=== PATIENT | male | born 1945 | race African-American/Black ===

== ENCOUNTER 2016-09-28 11:16 | Inpatient (IN) | payer OTHER ==
[2016-09-28] MEDS ORDERED: ALBUTEROL SO4 2.5/IPRATROPIUM 0.5 INH SOL 3 ML VIAL.NEB. NEB ONE ×2 (11:45→12:39)
[2016-09-28] MEDS ORDERED: methylPREDNISolone NA SUCC 125 MG/2 ML VIAL IVPB ONE (12:05)
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
[2016-09-28] MEDS ORDERED: methylPREDNISolone NA SUCC 125 MG/2 ML VIAL ONE ×2 (12:30→21:14)
[2016-09-28 12:36] LABS: BASOPHIL 0.4 % (0-2.0); EOSINOPHIL 0.1 % (0-4.5); MCH 30.3 pg (25.7-33.7); MCHC 32.3 g/dl (32.0-35.9); MEAN CELL VOLUME 93.9 fl (80-96); MEAN PLT VOLUME 9.7 fl (7.5-11.1); NEUTROPHILS 87.7 % (42.8-82.8); PLATELET COUNT 219 K/MM3 (134-434); RDW 15.8 % (11.9-15.9); WHITE BLOOD COUNT 10.4 K/mm3 (4.0-10.0)
[2016-09-28] MEDS ORDERED: MAGNESIUM SULF 50% (8.12 MEQ/2 ML-1 GM VIAL) IVPB ONE (12:40)
[2016-09-28] MEDS ORDERED: MAGNESIUM SULF 50% (8.12 MEQ/2 ML-1 GM VIAL) ONE (12:41)
[2016-09-28 12:42] LABS: VENOUS BLOOD GAS HCO3 27.1 meq/L (22-29); VENOUS PH 7.26 (7.31-7.41)
[2016-09-28 12:54] LABS: ALBUMIN 3.8 g/dl (3.4-5.0); CREATININE 2.1 mg/dL (0.7-1.3)
[2016-09-28 12:58] LABS: BILIRUBIN,TOTAL 0.3 mg/dL (0.2-1.0); TOT PROT 7.3 g/dl (6.4-8.2); TROPONIN I 0.02 ng/ml (0.00-0.05)
[2016-09-28] MEDS ORDERED: AZITHROMYCIN IVPB 500 MG in DEXTROSE 5%-WATER - 250 ML IVPB ONE (14:05)
[2016-09-28] MEDS ORDERED: CEFTRIAXONE 1 GM in DEXTROSE 5%-WATER - 50 ML IVPB ONE (14:05)
[2016-09-28] MEDS ORDERED: guaiFENesin/CODEINE 10 ML UNIT-DOSE CUPS PO ONE (14:12)
[2016-09-28] MEDS ORDERED: morphine CARPU-JECT 2 MG/1 ML DISP.SYRIN IVPUSH ONE (14:12)
[2016-09-28] MEDS ORDERED: morphine CARPU-JECT 2 MG/1 ML DISP.SYRIN ONE (14:15)
[2016-09-28] MEDS ORDERED: guaiFENesin/CODEINE 5 ML UNIT-DOSE CUPS PO ONE ×2 (14:15→21:14)
[2016-09-28] MEDS ORDERED: CEFTRIAXONE 50 ML ONE (14:33)
[2016-09-28] MEDS ORDERED: AZITHROMYCIN IVPB 250 ML IVPB ONE (14:40)
[2016-09-28] MEDS ORDERED: morphine CARPU-JECT 4 MG/1 ML DISP.SYRIN IVPUSH ONE ×2 (15:18→18:53)
[2016-09-28] MEDS ORDERED: morphine CARPU-JECT 4 MG/1 ML DISP.SYRIN ONE ×2 (15:19→18:44)
--- NOTE | 2016-09-28 16:14 | EKG ---
Test Reason : Blood Pressure : / mmHG Vent. Rate : 089 BPM Atrial Rate : 089 BPM P-R Int : 174 ms QRS Dur : 086 ms QT Int : 350 ms P-R-T Axes : 031 -25 056 degrees QTc Int : 425 ms SINUS RHYTHM WITH FREQUENT PREMATURE VENTRICULAR COMPLEXES AND PREMATURE ATRIAL COMPLEXES POSSIBLE LEFT ATRIAL ENLARGEMENT LEFT VENTRICULAR HYPERTROPHY ABNORMAL ECG WHEN COMPARED WITH ECG OF 04-MAY-2016 16:56, PREMATURE VENTRICULAR COMPLEXES ARE NOW PRESENT SD INTERVAL HAS DECREASED Confirmed by SHASHANK GUTIERREZ MD ([id number]) on 09/28/2016 4:14:25 PM Referred By: Confirmed By:SHASHANK GUTIERREZ MD
--- NOTE | 2016-09-28 16:26 | PN ---
Progress Note (short form) - Note Progress Note: PULMONARY CONSULTATION DICTATED 09/28/16 IMP ACUTE ON CHRONIC HYPOXEMIC/HYPERCAPNEIC RESPIRATORY FAILURE ADVANCED COPD O2 DEPENDENT PNEUMONIA ARIELLE NODULE HTN DM CKD H/O PANCREATITIS PLAN IV STEROIDS INHALED BRONCHODILATORS ANTIBIOTICS SUPPLEMENTAL O2 SPUTUM C+S BIPAP IF PT DEVELOPES INCREASED RESPIRATORY DISTRESS,HYPERCAPNEA ABG CHEST CT MONITOR LYTES,RENAL FUNCTION MONITOR BLOOD SUGARS Problem List - Problems (1) CKD (chronic kidney disease) Code(s): N18.9 - CHRONIC KIDNEY DISEASE, UNSPECIFIED Qualifiers: Chronic kidney disease stage: unspecified stage Qualified Code(s): N18.9 - Chronic kidney disease, unspecified (2) COPD exacerbation Code(s): J44.1 - CHRONIC OBSTRUCTIVE PULMONARY DISEASE W (ACUTE) EXACERBATION (3) Cough Code(s): R05 - COUGH (4) Diabetes mellitus, insulin dependent (IDDM), uncontrolled Code(s): E10.65 - TYPE 1 DIABETES MELLITUS WITH HYPERGLYCEMIA Qualifiers: Diabetes mellitus complication status: without complication Qualified Code(s): E10.9 - Type 1 diabetes mellitus without complications (5) HTN (hypertension) Code(s): I10 - ESSENTIAL (PRIMARY) HYPERTENSION Qualifiers: Hypertension type: essential hypertension Qualified Code(s): I10 - Essential (primary) hypertension (6) Hyperlipidemia LDL goal < 100 Code(s): E78.5 - HYPERLIPIDEMIA, UNSPECIFIED (7) Pneumonia Code(s): J18.9 - PNEUMONIA, UNSPECIFIED ORGANISM Qualifiers: Pneumonia type: due to unspecified organism Laterality: right Lung location: lower lobe of lung Qualified Code(s): J18.9 - Pneumonia, unspecified organism (8) Shortness of breath Code(s): R06.02 - SHORTNESS OF BREATH (9) Wheeze Code(s): R06.2 - WHEEZING (10) Anemia Code(s): D64.9 - ANEMIA, UNSPECIFIED Qualifiers: Anemia type: unspecified anemia type (11) COPD (chronic obstructive pulmonary disease) Code(s): J44.9 - CHRONIC OBSTRUCTIVE PULMONARY DISEASE, UNSPECIFIED Qualifiers : COPD type: chronic bronchitis (12) Leg edema Code(s): R60.0 - LOCALIZED EDEMA Qualifiers: Laterality: bilateral Qualified Code(s): R60.0 - Localized edema (13) Pulmonary nodule Code(s): R91.1 - SOLITARY PULMONARY NODULE (14) Acute on chronic respiratory failure with hypoxia and hypercapnia Code(s): J96.21 - ACUTE AND CHRONIC RESPIRATORY FAILURE WITH HYPOXIA J96.22 - ACUTE AND CHRONIC RESPIRATORY FAILURE WITH HYPERCAPNIA
[2016-09-28 16:36] LABS: ALLENS TEST POSITIVE; ART PUNCT SITE RIGHT RADIAL; ARTERIAL BLD GAS O2 SATURATION 91.9 % (90-98.9); ARTERIAL BLOOD GAS BASE EXCESS -2.3 meq/l (-2-2); ARTERIAL BLOOD GAS PO2 76.3 mmHg (70-100); LPM/O2% 3L; PT. ON O2? YES
[2016-09-28 16:37] LABS: TYPE OF O2 NASAL O2
[2016-09-28 16:43] LABS: ARTERIAL BLOOD GAS pH 7.33 (7.35-7.45)
--- NOTE | 2016-09-28 17:52 | CONS ---
DATE OF CONSULTATION: 09/28/2016 PULMONARY CONSULTATION REFERRING PHYSICIAN: Misti Crenshaw M.D. HISTORY OF PRESENT ILLNESS: The patient is a 71-year-old black male known to me from previous hospitalization for advanced COPD, hypertension, hyperlipidemia, CHF, chronic kidney disease, diabetes, history of pancreatitis, BPH, anemia, admitted to [facility] with complaint of 4-day history of increasing shortness of breath, cough, and sputum production. Patient denies complaints of fevers or chills. He states that the cough is productive of whitish yellow sputum. He denies hemoptysis. He also complains of chest pain associated with the coughing. He denies any hemoptysis, denies any recent travel. He has a history of tobacco use and currently occasionally smokes a cigarette. In the emergency room he was found to be in moderate respiratory distress. He received steroids and inhaled bronchodilators with some clinical improvement. The VBG showed evidence of respiratory acidosis with a pCO2 in the 60s. PAST MEDICAL HISTORY: Again includes advanced COPD, diabetes, hyperlipidemia, hypertension, chronic kidney disease, CHF, chronic back pain, BPH, anemia, pancreatitis. MEDICATION: Prior to admission include amlodipine, aspirin, Lopid, Hytrin, Cozaar, vitamin B12, diltiazem, Movantik, prednisone, Januvia, Ambien, Lasix, Reglan, seen, Zyloprim, Augmentin,. REVIEW OF SYSTEMS: Positive cough. Positive shortness of breath. Positive orthopnea. Positive dyspnea. Positive chest congestion. Positive chest pain. No fever. No chills. No hemoptysis. No abdominal pain. Positive lower extremity edema. PHYSICAL EXAMINATION: General: The patient is an obese male, awake, alert, dyspneic, congested. Vital signs: He is currently afebrile. Blood pressure is 130/66, respiratory rate 18, O2 saturation initially was 87% on room air. HEENT: Head is normocephalic, atraumatic. Neck: Supple. Heart: Regular. S1, S2. Chest: Bilateral rhonchi and wheezes. Abdomen: Soft. Bowel sounds positive. Extremities: Bilateral lower extremity edema approximately 1+. LABORATORY: VBG: pH 7.26, pCO2 of 62, pO2 of 29. Previous pCO2s were 46 and 47. Chemistry: BUN 55, creatinine 2.1, WBC is 10.4, hemoglobin 9.7, hematocrit 30, platelet count of 219,000. Chest x-ray shows left upper lode nodule, increased markings right lower lobe. IMPRESSION: 1. [id number], acute hypoxemia, hypercapnic respiratory failure, decompensated chronic obstructive pulmonary disease. 2. Likely pneumonia, right lower lobe. 3. Left upper lobe nodule. 4. Hypertension. 5. Chronic kidney disease. 6. Hypertension. 7. History of pancreatitis. PLAN: IV steroids, inhaled bronchodilators, supplemental O2, antibiotic therapy , check arterial blood gases, BiPAP if patient develops progressive hypercapnia respiratory distress, monitor renal function, glycemia control while on glycemic control,sputum c+s. Also CT scan of chest to further evaluate possible left lobe nodule as well as right lower lobe infiltrate. ALEX CEVALLOS M.D. MAGNOLIA/[id number] MTDD
[2016-09-28] MEDS ORDERED: INSULIN (NOVOLOG MIX 70/30) 100 UNITS/ML MDV SQ ONE ×3 (18:45→18:58)
[2016-09-28] MEDS ORDERED: ALBUTEROL SO4 0.083% IH SOL 2.5 MG/3 ML VIAL.NEB. NEB ONE (20:35)
[2016-09-28 20:50] VITALS: BMI 37.3
[2016-09-28] MEDS: TIOTROPIUM BROMIDE 18 MCG/INH (DEVICE W/ 30 CAPSULES) IH SCH (21:12)
[2016-09-28] MEDS: BUDESONIDE/FORMETEROL FUMARATE 160/4.5 mcg INHALER IH SCH (21:13)
[2016-09-28] MEDS: ALBUTEROL SO4 0.083% IH SOL 2.5 MG/3 ML VIAL.NEB. NEB PRN (21:13)
[2016-09-28] MEDS: methylPREDNISolone NA SUCC 125 MG/2 ML VIAL IVPB SCH (21:20)
[2016-09-28] MEDS: guaiFENesin/CODEINE 10 ML UNIT-DOSE CUPS PO PRN (21:20)
[2016-09-29] MEDS: methylPREDNISolone NA SUCC 125 MG/2 ML VIAL IVPB SCH ×4 (02:04→22:29)
[2016-09-29] MEDS ORDERED: guaiFENesin/CODEINE 5 ML UNIT-DOSE CUPS PO PRN (05:17)
[2016-09-29] MEDS: guaiFENesin/CODEINE 10 ML UNIT-DOSE CUPS PO PRN (05:20)
[2016-09-29] MEDS: ALBUTEROL SO4 0.083% IH SOL 2.5 MG/3 ML VIAL.NEB. NEB PRN ×3 (06:30→21:14)
[2016-09-29] MEDS ORDERED: SENNOSIDES 8.6MG TABLET (FP) PO PRN (08:30)
[2016-09-29] MEDS ORDERED: PATIENT'S OWN MEDICATION (NON-FORMULARY) (Naloxegol Oxalate [Movantik] 25 MG) PO PRN (08:30)
[2016-09-29 08:41] LABS: MCH 29.8 pg (25.7-33.7); MCHC 32.2 g/dl (32.0-35.9); MEAN CELL VOLUME 92.7 fl (80-96); MEAN PLT VOLUME 9.8 fl (7.5-11.1); PLATELET COUNT 209 K/MM3 (134-434); WHITE BLOOD COUNT 12.4 K/mm3 (4.0-10.0)
[2016-09-29] MEDS ORDERED: ACETAMINOPHEN 325 MG TABLET (FP) PO PRN (08:57)
[2016-09-29] MEDS: HYDROmorphone HCL CARPU-JECT 2 MG/1 ML DISP.SYRIN IVPUSH PRN ×3 (09:29→21:38)
[2016-09-29] MEDS: LACTULOSE 20 GM/30 ML UDC (FOR ORAL USE ONLY) PO SCH (09:30)
[2016-09-29] MEDS: CEFTRIAXONE 50 ML IVPB SCH (09:31)
[2016-09-29] MEDS: sitaGLIPtin PHOSPHATE 25 MG TABLET (FP) PO SCH (09:32)
[2016-09-29] MEDS: TAMSULOSIN HCL 0.4 MG CAP.ER.24H (FP) PO SCH ×2 (09:32→22:29)
[2016-09-29] MEDS: POTASSIUM CHLORIDE TABS 20 MEQ TABLET.ER (FP) PO SCH (09:32)
[2016-09-29] MEDS: RANITIDINE HCL 150 MG TABLET (FP) PO SCH (09:32)
[2016-09-29] MEDS: ASPIRIN 81 MG CHEWABLE TABLETS PO SCH (09:32)
[2016-09-29] MEDS: DOCUSATE SODIUM 100 MG CAPSULE (FP) PO SCH ×2 (09:32→22:29)
[2016-09-29] MEDS: GEMFIBROZIL 600 MG TABLET (FP) PO SCH ×2 (09:32→22:30)
[2016-09-29] MEDS: LOSARTAN POTASSIUM 50 MG TABLET (FP) PO SCH (09:33)
[2016-09-29] MEDS: fentaNYL 75mcg/hr PATCH.TD72 TD SCH (09:33)
[2016-09-29] MEDS: ALLOPURINOL 100 MG TABLET (FP) PO SCH (09:36)
--- NOTE | 2016-09-29 10:41 | HP ---
Admitting History and Physical - Admission History of Present Illness: 71y M hx of CHF, CKD, HTN, HL, DM, COPD, back pain, bph, anemia, pancreatitis presents to 4 days of worsening cough/congestion. The pt denies any fevers/ chills. STates the cough is intermittently productive of whitish sputum. Pt endorses chest pain when he is coughing significantly. No known sick contacts or travel. The pt went to his PMDs office yesterday who gave him steroids and augmentin, but sypmtoms worsened so he came to the ED. Pt states that his coughing was bad last night, he also feels orthopneic and noticed mild leg swelling this morning. No leg pain, calf pain, hemopysis. - Past Medical History BLENDING KETTLE TENDER: Yes: Migraine Cardiovascular: Yes: CHF, HTN, Hyperlipdemia Pulmonary: Yes: COPD, O2 Dependent Gastrointestinal: Yes: GERD Renal/: Yes: Renal Inusuff, BPH, Cancer, Hematuria, UTI, Other (CKD) Heme/Onc: Yes: Anemia Psych: Yes: Anxiety Musculoskeletal: Yes: Chronic low back pain, Osteoarthritis Endocrine: Yes: Diabetes Mellitus - Past Surgical History Past Surgical History: Yes: Colonoscopy (Done last December (2013) negative for significant pathology) - Smoking History Smoking history: Former smoker Have you smoked in the past 12 months: No Aproximately how many cigarettes per day: 2 If you are a former smoker, when did you quit?: 2012 - Alcohol/Substance Use Hx Alcohol Use: No Home Medications - Allergies Allergies/Adverse Reactions: Allergies Allergy/AdvReac Type Severity Reaction Status Date / Time No Known Drug Allergies Allergy Verified 05/04/16 11:01 HOT PEPPER Allergy SNEEZING Uncoded 05/04/16 11:01 - Home Medications Home Medications: Ambulatory Orders Aspirin [ASA -] 81 mg PO Q2D@1000 #30 tab.chew 12/27/14 Gemfibrozil [Lopid -] 600 mg PO BID #180 tablet 12/27/14 Terazosin HCl [Hytrin -] 5 mg PO HS #30 capsule 12/27/14 Losartan Potassium [Cozaar -] 50 mg PO DAILY tablet 05/05/15 Cyanocobalamin [Vitamin B12 -] 1 g PO DAILY 12/19/15 Lactulose 10 gm PO DAILY 12/20/15 Iron 325 mg PO BID 02/22/16 Tamsulosin HCl [Flomax -] 0.4 mg PO BID 02/22/16 FENTANYL 75mcg PATCH [DURAGESIC 75mcg PATCH -] 1 patch TD Q72H 02/23/16 Albuterol Sulfate Inhaler - [Ventolin HFA Inhaler -] 1 - 2 inh PO Q4H #1 inhaler 03/11/16 Docusate Sodium [Colace -] 100 mg PO BID #60 capsule 03/11/16 Diltiazem Cd [Cardizem Cd -] 120 mg PO DAILY 05/05/16 Naloxegol Oxalate [Movantik] 25 mg PO DAILY PRN 05/05/16 Potassium Chloride [K-Dur -] 20 meq PO DAILY 05/05/16 Prednisone 10 mg PO DAILY 05/05/16 Sitagliptin Phosphate [Januvia] 25 mg PO DAILY 05/05/16 Zolpidem Tartrate [Ambien] 10 mg PO HS PRN 05/05/16 Furosemide [Lasix -] 60 mg PO DAILY tablet 05/09/16 Metoclopramide HCl [Reglan -] 5 mg PO TIDAC tablet 05/09/16 Sennosides [Senna -] 2 tab PO HS PRN #0 tablet 05/09/16 Oxycodone HCl/Acetaminophen [Percocet 10-325 mg Tablet] 1 each PO TID PRN #60 tablet MDD 3 05/10/16 Allopurinol [Zyloprim -] 100 mg PO DAILY 09/28/16 Amoxicillin/Potassium Clav [Amox-Clav 875-125 mg Tablet] 1 each PO BID 09/28/16 Cefuroxime Axetil [Cefuroxime] 500 mg PO BID 09/28/16 Lactulose [Generlac] 10 gm PO DAILY 09/28/16 Ranitidine HCl 300 mg PO DAILY 09/28/16 Sennosides [Senokot] 8.6 mg PO DAILY 09/28/16 Family Disease History - Family Disease History Family Disease History: Diabetes: Brother, Heart Disease: Brother Review of Systems - Review of Systems Cardiovascular: reports: Shortness of Breath. denies: Chest Pain Respiratory: reports: Cough, SOB Gastrointestinal: reports: Bloating, Constipation Genitourinary: denies: Burning, Discharge, Dysuria Musculoskeletal: reports: Back Pain Neurological: reports: No Symptoms Physical Examination Vital Signs: Vital Signs Temperature 98.3 F 09/29/16 06:18 Pulse Rate 82 09/29/16 06:18 Respiratory Rate 18 09/29/16 06:18 Blood Pressure 149/61 09/29/16 06:18 O2 Sat by Pulse Oximetry (%) 92 L 09/28/16 15:22 Cardiovascular: Yes: Regular Rate and Rhythm Respiratory: Yes: Rales (AT THE BASES) Edema: LLE: 1+, RLE: 1+ Neurological: Yes: Alert, Oriented Labs: CBC, BMP 09/29/16 08:10 09/29/16 08:10 Imaging - Results Cat Scan: Report Reviewed Problem List - Problems (1) COPD exacerbation Assessment/Plan: IV STEROIDS IV ABX NEBS INCENTIVE SPIROMETRY Code(s): J44.1 - CHRONIC OBSTRUCTIVE PULMONARY DISEASE W (ACUTE) EXACERBATION (2) CKD (chronic kidney disease) Assessment/Plan: MONITOR ON DIURETICS Code(s): N18.9 - CHRONIC KIDNEY DISEASE, UNSPECIFIED Qualifiers: Chronic kidney disease stage: unspecified stage Qualified Code(s): N18.9 - Chronic kidney disease, unspecified (3) Diabetes mellitus, insulin dependent (IDDM), uncontrolled Assessment/Plan: BGM ENDO Code(s): E10.65 - TYPE 1 DIABETES MELLITUS WITH HYPERGLYCEMIA Qualifiers: Diabetes mellitus complication status: without complication Qualified Code(s): E10.9 - Type 1 diabetes mellitus without complications (4) CHF (congestive heart failure) Assessment/Plan: IV LASIX MONITOR Code(s): I50.9 - HEART FAILURE, UNSPECIFIED Qualifiers: Congestive heart failure type: diastolic (5) Back pain Assessment/Plan: CHRONICALLY ON PAIN MEDS DILUADID PRN Code(s): M54.9 - DORSALGIA, UNSPECIFIED
[2016-09-29] MEDS: METOCLOPRAMIDE HCL 10 MG TABLET (FP) PO SCH ×2 (12:11→16:50)
[2016-09-29] MEDS: TIOTROPIUM BROMIDE 18 MCG/INH (DEVICE W/ 30 CAPSULES) IH SCH (12:18)
[2016-09-29] MEDS: BUDESONIDE/FORMETEROL FUMARATE 160/4.5 mcg INHALER IH SCH ×2 (12:18→22:29)
[2016-09-29] MEDS: AZITHROMYCIN IVPB 250 MG in DEXTROSE 5%-WATER - 250 ML IVPB SCH (12:18)
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
[2016-09-29] MEDS ORDERED: PT OWN MED DRAWER 7, Y5N ONE (21:14)
[2016-09-29] MEDS: TERAZOSIN HCL 5 MG CAPSULE PO SCH (22:30)
[2016-09-29] MEDS: ZOLPIDEM TARTRATE 5 MG TABLET PO PRN (22:30)
[2016-09-29] MEDS: INSULIN SLIDING SCALE (NOVOLOG) 1 VIAL SQ SCH (23:30)
[2016-09-30] MEDS: methylPREDNISolone NA SUCC 125 MG/2 ML VIAL IVPB SCH ×2 (02:00→09:16)
[2016-09-30] MEDS: HYDROmorphone HCL CARPU-JECT 2 MG/1 ML DISP.SYRIN IVPUSH PRN ×3 (02:11→20:16)
[2016-09-30] MEDS ORDERED: INSULIN (NOVOLOG) ASPART 100 UNITS/ML 10ML VIAL ONE ×3 (06:16→21:11)
[2016-09-30] MEDS: ALBUTEROL SO4 0.083% IH SOL 2.5 MG/3 ML VIAL.NEB. NEB PRN ×3 (06:29→19:43)
[2016-09-30] MEDS: sitaGLIPtin PHOSPHATE 25 MG TABLET (FP) PO SCH (06:57)
[2016-09-30] MEDS: INSULIN SLIDING SCALE (NOVOLOG) 1 VIAL SQ SCH ×5 (06:57→22:26)
[2016-09-30] MEDS: METOCLOPRAMIDE HCL 10 MG TABLET (FP) PO SCH ×3 (06:57→17:18)
--- NOTE | 2016-09-30 09:12 | PN ---
Progress Note, Physician History of Present Illness: feels better - Current Medication List Current Medications: Active Medications Acetaminophen (Tylenol -) 650 mg PO Q4H PRN PRN Reason: FEVER OR PAIN Albuterol Sulfate (Ventolin 0.083% Nebulizer Soln -) 1 amp NEB Q4H PRN PRN Reason: SHORT OF BREATH/WHEEZING Last Admin: 09/30/16 06:29 Dose: 1 amp Allopurinol (Zyloprim -) 100 mg PO DAILY [facility] Last Admin: 09/29/16 09:36 Dose: 100 mg Aspirin (Asa -) 81 mg PO Q2D@1000 [facility] Last Admin: 09/29/16 09:32 Dose: 81 mg Budesonide/Formoterol Fumarate (Symbicort 160/4.5mcg -) 2 puff IH BID [facility] Last Admin: 09/29/16 22:29 Dose: 2 puff Diltiazem HCl (Cardizem Cd -) 120 mg PO DAILY [facility] Last Admin: 09/29/16 09:32 Dose: 120 mg Docusate Sodium (Colace -) 100 mg PO BID [facility] Last Admin: 09/29/16 22:29 Dose: 100 mg Fentanyl (Duragesic 75mcg Patch -) 1 patch TD Q72H [facility] Last Admin: 09/29/16 09:33 Dose: 1 patch Gemfibrozil (Lopid -) 600 mg PO BID [facility] Last Admin: 09/29/16 22:30 Dose: 600 mg Guaifenesin/Codeine Phosphate (Robitussin Ac -) 10 ml PO Q8H PRN PRN Reason: COUGH Hydromorphone HCl (Dilaudid Injection -) 2 mg IVPUSH Q6H PRN PRN Reason: PAIN Last Admin: 09/30/16 02:11 Dose: 2 mg Ceftriaxone Sodium (Rocephin 1gm Ivpb (Pre-Docked)) 50 mls @ 100 mls/hr IVPB DAILY [facility] Last Admin: 09/29/16 09:31 Dose: 100 mls/hr Azithromycin 250 mg/ Dextrose 250 mls @ 250 mls/hr IVPB DAILY [facility] Last Admin: 09/29/16 12:18 Dose: 250 mls/hr Insulin Aspart (Novolog Vial Sliding Scale -) 1 vial SQ ACHS [facility] PRN Reason: Protocol Last Admin: 01/29/17 06:57 Dose: 4 unit Lactulose (Cephulac (Oral Use)) 10 gm PO DAILY [facility] Last Admin: 09/29/16 09:30 Dose: 10 gm Losartan Potassium (Cozaar -) 50 mg PO DAILY [facility] Last Admin: 09/29/16 09:33 Dose: 50 mg Methylprednisolone Sodium Succinate (Solu-Medrol -) 60 mg IVPB Q6H-IV [facility] Last Admin: 09/30/16 02:00 Dose: 60 mg Metoclopramide HCl (Reglan -) 5 mg PO TIDAC [facility] Last Admin: 09/30/16 06:57 Dose: 5 mg Miscellaneous (Duragesic Patch Waste) 1 each TD PRN PRN Non-Formulary Medication (Naloxegol Oxalate [Movantik]) 25 mg PO DAILY PRN PRN Reason: CONSTIPATION Potassium Chloride (K-Dur -) 20 meq PO DAILY [facility] Last Admin: 09/29/16 09:32 Dose: 20 meq Ranitidine HCl (Zantac -) 300 mg PO DAILY [facility] Last Admin: 09/29/16 09:32 Dose: 300 mg Senna (Senna -) 2 tab PO HS PRN PRN Reason: CONSTIPATION Last Admin: 09/29/16 22:32 Dose: 2 tab Sitagliptin Phosphate (Januvia -) 25 mg PO DAILY@0700 [facility] Last Admin: 09/30/16 06:57 Dose: 25 mg Tamsulosin HCl (Flomax -) 0.4 mg PO BID [facility] Last Admin: 09/29/16 22:29 Dose: 0.4 mg Terazosin HCl (Hytrin -) 5 mg PO HS [facility] Last Admin: 09/29/16 22:30 Dose: 5 mg Tiotropium [place] (Spiriva -) 1 puff IH DAILY [facility] Last Admin: 09/29/16 12:18 Dose: 1 puff Zolpidem Tartrate (Ambien -) 5 mg PO HS PRN PRN Reason: INSOMNIA Last Admin: 09/29/16 22:30 Dose: 5 mg - Objective Vital Signs: Vital Signs Temperature 97.9 F 09/30/16 06:47 Pulse Rate 82 09/30/16 06:47 Respiratory Rate 18 09/30/16 06:47 Blood Pressure 143/75 09/30/16 06:47 O2 Sat by Pulse Oximetry (%) 92 L 09/30/16 00:43 Cardiovascular: Yes: Regular Rate and Rhythm Respiratory: Yes: Rales (AT THE BASES) Gastrointestinal: Yes: Normal Bowel Sounds, Soft Edema: Yes Edema: LLE: 2+, RLE: 2+ Labs: CBC, BMP 09/29/16 08:10 09/29/16 08:10 Problem List - Problems (1) COPD exacerbation Assessment/Plan: IV STEROIDS PER PULM IV ABX NEBS INCENTIVE SPIROMETRY Code(s): J44.1 - CHRONIC OBSTRUCTIVE PULMONARY DISEASE W (ACUTE) EXACERBATION (2) CKD (chronic kidney disease) Assessment/Plan: MONITOR ON DIURETICS Code(s): N18.9 - CHRONIC KIDNEY DISEASE, UNSPECIFIED Qualifiers: Chronic kidney disease stage: unspecified stage Qualified Code(s): N18.9 - Chronic kidney disease, unspecified (3) Diabetes mellitus, insulin dependent (IDDM), uncontrolled Assessment/Plan: BGM ENDO Code(s): E10.65 - TYPE 1 DIABETES MELLITUS WITH HYPERGLYCEMIA Qualifiers: Diabetes mellitus complication status: without complication Qualified Code(s): E10.9 - Type 1 diabetes mellitus without complications (4) CHF (congestive heart failure) Assessment/Plan: IV LASIX BID MONITOR Code(s): I50.9 - HEART FAILURE, UNSPECIFIED Qualifiers: Congestive heart failure type: diastolic (5) Back pain Assessment/Plan: CHRONICALLY ON PAIN MEDS DILUADID PRN Code(s): M54.9 - DORSALGIA, UNSPECIFIED
[2016-09-30] MEDS: GEMFIBROZIL 600 MG TABLET (FP) PO SCH ×2 (09:19→21:16)
[2016-09-30] MEDS: LACTULOSE 20 GM/30 ML UDC (FOR ORAL USE ONLY) PO SCH (09:19)
[2016-09-30] MEDS: RANITIDINE HCL 150 MG TABLET (FP) PO SCH (09:19)
[2016-09-30] MEDS: CEFTRIAXONE 50 ML IVPB SCH (09:19)
[2016-09-30] MEDS: TAMSULOSIN HCL 0.4 MG CAP.ER.24H (FP) PO SCH ×2 (09:20→21:16)
[2016-09-30] MEDS: LOSARTAN POTASSIUM 50 MG TABLET (FP) PO SCH (09:20)
[2016-09-30] MEDS: POTASSIUM CHLORIDE TABS 20 MEQ TABLET.ER (FP) PO SCH (09:20)
[2016-09-30] MEDS: ALLOPURINOL 100 MG TABLET (FP) PO SCH (09:20)
[2016-09-30] MEDS: DOCUSATE SODIUM 100 MG CAPSULE (FP) PO SCH ×2 (09:20→21:16)
[2016-09-30] MEDS: BUDESONIDE/FORMETEROL FUMARATE 160/4.5 mcg INHALER IH SCH ×2 (09:22→21:21)
[2016-09-30] MEDS: TIOTROPIUM BROMIDE 18 MCG/INH (DEVICE W/ 30 CAPSULES) IH SCH (09:22)
--- NOTE | 2016-09-30 10:56 | PN ---
Progress Note (short form) - Note Progress Note: PULMONARY MILD SUBJECTIVE IMPROVEMENT OOB TO CHAIR VSS/AFEBRILE/SPO2 2L/M O2 ANICTERIC DIMINISHED B/L BS S1S2 OBESE 1+EDEMA B/L LOWER EXT LABS/MEDS/IMAGING/NOTES/MICRO REVIEWED IMP ACUTE ON CHRONIC HYPOXEMIC/HYPERCAPNEIC RESPIRATORY FAILURE ADVANCED COPD O2 DEPENDENT PNEUMONIA ARIELLE NODULE HTN DM CKD H/O PANCREATITIS PLAN IV STEROIDS DOSE ADJUSTED INHALED BRONCHODILATORS ANTIBIOTICS SUPPLEMENTAL O2 BIPAP PRN MONITOR LYTES,RENAL FUNCTION GLYCEMIC CONTROL Jered VALE MD
[2016-09-30] MEDS: AZITHROMYCIN IVPB 250 MG in DEXTROSE 5%-WATER - 250 ML IVPB SCH (11:54)
[2016-09-30] MEDS: FUROSEMIDE 40 MG/4 ML INJECTABLE VIAL IVPUSH SCH (14:36)
[2016-09-30] MEDS: methylPREDNISolone NA SUCC 40 MG/1 ML VIAL IVPB SCH (17:18)
[2016-09-30] MEDS ORDERED: PT OWN MED DRAWER 7, Y5N ONE (21:11)
[2016-09-30] MEDS: TERAZOSIN HCL 5 MG CAPSULE PO SCH (21:16)
--- NOTE | 2016-09-30 23:36 | CONSULT ---
Consult Consult Specialty:: endocrine/diabetes mellitus Referred by:: dr.iyad gilliland Reason for Consultation:: iddm uncontrolled - History of Present Illness Chief Complaint: cough wheezing difficulty breathing, high blood sugars History of Present Illness: 71y M hx of CHF, CKD, HTN, HL, DM, COPD, back pain, bph, anemia, pancreatitis presents to 4 days coughing congestion,difficulty breathing,high blood sugars while on high dose of prednisone,has felt,tightness in chest from coughing, nausea,headache,weakness,poor appetite yet high sugars,denies hypoglycemia, fever or chills - History Source History Provided By: Patient, Family Member Limitations to Obtaining History: Clinical Condition - Past Medical History 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: Yes: Migraine Cardio/Vascular: Yes: CHF, HTN, Hyperlipdemia Pulmonary: Yes: COPD, O2 Dependent Gastrointestinal: Yes: GERD Renal/: Yes: Renal Inusuff, BPH, Cancer, Hematuria, UTI, Other (CKD) Psych: Yes: Anxiety Musculoskeletal: Yes: Chronic low back pain, Osteoarthritis Endocrine: Yes: Diabetes Mellitus - Past Surgical History Past Surgical History: Yes: Colonoscopy (Done last December (2013) negative for significant pathology) - Alcohol/Substance Use Hx Alcohol Use: No - Smoking History Smoking history: Former smoker Have you smoked in the past 12 months: No Aproximately how many cigarettes per day: 2 If you are a former smoker, when did you quit?: 2013 Home Medications - Allergies Allergies/Adverse Reactions: Allergies Allergy/AdvReac Type Severity Reaction Status Date / Time No Known Drug Allergies Allergy Verified 05/04/16 11:01 HOT PEPPER Allergy SNEEZING Uncoded 05/04/16 11:01 - Home Medications Home Medications: Ambulatory Orders Aspirin [ASA -] 81 mg PO Q2D@1000 #30 tab.chew 12/27/14 Gemfibrozil [Lopid -] 600 mg PO BID #180 tablet 12/27/14 Terazosin HCl [Hytrin -] 5 mg PO HS #30 capsule 12/27/14 Losartan Potassium [Cozaar -] 50 mg PO DAILY tablet 05/05/15 Cyanocobalamin [Vitamin B12 -] 1 g PO DAILY 12/19/15 Lactulose 10 gm PO DAILY 12/20/15 Iron 325 mg PO BID 02/22/16 Tamsulosin HCl [Flomax -] 0.4 mg PO BID 02/22/16 FENTANYL 75mcg PATCH [DURAGESIC 75mcg PATCH -] 1 patch TD Q72H 02/23/16 Albuterol Sulfate Inhaler - [Ventolin HFA Inhaler -] 1 - 2 inh PO Q4H #1 inhaler 03/11/16 Docusate Sodium [Colace -] 100 mg PO BID #60 capsule 03/11/16 Diltiazem Cd [Cardizem Cd -] 120 mg PO DAILY 05/05/16 Naloxegol Oxalate [Movantik] 25 mg PO DAILY PRN 05/05/16 Potassium Chloride [K-Dur -] 20 meq PO DAILY 05/05/16 Prednisone 10 mg PO DAILY 05/05/16 Sitagliptin Phosphate [Januvia] 25 mg PO DAILY 05/05/16 Zolpidem Tartrate [Ambien] 10 mg PO HS PRN 05/05/16 Furosemide [Lasix -] 60 mg PO DAILY tablet 05/09/16 Metoclopramide HCl [Reglan -] 5 mg PO TIDAC tablet 05/09/16 Sennosides [Senna -] 2 tab PO HS PRN #0 tablet 05/09/16 Oxycodone HCl/Acetaminophen [Percocet 10-325 mg Tablet] 1 each PO TID PRN #60 tablet MDD 3 05/10/16 Allopurinol [Zyloprim -] 100 mg PO DAILY 09/28/16 Amoxicillin/Potassium Clav [Amox-Clav 875-125 mg Tablet] 1 each PO BID 09/28/16 Cefuroxime Axetil [Cefuroxime] 500 mg PO BID 09/28/16 Lactulose [Generlac] 10 gm PO DAILY 09/28/16 Ranitidine HCl 300 mg PO DAILY 09/28/16 Sennosides [Senokot] 8.6 mg PO DAILY 09/28/16 Family Disease History - Family Disease History Family Disease History: Diabetes: Brother, Heart Disease: Brother Review of Systems - Review of Systems Constitutional: reports: Loss of Appetite, Weakness Eyes: reports: Blurred Vision HENT: reports: No Symptoms Neck: reports: Decreased ROM Cardiovascular: reports: Palpitations Respiratory: reports: Exercise Intolerance, SOB on Exertion, Wheezing Gastrointestinal: reports: Bloating, Constipation, Indigestion Genitourinary: reports: No Symptoms Breasts: reports: No Symptoms Reported Musculoskeletal: reports: Muscle Weakness Integumentary: reports: No Symptoms Neurological: reports: Dizziness, Unsteady Gait, Weakness Endocrine: reports: Unexplained Weight Gain Hematology/Lymphatic: reports: No Symptoms Physical Exam Vital Signs: Vital Signs Temperature 97.7 F 09/30/16 14:00 Pulse Rate 86 09/30/16 14:00 Respiratory Rate 20 09/30/16 14:00 Blood Pressure 131/66 09/30/16 14:00 O2 Sat by Pulse Oximetry (%) 92 L 09/30/16 00:43 Constitutional: Yes: Anxious Eyes: Yes: EOM Intact HENT: Yes: Normocephalic Neck: Yes: Trachea Midline Cardiovascular: Yes: Tachycardia Respiratory: Yes: Rhonchi, SOB, Tachypnea, Wheezes Gastrointestinal: Yes: Normal Bowel Sounds ...Rectal Exam: Yes: Deferred Renal/: Yes: WNL Breast(s): Yes: WNL Edema: Yes Neurological: Yes: Alert, Oriented Labs: CBC, BMP 09/29/16 08:10 09/29/16 08:10 Problem List - Problems (1) Acute on chronic respiratory failure with hypoxia and hypercapnia Code(s): J96.21 - ACUTE AND CHRONIC RESPIRATORY FAILURE WITH HYPOXIA J96.22 - ACUTE AND CHRONIC RESPIRATORY FAILURE WITH HYPERCAPNIA (2) COPD exacerbation Code(s): J44.1 - CHRONIC OBSTRUCTIVE PULMONARY DISEASE W (ACUTE) EXACERBATION (3) Diabetes mellitus, insulin dependent (IDDM), uncontrolled Code(s): E10.65 - TYPE 1 DIABETES MELLITUS WITH HYPERGLYCEMIA Qualifiers: Diabetes mellitus complication status: without complication Qualified Code(s): E10.9 - Type 1 diabetes mellitus without complications (4) HTN (hypertension) Code(s): I10 - ESSENTIAL (PRIMARY) HYPERTENSION Qualifiers: Hypertension type: essential hypertension Qualified Code(s): I10 - Essential (primary) hypertension Assessment/Plan Current Active Problems Acute on chronic respiratory failure with hypoxia and hypercapnia (Acute) Back pain (Acute) [place] (Acute) CKD (chronic kidney disease) (Acute) COPD exacerbation (Acute) Cough (Acute) Diabetes mellitus, insulin dependent (IDDM), uncontrolled (Acute) HTN (hypertension) (Acute) Hyperlipidemia LDL goal < 100 (Acute) Hypertriglyceridemia (Acute) Pneumonia (Acute) Shortness of breath (Acute) Tachycardia (Acute) Wheeze (Acute) iddm neuropathy/insulin ressistant Laboratory Results - last 24 hr 09/30/16 09/30/16 09/30/16 06:11 11:54 17:28 POC Glucometer 207 269 202 09/30/16 20:30 POC Glucometer 229 Laboratory Tests 09/29/16 09/29/16 08:10 22:37 Sodium 140 Potassium 4.5 Chloride 101 Carbon Dioxide 25 Anion Gap 14 Creatinine 2.0 H POC Glucometer 350 Random Glucose 290 H D Current Medications Generic Name Dose Route Start Last Admin Trade Name Freq PRN Reason Stop Dose Admin Acetaminophen 650 mg 09/29/16 08:57 Tylenol - PO Q4H PRN FEVER OR PAIN Albuterol Sulfate 1 amp 09/28/16 16:35 09/30/16 19:43 Ventolin 0.083% Nebulizer Soln - NEB 1 amp Q4H PRN Administration SHORT OF BREATH/WHEEZING Allopurinol 100 mg 09/29/16 10:00 09/30/16 09:20 Zyloprim - PO 100 mg DAILY [facility] Administration Aspirin 81 mg 09/29/16 10:00 09/29/16 09:32 Asa - PO 81 mg Q2D@1000 [facility] Administration Budesonide/Formoterol Fumarate 2 puff 09/28/16 22:00 09/30/16 21:21 Symbicort 160/4.5mcg - IH 2 puff BID [facility] Administration Diltiazem HCl 120 mg 09/29/16 10:00 09/30/16 09:19 Cardizem Cd - PO 120 mg DAILY [facility] Administration Docusate Sodium 100 mg 09/29/16 10:00 09/30/16 21:16 Colace - PO 100 mg BID [facility] Administration Fentanyl 1 patch 09/29/16 08:30 09/29/16 09:33 Duragesic 75mcg Patch - TD 1 patch Q72H [facility] Administration Furosemide 40 mg 09/30/16 14:00 09/30/16 14:36 Lasix Injection - IVPUSH 40 mg BID@0600,1400 [facility] Administration Gemfibrozil 600 mg 09/29/16 10:00 09/30/16 21:16 Lopid - PO 600 mg BID [facility] Administration Guaifenesin/Codeine Phosphate 10 ml 09/29/16 05:17 Robitussin Ac - PO Q8H PRN COUGH Hydromorphone HCl 2 mg 09/29/16 08:32 09/30/16 20:16 Dilaudid Injection - IVPUSH 2 mg Q6H PRN Administration PAIN Ceftriaxone Sodium 50 mls @ 100 mls/hr 09/29/16 10:00 09/30/16 09:19 Rocephin 1gm Ivpb (Pre-Docked) IVPB 100 mls/hr DAILY [facility] Administration Azithromycin 250 mg/ Dextrose 250 mls @ 250 mls/hr 09/29/16 10:00 09/30/16 11: 54 IVPB 250 mls/hr DAILY [facility] Administration Insulin Aspart 1 vial 09/29/16 23:15 09/30/16 22:26 Novolog Vial Sliding Scale - SQ 4 unit ACHS [facility] Administration Protocol Insulin Aspart 25 units 10/01/16 07:00 Novolog Mix 70/30 Vial SQ BIDAC [facility] Lactulose 10 gm 09/29/16 10:00 09/30/16 09:19 Cephulac (Oral Use) PO 10 gm DAILY [facility] Administration Losartan Potassium 50 mg 09/29/16 10:00 09/30/16 09:20 Cozaar - PO 50 mg DAILY [facility] Administration Methylprednisolone Sodium Succinate 40 mg 09/30/16 18:00 09/30/16 17:18 Solu-Medrol - IVPB 40 mg Q8H-IV [facility] Administration Metoclopramide HCl 5 mg 09/29/16 11:00 09/30/16 17:18 Reglan - PO 5 mg TIDAC [facility] Administration Miscellaneous 1 each 09/29/16 09:01 Duragesic Patch Waste TD PRN PRN Non-Formulary Medication 25 mg 10/01/16 10:00 Naloxegol Oxalate [Movantik] PO DAILY [facility] Potassium Chloride 20 meq 09/29/16 10:00 09/30/16 09:20 K-Dur - PO 20 meq DAILY [facility] Administration Ranitidine HCl 300 mg 09/29/16 10:00 09/30/16 09:19 Zantac - PO 300 mg DAILY [facility] Administration Senna 2 tab 09/29/16 08:30 09/29/16 22:32 Senna - PO 2 tab HS PRN Administration CONSTIPATION Sitagliptin Phosphate 25 mg 09/29/16 07:00 09/30/16 06:57 Januvia - PO 25 mg DAILY@0700 [facility] Administration Tamsulosin HCl 0.4 mg 09/29/16 10:00 09/30/16 21:16 Flomax - PO 0.4 mg BID [facility] Administration Terazosin HCl 5 mg 09/29/16 22:00 09/30/16 21:16 Hytrin - PO 5 mg HS [facility] Administration Tiotropium [place] 1 puff 09/28/16 17:30 09/30/16 09:22 Spiriva - IH 1 puff DAILY [facility] Administration Zolpidem Tartrate 5 mg 09/29/16 22:00 09/29/16 22:30 Ambien - PO 5 mg HS PRN Administration INSOMNIA plan: bgm qid novolog insulin coverage novolog 70/30 25 units bid titrate dose as need based on diet and po intake renal consult ckd
[2016-10-01] MEDS: HYDROmorphone HCL CARPU-JECT 2 MG/1 ML DISP.SYRIN IVPUSH PRN ×4 (01:21→18:12)
[2016-10-01] MEDS: methylPREDNISolone NA SUCC 40 MG/1 ML VIAL IVPB SCH ×3 (01:25→17:13)
[2016-10-01] MEDS: FUROSEMIDE 40 MG/4 ML INJECTABLE VIAL IVPUSH SCH ×2 (06:20→13:35)
[2016-10-01] MEDS: sitaGLIPtin PHOSPHATE 25 MG TABLET (FP) PO SCH (06:20)
[2016-10-01] MEDS: INSULIN (NOVOLOG MIX 70/30) 100 UNITS/ML MDV SQ SCH ×2 (06:20→17:10)
[2016-10-01] MEDS: INSULIN SLIDING SCALE (NOVOLOG) 1 VIAL SQ SCH ×4 (06:21→22:28)
[2016-10-01] MEDS ORDERED: INSULIN (NOVOLOG MIX 70/30) 100 UNITS/ML MDV SQ SCH (07:00)
[2016-10-01 08:00] LABS: BASOPHIL 0.1 % (0-2.0); MCH 30.6 pg (25.7-33.7); MEAN CELL VOLUME 92.6 fl (80-96); MEAN PLT VOLUME 10.2 fl (7.5-11.1); NEUTROPHILS 94.2 % (42.8-82.8); PLATELET COUNT 212 K/MM3 (134-434); RDW 15.7 % (11.9-15.9); WHITE BLOOD COUNT 15.2 K/mm3 (4.0-10.0)
[2016-10-01] MEDS: METOCLOPRAMIDE HCL 10 MG TABLET (FP) PO SCH ×3 (08:12→17:12)
[2016-10-01 08:40] LABS: ALBUMIN 3.7 g/dl (3.4-5.0); BILIRUBIN,TOTAL 0.2 mg/dL (0.2-1.0); CALCIUM 8.9 mg/dL (8.5-10.1); CREATININE 2.8 mg/dL (0.7-1.3); TOT PROT 7.1 g/dl (6.4-8.2)
--- NOTE | 2016-10-01 09:42 | PN ---
Progress Note (short form) - Note Progress Note: Still with congested cough. No CP. Breathing feels about the same as yesterday. Intake & Output 09/28/16 09/29/16 09/30/16 10/01/16 23:59 23:59 23:59 23:59 Intake Total 200 150 800 300 Balance 200 150 800 300 Weight 224 lb 237 lb 6.4 oz 241 lb 8 oz Last Vital Signs Temp Pulse Resp BP Pulse Ox 97.8 F 75 22 144/56 92 L 10/01/16 06:00 10/01/16 06:00 10/01/16 06:00 10/01/16 06:00 09/30/16 00:43 Active Medications Acetaminophen (Tylenol -) 650 mg PO Q4H PRN PRN Reason: FEVER OR PAIN Albuterol Sulfate (Ventolin 0.083% Nebulizer Soln -) 1 amp NEB Q4H PRN PRN Reason: SHORT OF BREATH/WHEEZING Last Admin: 09/30/16 19:43 Dose: 1 amp Allopurinol (Zyloprim -) 100 mg PO DAILY [facility] Last Admin: 09/30/16 09:20 Dose: 100 mg Aspirin (Asa -) 81 mg PO Q2D@1000 [facility] Last Admin: 09/29/16 09:32 Dose: 81 mg Budesonide/Formoterol Fumarate (Symbicort 160/4.5mcg -) 2 puff IH BID [facility] Last Admin: 09/30/16 21:21 Dose: 2 puff Diltiazem HCl (Cardizem Cd -) 120 mg PO DAILY [facility] Last Admin: 09/30/16 09:19 Dose: 120 mg Docusate Sodium (Colace -) 100 mg PO BID [facility] Last Admin: 09/30/16 21:16 Dose: 100 mg Fentanyl (Duragesic 75mcg Patch -) 1 patch TD Q72H [facility] Last Admin: 09/29/16 09:33 Dose: 1 patch Furosemide (Lasix Injection -) 40 mg IVPUSH BID@0600,1400 [facility] Last Admin: 10/01/16 06:20 Dose: 40 mg Gemfibrozil (Lopid -) 600 mg PO BID [facility] Last Admin: 09/30/16 21:16 Dose: 600 mg Guaifenesin/Codeine Phosphate (Robitussin Ac -) 10 ml PO Q8H PRN PRN Reason: COUGH Hydromorphone HCl (Dilaudid Injection -) 2 mg IVPUSH Q6H PRN PRN Reason: PAIN Last Admin: 10/01/16 06:32 Dose: 2 mg Ceftriaxone Sodium (Rocephin 1gm Ivpb (Pre-Docked)) 50 mls @ 100 mls/hr IVPB DAILY [facility] Last Admin: 09/30/16 09:19 Dose: 100 mls/hr Azithromycin 250 mg/ Dextrose 250 mls @ 250 mls/hr IVPB DAILY [facility] Last Admin: 09/30/16 11:54 Dose: 250 mls/hr Insulin Aspart (Novolog Vial Sliding Scale -) 1 vial SQ ACHS [facility] PRN Reason: Protocol Last Admin: 10/01/16 06:21 Dose: 6 unit Insulin Aspart (Novolog Mix 70/30 Vial) 25 units SQ BIDAC [facility] Last Admin: 10/01/16 06:20 Dose: 25 units Lactulose (Cephulac (Oral Use)) 10 gm PO DAILY [facility] Last Admin: 09/30/16 09:19 Dose: 10 gm Losartan Potassium (Cozaar -) 50 mg PO DAILY [facility] Last Admin: 09/30/16 09:20 Dose: 50 mg Methylprednisolone Sodium Succinate (Solu-Medrol -) 40 mg IVPB Q8H-IV [facility] Last Admin: 10/01/16 01:25 Dose: 40 mg Metoclopramide HCl (Reglan -) 5 mg PO TIDAC [facility] Last Admin: 10/01/16 08:12 Dose: 5 mg Miscellaneous (Duragesic Patch Waste) 1 each TD PRN PRN Non-Formulary Medication (Naloxegol Oxalate [Movantik]) 25 mg PO DAILY [facility] Potassium Chloride (K-Dur -) 20 meq PO DAILY [facility] Last Admin: 09/30/16 09:20 Dose: 20 meq Ranitidine HCl (Zantac -) 300 mg PO DAILY [facility] Last Admin: 09/30/16 09:19 Dose: 300 mg Senna (Senna -) 2 tab PO HS PRN PRN Reason: CONSTIPATION Last Admin: 09/29/16 22:32 Dose: 2 tab Sitagliptin Phosphate (Januvia -) 25 mg PO DAILY@0700 [facility] Last Admin: 10/01/16 06:20 Dose: 25 mg Tamsulosin HCl (Flomax -) 0.4 mg PO BID [facility] Last Admin: 09/30/16 21:16 Dose: 0.4 mg Terazosin HCl (Hytrin -) 5 mg PO HS [facility] Last Admin: 09/30/16 21:16 Dose: 5 mg Tiotropium [place] (Spiriva -) 1 puff IH DAILY [facility] Last Admin: 09/30/16 09:22 Dose: 1 puff Zolpidem Tartrate (Ambien -) 5 mg PO HS PRN PRN Reason: INSOMNIA Last Admin: 09/29/16 22:30 Dose: 5 mg General: Mildly tachypneic at rest Cardiovascular: Yes: Regular Rate and Rhythm Respiratory: Yes: Scattered rhonchi, crackles at the bases Gastrointestinal: Yes: Normal Bowel Sounds, Soft Edema: Yes Edema: LLE: 2+, RLE: 2+ Labs: Laboratory Results - last 24 hr 09/30/16 09/30/16 09/30/16 11:54 17:28 20:30 WBC RBC Hgb Hct MCV MCHC RDW Plt Count MPV Neutrophils % Lymphocytes % Monocytes % Eosinophils % Basophils % Sodium Potassium Chloride Carbon Dioxide Anion Gap BUN Creatinine Creat Clearance w eGFR POC Glucometer 269 202 229 Random Glucose Calcium Total Bilirubin AST ALT Alkaline Phosphatase Total Protein Albumin 10/01/16 10/01/16 10/01/16 05:33 07:00 07:00 WBC 15.2 H RBC 3.35 L Hgb 10.2 L Hct 31.0 L MCV 92.6 MCHC 33.0 RDW 15.7 Plt Count 212 MPV 10.2 Neutrophils % 94.2 H Lymphocytes % 3.1 L D Monocytes % 2.6 L Eosinophils % 0.0 Basophils % 0.1 D Sodium 139 Potassium 4.6 Chloride 101 Carbon Dioxide 24 Anion Gap 14 BUN 93 H D Creatinine 2.8 H D Creat Clearance w eGFR 22.39 POC Glucometer 296 Random Glucose 282 H Calcium 8.9 Total Bilirubin 0.2 D AST 20 D ALT 15 Alkaline Phosphatase 49 Total Protein 7.1 Albumin 3.7 Problem List - Problems (1) COPD exacerbation Assessment/Plan: Code(s): J44.1 - CHRONIC OBSTRUCTIVE PULMONARY DISEASE W (ACUTE) EXACERBATION (2) CKD (chronic kidney disease) Assessment/Plan: Code(s): N18.9 - CHRONIC KIDNEY DISEASE, UNSPECIFIED Qualifiers: Chronic kidney disease stage: unspecified stage Qualified Code(s): N18.9 - Chronic kidney disease, unspecified (3) Diabetes mellitus, insulin dependent (IDDM), uncontrolled Assessment/Plan: Code(s): E10.65 - TYPE 1 DIABETES MELLITUS WITH HYPERGLYCEMIA Qualifiers: Diabetes mellitus complication status: without complication Qualified Code(s): E10.9 - Type 1 diabetes mellitus without complications (4) CHF (congestive heart failure) Assessment/Plan: Code(s): I50.9 - HEART FAILURE, UNSPECIFIED Qualifiers: Congestive heart failure type: diastolic (5) Back pain Assessment/Plan: Code(s): M54.9 - DORSALGIA, UNSPECIFIED PLAN: Symbicort BID Spiriva O2 as needed BD TX Medrol at current dose Lasix Short course of Zithromax No smoking Dr Amaral
[2016-10-01] MEDS ORDERED: PT OWN MED DRAWER 7, Y5N ONE (10:10)
[2016-10-01] MEDS: ASPIRIN 81 MG CHEWABLE TABLETS PO SCH (10:26)
[2016-10-01] MEDS: LACTULOSE 20 GM/30 ML UDC (FOR ORAL USE ONLY) PO SCH (10:26)
[2016-10-01] MEDS: LOSARTAN POTASSIUM 50 MG TABLET (FP) PO SCH (10:27)
[2016-10-01] MEDS: GEMFIBROZIL 600 MG TABLET (FP) PO SCH ×2 (10:27→22:28)
[2016-10-01] MEDS: DOCUSATE SODIUM 100 MG CAPSULE (FP) PO SCH ×2 (10:27→22:23)
[2016-10-01] MEDS: TAMSULOSIN HCL 0.4 MG CAP.ER.24H (FP) PO SCH ×2 (10:27→22:28)
[2016-10-01] MEDS: POTASSIUM CHLORIDE TABS 20 MEQ TABLET.ER (FP) PO SCH (10:27)
[2016-10-01] MEDS: ALLOPURINOL 100 MG TABLET (FP) PO SCH (10:28)
[2016-10-01] MEDS: TIOTROPIUM BROMIDE 18 MCG/INH (DEVICE W/ 30 CAPSULES) IH SCH (10:28)
[2016-10-01] MEDS: BUDESONIDE/FORMETEROL FUMARATE 160/4.5 mcg INHALER IH SCH ×2 (10:28→22:28)
[2016-10-01] MEDS: RANITIDINE HCL 150 MG TABLET (FP) PO SCH (10:28)
[2016-10-01] MEDS: ALBUTEROL SO4 0.083% IH SOL 2.5 MG/3 ML VIAL.NEB. NEB PRN ×2 (11:10→18:17)
[2016-10-01] MEDS ORDERED: INSULIN (NOVOLOG) ASPART 100 UNITS/ML 10ML VIAL ONE (11:31)
[2016-10-01] MEDS: AZITHROMYCIN IVPB 250 MG in DEXTROSE 5%-WATER - 250 ML IVPB SCH (11:40)
--- NOTE | 2016-10-01 12:48 | PN ---
Progress Note, Physician Chief Complaint: complaining of back and neck pain not happy with pain regimen - Current Medication List Current Medications: Active Medications Acetaminophen (Tylenol -) 650 mg PO Q4H PRN PRN Reason: FEVER OR PAIN Albuterol Sulfate (Ventolin 0.083% Nebulizer Soln -) 1 amp NEB Q4H PRN PRN Reason: SHORT OF BREATH/WHEEZING Last Admin: 10/01/16 11:10 Dose: 1 amp Albuterol Sulfate (Ventolin 0.083% Nebulizer Soln -) 1 amp NEB TIDR [facility] Allopurinol (Zyloprim -) 100 mg PO DAILY [facility] Last Admin: 10/01/16 10:28 Dose: 100 mg Aspirin (Asa -) 81 mg PO Q2D@1000 [facility] Last Admin: 10/01/16 10:26 Dose: 81 mg Budesonide/Formoterol Fumarate (Symbicort 160/4.5mcg -) 2 puff IH BID [facility] Last Admin: 10/01/16 10:28 Dose: 2 puff Diltiazem HCl (Cardizem Cd -) 120 mg PO DAILY [facility] Last Admin: 10/01/16 10:26 Dose: 120 mg Docusate Sodium (Colace -) 100 mg PO BID [facility] Last Admin: 10/01/16 10:27 Dose: 100 mg Fentanyl (Duragesic 75mcg Patch -) 1 patch TD Q72H [facility] Last Admin: 09/29/16 09:33 Dose: 1 patch Furosemide (Lasix Injection -) 40 mg IVPUSH BID@0600,1400 [facility] Last Admin: 10/01/16 06:20 Dose: 40 mg Gemfibrozil (Lopid -) 600 mg PO BID [facility] Last Admin: 10/01/16 10:27 Dose: 600 mg Guaifenesin/Codeine Phosphate (Robitussin Ac -) 10 ml PO Q8H PRN PRN Reason: COUGH Hydromorphone HCl (Dilaudid Injection -) 2 mg IVPUSH Q6H PRN PRN Reason: PAIN Last Admin: 10/01/16 12:34 Dose: 2 mg Azithromycin 250 mg/ Dextrose 250 mls @ 250 mls/hr IVPB DAILY [facility] Last Admin: 10/01/16 11:40 Dose: 250 mls/hr Insulin Aspart (Novolog Vial Sliding Scale -) 1 vial SQ ACHS [facility] PRN Reason: Protocol Last Admin: 10/01/16 11:40 Dose: Not Given Insulin Aspart (Novolog Mix 70/30 Vial) 25 units SQ BIDAC [facility] Last Admin: 10/01/16 06:20 Dose: 25 units Lactulose (Cephulac (Oral Use)) 10 gm PO DAILY [facility] Last Admin: 10/01/16 10:26 Dose: 10 gm Losartan Potassium (Cozaar -) 50 mg PO DAILY [facility] Last Admin: 10/01/16 10:27 Dose: 50 mg Methylprednisolone Sodium Succinate (Solu-Medrol -) 40 mg IVPB Q8H-IV [facility] Last Admin: 10/01/16 10:27 Dose: 40 mg Metoclopramide HCl (Reglan -) 5 mg PO TIDAC [facility] Last Admin: 10/01/16 11:41 Dose: 5 mg Miscellaneous (Duragesic Patch Waste) 1 each TD PRN PRN Non-Formulary Medication (Naloxegol Oxalate [Movantik]) 25 mg PO DAILY [facility] Potassium Chloride (K-Dur -) 20 meq PO DAILY [facility] Last Admin: 10/01/16 10:27 Dose: 20 meq Ranitidine HCl (Zantac -) 300 mg PO DAILY [facility] Last Admin: 10/01/16 10:28 Dose: 300 mg Senna (Senna -) 2 tab PO HS PRN PRN Reason: CONSTIPATION Last Admin: 09/29/16 22:32 Dose: 2 tab Sitagliptin Phosphate (Januvia -) 25 mg PO DAILY@0700 [facility] Last Admin: 10/01/16 06:20 Dose: 25 mg Tamsulosin HCl (Flomax -) 0.4 mg PO BID [facility] Last Admin: 10/01/16 10:27 Dose: 0.4 mg Terazosin HCl (Hytrin -) 5 mg PO HS [facility] Last Admin: 09/30/16 21:16 Dose: 5 mg Tiotropium [place] (Spiriva -) 1 puff IH DAILY [facility] Last Admin: 10/01/16 10:28 Dose: 1 puff Zolpidem Tartrate (Ambien -) 5 mg PO HS PRN PRN Reason: INSOMNIA Last Admin: 09/29/16 22:30 Dose: 5 mg - Objective Vital Signs: Vital Signs Temperature 98.4 F 10/01/16 10:05 Pulse Rate 86 10/01/16 11:09 Respiratory Rate 20 10/01/16 10:05 Blood Pressure 107/63 10/01/16 10:05 O2 Sat by Pulse Oximetry (%) 90 L 10/01/16 11:09 Labs: CBC, BMP 10/01/16 07:00 10/01/16 07:00
--- NOTE | 2016-10-01 12:55 | PN ---
Progress Note, Physician Chief Complaint: complaining of back and neck pain not happy with pain regimen - Current Medication List Current Medications: Active Medications Acetaminophen (Tylenol -) 650 mg PO Q4H PRN PRN Reason: FEVER OR PAIN Albuterol Sulfate (Ventolin 0.083% Nebulizer Soln -) 1 amp NEB Q4H PRN PRN Reason: SHORT OF BREATH/WHEEZING Last Admin: 10/01/16 11:10 Dose: 1 amp Albuterol Sulfate (Ventolin 0.083% Nebulizer Soln -) 1 amp NEB [facility] Allopurinol (Zyloprim -) 100 mg PO DAILY [facility] Last Admin: 10/01/16 10:28 Dose: 100 mg Aspirin (Asa -) 81 mg PO Q2D@1000 [facility] Last Admin: 10/01/16 10:26 Dose: 81 mg Budesonide/Formoterol Fumarate (Symbicort 160/4.5mcg -) 2 puff IH BID [facility] Last Admin: 10/01/16 10:28 Dose: 2 puff Diltiazem HCl (Cardizem Cd -) 120 mg PO DAILY [facility] Last Admin: 10/01/16 10:26 Dose: 120 mg Docusate Sodium (Colace -) 100 mg PO BID [facility] Last Admin: 10/01/16 10:27 Dose: 100 mg Fentanyl (Duragesic 75mcg Patch -) 1 patch TD Q72H [facility] Last Admin: 09/29/16 09:33 Dose: 1 patch Furosemide (Lasix Injection -) 40 mg IVPUSH BID@0600,1400 [facility] Last Admin: 10/01/16 06:20 Dose: 40 mg Gemfibrozil (Lopid -) 600 mg PO BID [facility] Last Admin: 10/01/16 10:27 Dose: 600 mg Guaifenesin/Codeine Phosphate (Robitussin Ac -) 10 ml PO Q8H PRN PRN Reason: COUGH Hydromorphone HCl (Dilaudid Injection -) 2 mg IVPUSH Q6H PRN PRN Reason: PAIN Last Admin: 10/01/16 12:34 Dose: 2 mg Azithromycin 250 mg/ Dextrose 250 mls @ 250 mls/hr IVPB DAILY [facility] Last Admin: 10/01/16 11:40 Dose: 250 mls/hr Insulin Aspart (Novolog Vial Sliding Scale -) 1 vial SQ ACHS [facility] PRN Reason: Protocol Last Admin: 10/01/16 11:40 Dose: Not Given Insulin Aspart (Novolog Mix 70/30 Vial) 25 units SQ BIDAC [facility] Last Admin: 10/01/16 06:20 Dose: 25 units Lactulose (Cephulac (Oral Use)) 10 gm PO DAILY [facility] Last Admin: 10/01/16 10:26 Dose: 10 gm Losartan Potassium (Cozaar -) 50 mg PO DAILY [facility] Last Admin: 10/01/16 10:27 Dose: 50 mg Methylprednisolone Sodium Succinate (Solu-Medrol -) 40 mg IVPB Q8H-IV [facility] Last Admin: 10/01/16 10:27 Dose: 40 mg Metoclopramide HCl (Reglan -) 5 mg PO TIDAC [facility] Last Admin: 10/01/16 11:41 Dose: 5 mg Miscellaneous (Duragesic Patch Waste) 1 each TD PRN PRN Non-Formulary Medication (Naloxegol Oxalate [Movantik]) 25 mg PO DAILY [facility] Potassium Chloride (K-Dur -) 20 meq PO DAILY [facility] Last Admin: 10/01/16 10:27 Dose: 20 meq Ranitidine HCl (Zantac -) 300 mg PO DAILY [facility] Last Admin: 10/01/16 10:28 Dose: 300 mg Senna (Senna -) 2 tab PO HS PRN PRN Reason: CONSTIPATION Last Admin: 09/29/16 22:32 Dose: 2 tab Sitagliptin Phosphate (Januvia -) 25 mg PO DAILY@0700 [facility] Last Admin: 10/01/16 06:20 Dose: 25 mg Tamsulosin HCl (Flomax -) 0.4 mg PO BID [facility] Last Admin: 10/01/16 10:27 Dose: 0.4 mg Terazosin HCl (Hytrin -) 5 mg PO HS [facility] Last Admin: 09/30/16 21:16 Dose: 5 mg Tiotropium [place] (Spiriva -) 1 puff IH DAILY [facility] Last Admin: 10/01/16 10:28 Dose: 1 puff Zolpidem Tartrate (Ambien -) 5 mg PO HS PRN PRN Reason: INSOMNIA Last Admin: 09/29/16 22:30 Dose: 5 mg - Objective Vital Signs: Vital Signs Temperature 98.4 F 10/01/16 10:05 Pulse Rate 86 10/01/16 11:09 Respiratory Rate 20 10/01/16 10:05 Blood Pressure 107/63 10/01/16 10:05 O2 Sat by Pulse Oximetry (%) 90 L 10/01/16 11:09 Constitutional: Yes: Anxious Neck: Yes: Trachea Midline Cardiovascular: Yes: Regular Rate and Rhythm, S1, S2 Respiratory: Yes: Diminished Gastrointestinal: Yes: Normal Bowel Sounds, Soft Edema: Yes Neurological: Yes: Alert, Oriented Labs: CBC, BMP 10/01/16 07:00 10/01/16 07:00 Problem List - Problems (1) COPD exacerbation Assessment/Plan: IV steroids pulm on board broncho dilators Code(s): J44.1 - CHRONIC OBSTRUCTIVE PULMONARY DISEASE W (ACUTE) EXACERBATION (2) Back pain Assessment/Plan: fentanyl patch pain meds Code(s): M54.9 - DORSALGIA, UNSPECIFIED (3) CKD (chronic kidney disease) Assessment/Plan: renal eval Code(s): N18.9 - CHRONIC KIDNEY DISEASE, UNSPECIFIED Qualifiers: Chronic kidney disease stage: unspecified stage Qualified Code(s): N18.9 - Chronic kidney disease, unspecified (4) CHF (congestive heart failure) Assessment/Plan: acute on chronic CHF iv lasix monitor ltytes Code(s): I50.9 - HEART FAILURE, UNSPECIFIED Qualifiers: Congestive heart failure type: diastolic (5) BPH (benign prostatic hyperplasia) Assessment/Plan: flomax and hytrin Code(s): N40.0 - BENIGN PROSTATIC HYPERPLASIA WITHOUT LOWER URINRY TRACT SYMP
[2016-10-01] MEDS: ALBUTEROL SO4 0.083% IH SOL 2.5 MG/3 ML VIAL.NEB. NEB SCH ×2 (13:25→22:51)
--- NOTE | 2016-10-01 14:31 | CONSULT ---
Consultation: REQUESTING PROVIDER: Dr Hill CONSULT REQUEST: We have been asked to medically evaluate this patient for (ckd ). HISTORY OF PRESENT ILLNESS: 71y M hx of CHF, CKD, HTN, HL, DM, COPD, back pain, bph, anemia, pancreatitis presents to 4 days of worsening cough/congestion. The pt denies any fevers/chills. STates the cough is intermittently productive of whitish sputum. Pt endorses chest pain when he is coughing significantly. No known sick contacts or travel. The pt went to his PMDs office yesterday who gave him steroids and augmentin, but sypmtoms worsened so he came to the ED. Pt states that his coughing was bad last night, he also feels orthopneic and noticed mild leg swelling this morning. Patient states that his breathing has improved and per patient his swelling in b /l lower leg has decreased since admission REVIEW OF SYSTEMS: CONSTITUTIONAL: Absent: fever, chills, diaphoresis, generalized weakness, malaise, loss of appetite, weight change HEENT: Absent: rhinorrhea, nasal congestion, throat pain, throat swelling, difficulty swallowing, mouth swelling, ear pain, eye pain, visual changes CARDIOVASCULAR: Absent: chest pain, syncope, palpitations, irregular heart rate, lightheadedness , peripheral edema RESPIRATORY: Absent: cough, shortness of breath, dyspnea with exertion, orthopnea, wheezing, stridor, hemoptysis GASTROINTESTINAL: Absent: abdominal pain, abdominal distension, nausea, vomiting, diarrhea, constipation, melena, hematochezia GENITOURINARY: Absent: dysuria, frequency, urgency, hesitancy, hematuria, flank pain, genital pain MUSCULOSKELETAL: Absent: myalgia, arthralgia, joint swelling, back pain, neck pain SKIN: Absent: rash, itching, pallor HEMATOLOGIC/IMMUNOLOGIC: Absent: easy bleeding, easy bruising, lymphadenopathy, frequent infections ENDOCRINE: Absent: unexplained weight gain, unexplained weight loss, heat intolerance, cold intolerance NEUROLOGIC: Absent: headache, focal weakness or paresthesias, dizziness, unsteady gait, seizure, mental status changes, bladder or bowel incontinence PSYCHIATRIC: Absent: anxiety, depression, suicidal or homicidal ideation, hallucinations. PHYSICAL EXAMINATION Vital Signs - 24 hr 09/30/16 10/01/16 10/01/16 22:00 02:00 06:00 Temperature 97.8 F 97.5 F L 97.8 F Pulse Rate 80 75 75 Respiratory 22 22 22 Rate Blood Pressure 156/75 143/59 144/56 O2 Sat by Pulse Oximetry (%) 10/01/16 10/01/16 10/01/16 09:00 10:05 11:09 Temperature 98.4 F Pulse Rate 86 86 Respiratory 20 Rate Blood Pressure 107/63 O2 Sat by Pulse 92 L 90 L Oximetry (%) 10/01/16 14:08 Temperature 98.4 F Pulse Rate 84 Respiratory 18 Rate Blood Pressure 116/70 O2 Sat by Pulse Oximetry (%) GENERAL: Awake, alert, and fully oriented, in no acute distress. HEAD: Normal with no signs of trauma. EYES: Pupils equal, round and reactive to light, EARS, NOSE, THROAT: Ears normal, nares patent, . NECK: Normal range of motion, supple without lymphadenopathy, LUNGS: Scattered rhonchi, crackles at the bases No accessory muscle use. HEART: Regular rate, s1s2 normal ABDOMEN: Soft, nontender, not distended, normoactive bowel sounds, no guarding, no rebound, LOWER EXTREMITIES: warm, well-perfused. peripheral edema 2+. Laboratory Results - last 24 hr 09/28/16 09/30/16 09/30/16 17:46 17:28 20:30 WBC RBC Hgb Hct MCV MCHC RDW Plt Count MPV Neutrophils % Lymphocytes % Monocytes % Eosinophils % Basophils % Sodium Potassium Chloride Carbon Dioxide Anion Gap BUN Creatinine Creat Clearance w eGFR POC Glucometer > 400 202 229 Random Glucose Calcium Total Bilirubin AST ALT Alkaline Phosphatase Total Protein Albumin 10/01/16 10/01/16 10/01/16 05:33 07:00 07:00 WBC 15.2 H RBC 3.35 L Hgb 10.2 L Hct 31.0 L MCV 92.6 MCHC 33.0 RDW 15.7 Plt Count 212 MPV 10.2 Neutrophils % 94.2 H Lymphocytes % 3.1 L D Monocytes % 2.6 L Eosinophils % 0.0 Basophils % 0.1 D Sodium 139 Potassium 4.6 Chloride 101 Carbon Dioxide 24 Anion Gap 14 BUN 93 H D Creatinine 2.8 H D Creat Clearance w eGFR 22.39 POC Glucometer 296 Random Glucose 282 H Calcium 8.9 Total Bilirubin 0.2 D AST 20 D ALT 15 Alkaline Phosphatase 49 Total Protein 7.1 Albumin 3.7 10/01/16 11:39 WBC RBC Hgb Hct MCV MCHC RDW Plt Count MPV Neutrophils % Lymphocytes % Monocytes % Eosinophils % Basophils % Sodium Potassium Chloride Carbon Dioxide Anion Gap BUN Creatinine Creat Clearance w eGFR POC Glucometer 154 Random Glucose Calcium Total Bilirubin AST ALT Alkaline Phosphatase Total Protein Albumin Active Medications Generic Name Dose Route Start Last Admin Trade Name Freq PRN Reason Stop Dose Admin Acetaminophen 650 mg 09/29/16 08:57 Tylenol - PO Q4H PRN FEVER OR PAIN Albuterol Sulfate 1 amp 09/28/16 16:35 10/01/16 11:10 Ventolin 0.083% Nebulizer Soln - NEB 1 amp Q4H PRN Administration SHORT OF BREATH/WHEEZING Albuterol Sulfate 1 amp 10/01/16 14:00 10/01/16 13:25 Ventolin 0.083% Nebulizer Soln - NEB 1 amp TIDR [facility] Administration Allopurinol 100 mg 09/29/16 10:00 10/01/16 10:28 Zyloprim - PO 100 mg DAILY [facility] Administration Aspirin 81 mg 09/29/16 10:00 10/01/16 10:26 Asa - PO 81 mg Q2D@1000 [facility] Administration Budesonide/Formoterol Fumarate 2 puff 09/28/16 22:00 10/01/16 10:28 Symbicort 160/4.5mcg - IH 2 puff BID [facility] Administration Diltiazem HCl 120 mg 09/29/16 10:00 10/01/16 10:26 Cardizem Cd - PO 120 mg DAILY [facility] Administration Docusate Sodium 100 mg 09/29/16 10:00 10/01/16 10:27 Colace - PO 100 mg BID [facility] Administration Fentanyl 1 patch 09/29/16 08:30 09/29/16 09:33 Duragesic 75mcg Patch - TD 1 patch Q72H [facility] Administration Furosemide 40 mg 09/30/16 14:00 10/01/16 13:35 Lasix Injection - IVPUSH 40 mg BID@0600,1400 [facility] Administration Gemfibrozil 600 mg 09/29/16 10:00 10/01/16 10:27 Lopid - PO 600 mg BID [facility] Administration Guaifenesin/Codeine Phosphate 10 ml 09/29/16 05:17 Robitussin Ac - PO Q8H PRN COUGH Hydromorphone HCl 2 mg 09/29/16 08:32 10/01/16 12:34 Dilaudid Injection - IVPUSH 2 mg Q6H PRN Administration PAIN Azithromycin 250 mg/ Dextrose 250 mls @ 250 mls/hr 09/29/16 10:00 10/01/16 11: 40 IVPB 250 mls/hr DAILY [facility] Administration Insulin Aspart 1 vial 09/29/16 23:15 10/01/16 11:40 Novolog Vial Sliding Scale - SQ Not Given ACHS [facility] Protocol Insulin Aspart 25 units 10/01/16 07:00 10/01/16 06:20 Novolog Mix 70/30 Vial SQ 25 units BIDAC [facility] Administration Lactulose 10 gm 09/29/16 10:00 10/01/16 10:26 Cephulac (Oral Use) PO 10 gm DAILY [facility] Administration Losartan Potassium 50 mg 09/29/16 10:00 10/01/16 10:27 Cozaar - PO 50 mg DAILY [facility] Administration Methylprednisolone Sodium Succinate 40 mg 09/30/16 18:00 10/01/16 10:27 Solu-Medrol - IVPB 40 mg Q8H-IV [facility] Administration Metoclopramide HCl 5 mg 09/29/16 11:00 10/01/16 11:41 Reglan - PO 5 mg TIDAC [facility] Administration Miscellaneous 1 each 09/29/16 09:01 Duragesic Patch Waste TD PRN PRN Non-Formulary Medication 25 mg 10/01/16 10:00 Naloxegol Oxalate [Movantik] PO DAILY [facility] Potassium Chloride 20 meq 09/29/16 10:00 10/01/16 10:27 K-Dur - PO 20 meq DAILY [facility] Administration Ranitidine HCl 300 mg 09/29/16 10:00 10/01/16 10:28 Zantac - PO 300 mg DAILY [facility] Administration Senna 2 tab 09/29/16 08:30 09/29/16 22:32 Senna - PO 2 tab HS PRN Administration CONSTIPATION Sitagliptin Phosphate 25 mg 09/29/16 07:00 10/01/16 06:20 Januvia - PO 25 mg DAILY@0700 [facility] Administration Tamsulosin HCl 0.4 mg 09/29/16 10:00 10/01/16 10:27 Flomax - PO 0.4 mg BID [facility] Administration Terazosin HCl 5 mg 09/29/16 22:00 09/30/16 21:16 Hytrin - PO 5 mg HS [facility] Administration Tiotropium [place] 1 puff 09/28/16 17:30 10/01/16 10:28 Spiriva - IH 1 puff DAILY [facility] Administration Zolpidem Tartrate 5 mg 09/29/16 22:00 09/29/16 22:30 Ambien - PO 5 mg HS PRN Administration INSOMNIA ASSESSMENT/PLAN: acute copd excerbration HTN DM CKD CHF LOW BACK PAIN H/O PANCREATITIS PLAN repeat bmp in morning follow Ua, urine electrolyte patient discharged in may 2016 with creatnine of 1.1. continue diuresis with lasix 40mg bid, weight decreased from 112 kg to 109 kg. In may 2016 weight was 100.6 monitor urine output daily weight keep legs elevated while sitting Dispo: We will continue to follow the patient. Thank you for this consultative opportunity. Visit type - Emergency Visit Emergency Visit: Yes ED Registration Date: 09/28/16 Care time: The patient presented to the Emergency Department on the above date and was hospitalized for further evaluation of their emergent condition. - New Patient This patient is new to me today: Yes Date on this admission: 10/01/16 - Critical Care Critical Care patient: No
[2016-10-01] MEDS ORDERED: INSULIN (NOVOLOG MIX 70/30) 100 UNITS/ML MDV SQ ONE ×2 (16:22→17:20)
--- NOTE | 2016-10-01 17:41 | PN ---
Teaching Attending Note Name of Resident: Walter Wang (Nephrology) ATTENDING PHYSICIAN STATEMENT I saw and evaluated the patient. I reviewed the resident's note and discussed the case with the resident. I agree with the resident's findings and plan as documented. Pt is a 71 year old male with pmhx of CKD, CHF, HTN, Chol, COPD, DM, anemia and chronic back pain who presents to the ER with increased shortness of breath and cough. I was called to evaluate him for worsening creatinine. He was put on lasix and feels that his lower extremity edema is improving. He denies dysuria or hematuria. pmhx ckd, htn, chf, chol, dm, copd back pain anemia pancreatitis bph NKDA, allergic to hot pepper social hx denies ros cough cardio s1s2 reg pulm scattered wheeze Gi soft, obese ext plus 2 edema neuro awake and alert skin neg rash Current Medications Generic Name Dose Route Start Last Admin Trade Name Freq PRN Reason Stop Dose Admin Acetaminophen 650 mg 09/29/16 08:57 Tylenol - PO Q4H PRN FEVER OR PAIN Albuterol Sulfate 1 amp 09/28/16 16:35 10/01/16 11:10 Ventolin 0.083% Nebulizer Soln - NEB 1 amp Q4H PRN Administration SHORT OF BREATH/WHEEZING Albuterol Sulfate 1 amp 10/01/16 14:00 10/01/16 13:25 Ventolin 0.083% Nebulizer Soln - NEB 1 amp TIDR [facility] Administration Allopurinol 100 mg 09/29/16 10:00 10/01/16 10:28 Zyloprim - PO 100 mg DAILY [facility] Administration Aspirin 81 mg 09/29/16 10:00 10/01/16 10:26 Asa - PO 81 mg Q2D@1000 [facility] Administration Budesonide/Formoterol Fumarate 2 puff 09/28/16 22:00 10/01/16 10:28 Symbicort 160/4.5mcg - IH 2 puff BID [facility] Administration Diltiazem HCl 120 mg 09/29/16 10:00 10/01/16 10:26 Cardizem Cd - PO 120 mg DAILY [facility] Administration Docusate Sodium 100 mg 09/29/16 10:00 10/01/16 10:27 Colace - PO 100 mg BID [facility] Administration Fentanyl 1 patch 09/29/16 08:30 09/29/16 09:33 Duragesic 75mcg Patch - TD 1 patch Q72H [facility] Administration Gemfibrozil 600 mg 09/29/16 10:00 10/01/16 10:27 Lopid - PO 600 mg BID [facility] Administration Guaifenesin/Codeine Phosphate 10 ml 09/29/16 05:17 Robitussin Ac - PO Q8H PRN COUGH Hydromorphone HCl 2 mg 09/29/16 08:32 10/01/16 12:34 Dilaudid Injection - IVPUSH 2 mg Q6H PRN Administration PAIN Azithromycin 250 mg/ Dextrose 250 mls @ 250 mls/hr 09/29/16 10:00 10/01/16 11: 40 IVPB 250 mls/hr DAILY [facility] Administration Insulin Aspart 1 vial 09/29/16 23:15 10/01/16 17:09 Novolog Vial Sliding Scale - SQ 6 unit ACHS [facility] Administration Protocol Insulin Aspart 25 units 10/01/16 07:00 10/01/16 17:10 Novolog Mix 70/30 Vial SQ 25 units BIDAC [facility] Administration Lactulose 10 gm 09/29/16 10:00 10/01/16 10:26 Cephulac (Oral Use) PO 10 gm DAILY [facility] Administration Losartan Potassium 50 mg 09/29/16 10:00 10/01/16 10:27 Cozaar - PO 50 mg DAILY [facility] Administration Methylprednisolone Sodium Succinate 40 mg 09/30/16 18:00 10/01/16 17:13 Solu-Medrol - IVPB 40 mg Q8H-IV [facility] Administration Metoclopramide HCl 5 mg 09/29/16 11:00 10/01/16 17:12 Reglan - PO 5 mg TIDAC [facility] Administration Miscellaneous 1 each 09/29/16 09:01 Duragesic Patch Waste TD PRN PRN Non-Formulary Medication 25 mg 10/01/16 10:00 Naloxegol Oxalate [Movantik] PO DAILY [facility] Potassium Chloride 20 meq 09/29/16 10:00 10/01/16 10:27 K-Dur - PO 20 meq DAILY [facility] Administration Ranitidine HCl 300 mg 09/29/16 10:00 10/01/16 10:28 Zantac - PO 300 mg DAILY [facility] Administration Senna 2 tab 09/29/16 08:30 09/29/16 22:32 Senna - PO 2 tab HS PRN Administration CONSTIPATION Sitagliptin Phosphate 25 mg 09/29/16 07:00 10/01/16 06:20 Januvia - PO 25 mg DAILY@0700 [facility] Administration Tamsulosin HCl 0.4 mg 09/29/16 10:00 10/01/16 10:27 Flomax - PO 0.4 mg BID [facility] Administration Terazosin HCl 5 mg 09/29/16 22:00 09/30/16 21:16 Hytrin - PO 5 mg HS [facility] Administration Tiotropium [place] 1 puff 09/28/16 17:30 10/01/16 10:28 Spiriva - IH 1 puff DAILY [facility] Administration Zolpidem Tartrate 5 mg 09/29/16 22:00 09/29/16 22:30 Ambien - PO 5 mg HS PRN Administration INSOMNIA Current Active Problems CKD (chronic kidney disease) (Acute) COPD exacerbation (Acute) Cough (Acute) Diabetes mellitus, insulin dependent (IDDM), uncontrolled (Acute) HTN (hypertension) (Acute) Hyperlipidemia LDL goal < 100 (Acute) Hypertriglyceridemia (Acute) Shortness of breath (Acute) Wheeze (Acute) Last Vital Signs Temp Pulse Resp BP Pulse Ox 98.4 F 84 18 116/70 90 L 10/01/16 14:08 10/01/16 14:08 10/01/16 14:08 10/01/16 14:08 10/01/16 11:09 Laboratory Tests 02/29/16 02/29/16 03/01/16 06:00 12:50 06:00 Sodium Potassium Chloride Carbon Dioxide Anion Gap BUN Creatinine 2.2 H D 2.0 H 1.9 H 03/04/16 03/08/16 03/09/16 06:30 07:00 11:00 Sodium Potassium Chloride Carbon Dioxide Anion Gap BUN Creatinine 2.0 H 1.7 H 1.5 H 03/10/16 03/11/16 09/28/16 06:30 06:30 12:20 Sodium Potassium Chloride Carbon Dioxide Anion Gap BUN Creatinine 1.6 H 1.6 H 2.1 H D 09/29/16 10/01/16 08:10 07:00 Sodium 139 Potassium 4.6 Chloride 101 Carbon Dioxide 24 Anion Gap 14 BUN 93 H D Creatinine 2.0 H 2.8 H D Impression 1. CKD 2. DM 3. HTN 4. CHF 5. COPD 6. fluid overload Plan - cont with diuretics - check labs daily - will order daily weights - last outpt creatinine was about 2.6, will confirm in am - will follow Dr Nathan
[2016-10-01 22:22] LABS: URINE APPEARANCE CLEAR; URINE BILIRUBIN NEGATIVE (NEGATIVE); URINE BLOOD NEGATIVE (NEGATIVE); URINE COLOR STRAW; URINE GLUCOSE (UA) NEGATIVE (NEGATIVE); URINE KETONE NEGATIVE (NEGATIVE); URINE LEUK ESTERASE NEGATIVE (NEGATIVE); URINE NITRITE NEGATIVE (NEGATIVE); URINE PROTEIN NEGATIVE (NEGATIVE); URINE UROBILINOGEN NEGATIVE E.U./dl (0.2-1.0)
[2016-10-01] MEDS: TERAZOSIN HCL 5 MG CAPSULE PO SCH (22:28)
[2016-10-02] MEDS: HYDROmorphone HCL CARPU-JECT 2 MG/1 ML DISP.SYRIN IVPUSH PRN ×4 (00:21→18:18)
[2016-10-02] MEDS: ZOLPIDEM TARTRATE 5 MG TABLET PO PRN (00:31)
[2016-10-02] MEDS: methylPREDNISolone NA SUCC 40 MG/1 ML VIAL IVPB SCH ×3 (01:44→17:20)
[2016-10-02] MEDS: ALBUTEROL SO4 0.083% IH SOL 2.5 MG/3 ML VIAL.NEB. NEB SCH ×3 (06:51→21:30)
[2016-10-02] MEDS: sitaGLIPtin PHOSPHATE 25 MG TABLET (FP) PO SCH (07:01)
[2016-10-02] MEDS: INSULIN (NOVOLOG MIX 70/30) 100 UNITS/ML MDV SQ SCH ×2 (07:03→17:08)
[2016-10-02] MEDS: INSULIN SLIDING SCALE (NOVOLOG) 1 VIAL SQ SCH ×4 (07:04→22:12)
[2016-10-02] MEDS: METOCLOPRAMIDE HCL 10 MG TABLET (FP) PO SCH ×3 (07:04→17:20)
[2016-10-02] MEDS ORDERED: INSULIN (NOVOLOG) ASPART 100 UNITS/ML 10ML VIAL ONE ×5 (07:11→21:31)
[2016-10-02 07:55] LABS: CALCIUM 8.8 mg/dL (8.5-10.1)
[2016-10-02] MEDS ORDERED: PT OWN MED DRAWER 7, Y5N ONE ×3 (09:26→14:34)
[2016-10-02] MEDS: fentaNYL 75mcg/hr PATCH.TD72 TD SCH (09:31)
[2016-10-02] MEDS: LACTULOSE 20 GM/30 ML UDC (FOR ORAL USE ONLY) PO SCH (09:32)
[2016-10-02] MEDS: FUROSEMIDE 40 MG/4 ML INJECTABLE VIAL IVPUSH SCH (09:33)
[2016-10-02] MEDS: LOSARTAN POTASSIUM 50 MG TABLET (FP) PO SCH (09:33)
[2016-10-02] MEDS: TAMSULOSIN HCL 0.4 MG CAP.ER.24H (FP) PO SCH ×2 (09:33→22:16)
[2016-10-02] MEDS: DOCUSATE SODIUM 100 MG CAPSULE (FP) PO SCH ×2 (09:33→22:14)
[2016-10-02] MEDS: TIOTROPIUM BROMIDE 18 MCG/INH (DEVICE W/ 30 CAPSULES) IH SCH (09:34)
[2016-10-02] MEDS: RANITIDINE HCL 150 MG TABLET (FP) PO SCH (09:34)
[2016-10-02] MEDS: GEMFIBROZIL 600 MG TABLET (FP) PO SCH ×2 (09:34→22:16)
[2016-10-02] MEDS: AZITHROMYCIN IVPB 250 MG in DEXTROSE 5%-WATER - 250 ML IVPB SCH (09:34)
[2016-10-02] MEDS: BUDESONIDE/FORMETEROL FUMARATE 160/4.5 mcg INHALER IH SCH ×2 (09:34→23:14)
[2016-10-02] MEDS: ALLOPURINOL 100 MG TABLET (FP) PO SCH (09:35)
[2016-10-02] MEDS: FENTANYL PATCH WASTE TD PRN (09:52)
--- NOTE | 2016-10-02 09:59 | PN ---
Progress Note (short form) - Note Progress Note: Drowsy but easily arousable. Still with congested cough. No CP. General: Mildly tachypneic at rest Cardiovascular: Yes: Regular Rate and Rhythm Respiratory: Yes: Scattered rhonchi, crackles at the bases, (+) Expiratory wheezing Gastrointestinal: Yes: Normal Bowel Sounds, Soft Edema: Yes Edema: LLE: 2+, RLE: 2+ Labs: Laboratory Results - last 24 hr 09/28/16 10/01/16 10/01/16 17:46 11:39 17:08 Sodium Potassium Chloride Carbon Dioxide Anion Gap BUN Creatinine POC Glucometer > 400 154 297 Random Glucose Calcium Urine Color Urine Appearance Urine pH Ur Specific [place] Urine Protein Urine Glucose (UA) Urine Ketones Urine Blood Urine Nitrite Urine Bilirubin Urine Urobilinogen Ur Leukocyte Esterase Ur Random Sodium Ur Random Potassium Ur Random Chloride 10/01/16 10/01/16 10/01/16 22:10 22:10 22:21 Sodium Potassium Chloride Carbon Dioxide Anion Gap BUN Creatinine POC Glucometer 255 Random Glucose Calcium Urine Color Straw Urine Appearance Clear Urine pH 5.0 Ur Specific [place] 1.011 Urine Protein Negative Urine Glucose (UA) Negative Urine Ketones Negative Urine Blood Negative Urine Nitrite Negative Urine Bilirubin Negative Urine Urobilinogen Negative Ur Leukocyte Esterase Negative Ur Random Sodium 51 Ur Random Potassium 27.8 Ur Random Chloride 69 10/02/16 10/02/16 06:15 06:57 Sodium 140 Potassium 5.6 H D Chloride 102 Carbon Dioxide 26 Anion Gap 12 BUN 104 H Creatinine 3.0 H POC Glucometer 268 Random Glucose 270 H Calcium 8.8 Urine Color Urine Appearance Urine pH Ur Specific [place] Urine Protein Urine Glucose (UA) Urine Ketones Urine Blood Urine Nitrite Urine Bilirubin Urine Urobilinogen Ur Leukocyte Esterase Ur Random Sodium Ur Random Potassium Ur Random Chloride Problem List - Problems (1) COPD exacerbation Assessment/Plan: Code(s): J44.1 - CHRONIC OBSTRUCTIVE PULMONARY DISEASE W (ACUTE) EXACERBATION (2) CKD (chronic kidney disease) Assessment/Plan: Code(s): N18.9 - CHRONIC KIDNEY DISEASE, UNSPECIFIED Qualifiers: Chronic kidney disease stage: unspecified stage Qualified Code(s): N18.9 - Chronic kidney disease, unspecified (3) Diabetes mellitus, insulin dependent (IDDM), uncontrolled Assessment/Plan: Code(s): E10.65 - TYPE 1 DIABETES MELLITUS WITH HYPERGLYCEMIA Qualifiers: Diabetes mellitus complication status: without complication Qualified Code(s): E10.9 - Type 1 diabetes mellitus without complications (4) CHF (congestive heart failure) Assessment/Plan: Code(s): I50.9 - HEART FAILURE, UNSPECIFIED Qualifiers: Congestive heart failure type: diastolic (5) Back pain Assessment/Plan: Code(s): M54.9 - DORSALGIA, UNSPECIFIED PLAN: Symbicort BID Spiriva O2 as needed BD TX Medrol at current dose Lasix Zithromax Add Daliresp No smoking Dr Amaral
--- NOTE | 2016-10-02 10:38 | PN ---
Progress Note, Physician Chief Complaint: patient says he is not better - Current Medication List Current Medications: Active Medications Acetaminophen (Tylenol -) 650 mg PO Q4H PRN PRN Reason: FEVER OR PAIN Albuterol Sulfate (Ventolin 0.083% Nebulizer Soln -) 1 amp NEB Q4H PRN PRN Reason: SHORT OF BREATH/WHEEZING Last Admin: 10/01/16 18:17 Dose: 1 amp Albuterol Sulfate (Ventolin 0.083% Nebulizer Soln -) 1 amp NEB [facility] Last Admin: 10/02/16 06:51 Dose: 1 amp Allopurinol (Zyloprim -) 100 mg PO DAILY [facility] Last Admin: 10/02/16 09:35 Dose: 100 mg Aspirin (Asa -) 81 mg PO Q2D@1000 [facility] Last Admin: 10/01/16 10:26 Dose: 81 mg Budesonide/Formoterol Fumarate (Symbicort 160/4.5mcg -) 2 puff IH BID [facility] Last Admin: 10/02/16 09:34 Dose: 2 puff Diltiazem HCl (Cardizem Cd -) 120 mg PO DAILY [facility] Last Admin: 10/02/16 09:32 Dose: 120 mg Docusate Sodium (Colace -) 100 mg PO BID [facility] Last Admin: 10/02/16 09:33 Dose: 100 mg Fentanyl (Duragesic 75mcg Patch -) 1 patch TD Q72H [facility] Last Admin: 10/02/16 09:31 Dose: 1 patch Furosemide (Lasix Injection -) 40 mg IVPUSH DAILY [facility] Last Admin: 10/02/16 09:33 Dose: 40 mg Gemfibrozil (Lopid -) 600 mg PO BID [facility] Last Admin: 10/02/16 09:34 Dose: 600 mg Hydromorphone HCl (Dilaudid Injection -) 2 mg IVPUSH Q6H PRN PRN Reason: PAIN Last Admin: 10/02/16 07:07 Dose: 2 mg Azithromycin 250 mg/ Dextrose 250 mls @ 250 mls/hr IVPB DAILY [facility] Last Admin: 10/02/16 09:34 Dose: 250 mls/hr Insulin Aspart (Novolog Vial Sliding Scale -) 1 vial SQ ACHS [facility] PRN Reason: Protocol Last Admin: 10/02/16 07:04 Dose: 6 unit Insulin Aspart (Novolog Mix 70/30 Vial) 25 units SQ BIDAC [facility] Last Admin: 10/02/16 07:03 Dose: 25 units Lactulose (Cephulac (Oral Use)) 10 gm PO DAILY [facility] Last Admin: 10/02/16 09:32 Dose: 10 gm Losartan Potassium (Cozaar -) 50 mg PO DAILY [facility] Last Admin: 10/02/16 09:33 Dose: 50 mg Methylprednisolone Sodium Succinate (Solu-Medrol -) 40 mg IVPB Q8H-IV [facility] Last Admin: 10/02/16 09:34 Dose: 40 mg Metoclopramide HCl (Reglan -) 5 mg PO TIDAC [facility] Last Admin: 10/02/16 07:04 Dose: 5 mg Miscellaneous (Duragesic Patch Waste) 1 each TD PRN PRN Last Admin: 10/02/16 09:52 Dose: 1 each Non-Formulary Medication (Naloxegol Oxalate [Movantik]) 25 mg PO DAILY [facility] Ranitidine HCl (Zantac -) 300 mg PO DAILY [facility] Last Admin: 10/02/16 09:34 Dose: 300 mg Roflumilast (Daliresp -) 500 mcg PO DAILY [facility] Senna (Senna -) 2 tab PO HS PRN PRN Reason: CONSTIPATION Last Admin: 09/29/16 22:32 Dose: 2 tab Sitagliptin Phosphate (Januvia -) 25 mg PO DAILY@0700 [facility] Last Admin: 10/02/16 07:01 Dose: 25 mg Tamsulosin HCl (Flomax -) 0.4 mg PO BID [facility] Last Admin: 10/02/16 09:33 Dose: 0.4 mg Terazosin HCl (Hytrin -) 5 mg PO HS [facility] Last Admin: 10/01/16 22:28 Dose: 5 mg Tiotropium [place] (Spiriva -) 1 puff IH DAILY [facility] Last Admin: 10/02/16 09:34 Dose: 1 puff Zolpidem Tartrate (Ambien -) 5 mg PO HS PRN PRN Reason: INSOMNIA Last Admin: 10/02/16 00:31 Dose: 5 mg - Objective Vital Signs: Vital Signs Temperature 97.4 F L 10/02/16 08:40 Pulse Rate 94 H 10/02/16 08:40 Respiratory Rate 20 10/02/16 08:40 Blood Pressure 134/87 10/02/16 08:40 O2 Sat by Pulse Oximetry (%) 90 L 10/01/16 21:00 Constitutional: Yes: Calm Cardiovascular: Yes: Regular Rate and Rhythm, S1, S2 Respiratory: Yes: Rhonchi Gastrointestinal: Yes: Normal Bowel Sounds, Soft Edema: Yes Neurological: Yes: Alert, Oriented Labs: CBC, BMP 10/01/16 07:00 10/02/16 06:15 Problem List - Problems (1) COPD exacerbation Assessment/Plan: IV steroids pulm on board broncho dilators darisep Code(s): J44.1 - CHRONIC OBSTRUCTIVE PULMONARY DISEASE W (ACUTE) EXACERBATION (2) Back pain Assessment/Plan: fentanyl patch pain meds Code(s): M54.9 - DORSALGIA, UNSPECIFIED (3) CKD (chronic kidney disease) Assessment/Plan: daily weight monitor lytes renal on board Code(s): N18.9 - CHRONIC KIDNEY DISEASE, UNSPECIFIED Qualifiers: Chronic kidney disease stage: unspecified stage Qualified Code(s): N18.9 - Chronic kidney disease, unspecified (4) CHF (congestive heart failure) Assessment/Plan: acute on chronic CHF iv lasix monitor ltytes Code(s): I50.9 - HEART FAILURE, UNSPECIFIED Qualifiers: Congestive heart failure type: diastolic (5) BPH (benign prostatic hyperplasia) Assessment/Plan: flomax and hytrin Code(s): N40.0 - BENIGN PROSTATIC HYPERPLASIA WITHOUT LOWER URINRY TRACT SYMP (6) Diabetes mellitus, insulin dependent (IDDM), uncontrolled Assessment/Plan: insulin Code(s): E10.65 - TYPE 1 DIABETES MELLITUS WITH HYPERGLYCEMIA Qualifiers: Diabetes mellitus complication status: without complication Qualified Code(s): E10.9 - Type 1 diabetes mellitus without complications
--- NOTE | 2016-10-02 10:42 | CONSULT ---
Consultation: REQUESTING PROVIDER: CONSULT REQUEST: We have been asked to medically evaluate this patient for (ckd) . HISTORY OF PRESENT ILLNESS: Patient states his breathing is same as yesterday. States swelling in legs has decreased since before. REVIEW OF SYSTEMS: CONSTITUTIONAL: Absent: fever, chills, diaphoresis, HEENT: Absent: rhinorrhea, nasal congestion, throat pain, throat swelling, difficulty swallowing, mouth swelling, ear pain, eye pain, visual changes CARDIOVASCULAR: Absent: palpitations, irregular heart rate, lightheadedness, RESPIRATORY: present : cough, shortness of breath, wheezing. GASTROINTESTINAL: Absent: abdominal pain, abdominal distension, nausea, vomiting, diarrhea, GENITOURINARY: Absent: dysuria, frequency, urgency, hesitancy, hematuria, flank pain, genital pain MUSCULOSKELETAL: Absent: myalgia, arthralgia, joint swelling, back pain, neck pain SKIN: Absent: rash, itching, pallor NEUROLOGIC: Absent: headache, focal weakness PSYCHIATRIC: Absent: anxiety, depression PHYSICAL EXAMINATION Vital Signs - 24 hr 10/01/16 10/01/16 10/01/16 11:09 14:08 17:25 Temperature 98.4 F 98.1 F Pulse Rate 86 84 88 Respiratory 18 20 Rate Blood Pressure 116/70 122/55 O2 Sat by Pulse 90 L Oximetry (%) 10/01/16 10/02/16 10/02/16 21:00 01:00 06:00 Temperature 98.2 F 98 F Pulse Rate 85 101 H Respiratory 20 20 20 Rate Blood Pressure 144/68 144/74 O2 Sat by Pulse 90 L Oximetry (%) 10/02/16 08:40 Temperature 97.4 F L Pulse Rate 94 H Respiratory 20 Rate Blood Pressure 134/87 O2 Sat by Pulse Oximetry (%) GENERAL: Awake, alert, and fully oriented, in no acute distress. HEAD: Normal with no signs of trauma. EYES: Pupils equal, round and reactive to light, EARS, NOSE, THROAT: Ears normal, nares patent, . NECK: Normal range of motion, supple without lymphadenopathy, LUNGS: Scattered rhonchi, crackles at the bases No accessory muscle use. wheezing on expiration HEART: Regular rate, s1s2 normal ABDOMEN: Soft, nontender, not distended, normoactive bowel sounds, no guarding, no rebound, LOWER EXTREMITIES: warm, well-perfused. peripheral edema 2+. Laboratory Results - last 24 hr 10/01/16 10/01/16 10/01/16 11:39 17:08 22:10 Sodium Potassium Chloride Carbon Dioxide Anion Gap BUN Creatinine POC Glucometer 154 297 Random Glucose Calcium Urine Color Straw Urine Appearance Clear Urine pH 5.0 Ur Specific [place] 1.011 Urine Protein Negative Urine Glucose (UA) Negative Urine Ketones Negative Urine Blood Negative Urine Nitrite Negative Urine Bilirubin Negative Urine Urobilinogen Negative Ur Leukocyte Esterase Negative Ur Random Sodium Ur Random Potassium Ur Random Chloride 10/01/16 10/01/16 10/02/16 22:10 22:21 06:15 Sodium 140 Potassium 5.6 H D Chloride 102 Carbon Dioxide 26 Anion Gap 12 BUN 104 H Creatinine 3.0 H POC Glucometer 255 Random Glucose 270 H Calcium 8.8 Urine Color Urine Appearance Urine pH Ur Specific [place] Urine Protein Urine Glucose (UA) Urine Ketones Urine Blood Urine Nitrite Urine Bilirubin Urine Urobilinogen Ur Leukocyte Esterase Ur Random Sodium 51 Ur Random Potassium 27.8 Ur Random Chloride 69 10/02/16 06:57 Sodium Potassium Chloride Carbon Dioxide Anion Gap BUN Creatinine POC Glucometer 268 Random Glucose Calcium Urine Color Urine Appearance Urine pH Ur Specific [place] Urine Protein Urine Glucose (UA) Urine Ketones Urine Blood Urine Nitrite Urine Bilirubin Urine Urobilinogen Ur Leukocyte Esterase Ur Random Sodium Ur Random Potassium Ur Random Chloride Active Medications Generic Name Dose Route Start Last Admin Trade Name Medardoq PRN Reason Stop Dose Admin Acetaminophen 650 mg 09/29/16 08:57 Tylenol - PO Q4H PRN FEVER OR PAIN Albuterol Sulfate 1 amp 09/28/16 16:35 10/01/16 18:17 Ventolin 0.083% Nebulizer Soln - NEB 1 amp Q4H PRN Administration SHORT OF BREATH/WHEEZING Albuterol Sulfate 1 amp 10/01/16 14:00 10/02/16 06:51 Ventolin 0.083% Nebulizer Soln - NEB 1 amp TIDR [facility] Administration Allopurinol 100 mg 09/29/16 10:00 10/02/16 09:35 Zyloprim - PO 100 mg DAILY [facility] Administration Aspirin 81 mg 09/29/16 10:00 10/01/16 10:26 Asa - PO 81 mg Q2D@1000 [facility] Administration Budesonide/Formoterol Fumarate 2 puff 09/28/16 22:00 10/02/16 09:34 Symbicort 160/4.5mcg - IH 2 puff BID [facility] Administration Diltiazem HCl 120 mg 09/29/16 10:00 10/02/16 09:32 Cardizem Cd - PO 120 mg DAILY [facility] Administration Docusate Sodium 100 mg 09/29/16 10:00 10/02/16 09:33 Colace - PO 100 mg BID [facility] Administration Fentanyl 1 patch 09/29/16 08:30 10/02/16 09:31 Duragesic 75mcg Patch - TD 1 patch Q72H [facility] Administration Furosemide 40 mg 10/02/16 10:00 10/02/16 09:33 Lasix Injection - IVPUSH 40 mg DAILY [facility] Administration Gemfibrozil 600 mg 09/29/16 10:00 10/02/16 09:34 Lopid - PO 600 mg BID [facility] Administration Hydromorphone HCl 2 mg 09/29/16 08:32 10/02/16 07:07 Dilaudid Injection - IVPUSH 2 mg Q6H PRN Administration PAIN Azithromycin 250 mg/ Dextrose 250 mls @ 250 mls/hr 09/29/16 10:00 10/02/16 09: 34 IVPB 250 mls/hr DAILY [facility] Administration Insulin Aspart 1 vial 09/29/16 23:15 10/02/16 07:04 Novolog Vial Sliding Scale - SQ 6 unit ACHS [facility] Administration Protocol Insulin Aspart 25 units 10/01/16 07:00 10/02/16 07:03 Novolog Mix 70/30 Vial SQ 25 units BIDAC [facility] Administration Lactulose 10 gm 09/29/16 10:00 10/02/16 09:32 Cephulac (Oral Use) PO 10 gm DAILY [facility] Administration Losartan Potassium 50 mg 09/29/16 10:00 10/02/16 09:33 Cozaar - PO 50 mg DAILY [facility] Administration Methylprednisolone Sodium Succinate 40 mg 09/30/16 18:00 10/02/16 09:34 Solu-Medrol - IVPB 40 mg Q8H-IV [facility] Administration Metoclopramide HCl 5 mg 09/29/16 11:00 10/02/16 07:04 Reglan - PO 5 mg TIDAC [facility] Administration Miscellaneous 1 each 09/29/16 09:01 10/02/16 09:52 Duragesic Patch Waste TD 1 each PRN PRN Administration Non-Formulary Medication 25 mg 10/01/16 10:00 Naloxegol Oxalate [Movantik] PO DAILY [facility] Ranitidine HCl 300 mg 09/29/16 10:00 10/02/16 09:34 Zantac - PO 300 mg DAILY [facility] Administration Roflumilast 500 mcg 10/02/16 10:50 Daliresp - PO DAILY [facility] Senna 2 tab 09/29/16 08:30 09/29/16 22:32 Senna - PO 2 tab HS PRN Administration CONSTIPATION Sitagliptin Phosphate 25 mg 09/29/16 07:00 10/02/16 07:01 Januvia - PO 25 mg DAILY@0700 [facility] Administration Tamsulosin HCl 0.4 mg 09/29/16 10:00 10/02/16 09:33 Flomax - PO 0.4 mg BID [facility] Administration Terazosin HCl 5 mg 09/29/16 22:00 10/01/16 22:28 Hytrin - PO 5 mg HS [facility] Administration Tiotropium [place] 1 puff 09/28/16 17:30 10/02/16 09:34 Spiriva - IH 1 puff DAILY [facility] Administration Zolpidem Tartrate 5 mg 09/29/16 22:00 10/02/16 00:31 Ambien - PO 5 mg HS PRN Administration INSOMNIA ASSESSMENT/PLAN: impression copd excerbration HTN DM celia on ckd CHF LOW BACK PAIN hyperkalemia H/O PANCREATITIS PLAN repeat labs in morning ua and urine electrolytes reviewed creatinine continue to increase 3.0. patient previous creatinine as outpatient was 1.7 continue diuresis with lasix 40mg bid, weight decreased from 112 kg to 108.59 kg. In may 2016 weight was 100.6 stop k dur, due to hyperkalemia follow renal ultrasound monitor urine output daily weight keep legs elevated while sitting Dispo: We will continue to follow the patient. Thank you for this consultative opportunity. Visit type - Emergency Visit Emergency Visit: Yes ED Registration Date: 09/28/16 Care time: The patient presented to the Emergency Department on the above date and was hospitalized for further evaluation of their emergent condition. - New Patient This patient is new to me today: No - Critical Care Critical Care patient: No
[2016-10-02] MEDS: ROFLUMILAST 500 MCG TABLET PO SCH (12:26)
--- NOTE | 2016-10-02 15:21 | PN ---
Teaching Attending Note Name of Resident: Walter Wang (Nephrology) Current Medications Generic Name Dose Route Start Last Admin Trade Name Freq PRN Reason Stop Dose Admin Acetaminophen 650 mg 09/29/16 08:57 Tylenol - PO Q4H PRN FEVER OR PAIN Albuterol Sulfate 1 amp 09/28/16 16:35 10/01/16 18:17 Ventolin 0.083% Nebulizer Soln - NEB 1 amp Q4H PRN Administration SHORT OF BREATH/WHEEZING Albuterol Sulfate 1 amp 10/01/16 14:00 10/02/16 14:00 Ventolin 0.083% Nebulizer Soln - NEB 1 amp TIDR [facility] Administration Allopurinol 100 mg 09/29/16 10:00 10/02/16 09:35 Zyloprim - PO 100 mg DAILY [facility] Administration Aspirin 81 mg 09/29/16 10:00 10/01/16 10:26 Asa - PO 81 mg Q2D@1000 [facility] Administration Budesonide/Formoterol Fumarate 2 puff 09/28/16 22:00 10/02/16 09:34 Symbicort 160/4.5mcg - IH 2 puff BID [facility] Administration Diltiazem HCl 120 mg 09/29/16 10:00 10/02/16 09:32 Cardizem Cd - PO 120 mg DAILY [facility] Administration Docusate Sodium 100 mg 09/29/16 10:00 10/02/16 09:33 Colace - PO 100 mg BID [facility] Administration Fentanyl 1 patch 09/29/16 08:30 10/02/16 09:31 Duragesic 75mcg Patch - TD 1 patch Q72H [facility] Administration Furosemide 40 mg 10/02/16 10:00 10/02/16 09:33 Lasix Injection - IVPUSH 40 mg DAILY [facility] Administration Gemfibrozil 600 mg 09/29/16 10:00 10/02/16 09:34 Lopid - PO 600 mg BID [facility] Administration Hydromorphone HCl 2 mg 09/29/16 08:32 10/02/16 12:34 Dilaudid Injection - IVPUSH 2 mg Q6H PRN Administration PAIN Azithromycin 250 mg/ Dextrose 250 mls @ 250 mls/hr 09/29/16 10:00 10/02/16 09: 34 IVPB 250 mls/hr DAILY [facility] Administration Insulin Aspart 1 vial 09/29/16 23:15 10/02/16 12:25 Novolog Vial Sliding Scale - SQ 4 unit ACHS [facility] Administration Protocol Insulin Aspart 25 units 10/01/16 07:00 10/02/16 07:03 Novolog Mix 70/30 Vial SQ 25 units BIDAC [facility] Administration Lactulose 10 gm 09/29/16 10:00 10/02/16 09:32 Cephulac (Oral Use) PO 10 gm DAILY [facility] Administration Losartan Potassium 50 mg 09/29/16 10:00 10/02/16 09:33 Cozaar - PO 50 mg DAILY [facility] Administration Methylprednisolone Sodium Succinate 40 mg 09/30/16 18:00 10/02/16 09:34 Solu-Medrol - IVPB 40 mg Q8H-IV [facility] Administration Metoclopramide HCl 5 mg 09/29/16 11:00 10/02/16 12:26 Reglan - PO 5 mg TIDAC [facility] Administration Miscellaneous 1 each 09/29/16 09:01 10/02/16 09:52 Duragesic Patch Waste TD 1 each PRN PRN Administration Non-Formulary Medication 25 mg 10/01/16 10:00 Naloxegol Oxalate [Movantik] PO DAILY [facility] Ranitidine HCl 300 mg 09/29/16 10:00 10/02/16 09:34 Zantac - PO 300 mg DAILY [facility] Administration Roflumilast 500 mcg 10/02/16 10:50 10/02/16 12:26 Daliresp - PO 500 mcg DAILY [facility] Administration Senna 2 tab 09/29/16 08:30 09/29/16 22:32 Senna - PO 2 tab HS PRN Administration CONSTIPATION Sitagliptin Phosphate 25 mg 09/29/16 07:00 10/02/16 07:01 Januvia - PO 25 mg DAILY@0700 [facility] Administration Tamsulosin HCl 0.4 mg 09/29/16 10:00 10/02/16 09:33 Flomax - PO 0.4 mg BID [facility] Administration Terazosin HCl 5 mg 09/29/16 22:00 10/01/16 22:28 Hytrin - PO 5 mg HS [facility] Administration Tiotropium [place] 1 puff 09/28/16 17:30 10/02/16 09:34 Spiriva - IH 1 puff DAILY [facility] Administration Zolpidem Tartrate 5 mg 09/29/16 22:00 10/02/16 00:31 Ambien - PO 5 mg HS PRN Administration INSOMNIA cardio s1s2 reg pulm clear GI soft, obse ext edema neuro awake Impression 1. CKD 2. DM 3. HTN 4. CHF 5. COPD 6. fluid overload Plan - hold potassium supplements - will decrease dose of diuretics - check renal ultrasound - repeat labs in am - will hold losartan and restart it when more stable - avoid hypotension Dr Nathan
[2016-10-02] MEDS ORDERED: INSULIN (NOVOLOG MIX 70/30) 100 UNITS/ML MDV SQ ONE ×2 (16:42→17:15)
[2016-10-02] MEDS: TERAZOSIN HCL 5 MG CAPSULE PO SCH (22:16)
[2016-10-02] MEDS: guaiFENesin/CODEINE 5 ML UNIT-DOSE CUPS PO PRN (22:17)
[2016-10-03] MEDS: HYDROmorphone HCL CARPU-JECT 2 MG/1 ML DISP.SYRIN IVPUSH PRN ×4 (00:19→22:44)
[2016-10-03] MEDS: ZOLPIDEM TARTRATE 5 MG TABLET PO PRN (00:33)
[2016-10-03] MEDS: methylPREDNISolone NA SUCC 40 MG/1 ML VIAL IVPB SCH ×3 (02:00→17:55)
[2016-10-03] MEDS: sitaGLIPtin PHOSPHATE 25 MG TABLET (FP) PO SCH (06:14)
[2016-10-03] MEDS: INSULIN (NOVOLOG MIX 70/30) 100 UNITS/ML MDV SQ SCH ×2 (06:15→17:55)
[2016-10-03] MEDS: METOCLOPRAMIDE HCL 10 MG TABLET (FP) PO SCH ×3 (06:17→17:53)
[2016-10-03] MEDS: INSULIN SLIDING SCALE (NOVOLOG) 1 VIAL SQ SCH ×4 (06:17→22:55)
[2016-10-03] MEDS: ALBUTEROL SO4 0.083% IH SOL 2.5 MG/3 ML VIAL.NEB. NEB SCH ×3 (06:47→21:50)
--- NOTE | 2016-10-03 08:59 | PN ---
Progress Note, Physician History of Present Illness: feels better - Current Medication List Current Medications: Active Medications Acetaminophen (Tylenol -) 650 mg PO Q4H PRN PRN Reason: FEVER OR PAIN Albuterol Sulfate (Ventolin 0.083% Nebulizer Soln -) 1 amp NEB Q4H PRN PRN Reason: SHORT OF BREATH/WHEEZING Last Admin: 10/01/16 18:17 Dose: 1 amp Albuterol Sulfate (Ventolin 0.083% Nebulizer Soln -) 1 amp NEB TIDR [facility] Last Admin: 10/03/16 06:47 Dose: 1 amp Allopurinol (Zyloprim -) 100 mg PO DAILY [facility] Last Admin: 10/02/16 09:35 Dose: 100 mg Aspirin (Asa -) 81 mg PO Q2D@1000 [facility] Last Admin: 10/01/16 10:26 Dose: 81 mg Budesonide/Formoterol Fumarate (Symbicort 160/4.5mcg -) 2 puff IH BID [facility] Last Admin: 10/02/16 23:14 Dose: 2 puff Diltiazem HCl (Cardizem Cd -) 120 mg PO DAILY [facility] Last Admin: 10/02/16 09:32 Dose: 120 mg Docusate Sodium (Colace -) 100 mg PO BID [facility] Last Admin: 10/02/16 22:14 Dose: 100 mg Fentanyl (Duragesic 75mcg Patch -) 1 patch TD Q72H [facility] Last Admin: 10/02/16 09:31 Dose: 1 patch Furosemide (Lasix Injection -) 40 mg IVPUSH DAILY [facility] Last Admin: 10/02/16 09:33 Dose: 40 mg Gemfibrozil (Lopid -) 600 mg PO BID [facility] Last Admin: 10/02/16 22:16 Dose: 600 mg Guaifenesin/Codeine Phosphate (Robitussin Ac -) 10 ml PO Q8H PRN PRN Reason: COUGH Last Admin: 10/02/16 22:17 Dose: 10 ml Hydromorphone HCl (Dilaudid Injection -) 2 mg IVPUSH Q6H PRN PRN Reason: PAIN Last Admin: 10/03/16 06:42 Dose: 2 mg Azithromycin 250 mg/ Dextrose 250 mls @ 250 mls/hr IVPB DAILY [facility] Last Admin: 10/02/16 09:34 Dose: 250 mls/hr Insulin Aspart (Novolog Vial Sliding Scale -) 1 vial SQ ACHS [facility] PRN Reason: Protocol Last Admin: 10/03/16 06:17 Dose: 4 unit Insulin Aspart (Novolog Mix 70/30 Vial) 25 units SQ BIDAC [facility] Last Admin: 10/03/16 06:15 Dose: 25 units Lactulose (Cephulac (Oral Use)) 10 gm PO DAILY [facility] Last Admin: 10/02/16 09:32 Dose: 10 gm Methylprednisolone Sodium Succinate (Solu-Medrol -) 40 mg IVPB Q8H-IV [facility] Last Admin: 10/03/16 02:00 Dose: 40 mg Metoclopramide HCl (Reglan -) 5 mg PO TIDAC [facility] Last Admin: 10/03/16 06:17 Dose: 5 mg Miscellaneous (Duragesic Patch Waste) 1 each TD PRN PRN Last Admin: 10/02/16 09:52 Dose: 1 each Non-Formulary Medication (Naloxegol Oxalate [Movantik]) 25 mg PO DAILY [facility] Ranitidine HCl (Zantac -) 300 mg PO DAILY [facility] Last Admin: 10/02/16 09:34 Dose: 300 mg Roflumilast (Daliresp -) 500 mcg PO DAILY [facility] Last Admin: 10/02/16 12:26 Dose: 500 mcg Senna (Senna -) 2 tab PO HS PRN PRN Reason: CONSTIPATION Last Admin: 09/29/16 22:32 Dose: 2 tab Sitagliptin Phosphate (Januvia -) 25 mg PO DAILY@0700 [facility] Last Admin: 10/03/16 06:14 Dose: 25 mg Tamsulosin HCl (Flomax -) 0.4 mg PO BID [facility] Last Admin: 10/02/16 22:16 Dose: 0.4 mg Terazosin HCl (Hytrin -) 5 mg PO HS [facility] Last Admin: 10/02/16 22:16 Dose: 5 mg Tiotropium [place] (Spiriva -) 1 puff IH DAILY [facility] Last Admin: 10/02/16 09:34 Dose: 1 puff Zolpidem Tartrate (Ambien -) 5 mg PO HS PRN PRN Reason: INSOMNIA Last Admin: 10/03/16 00:33 Dose: 5 mg - Objective Vital Signs: Vital Signs Temperature 98 F 10/03/16 06:00 Pulse Rate 100 H 10/03/16 06:00 Respiratory Rate 20 10/03/16 06:00 Blood Pressure 153/80 10/03/16 06:00 O2 Sat by Pulse Oximetry (%) 92 L 10/02/16 21:00 Cardiovascular: Yes: Murmur, S1, S2 Respiratory: Yes: Rhonchi Gastrointestinal: Yes: Normal Bowel Sounds, Soft Edema: Yes Labs: CBC, BMP 10/01/16 07:00 Problem List - Problems (1) COPD exacerbation Assessment/Plan: IV STEROIDS PER PULM IV ABX NEBS INCENTIVE SPIROMETRY Code(s): J44.1 - CHRONIC OBSTRUCTIVE PULMONARY DISEASE W (ACUTE) EXACERBATION (2) CKD (chronic kidney disease) Assessment/Plan: MONITOR ON DIURETICS Code(s): N18.9 - CHRONIC KIDNEY DISEASE, UNSPECIFIED Qualifiers: Chronic kidney disease stage: unspecified stage Qualified Code(s): N18.9 - Chronic kidney disease, unspecified (3) Diabetes mellitus, insulin dependent (IDDM), uncontrolled Assessment/Plan: BGM ENDO Code(s): E10.65 - TYPE 1 DIABETES MELLITUS WITH HYPERGLYCEMIA Qualifiers: Diabetes mellitus complication status: without complication Qualified Code(s): E10.9 - Type 1 diabetes mellitus without complications (4) CHF (congestive heart failure) Assessment/Plan: IV LASIX BID MONITOR Code(s): I50.9 - HEART FAILURE, UNSPECIFIED Qualifiers: Congestive heart failure type: diastolic (5) Back pain Assessment/Plan: CHRONICALLY ON PAIN MEDS DILUADID PRN Code(s): M54.9 - DORSALGIA, UNSPECIFIED
[2016-10-03] MEDS ORDERED: PT OWN MED DRAWER 7, Y5N ONE ×3 (09:04→22:43)
[2016-10-03 09:29] LABS: CALCIUM 8.7 mg/dL (8.5-10.1); CREATININE 2.7 mg/dL (0.7-1.3)
[2016-10-03] MEDS: TAMSULOSIN HCL 0.4 MG CAP.ER.24H (FP) PO SCH ×2 (10:44→22:40)
[2016-10-03] MEDS: GEMFIBROZIL 600 MG TABLET (FP) PO SCH ×2 (10:44→22:40)
[2016-10-03] MEDS: DOCUSATE SODIUM 100 MG CAPSULE (FP) PO SCH ×2 (10:44→22:40)
[2016-10-03] MEDS: ALLOPURINOL 100 MG TABLET (FP) PO SCH (10:44)
[2016-10-03] MEDS: RANITIDINE HCL 150 MG TABLET (FP) PO SCH (10:44)
[2016-10-03] MEDS: LACTULOSE 20 GM/30 ML UDC (FOR ORAL USE ONLY) PO SCH (10:44)
[2016-10-03] MEDS: FUROSEMIDE 40 MG/4 ML INJECTABLE VIAL IVPUSH SCH (10:45)
--- NOTE | 2016-10-03 10:45 | CONSULT ---
Consultation: REQUESTING PROVIDER: CONSULT REQUEST: We have been asked to medically evaluate this patient for (celia on ckd ). HISTORY OF PRESENT ILLNESS: states breathing is slightly better than yesterday. Also states that swelling in legs is decreasing REVIEW OF SYSTEMS: CONSTITUTIONAL: Absent: fever, chills, diaphoresis, HEENT: Absent: rhinorrhea, nasal congestion, throat pain, throat swelling, difficulty swallowing, mouth swelling, ear pain, eye pain, visual changes CARDIOVASCULAR: Absent: palpitations, irregular heart rate, lightheadedness, RESPIRATORY: present : cough, shortness of breath, wheezing. GASTROINTESTINAL: Absent: abdominal pain, abdominal distension, nausea, vomiting, diarrhea, GENITOURINARY: Absent: dysuria, frequency, urgency, hesitancy, hematuria, flank pain, genital pain MUSCULOSKELETAL: Absent: myalgia, arthralgia, joint swelling, back pain, neck pain SKIN: Absent: rash, itching, pallor NEUROLOGIC: Absent: headache, focal weakness PSYCHIATRIC: Absent: anxiety, depression PHYSICAL EXAMINATION Vital Signs - 24 hr 10/02/16 10/02/16 10/03/16 17:00 21:00 01:00 Temperature 98 F 98.4 F Pulse Rate 103 H 99 H Respiratory 24 24 20 Rate Blood Pressure 128/58 140/77 O2 Sat by Pulse 92 L Oximetry (%) 10/03/16 06:00 Temperature 98 F Pulse Rate 100 H Respiratory 20 Rate Blood Pressure 153/80 O2 Sat by Pulse Oximetry (%) GENERAL: Awake, alert, and fully oriented, in no acute distress. HEAD: Normal with no signs of trauma. EYES: Pupils equal, round and reactive to light, EARS, NOSE, THROAT: Ears normal, nares patent, . NECK: Normal range of motion, supple without lymphadenopathy, LUNGS: Scattered rhonchi, crackles at the bases No accessory muscle use. wheezing on expiration HEART: Regular rate, s1s2 normal ABDOMEN: Soft, nontender, not distended, normoactive bowel sounds, no guarding, no rebound, LOWER EXTREMITIES: warm, well-perfused. peripheral edema 2+ Laboratory Results - last 24 hr 10/02/16 10/02/16 10/02/16 12:24 16:59 22:04 Sodium Potassium Chloride Carbon Dioxide Anion Gap BUN Creatinine POC Glucometer 189 270 160 Random Glucose Calcium 10/03/16 10/03/16 05:50 06:15 Sodium 144 Potassium 4.9 Chloride 103 Carbon Dioxide 27 Anion Gap 14 BUN 101 H Creatinine 2.7 H POC Glucometer 232 Random Glucose 204 H D Calcium 8.7 Active Medications Generic Name Dose Route Start Last Admin Trade Name Freq PRN Reason Stop Dose Admin Acetaminophen 650 mg 09/29/16 08:57 Tylenol - PO Q4H PRN FEVER OR PAIN Albuterol Sulfate 1 amp 09/28/16 16:35 10/01/16 18:17 Ventolin 0.083% Nebulizer Soln - NEB 1 amp Q4H PRN Administration SHORT OF BREATH/WHEEZING Albuterol Sulfate 1 amp 10/01/16 14:00 10/03/16 06:47 Ventolin 0.083% Nebulizer Soln - NEB 1 amp TIDR JOSE LUIS Administration Allopurinol 100 mg 09/29/16 10:00 10/02/16 09:35 Zyloprim - PO 100 mg DAILY JOSE LUIS Administration Aspirin 81 mg 09/29/16 10:00 10/01/16 10:26 Asa - PO 81 mg Q2D@1000 JOSE LUIS Administration Budesonide/Formoterol Fumarate 2 puff 09/28/16 22:00 10/02/16 23:14 Symbicort 160/4.5mcg - IH 2 puff BID JOSE LUIS Administration Diltiazem HCl 120 mg 09/29/16 10:00 10/02/16 09:32 Cardizem Cd - PO 120 mg DAILY JOSE LUIS Administration Docusate Sodium 100 mg 09/29/16 10:00 10/02/16 22:14 Colace - PO 100 mg BID JOSE LUIS Administration Fentanyl 1 patch 09/29/16 08:30 10/02/16 09:31 Duragesic 75mcg Patch - TD 1 patch Q72H JOSE LUIS Administration Furosemide 40 mg 10/02/16 10:00 10/02/16 09:33 Lasix Injection - IVPUSH 40 mg DAILY JOSE LUIS Administration Gemfibrozil 600 mg 09/29/16 10:00 10/02/16 22:16 Lopid - PO 600 mg BID JOSE LUIS Administration Guaifenesin/Codeine Phosphate 10 ml 10/02/16 15:26 10/02/16 22:17 Robitussin Ac - PO 10 ml Q8H PRN Administration COUGH Hydromorphone HCl 2 mg 09/29/16 08:32 10/03/16 06:42 Dilaudid Injection - IVPUSH 2 mg Q6H PRN Administration PAIN Azithromycin 250 mg/ Dextrose 250 mls @ 250 mls/hr 09/29/16 10:00 10/02/16 09: 34 IVPB 250 mls/hr DAILY JOSE LUIS Administration Insulin Aspart 1 vial 09/29/16 23:15 10/03/16 06:17 Novolog Vial Sliding Scale - SQ 4 unit ACHS JOSE LUIS Administration Protocol Insulin Aspart 25 units 10/01/16 07:00 10/03/16 06:15 Novolog Mix 70/30 Vial SQ 25 units BIDAC JOSE LUIS Administration Lactulose 10 gm 09/29/16 10:00 10/02/16 09:32 Cephulac (Oral Use) PO 10 gm DAILY JOSE LUIS Administration Methylprednisolone Sodium Succinate 40 mg 09/30/16 18:00 10/03/16 02:00 Solu-Medrol - IVPB 40 mg Q8H-IV JOSE LUIS Administration Metoclopramide HCl 5 mg 09/29/16 11:00 10/03/16 06:17 Reglan - PO 5 mg TIDAC JOSE LUIS Administration Miscellaneous 1 each 09/29/16 09:01 10/02/16 09:52 Duragesic Patch Waste TD 1 each PRN PRN Administration Non-Formulary Medication 25 mg 10/01/16 10:00 Naloxegol Oxalate [Movantik] PO DAILY JOSE LUIS Ranitidine HCl 300 mg 09/29/16 10:00 10/02/16 09:34 Zantac - PO 300 mg DAILY JOSE LUIS Administration Roflumilast 500 mcg 10/02/16 10:50 10/02/16 12:26 Daliresp - PO 500 mcg DAILY JOSE LUIS Administration Senna 2 tab 09/29/16 08:30 09/29/16 22:32 Senna - PO 2 tab HS PRN Administration CONSTIPATION Sitagliptin Phosphate 25 mg 09/29/16 07:00 10/03/16 06:14 Januvia - PO 25 mg DAILY@0700 JOSE LUIS Administration Tamsulosin HCl 0.4 mg 09/29/16 10:00 10/02/16 22:16 Flomax - PO 0.4 mg BID JOSE LUIS Administration Terazosin HCl 5 mg 09/29/16 22:00 10/02/16 22:16 Hytrin - PO 5 mg HS JOSE LUIS Administration Tiotropium [place] 1 puff 09/28/16 17:30 10/02/16 09:34 Spiriva - IH 1 puff DAILY JOSE LUIS Administration Zolpidem Tartrate 5 mg 09/29/16 22:00 10/03/16 00:33 Ambien - PO 5 mg HS PRN Administration INSOMNIA ASSESSMENT/PLAN: impression copd excerbration HTN DM celia on ckd CHF LOW BACK PAIN hyperkalemia H/O PANCREATITIS PLAN repeat labs in morning creatinine decreased to 2.7 continue with lasix 40 mg iv daily continue to hold potassium supplement continue to hold losartan renal ultrasound pending monitor urine output daily weight keep legs elevated while sitting Dispo: We will continue to follow the patient. Thank you for this consultative opportunity. Visit type - Emergency Visit Emergency Visit: Yes ED Registration Date: 09/28/16 Care time: The patient presented to the Emergency Department on the above date and was hospitalized for further evaluation of their emergent condition. - New Patient This patient is new to me today: No - Critical Care Critical Care patient: No
[2016-10-03] MEDS: ALBUTEROL SO4 0.083% IH SOL 2.5 MG/3 ML VIAL.NEB. NEB PRN (11:00)
[2016-10-03] MEDS: AZITHROMYCIN IVPB 250 MG in DEXTROSE 5%-WATER - 250 ML IVPB SCH (11:06)
[2016-10-03] MEDS: TIOTROPIUM BROMIDE 18 MCG/INH (DEVICE W/ 30 CAPSULES) IH SCH (11:07)
[2016-10-03] MEDS: BUDESONIDE/FORMETEROL FUMARATE 160/4.5 mcg INHALER IH SCH ×2 (11:07→22:55)
[2016-10-03] MEDS: ROFLUMILAST 500 MCG TABLET PO SCH (11:07)
[2016-10-03] MEDS: ASPIRIN 81 MG CHEWABLE TABLETS PO SCH (11:07)
--- NOTE | 2016-10-03 13:12 | PN ---
Teaching Attending Note Name of Resident: Walter Wang (Nephrology) ATTENDING PHYSICIAN STATEMENT I saw and evaluated the patient. I reviewed the resident's note and discussed the case with the resident. I agree with the resident's findings and plan as documented. Current Medications Generic Name Dose Route Start Last Admin Trade Name Freq PRN Reason Stop Dose Admin Acetaminophen 650 mg 09/29/16 08:57 Tylenol - PO Q4H PRN FEVER OR PAIN Albuterol Sulfate 1 amp 09/28/16 16:35 10/03/16 11:00 Ventolin 0.083% Nebulizer Soln - NEB 1 amp Q4H PRN Administration SHORT OF BREATH/WHEEZING Albuterol Sulfate 1 amp 10/01/16 14:00 10/03/16 06:47 Ventolin 0.083% Nebulizer Soln - NEB 1 amp TIDR JOSE LUIS Administration Allopurinol 100 mg 09/29/16 10:00 10/03/16 10:44 Zyloprim - PO 100 mg DAILY JOSE LUIS Administration Aspirin 81 mg 09/29/16 10:00 10/03/16 11:07 Asa - PO 81 mg Q2D@1000 JOSE LUIS Administration Budesonide/Formoterol Fumarate 2 puff 09/28/16 22:00 10/03/16 11:07 Symbicort 160/4.5mcg - IH 2 puff BID JOSE LUIS Administration Diltiazem HCl 120 mg 09/29/16 10:00 10/03/16 10:44 Cardizem Cd - PO 120 mg DAILY JOSE LUIS Administration Docusate Sodium 100 mg 09/29/16 10:00 10/03/16 10:44 Colace - PO 100 mg BID JOSE LUIS Administration Fentanyl 1 patch 09/29/16 08:30 10/02/16 09:31 Duragesic 75mcg Patch - TD 1 patch Q72H JOSE LUIS Administration Furosemide 40 mg 10/02/16 10:00 10/03/16 10:45 Lasix Injection - IVPUSH 40 mg DAILY JOSE LUIS Administration Gemfibrozil 600 mg 09/29/16 10:00 10/03/16 10:44 Lopid - PO 600 mg BID JOSE LUIS Administration Guaifenesin/Codeine Phosphate 10 ml 10/02/16 15:26 10/02/16 22:17 Robitussin Ac - PO 10 ml Q8H PRN Administration COUGH Hydromorphone HCl 2 mg 09/29/16 08:32 10/03/16 06:42 Dilaudid Injection - IVPUSH 2 mg Q6H PRN Administration PAIN Azithromycin 250 mg/ Dextrose 250 mls @ 250 mls/hr 09/29/16 10:00 10/03/16 11: 06 IVPB 250 mls/hr DAILY JOSE LUIS Administration Insulin Aspart 1 vial 09/29/16 23:15 10/03/16 11:25 Novolog Vial Sliding Scale - SQ Not Given ACHS [facility] Protocol Insulin Aspart 25 units 10/01/16 07:00 10/03/16 06:15 Novolog Mix 70/30 Vial SQ 25 units BIDAC JOSE LUIS Administration Lactulose 10 gm 09/29/16 10:00 10/03/16 10:44 Cephulac (Oral Use) PO 10 gm DAILY JOSE LUIS Administration Methylprednisolone Sodium Succinate 40 mg 09/30/16 18:00 10/03/16 10:44 Solu-Medrol - IVPB 40 mg Q8H-IV JOSE LUIS Administration Metoclopramide HCl 5 mg 09/29/16 11:00 10/03/16 11:06 Reglan - PO 5 mg TIDAC JOSE LUIS Administration Miscellaneous 1 each 09/29/16 09:01 10/02/16 09:52 Duragesic Patch Waste TD 1 each PRN PRN Administration Non-Formulary Medication 25 mg 10/01/16 10:00 Naloxegol Oxalate [Movantik] PO DAILY JOSE LUIS Ranitidine HCl 300 mg 09/29/16 10:00 10/03/16 10:44 Zantac - PO 300 mg DAILY JOSE LUIS Administration Roflumilast 500 mcg 10/02/16 10:50 10/03/16 11:07 Daliresp - PO 500 mcg DAILY JOSE LUIS Administration Senna 2 tab 09/29/16 08:30 09/29/16 22:32 Senna - PO 2 tab HS PRN Administration CONSTIPATION Sitagliptin Phosphate 25 mg 09/29/16 07:00 10/03/16 06:14 Januvia - PO 25 mg DAILY@0700 JOSE LUIS Administration Tamsulosin HCl 0.4 mg 09/29/16 10:00 10/03/16 10:44 Flomax - PO 0.4 mg BID JOSE LUIS Administration Terazosin HCl 5 mg 09/29/16 22:00 10/02/16 22:16 Hytrin - PO 5 mg HS JOSE LUIS Administration Tiotropium [place] 1 puff 09/28/16 17:30 10/03/16 11:07 Spiriva - IH 1 puff DAILY JOSE LUIS Administration Zolpidem Tartrate 5 mg 09/29/16 22:00 10/03/16 00:33 Ambien - PO 5 mg HS PRN Administration INSOMNIA cardio s1s2 reg pulm clear GI soft, obse ext edema neuro awake Impression 1. CKD 2. DM 3. HTN 4. CHF 5. COPD 6. 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
[2016-10-03] MEDS ORDERED: SODIUM CHLORIDE NASAL SPRAY 44 ML BOTTLE NS PRN (14:40)
--- NOTE | 2016-10-03 14:40 | PN ---
Progress Note (short form) - Note Progress Note: PULMONARY Breathing slightly improved. +cough and wheezing. Leg swelling improving. Last Vital Signs Temp Pulse Resp BP Pulse Ox 98.3 F 106 H 16 160/84 92 L 10/03/16 14:09 10/03/16 14:09 10/03/16 14:09 10/03/16 14:09 10/02/16 21:00 Gen: mildly tachypneic at rest Heart: RRR Lung: scattered rhonchi Abd: soft, nontender Ext: + edema CBC, BMP 10/01/16 07:00 10/03/16 06:15 Active Medications Acetaminophen (Tylenol -) 650 mg PO Q4H PRN PRN Reason: FEVER OR PAIN Albuterol Sulfate (Ventolin 0.083% Nebulizer Soln -) 1 amp NEB Q4H PRN PRN Reason: SHORT OF BREATH/WHEEZING Last Admin: 10/03/16 11:00 Dose: 1 amp Albuterol Sulfate (Ventolin 0.083% Nebulizer Soln -) 1 amp NEB TIDR [facility] Last Admin: 10/03/16 06:47 Dose: 1 amp Allopurinol (Zyloprim -) 100 mg PO DAILY [facility] Last Admin: 10/03/16 10:44 Dose: 100 mg Aspirin (Asa -) 81 mg PO Q2D@1000 [facility] Last Admin: 10/03/16 11:07 Dose: 81 mg Budesonide/Formoterol Fumarate (Symbicort 160/4.5mcg -) 2 puff IH BID [facility] Last Admin: 10/03/16 11:07 Dose: 2 puff Diltiazem HCl (Cardizem Cd -) 120 mg PO DAILY [facility] Last Admin: 10/03/16 10:44 Dose: 120 mg Docusate Sodium (Colace -) 100 mg PO BID [facility] Last Admin: 10/03/16 10:44 Dose: 100 mg Fentanyl (Duragesic 75mcg Patch -) 1 patch TD Q72H [facility] Last Admin: 10/02/16 09:31 Dose: 1 patch Furosemide (Lasix Injection -) 40 mg IVPUSH DAILY [facility] Last Admin: 10/03/16 10:45 Dose: 40 mg Gemfibrozil (Lopid -) 600 mg PO BID [facility] Last Admin: 10/03/16 10:44 Dose: 600 mg Guaifenesin/Codeine Phosphate (Robitussin Ac -) 10 ml PO Q8H PRN PRN Reason: COUGH Last Admin: 10/02/16 22:17 Dose: 10 ml Hydromorphone HCl (Dilaudid Injection -) 2 mg IVPUSH Q6H PRN PRN Reason: PAIN Last Admin: 10/03/16 06:42 Dose: 2 mg Azithromycin 250 mg/ Dextrose 250 mls @ 250 mls/hr IVPB DAILY [facility] Last Admin: 10/03/16 11:06 Dose: 250 mls/hr Insulin Aspart (Novolog Vial Sliding Scale -) 1 vial SQ ACHS JOSE LUIS PRN Reason: Protocol Last Admin: 10/03/16 11:25 Dose: Not Given Insulin Aspart (Novolog Mix 70/30 Vial) 25 units SQ BIDAC [facility] Last Admin: 10/03/16 06:15 Dose: 25 units Lactulose (Cephulac (Oral Use)) 10 gm PO DAILY [facility] Last Admin: 10/03/16 10:44 Dose: 10 gm Methylprednisolone Sodium Succinate (Solu-Medrol -) 40 mg IVPB Q8H-IV [facility] Last Admin: 10/03/16 10:44 Dose: 40 mg Metoclopramide HCl (Reglan -) 5 mg PO TIDAC [facility] Last Admin: 10/03/16 11:06 Dose: 5 mg Miscellaneous (Duragesic Patch Waste) 1 each TD PRN PRN Last Admin: 10/02/16 09:52 Dose: 1 each Non-Formulary Medication (Naloxegol Oxalate [Movantik]) 25 mg PO DAILY [facility] Ranitidine HCl (Zantac -) 300 mg PO DAILY [facility] Last Admin: 10/03/16 10:44 Dose: 300 mg Roflumilast (Daliresp -) 500 mcg PO DAILY [facility] Last Admin: 10/03/16 11:07 Dose: 500 mcg Senna (Senna -) 2 tab PO HS PRN PRN Reason: CONSTIPATION Last Admin: 09/29/16 22:32 Dose: 2 tab Sitagliptin Phosphate (Januvia -) 25 mg PO DAILY@0700 [facility] Last Admin: 10/03/16 06:14 Dose: 25 mg Tamsulosin HCl (Flomax -) 0.4 mg PO BID [facility] Last Admin: 10/03/16 10:44 Dose: 0.4 mg Terazosin HCl (Hytrin -) 5 mg PO HS [facility] Last Admin: 10/02/16 22:16 Dose: 5 mg Tiotropium [place] (Spiriva -) 1 puff IH DAILY [facility] Last Admin: 10/03/16 11:07 Dose: 1 puff Zolpidem Tartrate (Ambien -) 5 mg PO HS PRN PRN Reason: INSOMNIA Last Admin: 10/03/16 00:33 Dose: 5 mg A/P Acute COPD Exacerbation Acute on Chronic Renal Failure Acute on Chronic LV Diastolic Heart Failure Volume Overload HTN DM - continue lasix - monitor urine output, creatinine - continue medrol at current dose - inhaled bronchodilators - O2 to keep SpO2 >90% - DVT prophylaxis - will start nasal sprays and humidify O2 as pt complaining of nasal congestion
[2016-10-03] MEDS ORDERED: INSULIN (NOVOLOG) ASPART 100 UNITS/ML 10ML VIAL ONE (19:38)
[2016-10-03] MEDS: TERAZOSIN HCL 5 MG CAPSULE PO SCH (22:43)
[2016-10-04] MEDS: ZOLPIDEM TARTRATE 5 MG TABLET PO PRN ×2 (00:09→23:51)
[2016-10-04] MEDS: guaiFENesin/CODEINE 5 ML UNIT-DOSE CUPS PO PRN ×2 (00:10→23:51)
[2016-10-04] MEDS: methylPREDNISolone NA SUCC 40 MG/1 ML VIAL IVPB SCH ×3 (02:10→21:56)
[2016-10-04] MEDS: INSULIN SLIDING SCALE (NOVOLOG) 1 VIAL SQ SCH ×4 (06:40→21:56)
[2016-10-04] MEDS: METOCLOPRAMIDE HCL 10 MG TABLET (FP) PO SCH ×3 (06:42→18:23)
[2016-10-04] MEDS: INSULIN (NOVOLOG MIX 70/30) 100 UNITS/ML MDV SQ SCH ×2 (06:42→18:24)
[2016-10-04] MEDS: sitaGLIPtin PHOSPHATE 25 MG TABLET (FP) PO SCH (06:45)
[2016-10-04] MEDS: ALBUTEROL SO4 0.083% IH SOL 2.5 MG/3 ML VIAL.NEB. NEB SCH ×3 (06:55→22:37)
[2016-10-04 07:54] LABS: MCH 30.4 pg (25.7-33.7); MCHC 32.9 g/dl (32.0-35.9); MEAN CELL VOLUME 92.4 fl (80-96); PLATELET COUNT 204 K/MM3 (134-434); WHITE BLOOD COUNT 12.7 K/mm3 (4.0-10.0)
[2016-10-04] MEDS ORDERED: PT OWN MED DRAWER 7, Y5N ONE ×3 (08:06→20:03)
[2016-10-04] MEDS: HYDROmorphone HCL CARPU-JECT 2 MG/1 ML DISP.SYRIN IVPUSH PRN (08:25)
[2016-10-04 08:34] LABS: CALCIUM 9.1 mg/dL (8.5-10.1)
[2016-10-04 08:35] LABS: CREATININE 2.3 mg/dL (0.7-1.3)
--- NOTE | 2016-10-04 08:55 | PN ---
Progress Note (short form) - Note Progress Note: Drowsy but easily arousable. Breathing feels about the same. Still with congested cough. No CP. CXR: Bibasilar plate like atelectasis Intake & Output 10/01/16 10/02/16 10/03/16 10/04/16 23:59 23:59 23:59 23:59 Intake Total 1050 1350 500 200 Balance 1050 1350 500 200 Weight 239 lb 6.4 oz 236 lb 11.2 oz 236 lb 1.6 oz Last Vital Signs Temp Pulse Resp BP Pulse Ox 98.4 F 96 H 20 189/92 92 L 10/04/16 06:00 10/04/16 06:00 10/04/16 06:00 10/04/16 06:00 10/02/16 21:00 Active Medications Acetaminophen (Tylenol -) 650 mg PO Q4H PRN PRN Reason: FEVER OR PAIN Albuterol Sulfate (Ventolin 0.083% Nebulizer Soln -) 1 amp NEB Q4H PRN PRN Reason: SHORT OF BREATH/WHEEZING Last Admin: 10/03/16 11:00 Dose: 1 amp Albuterol Sulfate (Ventolin 0.083% Nebulizer Soln -) 1 amp NEB TIDR [facility] Last Admin: 10/04/16 06:55 Dose: 1 amp Allopurinol (Zyloprim -) 100 mg PO DAILY [facility] Last Admin: 10/03/16 10:44 Dose: 100 mg Aspirin (Asa -) 81 mg PO Q2D@1000 [facility] Last Admin: 10/03/16 11:07 Dose: 81 mg Budesonide/Formoterol Fumarate (Symbicort 160/4.5mcg -) 2 puff IH BID [facility] Last Admin: 10/03/16 22:55 Dose: 2 puff Diltiazem HCl (Cardizem Cd -) 120 mg PO DAILY [facility] Last Admin: 10/03/16 10:44 Dose: 120 mg Docusate Sodium (Colace -) 100 mg PO BID [facility] Last Admin: 10/03/16 22:40 Dose: 100 mg Fentanyl (Duragesic 75mcg Patch -) 1 patch TD Q72H [facility] Last Admin: 10/02/16 09:31 Dose: 1 patch Furosemide (Lasix Injection -) 40 mg IVPUSH DAILY [facility] Last Admin: 10/03/16 10:45 Dose: 40 mg Gemfibrozil (Lopid -) 600 mg PO BID [facility] Last Admin: 10/03/16 22:40 Dose: 600 mg Guaifenesin/Codeine Phosphate (Robitussin Ac -) 10 ml PO Q8H PRN PRN Reason: COUGH Last Admin: 10/04/16 00:10 Dose: 10 ml Hydromorphone HCl (Dilaudid Injection -) 2 mg IVPUSH Q6H PRN PRN Reason: PAIN Last Admin: 10/04/16 08:25 Dose: 2 mg Azithromycin 250 mg/ Dextrose 250 mls @ 250 mls/hr IVPB DAILY [facility] Last Admin: 10/03/16 11:06 Dose: 250 mls/hr Insulin Aspart (Novolog Vial Sliding Scale -) 1 vial SQ ACHS JOSE LUIS PRN Reason: Protocol Last Admin: 10/04/16 06:40 Dose: Not Given Insulin Aspart (Novolog Mix 70/30 Vial) 25 units SQ BIDAC [facility] Last Admin: 10/04/16 06:42 Dose: 25 units Lactulose (Cephulac (Oral Use)) 10 gm PO DAILY [facility] Last Admin: 10/03/16 10:44 Dose: 10 gm Methylprednisolone Sodium Succinate (Solu-Medrol -) 40 mg IVPB Q8H-IV [facility] Last Admin: 10/04/16 02:10 Dose: 40 mg Metoclopramide HCl (Reglan -) 5 mg PO TIDAC [facility] Last Admin: 10/04/16 06:42 Dose: 5 mg Miscellaneous (Duragesic Patch Waste) 1 each TD PRN PRN Last Admin: 10/02/16 09:52 Dose: 1 each Non-Formulary Medication (Naloxegol Oxalate [Movantik]) 25 mg PO DAILY [facility] Ranitidine HCl (Zantac -) 300 mg PO DAILY [facility] Last Admin: 10/03/16 10:44 Dose: 300 mg Roflumilast (Daliresp -) 500 mcg PO DAILY [facility] Last Admin: 10/03/16 11:07 Dose: 500 mcg Senna (Senna -) 2 tab PO HS PRN PRN Reason: CONSTIPATION Last Admin: 09/29/16 22:32 Dose: 2 tab Sitagliptin Phosphate (Januvia -) 25 mg PO DAILY@0700 [facility] Last Admin: 10/04/16 06:45 Dose: 25 mg Sodium Chloride ([place]al [place] -) 2 spray NS BID PRN PRN Reason: NASAL CONGESTION Tamsulosin HCl (Flomax -) 0.4 mg PO BID [facility] Last Admin: 10/03/16 22:40 Dose: 0.4 mg Terazosin HCl (Hytrin -) 5 mg PO HS [facility] Last Admin: 10/03/16 22:43 Dose: 5 mg Tiotropium [place] (Spiriva -) 1 puff IH DAILY [facility] Last Admin: 10/03/16 11:07 Dose: 1 puff Zolpidem Tartrate (Ambien -) 5 mg PO HS PRN PRN Reason: INSOMNIA Last Admin: 10/04/16 00:09 Dose: 5 mg General: Mildly tachypneic at rest Cardiovascular: Yes: Regular Rate and Rhythm Respiratory: Yes: Scattered rhonchi, Minimal expiratory wheezing Gastrointestinal: Yes: Normal Bowel Sounds, Soft Edema: Yes Edema: LLE: 2+, RLE: 2+ Labs: Laboratory Results - last 24 hr 10/03/16 10/03/16 10/03/16 06:15 11:24 17:44 WBC RBC Hgb Hct MCV MCHC RDW Plt Count MPV Neutrophils % Lymphocytes % Sodium 144 Potassium 4.9 Chloride 103 Carbon Dioxide 27 Anion Gap 14 BUN 101 H Creatinine 2.7 H POC Glucometer 132 241 Random Glucose 204 H D Calcium 8.7 10/03/16 10/04/16 10/04/16 21:14 05:30 06:20 WBC 12.7 H RBC 3.46 L Hgb 10.5 L Hct 31.9 L MCV 92.4 MCHC 32.9 RDW 16.0 H Plt Count 204 MPV 10.0 Neutrophils % Y Lymphocytes % Y Sodium Potassium Chloride Carbon Dioxide Anion Gap BUN Creatinine POC Glucometer 155 167 Random Glucose Calcium 10/04/16 06:20 WBC RBC Hgb Hct MCV MCHC RDW Plt Count MPV Neutrophils % Lymphocytes % Sodium 143 Potassium 4.6 Chloride 103 Carbon Dioxide 27 Anion Gap 13 BUN 92 H Creatinine 2.3 H POC Glucometer Random Glucose 209 H Calcium 9.1 Problem List - Problems (1) COPD exacerbation Assessment/Plan: Code(s): J44.1 - CHRONIC OBSTRUCTIVE PULMONARY DISEASE W (ACUTE) EXACERBATION (2) CKD (chronic kidney disease) Assessment/Plan: Code(s): N18.9 - CHRONIC KIDNEY DISEASE, UNSPECIFIED Qualifiers: Chronic kidney disease stage: unspecified stage Qualified Code(s): N18.9 - Chronic kidney disease, unspecified (3) Diabetes mellitus, insulin dependent (IDDM), uncontrolled Assessment/Plan: Code(s): E10.65 - TYPE 1 DIABETES MELLITUS WITH HYPERGLYCEMIA Qualifiers: Diabetes mellitus complication status: without complication Qualified Code(s): E10.9 - Type 1 diabetes mellitus without complications (4) CHF (congestive heart failure) Assessment/Plan: Code(s): I50.9 - HEART FAILURE, UNSPECIFIED Qualifiers: Congestive heart failure type: diastolic (5) Back pain Assessment/Plan: Code(s): M54.9 - DORSALGIA, UNSPECIFIED PLAN: Symbicort BID Spiriva O2 as needed BD [place] Medrol taper to BID Lasix Zithromax Nasal spray No smoking Dr Amaral
[2016-10-04] MEDS: ALLOPURINOL 100 MG TABLET (FP) PO SCH (09:17)
[2016-10-04] MEDS: DOCUSATE SODIUM 100 MG CAPSULE (FP) PO SCH ×2 (09:17→21:57)
[2016-10-04] MEDS: AZITHROMYCIN IVPB 250 MG in DEXTROSE 5%-WATER - 250 ML IVPB SCH (09:17)
[2016-10-04] MEDS: GEMFIBROZIL 600 MG TABLET (FP) PO SCH ×2 (09:18→21:56)
[2016-10-04] MEDS: RANITIDINE HCL 150 MG TABLET (FP) PO SCH (09:18)
[2016-10-04] MEDS: TAMSULOSIN HCL 0.4 MG CAP.ER.24H (FP) PO SCH ×2 (09:18→21:57)
[2016-10-04] MEDS: LACTULOSE 20 GM/30 ML UDC (FOR ORAL USE ONLY) PO SCH (09:18)
[2016-10-04] MEDS: FUROSEMIDE 40 MG/4 ML INJECTABLE VIAL IVPUSH SCH (09:19)
[2016-10-04] MEDS: BUDESONIDE/FORMETEROL FUMARATE 160/4.5 mcg INHALER IH SCH ×2 (09:20→21:58)
[2016-10-04] MEDS: TIOTROPIUM BROMIDE 18 MCG/INH (DEVICE W/ 30 CAPSULES) IH SCH (09:20)
--- NOTE | 2016-10-04 09:24 | CONSULT ---
Consultation: REQUESTING PROVIDER: CONSULT REQUEST: We have been asked to medically evaluate this patient for ( specify). HISTORY OF PRESENT ILLNESS: patient states that his breathing is same as yesterday. REVIEW OF SYSTEMS: CONSTITUTIONAL: Absent: fever, chills, diaphoresis, HEENT: Absent: rhinorrhea, nasal congestion, throat pain, throat swelling, difficulty swallowing, mouth swelling, ear pain, eye pain, visual changes CARDIOVASCULAR: Absent: palpitations, irregular heart rate, lightheadedness, RESPIRATORY: present : cough, shortness of breath, wheezing. GASTROINTESTINAL: Absent: abdominal pain, abdominal distension, nausea, vomiting, diarrhea, GENITOURINARY: Absent: dysuria, frequency, urgency, hesitancy, hematuria, flank pain, genital pain MUSCULOSKELETAL: Absent: myalgia, arthralgia, joint swelling, back pain, neck pain SKIN: Absent: rash, itching, pallor NEUROLOGIC: Absent: headache, focal weakness PSYCHIATRIC: Absent: anxiety, depression PHYSICAL EXAMINATION Vital Signs - 24 hr 10/03/16 10/03/16 10/04/16 14:09 17:24 01:00 Temperature 98.3 F 98.6 F 98.5 F Pulse Rate 106 H 96 H 98 H Respiratory 16 20 22 Rate Blood Pressure 160/84 145/75 148/81 10/04/16 10/04/16 02:02 06:00 Temperature 98.4 F 98.4 F Pulse Rate 97 H 96 H Respiratory 22 20 Rate Blood Pressure 164/91 189/92 GENERAL: Awake, alert, and fully oriented, in no acute distress. HEAD: Normal with no signs of trauma. EYES: Pupils equal, round and reactive to light, EARS, NOSE, THROAT: Ears normal, nares patent, . NECK: Normal range of motion, supple without lymphadenopathy, LUNGS: Scattered rhonchi decreased since yesterday, No accessory muscle use. minimal expiratory wheez HEART: Regular rate, s1s2 normal ABDOMEN: Soft, nontender, not distended, normoactive bowel sounds, no guarding, no rebound, LOWER EXTREMITIES: warm, well-perfused. peripheral edema 2+ Laboratory Results - last 24 hr 10/03/16 10/03/16 10/03/16 06:15 11:24 17:44 WBC RBC Hgb Hct MCV MCHC RDW Plt Count MPV Neutrophils % Lymphocytes % Monocytes % Differential Comment Basophilic Stippling Sodium 144 Potassium 4.9 Chloride 103 Carbon Dioxide 27 Anion Gap 14 BUN 101 H Creatinine 2.7 H POC Glucometer 132 241 Random Glucose 204 H D Calcium 8.7 10/03/16 10/04/16 10/04/16 21:14 05:30 06:20 WBC 12.7 H RBC 3.46 L Hgb 10.5 L Hct 31.9 L MCV 92.4 MCHC 32.9 RDW 16.0 H Plt Count 204 MPV 10.0 Neutrophils % 93.0 H Lymphocytes % 5.0 L D Monocytes % 2.0 L Differential Comment Manual diff done Basophilic Stippling 1+ Sodium Potassium Chloride Carbon Dioxide Anion Gap BUN Creatinine POC Glucometer 155 167 Random Glucose Calcium 10/04/16 06:20 WBC RBC Hgb Hct MCV MCHC RDW Plt Count MPV Neutrophils % Lymphocytes % Monocytes % Differential Comment Basophilic Stippling Sodium 143 Potassium 4.6 Chloride 103 Carbon Dioxide 27 Anion Gap 13 BUN 92 H Creatinine 2.3 H POC Glucometer Random Glucose 209 H Calcium 9.1 Active Medications Generic Name Dose Route Start Last Admin Trade Name Freq PRN Reason Stop Dose Admin Acetaminophen 650 mg 09/29/16 08:57 Tylenol - PO Q4H PRN FEVER OR PAIN Albuterol Sulfate 1 amp 09/28/16 16:35 10/03/16 11:00 Ventolin 0.083% Nebulizer Soln - NEB 1 amp Q4H PRN Administration SHORT OF BREATH/WHEEZING Albuterol Sulfate 1 amp 10/01/16 14:00 10/04/16 06:55 Ventolin 0.083% Nebulizer Soln - NEB 1 amp TIDR JOSE LUIS Administration Allopurinol 100 mg 09/29/16 10:00 10/04/16 09:17 Zyloprim - PO 100 mg DAILY JOSE LUIS Administration Aspirin 81 mg 09/29/16 10:00 10/03/16 11:07 Asa - PO 81 mg Q2D@1000 JOSE LUIS Administration Budesonide/Formoterol Fumarate 2 puff 09/28/16 22:00 10/04/16 09:20 Symbicort 160/4.5mcg - IH 2 puff BID JOSE LUIS Administration Diltiazem HCl 120 mg 09/29/16 10:00 10/04/16 09:18 Cardizem Cd - PO 120 mg DAILY JOSE LUIS Administration Docusate Sodium 100 mg 09/29/16 10:00 10/04/16 09:17 Colace - PO 100 mg BID JOSE LUIS Administration Fentanyl 1 patch 09/29/16 08:30 10/02/16 09:31 Duragesic 75mcg Patch - TD 1 patch Q72H JOSE LUIS Administration Furosemide 40 mg 10/02/16 10:00 10/04/16 09:19 Lasix Injection - IVPUSH 40 mg DAILY JOSE LUIS Administration Gemfibrozil 600 mg 09/29/16 10:00 10/04/16 09:18 Lopid - PO 600 mg BID JOSE LUIS Administration Guaifenesin/Codeine Phosphate 10 ml 10/02/16 15:26 10/04/16 00:10 Robitussin Ac - PO 10 ml Q8H PRN Administration COUGH Hydromorphone HCl 2 mg 09/29/16 08:32 10/04/16 08:25 Dilaudid Injection - IVPUSH 2 mg Q6H PRN Administration PAIN Azithromycin 250 mg/ Dextrose 250 mls @ 250 mls/hr 09/29/16 10:00 10/04/16 09: 17 IVPB 250 mls/hr DAILY JOSE LUIS Administration Insulin Aspart 1 vial 09/29/16 23:15 10/04/16 06:40 Novolog Vial Sliding Scale - SQ Not Given ACHS [facility] [place] Protocol Insulin Aspart 25 units 10/01/16 07:00 10/04/16 06:42 Novolog Mix 70/30 Vial SQ 25 units BIDAC JOSE LUIS Administration Lactulose 10 gm 09/29/16 10:00 10/04/16 09:18 Cephulac (Oral Use) PO 10 gm DAILY JOSE LUIS Administration Methylprednisolone Sodium Succinate 40 mg 10/04/16 09:00 Solu-Medrol - IVPB Q12H JOSE LUIS Metoclopramide HCl 5 mg 09/29/16 11:00 10/04/16 06:42 Reglan - PO 5 mg TIDAC JOSE LUIS Administration Miscellaneous 1 each 09/29/16 09:01 10/02/16 09:52 Duragesic Patch Waste TD 1 each PRN PRN Administration Non-Formulary Medication 25 mg 10/01/16 10:00 Naloxegol Oxalate [Movantik] PO DAILY JOSE LUIS Ranitidine HCl 300 mg 09/29/16 10:00 10/04/16 09:18 Zantac - PO 300 mg DAILY JOSE LUIS Administration Roflumilast 500 mcg 10/02/16 10:50 10/03/16 11:07 Daliresp - PO 500 mcg DAILY JOSE LUIS Administration Senna 2 tab 09/29/16 08:30 09/29/16 22:32 Senna - PO 2 tab HS PRN Administration CONSTIPATION Sitagliptin Phosphate 25 mg 09/29/16 07:00 10/04/16 06:45 Januvia - PO 25 mg DAILY@0700 JOSE LUIS Administration Sodium Chloride 2 spray 10/03/16 14:40 [place] Nasal [place] - NS BID PRN NASAL CONGESTION Tamsulosin HCl 0.4 mg 09/29/16 10:00 10/04/16 09:18 Flomax - PO 0.4 mg BID JOSE LUIS Administration Terazosin HCl 5 mg 09/29/16 22:00 10/03/16 22:43 Hytrin - PO 5 mg HS JOSE LUIS Administration Tiotropium [place] 1 puff 09/28/16 17:30 10/04/16 09:20 Spiriva - IH 1 puff DAILY JOSE LUIS Administration Zolpidem Tartrate 5 mg 09/29/16 22:00 10/04/16 00:09 Ambien - PO 5 mg HS PRN Administration INSOMNIA ASSESSMENT/PLAN: impression copd excerbration HTN DM celia on ckd CHF LOW BACK PAIN H/O PANCREATITIS PLAN repeat labs in morning creatinine decreased to 2.3 ( base line cr 1.7) continue with lasix 40 mg iv daily continue to hold potassium supplement continue to hold losartan renal ultrasound: no hydro monitor urine output daily weight keep legs elevated while sitting Dispo: We will continue to follow the patient. Thank you for this consultative opportunity. Visit type - Emergency Visit Emergency Visit: Yes ED Registration Date: 09/28/16 Care time: The patient presented to the Emergency Department on the above date and was hospitalized for further evaluation of their emergent condition. - New Patient This patient is new to me today: No - Critical Care Critical Care patient: No
[2016-10-04] MEDS: ROFLUMILAST 500 MCG TABLET PO SCH (09:47)
[2016-10-04] MEDS: ALBUTEROL SO4 0.083% IH SOL 2.5 MG/3 ML VIAL.NEB. NEB PRN (10:35)
--- NOTE | 2016-10-04 12:01 | PN ---
Progress Note, Physician Chief Complaint: per nurse patient was hallucinating not making sense earlier in day keeps asking for dilaudid i went in room he was calm sitting on bed i was able to understand what he said he was making sense - Current Medication List Current Medications: Active Medications Acetaminophen (Tylenol -) 650 mg PO Q4H PRN PRN Reason: FEVER OR PAIN Albuterol Sulfate (Ventolin 0.083% Nebulizer Soln -) 1 amp NEB Q4H PRN PRN Reason: SHORT OF BREATH/WHEEZING Last Admin: 10/04/16 10:35 Dose: 1 amp Albuterol Sulfate (Ventolin 0.083% Nebulizer Soln -) 1 amp NEB TIDR [facility] Last Admin: 10/04/16 06:55 Dose: 1 amp Allopurinol (Zyloprim -) 100 mg PO DAILY [facility] Last Admin: 10/04/16 09:17 Dose: 100 mg Aspirin (Asa -) 81 mg PO Q2D@1000 [facility] Last Admin: 10/03/16 11:07 Dose: 81 mg Budesonide/Formoterol Fumarate (Symbicort 160/4.5mcg -) 2 puff IH BID [facility] Last Admin: 10/04/16 09:20 Dose: 2 puff Diltiazem HCl (Cardizem Cd -) 120 mg PO DAILY [facility] Last Admin: 10/04/16 09:18 Dose: 120 mg Docusate Sodium (Colace -) 100 mg PO BID [facility] Last Admin: 10/04/16 09:17 Dose: 100 mg Fentanyl (Duragesic 75mcg Patch -) 1 patch TD Q72H [facility] Last Admin: 10/02/16 09:31 Dose: 1 patch Furosemide (Lasix Injection -) 40 mg IVPUSH DAILY [facility] Last Admin: 10/04/16 09:19 Dose: 40 mg Gemfibrozil (Lopid -) 600 mg PO BID [facility] Last Admin: 10/04/16 09:18 Dose: 600 mg Guaifenesin/Codeine Phosphate (Robitussin Ac -) 10 ml PO Q8H PRN PRN Reason: COUGH Last Admin: 10/04/16 00:10 Dose: 10 ml Hydromorphone HCl (Dilaudid Injection -) 2 mg IVPUSH Q6H PRN PRN Reason: PAIN Last Admin: 10/04/16 08:25 Dose: 2 mg Azithromycin 250 mg/ Dextrose 250 mls @ 250 mls/hr IVPB DAILY [facility] Last Admin: 10/04/16 09:17 Dose: 250 mls/hr Insulin Aspart (Novolog Vial Sliding Scale -) 1 vial SQ ACHS [facility] PRN Reason: Protocol Last Admin: 10/04/16 06:40 Dose: Not Given Insulin Aspart (Novolog Mix 70/30 Vial) 25 units SQ BIDAC [facility] Last Admin: 10/04/16 06:42 Dose: 25 units Lactulose (Cephulac (Oral Use)) 10 gm PO DAILY [facility] Last Admin: 10/04/16 09:18 Dose: 10 gm Methylprednisolone Sodium Succinate (Solu-Medrol -) 40 mg IVPB BID [facility] Last Admin: 10/04/16 09:48 Dose: 40 mg Metoclopramide HCl (Reglan -) 5 mg PO TIDAC [facility] Last Admin: 10/04/16 06:42 Dose: 5 mg Miscellaneous (Duragesic Patch Waste) 1 each TD PRN PRN Last Admin: 10/02/16 09:52 Dose: 1 each Non-Formulary Medication (Naloxegol Oxalate [Movantik]) 25 mg PO DAILY [facility] Ranitidine HCl (Zantac -) 300 mg PO DAILY [facility] Last Admin: 10/04/16 09:18 Dose: 300 mg Roflumilast (Daliresp -) 500 mcg PO DAILY [facility] Last Admin: 10/04/16 09:47 Dose: 500 mcg Senna (Senna -) 2 tab PO HS PRN PRN Reason: CONSTIPATION Last Admin: 09/29/16 22:32 Dose: 2 tab Sitagliptin Phosphate (Januvia -) 25 mg PO DAILY@0700 [facility] Last Admin: 10/04/16 06:45 Dose: 25 mg Sodium Chloride ([place] Nasal [place] -) 2 spray NS BID PRN PRN Reason: NASAL CONGESTION Tamsulosin HCl (Flomax -) 0.4 mg PO BID [facility] Last Admin: 10/04/16 09:18 Dose: 0.4 mg Terazosin HCl (Hytrin -) 5 mg PO HS [facility] Last Admin: 10/03/16 22:43 Dose: 5 mg Tiotropium [place] (Spiriva -) 1 puff IH DAILY [facility] Last Admin: 10/04/16 09:20 Dose: 1 puff Zolpidem Tartrate (Ambien -) 5 mg PO HS PRN PRN Reason: INSOMNIA Last Admin: 10/04/16 00:09 Dose: 5 mg - Objective Vital Signs: Vital Signs Temperature 98.6 F 10/04/16 09:00 Pulse Rate 91 H 10/04/16 10:15 Respiratory Rate 18 10/04/16 09:00 Blood Pressure 128/71 10/04/16 09:00 O2 Sat by Pulse Oximetry (%) 90 L 10/04/16 10:15 Constitutional: Yes: Calm Cardiovascular: Yes: Regular Rate and Rhythm, S1, S2 Respiratory: Yes: Rhonchi Gastrointestinal: Yes: Normal Bowel Sounds, Soft Edema: Yes Edema: LLE: 2+, RLE: 2+ Neurological: Yes: Alert (oriented to name) Labs: CBC, BMP 10/04/16 06:20 10/04/16 06:20 Problem List - Problems (1) Hallucination Assessment/Plan: check ammonia level neuro i doubt its seconadry to dilaudid as patient has been on higher doses in prior admissions maybe sec to patient not sleeping enough Code(s): R44.3 - HALLUCINATIONS, UNSPECIFIED (2) COPD exacerbation Assessment/Plan: IV steroids taper pulm on board broncho dilators darisep tmw last day of abx Code(s): J44.1 - CHRONIC OBSTRUCTIVE PULMONARY DISEASE W (ACUTE) EXACERBATION (3) Back pain Assessment/Plan: fentanyl patch pain meds Code(s): M54.9 - DORSALGIA, UNSPECIFIED (4) CKD (chronic kidney disease) Assessment/Plan: daily weight monitor lytes, creatinine is improving renal on board Code(s): N18.9 - CHRONIC KIDNEY DISEASE, UNSPECIFIED Qualifiers: Chronic kidney disease stage: unspecified stage Qualified Code(s): N18.9 - Chronic kidney disease, unspecified (5) CHF (congestive heart failure) Assessment/Plan: acute on chronic CHF iv lasix monitor ltytes Code(s): I50.9 - HEART FAILURE, UNSPECIFIED Qualifiers: Congestive heart failure type: diastolic (6) BPH (benign prostatic hyperplasia) Assessment/Plan: flomax and hytrin Code(s): N40.0 - BENIGN PROSTATIC HYPERPLASIA WITHOUT LOWER URINRY TRACT SYMP (7) Diabetes mellitus, insulin dependent (IDDM), uncontrolled Assessment/Plan: insulin Code(s): E10.65 - TYPE 1 DIABETES MELLITUS WITH HYPERGLYCEMIA Qualifiers: Diabetes mellitus complication status: without complication Qualified Code(s): E10.9 - Type 1 diabetes mellitus without complications
[2016-10-04] MEDS: PATIENT'S OWN MEDICATION (NON-FORMULARY) (Naloxegol Oxalate [Movantik] 25 MG) PO SCH ×4 (12:13→12:16)
--- NOTE | 2016-10-04 13:56 | CON.NEURO ---
Consult Consult Specialty:: NEUROLOGY Reason for Consultation:: altered mental status, hallucinations - History of Present Illness History of Present Illness: 71y M hx of CHF, CKD, HTN, HL, DM, COPD, back pain,on chronic pain medication- opioids, BPH, anemia, pancreatitis was admitted for worsening cough, leg swelling, congestion five days ago. Last night per nurse the patient had altered mental status and hallucinations. - History Source History Provided By: Patient, Medical Record - Past Medical History FLATWORK PRESSER: Yes: Migraine Cardio/Vascular: Yes: CHF, HTN, Hyperlipdemia Pulmonary: Yes: COPD, O2 Dependent Gastrointestinal: Yes: GERD Renal/: Yes: Renal Inusuff, BPH, Cancer, Hematuria, UTI, Other (CKD) Psych: Yes: Anxiety Musculoskeletal: Yes: Chronic low back pain, Osteoarthritis Endocrine: Yes: Diabetes Mellitus - Past Surgical History Past Surgical History: Yes: Colonoscopy (Done last December (2013) negative for significant pathology) - Alcohol/Substance Use Hx Alcohol Use: No - Smoking History Smoking history: Former smoker Have you smoked in the past 12 months: No Aproximately how many cigarettes per day: 2 If you are a former smoker, when did you quit?: 2013 Home Medications - Allergies Allergies/Adverse Reactions: Allergies Allergy/AdvReac Type Severity Reaction Status Date / Time No Known Drug Allergies Allergy Verified 05/04/16 11:01 HOT PEPPER Allergy SNEEZING Uncoded 05/04/16 11:01 - Home Medications Home Medications: Ambulatory Orders Aspirin [ASA -] 81 mg PO Q2D@1000 #30 tab.chew 12/27/14 Gemfibrozil [Lopid -] 600 mg PO BID #180 tablet 12/27/14 Terazosin HCl [Hytrin -] 5 mg PO HS #30 capsule 12/27/14 Losartan Potassium [Cozaar -] 50 mg PO DAILY tablet 05/05/15 Cyanocobalamin [Vitamin B12 -] 1 g PO DAILY 12/19/15 Lactulose 10 gm PO DAILY 12/20/15 Iron 325 mg PO BID 02/22/16 Tamsulosin HCl [Flomax -] 0.4 mg PO BID 02/22/16 FENTANYL 75mcg PATCH [DURAGESIC 75mcg PATCH -] 1 patch TD Q72H 02/23/16 Albuterol Sulfate Inhaler - [Ventolin HFA Inhaler -] 1 - 2 inh PO Q4H #1 inhaler 03/11/16 Docusate Sodium [Colace -] 100 mg PO BID #60 capsule 03/11/16 Diltiazem Cd [Cardizem Cd -] 120 mg PO DAILY 05/05/16 Naloxegol Oxalate [Movantik] 25 mg PO DAILY PRN 05/05/16 Potassium Chloride [K-Dur -] 20 meq PO DAILY 05/05/16 Prednisone 10 mg PO DAILY 05/05/16 Sitagliptin Phosphate [Januvia] 25 mg PO DAILY 05/05/16 Zolpidem Tartrate [Ambien] 10 mg PO HS PRN 05/05/16 Furosemide [Lasix -] 60 mg PO DAILY tablet 05/09/16 Metoclopramide HCl [Reglan -] 5 mg PO TIDAC tablet 05/09/16 Sennosides [Senna -] 2 tab PO HS PRN #0 tablet 05/09/16 Oxycodone HCl/Acetaminophen [Percocet 10-325 mg Tablet] 1 each PO TID PRN #60 tablet MDD 3 05/10/16 Allopurinol [Zyloprim -] 100 mg PO DAILY 09/28/16 Amoxicillin/Potassium Clav [Amox-Clav 875-125 mg Tablet] 1 each PO BID 09/28/16 Cefuroxime Axetil [Cefuroxime] 500 mg PO BID 09/28/16 Lactulose [Generlac] 10 gm PO DAILY 09/28/16 Ranitidine HCl 300 mg PO DAILY 09/28/16 Sennosides [Senokot] 8.6 mg PO DAILY 09/28/16 Family Disease History - Family Disease History Family Disease History: Diabetes: Brother, Heart Disease: Brother Review of Systems - Review of Systems Constitutional: reports: Lethargy, Weakness Eyes: reports: No Symptoms HENT: reports: No Symptoms Neck: reports: No Symptoms Cardiovascular: reports: Shortness of Breath Respiratory: reports: Cough, Exercise Intolerance, Orthopnea, SOB on Exertion, Wheezing Gastrointestinal: reports: No Symptoms Genitourinary: reports: No Symptoms Breasts: reports: No Symptoms Reported Musculoskeletal: reports: Back Pain, Joint Pain, Muscle Weakness Neurological: reports: Change in LOC, Confusion Endocrine: reports: No Symptoms Psychiatric: reports: Anxiety, Hallucinations Physical Exam-Neuro Vital Signs: Vital Signs Temperature 98.6 F 10/04/16 09:00 Pulse Rate 91 H 10/04/16 10:15 Respiratory Rate 18 10/04/16 09:00 Blood Pressure 128/71 10/04/16 09:00 O2 Sat by Pulse Oximetry (%) 90 L 10/04/16 10:15 Constitutional: Yes: Moderate Distress Neck: Yes: Supple, Trachea Midline Cardiovascular: Yes: Regular Rate and Rhythm, JVD, S1, S2 Respiratory: Yes: Regular, CTA Bilaterally, Accessory Muscle Use, Cough, On Nasal O2, Orthopnea, Rales, Tachypnea Gastrointestinal: Yes: Normal Bowel Sounds, Soft, Abdomen, Obese Renal/: Yes: WNL Musculoskeletal: Yes: Back Pain Edema: Yes Edema: LUE: 2+, RUE: 2+, LLE: 2+, RLE: 3+ Psychiatric: Yes: Alert, Oriented, Agitated Labs: CBC, BMP 10/04/16 06:20 10/04/16 06:20 - Neuro Exam Level Of Consciousness: Yes: Oriented to Person, Oriented to Place Eyes: Yes: PERRLA Speech: Slurred Dominant Hand: Right Cranial Nerves II-XII Intact: Yes Gag: Present DTR's: 1+ Left Bicep, 1+ Right Bicep, 1+ Left Tricep, 1+ Right Tricep, 1+ Left Brachioradialis, 1+ Right Brachioradialis, 1+ Left Achilles, 1+ Right Achilles Babinski: Absent Response to light touch: Normal Response to pain prick: Normal Response to temperature: Normal Response to vibration: Normal Movement Disorders: Asterixis, Tremors Coordination: Normal: Finger to Nose (ataxia), Heel to Downs (ataxia) Motor Strength: 5/5: Left Arm, Right Arm, Left Leg, Right Leg Gait: Ataxia Imaging - Results X-ray: Report Reviewed, Image Reviewed Problem List - Problems (1) COPD exacerbation Code(s): J44.1 - CHRONIC OBSTRUCTIVE PULMONARY DISEASE W (ACUTE) EXACERBATION (2) Acute on chronic respiratory failure with hypoxia and hypercapnia Code(s): J96.21 - ACUTE AND CHRONIC RESPIRATORY FAILURE WITH HYPOXIA J96.22 - ACUTE AND CHRONIC RESPIRATORY FAILURE WITH HYPERCAPNIA (3) Delirium due to another medical condition Code(s): F05 - DELIRIUM DUE TO KNOWN PHYSIOLOGICAL CONDITION (4) Delirium, drug-induced Code(s): F19.921 - OTH PSYCHOACTIVE SUBSTANCE USE, UNSP W INTOX W DELIRIUM (5) Acute metabolic encephalopathy Code(s): G93.41 - METABOLIC ENCEPHALOPATHY Assessment/Plan 71y M hx of CHF, CKD, HTN, HL, DM, COPD, back pain,on chronic pain medication- opioids, BPH, anemia, pancreatitis was admitted for worsening cough, leg swelling, congestion five days ago. Last night per nurse the patient had altered mental status and hallucinations. Nonfocal neurologic exam. Impression: delirium versus metabolic encephalopathy versus opiods overuse versus steroids induced psychosis. Plan: - PT/OT/ST - correct electrolytes, fluids . - consider CT head to rule out ICP. - check B12, folate - adjust opiods, pain medication- zain down the opioids iv. dilaudid inj. frequency. Keep duragesic patch. - give valium 1-2 mg. iv. prn at night if you admininstrate steroids . - regulate sleep circadian cycle, sleep at night, stay awake during the day- sunlight exposure. Thank you for this consult.
[2016-10-04] MEDS ORDERED: diazePAM CARPU-JECT 10 MG/2 ML DISP.SYRIN IVPUSH PRN (15:23)
--- NOTE | 2016-10-04 15:36 | PN ---
Teaching Attending Note Name of Resident: Walter Wang (Nephrology) ATTENDING PHYSICIAN STATEMENT I saw and evaluated the patient. I reviewed the resident's note and discussed the case with the resident. I agree with the resident's findings and plan as documented. Current Medications Generic Name Dose Route Start Last Admin Trade Name Freq PRN Reason Stop Dose Admin Acetaminophen 650 mg 09/29/16 08:57 Tylenol - PO Q4H PRN FEVER OR PAIN Albuterol Sulfate 1 amp 09/28/16 16:35 10/04/16 10:35 Ventolin 0.083% Nebulizer Soln - NEB 1 amp Q4H PRN Administration SHORT OF BREATH/WHEEZING Albuterol Sulfate 1 amp 10/01/16 14:00 10/04/16 14:10 Ventolin 0.083% Nebulizer Soln - NEB 1 amp TIDR JOSE LUIS Administration Allopurinol 100 mg 09/29/16 10:00 10/04/16 09:17 Zyloprim - PO 100 mg DAILY JOSE LUIS Administration Aspirin 81 mg 09/29/16 10:00 10/03/16 11:07 Asa - PO 81 mg Q2D@1000 JOSE LUIS Administration Budesonide/Formoterol Fumarate 2 puff 09/28/16 22:00 10/04/16 09:20 Symbicort 160/4.5mcg - IH 2 puff BID JOSE LUIS Administration Diazepam 1 mg 10/04/16 15:23 Valium Injection - IVPUSH HS PRN AGITATION Diltiazem HCl 120 mg 09/29/16 10:00 10/04/16 09:18 Cardizem Cd - PO 120 mg DAILY JOSE LUIS Administration Docusate Sodium 100 mg 09/29/16 10:00 10/04/16 09:17 Colace - PO 100 mg BID JOSE LUIS Administration Fentanyl 1 patch 09/29/16 08:30 10/02/16 09:31 Duragesic 75mcg Patch - TD 1 patch Q72H JOSE LUIS Administration Furosemide 40 mg 10/02/16 10:00 10/04/16 09:19 Lasix Injection - IVPUSH 40 mg DAILY JOSE LUIS Administration Gemfibrozil 600 mg 09/29/16 10:00 10/04/16 09:18 Lopid - PO 600 mg BID JOSE LUIS Administration Guaifenesin/Codeine Phosphate 10 ml 10/02/16 15:26 10/04/16 00:10 Robitussin Ac - PO 10 ml Q8H PRN Administration COUGH Hydromorphone HCl 1 mg 10/04/16 15:22 Dilaudid Injection - IVPB Q6H PRN PAIN Azithromycin 250 mg/ Dextrose 250 mls @ 250 mls/hr 09/29/16 10:00 10/04/16 09: 17 IVPB 250 mls/hr DAILY JOSE LUIS Administration Insulin Aspart 1 vial 09/29/16 23:15 10/04/16 12:11 Novolog Vial Sliding Scale - SQ Not Given ACHS [facility] Protocol Insulin Aspart 25 units 10/01/16 07:00 10/04/16 06:42 Novolog Mix 70/30 Vial SQ 25 units BIDAC JOSE LUIS Administration Lactulose 10 gm 09/29/16 10:00 10/04/16 09:18 Cephulac (Oral Use) PO 10 gm DAILY JOSE LUIS Administration Methylprednisolone Sodium Succinate 40 mg 10/04/16 10:00 10/04/16 09:48 Solu-Medrol - IVPB 40 mg BID JOSE LUIS Administration Metoclopramide HCl 5 mg 09/29/16 11:00 10/04/16 12:12 Reglan - PO Not Given [facility]AC [facility] Miscellaneous 1 each 09/29/16 09:01 10/02/16 09:52 Duragesic Patch Waste TD 1 each PRN PRN Administration Ranitidine HCl 300 mg 09/29/16 10:00 10/04/16 09:18 Zantac - PO 300 mg DAILY JOSE LUIS Administration Roflumilast 500 mcg 10/02/16 10:50 10/04/16 09:47 Daliresp - PO 500 mcg DAILY JOSE LUIS Administration Senna 2 tab 09/29/16 08:30 09/29/16 22:32 Senna - PO 2 tab HS PRN Administration CONSTIPATION Sitagliptin Phosphate 25 mg 09/29/16 07:00 10/04/16 06:45 Januvia - PO 25 mg DAILY@0700 JOSE LUIS Administration Sodium Chloride 2 spray 10/03/16 14:40 [place] Nasal [place] - NS BID PRN NASAL CONGESTION Tamsulosin HCl 0.4 mg 09/29/16 10:00 10/04/16 09:18 Flomax - PO 0.4 mg BID JOSE LUIS Administration Terazosin HCl 5 mg 09/29/16 22:00 10/03/16 22:43 Hytrin - PO 5 mg HS JOSE LUIS Administration Tiotropium [place] 1 puff 09/28/16 17:30 10/04/16 09:20 Spiriva - IH 1 puff DAILY JOSE LUIS Administration cardio s1s2 reg pulm clear GI soft, obese ext edema neuro awake Impression 1. CKD 2. DM 3. HTN 4. CHF 5. COPD 6. fluid overload Plan - renal function is improving - cont with lasix - will keep losartan on hold until renal function stabilizes - taper steroids as tolerated - baseline clinical lab assistant is about 1.7 - hold potassium supplements - repeat labs in am - avoid hypotension
[2016-10-04] MEDS: HYDROmorphone HCL CARPU-JECT 1 MG/1 ML DISP.SYRIN IVPB PRN ×2 (17:04→23:10)
[2016-10-04] MEDS: TERAZOSIN HCL 5 MG CAPSULE PO SCH (21:57)
[2016-10-05] MEDS ORDERED: INSULIN (NOVOLOG) ASPART 100 UNITS/ML 10ML VIAL ONE ×3 (06:22→12:28)
[2016-10-05] MEDS: METOCLOPRAMIDE HCL 10 MG TABLET (FP) PO SCH ×3 (06:31→18:01)
[2016-10-05] MEDS: INSULIN SLIDING SCALE (NOVOLOG) 1 VIAL SQ SCH ×4 (06:32→22:07)
[2016-10-05] MEDS: sitaGLIPtin PHOSPHATE 25 MG TABLET (FP) PO SCH (06:32)
[2016-10-05] MEDS: INSULIN (NOVOLOG MIX 70/30) 100 UNITS/ML MDV SQ SCH ×2 (06:32→18:01)
[2016-10-05] MEDS: ALBUTEROL SO4 0.083% IH SOL 2.5 MG/3 ML VIAL.NEB. NEB SCH ×3 (06:45→22:00)
[2016-10-05] MEDS ORDERED: INSULIN DETEMIR 100 UNITS/ML MDV SQ ONE (06:58)
[2016-10-05] MEDS ORDERED: INSULIN (NOVOLOG MIX 70/30) 100 UNITS/ML MDV SQ ONE (06:58)
[2016-10-05 08:02] LABS: ALBUMIN 3.5 g/dl (3.4-5.0); BILIRUBIN,TOTAL 0.3 mg/dL (0.2-1.0); CALCIUM 8.7 mg/dL (8.5-10.1); CREATININE 2.1 mg/dL (0.7-1.3); TOT PROT 6.5 g/dl (6.4-8.2)
--- NOTE | 2016-10-05 08:08 | PN ---
Progress Note, Physician Chief Complaint: HAVING BREAKFAST AT BEDSIDE FOOD FLYING OUT OF MOUTH WHILE TALKING/COMPLAINING ABOUT PAIN Rx REGIMEN SEEMS CLOSE TO BASELINE - Current Medication List Current Medications: Active Medications Acetaminophen (Tylenol -) 650 mg PO Q4H PRN PRN Reason: FEVER OR PAIN Albuterol Sulfate (Ventolin 0.083% Nebulizer Soln -) 1 amp NEB Q4H PRN PRN Reason: SHORT OF BREATH/WHEEZING Last Admin: 10/04/16 10:35 Dose: 1 amp Albuterol Sulfate (Ventolin 0.083% Nebulizer Soln -) 1 amp NEB TIDR [facility] Last Admin: 10/05/16 06:45 Dose: 1 amp Allopurinol (Zyloprim -) 100 mg PO DAILY [facility] Last Admin: 10/04/16 09:17 Dose: 100 mg Aspirin (Asa -) 81 mg PO Q2D@1000 [facility] Last Admin: 10/03/16 11:07 Dose: 81 mg Budesonide/Formoterol Fumarate (Symbicort 160/4.5mcg -) 2 puff IH BID [facility] Last Admin: 10/04/16 21:58 Dose: 2 puff Diazepam (Valium Injection -) 1 mg IVPUSH HS PRN PRN Reason: AGITATION Diltiazem HCl (Cardizem Cd -) 120 mg PO DAILY [facility] Last Admin: 10/04/16 09:18 Dose: 120 mg Docusate Sodium (Colace -) 100 mg PO BID [facility] Last Admin: 10/04/16 21:57 Dose: 100 mg Fentanyl (Duragesic 75mcg Patch -) 1 patch TD Q72H [facility] Last Admin: 10/02/16 09:31 Dose: 1 patch Furosemide (Lasix Injection -) 40 mg IVPUSH DAILY [facility] Last Admin: 10/04/16 09:19 Dose: 40 mg Gemfibrozil (Lopid -) 600 mg PO BID [facility] Last Admin: 10/04/16 21:56 Dose: 600 mg Guaifenesin/Codeine Phosphate (Robitussin Ac -) 10 ml PO Q8H PRN PRN Reason: COUGH Last Admin: 10/04/16 23:51 Dose: 10 ml Hydromorphone HCl (Dilaudid Injection -) 1 mg IVPB Q6H PRN PRN Reason: PAIN Last Admin: 02/02/17 23:10 Dose: 1 mg Azithromycin 250 mg/ Dextrose 250 mls @ 250 mls/hr IVPB DAILY [facility] Last Admin: 10/04/16 09:17 Dose: 250 mls/hr Insulin Aspart (Novolog Vial Sliding Scale -) 1 vial SQ ACHS [facility] PRN Reason: Protocol Last Admin: 10/05/16 06:32 Dose: Not Given Insulin Aspart (Novolog Mix 70/30 Vial) 25 units SQ BIDAC [facility] Last Admin: 10/05/16 06:32 Dose: 25 units Lactulose (Cephulac (Oral Use)) 10 gm PO DAILY [facility] Last Admin: 10/04/16 09:18 Dose: 10 gm Methylprednisolone Sodium Succinate (Solu-Medrol -) 40 mg IVPB BID [facility] Last Admin: 10/04/16 21:56 Dose: 40 mg Metoclopramide HCl (Reglan -) 5 mg PO TIDAC [facility] Last Admin: 10/05/16 06:31 Dose: 5 mg Miscellaneous (Duragesic Patch Waste) 1 each TD PRN PRN Last Admin: 10/02/16 09:52 Dose: 1 each Ranitidine HCl (Zantac -) 300 mg PO DAILY [facility] Last Admin: 10/04/16 09:18 Dose: 300 mg Roflumilast (Daliresp -) 500 mcg PO DAILY [facility] Last Admin: 10/04/16 09:47 Dose: 500 mcg Senna (Senna -) 2 tab PO HS PRN PRN Reason: CONSTIPATION Last Admin: 09/29/16 22:32 Dose: 2 tab Sitagliptin Phosphate (Januvia -) 25 mg PO DAILY@0700 [facility] Last Admin: 10/05/16 06:32 Dose: 25 mg Sodium Chloride ([place] Nasal [place] -) 2 spray NS BID PRN PRN Reason: NASAL CONGESTION Last Admin: 10/04/16 22:21 Dose: 2 sprays Tamsulosin HCl (Flomax -) 0.4 mg PO BID [facility] Last Admin: 10/04/16 21:57 Dose: 0.4 mg Terazosin HCl (Hytrin -) 5 mg PO HS [facility] Last Admin: 10/04/16 21:57 Dose: 5 mg Tiotropium [place] (Spiriva -) 1 puff IH DAILY [facility] Last Admin: 10/04/16 09:20 Dose: 1 puff Zolpidem Tartrate (Ambien -) 5 mg PO HS PRN PRN Reason: INSOMNIA Last Admin: 10/04/16 23:51 Dose: 5 mg - Objective Vital Signs: Vital Signs Temperature 98.4 F 10/05/16 06:00 Pulse Rate 93 H 10/05/16 06:00 Respiratory Rate 22 10/05/16 06:00 Blood Pressure 144/87 10/05/16 06:00 O2 Sat by Pulse Oximetry (%) 90 L 10/04/16 21:00 Constitutional: Yes: Calm Cardiovascular: Yes: Regular Rate and Rhythm, S1, S2 Respiratory: Yes: Rhonchi Gastrointestinal: Yes: Normal Bowel Sounds, Soft Edema: LLE: Trace, RLE: 1+ Labs: CBC, BMP 10/04/16 06:20 10/05/16 06:15 Problem List - Problems (1) Delirium, drug-induced Code(s): F19.921 - OTH PSYCHOACTIVE SUBSTANCE USE, UNSP W INTOX W DELIRIUM (2) Back pain Code(s): M54.9 - DORSALGIA, UNSPECIFIED (3) BPH (benign prostatic hyperplasia) Code(s): N40.0 - BENIGN PROSTATIC HYPERPLASIA WITHOUT LOWER URINRY TRACT SYMP (4) CHF (congestive heart failure) Code(s): I50.9 - HEART FAILURE, UNSPECIFIED Qualifiers: Congestive heart failure type: diastolic (5) CKD (chronic kidney disease) Code(s): N18.9 - CHRONIC KIDNEY DISEASE, UNSPECIFIED Qualifiers: Chronic kidney disease stage: unspecified stage Qualified Code(s): N18.9 - Chronic kidney disease, unspecified (6) COPD exacerbation Code(s): J44.1 - CHRONIC OBSTRUCTIVE PULMONARY DISEASE W (ACUTE) EXACERBATION (7) Delirium due to another medical condition Code(s): F05 - DELIRIUM DUE TO KNOWN PHYSIOLOGICAL CONDITION (8) Diabetes mellitus Code(s): E11.9 - TYPE 2 DIABETES MELLITUS WITHOUT COMPLICATIONS Qualifiers: Diabetes mellitus type: type 2 Diabetes mellitus complication status: without complication (9) Hallucination Code(s): R44.3 - HALLUCINATIONS, UNSPECIFIED Assessment/Plan (1) Hallucination Assessment/Plan: check ammonia level -> ordered neuro i doubt its seconadry to dilaudid as patient has been on higher doses in prior admissions maybe sec to patient not sleeping enough Code(s): R44.3 - HALLUCINATIONS, UNSPECIFIED (2) COPD exacerbation Assessment/Plan: IV steroids taper pulm on board broncho dilators darisep tmw last day of abx Code(s): J44.1 - CHRONIC OBSTRUCTIVE PULMONARY DISEASE W (ACUTE) EXACERBATION (3) Back pain Assessment/Plan: fentanyl patch pain meds Code(s): M54.9 - DORSALGIA, UNSPECIFIED (4) CKD (chronic kidney disease) Assessment/Plan: daily weight monitor lytes, creatinine is improving renal on board Code(s): N18.9 - CHRONIC KIDNEY DISEASE, UNSPECIFIED Qualifiers: Chronic kidney disease stage: unspecified stage Qualified Code(s): N18.9 - Chronic kidney disease, unspecified (5) CHF (congestive heart failure) Assessment/Plan: acute on chronic CHF iv lasix monitor ltytes Code(s): I50.9 - HEART FAILURE, UNSPECIFIED Qualifiers: Congestive heart failure type: diastolic (6) BPH (benign prostatic hyperplasia) Assessment/Plan: flomax and hytrin Code(s): N40.0 - BENIGN PROSTATIC HYPERPLASIA WITHOUT LOWER URINRY TRACT SYMP (7) Diabetes mellitus, insulin dependent (IDDM), uncontrolled Assessment/Plan: insulin Code(s): E10.65 - TYPE 1 DIABETES MELLITUS WITH HYPERGLYCEMIA Qualifiers: Diabetes mellitus complication status: without complication Qualified Code(s): E10.9 - Type 1 diabetes mellitus without complications (8) Delirium, drug-induced Code(s): F19.921 - OTH PSYCHOACTIVE SUBSTANCE USE, UNSP W INTOX W DELIRIUM 2/2 NARCOTIC PAIN Rx? R/O DYSPHAGIA -> ST OPIOID DEPENDENCE NEURO & ADDICTION Rx CONSULTED [employer]
[2016-10-05] MEDS ORDERED: PT OWN MED DRAWER 7, Y5N ONE ×2 (09:13→21:38)
[2016-10-05] MEDS: FUROSEMIDE 40 MG/4 ML INJECTABLE VIAL IVPUSH SCH (09:29)
[2016-10-05] MEDS: methylPREDNISolone NA SUCC 40 MG/1 ML VIAL IVPB SCH ×2 (09:29→22:05)
[2016-10-05] MEDS: ALLOPURINOL 100 MG TABLET (FP) PO SCH (09:29)
[2016-10-05] MEDS: RANITIDINE HCL 150 MG TABLET (FP) PO SCH (09:29)
[2016-10-05] MEDS: LACTULOSE 20 GM/30 ML UDC (FOR ORAL USE ONLY) PO SCH (09:30)
[2016-10-05] MEDS: DOCUSATE SODIUM 100 MG CAPSULE (FP) PO SCH ×2 (09:30→22:07)
[2016-10-05] MEDS: GEMFIBROZIL 600 MG TABLET (FP) PO SCH ×2 (09:30→22:07)
[2016-10-05] MEDS: TAMSULOSIN HCL 0.4 MG CAP.ER.24H (FP) PO SCH ×2 (09:30→22:07)
[2016-10-05] MEDS: fentaNYL 75mcg/hr PATCH.TD72 TD SCH (09:31)
[2016-10-05] MEDS: ROFLUMILAST 500 MCG TABLET PO SCH (09:32)
[2016-10-05] MEDS: TIOTROPIUM BROMIDE 18 MCG/INH (DEVICE W/ 30 CAPSULES) IH SCH (09:32)
[2016-10-05] MEDS: HYDROmorphone HCL CARPU-JECT 1 MG/1 ML DISP.SYRIN IVPB PRN ×2 (09:32→18:10)
[2016-10-05] MEDS: BUDESONIDE/FORMETEROL FUMARATE 160/4.5 mcg INHALER IH SCH ×2 (09:32→22:08)
[2016-10-05] MEDS: FENTANYL PATCH WASTE TD PRN (09:42)
[2016-10-05] MEDS: ALBUTEROL SO4 0.083% IH SOL 2.5 MG/3 ML VIAL.NEB. NEB PRN ×2 (10:20→17:20)
--- NOTE | 2016-10-05 10:41 | CONSULT ---
Admitting History and Physical - Primary Care Physician PCP: Jan Ordoñez - Admission History of Present Illness: Per EMR: Neurology 10/04-"71y M hx of CHF, CKD, HTN, HL, DM, COPD, back pain,on chronic pain medication- opioids, BPH, anemia, pancreatitis was admitted for worsening cough, leg swelling, congestion five days ago. Last night per nurse the patient had altered mental status and hallucinations. Nonfocal neurologic exam. Impression: delirium versus metabolic encephalopathy versus opiods overuse versus steroids induced psychosis." CXR Atelectasis/mild infiltrates on right History Source: Patient, Medical Record Limitations to Obtaining History: No Limitations - Past Medical History PANTS PRESSER: Yes: Migraine Cardiovascular: Yes: CHF, HTN, Hyperlipdemia Pulmonary: Yes: COPD, O2 Dependent Gastrointestinal: Yes: GERD Renal/: Yes: Renal Inusuff, BPH, Cancer, Hematuria, UTI, Other (CKD) Heme/Onc: Yes: Anemia Psych: Yes: Anxiety Musculoskeletal: Yes: Chronic low back pain, Osteoarthritis Endocrine: Yes: Diabetes Mellitus - Past Surgical History Past Surgical History: Yes: Colonoscopy (Done last December (2013) negative for significant pathology) - Smoking History Smoking history: Former smoker Have you smoked in the past 12 months: No Aproximately how many cigarettes per day: 2 If you are a former smoker, when did you quit?: 2013 - Alcohol/Substance Use Hx Alcohol Use: No History - Admission Reason For Visit: COPD EXACERBATON; CKD; PNEUMONIA - Diagnostics X-ray: Report Reviewed - General Mental Status: Alert and Oriented, Awake and Alert, Able to Follow Commands Attention: Intact Ability to Follow Directions: Good Head/Neck Control: WFL - Hearing Hearing: Impaired Hearing Aide: No With Patient: No Speech Evaluation - Communication Primary Language: MONGOLIAN Communication: Yes: Within Normal Limits Oral Expression Ability: Yes: No Impairment - Speech Production Able to Make Needs Known: Yes: WNL Intelligibility: Yes: WNL - Speech Characteristics Voice Loudness: Normal Voice Pitch: Yes: Normal Voice Phonatory-based Quality: Yes: Normal Speech Pattern: Normal Speech Clarity: < 100% Nasal Resonance: Normal Articulation: Yes: Precise Rate of Speech: Intact - Language/Verbal Expression Able to Respond to Simple Queries: Yes: WNL Able to Communicate Wants and Needs: Yes: WNL Functional Communication Status: Yes: WNL Attention: Yes: Intact - Swallow Evaluation/Bedside Assessment Current Nutritional Intake: Regular, Thin Liquids Dentition: Yes: Missing Teeth (lower), Dental Appliance Upper Facial Symmetry at Rest: Facial Droop Right (slight?) Facial Symmetry on Retraction: Symmetrical Facial Movement: Controlled Against Resistance Opening: Normal Against Resistance Closing: Normal Pucker Lips: Normal Smile: Normal Lingual Movement: Normal Lingual Speed of Movement: Normal Lingual Movement Strgth Against Opposition: Normal Lingual Movement Characteristics: Normal Velopharyngeal Movement: Normal Laryngeal Elevation: WFL Laryngeal Movement: Able to Palpate Rate of Intake: WFL Bolus Size: WFL Labial Seal: WFL Chewing: WFL Oral Prep Time: WFL A-P Transit: WFL Pocketing: None Timing of Swallow: WFL Coughing/Throat Clear: No Change in Voice: No Recommendations - Speech Evaluation, Impression/Plan Impression: Speech/swallow overtly intact - Dysphagia Impressions/Plan Swallowing Skills: WF Dysphagia Impressions: Ongoing Evaluation *Silent aspiration: cannot be R/O at bedside Recommendations: Other (if signs of dysphagia reported or observed, mbs to further assess swallowing function) - Recommendations Diet Consistency: Regular Medication Administration: Whole with water Liquids: Thin Liquids
[2016-10-05] MEDS: ASPIRIN 81 MG CHEWABLE TABLETS PO SCH (10:58)
[2016-10-05] MEDS: AZITHROMYCIN IVPB 250 MG in DEXTROSE 5%-WATER - 250 ML IVPB SCH (10:58)
--- NOTE | 2016-10-05 11:47 | CONSULT ---
Consultation: REQUESTING PROVIDER: CONSULT REQUEST: We have been asked to medically evaluate this patient for (celia on ckd ). HISTORY OF PRESENT ILLNESS: patient states his breathing is same since yesterday and because breathing and pain he was unable to sleep. States swelling in legs is improving. REVIEW OF SYSTEMS: CONSTITUTIONAL: Absent: fever, chills, diaphoresis, HEENT: Absent: rhinorrhea, nasal congestion, throat pain, throat swelling, difficulty swallowing, mouth swelling, ear pain, eye pain, visual changes CARDIOVASCULAR: Absent: palpitations, irregular heart rate, lightheadedness, RESPIRATORY: present : difficulty in breathing GASTROINTESTINAL: Absent: abdominal pain, abdominal distension, nausea, vomiting, diarrhea, GENITOURINARY: Absent: dysuria, frequency, urgency, hesitancy, hematuria, flank pain, genital pain MUSCULOSKELETAL: Absent: myalgia, arthralgia, joint swelling, back pain, neck pain SKIN: Absent: rash, itching, pallor NEUROLOGIC: Absent: headache, focal weakness PSYCHIATRIC: Absent: anxiety, depression PHYSICAL EXAMINATION Vital Signs - 24 hr 10/04/16 10/04/16 10/04/16 14:41 16:57 21:00 Temperature 98.4 F 98.1 F Pulse Rate 115 H 97 H Respiratory 16 20 20 Rate Blood Pressure 112/66 138/95 O2 Sat by Pulse 90 L Oximetry (%) 10/04/16 10/05/16 22:00 06:00 Temperature 98.4 F Pulse Rate 98 H 93 H Respiratory 18 22 Rate Blood Pressure 126/88 144/87 O2 Sat by Pulse Oximetry (%) GENERAL: Awake, alert, and fully oriented, in no acute distress. HEAD: Normal with no signs of trauma. EYES: Pupils equal, round and reactive to light, EARS, NOSE, THROAT: Ears normal, nares patent, . NECK: Normal range of motion, supple without lymphadenopathy, LUNGS: Scattered rhonchi No accessory muscle use. HEART: Regular rate, s1s2 normal ABDOMEN: Soft, nontender, not distended, normoactive bowel sounds, no guarding, no rebound, LOWER EXTREMITIES: warm, well-perfused. peripheral edema 2+ Laboratory Results - last 24 hr 10/04/16 10/04/16 10/04/16 12:30 17:48 21:55 Sodium Potassium Chloride Carbon Dioxide Anion Gap BUN Creatinine Creat Clearance w eGFR POC Glucometer 305 130 Random Glucose Calcium Total Bilirubin AST ALT Alkaline Phosphatase Ammonia 29.74 Total Protein Albumin 10/05/16 10/05/16 06:15 06:31 Sodium 145 Potassium 4.4 Chloride 103 Carbon Dioxide 30 Anion Gap 12 BUN 77 H Creatinine 2.1 H Creat Clearance w eGFR 31.20 POC Glucometer 125 Random Glucose 111 H D Calcium 8.7 Total Bilirubin 0.3 D AST 23 ALT 18 Alkaline Phosphatase 41 L Ammonia Total Protein 6.5 Albumin 3.5 Active Medications Generic Name Dose Route Start Last Admin Trade Name Freq PRN Reason Stop Dose Admin Acetaminophen 650 mg 09/29/16 08:57 Tylenol - PO Q4H PRN FEVER OR PAIN Albuterol Sulfate 1 amp 09/28/16 16:35 10/04/16 10:35 Ventolin 0.083% Nebulizer Soln - NEB 1 amp Q4H PRN Administration SHORT OF BREATH/WHEEZING Albuterol Sulfate 1 amp 10/01/16 14:00 10/05/16 06:45 Ventolin 0.083% Nebulizer Soln - NEB 1 amp TIDR [facility] Administration Allopurinol 100 mg 09/29/16 10:00 10/05/16 09:29 Zyloprim - PO 100 mg DAILY [facility] Administration Aspirin 81 mg 09/29/16 10:00 10/05/16 10:58 Asa - PO 81 mg Q2D@1000 [facility] Administration Budesonide/Formoterol Fumarate 2 puff 09/28/16 22:00 10/05/16 09:32 Symbicort 160/4.5mcg - IH 2 puff BID [facility] Administration Diazepam 1 mg 10/04/16 15:23 Valium Injection - IVPUSH HS PRN AGITATION Diltiazem HCl 120 mg 09/29/16 10:00 10/05/16 09:31 Cardizem Cd - PO 120 mg DAILY [facility] Administration Docusate Sodium 100 mg 09/29/16 10:00 10/05/16 09:30 Colace - PO 100 mg BID [facility] Administration Fentanyl 1 patch 09/29/16 08:30 10/05/16 09:31 Duragesic 75mcg Patch - TD 1 patch Q72H [facility] Administration Furosemide 40 mg 10/02/16 10:00 10/05/16 09:29 Lasix Injection - IVPUSH 40 mg DAILY [facility] Administration Gemfibrozil 600 mg 09/29/16 10:00 10/05/16 09:30 Lopid - PO 600 mg BID [facility] Administration Guaifenesin/Codeine Phosphate 10 ml 10/02/16 15:26 10/04/16 23:51 Robitussin Ac - PO 10 ml Q8H PRN Administration COUGH Hydromorphone HCl 1 mg 10/04/16 15:22 10/05/16 09:32 Dilaudid Injection - IVPB 1 mg Q6H PRN Administration PAIN Azithromycin 250 mg/ Dextrose 250 mls @ 250 mls/hr 09/29/16 10:00 10/05/16 10: 58 IVPB 250 mls/hr DAILY [facility] Administration Insulin Aspart 1 vial 09/29/16 23:15 10/05/16 06:32 Novolog Vial Sliding Scale - SQ Not Given ACHS [facility] Protocol Insulin Aspart 25 units 10/01/16 07:00 10/05/16 06:32 Novolog Mix 70/30 Vial SQ 25 units BIDAC [facility] Administration Lactulose 10 gm 09/29/16 10:00 10/05/16 09:30 Cephulac (Oral Use) PO 10 gm DAILY [facility] Administration Methylprednisolone Sodium Succinate 40 mg 10/04/16 10:00 10/05/16 09:29 Solu-Medrol - IVPB 40 mg BID [facility] Administration Metoclopramide HCl 5 mg 09/29/16 11:00 10/05/16 06:31 Reglan - PO 5 mg TIDAC [facility] Administration Miscellaneous 1 each 09/29/16 09:01 10/05/16 09:42 Duragesic Patch Waste TD 1 each PRN PRN Administration Ranitidine HCl 300 mg 09/29/16 10:00 10/05/16 09:29 Zantac - PO 300 mg DAILY [facility] Administration Roflumilast 500 mcg 10/02/16 10:50 10/05/16 09:32 Daliresp - PO 500 mcg DAILY [facility] Administration Senna 2 tab 09/29/16 08:30 09/29/16 22:32 Senna - PO 2 tab HS PRN Administration CONSTIPATION Sitagliptin Phosphate 25 mg 09/29/16 07:00 10/05/16 06:32 Januvia - PO 25 mg DAILY@0700 [facility] Administration Sodium Chloride 2 spray 10/03/16 14:40 10/04/16 22:21 [place] Nasal [place] - NS 2 sprays BID PRN Administration NASAL CONGESTION Tamsulosin HCl 0.4 mg 09/29/16 10:00 10/05/16 09:30 Flomax - PO 0.4 mg BID [facility] Administration Terazosin HCl 5 mg 09/29/16 22:00 10/04/16 21:57 Hytrin - PO 5 mg HS [facility] Administration Tiotropium [place] 1 puff 09/28/16 17:30 10/05/16 09:32 Spiriva - IH 1 puff DAILY [facility] Administration Zolpidem Tartrate 5 mg 10/04/16 23:17 10/04/16 23:51 Ambien - PO 5 mg HS PRN Administration INSOMNIA ASSESSMENT/PLAN: impression copd excerbration HTN DM celia on ckd CHF LOW BACK PAIN H/O PANCREATITIS PLAN renal function improving, creatinine decreased to 2.1 ( base line cr 1.7) continue with lasix 40 mg iv daily continue to hold potassium supplement continue to hold losartan monitor urine output daily weight keep legs elevated while sitting taper steroids as tolerated repeat labs in morning Dispo: We will continue to follow the patient. Thank you for this consultative opportunity. Visit type - Emergency Visit Emergency Visit: Yes ED Registration Date: 09/28/16 Care time: The patient presented to the Emergency Department on the above date and was hospitalized for further evaluation of their emergent condition. - New Patient This patient is new to me today: No - Critical Care Critical Care patient: No
--- NOTE | 2016-10-05 15:27 | CON.PSY ---
Psychiatry Consult Chief Complaint: i feel terrible physically. Symptoms: reports: Anxiety - Previous Psychiatric Treatment Outpatient: None Inpatient: None - Previous Substance Abuse Treatment Outpatient: None Inpatient: None - Current Medications Current Medications: Active Medications Acetaminophen (Tylenol -) 650 mg PO Q4H PRN PRN Reason: FEVER OR PAIN Albuterol Sulfate (Ventolin 0.083% Nebulizer Soln -) 1 amp NEB Q4H PRN PRN Reason: SHORT OF BREATH/WHEEZING Last Admin: 10/05/16 10:20 Dose: 1 amp Albuterol Sulfate (Ventolin 0.083% Nebulizer Soln -) 1 amp NEB TIDR [facility] Last Admin: 10/05/16 14:38 Dose: 1 amp Allopurinol (Zyloprim -) 100 mg PO DAILY [facility] Last Admin: 10/05/16 09:29 Dose: 100 mg Aspirin (Asa -) 81 mg PO Q2D@1000 [facility] Last Admin: 10/05/16 10:58 Dose: 81 mg Budesonide/Formoterol Fumarate (Symbicort 160/4.5mcg -) 2 puff IH BID [facility] Last Admin: 10/05/16 09:32 Dose: 2 puff Diazepam (Valium Injection -) 1 mg IVPUSH HS PRN PRN Reason: AGITATION Diltiazem HCl (Cardizem Cd -) 120 mg PO DAILY [facility] Last Admin: 10/05/16 09:31 Dose: 120 mg Docusate Sodium (Colace -) 100 mg PO BID [facility] Last Admin: 10/05/16 09:30 Dose: 100 mg Fentanyl (Duragesic 75mcg Patch -) 1 patch TD Q72H [facility] Last Admin: 10/05/16 09:31 Dose: 1 patch Furosemide (Lasix Injection -) 40 mg IVPUSH DAILY [facility] Last Admin: 10/05/16 09:29 Dose: 40 mg Gemfibrozil (Lopid -) 600 mg PO BID [facility] Last Admin: 10/05/16 09:30 Dose: 600 mg Guaifenesin/Codeine Phosphate (Robitussin Ac -) 10 ml PO Q8H PRN PRN Reason: COUGH Last Admin: 10/04/16 23:51 Dose: 10 ml Hydromorphone HCl (Dilaudid Injection -) 1 mg IVPB Q6H PRN PRN Reason: PAIN Last Admin: 10/05/16 09:32 Dose: 1 mg Azithromycin 250 mg/ Dextrose 250 mls @ 250 mls/hr IVPB DAILY [facility] Last Admin: 10/05/16 10:58 Dose: 250 mls/hr Insulin Aspart (Novolog Vial Sliding Scale -) 1 vial SQ ACHS [facility] PRN Reason: Protocol Last Admin: 10/05/16 12:34 Dose: Not Given Insulin Aspart (Novolog Mix 70/30 Vial) 25 units SQ BIDAC [facility] Last Admin: 10/05/16 06:32 Dose: 25 units Lactulose (Cephulac (Oral Use)) 10 gm PO DAILY [facility] Last Admin: 10/05/16 09:30 Dose: 10 gm Methylprednisolone Sodium Succinate (Solu-Medrol -) 40 mg IVPB BID [facility] Last Admin: 10/05/16 09:29 Dose: 40 mg Metoclopramide HCl (Reglan -) 5 mg PO TIDAC [facility] Last Admin: 10/05/16 12:32 Dose: 5 mg Miscellaneous (Duragesic Patch Waste) 1 each TD PRN PRN Last Admin: 10/05/16 09:42 Dose: 1 each Ranitidine HCl (Zantac -) 300 mg PO DAILY [facility] Last Admin: 10/05/16 09:29 Dose: 300 mg Roflumilast (Daliresp -) 500 mcg PO DAILY [facility] Last Admin: 10/05/16 09:32 Dose: 500 mcg Senna (Senna -) 2 tab PO HS PRN PRN Reason: CONSTIPATION Last Admin: 09/29/16 22:32 Dose: 2 tab Sitagliptin Phosphate (Januvia -) 25 mg PO DAILY@0700 [facility] Last Admin: 10/05/16 06:32 Dose: 25 mg Sodium Chloride ([place] Nasal [place] -) 2 spray NS BID PRN PRN Reason: NASAL CONGESTION Last Admin: 10/04/16 22:21 Dose: 2 sprays Tamsulosin HCl (Flomax -) 0.4 mg PO BID [facility] Last Admin: 10/05/16 09:30 Dose: 0.4 mg Terazosin HCl (Hytrin -) 5 mg PO HS [facility] Last Admin: 10/04/16 21:57 Dose: 5 mg Tiotropium [place] (Spiriva -) 1 puff IH DAILY [facility] Last Admin: 10/05/16 09:32 Dose: 1 puff Zolpidem Tartrate (Ambien -) 5 mg PO HS PRN PRN Reason: INSOMNIA Last Admin: 10/04/16 23:51 Dose: 5 mg - Allergies Allergies: Allergies Allergy/AdvReac Type Severity Reaction Status Date / Time No Known Drug Allergies Allergy Verified 05/04/16 11:01 HOT PEPPER Allergy SNEEZING Uncoded 05/04/16 11:01 - Current Living Status Usual Living Arrangement: Alone - Current Mental Status Evaluation Appearance: Well Groomed Attitude: Cooperative - Affect Affect: Full Range Appropriateness: Appropriate to Content - Mood Mood: Anxious - Speech/Language Expressive: Coherent Receptive: Age Appropriate Comprehension of Spoken Words - Psychomotor Activity Psychomotor Activity: Normal - Thought Process Thought Process: Intact - Thought Content Hallucinations: Absent Delusions: Absent - Self Perception Self Perception: No Impairment - Cognition Attention: Alert Orientation: Time Memory, Immediate Recall: Intact Memory, Short Term: 2/3 Memory, Remote with Promptin/3 - Concentration Serial Sevens Intact: No Simple Calculations Intact: No - Abstraction Proverb Interpretation: Intact Judgement: Intact - Insight Insight: Intact - Impulse Control Impulse Control: Good Control - Suicidal Ideation Suicidal Ideation: No - Homicidal Ideation Homicidal Ideation: No Assessment/Plan add Buspar 10 mg po bid
--- NOTE | 2016-10-05 15:32 | PN ---
Progress Note (short form) - Note Progress Note: Drowsy but easily arousable. Breathing feels about the same. Still with some congested cough. No CP. Intake & Output 10/02/16 10/03/16 10/04/16 10/05/16 23:59 23:59 23:59 23:59 Intake Total 0364 227 7255 150 Balance 2114 200 6674 150 Weight 239 lb 6.4 oz 236 lb 11.2 oz 236 lb 1.6 oz 234 lb 9.6 oz Last Vital Signs Temp Pulse Resp BP Pulse Ox 97.7 F 89 20 146/55 95 10/05/16 09:35 10/05/16 10:45 10/05/16 09:35 10/05/16 09:35 10/05/16 10:45 Active Medications Acetaminophen (Tylenol -) 650 mg PO Q4H PRN PRN Reason: FEVER OR PAIN Albuterol Sulfate (Ventolin 0.083% Nebulizer Soln -) 1 amp NEB Q4H PRN PRN Reason: SHORT OF BREATH/WHEEZING Last Admin: 10/05/16 10:20 Dose: 1 amp Albuterol Sulfate (Ventolin 0.083% Nebulizer Soln -) 1 amp NEB TIDR [facility] Last Admin: 10/05/16 14:38 Dose: 1 amp Allopurinol (Zyloprim -) 100 mg PO DAILY [facility] Last Admin: 10/05/16 09:29 Dose: 100 mg Aspirin (Asa -) 81 mg PO Q2D@1000 [facility] Last Admin: 10/05/16 10:58 Dose: 81 mg Budesonide/Formoterol Fumarate (Symbicort 160/4.5mcg -) 2 puff IH BID [facility] Last Admin: 10/05/16 09:32 Dose: 2 puff Buspirone HCl (Buspar -) 10 mg PO BID [facility] Diazepam (Valium Injection -) 1 mg IVPUSH HS PRN PRN Reason: AGITATION Diltiazem HCl (Cardizem Cd -) 120 mg PO DAILY [facility] Last Admin: 10/05/16 09:31 Dose: 120 mg Docusate Sodium (Colace -) 100 mg PO BID [facility] Last Admin: 10/05/16 09:30 Dose: 100 mg Fentanyl (Duragesic 75mcg Patch -) 1 patch TD Q72H [facility] Last Admin: 10/05/16 09:31 Dose: 1 patch Furosemide (Lasix Injection -) 40 mg IVPUSH DAILY [facility] Last Admin: 10/05/16 09:29 Dose: 40 mg Gemfibrozil (Lopid -) 600 mg PO BID [facility] Last Admin: 10/05/16 09:30 Dose: 600 mg Guaifenesin/Codeine Phosphate (Robitussin Ac -) 10 ml PO Q8H PRN PRN Reason: COUGH Last Admin: 10/04/16 23:51 Dose: 10 ml Hydromorphone HCl (Dilaudid Injection -) 1 mg IVPB Q6H PRN PRN Reason: PAIN Last Admin: 10/05/16 09:32 Dose: 1 mg Azithromycin 250 mg/ Dextrose 250 mls @ 250 mls/hr IVPB DAILY [facility] Last Admin: 10/05/16 10:58 Dose: 250 mls/hr Insulin Aspart (Novolog Vial Sliding Scale -) 1 vial SQ ACHS JOSE LUIS PRN Reason: Protocol Last Admin: 10/05/16 12:34 Dose: Not Given Insulin Aspart (Novolog Mix 70/30 Vial) 25 units SQ BIDAC [facility] Last Admin: 10/05/16 06:32 Dose: 25 units Lactulose (Cephulac (Oral Use)) 10 gm PO DAILY [facility] Last Admin: 10/05/16 09:30 Dose: 10 gm Methylprednisolone Sodium Succinate (Solu-Medrol -) 40 mg IVPB BID [facility] Last Admin: 10/05/16 09:29 Dose: 40 mg Metoclopramide HCl (Reglan -) 5 mg PO TIDAC [facility] Last Admin: 10/05/16 12:32 Dose: 5 mg Miscellaneous (Duragesic Patch Waste) 1 each TD PRN PRN Last Admin: 10/05/16 09:42 Dose: 1 each Ranitidine HCl (Zantac -) 300 mg PO DAILY [facility] Last Admin: 10/05/16 09:29 Dose: 300 mg Roflumilast (Daliresp -) 500 mcg PO DAILY [facility] Last Admin: 10/05/16 09:32 Dose: 500 mcg Senna (Senna -) 2 tab PO HS PRN PRN Reason: CONSTIPATION Last Admin: 09/29/16 22:32 Dose: 2 tab Sitagliptin Phosphate (Januvia -) 25 mg PO DAILY@0700 [facility] Last Admin: 10/05/16 06:32 Dose: 25 mg Sodium Chloride ([place]al [place] -) 2 spray NS BID PRN PRN Reason: NASAL CONGESTION Last Admin: 10/04/16 22:21 Dose: 2 sprays Tamsulosin HCl (Flomax -) 0.4 mg PO BID [facility] Last Admin: 10/05/16 09:30 Dose: 0.4 mg Terazosin HCl (Hytrin -) 5 mg PO HS [facility] Last Admin: 10/04/16 21:57 Dose: 5 mg Tiotropium [place] (Spiriva -) 1 puff IH DAILY [facility] Last Admin: 10/05/16 09:32 Dose: 1 puff Zolpidem Tartrate (Ambien -) 5 mg PO HS PRN PRN Reason: INSOMNIA Last Admin: 10/04/16 23:51 Dose: 5 mg General: Mildly tachypneic at rest Cardiovascular: Yes: Regular Rate and Rhythm Respiratory: Yes: Scattered rhonchi, Minimal expiratory wheezing Gastrointestinal: Yes: Normal Bowel Sounds, Soft Edema: Yes Edema: LLE: 2+, RLE: 2+ Labs: Laboratory Results - last 24 hr 10/04/16 10/04/16 10/05/16 17:48 21:55 06:15 Sodium 145 Potassium 4.4 Chloride 103 Carbon Dioxide 30 Anion Gap 12 BUN 77 H Creatinine 2.1 H Creat Clearance w eGFR 31.20 POC Glucometer 305 130 Random Glucose 111 H D Calcium 8.7 Total Bilirubin 0.3 D AST 23 ALT 18 Alkaline Phosphatase 41 L Total Protein 6.5 Albumin 3.5 10/05/16 10/05/16 06:31 12:33 Sodium Potassium Chloride Carbon Dioxide Anion Gap BUN Creatinine Creat Clearance w eGFR POC Glucometer 125 137 Random Glucose Calcium Total Bilirubin AST ALT Alkaline Phosphatase Total Protein Albumin Problem List - Problems (1) COPD exacerbation Assessment/Plan: Code(s): J44.1 - CHRONIC OBSTRUCTIVE PULMONARY DISEASE W (ACUTE) EXACERBATION (2) CKD (chronic kidney disease) Assessment/Plan: Code(s): N18.9 - CHRONIC KIDNEY DISEASE, UNSPECIFIED Qualifiers: Chronic kidney disease stage: unspecified stage Qualified Code(s): N18.9 - Chronic kidney disease, unspecified (3) Diabetes mellitus, insulin dependent (IDDM), uncontrolled Assessment/Plan: Code(s): E10.65 - TYPE 1 DIABETES MELLITUS WITH HYPERGLYCEMIA Qualifiers: Diabetes mellitus complication status: without complication Qualified Code(s): E10.9 - Type 1 diabetes mellitus without complications (4) CHF (congestive heart failure) Assessment/Plan: Code(s): I50.9 - HEART FAILURE, UNSPECIFIED Qualifiers: Congestive heart failure type: diastolic (5) Back pain Assessment/Plan: Code(s): M54.9 - DORSALGIA, UNSPECIFIED PLAN: Symbicort BID Spiriva O2 as needed BD TX Trial of Prednisone in the AM Lasix Zithromax Nasal spray No smoking Dr Amaral
--- NOTE | 2016-10-05 15:50 | CONSULT ---
Consult Detox [facility] Reason for Current Admission/Consult: I was asked to see pt. for opioid dependence Referred by:: Jan Ordoñez MD - History History of Present Illness: 71 y/o man on percocet because of herniated C-spine disc.Pt. denies abusing his meds and wants to continue percocet & be referred to pain management. 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 - History Source History Provided By: Patient, Medical Record Limitations to Obtaining History: No Limitations - Alcohol/Substance Use Hx Alcohol Use: No - Current Drug/Alcohol Use Percocet Route: Oral Frequency: Daily - Past Medical History ADMISSIONS COORDINATOR: Yes: Migraine Cardio/Vascular: Yes: CHF, HTN, Hyperlipdemia Pulmonary: Yes: COPD, O2 Dependent Gastrointestinal: Yes: GERD Renal/: Yes: Renal Inusuff, BPH, Cancer, Hematuria, UTI, Other (CKD) Psych: Yes: Anxiety Musculoskeletal: Yes: Chronic low back pain, Osteoarthritis Endocrine: Yes: Diabetes Mellitus - Past Surgical History Past Surgical History: Yes: Colonoscopy (Done last December) negative for significant pathology) - Significant Medical Findings: Laboratory Last Values WBC 12.7 K/mm3 (4.0-10.0) H 10/04/16 06:20 RBC 3.46 M/mm3 (4.00-5.60) L 10/04/16 06:20 Hgb 10.5 GM/dL (11.7-16.9) L 10/04/16 06:20 Hct 31.9 % (35.4-49) L 10/04/16 06:20 MCV 92.4 fl (80-96) 10/04/16 06:20 MCHC 32.9 g/dl (32.0-35.9) 10/04/16 06:20 RDW 16.0 % (11.9-15.9) H 10/04/16 06:20 Plt Count 204 K/MM3 (134-434) 10/04/16 06:20 MPV 10.0 fl (7.5-11.1) 10/04/16 06:20 Neutrophils % 93.0 % (42.8-82.8) H 10/04/16 06:20 Lymphocytes % 5.0 % (8-40) L D 10/04/16 06:20 Monocytes % 2.0 % (3.8-10.2) L 10/04/16 06:20 Eosinophils % 0.0 % (0-4.5) 10/01/16 07:00 Basophils % 0.1 % (0-2.0) D 10/01/16 07:00 Differential Comment Manual diff done 10/04/16 06:20 Basophilic Stippling 1+ 10/04/16 06:20 Puncture Site Right radial 09/28/16 16:30 ABG pH 7.33 (7.35-7.45) L 09/28/16 16:30 ABG pCO2 at Pt Temp 44.9 mmHg (35-45) 09/28/16 16:30 ABG pO2 at Pt Temp 76.3 mmHg (70-100) 09/28/16 16:30 ABG HCO3 23.0 meq/L (22-26) 09/28/16 16:30 ABG O2 Sat (Measured) 91.9 % (90-98.9) 09/28/16 16:30 ABG O2 Content 13.1 % vol (15-22) L 09/28/16 16:30 ABG Base Excess -2.3 meq/l (-2-2) L 09/28/16 16:30 Jack Test Positive 09/28/16 16:30 VBG pH 7.26 (7.31-7.41) L 09/28/16 12:22 POC VBG pCO2 62.9 mmHg (41-51) H* D 09/28/16 12:22 POC VBG pO2 29.5 mmHg (30-40) L D 09/28/16 12:22 O2 Delivery Device Nasal o2 09/28/16 16:30 Oxygen Flow Rate 3l 09/28/16 16:30 Sodium 145 mmol/L (136-145) 10/05/16 06:15 Potassium 4.4 mmol/L (3.5-5.1) 10/05/16 06:15 Chloride 103 mmol/L (98-107) 10/05/16 06:15 Carbon Dioxide 30 mmol/L (21-32) 10/05/16 06:15 Anion Gap 12 (8-16) 10/05/16 06:15 BUN 77 mg/dL (7-18) H 10/05/16 06:15 Creatinine 2.1 mg/dL (0.7-1.3) H 10/05/16 06:15 Creat Clearance w eGFR 31.20 (>60) 10/05/16 06:15 POC Glucometer 137 UNITS (()) 10/05/16 12:33 Random Glucose 111 mg/dL (74-106) H D 10/05/16 06:15 Calcium 8.7 mg/dL (8.5-10.1) 10/05/16 06:15 Total Bilirubin 0.3 mg/dL (0.2-1.0) D 10/05/16 06:15 AST 23 U/L (15-37) 10/05/16 06:15 ALT 18 U/L (12-78) 10/05/16 06:15 Alkaline Phosphatase 41 U/L (45-117) L 10/05/16 06:15 Ammonia 29.74 umol/L (11-32) 10/04/16 12:30 Creatine Kinase 486 IU/L (39-308) H D 09/28/16 12:20 Creatine Kinase Index 0.8 % (0.0-5.0) 09/28/16 12:20 CK-MB (CK-2) 3.891 ng/ml (0.5-3.6) H 09/28/16 12:20 CK-MB (CK-2) Rel Index Cancelled 09/28/16 12:20 Troponin I 0.02 ng/ml (0.00-0.05) 09/28/16 12:20 B-Natriuretic Peptide 1286.53 pg/ml (5-125) H 09/28/16 12:12 Total Protein 6.5 g/dl (6.4-8.2) 10/05/16 06:15 Albumin 3.5 g/dl (3.4-5.0) 10/05/16 06:15 Urine Color Straw 10/01/16 22:10 Urine Appearance Clear 10/01/16 22:10 Urine pH 5.0 (5.0-8.0) 10/01/16 22:10 Ur Specific [place] 1.011 (1.001-1.035) 10/01/16 22:10 Urine Protein Negative (NEGATIVE) 10/01/16 22:10 Urine Glucose (UA) Negative (NEGATIVE) 10/01/16 22:10 Urine Ketones Negative (NEGATIVE) 10/01/16 22:10 Urine Blood Negative (NEGATIVE) 10/01/16 22:10 Urine Nitrite Negative (NEGATIVE) 10/01/16 22:10 Urine Bilirubin Negative (NEGATIVE) 10/01/16 22:10 Urine Urobilinogen Negative E.U./dl (0.2-1.0) 10/01/16 22:10 Ur Leukocyte Esterase Negative (NEGATIVE) 10/01/16 22:10 Ur Random Sodium 51 MMOL/L 10/01/16 22:10 Ur Random Potassium 27.8 MMOL/L 10/01/16 22:10 Ur Random Chloride 69 MMOL/L 10/01/16 22:10 labs noted Assessment Plan - Diagnosis (1) Opioid dependence in controlled environment Status: Chronic - Plan Plan: Pt. wants to be referred to pain management, attending will F/U.
--- NOTE | 2016-10-05 19:58 | PN ---
Teaching Attending Note Name of Resident: Walter Wang (Nephrology) ATTENDING PHYSICIAN STATEMENT I saw and evaluated the patient. I reviewed the resident's note and discussed the case with the resident. I agree with the resident's findings and plan as documented. Current Medications Generic Name Dose Route Start Last Admin Trade Name Freq PRN Reason Stop Dose Admin Acetaminophen 650 mg 09/29/16 08:57 Tylenol - PO Q4H PRN FEVER OR PAIN Albuterol Sulfate 1 amp 09/28/16 16:35 10/05/16 17:20 Ventolin 0.083% Nebulizer Soln - NEB 1 amp Q4H PRN Administration SHORT OF BREATH/WHEEZING Albuterol Sulfate 1 amp 10/01/16 14:00 10/05/16 14:38 Ventolin 0.083% Nebulizer Soln - NEB 1 amp TIDR JOSE LUIS Administration Allopurinol 100 mg 09/29/16 10:00 10/05/16 09:29 Zyloprim - PO 100 mg DAILY JOSE LUIS Administration Aspirin 81 mg 09/29/16 10:00 10/05/16 10:58 Asa - PO 81 mg Q2D@1000 JOSE LUIS Administration Budesonide/Formoterol Fumarate 2 puff 09/28/16 22:00 10/05/16 09:32 Symbicort 160/4.5mcg - IH 2 puff BID JOSE LUIS Administration Buspirone HCl 10 mg 10/05/16 22:00 Buspar - PO BID JOSE LUIS Diazepam 1 mg 10/04/16 15:23 Valium Injection - IVPUSH HS PRN AGITATION Diltiazem HCl 120 mg 09/29/16 10:00 10/05/16 09:31 Cardizem Cd - PO 120 mg DAILY JOSE LUIS Administration Docusate Sodium 100 mg 09/29/16 10:00 10/05/16 09:30 Colace - PO 100 mg BID JOSE LUIS Administration Fentanyl 1 patch 09/29/16 08:30 10/05/16 09:31 Duragesic 75mcg Patch - TD 1 patch Q72H JOSE LUIS Administration Furosemide 40 mg 10/02/16 10:00 10/05/16 09:29 Lasix Injection - IVPUSH 40 mg DAILY JOSE LUIS Administration Gemfibrozil 600 mg 09/29/16 10:00 10/05/16 09:30 Lopid - PO 600 mg BID JOSE LUIS Administration Guaifenesin/Codeine Phosphate 10 ml 10/02/16 15:26 10/04/16 23:51 Robitussin Ac - PO 10 ml Q8H PRN Administration COUGH Hydromorphone HCl 1 mg 10/04/16 15:22 10/05/16 18:10 Dilaudid Injection - IVPB 1 mg Q6H PRN Administration PAIN Azithromycin 250 mg/ Dextrose 250 mls @ 250 mls/hr 09/29/16 10:00 10/05/16 10: 58 IVPB 250 mls/hr DAILY JOSE LUIS Administration Insulin Aspart 1 vial 09/29/16 23:15 10/05/16 18:01 Novolog Vial Sliding Scale - SQ 8 unit ACHS JOSE LUIS Administration Protocol Insulin Aspart 25 units 10/01/16 07:00 10/05/16 18:01 Novolog Mix 70/30 Vial SQ 25 units BIDAC JOSE LUIS Administration Lactulose 10 gm 09/29/16 10:00 10/05/16 09:30 Cephulac (Oral Use) PO 10 gm DAILY JOSE LUIS Administration Methylprednisolone Sodium Succinate 40 mg 10/04/16 10:00 10/05/16 09:29 Solu-Medrol - IVPB 40 mg BID JOSE LUIS Administration Metoclopramide HCl 5 mg 09/29/16 11:00 10/05/16 18:01 Reglan - PO 5 mg TIDAC JOSE LUIS Administration Miscellaneous 1 each 09/29/16 09:01 10/05/16 09:42 Duragesic Patch Waste TD 1 each PRN PRN Administration Ranitidine HCl 300 mg 09/29/16 10:00 10/05/16 09:29 Zantac - PO 300 mg DAILY JOSE LUIS Administration Roflumilast 500 mcg 10/02/16 10:50 10/05/16 09:32 Daliresp - PO 500 mcg DAILY JOSE LUIS Administration Senna 2 tab 09/29/16 08:30 09/29/16 22:32 Senna - PO 2 tab HS PRN Administration CONSTIPATION Sitagliptin Phosphate 25 mg 09/29/16 07:00 10/05/16 06:32 Januvia - PO 25 mg DAILY@0700 JOSE LUIS Administration Sodium Chloride 2 spray 10/03/16 14:40 10/04/16 22:21 [place] Nasal [place] - NS 2 sprays BID PRN Administration NASAL CONGESTION Tamsulosin HCl 0.4 mg 09/29/16 10:00 10/05/16 09:30 Flomax - PO 0.4 mg BID JOSE LUIS Administration Terazosin HCl 5 mg 09/29/16 22:00 10/04/16 21:57 Hytrin - PO 5 mg HS JOSE LUIS Administration Tiotropium [place] 1 puff 09/28/16 17:30 10/05/16 09:32 Spiriva - IH 1 puff DAILY JOSE LUIS Administration Zolpidem Tartrate 5 mg 10/04/16 23:17 10/04/16 23:51 Ambien - PO 5 mg HS PRN Administration INSOMNIA Last Vital Signs Temp Pulse Resp BP Pulse Ox 98.2 F 102 H 20 164/70 95 10/05/16 17:12 10/05/16 17:12 10/05/16 17:12 10/05/16 17:12 10/05/16 10:45 cardio s1s2 reg pulm clear GI soft, obese ext edema neuro awake Impression 1. CKD 2. DM 3. HTN 4. CHF 5. COPD 6. fluid overload Plan - renal function is improving - will restart losartan at lower dose - cont with IV lasix - taper steroids as tolerated - baseline flute grinder is about 1.7 - hold potassium supplements - repeat labs in am - avoid hypotension
[2016-10-05] MEDS: busPIRone HCL 5 MG TABLET PO SCH (22:06)
[2016-10-05] MEDS: TERAZOSIN HCL 5 MG CAPSULE PO SCH (22:07)
[2016-10-06] MEDS: ZOLPIDEM TARTRATE 5 MG TABLET PO PRN (00:02)
[2016-10-06] MEDS: HYDROmorphone HCL CARPU-JECT 1 MG/1 ML DISP.SYRIN IVPB PRN ×2 (00:05→09:52)
[2016-10-06] MEDS: guaiFENesin/CODEINE 5 ML UNIT-DOSE CUPS PO PRN (00:42)
[2016-10-06] MEDS: INSULIN (NOVOLOG MIX 70/30) 100 UNITS/ML MDV SQ SCH ×2 (06:34→17:13)
[2016-10-06] MEDS: sitaGLIPtin PHOSPHATE 25 MG TABLET (FP) PO SCH (06:34)
[2016-10-06] MEDS: INSULIN SLIDING SCALE (NOVOLOG) 1 VIAL SQ SCH ×4 (06:34→22:18)
[2016-10-06] MEDS: METOCLOPRAMIDE HCL 10 MG TABLET (FP) PO SCH ×3 (06:35→17:13)
[2016-10-06] MEDS: ALBUTEROL SO4 0.083% IH SOL 2.5 MG/3 ML VIAL.NEB. NEB SCH (06:45)
[2016-10-06 08:15] LABS: BASOPHIL 0.1 % (0-2.0); EOSINOPHIL 0.1 % (0-4.5); MCH 29.8 pg (25.7-33.7); MCHC 32.2 g/dl (32.0-35.9); MEAN CELL VOLUME 92.6 fl (80-96); MEAN PLT VOLUME 10.3 fl (7.5-11.1); NEUTROPHILS 78.9 % (42.8-82.8); PLATELET COUNT 180 K/MM3 (134-434); RDW 16.2 % (11.9-15.9); WHITE BLOOD COUNT 14.2 K/mm3 (4.0-10.0)
[2016-10-06 09:19] LABS: ALBUMIN 3.2 g/dl (3.4-5.0); BILIRUBIN,TOTAL 0.4 mg/dL (0.2-1.0); CALCIUM 8.8 mg/dL (8.5-10.1); CREATININE 2.4 mg/dL (0.7-1.3); TOT PROT 6.1 g/dl (6.4-8.2)
--- NOTE | 2016-10-06 09:43 | PN ---
Progress Note (short form) - Note Progress Note: Drowsy but easily arousable. Breathing feels about the same. Some congested cough. No CP. Intake & Output 10/03/16 10/04/16 10/05/16 10/06/16 23:59 23:59 23:59 23:59 Intake Total 500 1050 650 150 Balance 500 1050 650 150 Weight 236 lb 11.2 oz 236 lb 1.6 oz 234 lb 9.6 oz 236 lb 3 oz Last Vital Signs Temp Pulse Resp BP Pulse Ox 98.4 F 100 H 20 143/70 95 10/06/16 09:30 10/06/16 09:30 10/06/16 09:30 10/06/16 09:30 10/05/16 21:00 Active Medications Acetaminophen (Tylenol -) 650 mg PO Q4H PRN PRN Reason: FEVER OR PAIN Albuterol Sulfate (Ventolin 0.083% Nebulizer Soln -) 1 amp NEB Q4H PRN PRN Reason: SHORT OF BREATH/WHEEZING Last Admin: 10/05/16 17:20 Dose: 1 amp Albuterol Sulfate (Ventolin 0.083% Nebulizer Soln -) 1 amp NEB TIDR [facility] Last Admin: 10/06/16 06:45 Dose: 1 amp Allopurinol (Zyloprim -) 100 mg PO DAILY [facility] Last Admin: 10/05/16 09:29 Dose: 100 mg Aspirin (Asa -) 81 mg PO Q2D@1000 [facility] Last Admin: 10/05/16 10:58 Dose: 81 mg Budesonide/Formoterol Fumarate (Symbicort 160/4.5mcg -) 2 puff IH BID [facility] Last Admin: 10/05/16 22:08 Dose: 2 puff Buspirone HCl (Buspar -) 10 mg PO BID [facility] Last Admin: 10/05/16 22:06 Dose: 10 mg Diazepam (Valium Injection -) 1 mg IVPUSH HS PRN PRN Reason: AGITATION Diltiazem HCl (Cardizem Cd -) 120 mg PO DAILY [facility] Last Admin: 10/05/16 09:31 Dose: 120 mg Docusate Sodium (Colace -) 100 mg PO BID [facility] Last Admin: 10/05/16 22:07 Dose: 100 mg Fentanyl (Duragesic 75mcg Patch -) 1 patch TD Q72H [facility] Last Admin: 10/05/16 09:31 Dose: 1 patch Furosemide (Lasix Injection -) 40 mg IVPUSH DAILY [facility] Last Admin: 10/05/16 09:29 Dose: 40 mg Gemfibrozil (Lopid -) 600 mg PO BID [facility] Last Admin: 10/05/16 22:07 Dose: 600 mg Guaifenesin/Codeine Phosphate (Robitussin Ac -) 10 ml PO Q8H PRN PRN Reason: COUGH Last Admin: 10/06/16 00:42 Dose: 10 ml Hydromorphone HCl (Dilaudid Injection -) 1 mg IVPB Q6H PRN PRN Reason: PAIN Last Admin: 10/06/16 00:05 Dose: 1 mg Azithromycin 250 mg/ Dextrose 250 mls @ 250 mls/hr IVPB DAILY [facility] Last Admin: 10/05/16 10:58 Dose: 250 mls/hr Insulin Aspart (Novolog Vial Sliding Scale -) 1 vial SQ ACHS [facility] PRN Reason: Protocol Last Admin: 10/06/16 06:34 Dose: Not Given Insulin Aspart (Novolog Mix 70/30 Vial) 25 units SQ BIDAC [facility] Last Admin: 10/06/16 06:34 Dose: Not Given Lactulose (Cephulac (Oral Use)) 10 gm PO DAILY [facility] Last Admin: 10/05/16 09:30 Dose: 10 gm Losartan Potassium (Cozaar -) 25 mg PO DAILY [facility] Methylprednisolone Sodium Succinate (Solu-Medrol -) 40 mg IVPB BID [facility] Last Admin: 10/05/16 22:05 Dose: 40 mg Metoclopramide HCl (Reglan -) 5 mg PO TIDAC [facility] Last Admin: 10/06/16 06:35 Dose: 5 mg Miscellaneous (Duragesic Patch Waste) 1 each TD PRN PRN Last Admin: 10/05/16 09:42 Dose: 1 each Ranitidine HCl (Zantac -) 300 mg PO DAILY [facility] Last Admin: 10/05/16 09:29 Dose: 300 mg Roflumilast (Daliresp -) 500 mcg PO DAILY [facility] Last Admin: 10/05/16 09:32 Dose: 500 mcg Senna (Senna -) 2 tab PO HS PRN PRN Reason: CONSTIPATION Last Admin: 09/29/16 22:32 Dose: 2 tab Sitagliptin Phosphate (Januvia -) 25 mg PO DAILY@0700 [facility] Last Admin: 10/06/16 06:34 Dose: Not Given Sodium Chloride ([place] Nasal [place] -) 2 spray NS BID PRN PRN Reason: NASAL CONGESTION Last Admin: 10/04/16 22:21 Dose: 2 sprays Tamsulosin HCl (Flomax -) 0.4 mg PO BID [facility] Last Admin: 10/05/16 22:07 Dose: 0.4 mg Terazosin HCl (Hytrin -) 5 mg PO HS [facility] Last Admin: 10/05/16 22:07 Dose: 5 mg Tiotropium [place] (Spiriva -) 1 puff IH DAILY [facility] Last Admin: 10/05/16 09:32 Dose: 1 puff Zolpidem Tartrate (Ambien -) 5 mg PO HS PRN PRN Reason: INSOMNIA Last Admin: 10/06/16 00:02 Dose: 5 mg General: Drowsy, NAD Cardiovascular: Yes: Regular Rate and Rhythm Respiratory: Yes: Scattered rhonchi, Minimal expiratory wheezing Gastrointestinal: Yes: Normal Bowel Sounds, Soft Edema: Yes Edema: LLE: 2+, RLE: 2+ Labs: Laboratory Results - last 24 hr 10/05/16 10/05/16 10/05/16 12:33 17:02 22:05 WBC RBC Hgb Hct MCV MCHC RDW Plt Count MPV Neutrophils % Lymphocytes % Monocytes % Eosinophils % Basophils % Sodium Potassium Chloride Carbon Dioxide Anion Gap BUN Creatinine Creat Clearance w eGFR POC Glucometer 137 344 117 Random Glucose Calcium Total Bilirubin AST ALT Alkaline Phosphatase Total Protein Albumin 10/06/16 10/06/16 10/06/16 06:15 06:15 06:33 WBC 14.2 H RBC 3.32 L Hgb 9.9 L Hct 30.8 L MCV 92.6 MCHC 32.2 RDW 16.2 H Plt Count 180 MPV 10.3 Neutrophils % 78.9 Lymphocytes % 10.1 D Monocytes % 10.8 H D Eosinophils % 0.1 D Basophils % 0.1 Sodium 147 H Potassium 3.9 Chloride 103 Carbon Dioxide 30 Anion Gap 14 BUN 79 H Creatinine 2.4 H Creat Clearance w eGFR 26.74 POC Glucometer 69 Random Glucose 59 L D Calcium 8.8 Total Bilirubin 0.4 D AST 27 ALT 20 Alkaline Phosphatase 38 L Total Protein 6.1 L Albumin 3.2 L 10/06/16 06:56 WBC RBC Hgb Hct MCV MCHC RDW Plt Count MPV Neutrophils % Lymphocytes % Monocytes % Eosinophils % Basophils % Sodium Potassium Chloride Carbon Dioxide Anion Gap BUN Creatinine Creat Clearance w eGFR POC Glucometer 78 Random Glucose Calcium Total Bilirubin AST ALT Alkaline Phosphatase Total Protein Albumin Problem List - Problems (1) COPD exacerbation Assessment/Plan: Code(s): J44.1 - CHRONIC OBSTRUCTIVE PULMONARY DISEASE W (ACUTE) EXACERBATION (2) CKD (chronic kidney disease) Assessment/Plan: Code(s): N18.9 - CHRONIC KIDNEY DISEASE, UNSPECIFIED Qualifiers: Chronic kidney disease stage: unspecified stage Qualified Code(s): N18.9 - Chronic kidney disease, unspecified (3) Diabetes mellitus, insulin dependent (IDDM), uncontrolled Assessment/Plan: Code(s): E10.65 - TYPE 1 DIABETES MELLITUS WITH HYPERGLYCEMIA Qualifiers: Diabetes mellitus complication status: without complication Qualified Code(s): E10.9 - Type 1 diabetes mellitus without complications (4) CHF (congestive heart failure) Assessment/Plan: Code(s): I50.9 - HEART FAILURE, UNSPECIFIED Qualifiers: Congestive heart failure type: diastolic (5) Back pain Assessment/Plan: Code(s): M54.9 - DORSALGIA, UNSPECIFIED PLAN: Symbicort BID Spiriva O2 as needed BD TX Change to Prednisone Lasix Zithromax Nasal spray No smoking No Pulmonary contraindication for D/C planning Dr Amaral
[2016-10-06] MEDS: busPIRone HCL 5 MG TABLET PO SCH ×2 (09:48→22:26)
[2016-10-06] MEDS: LACTULOSE 20 GM/30 ML UDC (FOR ORAL USE ONLY) PO SCH (09:49)
[2016-10-06] MEDS: FUROSEMIDE 40 MG/4 ML INJECTABLE VIAL IVPUSH SCH (09:49)
[2016-10-06] MEDS: LOSARTAN POTASSIUM 25 MG TABLET PO SCH (09:49)
[2016-10-06] MEDS: TAMSULOSIN HCL 0.4 MG CAP.ER.24H (FP) PO SCH ×2 (09:49→22:26)
[2016-10-06] MEDS: DOCUSATE SODIUM 100 MG CAPSULE (FP) PO SCH ×2 (09:49→22:26)
[2016-10-06] MEDS: GEMFIBROZIL 600 MG TABLET (FP) PO SCH ×2 (09:50→22:26)
[2016-10-06] MEDS: methylPREDNISolone NA SUCC 40 MG/1 ML VIAL IVPB SCH (09:50)
[2016-10-06] MEDS: BUDESONIDE/FORMETEROL FUMARATE 160/4.5 mcg INHALER IH SCH ×2 (09:50→22:25)
[2016-10-06] MEDS: RANITIDINE HCL 150 MG TABLET (FP) PO SCH (09:50)
[2016-10-06] MEDS: TIOTROPIUM BROMIDE 18 MCG/INH (DEVICE W/ 30 CAPSULES) IH SCH (09:50)
[2016-10-06] MEDS: ALLOPURINOL 100 MG TABLET (FP) PO SCH (09:51)
[2016-10-06] MEDS ORDERED: PT OWN MED DRAWER 7, Y5N ONE (10:04)
[2016-10-06] MEDS: ROFLUMILAST 500 MCG TABLET PO SCH (10:05)
[2016-10-06] MEDS: AZITHROMYCIN IVPB 250 MG in DEXTROSE 5%-WATER - 250 ML IVPB SCH (10:05)
[2016-10-06] MEDS: predniSONE 20 MG TABLET (UD) PO SCH ×2 (10:05→22:26)
--- NOTE | 2016-10-06 13:10 | PN ---
Progress Note, Physician Chief Complaint: HAVING BREAKFAST AT BEDSIDE SEEMS CLOSE TO BASELINE WANTS TO GO HOME - Current Medication List Current Medications: Active Medications Acetaminophen (Tylenol -) 650 mg PO Q4H PRN PRN Reason: FEVER OR PAIN Albuterol Sulfate (Ventolin 0.083% Nebulizer Soln -) 1 amp NEB Q4H PRN PRN Reason: SHORT OF BREATH/WHEEZING Last Admin: 10/05/16 17:20 Dose: 1 amp Albuterol Sulfate (Ventolin 0.083% Nebulizer Soln -) 1 amp NEB TIDR [facility] Last Admin: 10/06/16 06:45 Dose: 1 amp Allopurinol (Zyloprim -) 100 mg PO DAILY [facility] Last Admin: 10/06/16 09:51 Dose: 100 mg Aspirin (Asa -) 81 mg PO Q2D@1000 [facility] Last Admin: 10/05/16 10:58 Dose: 81 mg Budesonide/Formoterol Fumarate (Symbicort 160/4.5mcg -) 2 puff IH BID [facility] Last Admin: 10/06/16 09:50 Dose: 2 puff Buspirone HCl (Buspar -) 10 mg PO BID [facility] Last Admin: 10/06/16 09:48 Dose: 10 mg Diazepam (Valium Injection -) 1 mg IVPUSH HS PRN PRN Reason: AGITATION Diltiazem HCl (Cardizem Cd -) 120 mg PO DAILY [facility] Last Admin: 10/06/16 09:49 Dose: 120 mg Docusate Sodium (Colace -) 100 mg PO BID [facility] Last Admin: 10/06/16 09:49 Dose: 100 mg Fentanyl (Duragesic 75mcg Patch -) 1 patch TD Q72H [facility] Last Admin: 10/05/16 09:31 Dose: 1 patch Furosemide (Lasix Injection -) 40 mg IVPUSH DAILY [facility] Last Admin: 10/06/16 09:49 Dose: 40 mg Gemfibrozil (Lopid -) 600 mg PO BID [facility] Last Admin: 10/06/16 09:50 Dose: 600 mg Guaifenesin/Codeine Phosphate (Robitussin Ac -) 10 ml PO Q8H PRN PRN Reason: COUGH Last Admin: 10/06/16 00:42 Dose: 10 ml Hydromorphone HCl (Dilaudid Injection -) 1 mg IVPB Q6H PRN PRN Reason: PAIN Last Admin: 10/06/16 09:52 Dose: 1 mg Insulin Aspart (Novolog Vial Sliding Scale -) 1 vial SQ ACHS [facility] PRN Reason: Protocol Last Admin: 10/06/16 12:32 Dose: Not Given Insulin Aspart (Novolog Mix 70/30 Vial) 25 units SQ BIDAC [facility] Last Admin: 10/06/16 06:34 Dose: Not Given Lactulose (Cephulac (Oral Use)) 10 gm PO DAILY [facility] Last Admin: 10/06/16 09:49 Dose: 10 gm Losartan Potassium (Cozaar -) 25 mg PO DAILY [facility] Last Admin: 10/06/16 09:49 Dose: 25 mg Metoclopramide HCl (Reglan -) 5 mg PO TIDAC [facility] Last Admin: 10/06/16 12:35 Dose: 5 mg Miscellaneous (Duragesic Patch Waste) 1 each TD PRN PRN Last Admin: 10/05/16 09:42 Dose: 1 each Prednisone (Deltasone -) 30 mg PO BID [facility] Last Admin: 10/06/16 10:05 Dose: 30 mg Ranitidine HCl (Zantac -) 300 mg PO DAILY [facility] Last Admin: 10/06/16 09:50 Dose: 300 mg Roflumilast (Daliresp -) 500 mcg PO DAILY [facility] Last Admin: 10/06/16 10:05 Dose: 500 mcg Senna (Senna -) 2 tab PO HS PRN PRN Reason: CONSTIPATION Last Admin: 09/29/16 22:32 Dose: 2 tab Sitagliptin Phosphate (Januvia -) 25 mg PO DAILY@0700 [facility] Last Admin: 10/06/16 06:34 Dose: Not Given Sodium Chloride ([place] Nasal [place] -) 2 spray NS BID PRN PRN Reason: NASAL CONGESTION Last Admin: 10/04/16 22:21 Dose: 2 sprays Tamsulosin HCl (Flomax -) 0.4 mg PO BID [facility] Last Admin: 10/06/16 09:49 Dose: 0.4 mg Terazosin HCl (Hytrin -) 5 mg PO HS [facility] Last Admin: 10/05/16 22:07 Dose: 5 mg Tiotropium [place] (Spiriva -) 1 puff IH DAILY [facility] Last Admin: 10/06/16 09:50 Dose: 1 puff Zolpidem Tartrate (Ambien -) 5 mg PO HS PRN PRN Reason: INSOMNIA Last Admin: 10/06/16 00:02 Dose: 5 mg - Objective Vital Signs: Vital Signs Temperature 98.4 F 10/06/16 09:30 Pulse Rate 100 H 10/06/16 09:30 Respiratory Rate 20 10/06/16 09:30 Blood Pressure 143/70 10/06/16 09:30 O2 Sat by Pulse Oximetry (%) 93 L 10/06/16 09:00 Cardiovascular: Yes: Regular Rate and Rhythm, S1, S2 Respiratory: Yes: Rhonchi (CONGESTION) Gastrointestinal: Yes: Normal Bowel Sounds, Soft Edema: Yes Labs: CBC, BMP 10/06/16 06:15 10/06/16 06:15 Problem List - Problems (1) Delirium, drug-induced Code(s): F19.921 - OTH PSYCHOACTIVE SUBSTANCE USE, UNSP W INTOX W DELIRIUM (2) Back pain Code(s): M54.9 - DORSALGIA, UNSPECIFIED (3) BPH (benign prostatic hyperplasia) Code(s): N40.0 - BENIGN PROSTATIC HYPERPLASIA WITHOUT LOWER URINRY TRACT SYMP (4) CHF (congestive heart failure) Code(s): I50.9 - HEART FAILURE, UNSPECIFIED Qualifiers: Congestive heart failure type: diastolic (5) CKD (chronic kidney disease) Code(s): N18.9 - CHRONIC KIDNEY DISEASE, UNSPECIFIED Qualifiers: Chronic kidney disease stage: unspecified stage Qualified Code(s): N18.9 - Chronic kidney disease, unspecified (6) COPD exacerbation Code(s): J44.1 - CHRONIC OBSTRUCTIVE PULMONARY DISEASE W (ACUTE) EXACERBATION (7) Delirium due to another medical condition Code(s): F05 - DELIRIUM DUE TO KNOWN PHYSIOLOGICAL CONDITION (8) Diabetes mellitus Code(s): E11.9 - TYPE 2 DIABETES MELLITUS WITHOUT COMPLICATIONS Qualifiers: Diabetes mellitus type: type 2 Diabetes mellitus complication status: without complication (9) Hallucination Code(s): R44.3 - HALLUCINATIONS, UNSPECIFIED Assessment/Plan (1) Hallucination Assessment/Plan: check ammonia level -> ordered neuro on case -> delirium versus metabolic encephalopathy versus opiods overuse versus steroids induced psychosis. f/u labs ct brain to r/o icp Code(s): R44.3 - HALLUCINATIONS, UNSPECIFIED (2) COPD exacerbation Assessment/Plan: po steroids taper pulm on board broncho dilators tmw last day of abx Code(s): J44.1 - CHRONIC OBSTRUCTIVE PULMONARY DISEASE W (ACUTE) EXACERBATION (3) Back pain Assessment/Plan: fentanyl patch pain meds Code(s): M54.9 - DORSALGIA, UNSPECIFIED (4) CKD (chronic kidney disease) Assessment/Plan: daily weight monitor lytes, creatinine is improving renal on board Code(s): N18.9 - CHRONIC KIDNEY DISEASE, UNSPECIFIED Qualifiers: Chronic kidney disease stage: unspecified stage Qualified Code(s): N18.9 - Chronic kidney disease, unspecified (5) CHF (congestive heart failure) Assessment/Plan: acute on chronic CHF iv lasix monitor ltytes Code(s): I50.9 - HEART FAILURE, UNSPECIFIED Qualifiers: Congestive heart failure type: diastolic (6) BPH (benign prostatic hyperplasia) Assessment/Plan: flomax and hytrin Code(s): N40.0 - BENIGN PROSTATIC HYPERPLASIA WITHOUT LOWER URINRY TRACT SYMP (7) Diabetes mellitus, insulin dependent (IDDM), uncontrolled Assessment/Plan: insulin Code(s): E10.65 - TYPE 1 DIABETES MELLITUS WITH HYPERGLYCEMIA Qualifiers: Diabetes mellitus complication status: without complication Qualified Code(s): E10.9 - Type 1 diabetes mellitus without complications (8) Delirium, drug-induced Code(s): F19.921 - OTH PSYCHOACTIVE SUBSTANCE USE, UNSP W INTOX W DELIRIUM NO DYSPHAGIA/ST ON CASE OPIOID DEPENDENCE NEURO/ADDICTION Rx ON CASE PASTOR BERNABE
[2016-10-06] MEDS ORDERED: diazePAM 2 MG TABLET PO PRN (13:20)
[2016-10-06] MEDS: ALBUTEROL SO4 0.083% IH SOL 2.5 MG/3 ML VIAL.NEB. NEB PRN ×2 (14:11→23:46)
[2016-10-06] MEDS: HYDROmorphone HCL CARPU-JECT 1 MG/1 ML DISP.SYRIN IM PRN ×2 (15:53→22:27)
[2016-10-06] MEDS ORDERED: INSULIN (NOVOLOG MIX 70/30) 100 UNITS/ML MDV SQ ONE (18:09)
--- NOTE | 2016-10-06 18:38 | PN ---
Progress Note, Physician History of Present Illness: Pt seen and examined at bedside. He is awake and alert. He feels that his breathing is improving. - Current Medication List Current Medications: Active Medications Acetaminophen (Tylenol -) 650 mg PO Q4H PRN PRN Reason: FEVER OR PAIN Albuterol Sulfate (Ventolin 0.083% Nebulizer Soln -) 1 amp NEB Q4H PRN PRN Reason: SHORT OF BREATH/WHEEZING Last Admin: 10/06/16 14:11 Dose: 1 amp Allopurinol (Zyloprim -) 100 mg PO DAILY [facility] Last Admin: 10/06/16 09:51 Dose: 100 mg Aspirin (Asa -) 81 mg PO Q2D@1000 [facility] Last Admin: 10/05/16 10:58 Dose: 81 mg Budesonide/Formoterol Fumarate (Symbicort 160/4.5mcg -) 2 puff IH BID [facility] Last Admin: 10/06/16 09:50 Dose: 2 puff Buspirone HCl (Buspar -) 10 mg PO BID [facility] Last Admin: 10/06/16 09:48 Dose: 10 mg Diazepam (Valium -) 2 mg PO HS PRN PRN Reason: AGITATION Diltiazem HCl (Cardizem Cd -) 120 mg PO DAILY [facility] Last Admin: 10/06/16 09:49 Dose: 120 mg Docusate Sodium (Colace -) 100 mg PO BID [facility] Last Admin: 10/06/16 09:49 Dose: 100 mg Fentanyl (Duragesic 75mcg Patch -) 1 patch TD Q72H [facility] Last Admin: 10/05/16 09:31 Dose: 1 patch Furosemide (Lasix -) 60 mg PO DAILY [facility] Gemfibrozil (Lopid -) 600 mg PO BID [facility] Last Admin: 10/06/16 09:50 Dose: 600 mg Guaifenesin/Codeine Phosphate (Robitussin Ac -) 10 ml PO Q8H PRN PRN Reason: COUGH Last Admin: 10/06/16 00:42 Dose: 10 ml Hydromorphone HCl (Dilaudid Injection -) 1 mg IM Q6H PRN PRN Reason: PAIN Last Admin: 10/06/16 15:53 Dose: 1 mg Insulin Aspart (Novolog Vial Sliding Scale -) 1 vial SQ ACHS [facility] PRN Reason: Protocol Last Admin: 10/06/16 17:11 Dose: 8 unit Insulin Aspart (Novolog Mix 70/30 Vial) 25 units SQ BIDAC [facility] Last Admin: 10/06/16 17:13 Dose: 25 units Lactulose (Cephulac (Oral Use)) 10 gm PO DAILY [facility] Last Admin: 10/06/16 09:49 Dose: 10 gm Losartan Potassium (Cozaar -) 25 mg PO DAILY [facility] Last Admin: 10/06/16 09:49 Dose: 25 mg Metoclopramide HCl (Reglan -) 5 mg PO TIDAC [facility] Last Admin: 10/06/16 17:13 Dose: 5 mg Miscellaneous (Duragesic Patch Waste) 1 each TD PRN PRN Last Admin: 10/05/16 09:42 Dose: 1 each Prednisone (Deltasone -) 30 mg PO BID [facility] Last Admin: 10/06/16 10:05 Dose: 30 mg Ranitidine HCl (Zantac -) 300 mg PO DAILY [facility] Last Admin: 10/06/16 09:50 Dose: 300 mg Roflumilast (Daliresp -) 500 mcg PO DAILY [facility] Last Admin: 10/06/16 10:05 Dose: 500 mcg Senna (Senna -) 2 tab PO HS PRN PRN Reason: CONSTIPATION Last Admin: 09/29/16 22:32 Dose: 2 tab Sitagliptin Phosphate (Januvia -) 25 mg PO DAILY@0700 [facility] Last Admin: 10/06/16 06:34 Dose: Not Given Sodium Chloride ([place] Nasal [place] -) 2 spray NS BID PRN PRN Reason: NASAL CONGESTION Last Admin: 10/04/16 22:21 Dose: 2 sprays Tamsulosin HCl (Flomax -) 0.4 mg PO BID [facility] Last Admin: 10/06/16 09:49 Dose: 0.4 mg Terazosin HCl (Hytrin -) 5 mg PO HS [facility] Last Admin: 10/05/16 22:07 Dose: 5 mg Tiotropium [place] (Spiriva -) 1 puff IH DAILY [facility] Last Admin: 10/06/16 09:50 Dose: 1 puff Zolpidem Tartrate (Ambien -) 5 mg PO HS PRN PRN Reason: INSOMNIA Last Admin: 10/06/16 00:02 Dose: 5 mg - Objective Vital Signs: Vital Signs Temperature 98.2 F 10/06/16 17:54 Pulse Rate 99 H 10/06/16 17:54 Respiratory Rate 20 10/06/16 17:54 Blood Pressure 136/57 10/06/16 17:54 O2 Sat by Pulse Oximetry (%) 93 L 10/06/16 09:00 Constitutional: Yes: Calm Eyes: Yes: Conjunctiva Clear HENT: Yes: Atraumatic Neck: Yes: Supple Cardiovascular: Yes: S1, S2 Respiratory: Yes: Wheezes Gastrointestinal: Yes: Soft Musculoskeletal: Yes: WNL Edema: Yes Edema: LLE: 1+, RLE: 1+ Neurological: Yes: Oriented Psychiatric: Yes: Oriented Labs: CBC, BMP 10/06/16 06:15 10/06/16 06:15 Assessment/Plan Current Medications Generic Name Dose Route Start Last Admin Trade Name Freq PRN Reason Stop Dose Admin Acetaminophen 650 mg 09/29/16 08:57 Tylenol - PO Q4H PRN FEVER OR PAIN Albuterol Sulfate 1 amp 09/28/16 16:35 10/06/16 14:11 Ventolin 0.083% Nebulizer Soln - NEB 1 amp Q4H PRN Administration SHORT OF BREATH/WHEEZING Allopurinol 100 mg 09/29/16 10:00 10/06/16 09:51 Zyloprim - PO 100 mg DAILY [facility] Administration Aspirin 81 mg 09/29/16 10:00 10/05/16 10:58 Asa - PO 81 mg Q2D@1000 [facility] Administration Budesonide/Formoterol Fumarate 2 puff 09/28/16 22:00 10/06/16 09:50 Symbicort 160/4.5mcg - IH 2 puff BID [facility] Administration Buspirone HCl 10 mg 10/05/16 22:00 10/06/16 09:48 Buspar - PO 10 mg BID [facility] Administration Diazepam 2 mg 10/06/16 13:20 Valium - PO HS PRN AGITATION Diltiazem HCl 120 mg 09/29/16 10:00 10/06/16 09:49 Cardizem Cd - PO 120 mg DAILY [facility] Administration Docusate Sodium 100 mg 09/29/16 10:00 10/06/16 09:49 Colace - PO 100 mg BID [facility] Administration Fentanyl 1 patch 09/29/16 08:30 10/05/16 09:31 Duragesic 75mcg Patch - TD 1 patch Q72H [facility] Administration Furosemide 60 mg 10/07/16 10:00 Lasix - PO DAILY [facility] Gemfibrozil 600 mg 09/29/16 10:00 10/06/16 09:50 Lopid - PO 600 mg BID [facility] Administration Guaifenesin/Codeine Phosphate 10 ml 10/02/16 15:26 10/06/16 00:42 Robitussin Ac - PO 10 ml Q8H PRN Administration COUGH Hydromorphone HCl 1 mg 10/06/16 13:20 10/06/16 15:53 Dilaudid Injection - IM 1 mg Q6H PRN Administration PAIN Insulin Aspart 1 vial 09/29/16 23:15 10/06/16 17:11 Novolog Vial Sliding Scale - SQ 8 unit ACHS [facility] Administration Protocol Insulin Aspart 25 units 10/01/16 07:00 10/06/16 17:13 Novolog Mix 70/30 Vial SQ 25 units BIDAC [facility] Administration Lactulose 10 gm 09/29/16 10:00 10/06/16 09:49 Cephulac (Oral Use) PO 10 gm DAILY [facility] Administration Losartan Potassium 25 mg 10/06/16 10:00 10/06/16 09:49 Cozaar - PO 25 mg DAILY [facility] Administration Metoclopramide HCl 5 mg 09/29/16 11:00 10/06/16 17:13 Reglan - PO 5 mg TIDAC [facility] Administration Miscellaneous 1 each 09/29/16 09:01 10/05/16 09:42 Duragesic Patch Waste TD 1 each PRN PRN Administration Prednisone 30 mg 10/06/16 10:00 10/06/16 10:05 Deltasone - PO 30 mg BID [facility] Administration Ranitidine HCl 300 mg 09/29/16 10:00 10/06/16 09:50 Zantac - PO 300 mg DAILY [facility] Administration Roflumilast 500 mcg 10/02/16 10:50 10/06/16 10:05 Daliresp - PO 500 mcg DAILY [facility] Administration Senna 2 tab 09/29/16 08:30 09/29/16 22:32 Senna - PO 2 tab HS PRN Administration CONSTIPATION Sitagliptin Phosphate 25 mg 09/29/16 07:00 10/06/16 06:34 Januvia - PO Not Given DAILY@0700 [facility] Sodium Chloride 2 spray 10/03/16 14:40 10/04/16 22:21 [place] Nasal [place] - NS 2 sprays BID PRN Administration NASAL CONGESTION Tamsulosin HCl 0.4 mg 09/29/16 10:00 10/06/16 09:49 Flomax - PO 0.4 mg BID [facility] Administration Terazosin HCl 5 mg 09/29/16 22:00 10/05/16 22:07 Hytrin - PO 5 mg HS [facility] Administration Tiotropium [place] 1 puff 09/28/16 17:30 10/06/16 09:50 Spiriva - IH 1 puff DAILY [facility] Administration Zolpidem Tartrate 5 mg 10/04/16 23:17 10/06/16 00:02 Ambien - PO 5 mg HS PRN Administration INSOMNIA Impression 1. CKD 2. DM 3. HTN 4. CHF 5. COPD 6. 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
[2016-10-06] MEDS: TERAZOSIN HCL 5 MG CAPSULE PO SCH (22:26)
[2016-10-07] MEDS: sitaGLIPtin PHOSPHATE 25 MG TABLET (FP) PO SCH (06:23)
[2016-10-07] MEDS: ALBUTEROL SO4 0.083% IH SOL 2.5 MG/3 ML VIAL.NEB. NEB PRN ×2 (06:25→11:17)
[2016-10-07] MEDS: INSULIN SLIDING SCALE (NOVOLOG) 1 VIAL SQ SCH ×2 (06:29→12:00)
[2016-10-07] MEDS: HYDROmorphone HCL CARPU-JECT 1 MG/1 ML DISP.SYRIN IM PRN (06:29)
[2016-10-07] MEDS: INSULIN (NOVOLOG MIX 70/30) 100 UNITS/ML MDV SQ SCH (06:29)
[2016-10-07] MEDS: METOCLOPRAMIDE HCL 10 MG TABLET (FP) PO SCH ×2 (06:29→12:00)
[2016-10-07 07:59] LABS: CALCIUM 8.7 mg/dL (8.5-10.1)
[2016-10-07 08:28] LABS: CREATININE 2.2 mg/dL (0.7-1.3)
[2016-10-07 08:29] LABS: ALBUMIN 3.2 g/dl (3.4-5.0); BILIRUBIN,TOTAL 0.3 mg/dL (0.2-1.0); CALCIUM 8.5 mg/dL (8.5-10.1); CREATININE 2.2 mg/dL (0.7-1.3); TOT PROT 6.3 g/dl (6.4-8.2)
[2016-10-07 08:36] LABS: THYROID STIMULATING HORMONE 0.19 uIU/ml (0.358-3.74)
[2016-10-07 08:37] LABS: BASOPHIL 0.1 % (0-2.0); MCHC 32.3 g/dl (32.0-35.9); MEAN CELL VOLUME 93.1 fl (80-96); MEAN PLT VOLUME 10.4 fl (7.5-11.1); NEUTROPHILS 92.2 % (42.8-82.8); PLATELET COUNT 168 K/MM3 (134-434); RDW 16.1 % (11.9-15.9); WHITE BLOOD COUNT 15.2 K/mm3 (4.0-10.0)
[2016-10-07] MEDS: ASPIRIN 81 MG CHEWABLE TABLETS PO SCH (09:44)
[2016-10-07] MEDS: LACTULOSE 20 GM/30 ML UDC (FOR ORAL USE ONLY) PO SCH (09:45)
[2016-10-07] MEDS: busPIRone HCL 5 MG TABLET PO SCH (09:45)
--- NOTE | 2016-10-07 09:45 | PN ---
Progress Note (short form) - Note Progress Note: No acute change in overall condition. Breathing feels about the same. Some congested cough. No CP. Intake & Output 10/04/16 10/05/16 10/06/16 10/07/16 23:59 23:59 23:59 23:59 Intake Total 9333 391 3335 Balance 7333 204 5372 Weight 236 lb 1.6 oz 234 lb 9.6 oz 236 lb 3 oz 236 lb Last Vital Signs Temp Pulse Resp BP Pulse Ox 98.4 F 78 20 148/68 96 10/07/16 08:43 10/07/16 08:43 10/07/16 08:43 10/07/16 08:43 10/06/16 21:00 Active Medications Acetaminophen (Tylenol -) 650 mg PO Q4H PRN PRN Reason: FEVER OR PAIN Albuterol Sulfate (Ventolin 0.083% Nebulizer Soln -) 1 amp NEB Q4H PRN PRN Reason: SHORT OF BREATH/WHEEZING Last Admin: 10/07/16 06:25 Dose: 1 amp Allopurinol (Zyloprim -) 100 mg PO DAILY [facility] Last Admin: 10/06/16 09:51 Dose: 100 mg Aspirin (Asa -) 81 mg PO Q2D@1000 [facility] Last Admin: 10/05/16 10:58 Dose: 81 mg Budesonide/Formoterol Fumarate (Symbicort 160/4.5mcg -) 2 puff IH BID [facility] Last Admin: 10/06/16 22:25 Dose: 2 puff Buspirone HCl (Buspar -) 10 mg PO BID [facility] Last Admin: 10/06/16 22:26 Dose: 10 mg Diazepam (Valium -) 2 mg PO HS PRN PRN Reason: AGITATION Diltiazem HCl (Cardizem Cd -) 120 mg PO DAILY [facility] Last Admin: 10/06/16 09:49 Dose: 120 mg Docusate Sodium (Colace -) 100 mg PO BID [facility] Last Admin: 10/06/16 22:26 Dose: 100 mg Fentanyl (Duragesic 75mcg Patch -) 1 patch TD Q72H [facility] Last Admin: 10/05/16 09:31 Dose: 1 patch Furosemide (Lasix -) 60 mg PO DAILY [facility] Gemfibrozil (Lopid -) 600 mg PO BID [facility] Last Admin: 10/06/16 22:26 Dose: 600 mg Guaifenesin/Codeine Phosphate (Robitussin Ac -) 10 ml PO Q8H PRN PRN Reason: COUGH Last Admin: 10/06/16 00:42 Dose: 10 ml Hydromorphone HCl (Dilaudid Injection -) 1 mg IM Q6H PRN PRN Reason: PAIN Last Admin: 10/07/16 06:29 Dose: 1 mg Insulin Aspart (Novolog Vial Sliding Scale -) 1 vial SQ ACHS [facility] PRN Reason: Protocol Last Admin: 10/07/16 06:29 Dose: 8 unit Insulin Aspart (Novolog Mix 70/30 Vial) 25 units SQ BIDAC [facility] Last Admin: 10/07/16 06:29 Dose: 25 units Lactulose (Cephulac (Oral Use)) 10 gm PO DAILY [facility] Last Admin: 10/06/16 09:49 Dose: 10 gm Losartan Potassium (Cozaar -) 25 mg PO DAILY [facility] Last Admin: 10/06/16 09:49 Dose: 25 mg Metoclopramide HCl (Reglan -) 5 mg PO TIDAC [facility] Last Admin: 10/07/16 06:29 Dose: 5 mg Miscellaneous (Duragesic Patch Waste) 1 each TD PRN PRN Last Admin: 10/05/16 09:42 Dose: 1 each Prednisone (Deltasone -) 30 mg PO BID [facility] Last Admin: 10/06/16 22:26 Dose: 30 mg Ranitidine HCl (Zantac -) 300 mg PO DAILY [facility] Last Admin: 10/06/16 09:50 Dose: 300 mg Roflumilast (Daliresp -) 500 mcg PO DAILY [facility] Last Admin: 10/06/16 10:05 Dose: 500 mcg Senna (Senna -) 2 tab PO HS PRN PRN Reason: CONSTIPATION Last Admin: 09/29/16 22:32 Dose: 2 tab Sitagliptin Phosphate (Januvia -) 25 mg PO DAILY@0700 [facility] Last Admin: 10/07/16 06:23 Dose: 25 mg Sodium Chloride ([place] Nasal [place] -) 2 spray NS BID PRN PRN Reason: NASAL CONGESTION Last Admin: 10/04/16 22:21 Dose: 2 sprays Tamsulosin HCl (Flomax -) 0.4 mg PO BID [facility] Last Admin: 10/06/16 22:26 Dose: 0.4 mg Terazosin HCl (Hytrin -) 5 mg PO HS [facility] Last Admin: 10/06/16 22:26 Dose: 5 mg Tiotropium [place] (Spiriva -) 1 puff IH DAILY [facility] Last Admin: 10/06/16 09:50 Dose: 1 puff Zolpidem Tartrate (Ambien -) 5 mg PO HS PRN PRN Reason: INSOMNIA Last Admin: 10/06/16 00:02 Dose: 5 mg General: Drowsy, NAD Cardiovascular: Yes: Regular Rate and Rhythm Respiratory: Yes: Scattered rhonchi, No expiratory wheezing heard Gastrointestinal: Yes: Normal Bowel Sounds, Soft Edema: Yes Edema: LLE: 2+, RLE: 2+ Labs: Laboratory Results - last 24 hr 10/06/16 10/06/16 10/06/16 11:55 17:08 22:16 WBC RBC Hgb Hct MCV MCHC RDW Plt Count MPV Neutrophils % Lymphocytes % Monocytes % Eosinophils % Basophils % Sodium Potassium Chloride Carbon Dioxide Anion Gap BUN Creatinine Creat Clearance w eGFR POC Glucometer 165 305 141 Random Glucose Calcium Total Bilirubin AST ALT Alkaline Phosphatase Ammonia Total Protein Albumin Vitamin B12 TSH RPR Titer 10/07/16 10/07/16 10/07/16 06:03 06:15 06:15 WBC 15.2 H RBC 3.32 L Hgb 10.0 L Hct 30.9 L MCV 93.1 MCHC 32.3 RDW 16.1 H Plt Count 168 MPV 10.4 Neutrophils % 92.2 H Lymphocytes % 4.2 L D Monocytes % 3.5 L Eosinophils % 0.0 D Basophils % 0.1 Sodium 141 Potassium 4.1 Chloride 100 Carbon Dioxide 30 Anion Gap 11 BUN 72 H Creatinine 2.2 H Creat Clearance w eGFR 29.57 POC Glucometer 317 Random Glucose 309 H* D Calcium 8.5 Total Bilirubin 0.3 D AST 32 ALT 22 Alkaline Phosphatase 44 L Ammonia Total Protein 6.3 L Albumin 3.2 L Vitamin B12 TSH 0.19 L D RPR Titer 10/07/16 10/07/16 10/07/16 06:15 06:15 06:15 WBC RBC Hgb Hct MCV MCHC RDW Plt Count MPV Neutrophils % Lymphocytes % Monocytes % Eosinophils % Basophils % Sodium 140 Potassium 4.1 Chloride 98 Carbon Dioxide 31 Anion Gap 11 BUN 75 H Creatinine 2.2 H Creat Clearance w eGFR POC Glucometer Random Glucose 319 H* Calcium 8.7 Total Bilirubin AST ALT Alkaline Phosphatase Ammonia 16.58 Total Protein Albumin Vitamin B12 1391 H D TSH RPR Titer Nonreactive Problem List - Problems (1) COPD exacerbation Assessment/Plan: Code(s): J44.1 - CHRONIC OBSTRUCTIVE PULMONARY DISEASE W (ACUTE) EXACERBATION (2) CKD (chronic kidney disease) Assessment/Plan: Code(s): N18.9 - CHRONIC KIDNEY DISEASE, UNSPECIFIED Qualifiers: Chronic kidney disease stage: unspecified stage Qualified Code(s): N18.9 - Chronic kidney disease, unspecified (3) Diabetes mellitus, insulin dependent (IDDM), uncontrolled Assessment/Plan: Code(s): E10.65 - TYPE 1 DIABETES MELLITUS WITH HYPERGLYCEMIA Qualifiers: Diabetes mellitus complication status: without complication Qualified Code(s): E10.9 - Type 1 diabetes mellitus without complications (4) CHF (congestive heart failure) Assessment/Plan: Code(s): I50.9 - HEART FAILURE, UNSPECIFIED Qualifiers: Congestive heart failure type: diastolic (5) Back pain Assessment/Plan: Code(s): M54.9 - DORSALGIA, UNSPECIFIED PLAN: Symbicort BID Spiriva O2 as needed BD [place] Prednisone Lasix Zithromax Nasal spray No smoking No Pulmonary contraindication for D/C planning Dr Amaral
[2016-10-07] MEDS: DOCUSATE SODIUM 100 MG CAPSULE (FP) PO SCH (09:46)
[2016-10-07] MEDS: ROFLUMILAST 500 MCG TABLET PO SCH (09:46)
[2016-10-07] MEDS: LOSARTAN POTASSIUM 25 MG TABLET PO SCH (09:46)
[2016-10-07] MEDS: predniSONE 20 MG TABLET (UD) PO SCH (09:47)
[2016-10-07] MEDS: TAMSULOSIN HCL 0.4 MG CAP.ER.24H (FP) PO SCH (09:48)
[2016-10-07] MEDS: RANITIDINE HCL 150 MG TABLET (FP) PO SCH (09:49)
[2016-10-07] MEDS: BUDESONIDE/FORMETEROL FUMARATE 160/4.5 mcg INHALER IH SCH (09:49)
[2016-10-07] MEDS: TIOTROPIUM BROMIDE 18 MCG/INH (DEVICE W/ 30 CAPSULES) IH SCH (09:49)
[2016-10-07] MEDS: ALLOPURINOL 100 MG TABLET (FP) PO SCH (09:49)
[2016-10-07] MEDS: GEMFIBROZIL 600 MG TABLET (FP) PO SCH (09:49)
[2016-10-07] MEDS ORDERED: FUROSEMIDE 40 MG TABLET (FP) PO SCH (10:00)
--- NOTE | 2016-10-07 10:08 | PN ---
Progress Note, Physician - Current Medication List Current Medications: Active Medications Acetaminophen (Tylenol -) 650 mg PO Q4H PRN PRN Reason: FEVER OR PAIN Albuterol Sulfate (Ventolin 0.083% Nebulizer Soln -) 1 amp NEB Q4H PRN PRN Reason: SHORT OF BREATH/WHEEZING Last Admin: 10/07/16 06:25 Dose: 1 amp Allopurinol (Zyloprim -) 100 mg PO DAILY [facility] Last Admin: 10/07/16 09:49 Dose: 100 mg Aspirin (Asa -) 81 mg PO Q2D@1000 [facility] Last Admin: 10/07/16 09:44 Dose: 81 mg Budesonide/Formoterol Fumarate (Symbicort 160/4.5mcg -) 2 puff IH BID [facility] Last Admin: 10/07/16 09:49 Dose: 2 puff Buspirone HCl (Buspar -) 10 mg PO BID [facility] Last Admin: 10/07/16 09:45 Dose: 10 mg Diazepam (Valium -) 2 mg PO HS PRN PRN Reason: AGITATION Diltiazem HCl (Cardizem Cd -) 120 mg PO DAILY [facility] Last Admin: 10/07/16 09:45 Dose: 120 mg Docusate Sodium (Colace -) 100 mg PO BID [facility] Last Admin: 10/07/16 09:46 Dose: 100 mg Fentanyl (Duragesic 75mcg Patch -) 1 patch TD Q72H [facility] Last Admin: 10/05/16 09:31 Dose: 1 patch Furosemide (Lasix -) 60 mg PO DAILY [facility] Last Admin: 10/07/16 09:48 Dose: 60 mg Gemfibrozil (Lopid -) 600 mg PO BID [facility] Last Admin: 10/07/16 09:49 Dose: 600 mg Guaifenesin/Codeine Phosphate (Robitussin Ac -) 10 ml PO Q8H PRN PRN Reason: COUGH Last Admin: 10/06/16 00:42 Dose: 10 ml Hydromorphone HCl (Dilaudid Injection -) 1 mg IM Q6H PRN PRN Reason: PAIN Last Admin: 10/07/16 06:29 Dose: 1 mg Insulin Aspart (Novolog Vial Sliding Scale -) 1 vial SQ ACHS [facility] PRN Reason: Protocol Last Admin: 10/07/16 06:29 Dose: 8 unit Insulin Aspart (Novolog Mix 70/30 Vial) 25 units SQ BIDAC [facility] Last Admin: 10/07/16 06:29 Dose: 25 units Lactulose (Cephulac (Oral Use)) 10 gm PO DAILY [facility] Last Admin: 10/07/16 09:45 Dose: 10 gm Losartan Potassium (Cozaar -) 25 mg PO DAILY [facility] Last Admin: 10/07/16 09:46 Dose: 25 mg Metoclopramide HCl (Reglan -) 5 mg PO TIDAC [facility] Last Admin: 10/07/16 06:29 Dose: 5 mg Miscellaneous (Duragesic Patch Waste) 1 each TD PRN PRN Last Admin: 10/05/16 09:42 Dose: 1 each Prednisone (Deltasone -) 30 mg PO BID [facility] Last Admin: 10/07/16 09:47 Dose: 30 mg Ranitidine HCl (Zantac -) 300 mg PO DAILY [facility] Last Admin: 10/07/16 09:49 Dose: 300 mg Roflumilast (Daliresp -) 500 mcg PO DAILY [facility] Last Admin: 10/07/16 09:46 Dose: 500 mcg Senna (Senna -) 2 tab PO HS PRN PRN Reason: CONSTIPATION Last Admin: 09/29/16 22:32 Dose: 2 tab Sitagliptin Phosphate (Januvia -) 25 mg PO DAILY@0700 [facility] Last Admin: 10/07/16 06:23 Dose: 25 mg Sodium Chloride ([place] Nasal [place] -) 2 spray NS BID PRN PRN Reason: NASAL CONGESTION Last Admin: 10/04/16 22:21 Dose: 2 sprays Tamsulosin HCl (Flomax -) 0.4 mg PO BID [facility] Last Admin: 10/07/16 09:48 Dose: 0.4 mg Terazosin HCl (Hytrin -) 5 mg PO HS [facility] Last Admin: 10/06/16 22:26 Dose: 5 mg Tiotropium [place] (Spiriva -) 1 puff IH DAILY [facility] Last Admin: 10/07/16 09:49 Dose: 1 puff Zolpidem Tartrate (Ambien -) 5 mg PO HS PRN PRN Reason: INSOMNIA Last Admin: 10/06/16 00:02 Dose: 5 mg - Objective Vital Signs: Vital Signs Temperature 98.4 F 10/07/16 08:43 Pulse Rate 78 10/07/16 08:43 Respiratory Rate 20 10/07/16 08:43 Blood Pressure 148/68 10/07/16 08:43 O2 Sat by Pulse Oximetry (%) 96 10/06/16 21:00 Labs: CBC, BMP 10/07/16 06:15 10/07/16 06:15 Problem List - Problems (1) Delirium, drug-induced Code(s): F19.921 - OTH PSYCHOACTIVE SUBSTANCE USE, UNSP W INTOX W DELIRIUM (2) Back pain Code(s): M54.9 - DORSALGIA, UNSPECIFIED (3) BPH (benign prostatic hyperplasia) Code(s): N40.0 - BENIGN PROSTATIC HYPERPLASIA WITHOUT LOWER URINRY TRACT SYMP (4) CHF (congestive heart failure) Code(s): I50.9 - HEART FAILURE, UNSPECIFIED Qualifiers: Congestive heart failure type: diastolic (5) CKD (chronic kidney disease) Code(s): N18.9 - CHRONIC KIDNEY DISEASE, UNSPECIFIED Qualifiers: Chronic kidney disease stage: unspecified stage Qualified Code(s): N18.9 - Chronic kidney disease, unspecified (6) COPD exacerbation Code(s): J44.1 - CHRONIC OBSTRUCTIVE PULMONARY DISEASE W (ACUTE) EXACERBATION (7) Delirium due to another medical condition Code(s): F05 - DELIRIUM DUE TO KNOWN PHYSIOLOGICAL CONDITION (8) Diabetes mellitus Code(s): E11.9 - TYPE 2 DIABETES MELLITUS WITHOUT COMPLICATIONS Qualifiers: Diabetes mellitus type: type 2 Diabetes mellitus complication status: without complication (9) Hallucination Code(s): R44.3 - HALLUCINATIONS, UNSPECIFIED Assessment/Plan (1) Hallucination Assessment/Plan: check ammonia level -> ordered neuro i doubt its seconadry to dilaudid as patient has been on higher doses in prior admissions maybe sec to patient not sleeping enough Code(s): R44.3 - HALLUCINATIONS, UNSPECIFIED (2) COPD exacerbation Assessment/Plan: IV steroids taper pulm on board broncho dilators darisep tmw last day of abx Code(s): J44.1 - CHRONIC OBSTRUCTIVE PULMONARY DISEASE W (ACUTE) EXACERBATION (3) Back pain Assessment/Plan: fentanyl patch pain meds Code(s): M54.9 - DORSALGIA, UNSPECIFIED (4) CKD (chronic kidney disease) Assessment/Plan: daily weight monitor lytes, creatinine is improving renal on board Code(s): N18.9 - CHRONIC KIDNEY DISEASE, UNSPECIFIED Qualifiers: Chronic kidney disease stage: unspecified stage Qualified Code(s): N18.9 - Chronic kidney disease, unspecified (5) CHF (congestive heart failure) Assessment/Plan: acute on chronic CHF iv lasix monitor ltytes Code(s): I50.9 - HEART FAILURE, UNSPECIFIED Qualifiers: Congestive heart failure type: diastolic (6) BPH (benign prostatic hyperplasia) Assessment/Plan: flomax and hytrin Code(s): N40.0 - BENIGN PROSTATIC HYPERPLASIA WITHOUT LOWER URINRY TRACT SYMP (7) Diabetes mellitus, insulin dependent (IDDM), uncontrolled Assessment/Plan: insulin bs 300s -> increased insulin Code(s): E10.65 - TYPE 1 DIABETES MELLITUS WITH HYPERGLYCEMIA Qualifiers: Diabetes mellitus complication status: without complication Qualified Code(s): E10.9 - Type 1 diabetes mellitus without complications (8) Delirium, drug-induced Code(s): F19.921 - OTH PSYCHOACTIVE SUBSTANCE USE, UNSP W INTOX W DELIRIUM 2/2 NARCOTIC PAIN Rx? R/O DYSPHAGIA -> ST OPIOID DEPENDENCE NEURO & ADDICTION Rx CONSULTED DISCHARGE ON PO Rx IF BS <250 PASTOR BERNABE
[2016-10-07] MEDS ORDERED: PT OWN MED DRAWER 7, Y5N ONE (10:34)
[2016-10-07] MEDS ORDERED: HYDROmorphone HCL CARPU-JECT 1 MG/1 ML DISP.SYRIN IM PRN (11:15)
--- NOTE | 2016-10-07 12:04 | DS ---
Physical Examination Vital Signs: Vital Signs Temperature 98.4 F 10/07/16 08:43 Pulse Rate 89 10/07/16 10:20 Respiratory Rate 20 10/07/16 08:43 Blood Pressure 148/68 10/07/16 08:43 O2 Sat by Pulse Oximetry (%) 95 10/07/16 10:20 Findings/Remarks: WANTS TO BE DISCHARGED REPEATEDLY C/O NOT GETTING ENOUGH NARCOTIC PAIN Rx PAGED ME MULTIPLE TIMES THROUGH SERVICE TO DISCUSS "MEDICATIONS" -> DOES NOT ACCEPT *67 PHONE CALL FROM MY CELL PATIENT CLAIMS THAT HE WILL BE GOING TO PAIN [facility] 10/08 Constitutional: Yes: Calm Cardiovascular: Yes: S1, S2 Respiratory: Yes: Rhonchi Gastrointestinal: Yes: Normal Bowel Sounds, Soft Edema: Yes Labs: CBC, BMP 10/07/16 06:15 10/07/16 06:15 Discharge Summary Reason For Visit: COPD EXACERBATON; CKD; PNEUMONIA Current Active Problems Acute metabolic encephalopathy (Acute) Acute on chronic respiratory failure with hypoxia and hypercapnia (Acute) Back pain (Acute) Bigeminy (Acute) CKD (chronic kidney disease) (Acute) COPD exacerbation (Acute) Cough (Acute) Delirium due to another medical condition (Acute) Delirium, drug-induced (Acute) Diabetes mellitus, insulin dependent (IDDM), uncontrolled (Acute) HTN (hypertension) (Acute) Hallucination (Acute) Hyperlipidemia LDL goal < 100 (Acute) Hypertriglyceridemia (Acute) Pneumonia (Acute) Shortness of breath (Acute) Tachycardia (Acute) Wheeze (Acute) Opioid dependence in controlled environment (Chronic) Hospital Course: (1) Hallucination Assessment/Plan: neuro & psych [facility] case [facility] Code(s): R44.3 - HALLUCINATIONS, UNSPECIFIED (2) COPD exacerbation Assessment/Plan: IV steroids taper -> po pulm on board broncho dilators Code(s): J44.1 - CHRONIC OBSTRUCTIVE PULMONARY DISEASE W (ACUTE) EXACERBATION (3) Back pain Assessment/Plan: fentanyl patch pain meds Code(s): M54.9 - DORSALGIA, UNSPECIFIED (4) CKD (chronic kidney disease) Assessment/Plan: daily weight creatinine is improving renal on board Code(s): N18.9 - CHRONIC KIDNEY DISEASE, UNSPECIFIED Qualifiers: Chronic kidney disease stage: unspecified stage Qualified Code(s): N18.9 - Chronic kidney disease, unspecified (5) CHF (congestive heart failure) Assessment/Plan: acute on chronic CHF iv lasix monitor ltytes Code(s): I50.9 - HEART FAILURE, UNSPECIFIED Qualifiers: Congestive heart failure type: diastolic (6) BPH (benign prostatic hyperplasia) Assessment/Plan: flomax and hytrin Code(s): N40.0 - BENIGN PROSTATIC HYPERPLASIA WITHOUT LOWER URINRY TRACT SYMP (7) Diabetes mellitus, insulin dependent (IDDM), uncontrolled Assessment/Plan: insulin bs improved Code(s): E10.65 - TYPE 1 DIABETES MELLITUS WITH HYPERGLYCEMIA Qualifiers: Diabetes mellitus complication status: without complication Qualified Code(s): E10.9 - Type 1 diabetes mellitus without complications (8) Delirium, drug-induced Code(s): F19.921 - OTH PSYCHOACTIVE SUBSTANCE USE, UNSP W INTOX W DELIRIUM 2/2 NARCOTIC PAIN Rx? OPIOID DEPENDENCE NEURO & ADDICTION Rx CONSULTED DISCHARGE ON PO Rx [facility] [facility] Condition: Stable - Instructions Referrals: Misti Crenshaw MD [Primary Care Provider] - Disposition: HOME - Home Medications Comprehensive Discharge Medication List: Ambulatory Orders Aspirin [ASA -] 81 mg PO Q2D@1000 #30 tab.chew 12/27/14 Gemfibrozil [Lopid -] 600 mg PO BID #180 tablet 12/27/14 Terazosin HCl [Hytrin -] 5 mg PO HS #30 capsule 12/27/14 Losartan Potassium [Cozaar -] 50 mg PO DAILY tablet 05/05/15 Cyanocobalamin [Vitamin B12 -] 1 g PO DAILY 12/19/15 Lactulose 10 gm PO DAILY 12/20/15 Iron 325 mg PO BID 02/22/16 Tamsulosin HCl [Flomax -] 0.4 mg PO BID 02/22/16 FENTANYL 75mcg PATCH [DURAGESIC 75mcg PATCH -] 1 patch TD Q72H 02/23/16 Albuterol Sulfate Inhaler - [Ventolin HFA Inhaler -] 1 - 2 inh PO Q4H #1 inhaler 03/11/16 Docusate Sodium [Colace -] 100 mg PO BID #60 capsule 03/11/16 Diltiazem Cd [Cardizem Cd -] 120 mg PO DAILY 05/05/16 Naloxegol Oxalate [Movantik] 25 mg PO DAILY PRN 05/05/16 Potassium Chloride [K-Dur -] 20 meq PO DAILY 05/05/16 Prednisone 10 mg PO DAILY 05/05/16 Sitagliptin Phosphate [Januvia] 25 mg PO DAILY 05/05/16 Zolpidem Tartrate [Ambien] 10 mg PO HS PRN 05/05/16 Furosemide [Lasix -] 60 mg PO DAILY tablet 05/09/16 Metoclopramide HCl [Reglan -] 5 mg PO TIDAC tablet 05/09/16 Sennosides [Senna -] 2 tab PO HS PRN #0 tablet 05/09/16 Oxycodone HCl/Acetaminophen [Percocet 10-325 mg Tablet] 1 each PO TID PRN #60 tablet MDD 3 05/10/16 Allopurinol [Zyloprim -] 100 mg PO DAILY 09/28/16 Amoxicillin/Potassium Clav [Amox-Clav 875-125 mg Tablet] 1 each PO BID 09/28/16 Cefuroxime Axetil [Cefuroxime] 500 mg PO BID 09/28/16 Lactulose [Generlac] 10 gm PO DAILY 09/28/16 Ranitidine HCl 300 mg PO DAILY 09/28/16 Sennosides [Senokot] 8.6 mg PO DAILY 09/28/16
[2016-10-07 14:30] VITALS: BP 140/70; PULSE 90; TEMP 98.6
--- NOTE | 2016-10-07 15:00 | PN ---
Progress Note, Physician History of Present Illness: Pt seen and examined at bedside. He is awake and alert. He feels that his breathing is improved. - Objective Vital Signs: Vital Signs Temperature 98.6 F 10/07/16 14:28 Pulse Rate 90 10/07/16 14:28 Respiratory Rate 18 10/07/16 14:28 Blood Pressure 140/70 10/07/16 14:28 O2 Sat by Pulse Oximetry (%) 95 10/07/16 10:20 Constitutional: Yes: Anxious HENT: Yes: Atraumatic Neck: Yes: Supple Cardiovascular: Yes: S1, S2 Respiratory: Yes: CTA Bilaterally Gastrointestinal: Yes: Soft, Abdomen, Obese Genitourinary: Yes: WNL Musculoskeletal: Yes: WNL Edema: Yes Edema: LLE: 1+, RLE: 1+ Neurological: Yes: Oriented Psychiatric: Yes: Oriented Labs: CBC, BMP 10/07/16 06:15 10/07/16 06:15 Assessment/Plan Impression 1. CKD 2. DM 3. HTN 4. CHF 5. COPD 6. fluid overload Plan - renal function is slowly stabilizing - will need outpt follow up - cont lasix - cont losartan - taper steroids as tolerated - baseline staker surveying is about 1.7 - hold potassium supplements - repeat labs in am - avoid hypotension
[2016-10-07] MEDS ORDERED: INSULIN (NOVOLOG MIX 70/30) 100 UNITS/ML MDV SQ SCH (16:30)
== END 2016-10-07 14:33 | disposition home or self-care (01) | DRG 190 ==
LOC: JER 11:16 → JERBED 15:22 → J4S 22:43 → J8W 09-30 18:45
PROVIDERS: ADMIT Family Medicine; ATTEND Family Medicine
DX: J44.1 Chronic obstructive pulmonary disease with (acute) exacerbation (principal); J96.21 Acute and chronic respiratory failure with hypoxia; J96.22 Acute and chronic respiratory failure with hypercapnia; I50.33 Acute on chronic diastolic (congestive) heart failure; G92 Toxic encephalopathy; K86.1 Other chronic pancreatitis; N17.9 Acute kidney failure, unspecified; R44.3 Hallucinations, unspecified; F11.921 Opioid use, unspecified with intoxication delirium; F11.20 Opioid dependence, uncomplicated; I13.0 Hypertensive heart and chronic kidney disease with heart failure and stage 1 through stage 4 chronic kidney disease, or unspecified chronic kidney disease; E11.65 Type 2 diabetes mellitus with hyperglycemia; N40.0 Benign prostatic hyperplasia without lower urinary tract symptoms; D64.9 Anemia, unspecified; E78.5 Hyperlipidemia, unspecified; G43.809 Other migraine, not intractable, without status migrainosus; F41.8 Other specified anxiety disorders; M54.5 Low back pain; M19.90 Unspecified osteoarthritis, unspecified site; K21.9 Gastro-esophageal reflux disease without esophagitis; R91.1 Solitary pulmonary nodule; E87.5 Hyperkalemia; N18.9 Chronic kidney disease, unspecified; T40.2X5A Adverse effect of other opioids, initial encounter; Y92.230 Patient room in hospital as the place of occurrence of the external cause; Z79.4 Long term (current) use of insulin; Z87.891 Personal history of nicotine dependence; Z99.81 Dependence on supplemental oxygen
CPT/HCPCS: 36415; 36600; 71010-TC; 71020-TC; 71250-TC; 76775-TC; 80048; 80053; 81003; 82140; 82436; 82550; 82553; 82607; 82803; 83880; 84133; 84300; 84443; 84484; 85025; 86593; 87040; 87254; 87804; 93005; 93010; 94640; 99283-25

== ENCOUNTER 2016-10-14 15:22 | Inpatient (IN) | payer OTHER ==
[2016-10-14] MEDS ORDERED: ALBUTEROL SO4 2.5/IPRATROPIUM 0.5 INH SOL 3 ML VIAL.NEB. NEB ONE ×6 (16:38→21:55)
[2016-10-14] MEDS ORDERED: FUROSEMIDE 40 MG/4 ML INJECTABLE VIAL IVPUSH ONE (16:39)
[2016-10-14] MEDS ORDERED: FUROSEMIDE 40 MG/4 ML INJECTABLE VIAL ONE (17:06)
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
[2016-10-14] MEDS ORDERED: predniSONE 20 MG TABLET (UD) PO ONE (17:25)
[2016-10-14 17:31] LABS: BASOPHIL 0.3 % (0-2.0); EOSINOPHIL 0.3 % (0-4.5); MCH 30.5 pg (25.7-33.7); MEAN CELL VOLUME 92.4 fl (80-96); MEAN PLT VOLUME 10.2 fl (7.5-11.1); NEUTROPHILS 85.9 % (42.8-82.8); PLATELET COUNT 144 K/MM3 (134-434); RDW 15.8 % (11.9-15.9); WHITE BLOOD COUNT 12.1 K/mm3 (4.0-10.0)
[2016-10-14] MEDS ORDERED: LEVOFLOXACIN 500 MG IVPB 100 ML IVPB ONE ×2 (18:29→20:04)
[2016-10-14] MEDS ORDERED: predniSONE 20 MG TABLET (UD) ONE (18:31)
[2016-10-14 18:36] LABS: ANION GAP 11 (8-16); BILIRUBIN,TOTAL 0.2 mg/dL (0.2-1.0); CALCIUM 8.9 mg/dL (8.5-10.1); CO2 29 mmol/L (21-32); CREATININE 1.6 mg/dL (0.7-1.3); GLUCOSE,RANDOM 114 mg/dL (74-106); SGOT/AST 22 U/L (15-37); SGPT/ALT 30 U/L (12-78); TOT PROT 6.3 g/dl (6.4-8.2)
[2016-10-14 18:39] LABS: ALK PHOS 44 U/L (45-117); TROPONIN I < 0.02 ng/ml (0.00-0.05)
[2016-10-14] MEDS ORDERED: MAGNESIUM SULF 50% (8.12 MEQ/2 ML-1 GM VIAL) IVPB ONE (19:12)
[2016-10-14] MEDS ORDERED: OXYCODONE/APAP 5/325MG COMBO TABLET PO ONE (19:15)
[2016-10-14] MEDS ORDERED: HYDROmorphone HCL CARPU-JECT 1 MG/1 ML DISP.SYRIN ONE (20:04)
[2016-10-14] MEDS ORDERED: HYDROmorphone HCL CARPU-JECT 1 MG/1 ML DISP.SYRIN IVPUSH ONE (20:04)
[2016-10-14 20:29] LABS: URINE APPEARANCE CLEAR; URINE BILIRUBIN NEGATIVE (NEGATIVE); URINE BLOOD NEGATIVE (NEGATIVE); URINE COLOR COLORLESS; URINE GLUCOSE (UA) NEGATIVE (NEGATIVE); URINE KETONE NEGATIVE (NEGATIVE); URINE LEUK ESTERASE NEGATIVE (NEGATIVE); URINE NITRITE NEGATIVE (NEGATIVE); URINE PROTEIN NEGATIVE (NEGATIVE); URINE UROBILINOGEN NEGATIVE E.U./dl (0.2-1.0)
[2016-10-14] MEDS ORDERED: MAGNESIUM SULF 50% (8.12 MEQ/2 ML-1 GM VIAL) ONE (20:36)
[2016-10-14] MEDS ORDERED: DOCUSATE SODIUM 100 MG CAPSULE (FP) PO PRN (21:18)
[2016-10-14] MEDS ORDERED: AZITHROMYCIN 250 MG TABLET (FP) PO ONE (21:18)
[2016-10-14] MEDS ORDERED: diazePAM 2 MG TABLET PO PRN (21:18)
[2016-10-14] MEDS ORDERED: ACETAMINOPHEN 325 MG TABLET (FP) PO PRN (21:18)
[2016-10-14] MEDS ORDERED: SODIUM CHLORIDE NASAL SPRAY 44 ML BOTTLE NS PRN (21:18)
[2016-10-14] MEDS ORDERED: guaiFENesin/CODEINE 5 ML UNIT-DOSE CUPS PO PRN (21:18)
[2016-10-14] MEDS: ALBUTEROL SO4 2.5/IPRATROPIUM 0.5 INH SOL 3 ML VIAL.NEB. NEB PRN (21:49)
[2016-10-14] MEDS ORDERED: LACTULOSE 20 GM/30 ML UDC (FOR ORAL USE ONLY) ONE (21:53)
[2016-10-14] MEDS ORDERED: fentaNYL 75mcg/hr PATCH.TD72 ONE (21:54)
[2016-10-14] MEDS ORDERED: AZITHROMYCIN 250 MG TABLET (FP) ONE (21:54)
[2016-10-14] MEDS ORDERED: HEPARIN NA (PORCINE) 5,000 UNITS/ML 1ML VIAL ONE (21:54)
[2016-10-14] MEDS ORDERED: busPIRone HCL 5 MG TABLET ONE (21:55)
[2016-10-14] MEDS ORDERED: methylPREDNISolone NA SUCC 40 MG/1 ML VIAL ONE (21:55)
[2016-10-14] MEDS: FENTANYL PATCH WASTE MC PRN (22:18)
[2016-10-14] MEDS: fentaNYL 75mcg/hr PATCH.TD72 TD SCH (22:19)
[2016-10-14] MEDS: busPIRone HCL 5 MG TABLET PO SCH (22:20)
[2016-10-14] MEDS: methylPREDNISolone NA SUCC 40 MG/1 ML VIAL IVPB SCH (22:20)
[2016-10-14] MEDS: LACTULOSE 20 GM/30 ML UDC (FOR ORAL USE ONLY) PO SCH (22:20)
[2016-10-14] MEDS: HEPARIN NA (PORCINE) 5,000 UNITS/ML 1ML VIAL SQ SCH (22:20)
[2016-10-14] MEDS: BUDESONIDE/FORMETEROL FUMARATE 160/4.5 mcg INHALER IH SCH (22:21)
[2016-10-14] MEDS: TERAZOSIN HCL 5 MG CAPSULE PO SCH (22:50)
[2016-10-14] MEDS: INSULIN SLIDING SCALE (NOVOLOG) 1 VIAL SQ SCH (22:50)
[2016-10-14] MEDS ORDERED: INSULIN REGULAR HUMAN 100 UNITS/ML *VIAL ONE (23:54)
[2016-10-15] MEDS: SENNOSIDES 8.6MG TABLET (FP) PO SCH ×2 (00:01→22:15)
[2016-10-15] MEDS ORDERED: oxyCODONE HCL 5 MG TABLET ONE (02:06)
[2016-10-15] MEDS: oxyCODONE HCL 5 MG TABLET PO PRN (02:18)
[2016-10-15] MEDS ORDERED: INSULIN REGULAR HUMAN 100 UNITS/ML *VIAL ONE (02:31)
[2016-10-15] MEDS ORDERED: ALBUTEROL SO4 2.5/IPRATROPIUM 0.5 INH SOL 3 ML VIAL.NEB. NEB ONE (02:34)
[2016-10-15] MEDS ORDERED: methylPREDNISolone NA SUCC 40 MG/1 ML VIAL ONE (02:40)
[2016-10-15] MEDS: methylPREDNISolone NA SUCC 40 MG/1 ML VIAL IVPB SCH ×3 (02:53→17:54)
[2016-10-15] MEDS ORDERED: INSULIN (NOVOLOG MIX 70/30) 100 UNITS/ML MDV SQ SCH (07:00)
[2016-10-15] MEDS: INSULIN (NOVOLOG MIX 70/30) 100 UNITS/ML MDV SQ SCH ×2 (07:55→16:54)
[2016-10-15] MEDS: GEMFIBROZIL 600 MG TABLET (FP) PO SCH ×2 (07:55→16:55)
[2016-10-15] MEDS: sitaGLIPtin PHOSPHATE 25 MG TABLET (FP) PO SCH (07:55)
[2016-10-15] MEDS: INSULIN SLIDING SCALE (NOVOLOG) 1 VIAL SQ SCH ×4 (07:55→22:15)
[2016-10-15] MEDS ORDERED: TAMSULOSIN HCL 0.4 MG CAP.ER.24H (FP) ONE (08:02)
[2016-10-15] MEDS ORDERED: INSULIN (NOVOLOG MIX 70/30) 100 UNITS/ML MDV SQ ONE ×3 (08:04→17:05)
[2016-10-15] MEDS: TAMSULOSIN HCL 0.4 MG CAP.ER.24H (FP) PO SCH (08:05)
[2016-10-15] MEDS ORDERED: ACLIDINIUM BROMIDE 400 MCG/INH AERO.POWD IH SCH (10:00)
[2016-10-15] MEDS ORDERED: cefTRIAXone 2 GM/100 ML BAG (PRE-DOCKED) IVPB SCH (10:00)
[2016-10-15] MEDS ORDERED: CEFTRIAXONE 2 GM in DEXTROSE 5%-WATER - 100 ML IVPB SCH (10:00)
[2016-10-15] MEDS: ALBUTEROL SO4 2.5/IPRATROPIUM 0.5 INH SOL 3 ML VIAL.NEB. NEB PRN ×3 (10:20→19:50)
--- NOTE | 2016-10-15 10:39 | HP ---
Admitting History and Physical - Primary Care Physician PCP: Misti Crenshaw - Admission Chief Complaint: difficultly breathing and leg swelling History of Present Illness: The patient is a 71 year old male with a significant past medical history of CHF , CKD, HTN, HL, DM, COPD, back pain, bph, anemia, pancreatitis, who presents to the emergency department today for further evaluation of cough since 09/28/16. The patient was recently admitted and treated for COPD and pneumonia. The patient reported that at home he is on 2L of O2 at home. per patient he says his breathing got worse when he got home after discharge and his legs started to swell up so he came to the ER,in ER he got iv steroids anb abx and he says that today his breathing slightly better - Past Medical History DIE TRIPPER: Yes: Migraine Cardiovascular: Yes: CHF, HTN, Hyperlipdemia Pulmonary: Yes: COPD, O2 Dependent Gastrointestinal: Yes: GERD Renal/: Yes: Renal Inusuff, BPH, Cancer, Hematuria, UTI, Other (CKD) Heme/Onc: Yes: Anemia Psych: Yes: Anxiety Musculoskeletal: Yes: Chronic low back pain, Osteoarthritis Endocrine: Yes: Diabetes Mellitus - Past Surgical History Past Surgical History: Yes: Colonoscopy (Done last December (2013) negative for significant pathology) - Smoking History Smoking history: Never smoked Have you smoked in the past 12 months: Yes Aproximately how many cigarettes per day: 2 If you are a former smoker, when did you quit?: 2013 - Alcohol/Substance Use Hx Alcohol Use: No Home Medications - Allergies Allergies/Adverse Reactions: Allergies Allergy/AdvReac Type Severity Reaction Status Date / Time No Known Drug Allergies Allergy Verified 10/15/16 10:44 HOT PEPPER Allergy SNEEZING Uncoded 10/15/16 10:44 - Home Medications Home Medications: Ambulatory Orders Aspirin [ASA -] 81 mg PO Q2D@1000 #30 tab.chew 12/27/14 Gemfibrozil [Lopid -] 600 mg PO BID #180 tablet 12/27/14 Terazosin HCl [Hytrin -] 5 mg PO HS #30 capsule 12/27/14 Cyanocobalamin [Vitamin B12 -] 1 g PO DAILY 12/19/15 Lactulose 10 gm PO DAILY 12/20/15 Iron 325 mg PO BID 02/22/16 Tamsulosin HCl [Flomax -] 0.4 mg PO BID 02/22/16 FENTANYL 75mcg PATCH [DURAGESIC 75mcg PATCH -] 1 patch TD Q72H 02/23/16 Albuterol Sulfate Inhaler - [Ventolin HFA Inhaler -] 1 - 2 inh PO Q4H #1 inhaler 03/11/16 Docusate Sodium [Colace -] 100 mg PO BID #60 capsule 03/11/16 Diltiazem Cd [Cardizem Cd -] 120 mg PO DAILY 05/05/16 Naloxegol Oxalate [Movantik] 25 mg PO DAILY PRN 05/05/16 Sitagliptin Phosphate [Januvia] 25 mg PO DAILY 05/05/16 Zolpidem Tartrate [Ambien] 10 mg PO HS PRN 05/05/16 Furosemide [Lasix -] 60 mg PO DAILY tablet 05/09/16 Metoclopramide HCl [Reglan -] 5 mg PO TIDAC tablet 05/09/16 Sennosides [Senna -] 2 tab PO HS PRN #0 tablet 05/09/16 Oxycodone HCl/Acetaminophen [Percocet 10-325 mg Tablet] 1 each PO TID PRN #60 tablet MDD 3 05/10/16 Allopurinol [Zyloprim -] 100 mg PO DAILY 09/28/16 Ranitidine HCl 300 mg PO DAILY 09/28/16 Sennosides [Senokot] 8.6 mg PO DAILY 09/28/16 Acetaminophen [Tylenol .Regular Strength -] 650 mg PO Q6H PRN #0 tablet Budesonide/Formeterol Fumarate [SYMBICORT 160/4.5mcg -] 2 puff IH BID #1 inhaler 10/07/16 Buspirone HCl [Buspar -] 10 mg PO BID #60 tablet 10/07/16 Diazepam [Valium] 2 mg PO HS PRN #5 tablet MDD 1 10/07/16 Guaifenesin AC [Robitussin AC -] 10 ml PO Q8H PRN #1 bottle MDD 30ml 10/07/16 Insulin Aspart Prot/Insuln Asp [Novolog Mix 70-30 Flexpen Syrn] 32 unit SQ BID # 1 box 10/07/16 Losartan Potassium [Cozaar -] 25 mg PO DAILY #30 tablet 02/05/17 Prednisone 10 mg PO BID #38 tablet 10/07/16 Roflumilast [Daliresp -] 500 mcg PO DAILY #30 tablet 10/07/16 Sodium Chloride Nasal [place] [[place] Nasal [place] -] 2 spray NS BID PRN #1 bottle 10/07/16 Tiotropium [place] [Spiriva] 1 puff IH DAILY #1 inh 10/07/16 Amoxicillin - [Amoxicillin 875mg Tablet -] 875 mg PO BID 10/14/16 Family Disease History - Family Disease History Family Disease History: Diabetes: Brother, Heart Disease: Brother Review of Systems - Review of Systems Respiratory: reports: SOB Musculoskeletal: reports: Other (leg swelling) Physical Examination Vital Signs: Vital Signs Temperature 98.8 F 10/14/16 15:25 Pulse Rate 75 10/15/16 07:10 Respiratory Rate 19 10/15/16 07:10 Blood Pressure 123/84 10/15/16 07:10 O2 Sat by Pulse Oximetry (%) 95 10/15/16 07:40 Constitutional: Yes: Calm Cardiovascular: Yes: Regular Rate and Rhythm, S1, S2 Respiratory: Yes: On Nasal O2, Rhonchi Gastrointestinal: Yes: Normal Bowel Sounds, Soft Edema: Yes Edema: LLE: 2+, RLE: 2+ Neurological: Yes: Alert, Oriented Imaging - Results Chest X-ray: Report Reviewed (bibasilar atelectasis and possible infiltrate) Problem List - Problems (1) Leg edema Assessment/Plan: renal lasix iv monitor lytes Code(s): R60.0 - LOCALIZED EDEMA Qualifiers: Laterality: bilateral Qualified Code(s): R60.0 - Localized edema (2) COPD exacerbation Assessment/Plan: pulm steroids symbicort daliresp spiriva paitent doesnot want turdoza oxygen [place] Code(s): J44.1 - CHRONIC OBSTRUCTIVE PULMONARY DISEASE W (ACUTE) EXACERBATION (3) HTN (hypertension) Assessment/Plan: kwame cortez Code(s): I10 - ESSENTIAL (PRIMARY) HYPERTENSION Qualifiers: Hypertension type: essential hypertension Qualified Code(s): I10 - Essential (primary) hypertension (4) Hypertriglyceridemia Assessment/Plan: lpoid Code(s): E78.1 - PURE HYPERGLYCERIDEMIA (5) BPH (benign prostatic hyperplasia) Assessment/Plan: hytrin and flomax Code(s): N40.0 - BENIGN PROSTATIC HYPERPLASIA WITHOUT LOWER URINRY TRACT SYMP (6) Chronic back pain greater than 3 months duration Assessment/Plan: fentanyl and oxycodone Code(s): M54.9 - DORSALGIA, UNSPECIFIED G89.29 - OTHER CHRONIC PAIN
[2016-10-15] MEDS: ASPIRIN 81 MG CHEWABLE TABLETS PO SCH (10:45)
[2016-10-15] MEDS: ROFLUMILAST 500 MCG TABLET PO SCH (10:45)
[2016-10-15] MEDS: ALLOPURINOL 100 MG TABLET (FP) PO SCH (10:45)
[2016-10-15] MEDS: BUDESONIDE/FORMETEROL FUMARATE 160/4.5 mcg INHALER IH SCH ×2 (10:45→22:47)
[2016-10-15] MEDS: LACTULOSE 20 GM/30 ML UDC (FOR ORAL USE ONLY) PO SCH ×2 (10:45→22:13)
[2016-10-15] MEDS: HEPARIN NA (PORCINE) 5,000 UNITS/ML 1ML VIAL SQ SCH ×2 (10:45→22:14)
[2016-10-15] MEDS: FERROUS SO4 325 MG TABLET (FP) PO SCH (10:45)
[2016-10-15] MEDS: LOSARTAN POTASSIUM 25 MG TABLET PO SCH (10:45)
[2016-10-15] MEDS ORDERED: HEPARIN NA (PORCINE) 5,000 UNITS/ML 1ML VIAL ONE (10:47)
[2016-10-15] MEDS ORDERED: CEFTRIAXONE 100 ML IVPB ONE (10:47)
[2016-10-15] MEDS ORDERED: FUROSEMIDE 40 MG/4 ML INJECTABLE VIAL ONE (10:48)
[2016-10-15] MEDS: busPIRone HCL 5 MG TABLET PO SCH ×2 (11:05→22:14)
[2016-10-15 11:19] VITALS: BMI 37.3
--- NOTE | 2016-10-15 12:05 | EKG ---
Test Reason : Blood Pressure : / mmHG Vent. Rate : 086 BPM Atrial Rate : 086 BPM P-R Int : 172 ms QRS Dur : 094 ms QT Int : 346 ms P-R-T Axes : 025 -29 060 degrees QTc Int : 414 ms SINUS RHYTHM WITH OCCASIONAL PREMATURE VENTRICULAR COMPLEXES AND PREMATURE ATRIAL COMPLEXES POSSIBLE LEFT ATRIAL ENLARGEMENT LEFT VENTRICULAR HYPERTROPHY ABNORMAL ECG WHEN COMPARED WITH ECG OF 28-SEP-2016 12:02, NO SIGNIFICANT CHANGE WAS FOUND Confirmed by SCOTT ROCHE MD ([id number]) on 10/15/2016 12:05:07 PM Referred By: Confirmed By:SCOTT ROCHE MD
[2016-10-15] MEDS ORDERED: PT OWN MED DRAWER 7, Y5N ONE ×2 (12:18→16:48)
--- NOTE | 2016-10-15 14:52 | CON.PULM ---
Consult Consult Specialty:: PULMONARY Referred by:: Dr. King Reason for Consultation:: shortness of breath - History of Present Illness Chief Complaint: shortness of breath History of Present Illness: 71yo male with h/o HTN, DM, hyperlipidemia, CKD, LV diastolic dysfunction, anemia, BPH, COPD, chronic hypoxic respiratory failure on home O2, recently admitted for COPD exacerbation and pneumonia who presents with worsening shortness of breath. Denies any chest pain or discomfort. No palpitations. No fevers, chillsor sweats. Reports a nonproductive cough and occasional wheezing. He also reports increase in his leg swelling as well as orthopnea. 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 Cardio/Vascular: Yes: CHF, HTN, Hyperlipdemia Pulmonary: Yes: COPD, O2 Dependent Gastrointestinal: Yes: GERD Renal/: Yes: Renal Inusuff, BPH, Cancer, Hematuria, UTI, Other (CKD) Psych: Yes: Anxiety Musculoskeletal: Yes: Chronic low back pain, Osteoarthritis Endocrine: Yes: Diabetes Mellitus - Past Surgical History Past Surgical History: Yes: Colonoscopy (Done last December) negative for significant pathology) - Alcohol/Substance Use Hx Alcohol Use: No - Smoking History Smoking history: Never smoked Have you smoked in the past 12 months: Yes Aproximately how many cigarettes per day: 2 If you are a former smoker, when did you quit?: 2012 - Social History Usual Living Arrangement: Alone Home Medications - Allergies Allergies/Adverse Reactions: Allergies Allergy/AdvReac Type Severity Reaction Status Date / Time No Known Drug Allergies Allergy Verified 10/15/16 10:44 HOT PEPPER Allergy SNEEZING Uncoded 10/15/16 10:44 - Home Medications Home Medications: Ambulatory Orders Aspirin [ASA -] 81 mg PO Q2D@1000 #30 tab.chew 12/27/14 Gemfibrozil [Lopid -] 600 mg PO BID #180 tablet 12/27/14 Terazosin HCl [Hytrin -] 5 mg PO HS #30 capsule 12/27/14 Cyanocobalamin [Vitamin B12 -] 1 g PO DAILY 12/19/15 Lactulose 10 gm PO DAILY 12/20/15 Iron 325 mg PO BID 02/22/16 Tamsulosin HCl [Flomax -] 0.4 mg PO BID 02/22/16 FENTANYL 75mcg PATCH [DURAGESIC 75mcg PATCH -] 1 patch TD Q72H 02/23/16 Albuterol Sulfate Inhaler - [Ventolin HFA Inhaler -] 1 - 2 inh PO Q4H #1 inhaler 03/11/16 Docusate Sodium [Colace -] 100 mg PO BID #60 capsule 03/11/16 Diltiazem Cd [Cardizem Cd -] 120 mg PO DAILY 05/05/16 Naloxegol Oxalate [Movantik] 25 mg PO DAILY PRN 05/05/16 Sitagliptin Phosphate [Januvia] 25 mg PO DAILY 05/05/16 Zolpidem Tartrate [Ambien] 10 mg PO HS PRN 05/05/16 Furosemide [Lasix -] 60 mg PO DAILY tablet 05/09/16 Metoclopramide HCl [Reglan -] 5 mg PO TIDAC tablet 05/09/16 Sennosides [Senna -] 2 tab PO HS PRN #0 tablet 05/09/16 Oxycodone HCl/Acetaminophen [Percocet 10-325 mg Tablet] 1 each PO TID PRN #60 tablet MDD 3 05/10/16 Allopurinol [Zyloprim -] 100 mg PO DAILY 09/28/16 Ranitidine HCl 300 mg PO DAILY 09/28/16 Sennosides [Senokot] 8.6 mg PO DAILY 09/28/16 Acetaminophen [Tylenol .Regular Strength -] 650 mg PO Q6H PRN #0 tablet Budesonide/Formeterol Fumarate [SYMBICORT 160/4.5mcg -] 2 puff IH BID #1 inhaler 10/07/16 Buspirone HCl [Buspar -] 10 mg PO BID #60 tablet 10/07/16 Diazepam [Valium] 2 mg PO HS PRN #5 tablet MDD 1 10/07/16 Guaifenesin AC [Robitussin AC -] 10 ml PO Q8H PRN #1 bottle MDD 30ml 10/07/16 Insulin Aspart Prot/Insuln Asp [Novolog Mix 70-30 Flexpen Syrn] 32 unit SQ BID # 1 box 10/07/16 Losartan Potassium [Cozaar -] 25 mg PO DAILY #30 tablet 10/07/16 Prednisone 10 mg PO BID #38 tablet 10/07/16 Roflumilast [Daliresp -] 500 mcg PO DAILY #30 tablet 10/07/16 Sodium Chloride Nasal [place] [[place] Nasal [place] -] 2 spray NS BID PRN #1 bottle 10/07/16 Tiotropium [place] [Spiriva] 1 puff IH DAILY #1 inh 10/07/16 Amoxicillin - [Amoxicillin 875mg Tablet -] 875 mg PO BID 10/14/16 Family Disease History - Family Disease History Family Disease History: Diabetes: Brother, Heart Disease: Brother Review of Systems - Review of Systems Constitutional: reports: Weakness. denies: Chills, Fever Eyes: denies: Recent Change in Vision HENT: denies: Nasal Congestion, Throat Pain Neck: denies: Stiffness, Tenderness Cardiovascular: reports: Edema, Shortness of Breath. denies: Chest Pain, Palpitations Respiratory: reports: Cough, Exercise Intolerance, Orthopnea, SOB, SOB on Exertion, Wheezing. denies: Hemoptysis Gastrointestinal: denies: Abdominal Pain, Nausea, Vomiting Genitourinary: denies: Dysuria, Hematuria Neurological: denies: Dizziness, Headache Endocrine: denies: Unexplained Weight Gain, Unexplained Weight Loss Physical Exam Vital Sings: Vital Signs Temperature 97.6 F 10/15/16 12:47 Pulse Rate 58 L 10/15/16 12:47 Respiratory Rate 20 10/15/16 12:47 Blood Pressure 126/45 10/15/16 12:47 O2 Sat by Pulse Oximetry (%) 95 10/15/16 12:44 Constitutional: Yes: Calm Eyes: Yes: Conjunctiva Clear, EOM Intact HENT: Yes: Atraumatic, Normocephalic Neck: Yes: Supple, Trachea Midline Cardiovascular: Yes: Regular Rate and Rhythm Respiratory: Yes: Rhonchi ...Clubbing: No Gastrointestinal: Yes: Normal Bowel Sounds, Soft, Abdomen, Obese. No: Tenderness Edema: Yes Neurological: Yes: Alert, Oriented Imaging - Results Chest X-ray: Report Reviewed, Image Reviewed (bibasilar atelectasis/congestion, cardiomegaly) Problem List - Problems (1) Acute on chronic diastolic (congestive) heart failure Code(s): I50.33 - ACUTE ON CHRONIC DIASTOLIC (CONGESTIVE) HEART FAILURE (2) COPD (chronic obstructive pulmonary disease) Code(s): J44.9 - CHRONIC OBSTRUCTIVE PULMONARY DISEASE, UNSPECIFIED Qualifiers : COPD type: chronic bronchitis (3) Chronic respiratory failure with hypoxia Code(s): J96.11 - CHRONIC RESPIRATORY FAILURE WITH HYPOXIA (4) Atelectasis Code(s): J98.11 - ATELECTASIS (5) Diabetes mellitus, insulin dependent (IDDM), uncontrolled Code(s): E10.65 - TYPE 1 DIABETES MELLITUS WITH HYPERGLYCEMIA Qualifiers: Diabetes mellitus complication status: without complication Qualified Code(s): E10.9 - Type 1 diabetes mellitus without complications (6) HTN (hypertension) Code(s): I10 - ESSENTIAL (PRIMARY) HYPERTENSION Qualifiers: Hypertension type: essential hypertension Qualified Code(s): I10 - Essential (primary) hypertension Assessment/Plan Acute on Chronic LV Diastolic Heart Failure COPD Atelectasis Recent Pneumonia Chronic Hypoxic Respiratory Failure CKD HTN DM Hyperlipidemia - IV lasix - monitor urine output, creatinine - I/Os, daily weights - echocardiogram - will consult cardiology (sees Dr. Lawton) as pt need adjustment of his home cardiac meds - inhaled bronchodilators - O2 to keep SpO2 >90% - suspect acute decompensation from CHF rather than COPD, can taper steroids - on empiric antibiotics, can d/c if cultures negative - incentive spirometry - PO as tolerated - DVT prophylaxis Thank you for this consult Carlso Yanez MD
[2016-10-15] MEDS ORDERED: HYDROmorphone HCL CARPU-JECT 1 MG/1 ML DISP.SYRIN IVPB PRN (15:18)
--- NOTE | 2016-10-15 15:23 | CONSULT ---
Consult Consult Specialty:: Nephrology Reason for Consultation:: CKD - History of Present Illness Chief Complaint: shortness of breath History of Present Illness: Pt is a 71 year old male with CKD, CHF, DM, BPH, COPD and CHF who presents to the ER for worsening shortness of breath. He was discharged last week for similar symptoms. He did however have an episode of BRAYAN at the time. I was called to evaluate him for elevated creatinine. He denies dysuria or hematuria. He has chronic edema of his legs. He denies fevers or chills. 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 Cardio/Vascular: Yes: CHF, HTN, Hyperlipdemia Pulmonary: Yes: COPD, O2 Dependent Gastrointestinal: Yes: GERD Renal/: Yes: Renal Inusuff, BPH, Cancer, Hematuria, UTI, Other (CKD) Psych: Yes: Anxiety Musculoskeletal: Yes: Chronic low back pain, Osteoarthritis Endocrine: Yes: Diabetes Mellitus - Past Surgical History Past Surgical History: Yes: Colonoscopy (Done last December) negative for significant pathology) - Alcohol/Substance Use Hx Alcohol Use: No - Smoking History Smoking history: Never smoked Have you smoked in the past 12 months: Yes Aproximately how many cigarettes per day: 2 If you are a former smoker, when did you quit?: 2012 - Social History Usual Living Arrangement: Alone Home Medications - Allergies Allergies/Adverse Reactions: Allergies Allergy/AdvReac Type Severity Reaction Status Date / Time No Known Drug Allergies Allergy Verified 10/15/16 10:44 HOT PEPPER Allergy SNEEZING Uncoded 10/15/16 10:44 - Home Medications Home Medications: Ambulatory Orders Aspirin [ASA -] 81 mg PO Q2D@1000 #30 tab.chew 12/27/14 Gemfibrozil [Lopid -] 600 mg PO BID #180 tablet 12/27/14 Terazosin HCl [Hytrin -] 5 mg PO HS #30 capsule 12/27/14 Cyanocobalamin [Vitamin B12 -] 1 g PO DAILY 12/19/15 Lactulose 10 gm PO DAILY 12/20/15 Iron 325 mg PO BID 02/22/16 Tamsulosin HCl [Flomax -] 0.4 mg PO BID 02/22/16 FENTANYL 75mcg PATCH [DURAGESIC 75mcg PATCH -] 1 patch TD Q72H 02/23/16 Albuterol Sulfate Inhaler - [Ventolin HFA Inhaler -] 1 - 2 inh PO Q4H #1 inhaler 03/11/16 Docusate Sodium [Colace -] 100 mg PO BID #60 capsule 03/11/16 Diltiazem Cd [Cardizem Cd -] 120 mg PO DAILY 05/05/16 Naloxegol Oxalate [Movantik] 25 mg PO DAILY PRN 05/05/16 Sitagliptin Phosphate [Januvia] 25 mg PO DAILY 05/05/16 Zolpidem Tartrate [Ambien] 10 mg PO HS PRN 05/05/16 Furosemide [Lasix -] 60 mg PO DAILY tablet 05/09/16 Metoclopramide HCl [Reglan -] 5 mg PO TIDAC tablet 05/09/16 Sennosides [Senna -] 2 tab PO HS PRN #0 tablet 05/09/16 Oxycodone HCl/Acetaminophen [Percocet 10-325 mg Tablet] 1 each PO TID PRN #60 tablet MDD 3 05/10/16 Allopurinol [Zyloprim -] 100 mg PO DAILY 09/28/16 Ranitidine HCl 300 mg PO DAILY 09/28/16 Sennosides [Senokot] 8.6 mg PO DAILY 09/28/16 Acetaminophen [Tylenol .Regular Strength -] 650 mg PO Q6H PRN #0 tablet Budesonide/Formeterol Fumarate [SYMBICORT 160/4.5mcg -] 2 puff IH BID #1 inhaler 10/07/16 Buspirone HCl [Buspar -] 10 mg PO BID #60 tablet 10/07/16 Diazepam [Valium] 2 mg PO HS PRN #5 tablet MDD 1 10/07/16 Guaifenesin AC [Robitussin AC -] 10 ml PO Q8H PRN #1 bottle MDD 30ml 10/07/16 Insulin Aspart Prot/Insuln Asp [Novolog Mix 70-30 Flexpen Syrn] 32 unit SQ BID # 1 box 10/07/16 Losartan Potassium [Cozaar -] 25 mg PO DAILY #30 tablet 10/07/16 Prednisone 10 mg PO BID #38 tablet 10/07/16 Roflumilast [Daliresp -] 500 mcg PO DAILY #30 tablet 10/07/16 Sodium Chloride Nasal [place] [[place] Nasal [place] -] 2 spray NS BID PRN #1 bottle 10/07/16 Tiotropium [place] [Spiriva] 1 puff IH DAILY #1 inh 10/07/16 Amoxicillin - [Amoxicillin 875mg Tablet -] 875 mg PO BID 10/14/16 Family Disease History - Family Disease History Family Disease History: Diabetes: Brother, Heart Disease: Brother Review of Systems - Review of Systems Constitutional: reports: Malaise. denies: Chills, Fever Eyes: reports: No Symptoms HENT: reports: No Symptoms Neck: reports: No Symptoms Cardiovascular: reports: Edema, Shortness of Breath. denies: Chest Pain Respiratory: reports: Cough, SOB, SOB on Exertion Gastrointestinal: reports: No Symptoms Genitourinary: reports: No Symptoms Musculoskeletal: reports: No Symptoms Integumentary: reports: No Symptoms Neurological: reports: No Symptoms Endocrine: reports: No Symptoms Hematology/Lymphatic: reports: No Symptoms Psychiatric: reports: No Symptoms Physical Exam Vital Signs: Vital Signs Temperature 98.1 F 10/15/16 14:59 Pulse Rate 68 10/15/16 14:59 Respiratory Rate 16 10/15/16 14:59 Blood Pressure 130/78 10/15/16 14:59 O2 Sat by Pulse Oximetry (%) 95 10/15/16 12:44 Constitutional: Yes: Calm Eyes: Yes: Conjunctiva Clear HENT: Yes: Atraumatic Cardiovascular: Yes: S1, S2 Respiratory: Yes: On Nasal O2, Wheezes Gastrointestinal: Yes: Soft, Abdomen, Obese Renal/: Yes: WNL Musculoskeletal: Yes: WNL Edema: Yes Edema: LLE: 2+, RLE: 2+ Neurological: Yes: Oriented Psychiatric: Yes: Oriented Labs: Laboratory Tests 10/07/16 10/07/16 10/14/16 06:15 06:15 17:19 WBC 12.1 H RBC 2.95 L Hgb 10.0 L 9.0 L BUN 75 H Creatinine 2.2 H Urine Color Urine Appearance Urine pH Ur Specific [place] Urine Protein Urine Glucose (UA) Urine Ketones Urine Blood Urine Nitrite Urine Bilirubin Urine Urobilinogen 10/14/16 10/14/16 17:45 20:20 WBC RBC Hgb BUN 37 H D Creatinine 1.6 H D Urine Color Colorless Urine Appearance Clear Urine pH 7.0 D Ur Specific [place] 1.009 Urine Protein Negative Urine Glucose (UA) Negative Urine Ketones Negative Urine Blood Negative Urine Nitrite Negative Urine Bilirubin Negative Urine Urobilinogen Negative Imaging - Results Chest X-ray: Report Reviewed Problem List - Problems (1) COPD exacerbation Code(s): J44.1 - CHRONIC OBSTRUCTIVE PULMONARY DISEASE W (ACUTE) EXACERBATION (2) Chronic respiratory failure with hypoxia Code(s): J96.11 - CHRONIC RESPIRATORY FAILURE WITH HYPOXIA (3) Diabetes mellitus, insulin dependent (IDDM), uncontrolled Code(s): E10.65 - TYPE 1 DIABETES MELLITUS WITH HYPERGLYCEMIA Qualifiers: Diabetes mellitus complication status: without complication Qualified Code(s): E10.9 - Type 1 diabetes mellitus without complications (4) HTN (hypertension) Code(s): I10 - ESSENTIAL (PRIMARY) HYPERTENSION Qualifiers: Hypertension type: essential hypertension Qualified Code(s): I10 - Essential (primary) hypertension (5) Shortness of breath Code(s): R06.02 - SHORTNESS OF BREATH (6) Anemia Code(s): D64.9 - ANEMIA, UNSPECIFIED Qualifiers: Anemia type: unspecified anemia type (7) CHF (congestive heart failure) Code(s): I50.9 - HEART FAILURE, UNSPECIFIED Qualifiers: Congestive heart failure type: diastolic (8) CKD (chronic kidney disease) Code(s): N18.9 - CHRONIC KIDNEY DISEASE, UNSPECIFIED Qualifiers: Chronic kidney disease stage: unspecified stage Qualified Code(s): N18.9 - Chronic kidney disease, unspecified (9) COPD (chronic obstructive pulmonary disease) Code(s): J44.9 - CHRONIC OBSTRUCTIVE PULMONARY DISEASE, UNSPECIFIED Qualifiers : COPD type: chronic bronchitis (10) GERD (gastroesophageal reflux disease) Code(s): K21.9 - GASTRO-ESOPHAGEAL REFLUX DISEASE WITHOUT ESOPHAGITIS Assessment/Plan Current Medications Generic Name Dose Route Start Last Admin Trade Name Freq PRN Reason Stop Dose Admin Acetaminophen 650 mg 10/14/16 21:18 Tylenol - PO Q6H PRN FEVER OR PAIN Albuterol/Ipratropium 1 amp 10/14/16 21:18 10/15/16 11:53 Duoneb - NEB 1 amp Q6H PRN Administration SHORTNESS OF BREATH Allopurinol 100 mg 10/15/16 10:00 10/15/16 10:45 Zyloprim - PO 100 mg DAILY JOSE LUIS Administration Aspirin 81 mg 10/15/16 10:00 10/15/16 10:45 Asa - PO 81 mg DAILY JOSE LUIS Administration Budesonide/Formoterol Fumarate 2 puff 10/14/16 22:00 10/15/16 10:45 Symbicort 160/4.5mcg - IH 2 puff BID JOSE LUIS Administration Buspirone HCl 5 mg 10/14/16 22:00 10/15/16 11:05 Buspar - PO Not Given BID [facility] Ceftriaxone Sodium 2 gm 10/15/16 10:00 10/15/16 10:45 Rocephin 2gm Ivpb (Pre-Docked) IVPB 2 gm DAILY JOSE LUIS Administration Diltiazem HCl 120 mg 10/15/16 10:00 10/15/16 10:45 Cardizem Cd - PO 120 mg DAILY [facility] Administration Docusate Sodium 100 mg 10/14/16 21:18 Colace - PO Q8H PRN CONSTIPATION Fentanyl 1 patch 10/14/16 21:30 10/14/16 22:19 Duragesic 75mcg Patch - TD 1 patch Q72H [facility] Administration Ferrous Sulfate 325 mg 10/15/16 10:00 10/15/16 10:45 Feosol - PO 325 mg DAILY [facility] Administration Furosemide 40 mg 10/16/16 10:00 Lasix Injection - IVPUSH DAILY [facility] Gemfibrozil 600 mg 10/15/16 07:00 10/15/16 07:55 Lopid - PO 600 mg BID@0700,1630 [facility] Administration Guaifenesin/Codeine Phosphate 5 ml 10/14/16 21:18 Robitussin Ac - PO TID PRN COUGH Heparin Sodium (Porcine) 5,000 unit 10/14/16 22:00 10/15/16 10:45 Heparin - SQ 5,000 unit BID [facility] Administration Hydromorphone HCl 1 mg 10/15/16 15:18 Dilaudid Injection - IVPB HS PRN PAIN Insulin Aspart 1 vial 10/14/16 22:00 10/15/16 12:52 Novolog Vial Sliding Scale - SQ Not Given ACHS [facility] Protocol Insulin Aspart 35 units 10/15/16 07:00 10/15/16 07:55 Novolog Mix 70/30 Vial SQ 35 units BIDAC [facility] Administration Lactulose 20 gm 10/14/16 22:00 10/15/16 10:45 Cephulac (Oral Use) PO 20 gm BID JOSE LUIS Administration Losartan Potassium 25 mg 10/15/16 10:00 10/15/16 10:45 Cozaar - PO 25 mg DAILY JOSE LUIS Administration Methylprednisolone Sodium Succinate 40 mg 10/14/16 21:30 10/15/16 10:45 Solu-Medrol - IVPB 40 mg Q8H-IV JOSE LUIS Administration Miscellaneous 1 each 10/14/16 21:18 10/14/16 22:18 Duragesic Patch Waste MC 1 each PRN PRN Administration PAIN Oxycodone HCl 10 mg 10/14/16 21:18 10/15/16 02:18 Roxicodone - PO 10 mg Q6H PRN Administration PAIN Roflumilast 500 mcg 10/15/16 10:00 10/15/16 10:45 Daliresp - PO 500 mcg DAILY JOSE LUIS Administration Senna 1 tab 10/14/16 22:00 10/15/16 00:01 Senna - PO Not Given HS [facility] Sitagliptin Phosphate 25 mg 10/15/16 07:00 10/15/16 07:55 Januvia - PO 25 mg DAILY@0700 [facility] Administration Sodium Chloride 2 spray 10/14/16 21:18 [place] Nasal [place] - NS TID PRN NASAL CONGESTION Tamsulosin HCl 0.4 mg 10/15/16 08:30 10/15/16 08:05 Flomax - PO 0.4 mg DAILY@0830 [facility] Administration Terazosin HCl 5 mg 10/14/16 22:00 10/14/16 22:50 Hytrin - PO 5 mg HS [facility] Administration Tiotropium [place] 1 puff 10/16/16 10:00 Spiriva - IH DAILY [facility] Zolpidem Tartrate 5 mg 10/14/16 21:18 Ambien - PO HS PRN INSOMNIA Impression 1. CKD 2. DM 3. HTN 4. CHF 5. COPD 6. fluid overload 7. BPH 8. insomnia 9. narcotic dependence Plan - renal function is actually improved - repeat labs in am - cont with lasix - pulmonary evaluation - cont with oxygen and monitor pulse ox - elevate legs when possible - will follow Dr Nathan
[2016-10-15] MEDS ORDERED: INSULIN (NOVOLOG) ASPART 100 UNITS/ML 10ML VIAL ONE (17:05)
--- NOTE | 2016-10-15 17:14 | CON.CARD ---
Consult Consult Specialty:: Cardiology Referred by:: Carlos Yanez MD Reason for Consultation:: Dyspnea - History of Present Illness Chief Complaint: Dyspnea History of Present Illness: Patient is a 71 year old male with history of COPD with previous multiple exacerbations, chronic hypoxic respiratory failure on home O2,, HTN/HCVD, insulin-dependent Type 2 DM, anemia, LV diastolic dysfunction, and hypercholesterolemia presented with worsening shortness of breath, orthopnea, LE edema without chest pain, near or true syncope, palpitations. Reports a nonproductive cough and occasional wheezing, compliance with medication and diet. - History Source History Provided By: Patient Limitations to Obtaining History: No Limitations - Past Medical History MANAGER GENERATION: Yes: Migraine Cardio/Vascular: Yes: CHF, HTN, Hyperlipdemia Pulmonary: Yes: COPD, O2 Dependent Gastrointestinal: Yes: GERD Renal/: Yes: Renal Inusuff, BPH, Cancer, Hematuria, UTI, Other (CKD) Psych: Yes: Anxiety Musculoskeletal: Yes: Chronic low back pain, Osteoarthritis Endocrine: Yes: Diabetes Mellitus - Past Surgical History Past Surgical History: Yes: Colonoscopy (Done last December) negative for significant pathology) - Alcohol/Substance Use Hx Alcohol Use: No - Smoking History Smoking history: Never smoked Have you smoked in the past 12 months: Yes Aproximately how many cigarettes per day: 2 If you are a former smoker, when did you quit?: 2012 - Social History Usual Living Arrangement: Alone Home Medications - Allergies Allergies/Adverse Reactions: Allergies Allergy/AdvReac Type Severity Reaction Status Date / Time No Known Drug Allergies Allergy Verified 10/15/16 10:44 HOT PEPPER Allergy SNEEZING Uncoded 10/15/16 10:44 - Home Medications Home Medications: Ambulatory Orders Aspirin [ASA -] 81 mg PO Q2D@1000 #30 tab.chew 12/27/14 Gemfibrozil [Lopid -] 600 mg PO BID #180 tablet 12/27/14 Terazosin HCl [Hytrin -] 5 mg PO HS #30 capsule 12/27/14 Cyanocobalamin [Vitamin B12 -] 1 g PO DAILY 12/19/15 Lactulose 10 gm PO DAILY 12/20/15 Iron 325 mg PO BID 02/22/16 Tamsulosin HCl [Flomax -] 0.4 mg PO BID 02/22/16 FENTANYL 75mcg PATCH [DURAGESIC 75mcg PATCH -] 1 patch TD Q72H 02/23/16 Albuterol Sulfate Inhaler - [Ventolin HFA Inhaler -] 1 - 2 inh PO Q4H #1 inhaler 03/11/16 Docusate Sodium [Colace -] 100 mg PO BID #60 capsule 03/11/16 Diltiazem Cd [Cardizem Cd -] 120 mg PO DAILY 05/05/16 Naloxegol Oxalate [Movantik] 25 mg PO DAILY PRN 05/05/16 Sitagliptin Phosphate [Januvia] 25 mg PO DAILY 05/05/16 Zolpidem Tartrate [Ambien] 10 mg PO HS PRN 05/05/16 Furosemide [Lasix -] 60 mg PO DAILY tablet 05/09/16 Metoclopramide HCl [Reglan -] 5 mg PO TIDAC tablet 05/09/16 Sennosides [Senna -] 2 tab PO HS PRN #0 tablet 05/09/16 Oxycodone HCl/Acetaminophen [Percocet 10-325 mg Tablet] 1 each PO TID PRN #60 tablet MDD 3 05/10/16 Allopurinol [Zyloprim -] 100 mg PO DAILY 09/28/16 Ranitidine HCl 300 mg PO DAILY 09/28/16 Sennosides [Senokot] 8.6 mg PO DAILY 09/28/16 Acetaminophen [Tylenol .Regular Strength -] 650 mg PO Q6H PRN #0 tablet Budesonide/Formeterol Fumarate [SYMBICORT 160/4.5mcg -] 2 puff IH BID #1 inhaler 10/07/16 Buspirone HCl [Buspar -] 10 mg PO BID #60 tablet 10/07/16 Diazepam [Valium] 2 mg PO HS PRN #5 tablet MDD 1 10/07/16 Guaifenesin AC [Robitussin AC -] 10 ml PO Q8H PRN #1 bottle MDD 30ml 10/07/16 Insulin Aspart Prot/Insuln Asp [Novolog Mix 70-30 Flexpen Syrn] 32 unit SQ BID # 1 box 10/07/16 Losartan Potassium [Cozaar -] 25 mg PO DAILY #30 tablet 10/07/16 Prednisone 10 mg PO BID #38 tablet 10/07/16 Roflumilast [Daliresp -] 500 mcg PO DAILY #30 tablet 10/07/16 Sodium Chloride Nasal [place] [[place] Nasal [place] -] 2 spray NS BID PRN #1 bottle 10/07/16 Tiotropium [place] [Spiriva] 1 puff IH DAILY #1 inh 10/07/16 Amoxicillin - [Amoxicillin 875mg Tablet -] 875 mg PO BID 10/14/16 Family Disease History - Family Disease History Family Disease History: Diabetes: Brother, Heart Disease: Brother Review of Systems - Review of Systems Cardiovascular: reports: Edema, Shortness of Breath Vital Signs: Vital Signs Temperature 98.1 F 10/15/16 14:59 Pulse Rate 68 10/15/16 14:59 Respiratory Rate 16 10/15/16 14:59 Blood Pressure 130/78 10/15/16 14:59 O2 Sat by Pulse Oximetry (%) 95 10/15/16 12:44 Constitutional: Yes: No Distress, Calm Neck: Yes: Supple Respiratory: Yes: Regular Gastrointestinal: Yes: Normal Bowel Sounds, Soft, Abdomen, Obese Cardiovascular: Yes: Regular Rate and Rhythm JVD: No Carotid Bruit: No Heart Sounds: Yes: S1, S2 Murmur: Yes: Systolic Murmur, Grade 1 Edema: Yes Edema: LLE: 2+, RLE: 2+ - Other Data Labs, Other Data: INR, PTT INR 1.00 (0.82-1.09) 10/14/16 17:19 SR @ 86 PVC, PAC Ejection Fraction %: LVEF > or = 40 % Imaging - Results Chest X-ray: Report Reviewed (Bibasilar ATX) Problem List - Problems (1) Acute on chronic diastolic (congestive) heart failure Code(s): I50.33 - ACUTE ON CHRONIC DIASTOLIC (CONGESTIVE) HEART FAILURE (2) HTN (hypertension) Code(s): I10 - ESSENTIAL (PRIMARY) HYPERTENSION Qualifiers: Hypertension type: essential hypertension Qualified Code(s): I10 - Essential (primary) hypertension (3) Hypertriglyceridemia Code(s): E78.1 - PURE HYPERGLYCERIDEMIA (4) Leg edema Code(s): R60.0 - LOCALIZED EDEMA Qualifiers: Laterality: bilateral Qualified Code(s): R60.0 - Localized edema (5) Shortness of breath Code(s): R06.02 - SHORTNESS OF BREATH (6) CKD (chronic kidney disease) Code(s): N18.9 - CHRONIC KIDNEY DISEASE, UNSPECIFIED Qualifiers: Chronic kidney disease stage: unspecified stage Qualified Code(s): N18.9 - Chronic kidney disease, unspecified (7) COPD (chronic obstructive pulmonary disease) Code(s): J44.9 - CHRONIC OBSTRUCTIVE PULMONARY DISEASE, UNSPECIFIED Qualifiers : COPD type: chronic bronchitis (8) Diabetes mellitus Code(s): E11.9 - TYPE 2 DIABETES MELLITUS WITHOUT COMPLICATIONS Qualifiers: Diabetes mellitus type: type 2 Diabetes mellitus complication status: without complication Diabetes mellitus lobsterman insulin use: with lobsterman use Qualified Code(s): E11.9 - Type 2 diabetes mellitus without complications (9) Anemia Code(s): D64.9 - ANEMIA, UNSPECIFIED Qualifiers: Anemia type: unspecified anemia type Assessment/Plan 1. Acute on Chronic LV Diastolic Heart Failure 2. COPD with Chronic Hypoxic Respiratory Failure 3. DM 4. Hypercholesterolemia 5. Anemia 6. CKD 7. HTN PLAN: 1. IV diuresis with monitor diuretic response, renal fxn and electrolytes 2. F/u echocardiogram results 3. Continue ASA 81 qd, Lopid 600 bid, Cardizem CD 120 qd, Cozaar 25 qd and Hytrin 5 qhs 4. BD, O2 to keep SpO2 >90%, steroid taper, Daliresp, complete abx course 5. Thank you for consultative opportunity
[2016-10-15] MEDS: ZOLPIDEM TARTRATE 5 MG TABLET PO PRN (22:14)
[2016-10-15] MEDS: TERAZOSIN HCL 5 MG CAPSULE PO SCH (22:47)
[2016-10-16] MEDS: methylPREDNISolone NA SUCC 40 MG/1 ML VIAL IVPB SCH (01:47)
[2016-10-16] MEDS: ALBUTEROL SO4 2.5/IPRATROPIUM 0.5 INH SOL 3 ML VIAL.NEB. NEB PRN ×5 (06:29→21:53)
[2016-10-16] MEDS: sitaGLIPtin PHOSPHATE 25 MG TABLET (FP) PO SCH (06:45)
[2016-10-16] MEDS: GEMFIBROZIL 600 MG TABLET (FP) PO SCH ×2 (06:45→17:12)
[2016-10-16] MEDS: INSULIN SLIDING SCALE (NOVOLOG) 1 VIAL SQ SCH ×4 (06:45→22:23)
[2016-10-16] MEDS: INSULIN (NOVOLOG MIX 70/30) 100 UNITS/ML MDV SQ SCH ×2 (06:45→17:12)
[2016-10-16 08:03] LABS: ALBUMIN 2.9 g/dl (3.4-5.0); CALCIUM 8.8 mg/dL (8.5-10.1)
[2016-10-16 08:05] LABS: BILIRUBIN,TOTAL 0.1 mg/dL (0.2-1.0); CREATININE 1.9 mg/dL (0.7-1.3)
--- NOTE | 2016-10-16 08:14 | PN ---
Progress Note, Physician - Current Medication List Current Medications: Active Medications Acetaminophen (Tylenol -) 650 mg PO Q6H PRN PRN Reason: FEVER OR PAIN Albuterol/Ipratropium (Duoneb -) 1 amp NEB Q6H PRN PRN Reason: SHORTNESS OF BREATH Last Admin: 10/16/16 06:29 Dose: 1 amp Allopurinol (Zyloprim -) 100 mg PO DAILY [facility] Last Admin: 10/15/16 10:45 Dose: 100 mg Aspirin (Asa -) 81 mg PO DAILY [facility] Last Admin: 10/15/16 10:45 Dose: 81 mg Budesonide/Formoterol Fumarate (Symbicort 160/4.5mcg -) 2 puff IH BID [facility] Last Admin: 10/15/16 22:47 Dose: 2 puff Buspirone HCl (Buspar -) 5 mg PO BID [facility] Last Admin: 10/15/16 22:14 Dose: Not Given Ceftriaxone Sodium (Rocephin 2gm Ivpb (Pre-Docked)) 2 gm IVPB DAILY [facility] Last Admin: 10/15/16 10:45 Dose: 2 gm Diltiazem HCl (Cardizem Cd -) 120 mg PO DAILY [facility] Last Admin: 10/15/16 10:45 Dose: 120 mg Docusate Sodium (Colace -) 100 mg PO Q8H PRN PRN Reason: CONSTIPATION Fentanyl (Duragesic 75mcg Patch -) 1 patch TD Q72H [facility] Last Admin: 10/14/16 22:19 Dose: 1 patch Ferrous Sulfate (Feosol -) 325 mg PO DAILY [facility] Last Admin: 10/15/16 10:45 Dose: 325 mg Furosemide (Lasix Injection -) 60 mg IVPUSH BID [facility] Gemfibrozil (Lopid -) 600 mg PO BID@0700,1630 [facility] Last Admin: 10/16/16 06:45 Dose: 600 mg Guaifenesin/Codeine Phosphate (Robitussin Ac -) 5 ml PO TID PRN PRN Reason: COUGH Heparin Sodium (Porcine) (Heparin -) 5,000 unit SQ BID [facility] Last Admin: 10/15/16 22:14 Dose: 5,000 unit Hydromorphone HCl (Dilaudid Injection -) 2 mg IVPB HS PRN PRN Reason: PAIN Insulin Aspart (Novolog Vial Sliding Scale -) 1 vial SQ ACHS JOSE LUIS PRN Reason: Protocol Last Admin: 10/16/16 06:45 Dose: 4 units Insulin Aspart (Novolog Mix 70/30 Vial) 35 units SQ BIDAC [facility] Last Admin: 10/16/16 06:45 Dose: 35 units Lactulose (Cephulac (Oral Use)) 20 gm PO BID [facility] Last Admin: 10/15/16 22:13 Dose: 20 gm Losartan Potassium (Cozaar -) 25 mg PO DAILY [facility] Last Admin: 10/15/16 10:45 Dose: 25 mg Methylprednisolone Sodium Succinate (Solu-Medrol -) 40 mg IVPB Q8H-IV [facility] Last Admin: 10/16/16 01:47 Dose: 40 mg Miscellaneous (Duragesic Patch Waste) 1 each MC PRN PRN PRN Reason: PAIN Last Admin: 10/14/16 22:18 Dose: 1 each Oxycodone HCl (Roxicodone -) 10 mg PO Q6H PRN PRN Reason: PAIN Last Admin: 10/15/16 02:18 Dose: 10 mg Roflumilast (Daliresp -) 500 mcg PO DAILY [facility] Last Admin: 10/15/16 10:45 Dose: 500 mcg Senna (Senna -) 1 tab PO HS [facility] Last Admin: 10/15/16 22:15 Dose: 1 tab Sitagliptin Phosphate (Januvia -) 25 mg PO DAILY@0700 [facility] Last Admin: 10/16/16 06:45 Dose: 25 mg Sodium Chloride ([place] Nasal [place] -) 2 spray NS TID PRN PRN Reason: NASAL CONGESTION Tamsulosin HCl (Flomax -) 0.4 mg PO DAILY@0830 [facility] Last Admin: 10/15/16 08:05 Dose: 0.4 mg Terazosin HCl (Hytrin -) 5 mg PO HS [facility] Last Admin: 10/15/16 22:47 Dose: 5 mg Tiotropium [place] (Spiriva -) 1 puff IH DAILY [facility] Zolpidem Tartrate (Ambien -) 5 mg PO HS PRN PRN Reason: INSOMNIA Last Admin: 10/15/16 22:14 Dose: 5 mg - Objective Vital Signs: Vital Signs Temperature 98.3 F 10/16/16 07:19 Pulse Rate 83 10/16/16 07:19 Respiratory Rate 20 10/16/16 07:19 Blood Pressure 152/55 10/16/16 07:19 O2 Sat by Pulse Oximetry (%) 95 10/15/16 22:00 Labs: INR, PTT INR 1.00 (0.82-1.09) 10/14/16 17:19 Assessment/Plan Problems (1) Leg edema Assessment/Plan: renal increase iv lasix --60 bid monitor lytes Code(s): R60.0 - LOCALIZED EDEMA Qualifiers: Laterality: bilateral Qualified Code(s): R60.0 - Localized edema (2) COPD exacerbation Assessment/Plan: pulm steroids symbicort daliresp spiriva patient doesn't want turdoza oxygen [place] Code(s): J44.1 - CHRONIC OBSTRUCTIVE PULMONARY DISEASE W (ACUTE) EXACERBATION (3) HTN (hypertension) Assessment/Plan: kwame cortez Code(s): I10 - ESSENTIAL (PRIMARY) HYPERTENSION Qualifiers: Hypertension type: essential hypertension Qualified Code(s): I10 - Essential (primary) hypertension (4) Hypertriglyceridemia Assessment/Plan: lopid Code(s): E78.1 - PURE HYPERGLYCERIDEMIA (5) BPH (benign prostatic hyperplasia) Assessment/Plan: hytrin and flomax Code(s): N40.0 - BENIGN PROSTATIC HYPERPLASIA WITHOUT LOWER URINRY TRACT SYMP (6) Chronic back pain greater than 3 months duration Assessment/Plan: fentanyl and oxycodone Code(s): M54.9 - DORSALGIA, UNSPECIFIED G89.29 - OTHER CHRONIC PAIN
--- NOTE | 2016-10-16 09:23 | PN ---
Progress Note (short form) - Note Progress Note: No acute events overnight. Some congested cough (probably baseline). No CP. No fever. Intake & Output 10/13/16 10/14/16 10/15/16 10/16/16 23:59 23:59 23:59 23:59 Intake Total 650 200 Output Total 200 300 Balance 450 -100 Weight 285 lb 238 lb 240 lb 6 oz Last Vital Signs Temp Pulse Resp BP Pulse Ox 98.3 F 83 20 152/55 95 10/16/16 07:19 10/16/16 07:19 10/16/16 07:19 10/16/16 07:19 10/15/16 22:00 Active Medications Acetaminophen (Tylenol -) 650 mg PO Q6H PRN PRN Reason: FEVER OR PAIN Albuterol/Ipratropium (Duoneb -) 1 amp NEB Q6H PRN PRN Reason: SHORTNESS OF BREATH Last Admin: 10/16/16 06:29 Dose: 1 amp Allopurinol (Zyloprim -) 100 mg PO DAILY [facility] Last Admin: 10/15/16 10:45 Dose: 100 mg Aspirin (Asa -) 81 mg PO DAILY [facility] Last Admin: 10/15/16 10:45 Dose: 81 mg Budesonide/Formoterol Fumarate (Symbicort 160/4.5mcg -) 2 puff IH BID [facility] Last Admin: 10/15/16 22:47 Dose: 2 puff Buspirone HCl (Buspar -) 5 mg PO BID [facility] Last Admin: 10/15/16 22:14 Dose: Not Given Ceftriaxone Sodium (Rocephin 2gm Ivpb (Pre-Docked)) 2 gm IVPB DAILY [facility] Last Admin: 10/15/16 10:45 Dose: 2 gm Diltiazem HCl (Cardizem Cd -) 120 mg PO DAILY [facility] Last Admin: 10/15/16 10:45 Dose: 120 mg Docusate Sodium (Colace -) 100 mg PO Q8H PRN PRN Reason: CONSTIPATION Fentanyl (Duragesic 75mcg Patch -) 1 patch TD Q72H [facility] Last Admin: 10/14/16 22:19 Dose: 1 patch Ferrous Sulfate (Feosol -) 325 mg PO DAILY [facility] Last Admin: 10/15/16 10:45 Dose: 325 mg Furosemide (Lasix Injection -) 60 mg IVPUSH BID [facility] Gemfibrozil (Lopid -) 600 mg PO BID@0700,1630 [facility] Last Admin: 10/16/16 06:45 Dose: 600 mg Guaifenesin/Codeine Phosphate (Robitussin Ac -) 5 ml PO TID PRN PRN Reason: COUGH Heparin Sodium (Porcine) (Heparin -) 5,000 unit SQ BID [facility] Last Admin: 10/15/16 22:14 Dose: 5,000 unit Hydromorphone HCl (Dilaudid Injection -) 2 mg IVPB HS PRN PRN Reason: PAIN Insulin Aspart (Novolog Vial Sliding Scale -) 1 vial SQ ACHS JOSE LUIS PRN Reason: Protocol Last Admin: 10/16/16 06:45 Dose: 4 units Insulin Aspart (Novolog Mix 70/30 Vial) 35 units SQ BIDAC [facility] Last Admin: 10/16/16 06:45 Dose: 35 units Lactulose (Cephulac (Oral Use)) 20 gm PO BID [facility] Last Admin: 10/15/16 22:13 Dose: 20 gm Losartan Potassium (Cozaar -) 25 mg PO DAILY [facility] Last Admin: 10/15/16 10:45 Dose: 25 mg Methylprednisolone Sodium Succinate (Solu-Medrol -) 40 mg IVPB Q8H-IV [facility] Last Admin: 10/16/16 01:47 Dose: 40 mg Miscellaneous (Duragesic Patch Waste) 1 each MC PRN PRN PRN Reason: PAIN Last Admin: 10/14/16 22:18 Dose: 1 each Oxycodone HCl (Roxicodone -) 10 mg PO Q6H PRN PRN Reason: PAIN Last Admin: 10/15/16 02:18 Dose: 10 mg Roflumilast (Daliresp -) 500 mcg PO DAILY [facility] Last Admin: 10/15/16 10:45 Dose: 500 mcg Senna (Senna -) 1 tab PO HS [facility] Last Admin: 10/15/16 22:15 Dose: 1 tab Sitagliptin Phosphate (Januvia -) 25 mg PO DAILY@0700 [facility] Last Admin: 10/16/16 06:45 Dose: 25 mg Sodium Chloride ([place] Nasal [place] -) 2 spray NS TID PRN PRN Reason: NASAL CONGESTION Tamsulosin HCl (Flomax -) 0.4 mg PO DAILY@0830 [facility] Last Admin: 10/15/16 08:05 Dose: 0.4 mg Terazosin HCl (Hytrin -) 5 mg PO HS [facility] Last Admin: 10/15/16 22:47 Dose: 5 mg Tiotropium [place] (Spiriva -) 1 puff IH DAILY [facility] Zolpidem Tartrate (Ambien -) 5 mg PO HS PRN PRN Reason: INSOMNIA Last Admin: 10/15/16 22:14 Dose: 5 mg Constitutional: Yes: NAD Eyes: Yes: Conjunctiva Clear, EOM Intact HENT: Yes: Atraumatic, Normocephalic Neck: Yes: Supple, Trachea Midline Cardiovascular: Yes: Regular Rate and Rhythm Respiratory: Yes: Rhonchi, no wheeze ...Clubbing: No Gastrointestinal: Yes: Normal Bowel Sounds, Soft, Abdomen, Obese. No: Tenderness Edema: Yes Neurological: Yes: Alert, Oriented Laboratory Results - last 24 hr 10/15/16 10/15/16 10/15/16 02:17 07:21 12:14 Sodium Potassium Chloride Carbon Dioxide Anion Gap BUN Creatinine Creat Clearance w eGFR POC Glucometer > [phone] 111 Random Glucose Calcium Total Bilirubin AST ALT Alkaline Phosphatase Total Protein Albumin 10/15/16 10/15/16 10/16/16 16:51 22:02 05:50 Sodium Potassium Chloride Carbon Dioxide Anion Gap BUN Creatinine Creat Clearance w eGFR POC Glucometer 195 133 216 Random Glucose Calcium Total Bilirubin AST ALT Alkaline Phosphatase Total Protein Albumin 10/16/16 07:05 Sodium 138 Potassium 4.2 Chloride 100 Carbon Dioxide 28 Anion Gap 10 BUN 54 H D Creatinine 1.9 H Creat Clearance w eGFR 35.02 POC Glucometer Random Glucose 190 H D Calcium 8.8 Total Bilirubin 0.1 L D AST 13 L D ALT 24 Alkaline Phosphatase 43 L Total Protein 6.0 L Albumin 2.9 L Problem List - Problems (1) Acute on chronic diastolic (congestive) heart failure Code(s): I50.33 - ACUTE ON CHRONIC DIASTOLIC (CONGESTIVE) HEART FAILURE (2) COPD (chronic obstructive pulmonary disease) Code(s): J44.9 - CHRONIC OBSTRUCTIVE PULMONARY DISEASE, UNSPECIFIED Qualifiers : COPD type: chronic bronchitis (3) Chronic respiratory failure with hypoxia Code(s): J96.11 - CHRONIC RESPIRATORY FAILURE WITH HYPOXIA (4) Atelectasis Code(s): J98.11 - ATELECTASIS (5) Diabetes mellitus, insulin dependent (IDDM), uncontrolled Code(s): E10.65 - TYPE 1 DIABETES MELLITUS WITH HYPERGLYCEMIA Qualifiers: Diabetes mellitus complication status: without complication Qualified Code(s): E10.9 - Type 1 diabetes mellitus without complications (6) HTN (hypertension) Code(s): I10 - ESSENTIAL (PRIMARY) HYPERTENSION Qualifiers: Hypertension type: essential hypertension Qualified Code(s): I10 - Essential (primary) hypertension Assessment/Plan Acute on Chronic LV Diastolic Heart Failure COPD Atelectasis Recent Pneumonia Chronic Hypoxic Respiratory Failure CKD HTN DM Hyperlipidemia - IV lasix - monitor urine output, creatinine - I/Os, daily weights (weights appear off) - inhaled bronchodilators - O2 to keep SpO2 >90% - Prednisone - D/C ABX - DVT prophylaxis Dr Amaral
[2016-10-16] MEDS ORDERED: FUROSEMIDE 40 MG/4 ML INJECTABLE VIAL IVPUSH SCH ×2 (10:00)
[2016-10-16] MEDS ORDERED: ALBUTEROL SO4 0.083% IH SOL 2.5 MG/3 ML VIAL.NEB. NEB ONE (10:17)
[2016-10-16] MEDS ORDERED: PT OWN MED DRAWER 7, Y5N ONE ×4 (10:22→23:30)
[2016-10-16] MEDS: busPIRone HCL 5 MG TABLET PO SCH ×2 (10:24→22:23)
[2016-10-16] MEDS: LOSARTAN POTASSIUM 25 MG TABLET PO SCH (10:34)
[2016-10-16] MEDS: LACTULOSE 20 GM/30 ML UDC (FOR ORAL USE ONLY) PO SCH ×2 (10:34→22:12)
[2016-10-16] MEDS: HEPARIN NA (PORCINE) 5,000 UNITS/ML 1ML VIAL SQ SCH ×2 (10:34→22:04)
[2016-10-16] MEDS: predniSONE 20 MG TABLET (UD) PO SCH (10:34)
[2016-10-16] MEDS: TAMSULOSIN HCL 0.4 MG CAP.ER.24H (FP) PO SCH (10:34)
[2016-10-16] MEDS: ASPIRIN 81 MG CHEWABLE TABLETS PO SCH (10:34)
[2016-10-16] MEDS: FERROUS SO4 325 MG TABLET (FP) PO SCH (10:34)
[2016-10-16] MEDS: ROFLUMILAST 500 MCG TABLET PO SCH (10:34)
[2016-10-16] MEDS: TIOTROPIUM BROMIDE 18 MCG/INH (DEVICE W/ 5 CAPSULES) IH SCH (10:35)
[2016-10-16] MEDS: BUDESONIDE/FORMETEROL FUMARATE 160/4.5 mcg INHALER IH SCH ×2 (10:36→22:14)
[2016-10-16] MEDS: ALLOPURINOL 100 MG TABLET (FP) PO SCH (10:36)
--- NOTE | 2016-10-16 13:04 | PN ---
Progress Note, Physician Chief Complaint: Events noted Less shortness of breath (+) pedal edema History of Present Illness: Patient was seen and examined. Awake and alert. Chart was reviewed Denies chest pain or palpitations - Current Medication List Current Medications: Active Medications Acetaminophen (Tylenol -) 650 mg PO Q6H PRN PRN Reason: FEVER OR PAIN Albuterol/Ipratropium (Duoneb -) 1 amp NEB Q6H PRN PRN Reason: SHORTNESS OF BREATH Last Admin: 10/16/16 10:40 Dose: 1 amp Allopurinol (Zyloprim -) 100 mg PO DAILY [facility] Last Admin: 10/16/16 10:36 Dose: 100 mg Aspirin (Asa -) 81 mg PO DAILY [facility] Last Admin: 10/16/16 10:34 Dose: 81 mg Budesonide/Formoterol Fumarate (Symbicort 160/4.5mcg -) 2 puff IH BID [facility] Last Admin: 10/16/16 10:36 Dose: 2 puff Buspirone HCl (Buspar -) 5 mg PO BID [facility] Last Admin: 10/16/16 10:24 Dose: Not Given Diltiazem HCl (Cardizem Cd -) 120 mg PO DAILY [facility] Last Admin: 10/16/16 10:34 Dose: 120 mg Docusate Sodium (Colace -) 100 mg PO Q8H PRN PRN Reason: CONSTIPATION Fentanyl (Duragesic 75mcg Patch -) 1 patch TD Q72H [facility] Last Admin: 10/14/16 22:19 Dose: 1 patch Ferrous Sulfate (Feosol -) 325 mg PO DAILY [facility] Last Admin: 10/16/16 10:34 Dose: 325 mg Furosemide (Lasix Injection -) 60 mg IVPUSH BID [facility] Last Admin: 10/16/16 10:35 Dose: 60 mg Gemfibrozil (Lopid -) 600 mg PO BID@0700,1630 [facility] Last Admin: 10/16/16 06:45 Dose: 600 mg Guaifenesin/Codeine Phosphate (Robitussin Ac -) 5 ml PO TID PRN PRN Reason: COUGH Heparin Sodium (Porcine) (Heparin -) 5,000 unit SQ BID [facility] Last Admin: 10/16/16 10:34 Dose: 5,000 unit Hydromorphone HCl (Dilaudid Injection -) 2 mg IVPB HS PRN PRN Reason: PAIN Insulin Aspart (Novolog Vial Sliding Scale -) 1 vial SQ ACHS JOSE LUIS PRN Reason: Protocol Last Admin: 10/16/16 12:21 Dose: Not Given Insulin Aspart (Novolog Mix 70/30 Vial) 35 units SQ BIDAC [facility] Last Admin: 10/16/16 06:45 Dose: 35 units Lactulose (Cephulac (Oral Use)) 20 gm PO BID [facility] Last Admin: 10/16/16 10:34 Dose: 20 gm Losartan Potassium (Cozaar -) 25 mg PO DAILY [facility] Last Admin: 10/16/16 10:34 Dose: 25 mg Miscellaneous (Duragesic Patch Waste) 1 each MC PRN PRN PRN Reason: PAIN Last Admin: 10/14/16 22:18 Dose: 1 each Oxycodone HCl (Roxicodone -) 10 mg PO Q6H PRN PRN Reason: PAIN Last Admin: 10/15/16 02:18 Dose: 10 mg Prednisone (Deltasone -) 40 mg PO DAILY [facility] Last Admin: 10/16/16 10:34 Dose: 40 mg Roflumilast (Daliresp -) 500 mcg PO DAILY [facility] Last Admin: 10/16/16 10:34 Dose: 500 mcg Senna (Senna -) 1 tab PO HS [facility] Last Admin: 10/15/16 22:15 Dose: 1 tab Sitagliptin Phosphate (Januvia -) 25 mg PO DAILY@0700 [facility] Last Admin: 10/16/16 06:45 Dose: 25 mg Sodium Chloride ([place] Nasal [place] -) 2 spray NS TID PRN PRN Reason: NASAL CONGESTION Tamsulosin HCl (Flomax -) 0.4 mg PO DAILY@0830 [facility] Last Admin: 10/16/16 10:34 Dose: 0.4 mg Terazosin HCl (Hytrin -) 5 mg PO HS [facility] Last Admin: 10/15/16 22:47 Dose: 5 mg Tiotropium [place] (Spiriva -) 1 puff IH DAILY [facility] Last Admin: 10/16/16 10:35 Dose: 1 puff Zolpidem Tartrate (Ambien -) 5 mg PO HS PRN PRN Reason: INSOMNIA Last Admin: 10/15/16 22:14 Dose: 5 mg - Objective Vital Signs: Vital Signs Temperature 98.6 F 10/16/16 10:18 Pulse Rate 54 L 10/16/16 10:45 Respiratory Rate 22 10/16/16 10:18 Blood Pressure 105/44 10/16/16 10:18 O2 Sat by Pulse Oximetry (%) 96 10/16/16 10:45 Neck: Yes: Supple Cardiovascular: Yes: Regular Rate and Rhythm, S1, S2 Respiratory: Yes: Diminished Gastrointestinal: Yes: Normal Bowel Sounds, Soft, Abdomen, Obese. No: Tenderness Edema: Yes Edema: LLE: 2+, RLE: 2+ Additional Findings/Remarks: - Review of Systems Constitutional: no symptoms reported Respiratory: (+) Cough or Sputum Production Cardiovascular: as noted above (+) SOB Gastrointestinal: denies Nausea, Vomiting, Diarrhea, Constipation or Abdominal Pain Genitourinary: no symptoms reported Musculoskeletal: no symptoms reported Labs: CBC, BMP 10/16/16 07:05 INR, PTT INR 1.00 (0.82-1.09) 10/14/16 17:19 Problem List - Problems (1) Acute on chronic diastolic (congestive) heart failure Code(s): I50.33 - ACUTE ON CHRONIC DIASTOLIC (CONGESTIVE) HEART FAILURE (2) COPD exacerbation Code(s): J44.1 - CHRONIC OBSTRUCTIVE PULMONARY DISEASE W (ACUTE) EXACERBATION (3) Chronic respiratory failure with hypoxia Code(s): J96.11 - CHRONIC RESPIRATORY FAILURE WITH HYPOXIA (4) HTN (hypertension) Code(s): I10 - ESSENTIAL (PRIMARY) HYPERTENSION Qualifiers: Hypertension type: essential hypertension Qualified Code(s): I10 - Essential (primary) hypertension (5) Hyperlipidemia LDL goal < 100 Code(s): E78.5 - HYPERLIPIDEMIA, UNSPECIFIED (6) Hypertriglyceridemia Code(s): E78.1 - PURE HYPERGLYCERIDEMIA (7) Shortness of breath Code(s): R06.02 - SHORTNESS OF BREATH (8) Anemia Code(s): D64.9 - ANEMIA, UNSPECIFIED Qualifiers: Anemia type: unspecified type Qualified Code(s): D64.9 - Anemia, unspecified (9) CKD (chronic kidney disease) Code(s): N18.9 - CHRONIC KIDNEY DISEASE, UNSPECIFIED Qualifiers: Chronic kidney disease stage: unspecified stage Qualified Code(s): N18.9 - Chronic kidney disease, unspecified (10) Diabetes mellitus Code(s): E11.9 - TYPE 2 DIABETES MELLITUS WITHOUT COMPLICATIONS Qualifiers: Diabetes mellitus type: type 2 Diabetes mellitus complication status: without complication Diabetes mellitus mcc insulin use: with mcc use Qualified Code(s): E11.9 - Type 2 diabetes mellitus without complications Assessment/Plan 1. Acute on Chronic LV Diastolic Heart Failure 2. COPD with Chronic Hypoxic Respiratory Failure 3. Type 2 diabetes mellitus 4. Hypercholesterolemia 5. Anemia 6. CKD 7. HTN PLAN: 1. IV diuresis with monitoring renal function and electrolytes 2. Transthoracic echocardiography 3. Continue ASA 81 mg QD, Lopid 600 mg BID, Cardizem CD 120 mg QD, Cozaar 25 mg QD and Hytrin 5 mg QHS 4. Bronchodilator, O2 to keep SpO2 >90%, steroid taper, Daliresp and antibiotic coverage Further plans are to follow Nicholas Silver MD
[2016-10-16] MEDS: oxyCODONE HCL 5 MG TABLET PO PRN (13:29)
--- NOTE | 2016-10-16 15:27 | PN ---
Progress Note, Physician History of Present Illness: Pt seen and examined at bedside. He is awake and alert. He still complains of shortness of breath. - Current Medication List Current Medications: Active Medications Acetaminophen (Tylenol -) 650 mg PO Q6H PRN PRN Reason: FEVER OR PAIN Albuterol/Ipratropium (Duoneb -) 1 amp NEB Q6H PRN PRN Reason: SHORTNESS OF BREATH Last Admin: 10/16/16 14:45 Dose: 1 amp Allopurinol (Zyloprim -) 100 mg PO DAILY [facility] Last Admin: 10/16/16 10:36 Dose: 100 mg Aspirin (Asa -) 81 mg PO DAILY [facility] Last Admin: 10/16/16 10:34 Dose: 81 mg Budesonide/Formoterol Fumarate (Symbicort 160/4.5mcg -) 2 puff IH BID [facility] Last Admin: 10/16/16 10:36 Dose: 2 puff Buspirone HCl (Buspar -) 5 mg PO BID [facility] Last Admin: 10/16/16 10:24 Dose: Not Given Diltiazem HCl (Cardizem Cd -) 120 mg PO DAILY [facility] Last Admin: 10/16/16 10:34 Dose: 120 mg Docusate Sodium (Colace -) 100 mg PO Q8H PRN PRN Reason: CONSTIPATION Fentanyl (Duragesic 75mcg Patch -) 1 patch TD Q72H [facility] Last Admin: 10/14/16 22:19 Dose: 1 patch Ferrous Sulfate (Feosol -) 325 mg PO DAILY [facility] Last Admin: 10/16/16 10:34 Dose: 325 mg Furosemide (Lasix Injection -) 60 mg IVPUSH BIDLASIX [facility] Gemfibrozil (Lopid -) 600 mg PO BID@0700,1630 [facility] Last Admin: 10/16/16 06:45 Dose: 600 mg Guaifenesin/Codeine Phosphate (Robitussin Ac -) 5 ml PO TID PRN PRN Reason: COUGH Heparin Sodium (Porcine) (Heparin -) 5,000 unit SQ BID [facility] Last Admin: 10/16/16 10:34 Dose: 5,000 unit Hydromorphone HCl (Dilaudid Injection -) 2 mg IVPB HS PRN PRN Reason: PAIN Insulin Aspart (Novolog Vial Sliding Scale -) 1 vial SQ ACHS [facility] PRN Reason: Protocol Last Admin: 10/16/16 12:21 Dose: Not Given Insulin Aspart (Novolog Mix 70/30 Vial) 35 units SQ BIDAC [facility] Last Admin: 10/16/16 06:45 Dose: 35 units Lactulose (Cephulac (Oral Use)) 20 gm PO BID [facility] Last Admin: 10/16/16 10:34 Dose: 20 gm Losartan Potassium (Cozaar -) 25 mg PO DAILY [facility] Last Admin: 10/16/16 10:34 Dose: 25 mg Miscellaneous (Duragesic Patch Waste) 1 each MC PRN PRN PRN Reason: PAIN Last Admin: 10/14/16 22:18 Dose: 1 each Oxycodone HCl (Roxicodone -) 10 mg PO Q6H PRN PRN Reason: PAIN Last Admin: 10/16/16 13:29 Dose: 10 mg Prednisone (Deltasone -) 40 mg PO DAILY [facility] Last Admin: 10/16/16 10:34 Dose: 40 mg Roflumilast (Daliresp -) 500 mcg PO DAILY [facility] Last Admin: 10/16/16 10:34 Dose: 500 mcg Senna (Senna -) 1 tab PO HS [facility] Last Admin: 10/15/16 22:15 Dose: 1 tab Sitagliptin Phosphate (Januvia -) 25 mg PO DAILY@0700 [facility] Last Admin: 10/16/16 06:45 Dose: 25 mg Sodium Chloride ([place] Nasal [place] -) 2 spray NS TID PRN PRN Reason: NASAL CONGESTION Tamsulosin HCl (Flomax -) 0.4 mg PO DAILY@0830 [facility] Last Admin: 10/16/16 10:34 Dose: 0.4 mg Terazosin HCl (Hytrin -) 5 mg PO HS [facility] Last Admin: 10/15/16 22:47 Dose: 5 mg Tiotropium [place] (Spiriva -) 1 puff IH DAILY [facility] Last Admin: 10/16/16 10:35 Dose: 1 puff Zolpidem Tartrate (Ambien -) 5 mg PO HS PRN PRN Reason: INSOMNIA Last Admin: 10/15/16 22:14 Dose: 5 mg - Objective Vital Signs: Vital Signs Temperature 97.0 F L 10/16/16 14:45 Pulse Rate 50 L 10/16/16 14:45 Respiratory Rate 20 10/16/16 14:45 Blood Pressure 114/42 10/16/16 14:45 O2 Sat by Pulse Oximetry (%) 96 10/16/16 10:45 Constitutional: Yes: Calm HENT: Yes: Atraumatic Neck: Yes: Supple Cardiovascular: Yes: S1, S2 Respiratory: Yes: On Nasal O2, Rhonchi Gastrointestinal: Yes: Soft, Abdomen, Obese Genitourinary: Yes: WNL Musculoskeletal: Yes: WNL Edema: Yes Edema: LLE: 2+, RLE: 2+ Neurological: Yes: Oriented Psychiatric: Yes: Oriented Labs: CBC, BMP 10/16/16 07:05 INR, PTT INR 1.00 (0.82-1.09) 10/14/16 17:19 Problem List - Problems (1) COPD exacerbation Code(s): J44.1 - CHRONIC OBSTRUCTIVE PULMONARY DISEASE W (ACUTE) EXACERBATION (2) Chronic respiratory failure with hypoxia Code(s): J96.11 - CHRONIC RESPIRATORY FAILURE WITH HYPOXIA (3) Diabetes mellitus, insulin dependent (IDDM), uncontrolled Code(s): E10.65 - TYPE 1 DIABETES MELLITUS WITH HYPERGLYCEMIA Qualifiers: Diabetes mellitus complication status: without complication Qualified Code(s): E10.9 - Type 1 diabetes mellitus without complications (4) HTN (hypertension) Code(s): I10 - ESSENTIAL (PRIMARY) HYPERTENSION Qualifiers: Hypertension type: essential hypertension Qualified Code(s): I10 - Essential (primary) hypertension (5) Shortness of breath Code(s): R06.02 - SHORTNESS OF BREATH (6) Anemia Code(s): D64.9 - ANEMIA, UNSPECIFIED Qualifiers: Anemia type: unspecified type Qualified Code(s): D64.9 - Anemia, unspecified (7) CHF (congestive heart failure) Code(s): I50.9 - HEART FAILURE, UNSPECIFIED Qualifiers: Congestive heart failure type: diastolic (8) CKD (chronic kidney disease) Code(s): N18.9 - CHRONIC KIDNEY DISEASE, UNSPECIFIED Qualifiers: Chronic kidney disease stage: unspecified stage Qualified Code(s): N18.9 - Chronic kidney disease, unspecified (9) COPD (chronic obstructive pulmonary disease) Code(s): J44.9 - CHRONIC OBSTRUCTIVE PULMONARY DISEASE, UNSPECIFIED Qualifiers : COPD type: chronic bronchitis (10) GERD (gastroesophageal reflux disease) Code(s): K21.9 - GASTRO-ESOPHAGEAL REFLUX DISEASE WITHOUT ESOPHAGITIS Assessment/Plan Current Medications Generic Name Dose Route Start Last Admin Trade Name Freq PRN Reason Stop Dose Admin Acetaminophen 650 mg 10/14/16 21:18 Tylenol - PO Q6H PRN FEVER OR PAIN Albuterol/Ipratropium 1 amp 10/14/16 21:18 10/16/16 14:45 Duoneb - NEB 1 amp Q6H PRN Administration SHORTNESS OF BREATH Allopurinol 100 mg 10/15/16 10:00 10/16/16 10:36 Zyloprim - PO 100 mg DAILY [facility] Administration Aspirin 81 mg 10/15/16 10:00 10/16/16 10:34 Asa - PO 81 mg DAILY [facility] Administration Budesonide/Formoterol Fumarate 2 puff 10/14/16 22:00 10/16/16 10:36 Symbicort 160/4.5mcg - IH 2 puff BID [facility] Administration Buspirone HCl 5 mg 10/14/16 22:00 10/16/16 10:24 Buspar - PO Not Given BID [facility] Diltiazem HCl 120 mg 10/15/16 10:00 10/16/16 10:34 Cardizem Cd - PO 120 mg DAILY [facility] Administration Docusate Sodium 100 mg 10/14/16 21:18 Colace - PO Q8H PRN CONSTIPATION Fentanyl 1 patch 10/14/16 21:30 10/14/16 22:19 Duragesic 75mcg Patch - TD 1 patch Q72H [facility] Administration Ferrous Sulfate 325 mg 10/15/16 10:00 10/16/16 10:34 Feosol - PO 325 mg DAILY [facility] Administration Furosemide 60 mg 10/17/16 06:00 Lasix Injection - IVPUSH BIDLASIX [facility] Gemfibrozil 600 mg 10/15/16 07:00 10/16/16 06:45 Lopid - PO 600 mg BID@0700,1630 [facility] Administration Guaifenesin/Codeine Phosphate 5 ml 10/14/16 21:18 Robitussin Ac - PO TID PRN COUGH Heparin Sodium (Porcine) 5,000 unit 10/14/16 22:00 10/16/16 10:34 Heparin - SQ 5,000 unit BID [facility] Administration Hydromorphone HCl 2 mg 10/16/16 08:12 Dilaudid Injection - IVPB HS PRN PAIN Insulin Aspart 1 vial 10/14/16 22:00 10/16/16 12:21 Novolog Vial Sliding Scale - SQ Not Given ACHS [facility] Protocol Insulin Aspart 35 units 10/15/16 07:00 10/16/16 06:45 Novolog Mix 70/30 Vial SQ 35 units BIDAC [facility] Administration Lactulose 20 gm 10/14/16 22:00 10/16/16 10:34 Cephulac (Oral Use) PO 20 gm BID [facility] Administration Losartan Potassium 25 mg 10/15/16 10:00 10/16/16 10:34 Cozaar - PO 25 mg DAILY [facility] Administration Miscellaneous 1 each 10/14/16 21:18 10/14/16 22:18 Duragesic Patch Waste MC 1 each PRN PRN Administration PAIN Oxycodone HCl 10 mg 10/14/16 21:18 10/16/16 13:29 Roxicodone - PO 10 mg Q6H PRN Administration PAIN Prednisone 40 mg 10/16/16 10:00 10/16/16 10:34 Deltasone - PO 40 mg DAILY [facility] Administration Roflumilast 500 mcg 10/15/16 10:00 10/16/16 10:34 Daliresp - PO 500 mcg DAILY [facility] Administration Senna 1 tab 10/14/16 22:00 10/15/16 22:15 Senna - PO 1 tab HS [facility] Administration Sitagliptin Phosphate 25 mg 10/15/16 07:00 10/16/16 06:45 Januvia - PO 25 mg DAILY@0700 [facility] Administration Sodium Chloride 2 spray 10/14/16 21:18 [place] Nasal [place] - NS TID PRN NASAL CONGESTION Tamsulosin HCl 0.4 mg 10/15/16 08:30 10/16/16 10:34 Flomax - PO 0.4 mg DAILY@0830 [facility] Administration Terazosin HCl 5 mg 10/14/16 22:00 10/15/16 22:47 Hytrin - PO 5 mg HS [facility] Administration Tiotropium [place] 1 puff 10/16/16 10:00 10/16/16 10:35 Spiriva - IH 1 puff DAILY [facility] Administration Zolpidem Tartrate 5 mg 10/14/16 21:18 10/15/16 22:14 Ambien - PO 5 mg HS PRN Administration INSOMNIA Impression 1. CKD 2. DM 3. HTN 4. CHF 5. COPD 6. fluid overload 7. BPH 8. insomnia 9. narcotic dependence Plan - cont with lasix - follow up echo - cardio input appreciated - repeat labs in am - pulm input appreciated - elevate legs when possible - will follow Dr Nathan
--- NOTE | 2016-10-16 16:17 | PN ---
Progress Note (short form) - Note Progress Note: ID Consult dictated Exacerbation COPD Decompensated CHF Recent pneumonia Continue treatment for COPD/CHF Observe off antibiotics
[2016-10-16] MEDS ORDERED: ALBUTEROL SO4 2.5/IPRATROPIUM 0.5 INH SOL 3 ML VIAL.NEB. NEB ONE (16:33)
[2016-10-16] MEDS ORDERED: INSULIN (NOVOLOG) ASPART 100 UNITS/ML 10ML VIAL ONE (16:45)
--- NOTE | 2016-10-16 21:36 | CONS ---
DATE OF CONSULTATION: DATE OF DICTATION: 10/16/2016 The patient is a 71-year-old male, history of COPD and congestive heart failure, recent hospitalization for pneumonia, now evaluated for possible recurrent pneumonia. He was admitted to the hospital on October 14, 2016, with persistent cough and dyspnea. Chest x-ray showed atelectasis at the bases, possible infiltrate. The patient reports dry cough and had some pleuritic type chest pain with cough. He is short of breath on exertion. He denied any associated fever or chills. The patient was hospitalized from September 28 through October 07 with COPD exacerbation and pneumonia. He was treated with a course of IV Zithromax and ceftriaxone. Past medical history positive for COPD, congestive heart failure, chronic kidney disease, hypertension, BPH, history of recurrent otitis, and a history of epididymitis, history of bladder cancer. He has had ESBL in previous urine cultures. No known allergies. Medications include aspirin, Ambien, BuSpar, Cardizem, lactulose, Colace, Cozaar, prednisone 40 mg daily, albuterol, fentanyl, Flomax, Januvia, Lasix, Lopid, NovoLog, allopurinol. SOCIAL HISTORY: Former smoker. He has had recurrent hospitalizations for exacerbation of COPD. LABORATORY DATA: White count 12.1, hematocrit 27.3, platelet count 144. BUN 54, creatinine 1.9. Urinalysis negative. Urine culture negative. Influenza swab negative. Chest x-ray shows atelectatic changes in the right lung base. PHYSICAL EXAMINATION: General: He is dyspneic at rest. Vital Signs: Temperature 97. Blood pressure 114/64. Pulse 50, regular. Respiration 20 per minute. Eyes: Sclerae anicteric. Heart Sounds: S1, S2. Lungs: Bilateral rhonchi, mild wheeze. No rales. Abdomen: Soft. No tenderness elicited. No mass, rebound or rigidity. Extremities: Positive for edema 2+. IMPRESSION: 1. Exacerbation of chronic obstructive pulmonary disease. 2. Decompensated congestive heart failure. 3. Recent pneumonia. 4. Azotemia. Continue treatment for chronic obstructive pulmonary disease exacerbation and decompensated congestive heart failure. Observe off antibiotic therapy as patient recently has completed a course of treatment and low clinical suspicion for recurrent pneumonia. Contact precautions for a previous positive urine culture ESBL. Thank you for the kind referral. SHASHANK BUSTILLO M.D. [facility]/[id number]
[2016-10-16] MEDS: SENNOSIDES 8.6MG TABLET (FP) PO SCH (22:12)
[2016-10-16] MEDS: TERAZOSIN HCL 5 MG CAPSULE PO SCH (22:14)
[2016-10-16] MEDS: ZOLPIDEM TARTRATE 5 MG TABLET PO PRN (22:20)
[2016-10-16] MEDS: HYDROmorphone HCL CARPU-JECT 1 MG/1 ML DISP.SYRIN IVPB PRN (22:43)
[2016-10-17] MEDS ORDERED: FUROSEMIDE 40 MG/4 ML INJECTABLE VIAL IVPUSH SCH (06:00)
[2016-10-17] MEDS: sitaGLIPtin PHOSPHATE 25 MG TABLET (FP) PO SCH (06:44)
[2016-10-17] MEDS: INSULIN SLIDING SCALE (NOVOLOG) 1 VIAL SQ SCH ×4 (06:44→22:26)
[2016-10-17] MEDS: INSULIN (NOVOLOG MIX 70/30) 100 UNITS/ML MDV SQ SCH ×2 (06:45→17:41)
[2016-10-17] MEDS: GEMFIBROZIL 600 MG TABLET (FP) PO SCH ×2 (06:45→17:41)
[2016-10-17] MEDS: ALBUTEROL SO4 2.5/IPRATROPIUM 0.5 INH SOL 3 ML VIAL.NEB. NEB PRN ×2 (06:55→18:44)
[2016-10-17 08:03] LABS: BASOPHIL 0.2 % (0-2.0); MCH 30.2 pg (25.7-33.7); MEAN CELL VOLUME 91.6 fl (80-96); MEAN PLT VOLUME 9.6 fl (7.5-11.1); NEUTROPHILS 86.8 % (42.8-82.8); PLATELET COUNT 153 K/MM3 (134-434); RDW 15.6 % (11.9-15.9)
--- NOTE | 2016-10-17 08:20 | PN ---
Progress Note, Physician History of Present Illness: FEELS BETTER - Current Medication List Current Medications: Active Medications Acetaminophen (Tylenol -) 650 mg PO Q6H PRN PRN Reason: FEVER OR PAIN Albuterol/Ipratropium (Duoneb -) 1 amp NEB Q6H PRN PRN Reason: SHORTNESS OF BREATH Last Admin: 10/17/16 06:55 Dose: 1 amp Allopurinol (Zyloprim -) 100 mg PO DAILY [facility] Last Admin: 10/16/16 10:36 Dose: 100 mg Aspirin (Asa -) 81 mg PO DAILY [facility] Last Admin: 10/16/16 10:34 Dose: 81 mg Budesonide/Formoterol Fumarate (Symbicort 160/4.5mcg -) 2 puff IH BID [facility] Last Admin: 10/16/16 22:14 Dose: 2 puff Buspirone HCl (Buspar -) 5 mg PO BID [facility] Last Admin: 10/16/16 22:23 Dose: Not Given Diltiazem HCl (Cardizem Cd -) 120 mg PO DAILY [facility] Last Admin: 10/16/16 10:34 Dose: 120 mg Docusate Sodium (Colace -) 100 mg PO Q8H PRN PRN Reason: CONSTIPATION Fentanyl (Duragesic 75mcg Patch -) 1 patch TD Q72H [facility] Last Admin: 10/14/16 22:19 Dose: 1 patch Ferrous Sulfate (Feosol -) 325 mg PO DAILY [facility] Last Admin: 10/16/16 10:34 Dose: 325 mg Furosemide (Lasix Injection -) 60 mg IVPUSH BIDLASIX [facility] Last Admin: 10/17/16 06:10 Dose: 60 mg Gemfibrozil (Lopid -) 600 mg PO BID@0700,1630 [facility] Last Admin: 10/17/16 06:45 Dose: 600 mg Guaifenesin/Codeine Phosphate (Robitussin Ac -) 5 ml PO TID PRN PRN Reason: COUGH Heparin Sodium (Porcine) (Heparin -) 5,000 unit SQ BID [facility] Last Admin: 10/16/16 22:04 Dose: 5,000 unit Hydromorphone HCl (Dilaudid Injection -) 2 mg IVPB HS PRN PRN Reason: PAIN Last Admin: 10/16/16 22:43 Dose: 2 mg Insulin Aspart (Novolog Vial Sliding Scale -) 1 vial SQ ACHS [facility] PRN Reason: Protocol Last Admin: 10/17/16 06:44 Dose: Not Given Insulin Aspart (Novolog Mix 70/30 Vial) 35 units SQ BIDAC [facility] Last Admin: 10/17/16 06:45 Dose: 35 units Lactulose (Cephulac (Oral Use)) 20 gm PO BID [facility] Last Admin: 10/16/16 22:12 Dose: 20 gm Losartan Potassium (Cozaar -) 25 mg PO DAILY [facility] Last Admin: 10/16/16 10:34 Dose: 25 mg Miscellaneous (Duragesic Patch Waste) 1 each MC PRN PRN PRN Reason: PAIN Last Admin: 10/14/16 22:18 Dose: 1 each Oxycodone HCl (Roxicodone -) 10 mg PO Q6H PRN PRN Reason: PAIN Last Admin: 10/16/16 13:29 Dose: 10 mg Prednisone (Deltasone -) 40 mg PO DAILY [facility] Last Admin: 10/16/16 10:34 Dose: 40 mg Roflumilast (Daliresp -) 500 mcg PO DAILY [facility] Last Admin: 10/16/16 10:34 Dose: 500 mcg Senna (Senna -) 1 tab PO HS [facility] Last Admin: 10/16/16 22:12 Dose: 1 tab Sitagliptin Phosphate (Januvia -) 25 mg PO DAILY@0700 [facility] Last Admin: 10/17/16 06:44 Dose: 25 mg Sodium Chloride ([place] Nasal [place] -) 2 spray NS TID PRN PRN Reason: NASAL CONGESTION Tamsulosin HCl (Flomax -) 0.4 mg PO DAILY@0830 [facility] Last Admin: 10/16/16 10:34 Dose: 0.4 mg Terazosin HCl (Hytrin -) 5 mg PO HS [facility] Last Admin: 10/16/16 22:14 Dose: 5 mg Tiotropium [place] (Spiriva -) 1 puff IH DAILY [facility] Last Admin: 10/16/16 10:35 Dose: 1 puff Zolpidem Tartrate (Ambien -) 5 mg PO HS PRN PRN Reason: INSOMNIA Last Admin: 10/16/16 22:20 Dose: 5 mg - Objective Vital Signs: Vital Signs Temperature 98.2 F 10/17/16 06:49 Pulse Rate 90 10/17/16 06:49 Respiratory Rate 20 10/17/16 06:49 Blood Pressure 134/72 10/17/16 06:49 O2 Sat by Pulse Oximetry (%) 96 10/16/16 22:00 Neck: Yes: Supple Cardiovascular: Yes: Regular Rate and Rhythm Respiratory: Yes: On Nasal O2, Rales, Rhonchi Gastrointestinal: Yes: Normal Bowel Sounds, Soft Labs: CBC, BMP 10/17/16 07:45 INR, PTT INR 1.00 (0.82-1.09) 10/14/16 17:19 Assessment/Plan Problems (1) Leg edema Assessment/Plan: renal increase iv lasix --60 bid monitor lytes Code(s): R60.0 - LOCALIZED EDEMA Qualifiers: Laterality: bilateral Qualified Code(s): R60.0 - Localized edema (2) COPD exacerbation Assessment/Plan: pulm steroids symbicort daliresp spiriva patient doesn't want turdoza oxygen [place] Code(s): J44.1 - CHRONIC OBSTRUCTIVE PULMONARY DISEASE W (ACUTE) EXACERBATION (3) HTN (hypertension) Assessment/Plan: kwame cortez Code(s): I10 - ESSENTIAL (PRIMARY) HYPERTENSION Qualifiers: Hypertension type: essential hypertension Qualified Code(s): I10 - Essential (primary) hypertension (4) Hypertriglyceridemia Assessment/Plan: lopid Code(s): E78.1 - PURE HYPERGLYCERIDEMIA (5) BPH (benign prostatic hyperplasia) Assessment/Plan: hytrin and flomax Code(s): N40.0 - BENIGN PROSTATIC HYPERPLASIA WITHOUT LOWER URINRY TRACT SYMP (6) Chronic back pain greater than 3 months duration Assessment/Plan: fentanyl and oxycodone Code(s): M54.9 - DORSALGIA, UNSPECIFIED G89.29 - OTHER CHRONIC PAIN
[2016-10-17 08:35] LABS: BILIRUBIN,TOTAL 0.3 mg/dL (0.2-1.0); CALCIUM 8.7 mg/dL (8.5-10.1); CREATININE 1.9 mg/dL (0.7-1.3); TOT PROT 6.3 g/dl (6.4-8.2)
[2016-10-17] MEDS ORDERED: PT OWN MED DRAWER 7, Y5N ONE ×3 (10:37→23:56)
[2016-10-17] MEDS: HEPARIN NA (PORCINE) 5,000 UNITS/ML 1ML VIAL SQ SCH ×2 (10:58→22:08)
[2016-10-17] MEDS: ASPIRIN 81 MG CHEWABLE TABLETS PO SCH (11:02)
[2016-10-17] MEDS: LACTULOSE 20 GM/30 ML UDC (FOR ORAL USE ONLY) PO SCH ×2 (11:02→22:18)
[2016-10-17] MEDS: ROFLUMILAST 500 MCG TABLET PO SCH (11:03)
[2016-10-17] MEDS: ALLOPURINOL 100 MG TABLET (FP) PO SCH (11:03)
[2016-10-17] MEDS: FERROUS SO4 325 MG TABLET (FP) PO SCH (11:03)
[2016-10-17] MEDS: busPIRone HCL 5 MG TABLET PO SCH ×2 (11:03→22:19)
[2016-10-17] MEDS: predniSONE 20 MG TABLET (UD) PO SCH (11:03)
[2016-10-17] MEDS: LOSARTAN POTASSIUM 25 MG TABLET PO SCH (11:03)
[2016-10-17] MEDS: TAMSULOSIN HCL 0.4 MG CAP.ER.24H (FP) PO SCH (11:04)
[2016-10-17] MEDS: TIOTROPIUM BROMIDE 18 MCG/INH (DEVICE W/ 5 CAPSULES) IH SCH (11:04)
[2016-10-17] MEDS: BUDESONIDE/FORMETEROL FUMARATE 160/4.5 mcg INHALER IH SCH ×2 (11:04→22:20)
--- NOTE | 2016-10-17 11:14 | PN ---
Progress Note, Physician History of Present Illness: Dyspnea and LE edema improved. - Current Medication List Current Medications: Active Medications Acetaminophen (Tylenol -) 650 mg PO Q6H PRN PRN Reason: FEVER OR PAIN Albuterol/Ipratropium (Duoneb -) 1 amp NEB Q6H PRN PRN Reason: SHORTNESS OF BREATH Last Admin: 10/17/16 06:55 Dose: 1 amp Allopurinol (Zyloprim -) 100 mg PO DAILY [facility] Last Admin: 10/17/16 11:03 Dose: 100 mg Aspirin (Asa -) 81 mg PO DAILY [facility] Last Admin: 10/17/16 11:02 Dose: 81 mg Budesonide/Formoterol Fumarate (Symbicort 160/4.5mcg -) 2 puff IH BID [facility] Last Admin: 10/17/16 11:04 Dose: 2 puff Buspirone HCl (Buspar -) 5 mg PO BID [facility] Last Admin: 10/17/16 11:03 Dose: 5 mg Diltiazem HCl (Cardizem Cd -) 120 mg PO DAILY [facility] Last Admin: 10/17/16 11:02 Dose: 120 mg Docusate Sodium (Colace -) 100 mg PO Q8H PRN PRN Reason: CONSTIPATION Fentanyl (Duragesic 75mcg Patch -) 1 patch TD Q72H [facility] Last Admin: 10/14/16 22:19 Dose: 1 patch Ferrous Sulfate (Feosol -) 325 mg PO DAILY [facility] Last Admin: 10/17/16 11:03 Dose: 325 mg Furosemide (Lasix Injection -) 60 mg IVPUSH BIDLASIX [facility] Last Admin: 10/17/16 06:10 Dose: 60 mg Gemfibrozil (Lopid -) 600 mg PO BID@0700,1630 [facility] Last Admin: 10/17/16 06:45 Dose: 600 mg Guaifenesin/Codeine Phosphate (Robitussin Ac -) 5 ml PO TID PRN PRN Reason: COUGH Heparin Sodium (Porcine) (Heparin -) 5,000 unit SQ BID [facility] Last Admin: 10/17/16 10:58 Dose: 5,000 unit Hydromorphone HCl (Dilaudid Injection -) 2 mg IVPB HS PRN PRN Reason: PAIN Last Admin: 10/16/16 22:43 Dose: 2 mg Insulin Aspart (Novolog Vial Sliding Scale -) 1 vial SQ ACHS [facility] PRN Reason: Protocol Last Admin: 10/17/16 06:44 Dose: Not Given Insulin Aspart (Novolog Mix 70/30 Vial) 35 units SQ BIDAC [facility] Last Admin: 10/17/16 06:45 Dose: 35 units Lactulose (Cephulac (Oral Use)) 20 gm PO BID [facility] Last Admin: 10/17/16 11:02 Dose: 20 gm Losartan Potassium (Cozaar -) 25 mg PO DAILY [facility] Last Admin: 10/17/16 11:03 Dose: 25 mg Miscellaneous (Duragesic Patch Waste) 1 each [facility] PRN PRN PRN Reason: PAIN Last Admin: 10/14/16 22:18 Dose: 1 each Oxycodone HCl (Roxicodone -) 10 mg PO Q6H PRN PRN Reason: PAIN Last Admin: 10/16/16 13:29 Dose: 10 mg Prednisone (Deltasone -) 40 mg PO DAILY [facility] Last Admin: 10/17/16 11:03 Dose: 40 mg Roflumilast (Daliresp -) 500 mcg PO DAILY [facility] Last Admin: 10/17/16 11:03 Dose: 500 mcg Senna (Senna -) 1 tab PO HS [facility] Last Admin: 10/16/16 22:12 Dose: 1 tab Sitagliptin Phosphate (Januvia -) 25 mg PO DAILY@0700 [facility] Last Admin: 10/17/16 06:44 Dose: 25 mg Sodium Chloride ([place] Nasal [place] -) 2 spray NS TID PRN PRN Reason: NASAL CONGESTION Tamsulosin HCl (Flomax -) 0.4 mg PO DAILY@0830 [facility] Last Admin: 10/17/16 11:04 Dose: 0.4 mg Terazosin HCl (Hytrin -) 5 mg PO HS [facility] Last Admin: 10/16/16 22:14 Dose: 5 mg Tiotropium [place] (Spiriva -) 1 puff IH DAILY [facility] Last Admin: 10/17/16 11:04 Dose: 1 puff Zolpidem Tartrate (Ambien -) 5 mg PO HS PRN PRN Reason: INSOMNIA Last Admin: 10/16/16 22:20 Dose: 5 mg - Objective Vital Signs: Vital Signs Temperature 98.2 F 10/17/16 06:49 Pulse Rate 90 10/17/16 06:49 Respiratory Rate 20 10/17/16 06:49 Blood Pressure 134/72 10/17/16 06:49 O2 Sat by Pulse Oximetry (%) 96 10/16/16 22:00 Constitutional: Yes: No Distress, Calm Neck: Yes: Supple Cardiovascular: Yes: Regular Rate and Rhythm Respiratory: Yes: Regular, Diminished Gastrointestinal: Yes: Normal Bowel Sounds, Soft Edema: Yes Edema: LLE: 1+, RLE: 1+ Labs: CBC, BMP 10/17/16 07:45 10/17/16 07:45 INR, PTT INR 1.00 (0.82-1.09) 10/14/16 17:19 Problem List - Problems (1) Acute on chronic diastolic (congestive) heart failure Code(s): I50.33 - ACUTE ON CHRONIC DIASTOLIC (CONGESTIVE) HEART FAILURE (2) HTN (hypertension) Code(s): I10 - ESSENTIAL (PRIMARY) HYPERTENSION Qualifiers: Hypertension type: essential hypertension Qualified Code(s): I10 - Essential (primary) hypertension (3) Hypertriglyceridemia Code(s): E78.1 - PURE HYPERGLYCERIDEMIA (4) Leg edema Code(s): R60.0 - LOCALIZED EDEMA Qualifiers: Laterality: bilateral Qualified Code(s): R60.0 - Localized edema (5) Shortness of breath Code(s): R06.02 - SHORTNESS OF BREATH (6) CKD (chronic kidney disease) Code(s): N18.9 - CHRONIC KIDNEY DISEASE, UNSPECIFIED Qualifiers: Chronic kidney disease stage: unspecified stage Qualified Code(s): N18.9 - Chronic kidney disease, unspecified (7) COPD (chronic obstructive pulmonary disease) Code(s): J44.9 - CHRONIC OBSTRUCTIVE PULMONARY DISEASE, UNSPECIFIED Qualifiers : COPD type: chronic bronchitis (8) Diabetes mellitus Code(s): E11.9 - TYPE 2 DIABETES MELLITUS WITHOUT COMPLICATIONS Qualifiers: Diabetes mellitus type: type 2 Diabetes mellitus complication status: without complication Diabetes mellitus machine long goods helper insulin use: with fci use Qualified Code(s): E11.9 - Type 2 diabetes mellitus without complications (9) Anemia Code(s): D64.9 - ANEMIA, UNSPECIFIED Qualifiers: Anemia type: unspecified type Qualified Code(s): D64.9 - Anemia, unspecified Assessment/Plan 10/15/2016 Echo: Normal LV size and fxn, mild cLVH, no sig valve abnl 1. Acute on Chronic LV Diastolic Heart Failure resolving 2. COPD with Chronic Hypoxic Respiratory Failure 3. Insulin-dependent Type 2 diabetes mellitus 4. Hypercholesterolemia 5. Anemia 6. CKD 7. HTN PLAN: 1. Decrease diuresis with monitoring diuretic response, renal function and electrolytes 2. Continue ASA 81 mg QD, Lopid 600 mg BID, Cardizem CD 120 mg QD, Cozaar 25 mg QD and Hytrin 5 mg QHS 3. Bronchodilator, O2 to keep SpO2 >90%, steroid taper, Daliresp and antibiotic coverage, compression therapy 4. DVT prophylaxis, mobilize
--- NOTE | 2016-10-17 11:32 | PN ---
Progress Note, Physician History of Present Illness: PULMONARY ALERT,OOB-CHAIR,+COUGH,+CONGESTION. - Current Medication List Current Medications: Active Medications Acetaminophen (Tylenol -) 650 mg PO Q6H PRN PRN Reason: FEVER OR PAIN Albuterol/Ipratropium (Duoneb -) 1 amp NEB Q6H PRN PRN Reason: SHORTNESS OF BREATH Last Admin: 10/17/16 06:55 Dose: 1 amp Allopurinol (Zyloprim -) 100 mg PO DAILY [facility] Last Admin: 10/17/16 11:03 Dose: 100 mg Aspirin (Asa -) 81 mg PO DAILY [facility] Last Admin: 10/17/16 11:02 Dose: 81 mg Budesonide/Formoterol Fumarate (Symbicort 160/4.5mcg -) 2 puff IH BID [facility] Last Admin: 10/17/16 11:04 Dose: 2 puff Buspirone HCl (Buspar -) 5 mg PO BID [facility] Last Admin: 10/17/16 11:03 Dose: Not Given Diltiazem HCl (Cardizem Cd -) 120 mg PO DAILY [facility] Last Admin: 10/17/16 11:02 Dose: 120 mg Docusate Sodium (Colace -) 100 mg PO Q8H PRN PRN Reason: CONSTIPATION Fentanyl (Duragesic 75mcg Patch -) 1 patch TD Q72H [facility] Last Admin: 10/14/16 22:19 Dose: 1 patch Ferrous Sulfate (Feosol -) 325 mg PO DAILY [facility] Last Admin: 10/17/16 11:03 Dose: 325 mg Furosemide (Lasix Injection -) 40 mg IVPUSH BIDLASIX [facility] Gemfibrozil (Lopid -) 600 mg PO BID@0700,1630 [facility] Last Admin: 10/17/16 06:45 Dose: 600 mg Guaifenesin/Codeine Phosphate (Robitussin Ac -) 5 ml PO TID PRN PRN Reason: COUGH Heparin Sodium (Porcine) (Heparin -) 5,000 unit SQ BID [facility] Last Admin: 10/17/16 10:58 Dose: 5,000 unit Hydromorphone HCl (Dilaudid Injection -) 2 mg IVPB HS PRN PRN Reason: PAIN Last Admin: 10/16/16 22:43 Dose: 2 mg Insulin Aspart (Novolog Vial Sliding Scale -) 1 vial SQ ACHS [facility] PRN Reason: Protocol Last Admin: 10/17/16 06:44 Dose: Not Given Insulin Aspart (Novolog Mix 70/30 Vial) 35 units SQ BIDAC [facility] Last Admin: 10/17/16 06:45 Dose: 35 units Lactulose (Cephulac (Oral Use)) 20 gm PO BID [facility] Last Admin: 10/17/16 11:02 Dose: 20 gm Losartan Potassium (Cozaar -) 25 mg PO DAILY [facility] Last Admin: 10/17/16 11:03 Dose: 25 mg Miscellaneous (Duragesic Patch Waste) 1 each MC PRN PRN PRN Reason: PAIN Last Admin: 10/14/16 22:18 Dose: 1 each Oxycodone HCl (Roxicodone -) 10 mg PO Q6H PRN PRN Reason: PAIN Last Admin: 10/16/16 13:29 Dose: 10 mg Prednisone (Deltasone -) 40 mg PO DAILY [facility] Last Admin: 10/17/16 11:03 Dose: 40 mg Roflumilast (Daliresp -) 500 mcg PO DAILY [facility] Last Admin: 10/17/16 11:03 Dose: 500 mcg Senna (Senna -) 1 tab PO HS [facility] Last Admin: 10/16/16 22:12 Dose: 1 tab Sitagliptin Phosphate (Januvia -) 25 mg PO DAILY@0700 [facility] Last Admin: 10/17/16 06:44 Dose: 25 mg Sodium Chloride ([place] Nasal [place] -) 2 spray NS TID PRN PRN Reason: NASAL CONGESTION Tamsulosin HCl (Flomax -) 0.4 mg PO DAILY@0830 [facility] Last Admin: 10/17/16 11:04 Dose: 0.4 mg Terazosin HCl (Hytrin -) 5 mg PO HS [facility] Last Admin: 10/16/16 22:14 Dose: 5 mg Tiotropium [place] (Spiriva -) 1 puff IH DAILY [facility] Last Admin: 10/17/16 11:04 Dose: 1 puff Zolpidem Tartrate (Ambien -) 5 mg PO HS PRN PRN Reason: INSOMNIA Last Admin: 10/16/16 22:20 Dose: 5 mg - Objective Vital Signs: Vital Signs Temperature 98.2 F 10/17/16 06:49 Pulse Rate 90 10/17/16 06:49 Respiratory Rate 20 10/17/16 06:49 Blood Pressure 134/72 10/17/16 06:49 O2 Sat by Pulse Oximetry (%) 96 10/16/16 22:00 Constitutional: Yes: Calm, Obese Eyes: Yes: WNL HENT: Yes: WNL Neck: Yes: WNL Cardiovascular: Yes: Regular Rate and Rhythm, S1, S2 Respiratory: Yes: Rhonchi (BILATERAL RHONCHI AND WHEEZES), Wheezes Gastrointestinal: Yes: Normal Bowel Sounds, Soft Extremities: Yes: WNL Edema: Yes Labs: CBC, BMP 10/17/16 07:45 10/17/16 07:45 INR, PTT INR 1.00 (0.82-1.09) 10/14/16 17:19 Assessment/Plan Problem List - Problems (1) Acute on chronic diastolic (congestive) heart failure Code(s): I50.33 - ACUTE ON CHRONIC DIASTOLIC (CONGESTIVE) HEART FAILURE (2) COPD (chronic obstructive pulmonary disease) Code(s): J44.9 - CHRONIC OBSTRUCTIVE PULMONARY DISEASE, UNSPECIFIED Qualifiers : COPD type: chronic bronchitis (3) Chronic respiratory failure with hypoxia Code(s): J96.11 - CHRONIC RESPIRATORY FAILURE WITH HYPOXIA (4) Atelectasis Code(s): J98.11 - ATELECTASIS (5) Diabetes mellitus, insulin dependent (IDDM), uncontrolled Code(s): E10.65 - TYPE 1 DIABETES MELLITUS WITH HYPERGLYCEMIA Qualifiers: Diabetes mellitus complication status: without complication Qualified Code(s): E10.9 - Type 1 diabetes mellitus without complications (6) HTN (hypertension) Code(s): I10 - ESSENTIAL (PRIMARY) HYPERTENSION Qualifiers: Hypertension type: essential hypertension Qualified Code(s): I10 - Essential (primary) hypertension Assessment/Plan Acute on Chronic LV Diastolic Heart Failure COPD Atelectasis Recent Pneumonia Chronic Hypoxic Respiratory Failure CKD HTN DM Hyperlipidemia - continue IV lasix - monitor urine output, creatinine - I/Os, daily weights - inhaled bronchodilators - O2 to keep SpO2 >90% - steroids - incentive spirometry - PO as tolerated - DVT prophylaxis - chest pt DR CEVALLOS
--- NOTE | 2016-10-17 12:49 | PN ---
Progress Note, Physician History of Present Illness: Pt seen and examined at bedside. He is awake and alert. He feels that his breathing is starting to improve. - Current Medication List Current Medications: Active Medications Acetaminophen (Tylenol -) 650 mg PO Q6H PRN PRN Reason: FEVER OR PAIN Albuterol/Ipratropium (Duoneb -) 1 amp NEB Q6H PRN PRN Reason: SHORTNESS OF BREATH Last Admin: 10/17/16 06:55 Dose: 1 amp Allopurinol (Zyloprim -) 100 mg PO DAILY [facility] Last Admin: 10/17/16 11:03 Dose: 100 mg Aspirin (Asa -) 81 mg PO DAILY [facility] Last Admin: 10/17/16 11:02 Dose: 81 mg Budesonide/Formoterol Fumarate (Symbicort 160/4.5mcg -) 2 puff IH BID [facility] Last Admin: 10/17/16 11:04 Dose: 2 puff Buspirone HCl (Buspar -) 5 mg PO BID [facility] Last Admin: 10/17/16 11:03 Dose: Not Given Diltiazem HCl (Cardizem Cd -) 120 mg PO DAILY [facility] Last Admin: 10/17/16 11:02 Dose: 120 mg Docusate Sodium (Colace -) 100 mg PO Q8H PRN PRN Reason: CONSTIPATION Fentanyl (Duragesic 75mcg Patch -) 1 patch TD Q72H [facility] Last Admin: 10/14/16 22:19 Dose: 1 patch Ferrous Sulfate (Feosol -) 325 mg PO DAILY [facility] Last Admin: 10/17/16 11:03 Dose: 325 mg Furosemide (Lasix Injection -) 40 mg IVPUSH BIDLASIX [facility] Gemfibrozil (Lopid -) 600 mg PO BID@0700,1630 [facility] Last Admin: 10/17/16 06:45 Dose: 600 mg Guaifenesin/Codeine Phosphate (Robitussin Ac -) 5 ml PO TID PRN PRN Reason: COUGH Heparin Sodium (Porcine) (Heparin -) 5,000 unit SQ BID [facility] Last Admin: 10/17/16 10:58 Dose: 5,000 unit Hydromorphone HCl (Dilaudid Injection -) 2 mg IVPB HS PRN PRN Reason: PAIN Last Admin: 10/16/16 22:43 Dose: 2 mg Insulin Aspart (Novolog Vial Sliding Scale -) 1 vial SQ ACHS [facility] PRN Reason: Protocol Last Admin: 10/17/16 06:44 Dose: Not Given Insulin Aspart (Novolog Mix 70/30 Vial) 35 units SQ BIDAC [facility] Last Admin: 10/17/16 06:45 Dose: 35 units Lactulose (Cephulac (Oral Use)) 20 gm PO BID [facility] Last Admin: 10/17/16 11:02 Dose: 20 gm Losartan Potassium (Cozaar -) 25 mg PO DAILY [facility] Last Admin: 10/17/16 11:03 Dose: 25 mg Miscellaneous (Duragesic Patch Waste) 1 each MC PRN PRN PRN Reason: PAIN Last Admin: 10/14/16 22:18 Dose: 1 each Oxycodone HCl (Roxicodone -) 10 mg PO Q6H PRN PRN Reason: PAIN Last Admin: 10/16/16 13:29 Dose: 10 mg Prednisone (Deltasone -) 40 mg PO DAILY [facility] Last Admin: 10/17/16 11:03 Dose: 40 mg Roflumilast (Daliresp -) 500 mcg PO DAILY [facility] Last Admin: 10/17/16 11:03 Dose: 500 mcg Senna (Senna -) 1 tab PO HS [facility] Last Admin: 10/16/16 22:12 Dose: 1 tab Sitagliptin Phosphate (Januvia -) 25 mg PO DAILY@0700 [facility] Last Admin: 10/17/16 06:44 Dose: 25 mg Sodium Chloride ([place] Nasal [place] -) 2 spray NS TID PRN PRN Reason: NASAL CONGESTION Tamsulosin HCl (Flomax -) 0.4 mg PO DAILY@0830 [facility] Last Admin: 10/17/16 11:04 Dose: 0.4 mg Terazosin HCl (Hytrin -) 5 mg PO HS [facility] Last Admin: 10/16/16 22:14 Dose: 5 mg Tiotropium [place] (Spiriva -) 1 puff IH DAILY [facility] Last Admin: 10/17/16 11:04 Dose: 1 puff Zolpidem Tartrate (Ambien -) 5 mg PO HS PRN PRN Reason: INSOMNIA Last Admin: 10/16/16 22:20 Dose: 5 mg - Objective Vital Signs: Vital Signs Temperature 98.2 F 10/17/16 12:11 Pulse Rate 85 10/17/16 12:11 Respiratory Rate 20 10/17/16 12:11 Blood Pressure 125/60 10/17/16 12:11 O2 Sat by Pulse Oximetry (%) 96 10/16/16 22:00 Constitutional: Yes: Calm HENT: Yes: Atraumatic Cardiovascular: Yes: S1, S2 Respiratory: Yes: On Nasal O2, Wheezes Gastrointestinal: Yes: Soft, Abdomen, Obese Genitourinary: Yes: WNL Musculoskeletal: Yes: WNL Edema: Yes Edema: LLE: 1+, RLE: 1+ Neurological: Yes: Oriented Psychiatric: Yes: Oriented Labs: CBC, BMP 10/17/16 07:45 10/17/16 07:45 INR, PTT INR 1.00 (0.82-1.09) 10/14/16 17:19 Problem List - Problems (1) COPD exacerbation Code(s): J44.1 - CHRONIC OBSTRUCTIVE PULMONARY DISEASE W (ACUTE) EXACERBATION (2) Chronic respiratory failure with hypoxia Code(s): J96.11 - CHRONIC RESPIRATORY FAILURE WITH HYPOXIA (3) Diabetes mellitus, insulin dependent (IDDM), uncontrolled Code(s): E10.65 - TYPE 1 DIABETES MELLITUS WITH HYPERGLYCEMIA Qualifiers: Diabetes mellitus complication status: without complication Qualified Code(s): E10.9 - Type 1 diabetes mellitus without complications (4) HTN (hypertension) Code(s): I10 - ESSENTIAL (PRIMARY) HYPERTENSION Qualifiers: Hypertension type: essential hypertension Qualified Code(s): I10 - Essential (primary) hypertension (5) Shortness of breath Code(s): R06.02 - SHORTNESS OF BREATH (6) Anemia Code(s): D64.9 - ANEMIA, UNSPECIFIED Qualifiers: Anemia type: unspecified type Qualified Code(s): D64.9 - Anemia, unspecified (7) CHF (congestive heart failure) Code(s): I50.9 - HEART FAILURE, UNSPECIFIED Qualifiers: Congestive heart failure type: diastolic (8) CKD (chronic kidney disease) Code(s): N18.9 - CHRONIC KIDNEY DISEASE, UNSPECIFIED Qualifiers: Chronic kidney disease stage: unspecified stage Qualified Code(s): N18.9 - Chronic kidney disease, unspecified (9) COPD (chronic obstructive pulmonary disease) Code(s): J44.9 - CHRONIC OBSTRUCTIVE PULMONARY DISEASE, UNSPECIFIED Qualifiers : COPD type: chronic bronchitis (10) GERD (gastroesophageal reflux disease) Code(s): K21.9 - GASTRO-ESOPHAGEAL REFLUX DISEASE WITHOUT ESOPHAGITIS Assessment/Plan Current Medications Generic Name Dose Route Start Last Admin Trade Name Freq PRN Reason Stop Dose Admin Acetaminophen 650 mg 10/14/16 21:18 Tylenol - PO Q6H PRN FEVER OR PAIN Albuterol/Ipratropium 1 amp 10/14/16 21:18 10/17/16 06:55 Duoneb - NEB 1 amp Q6H PRN Administration SHORTNESS OF BREATH Allopurinol 100 mg 10/15/16 10:00 10/17/16 11:03 Zyloprim - PO 100 mg DAILY [facility] Administration Aspirin 81 mg 10/15/16 10:00 10/17/16 11:02 Asa - PO 81 mg DAILY [facility] Administration Budesonide/Formoterol Fumarate 2 puff 10/14/16 22:00 10/17/16 11:04 Symbicort 160/4.5mcg - IH 2 puff BID [facility] Administration Buspirone HCl 5 mg 10/14/16 22:00 10/17/16 11:03 Buspar - PO Not Given BID [facility] Diltiazem HCl 120 mg 10/15/16 10:00 10/17/16 11:02 Cardizem Cd - PO 120 mg DAILY [facility] Administration Docusate Sodium 100 mg 10/14/16 21:18 Colace - PO Q8H PRN CONSTIPATION Fentanyl 1 patch 10/14/16 21:30 10/14/16 22:19 Duragesic 75mcg Patch - TD 1 patch Q72H [facility] Administration Ferrous Sulfate 325 mg 10/15/16 10:00 10/17/16 11:03 Feosol - PO 325 mg DAILY [facility] Administration Furosemide 40 mg 10/17/16 11:19 Lasix Injection - IVPUSH BIDLASIX [facility] Gemfibrozil 600 mg 10/15/16 07:00 10/17/16 06:45 Lopid - PO 600 mg BID@0700,1630 [facility] Administration Guaifenesin/Codeine Phosphate 5 ml 10/14/16 21:18 Robitussin Ac - PO TID PRN COUGH Heparin Sodium (Porcine) 5,000 unit 10/14/16 22:00 10/17/16 10:58 Heparin - SQ 5,000 unit BID [facility] Administration Hydromorphone HCl 2 mg 10/16/16 08:12 10/16/16 22:43 Dilaudid Injection - IVPB 2 mg HS PRN Administration PAIN Insulin Aspart 1 vial 10/14/16 22:00 10/17/16 06:44 Novolog Vial Sliding Scale - SQ Not Given ACHS [facility] Protocol Insulin Aspart 35 units 10/15/16 07:00 10/17/16 06:45 Novolog Mix 70/30 Vial SQ 35 units BIDAC [facility] Administration Lactulose 20 gm 10/14/16 22:00 10/17/16 11:02 Cephulac (Oral Use) PO 20 gm BID [facility] Administration Losartan Potassium 25 mg 10/15/16 10:00 10/17/16 11:03 Cozaar - PO 25 mg DAILY [facility] Administration Miscellaneous 1 each 10/14/16 21:18 10/14/16 22:18 Duragesic Patch Waste MC 1 each PRN PRN Administration PAIN Oxycodone HCl 10 mg 10/14/16 21:18 10/16/16 13:29 Roxicodone - PO 10 mg Q6H PRN Administration PAIN Prednisone 40 mg 10/16/16 10:00 10/17/16 11:03 Deltasone - PO 40 mg DAILY [facility] Administration Roflumilast 500 mcg 10/15/16 10:00 10/17/16 11:03 Daliresp - PO 500 mcg DAILY [facility] Administration Senna 1 tab 10/14/16 22:00 10/16/16 22:12 Senna - PO 1 tab HS [facility] Administration Sitagliptin Phosphate 25 mg 10/15/16 07:00 10/17/16 06:44 Januvia - PO 25 mg DAILY@0700 [facility] Administration Sodium Chloride 2 spray 10/14/16 21:18 [place] Nasal [place] - NS TID PRN NASAL CONGESTION Tamsulosin HCl 0.4 mg 10/15/16 08:30 10/17/16 11:04 Flomax - PO 0.4 mg DAILY@0830 [facility] Administration Terazosin HCl 5 mg 10/14/16 22:00 10/16/16 22:14 Hytrin - PO 5 mg HS [facility] Administration Tiotropium [place] 1 puff 10/16/16 10:00 10/17/16 11:04 Spiriva - IH 1 puff DAILY [facility] Administration Zolpidem Tartrate 5 mg 10/14/16 21:18 10/16/16 22:20 Ambien - PO 5 mg HS PRN Administration INSOMNIA Impression 1. CKD 2. DM 3. HTN 4. CHF 5. COPD 6. fluid overload 7. BPH 8. insomnia 9. narcotic dependence Plan - cont current meds - will monitor renal function - his baseline creatinine is about 1.7 from last outpt visit - he follows with Dr Nelson - repeat labs in am - pulm input appreciated - elevate legs when possible - will follow Dr Nathan
[2016-10-17] MEDS: oxyCODONE HCL 5 MG TABLET PO PRN (13:21)
[2016-10-17] MEDS: FUROSEMIDE 40 MG/4 ML INJECTABLE VIAL IVPUSH SCH (13:21)
[2016-10-17] MEDS ORDERED: INSULIN (NOVOLOG) ASPART 100 UNITS/ML 10ML VIAL ONE (17:46)
[2016-10-17] MEDS: SENNOSIDES 8.6MG TABLET (FP) PO SCH (22:18)
[2016-10-17] MEDS: fentaNYL 75mcg/hr PATCH.TD72 TD SCH (22:20)
[2016-10-17] MEDS: TERAZOSIN HCL 5 MG CAPSULE PO SCH (22:20)
[2016-10-17] MEDS: HYDROmorphone HCL CARPU-JECT 1 MG/1 ML DISP.SYRIN IVPB PRN (22:30)
[2016-10-18] MEDS: ALBUTEROL SO4 2.5/IPRATROPIUM 0.5 INH SOL 3 ML VIAL.NEB. NEB PRN ×3 (00:47→19:07)
[2016-10-18] MEDS ORDERED: PT OWN MED DRAWER 7, Y5N ONE ×4 (03:09→20:22)
[2016-10-18] MEDS: FUROSEMIDE 40 MG/4 ML INJECTABLE VIAL IVPUSH SCH (05:22)
[2016-10-18] MEDS: GEMFIBROZIL 600 MG TABLET (FP) PO SCH ×2 (06:42→17:40)
[2016-10-18] MEDS: sitaGLIPtin PHOSPHATE 25 MG TABLET (FP) PO SCH (06:42)
[2016-10-18] MEDS: INSULIN SLIDING SCALE (NOVOLOG) 1 VIAL SQ SCH ×4 (06:44→21:23)
[2016-10-18] MEDS: INSULIN (NOVOLOG MIX 70/30) 100 UNITS/ML MDV SQ SCH ×2 (07:07→17:39)
[2016-10-18] MEDS ORDERED: INSULIN DETEMIR 100 UNITS/ML MDV SQ ONE (07:17)
[2016-10-18] MEDS ORDERED: INSULIN (NOVOLOG) ASPART 100 UNITS/ML 10ML VIAL ONE (07:19)
[2016-10-18] MEDS ORDERED: INSULIN (NOVOLOG MIX 70/30) 100 UNITS/ML MDV SQ ONE (07:19)
[2016-10-18 07:51] LABS: BASOPHIL 0.2 % (0-2.0); EOSINOPHIL 0.1 % (0-4.5); MCH 30.2 pg (25.7-33.7); MCHC 32.6 g/dl (32.0-35.9); MEAN CELL VOLUME 92.5 fl (80-96); MEAN PLT VOLUME 9.7 fl (7.5-11.1); NEUTROPHILS 84.2 % (42.8-82.8); PLATELET COUNT 156 K/MM3 (134-434); RDW 15.8 % (11.9-15.9); WHITE BLOOD COUNT 8.8 K/mm3 (4.0-10.0)
[2016-10-18 08:09] LABS: ALBUMIN 3.1 g/dl (3.4-5.0); BILIRUBIN,TOTAL 0.4 mg/dL (0.2-1.0); CALCIUM 8.9 mg/dL (8.5-10.1); CREATININE 1.7 mg/dL (0.7-1.3); TOT PROT 6.4 g/dl (6.4-8.2)
--- NOTE | 2016-10-18 09:25 | PN ---
Progress Note, Physician History of Present Illness: FEELS BETTER - Current Medication List Current Medications: Active Medications Acetaminophen (Tylenol -) 650 mg PO Q6H PRN PRN Reason: FEVER OR PAIN Albuterol/Ipratropium (Duoneb -) 1 amp NEB Q6H PRN PRN Reason: SHORTNESS OF BREATH Last Admin: 10/18/16 00:47 Dose: 1 amp Allopurinol (Zyloprim -) 100 mg PO DAILY [facility] Last Admin: 10/17/16 11:03 Dose: 100 mg Aspirin (Asa -) 81 mg PO DAILY [facility] Last Admin: 10/17/16 11:02 Dose: 81 mg Budesonide/Formoterol Fumarate (Symbicort 160/4.5mcg -) 2 puff IH BID [facility] Last Admin: 10/17/16 22:20 Dose: 2 puff Buspirone HCl (Buspar -) 5 mg PO BID [facility] Last Admin: 10/17/16 22:19 Dose: Not Given Diltiazem HCl (Cardizem Cd -) 120 mg PO DAILY [facility] Last Admin: 10/17/16 11:02 Dose: 120 mg Docusate Sodium (Colace -) 100 mg PO Q8H PRN PRN Reason: CONSTIPATION Fentanyl (Duragesic 75mcg Patch -) 1 patch TD Q72H [facility] Last Admin: 10/17/16 22:20 Dose: 1 patch Ferrous Sulfate (Feosol -) 325 mg PO DAILY [facility] Last Admin: 10/17/16 11:03 Dose: 325 mg Furosemide (Lasix Injection -) 40 mg IVPUSH BIDLASIX [facility] Last Admin: 10/18/16 05:22 Dose: 40 mg Gemfibrozil (Lopid -) 600 mg PO BID@0700,1630 [facility] Last Admin: 10/18/16 06:42 Dose: 600 mg Heparin Sodium (Porcine) (Heparin -) 5,000 unit SQ BID [facility] Last Admin: 10/17/16 22:08 Dose: 5,000 unit Hydromorphone HCl (Dilaudid Injection -) 2 mg IVPB HS PRN PRN Reason: PAIN Last Admin: 10/17/16 22:30 Dose: 2 mg Insulin Aspart (Novolog Vial Sliding Scale -) 1 vial SQ ACHS [facility] PRN Reason: Protocol Last Admin: 10/18/16 06:44 Dose: Not Given Insulin Aspart (Novolog Mix 70/30 Vial) 35 units SQ BIDAC [facility] Last Admin: 10/18/16 07:07 Dose: 35 units Lactulose (Cephulac (Oral Use)) 20 gm PO BID [facility] Last Admin: 10/17/16 22:18 Dose: 20 gm Losartan Potassium (Cozaar -) 25 mg PO DAILY [facility] Last Admin: 10/17/16 11:03 Dose: 25 mg Miscellaneous (Duragesic Patch Waste) 1 each MC PRN PRN PRN Reason: PAIN Last Admin: 10/14/16 22:18 Dose: 1 each Prednisone (Deltasone -) 40 mg PO DAILY [facility] Last Admin: 10/17/16 11:03 Dose: 40 mg Roflumilast (Daliresp -) 500 mcg PO DAILY [facility] Last Admin: 10/17/16 11:03 Dose: 500 mcg Senna (Senna -) 1 tab PO HS [facility] Last Admin: 10/17/16 22:18 Dose: 1 tab Sitagliptin Phosphate (Januvia -) 25 mg PO DAILY@0700 [facility] Last Admin: 10/18/16 06:42 Dose: 25 mg Sodium Chloride ([place] Nasal [place] -) 2 spray NS TID PRN PRN Reason: NASAL CONGESTION Tamsulosin HCl (Flomax -) 0.4 mg PO DAILY@0830 [facility] Last Admin: 10/17/16 11:04 Dose: 0.4 mg Terazosin HCl (Hytrin -) 5 mg PO HS [facility] Last Admin: 10/17/16 22:20 Dose: 5 mg Tiotropium [place] (Spiriva -) 1 puff IH DAILY [facility] Last Admin: 10/17/16 11:04 Dose: 1 puff - Objective Vital Signs: Vital Signs Temperature 98.1 F 10/18/16 06:00 Pulse Rate 90 10/18/16 06:00 Respiratory Rate 18 10/18/16 06:00 Blood Pressure 150/80 10/18/16 06:00 O2 Sat by Pulse Oximetry (%) 96 10/17/16 22:00 Cardiovascular: Yes: S1, S2 Respiratory: Yes: Rhonchi Gastrointestinal: Yes: Normal Bowel Sounds, Soft Labs: CBC, BMP 10/18/16 06:30 10/18/16 06:30 INR, PTT INR 1.00 (0.82-1.09) 10/14/16 17:19 Assessment/Plan Problems (1) Leg edema Assessment/Plan: renal increase iv lasix --TO PO 80 QD monitor lytes Code(s): R60.0 - LOCALIZED EDEMA Qualifiers: Laterality: bilateral Qualified Code(s): R60.0 - Localized edema (2) COPD exacerbation Assessment/Plan: pulm steroids symbicort daliresp spiriva patient doesn't want turdoza oxygen [place] Code(s): J44.1 - CHRONIC OBSTRUCTIVE PULMONARY DISEASE W (ACUTE) EXACERBATION (3) HTN (hypertension) Assessment/Plan: cozaar cardizem Code(s): I10 - ESSENTIAL (PRIMARY) HYPERTENSION Qualifiers: Hypertension type: essential hypertension Qualified Code(s): I10 - Essential (primary) hypertension (4) Hypertriglyceridemia Assessment/Plan: lopid Code(s): E78.1 - PURE HYPERGLYCERIDEMIA (5) BPH (benign prostatic hyperplasia) Assessment/Plan: hytrin and flomax Code(s): N40.0 - BENIGN PROSTATIC HYPERPLASIA WITHOUT LOWER URINRY TRACT SYMP (6) Chronic back pain greater than 3 months duration Assessment/Plan: fentanyl and oxycodone Code(s): M54.9 - DORSALGIA, UNSPECIFIED G89.29 - OTHER CHRONIC PAIN
--- NOTE | 2016-10-18 09:58 | PN ---
Progress Note (short form) - Note Progress Note: No acute events overnight. Some congested cough (likely baseline). No CP. No fever. Intake & Output 10/15/16 10/16/16 10/17/16 10/18/16 23:59 23:59 23:59 23:59 Intake Total 650 1450 1000 Output Total 200 600 700 400 Balance 450 850 300 -400 Weight 238 lb 240 lb 6 oz 237 lb 7 oz 232 lb 14.4 oz Last Vital Signs Temp Pulse Resp BP Pulse Ox 98.1 F 90 18 150/80 96 10/18/16 06:00 10/18/16 06:00 10/18/16 06:00 10/18/16 06:00 10/17/16 22:00 Active Medications Acetaminophen (Tylenol -) 650 mg PO Q6H PRN PRN Reason: FEVER OR PAIN Albuterol/Ipratropium (Duoneb -) 1 amp NEB Q6H PRN PRN Reason: SHORTNESS OF BREATH Last Admin: 10/18/16 00:47 Dose: 1 amp Allopurinol (Zyloprim -) 100 mg PO DAILY [facility] Last Admin: 10/17/16 11:03 Dose: 100 mg Aspirin (Asa -) 81 mg PO DAILY [facility] Last Admin: 10/17/16 11:02 Dose: 81 mg Budesonide/Formoterol Fumarate (Symbicort 160/4.5mcg -) 2 puff IH BID [facility] Last Admin: 10/17/16 22:20 Dose: 2 puff Buspirone HCl (Buspar -) 5 mg PO BID [facility] Last Admin: 10/17/16 22:19 Dose: Not Given Diltiazem HCl (Cardizem Cd -) 120 mg PO DAILY [facility] Last Admin: 10/17/16 11:02 Dose: 120 mg Docusate Sodium (Colace -) 100 mg PO Q8H PRN PRN Reason: CONSTIPATION Fentanyl (Duragesic 75mcg Patch -) 1 patch TD Q72H [facility] Last Admin: 10/17/16 22:20 Dose: 1 patch Ferrous Sulfate (Feosol -) 325 mg PO DAILY [facility] Last Admin: 10/17/16 11:03 Dose: 325 mg Furosemide (Lasix Injection -) 40 mg IVPUSH BIDLASIX [facility] Last Admin: 10/18/16 05:22 Dose: 40 mg Gemfibrozil (Lopid -) 600 mg PO BID@0700,1630 [facility] Last Admin: 10/18/16 06:42 Dose: 600 mg Heparin Sodium (Porcine) (Heparin -) 5,000 unit SQ BID [facility] Last Admin: 10/17/16 22:08 Dose: 5,000 unit Hydromorphone HCl (Dilaudid Injection -) 2 mg IVPB HS PRN PRN Reason: PAIN Last Admin: 10/17/16 22:30 Dose: 2 mg Insulin Aspart (Novolog Vial Sliding Scale -) 1 vial SQ ACHS [facility] PRN Reason: Protocol Last Admin: 10/18/16 06:44 Dose: Not Given Insulin Aspart (Novolog Mix 70/30 Vial) 35 units SQ BIDAC [facility] Last Admin: 10/18/16 07:07 Dose: 35 units Lactulose (Cephulac (Oral Use)) 20 gm PO BID [facility] Last Admin: 10/17/16 22:18 Dose: 20 gm Losartan Potassium (Cozaar -) 25 mg PO DAILY [facility] Last Admin: 10/17/16 11:03 Dose: 25 mg Miscellaneous (Duragesic Patch Waste) 1 each MC PRN PRN PRN Reason: PAIN Last Admin: 10/14/16 22:18 Dose: 1 each Prednisone (Deltasone -) 40 mg PO DAILY [facility] Last Admin: 10/17/16 11:03 Dose: 40 mg Roflumilast (Daliresp -) 500 mcg PO DAILY [facility] Last Admin: 10/17/16 11:03 Dose: 500 mcg Senna (Senna -) 1 tab PO HS [facility] Last Admin: 10/17/16 22:18 Dose: 1 tab Sitagliptin Phosphate (Januvia -) 25 mg PO DAILY@0700 [facility] Last Admin: 10/18/16 06:42 Dose: 25 mg Sodium Chloride ([place]al [place] -) 2 spray NS TID PRN PRN Reason: NASAL CONGESTION Tamsulosin HCl (Flomax -) 0.4 mg PO DAILY@0830 [facility] Last Admin: 10/17/16 11:04 Dose: 0.4 mg Terazosin HCl (Hytrin -) 5 mg PO HS [facility] Last Admin: 10/17/16 22:20 Dose: 5 mg Tiotropium [place] (Spiriva -) 1 puff IH DAILY [facility] Last Admin: 10/17/16 11:04 Dose: 1 puff Constitutional: Yes: NAD Eyes: Yes: Conjunctiva Clear, EOM Intact HENT: Yes: Atraumatic, Normocephalic Neck: Yes: Supple, Trachea Midline Cardiovascular: Yes: Regular Rate and Rhythm Respiratory: Yes: Rhonchi, no wheeze ...Clubbing: No Gastrointestinal: Yes: Normal Bowel Sounds, Soft, Abdomen, Obese. No: Tenderness Edema: Yes Neurological: Yes: Alert, Oriented Laboratory Results - last 24 hr 10/16/16 10/16/16 10/17/16 11:56 12:00 11:35 WBC RBC Hgb Hct MCV MCHC RDW Plt Count MPV Neutrophils % Lymphocytes % Monocytes % Eosinophils % Basophils % Sodium Potassium Chloride Carbon Dioxide Anion Gap BUN Creatinine Creat Clearance w eGFR POC Glucometer 116 267 128 Random Glucose Calcium Total Bilirubin AST ALT Alkaline Phosphatase Total Protein Albumin 10/17/16 10/17/16 10/18/16 17:40 21:42 06:05 WBC RBC Hgb Hct MCV MCHC RDW Plt Count MPV Neutrophils % Lymphocytes % Monocytes % Eosinophils % Basophils % Sodium Potassium Chloride Carbon Dioxide Anion Gap BUN Creatinine Creat Clearance w eGFR POC Glucometer 208 80 92 Random Glucose Calcium Total Bilirubin AST ALT Alkaline Phosphatase Total Protein Albumin 10/18/16 10/18/16 06:30 06:30 WBC 8.8 RBC 3.01 L Hgb 9.1 L Hct 27.9 L MCV 92.5 MCHC 32.6 RDW 15.8 Plt Count 156 MPV 9.7 Neutrophils % 84.2 H Lymphocytes % 9.3 Monocytes % 6.2 Eosinophils % 0.1 D Basophils % 0.2 Sodium 144 Potassium 3.4 L Chloride 102 Carbon Dioxide 30 Anion Gap 12 BUN 51 H Creatinine 1.7 H Creat Clearance w eGFR 39.82 POC Glucometer Random Glucose 82 D Calcium 8.9 Total Bilirubin 0.4 D AST 16 D ALT 24 Alkaline Phosphatase 42 L Total Protein 6.4 Albumin 3.1 L Problem List - Problems (1) Acute on chronic diastolic (congestive) heart failure Code(s): I50.33 - ACUTE ON CHRONIC DIASTOLIC (CONGESTIVE) HEART FAILURE (2) COPD (chronic obstructive pulmonary disease) Code(s): J44.9 - CHRONIC OBSTRUCTIVE PULMONARY DISEASE, UNSPECIFIED Qualifiers : COPD type: chronic bronchitis (3) Chronic respiratory failure with hypoxia Code(s): J96.11 - CHRONIC RESPIRATORY FAILURE WITH HYPOXIA (4) Atelectasis Code(s): J98.11 - ATELECTASIS (5) Diabetes mellitus, insulin dependent (IDDM), uncontrolled Code(s): E10.65 - TYPE 1 DIABETES MELLITUS WITH HYPERGLYCEMIA Qualifiers: Diabetes mellitus complication status: without complication Qualified Code(s): E10.9 - Type 1 diabetes mellitus without complications (6) HTN (hypertension) Code(s): I10 - ESSENTIAL (PRIMARY) HYPERTENSION Qualifiers: Hypertension type: essential hypertension Qualified Code(s): I10 - Essential (primary) hypertension Assessment/Plan Acute on Chronic LV Diastolic Heart Failure COPD Atelectasis Recent Pneumonia Chronic Hypoxic Respiratory Failure CKD HTN DM Hyperlipidemia - Lasix - monitor urine output, creatinine - I/Os, daily weights (weights appear off) - inhaled bronchodilators - O2 to keep SpO2 >90% - Prednisone - Monitor off ABX - DVT prophylaxis - D/C planning Dr Amaral
[2016-10-18] MEDS: busPIRone HCL 5 MG TABLET PO SCH ×2 (09:59→21:23)
[2016-10-18] MEDS: ASPIRIN 81 MG CHEWABLE TABLETS PO SCH (09:59)
[2016-10-18] MEDS: TAMSULOSIN HCL 0.4 MG CAP.ER.24H (FP) PO SCH (09:59)
[2016-10-18] MEDS: LOSARTAN POTASSIUM 25 MG TABLET PO SCH (10:00)
[2016-10-18] MEDS: predniSONE 20 MG TABLET (UD) PO SCH (10:00)
[2016-10-18] MEDS: ROFLUMILAST 500 MCG TABLET PO SCH (10:00)
[2016-10-18] MEDS: LACTULOSE 20 GM/30 ML UDC (FOR ORAL USE ONLY) PO SCH ×2 (10:00→21:23)
[2016-10-18] MEDS: ALLOPURINOL 100 MG TABLET (FP) PO SCH (10:01)
[2016-10-18] MEDS: HEPARIN NA (PORCINE) 5,000 UNITS/ML 1ML VIAL SQ SCH ×2 (10:01→21:23)
[2016-10-18] MEDS: FERROUS SO4 325 MG TABLET (FP) PO SCH (10:01)
[2016-10-18] MEDS: BUDESONIDE/FORMETEROL FUMARATE 160/4.5 mcg INHALER IH SCH ×2 (10:05→21:29)
[2016-10-18] MEDS ORDERED: HYDROmorphone HCL CARPU-JECT 2 MG/1 ML DISP.SYRIN IVPB ONE (11:15)
[2016-10-18] MEDS: TIOTROPIUM BROMIDE 18 MCG/INH (DEVICE W/ 5 CAPSULES) IH SCH (11:22)
--- NOTE | 2016-10-18 13:40 | PN ---
Progress Note, Physician History of Present Illness: Pt seen and examined at bedside. He still complains of wheezing. He denies dysuria. - Current Medication List Current Medications: Active Medications Acetaminophen (Tylenol -) 650 mg PO Q6H PRN PRN Reason: FEVER OR PAIN Albuterol/Ipratropium (Duoneb -) 1 amp NEB Q6H PRN PRN Reason: SHORTNESS OF BREATH Last Admin: 10/18/16 10:30 Dose: 1 amp Allopurinol (Zyloprim -) 100 mg PO DAILY [facility] Last Admin: 10/18/16 10:01 Dose: 100 mg Aspirin (Asa -) 81 mg PO DAILY [facility] Last Admin: 10/18/16 09:59 Dose: 81 mg Budesonide/Formoterol Fumarate (Symbicort 160/4.5mcg -) 2 puff IH BID [facility] Last Admin: 10/18/16 10:05 Dose: 2 puff Buspirone HCl (Buspar -) 5 mg PO BID [facility] Last Admin: 10/18/16 09:59 Dose: Not Given Diltiazem HCl (Cardizem Cd -) 120 mg PO DAILY [facility] Last Admin: 10/18/16 10:00 Dose: 120 mg Docusate Sodium (Colace -) 100 mg PO Q8H PRN PRN Reason: CONSTIPATION Fentanyl (Duragesic 75mcg Patch -) 1 patch TD Q72H [facility] Last Admin: 10/17/16 22:20 Dose: 1 patch Ferrous Sulfate (Feosol -) 325 mg PO DAILY [facility] Last Admin: 10/18/16 10:01 Dose: 325 mg Furosemide (Lasix -) 60 mg PO ONCE ONE Stop: 10/18/16 18:01 Furosemide (Lasix -) 80 mg PO DAILY [facility] Gemfibrozil (Lopid -) 600 mg PO BID@0700,1630 [facility] Last Admin: 10/18/16 06:42 Dose: 600 mg Heparin Sodium (Porcine) (Heparin -) 5,000 unit SQ BID [facility] Last Admin: 10/18/16 10:01 Dose: 5,000 unit Hydromorphone HCl (Dilaudid Injection -) 2 mg IVPB HS PRN PRN Reason: PAIN Last Admin: 10/17/16 22:30 Dose: 2 mg Insulin Aspart (Novolog Vial Sliding Scale -) 1 vial SQ ACHS [facility] PRN Reason: Protocol Last Admin: 10/18/16 11:22 Dose: Not Given Insulin Aspart (Novolog Mix 70/30 Vial) 35 units SQ BIDAC [facility] Last Admin: 10/18/16 07:07 Dose: 35 units Lactulose (Cephulac (Oral Use)) 20 gm PO BID [facility] Last Admin: 10/18/16 10:00 Dose: 20 gm Losartan Potassium (Cozaar -) 25 mg PO DAILY [facility] Last Admin: 10/18/16 10:00 Dose: 25 mg Miscellaneous (Duragesic Patch Waste) 1 each MC PRN PRN PRN Reason: PAIN Last Admin: 10/14/16 22:18 Dose: 1 each Prednisone (Deltasone -) 40 mg PO DAILY [facility] Last Admin: 10/18/16 10:00 Dose: 40 mg Roflumilast (Daliresp -) 500 mcg PO DAILY [facility] Last Admin: 10/18/16 10:00 Dose: 500 mcg Senna (Senna -) 1 tab PO [facility] Last Admin: 10/17/16 22:18 Dose: 1 tab Sitagliptin Phosphate (Januvia -) 25 mg PO DAILY@0700 [facility] Last Admin: 10/18/16 06:42 Dose: 25 mg Sodium Chloride ([place] Nas[place] -) 2 spray NS TID PRN PRN Reason: NASAL CONGESTION Tamsulosin HCl (Flomax -) 0.4 mg PO DAILY@0830 [facility] Last Admin: 10/18/16 09:59 Dose: 0.4 mg Terazosin HCl (Hytrin -) 5 mg PO HS [facility] Last Admin: 10/17/16 22:20 Dose: 5 mg Tiotropium [place] (Spiriva -) 1 puff IH DAILY [facility] Last Admin: 10/18/16 11:22 Dose: 1 puff - Objective Vital Signs: Vital Signs Temperature 98.1 F 10/18/16 06:00 Pulse Rate 90 10/18/16 12:24 Respiratory Rate 18 10/18/16 06:00 Blood Pressure 150/80 10/18/16 06:00 O2 Sat by Pulse Oximetry (%) 96 10/18/16 12:24 Constitutional: Yes: Calm Eyes: Yes: Conjunctiva Clear HENT: Yes: Atraumatic Cardiovascular: Yes: S1, S2 Respiratory: Yes: On Nasal O2, Wheezes Gastrointestinal: Yes: Soft Genitourinary: Yes: WNL Musculoskeletal: Yes: WNL Edema: Yes Edema: LLE: 1+, RLE: 1+ Neurological: Yes: Oriented Psychiatric: Yes: Oriented Labs: CBC, BMP 10/18/16 06:30 10/18/16 06:30 INR, PTT INR 1.00 (0.82-1.09) 10/14/16 17:19 Problem List - Problems (1) COPD exacerbation Code(s): J44.1 - CHRONIC OBSTRUCTIVE PULMONARY DISEASE W (ACUTE) EXACERBATION (2) Chronic respiratory failure with hypoxia Code(s): J96.11 - CHRONIC RESPIRATORY FAILURE WITH HYPOXIA (3) Diabetes mellitus, insulin dependent (IDDM), uncontrolled Code(s): E10.65 - TYPE 1 DIABETES MELLITUS WITH HYPERGLYCEMIA Qualifiers: Diabetes mellitus complication status: without complication Qualified Code(s): E10.9 - Type 1 diabetes mellitus without complications (4) HTN (hypertension) Code(s): I10 - ESSENTIAL (PRIMARY) HYPERTENSION Qualifiers: Hypertension type: essential hypertension Qualified Code(s): I10 - Essential (primary) hypertension (5) Shortness of breath Code(s): R06.02 - SHORTNESS OF BREATH (6) Anemia Code(s): D64.9 - ANEMIA, UNSPECIFIED Qualifiers: Anemia type: unspecified type Qualified Code(s): D64.9 - Anemia, unspecified (7) CHF (congestive heart failure) Code(s): I50.9 - HEART FAILURE, UNSPECIFIED Qualifiers: Congestive heart failure type: diastolic (8) CKD (chronic kidney disease) Code(s): N18.9 - CHRONIC KIDNEY DISEASE, UNSPECIFIED Qualifiers: Chronic kidney disease stage: unspecified stage Qualified Code(s): N18.9 - Chronic kidney disease, unspecified (9) COPD (chronic obstructive pulmonary disease) Code(s): J44.9 - CHRONIC OBSTRUCTIVE PULMONARY DISEASE, UNSPECIFIED Qualifiers : COPD type: chronic bronchitis (10) GERD (gastroesophageal reflux disease) Code(s): K21.9 - GASTRO-ESOPHAGEAL REFLUX DISEASE WITHOUT ESOPHAGITIS Assessment/Plan Current Medications Generic Name Dose Route Start Last Admin Trade Name Freq PRN Reason Stop Dose Admin Acetaminophen 650 mg 10/14/16 21:18 Tylenol - PO Q6H PRN FEVER OR PAIN Albuterol/Ipratropium 1 amp 10/14/16 21:18 10/18/16 10:30 Duoneb - NEB 1 amp Q6H PRN Administration SHORTNESS OF BREATH Allopurinol 100 mg 10/15/16 10:00 10/18/16 10:01 Zyloprim - PO 100 mg DAILY [facility] Administration Aspirin 81 mg 10/15/16 10:00 10/18/16 09:59 Asa - PO 81 mg DAILY [facility] Administration Budesonide/Formoterol Fumarate 2 puff 10/14/16 22:00 10/18/16 10:05 Symbicort 160/4.5mcg - IH 2 puff BID [facility] Administration Buspirone HCl 5 mg 10/14/16 22:00 10/18/16 09:59 Buspar - PO Not Given BID [facility] Diltiazem HCl 120 mg 10/15/16 10:00 10/18/16 10:00 Cardizem Cd - PO 120 mg DAILY [facility] Administration Docusate Sodium 100 mg 10/14/16 21:18 Colace - PO Q8H PRN CONSTIPATION Fentanyl 1 patch 10/14/16 21:30 10/17/16 22:20 Duragesic 75mcg Patch - TD 1 patch Q72H [facility] Administration Ferrous Sulfate 325 mg 10/15/16 10:00 10/18/16 10:01 Feosol - PO 325 mg DAILY [facility] Administration Furosemide 60 mg 10/18/16 18:00 Lasix - PO 10/18/16 18:01 ONCE ONE Furosemide 80 mg 10/19/16 10:00 Lasix - PO DAILY [facility] Gemfibrozil 600 mg 10/15/16 07:00 10/18/16 06:42 Lopid - PO 600 mg BID@0700,1630 [facility] Administration Heparin Sodium (Porcine) 5,000 unit 10/14/16 22:00 10/18/16 10:01 Heparin - SQ 5,000 unit BID [facility] Administration Hydromorphone HCl 2 mg 10/16/16 08:12 10/17/16 22:30 Dilaudid Injection - IVPB 2 mg HS PRN Administration PAIN Insulin Aspart 1 vial 10/14/16 22:00 10/18/16 11:22 Novolog Vial Sliding Scale - SQ Not Given ACHS [facility] Protocol Insulin Aspart 35 units 10/15/16 07:00 10/18/16 07:07 Novolog Mix 70/30 Vial SQ 35 units BIDAC [facility] Administration Lactulose 20 gm 10/14/16 22:00 10/18/16 10:00 Cephulac (Oral Use) PO 20 gm BID [facility] Administration Losartan Potassium 25 mg 10/15/16 10:00 10/18/16 10:00 Cozaar - PO 25 mg DAILY [facility] Administration Miscellaneous 1 each 10/14/16 21:18 10/14/16 22:18 Duragesic Patch Waste MC 1 each PRN PRN Administration PAIN Prednisone 40 mg 10/16/16 10:00 10/18/16 10:00 Deltasone - PO 40 mg DAILY [facility] Administration Roflumilast 500 mcg 10/15/16 10:00 10/18/16 10:00 Daliresp - PO 500 mcg DAILY [facility] Administration Senna 1 tab 10/14/16 22:00 10/17/16 22:18 Senna - PO 1 tab HS [facility] Administration Sitagliptin Phosphate 25 mg 10/15/16 07:00 10/18/16 06:42 Januvia - PO 25 mg DAILY@0700 [facility] Administration Sodium Chloride 2 spray 10/14/16 21:18 [place] Nasal [place] - NS TID PRN NASAL CONGESTION Tamsulosin HCl 0.4 mg 10/15/16 08:30 10/18/16 09:59 Flomax - PO 0.4 mg DAILY@0830 [facility] Administration Terazosin HCl 5 mg 10/14/16 22:00 10/17/16 22:20 Hytrin - PO 5 mg HS [facility] Administration Tiotropium [place] 1 puff 10/16/16 10:00 10/18/16 11:22 Spiriva - IH 1 puff DAILY [facility] Administration Impression 1. CKD 2. DM 3. HTN 4. CHF 5. COPD 6. fluid overload 7. BPH 8. insomnia 9. narcotic dependence Plan - cont with lasix - will give small dose of potassium - repeat labs in am - pt has chronic lower extremity edema, his legs do improve when he elevates them - cont current meds - will monitor renal function - his baseline creatinine is about 1.7 from last outpt visit - will follow Dr Nathan
--- NOTE | 2016-10-18 15:02 | PN ---
Progress Note, Physician History of Present Illness: Dyspnea and LE edema improved. - Current Medication List Current Medications: Active Medications Acetaminophen (Tylenol -) 650 mg PO Q6H PRN PRN Reason: FEVER OR PAIN Albuterol/Ipratropium (Duoneb -) 1 amp NEB Q6H PRN PRN Reason: SHORTNESS OF BREATH Last Admin: 10/18/16 10:30 Dose: 1 amp Allopurinol (Zyloprim -) 100 mg PO DAILY [facility] Last Admin: 10/18/16 10:01 Dose: 100 mg Aspirin (Asa -) 81 mg PO DAILY [facility] Last Admin: 10/18/16 09:59 Dose: 81 mg Budesonide/Formoterol Fumarate (Symbicort 160/4.5mcg -) 2 puff IH BID [facility] Last Admin: 10/18/16 10:05 Dose: 2 puff Buspirone HCl (Buspar -) 5 mg PO BID [facility] Last Admin: 10/18/16 09:59 Dose: Not Given Diltiazem HCl (Cardizem Cd -) 120 mg PO DAILY [facility] Last Admin: 10/18/16 10:00 Dose: 120 mg Docusate Sodium (Colace -) 100 mg PO Q8H PRN PRN Reason: CONSTIPATION Fentanyl (Duragesic 75mcg Patch -) 1 patch TD Q72H [facility] Last Admin: 10/17/16 22:20 Dose: 1 patch Ferrous Sulfate (Feosol -) 325 mg PO DAILY [facility] Last Admin: 10/18/16 10:01 Dose: 325 mg Furosemide (Lasix -) 60 mg PO ONCE ONE Stop: 10/18/16 18:01 Furosemide (Lasix -) 80 mg PO DAILY [facility] Gemfibrozil (Lopid -) 600 mg PO BID@0700,1630 [facility] Last Admin: 10/18/16 06:42 Dose: 600 mg Heparin Sodium (Porcine) (Heparin -) 5,000 unit SQ BID [facility] Last Admin: 10/18/16 10:01 Dose: 5,000 unit Hydromorphone HCl (Dilaudid Injection -) 2 mg IVPB HS PRN PRN Reason: PAIN Last Admin: 10/17/16 22:30 Dose: 2 mg Insulin Aspart (Novolog Vial Sliding Scale -) 1 vial SQ ACHS [facility] PRN Reason: Protocol Last Admin: 10/18/16 11:22 Dose: Not Given Insulin Aspart (Novolog Mix 70/30 Vial) 35 units SQ BIDAC [facility] Last Admin: 10/18/16 07:07 Dose: 35 units Lactulose (Cephulac (Oral Use)) 20 gm PO BID [facility] Last Admin: 10/18/16 10:00 Dose: 20 gm Losartan Potassium (Cozaar -) 25 mg PO DAILY [facility] Last Admin: 10/18/16 10:00 Dose: 25 mg Miscellaneous (Duragesic Patch Waste) 1 each MC PRN PRN PRN Reason: PAIN Last Admin: 10/14/16 22:18 Dose: 1 each Prednisone (Deltasone -) 40 mg PO DAILY [facility] Last Admin: 10/18/16 10:00 Dose: 40 mg Roflumilast (Daliresp -) 500 mcg PO DAILY [facility] Last Admin: 10/18/16 10:00 Dose: 500 mcg Senna (Senna -) [address] [facility] Last Admin: 10/17/16 22:18 Dose: 1 tab Sitagliptin Phosphate (Januvia -) 25 mg PO DAILY@0700 [facility] Last Admin: 10/18/16 06:42 Dose: 25 mg Sodium Chloride ([place] Nasal [place] -) 2 spray NS TID PRN PRN Reason: NASAL CONGESTION Tamsulosin HCl (Flomax -) 0.4 mg PO DAILY@0830 [facility] Last Admin: 10/18/16 09:59 Dose: 0.4 mg Terazosin HCl (Hytrin -) 5 mg PO HS [facility] Last Admin: 10/17/16 22:20 Dose: 5 mg Tiotropium [place] (Spiriva -) 1 puff IH DAILY [facility] Last Admin: 10/18/16 11:22 Dose: 1 puff - Objective Vital Signs: Vital Signs Temperature 98.4 F 10/18/16 10:00 Pulse Rate 90 10/18/16 12:24 Respiratory Rate 18 10/18/16 10:00 Blood Pressure 136/82 10/18/16 10:00 O2 Sat by Pulse Oximetry (%) 96 10/18/16 12:24 Constitutional: Yes: No Distress, Calm Neck: Yes: Supple Cardiovascular: Yes: Regular Rate and Rhythm Respiratory: Yes: Regular, Cough, Diminished, On Nasal O2 Gastrointestinal: Yes: Normal Bowel Sounds, Soft, Abdomen, Obese Edema: Yes Edema: LLE: 1+, RLE: 1+ Labs: CBC, BMP 10/18/16 06:30 10/18/16 06:30 INR, PTT INR 1.00 (0.82-1.09) 10/14/16 17:19 Problem List - Problems (1) Acute on chronic diastolic (congestive) heart failure Code(s): I50.33 - ACUTE ON CHRONIC DIASTOLIC (CONGESTIVE) HEART FAILURE (2) HTN (hypertension) Code(s): I10 - ESSENTIAL (PRIMARY) HYPERTENSION Qualifiers: Hypertension type: essential hypertension Qualified Code(s): I10 - Essential (primary) hypertension (3) Hypertriglyceridemia Code(s): E78.1 - PURE HYPERGLYCERIDEMIA (4) Leg edema Code(s): R60.0 - LOCALIZED EDEMA Qualifiers: Laterality: bilateral Qualified Code(s): R60.0 - Localized edema (5) Shortness of breath Code(s): R06.02 - SHORTNESS OF BREATH (6) CKD (chronic kidney disease) Code(s): N18.9 - CHRONIC KIDNEY DISEASE, UNSPECIFIED Qualifiers: Chronic kidney disease stage: unspecified stage Qualified Code(s): N18.9 - Chronic kidney disease, unspecified (7) COPD (chronic obstructive pulmonary disease) Code(s): J44.9 - CHRONIC OBSTRUCTIVE PULMONARY DISEASE, UNSPECIFIED Qualifiers : COPD type: chronic bronchitis (8) Diabetes mellitus Code(s): E11.9 - TYPE 2 DIABETES MELLITUS WITHOUT COMPLICATIONS Qualifiers: Diabetes mellitus type: type 2 Diabetes mellitus complication status: without complication Diabetes 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 Acute on Chronic LV Diastolic Heart Failure resolving 2. COPD with Chronic Hypoxic Respiratory Failure 3. Insulin-dependent Type 2 diabetes mellitus 4. Hypercholesterolemia 5. Anemia 6. CKD 7. HTN PLAN: 1. Lasix 80 qd with monitoring diuretic response, renal function and electrolytes 2. Continue ASA 81 mg QD, Lopid 600 mg BID, Cardizem CD 120 mg QD, Cozaar 25 mg QD and Hytrin 5 mg QHS 3. Bronchodilator, O2 to keep SpO2 >90%, oral steroid taper, Daliresp and completed antibiotic coverage, compression therapy 4. DVT prophylaxis, mobilize, d/c planning
[2016-10-18] MEDS ORDERED: FUROSEMIDE 20 MG TABLET (FP) PO ONE (18:00)
[2016-10-18] MEDS: TERAZOSIN HCL 5 MG CAPSULE PO SCH (21:22)
[2016-10-18] MEDS: SENNOSIDES 8.6MG TABLET (FP) PO SCH (21:22)
[2016-10-18] MEDS: HYDROmorphone HCL CARPU-JECT 1 MG/1 ML DISP.SYRIN IVPB PRN (21:41)
[2016-10-19] MEDS ORDERED: oxyCODONE HCL 5 MG TABLET ONE (03:53)
[2016-10-19] MEDS: oxyCODONE HCL 5 MG TABLET PO PRN (04:00)
[2016-10-19] MEDS: ALBUTEROL SO4 2.5/IPRATROPIUM 0.5 INH SOL 3 ML VIAL.NEB. NEB PRN (05:25)
[2016-10-19] MEDS: sitaGLIPtin PHOSPHATE 25 MG TABLET (FP) PO SCH (06:11)
[2016-10-19] MEDS: GEMFIBROZIL 600 MG TABLET (FP) PO SCH ×2 (06:11→17:12)
[2016-10-19] MEDS: INSULIN (NOVOLOG MIX 70/30) 100 UNITS/ML MDV SQ SCH ×2 (06:12→17:12)
[2016-10-19] MEDS: INSULIN SLIDING SCALE (NOVOLOG) 1 VIAL SQ SCH ×4 (06:13→21:13)
[2016-10-19] MEDS ORDERED: DEXTROSE 50%-WATER 50 ML DISP.SYRIN ONE (09:26)
[2016-10-19] MEDS ORDERED: DEXTROSE 50%-WATER 50 ML DISP.SYRIN IVPUSH ONE (09:30)
[2016-10-19] MEDS ORDERED: PT OWN MED DRAWER 7, Y5N ONE ×2 (10:14→21:04)
--- NOTE | 2016-10-19 10:26 | DS ---
Physical Examination Vital Signs: Vital Signs Temperature 98.4 F 10/19/16 06:28 Pulse Rate 90 10/19/16 06:28 Respiratory Rate 18 10/19/16 06:28 Blood Pressure 117/76 10/19/16 06:28 O2 Sat by Pulse Oximetry (%) 96 10/18/16 22:00 Cardiovascular: Yes: Regular Rate and Rhythm Respiratory: Yes: Regular, Rhonchi Gastrointestinal: Yes: Normal Bowel Sounds, Soft Labs: CBC, BMP 10/18/16 06:30 10/18/16 06:30 Discharge Summary Reason For Visit: COPD/PNEUMONIA Current Active Problems Acute on chronic diastolic (congestive) heart failure (Acute) Atelectasis (Acute) Bigeminy (Acute) COPD exacerbation (Acute) Chronic back pain greater than 3 months duration (Acute) Chronic respiratory failure with hypoxia (Acute) Cough (Acute) Diabetes mellitus, insulin dependent (IDDM), uncontrolled (Acute) HTN (hypertension) (Acute) Hyperlipidemia LDL goal < 100 (Acute) Hypertriglyceridemia (Acute) Leg edema (Acute) Shortness of breath (Acute) Tachycardia (Acute) Wheeze (Acute) Hospital Course: The patient is a 71 year old male with a significant past medical history of CHF , CKD, HTN, HL, DM, COPD, back pain, bph, anemia, pancreatitis, who presents to the emergency department today for further evaluation of cough since 09/28/16. The patient was recently admitted and treated for COPD and pneumonia. The patient reported that at home he is on 2L of O2 at home. 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: Yes: Migraine Cardiovascular: Yes: CHF, HTN, Hyperlipdemia Pulmonary: Yes: COPD, O2 Dependent Gastrointestinal: Yes: GERD Renal/: Yes: Renal Inusuff, BPH, Cancer, Hematuria, UTI, Other (CKD) Heme/Onc: Yes: Anemia Psych: Yes: Anxiety Musculoskeletal: Yes: Chronic low back pain, Osteoarthritis Endocrine: Yes: Diabetes Mellitus - Past Surgical History Past Surgical History: Yes: Colonoscopy (Done last December (2013) negative for significant pathology) Problems (1) Leg edema Assessment/Plan: renal increase iv lasix --TO PO 80 QD monitor lytes Code(s): R60.0 - LOCALIZED EDEMA Qualifiers: Laterality: bilateral Qualified Code(s): R60.0 - Localized edema (2) COPD exacerbation Assessment/Plan: pulm steroids symbicort daliresp spiriva patient doesn't want turdoza oxygen [place] Code(s): J44.1 - CHRONIC OBSTRUCTIVE PULMONARY DISEASE W (ACUTE) EXACERBATION (3) HTN (hypertension) Assessment/Plan: cozaar cardizem Code(s): I10 - ESSENTIAL (PRIMARY) HYPERTENSION Qualifiers: Hypertension type: essential hypertension Qualified Code(s): I10 - Essential (primary) hypertension (4) Hypertriglyceridemia Assessment/Plan: lopid Code(s): E78.1 - PURE HYPERGLYCERIDEMIA (5) BPH (benign prostatic hyperplasia) Assessment/Plan: hytrin and flomax Code(s): N40.0 - BENIGN PROSTATIC HYPERPLASIA WITHOUT LOWER URINRY TRACT SYMP (6) Chronic back pain greater than 3 months duration Assessment/Plan: fentanyl and oxycodone Code(s): M54.9 - DORSALGIA, UNSPECIFIED G89.29 - OTHER CHRONIC PAIN (7) DM Assessment/Plan: LOW BS THIS AM --MONITOR IF STABLE THEN DC HOME Condition: Improved - Instructions Referrals: Misti Crenshaw MD [Primary Care Provider] - Disposition: HOME - Home Medications Comprehensive Discharge Medication List: Ambulatory Orders Aspirin [ASA -] 81 mg PO Q2D@1000 #30 tab.chew 12/27/14 Gemfibrozil [Lopid -] 600 mg PO BID #180 tablet 12/27/14 Terazosin HCl [Hytrin -] 5 mg PO HS #30 capsule 12/27/14 Cyanocobalamin [Vitamin B12 -] 1 g PO DAILY 12/19/15 Lactulose 10 gm PO DAILY 12/20/15 Iron 325 mg PO BID 02/22/16 Tamsulosin HCl [Flomax -] 0.4 mg PO BID 02/22/16 FENTANYL 75mcg PATCH [DURAGESIC 75mcg PATCH -] 1 patch TD Q72H 02/23/16 Albuterol Sulfate Inhaler - [Ventolin HFA Inhaler -] 1 - 2 inh PO Q4H #1 inhaler 03/11/16 Docusate Sodium [Colace -] 100 mg PO BID #60 capsule 03/11/16 Diltiazem Cd [Cardizem Cd -] 120 mg PO DAILY 05/05/16 Naloxegol Oxalate [Movantik] 25 mg PO DAILY PRN 05/05/16 Sitagliptin Phosphate [Januvia] 25 mg PO DAILY 05/05/16 Zolpidem Tartrate [Ambien] 10 mg PO HS PRN 05/05/16 Metoclopramide HCl [Reglan -] 5 mg PO TIDAC tablet 05/09/16 Sennosides [Senna -] 2 tab PO HS PRN #0 tablet 05/09/16 Oxycodone HCl/Acetaminophen [Percocet 10-325 mg Tablet] 1 each PO TID PRN #60 tablet MDD 3 05/10/16 Allopurinol [Zyloprim -] 100 mg PO DAILY 09/28/16 Ranitidine HCl 300 mg PO DAILY 09/28/16 Sennosides [Senokot] 8.6 mg PO DAILY 09/28/16 Acetaminophen [Tylenol .Regular Strength -] 650 mg PO Q6H PRN #0 tablet Budesonide/Formeterol Fumarate [SYMBICORT 160/4.5mcg -] 2 puff IH BID #1 inhaler 10/07/16 Buspirone HCl [Buspar -] 10 mg PO BID #60 tablet 10/07/16 Diazepam [Valium] 2 mg PO HS PRN #5 tablet MDD 1 10/07/16 Guaifenesin AC [Robitussin AC -] 10 ml PO Q8H PRN #1 bottle MDD 30ml 10/07/16 Insulin Aspart Prot/Insuln Asp [Novolog Mix 70-30 Flexpen Syrn] 32 unit SQ BID # 1 box 10/07/16 Losartan Potassium [Cozaar -] 25 mg PO DAILY #30 tablet 10/07/16 Roflumilast [Daliresp -] 500 mcg PO DAILY #30 tablet 10/07/16 Sodium Chloride Nasal [place] [[place] Nasal [place] -] 2 spray NS BID PRN #1 bottle 10/07/16 Tiotropium [place] [Spiriva] 1 puff IH DAILY #1 inh 10/07/16 Furosemide [Lasix -] 80 mg PO DAILY #60 tablet 10/19/16 Prednisone 20 mg PO BID #100 tablet 10/19/16
[2016-10-19] MEDS: LACTULOSE 20 GM/30 ML UDC (FOR ORAL USE ONLY) PO SCH ×2 (10:28→21:14)
[2016-10-19] MEDS: FERROUS SO4 325 MG TABLET (FP) PO SCH (10:29)
[2016-10-19] MEDS: ASPIRIN 81 MG CHEWABLE TABLETS PO SCH (10:29)
[2016-10-19] MEDS: TAMSULOSIN HCL 0.4 MG CAP.ER.24H (FP) PO SCH (10:29)
[2016-10-19] MEDS: FUROSEMIDE 40 MG TABLET (FP) PO SCH (10:29)
[2016-10-19] MEDS: predniSONE 20 MG TABLET (UD) PO SCH (10:29)
[2016-10-19] MEDS: ALLOPURINOL 100 MG TABLET (FP) PO SCH (10:29)
[2016-10-19] MEDS: LOSARTAN POTASSIUM 25 MG TABLET PO SCH (10:29)
[2016-10-19] MEDS: HEPARIN NA (PORCINE) 5,000 UNITS/ML 1ML VIAL SQ SCH ×2 (10:30→21:14)
[2016-10-19] MEDS: ROFLUMILAST 500 MCG TABLET PO SCH (10:30)
[2016-10-19] MEDS: TIOTROPIUM BROMIDE 18 MCG/INH (DEVICE W/ 5 CAPSULES) IH SCH (10:30)
[2016-10-19] MEDS: BUDESONIDE/FORMETEROL FUMARATE 160/4.5 mcg INHALER IH SCH ×2 (10:30→21:15)
[2016-10-19] MEDS: busPIRone HCL 5 MG TABLET PO SCH ×2 (10:31→21:19)
--- NOTE | 2016-10-19 11:29 | PN ---
Progress Note, Physician History of Present Illness: Pt seen and examined at bedside. He is awake and alert. He denies shortness of breath. - Current Medication List Current Medications: Active Medications Acetaminophen (Tylenol -) 650 mg PO Q6H PRN PRN Reason: FEVER OR PAIN Albuterol/Ipratropium (Duoneb -) 1 amp NEB Q6H PRN PRN Reason: SHORTNESS OF BREATH Last Admin: 10/19/16 05:25 Dose: 1 amp Allopurinol (Zyloprim -) 100 mg PO DAILY [facility] Last Admin: 10/19/16 10:29 Dose: 100 mg Aspirin (Asa -) 81 mg PO DAILY [facility] Last Admin: 10/19/16 10:29 Dose: 81 mg Budesonide/Formoterol Fumarate (Symbicort 160/4.5mcg -) 2 puff IH BID [facility] Last Admin: 10/19/16 10:30 Dose: 2 puff Buspirone HCl (Buspar -) 5 mg PO BID [facility] Last Admin: 10/19/16 10:31 Dose: Not Given Diltiazem HCl (Cardizem Cd -) 120 mg PO DAILY [facility] Last Admin: 10/19/16 10:33 Dose: 120 mg Docusate Sodium (Colace -) 100 mg PO Q8H PRN PRN Reason: CONSTIPATION Fentanyl (Duragesic 75mcg Patch -) 1 patch TD Q72H [facility] Last Admin: 10/17/16 22:20 Dose: 1 patch Ferrous Sulfate (Feosol -) 325 mg PO DAILY [facility] Last Admin: 10/19/16 10:29 Dose: 325 mg Furosemide (Lasix -) 80 mg PO DAILY [facility] Last Admin: 10/19/16 10:29 Dose: 80 mg Gemfibrozil (Lopid -) 600 mg PO BID@0700,1630 [facility] Last Admin: 10/19/16 06:11 Dose: 600 mg Heparin Sodium (Porcine) (Heparin -) 5,000 unit SQ BID [facility] Last Admin: 10/19/16 10:30 Dose: 5,000 unit Insulin Aspart (Novolog Vial Sliding Scale -) 1 vial SQ ACHS [facility] PRN Reason: Protocol Last Admin: 10/19/16 10:52 Dose: Not Given Insulin Aspart (Novolog Mix 70/30 Vial) 35 units SQ BIDAC [facility] Last Admin: 10/19/16 06:12 Dose: 35 units Lactulose (Cephulac (Oral Use)) 20 gm PO BID [facility] Last Admin: 10/19/16 10:28 Dose: 20 gm Losartan Potassium (Cozaar -) 25 mg PO DAILY [facility] Last Admin: 10/19/16 10:29 Dose: 25 mg Miscellaneous (Duragesic Patch Waste) 1 each MC PRN PRN PRN Reason: PAIN Last Admin: 10/14/16 22:18 Dose: 1 each Oxycodone HCl (Roxicodone -) 10 mg PO Q6H PRN Last Admin: 10/19/16 04:00 Dose: 10 mg Prednisone (Deltasone -) 40 mg PO DAILY [facility] Last Admin: 10/19/16 10:29 Dose: 40 mg Roflumilast (Daliresp -) 500 mcg PO DAILY [facility] Last Admin: 10/19/16 10:30 Dose: 500 mcg Senna (Senna -) 1 tab PO [facility] Last Admin: 10/18/16 21:22 Dose: 1 tab Sitagliptin Phosphate (Januvia -) 25 mg PO DAILY@0700 [facility] Last Admin: 10/19/16 06:11 Dose: 25 mg Sodium Chloride ([place] Nasal [place] -) 2 spray NS TID PRN PRN Reason: NASAL CONGESTION Tamsulosin HCl (Flomax -) 0.4 mg PO DAILY@0830 [facility] Last Admin: 10/19/16 10:29 Dose: 0.4 mg Terazosin HCl (Hytrin -) 5 mg PO HS [facility] Last Admin: 10/18/16 21:22 Dose: 5 mg Tiotropium [place] (Spiriva -) 1 puff IH DAILY [facility] Last Admin: 10/19/16 10:30 Dose: 1 puff - Objective Vital Signs: Vital Signs Temperature 98.4 F 10/19/16 06:28 Pulse Rate 90 10/19/16 06:28 Respiratory Rate 18 10/19/16 06:28 Blood Pressure 117/76 10/19/16 06:28 O2 Sat by Pulse Oximetry (%) 96 10/18/16 22:00 Constitutional: Yes: Calm HENT: Yes: Atraumatic Neck: Yes: Supple Cardiovascular: Yes: S1, S2 Respiratory: Yes: Wheezes Gastrointestinal: Yes: Soft, Abdomen, Obese Genitourinary: Yes: WNL Musculoskeletal: Yes: WNL Edema: Yes Edema: LLE: 1+, RLE: 1+ Neurological: Yes: Oriented Psychiatric: Yes: Oriented Labs: CBC, BMP 10/18/16 06:30 10/18/16 06:30 INR, PTT INR 1.00 (0.82-1.09) 10/14/16 17:19 Problem List - Problems (1) COPD exacerbation Code(s): J44.1 - CHRONIC OBSTRUCTIVE PULMONARY DISEASE W (ACUTE) EXACERBATION (2) Chronic respiratory failure with hypoxia Code(s): J96.11 - CHRONIC RESPIRATORY FAILURE WITH HYPOXIA (3) Diabetes mellitus, insulin dependent (IDDM), uncontrolled Code(s): E10.65 - TYPE 1 DIABETES MELLITUS WITH HYPERGLYCEMIA Qualifiers: Diabetes mellitus complication status: without complication Qualified Code(s): E10.9 - Type 1 diabetes mellitus without complications (4) HTN (hypertension) Code(s): I10 - ESSENTIAL (PRIMARY) HYPERTENSION Qualifiers: Hypertension type: essential hypertension Qualified Code(s): I10 - Essential (primary) hypertension (5) Shortness of breath Code(s): R06.02 - SHORTNESS OF BREATH (6) Anemia Code(s): D64.9 - ANEMIA, UNSPECIFIED Qualifiers: Anemia type: unspecified type Qualified Code(s): D64.9 - Anemia, unspecified (7) CHF (congestive heart failure) Code(s): I50.9 - HEART FAILURE, UNSPECIFIED Qualifiers: Congestive heart failure type: diastolic (8) CKD (chronic kidney disease) Code(s): N18.9 - CHRONIC KIDNEY DISEASE, UNSPECIFIED Qualifiers: Chronic kidney disease stage: unspecified stage Qualified Code(s): N18.9 - Chronic kidney disease, unspecified (9) COPD (chronic obstructive pulmonary disease) Code(s): J44.9 - CHRONIC OBSTRUCTIVE PULMONARY DISEASE, UNSPECIFIED Qualifiers : COPD type: chronic bronchitis (10) GERD (gastroesophageal reflux disease) Code(s): K21.9 - GASTRO-ESOPHAGEAL REFLUX DISEASE WITHOUT ESOPHAGITIS Assessment/Plan Current Medications Generic Name Dose Route Start Last Admin Trade Name Freq PRN Reason Stop Dose Admin Acetaminophen 650 mg 10/14/16 21:18 Tylenol - PO Q6H PRN FEVER OR PAIN Albuterol/Ipratropium 1 amp 10/14/16 21:18 10/19/16 05:25 Duoneb - NEB 1 amp Q6H PRN Administration SHORTNESS OF BREATH Allopurinol 100 mg 10/15/16 10:00 10/19/16 10:29 Zyloprim - PO 100 mg DAILY JOSE LUIS Administration Aspirin 81 mg 10/15/16 10:00 10/19/16 10:29 Asa - PO 81 mg DAILY JOSE LUIS Administration Budesonide/Formoterol Fumarate 2 puff 10/14/16 22:00 10/19/16 10:30 Symbicort 160/4.5mcg - IH 2 puff BID JOSE LUIS Administration Buspirone HCl 5 mg 10/14/16 22:00 10/19/16 10:31 Buspar - PO Not Given BID JOSE LUIS Diltiazem HCl 120 mg 10/15/16 10:00 10/19/16 10:33 Cardizem Cd - PO 120 mg DAILY JOSE LUIS Administration Docusate Sodium 100 mg 10/14/16 21:18 Colace - PO Q8H PRN CONSTIPATION Fentanyl 1 patch 10/14/16 21:30 10/17/16 22:20 Duragesic 75mcg Patch - TD 1 patch Q72H JOSE LUIS Administration Ferrous Sulfate 325 mg 10/15/16 10:00 10/19/16 10:29 Feosol - PO 325 mg DAILY JOSE LUIS Administration Furosemide 80 mg 10/19/16 10:00 10/19/16 10:29 Lasix - PO 80 mg DAILY JOSE LUIS Administration Gemfibrozil 600 mg 10/15/16 07:00 10/19/16 06:11 Lopid - PO 600 mg BID@0700,1630 JOSE LUIS Administration Heparin Sodium (Porcine) 5,000 unit 10/14/16 22:00 10/19/16 10:30 Heparin - SQ 5,000 unit BID JOSE LUIS Administration Insulin Aspart 1 vial 10/14/16 22:00 10/19/16 10:52 Novolog Vial Sliding Scale - SQ Not Given ACHS [facility] Protocol Insulin Aspart 35 units 10/15/16 07:00 10/19/16 06:12 Novolog Mix 70/30 Vial SQ 35 units BIDAC JOSE LUIS Administration Lactulose 20 gm 10/14/16 22:00 10/19/16 10:28 Cephulac (Oral Use) PO 20 gm BID JOSE LUIS Administration Losartan Potassium 25 mg 10/15/16 10:00 10/19/16 10:29 Cozaar - PO 25 mg DAILY JOSE LUIS Administration Miscellaneous 1 each 10/14/16 21:18 10/14/16 22:18 Duragesic Patch Waste MC 1 each PRN PRN Administration PAIN Oxycodone HCl 10 mg 10/19/16 03:55 10/19/16 04:00 Roxicodone - PO 10 mg Q6H PRN Administration Prednisone 40 mg 10/16/16 10:00 10/19/16 10:29 Deltasone - PO 40 mg DAILY JOSE LUIS Administration Roflumilast 500 mcg 10/15/16 10:00 10/19/16 10:30 Daliresp - PO 500 mcg DAILY JOSE LUIS Administration Senna 1 tab 10/14/16 22:00 10/18/16 21:22 Senna - PO 1 tab HS JOSE LUIS Administration Sitagliptin Phosphate 25 mg 10/15/16 07:00 10/19/16 06:11 Januvia - PO 25 mg DAILY@0700 JOSE LUIS Administration Sodium Chloride 2 spray 10/14/16 21:18 [place] Nasal [place] - NS TID PRN NASAL CONGESTION Tamsulosin HCl 0.4 mg 10/15/16 08:30 10/19/16 10:29 Flomax - PO 0.4 mg DAILY@0830 JOSE LUIS Administration Terazosin HCl 5 mg 10/14/16 22:00 10/18/16 21:22 Hytrin - PO 5 mg HS JOSE LUIS Administration Tiotropium [place] 1 puff 10/16/16 10:00 10/19/16 10:30 Spiriva - IH 1 puff DAILY JOSE LUIS Administration Impression 1. CKD 2. DM 3. HTN 4. CHF 5. COPD 6. fluid overload 7. BPH 8. insomnia 9. narcotic dependence Plan - renal function stable - outp follow up, pt will see Dr Nelson - cont with lasix - monitor blood sugar - pt has chronic lower extremity edema, his legs do improve when he elevates them - cont current meds - his baseline creatinine is about 1.7 from last outpt visit - will follow Dr Nathan
--- NOTE | 2016-10-19 12:21 | PN ---
Progress Note, Physician History of Present Illness: pulmonary alert,less congested,+episode of hypogycemia earlier. - Current Medication List Current Medications: Active Medications Acetaminophen (Tylenol -) 650 mg PO Q6H PRN PRN Reason: FEVER OR PAIN Albuterol/Ipratropium (Duoneb -) 1 amp NEB Q6H PRN PRN Reason: SHORTNESS OF BREATH Last Admin: 10/19/16 05:25 Dose: 1 amp Allopurinol (Zyloprim -) 100 mg PO DAILY [facility] Last Admin: 10/19/16 10:29 Dose: 100 mg Aspirin (Asa -) 81 mg PO DAILY [facility] Last Admin: 10/19/16 10:29 Dose: 81 mg Budesonide/Formoterol Fumarate (Symbicort 160/4.5mcg -) 2 puff IH BID [facility] Last Admin: 10/19/16 10:30 Dose: 2 puff Buspirone HCl (Buspar -) 5 mg PO BID [facility] Last Admin: 10/19/16 10:31 Dose: Not Given Diltiazem HCl (Cardizem Cd -) 120 mg PO DAILY [facility] Last Admin: 10/19/16 10:33 Dose: 120 mg Docusate Sodium (Colace -) 100 mg PO Q8H PRN PRN Reason: CONSTIPATION Fentanyl (Duragesic 75mcg Patch -) 1 patch TD Q72H [facility] Last Admin: 10/17/16 22:20 Dose: 1 patch Ferrous Sulfate (Feosol -) 325 mg PO DAILY [facility] Last Admin: 10/19/16 10:29 Dose: 325 mg Furosemide (Lasix -) 80 mg PO DAILY [facility] Last Admin: 10/19/16 10:29 Dose: 80 mg Gemfibrozil (Lopid -) 600 mg PO BID@0700,1630 [facility] Last Admin: 10/19/16 06:11 Dose: 600 mg Heparin Sodium (Porcine) (Heparin -) 5,000 unit SQ BID [facility] Last Admin: 10/19/16 10:30 Dose: 5,000 unit Insulin Aspart (Novolog Vial Sliding Scale -) 1 vial SQ ACHS [facility] PRN Reason: Protocol Last Admin: 10/19/16 10:52 Dose: Not Given Insulin Aspart (Novolog Mix 70/30 Vial) 35 units SQ BIDAC [facility] Last Admin: 10/19/16 06:12 Dose: 35 units Lactulose (Cephulac (Oral Use)) 20 gm PO BID [facility] Last Admin: 10/19/16 10:28 Dose: 20 gm Losartan Potassium (Cozaar -) 25 mg PO DAILY [facility] Last Admin: 10/19/16 10:29 Dose: 25 mg Miscellaneous (Duragesic Patch Waste) 1 each MC PRN PRN PRN Reason: PAIN Last Admin: 10/14/16 22:18 Dose: 1 each Oxycodone HCl (Roxicodone -) 10 mg PO Q6H PRN Last Admin: 10/19/16 04:00 Dose: 10 mg Prednisone (Deltasone -) 40 mg PO DAILY [facility] Last Admin: 10/19/16 10:29 Dose: 40 mg Roflumilast (Daliresp -) 500 mcg PO DAILY [facility] Last Admin: 10/19/16 10:30 Dose: 500 mcg Senna (Senna -) 1 tab PO [facility] Last Admin: 10/18/16 21:22 Dose: 1 tab Sitagliptin Phosphate (Januvia -) 25 mg PO DAILY@0700 [facility] Last Admin: 10/19/16 06:11 Dose: 25 mg Sodium Chloride ([place] Nasal [place] -) 2 spray NS TID PRN PRN Reason: NASAL CONGESTION Tamsulosin HCl (Flomax -) 0.4 mg PO DAILY@0830 [facility] Last Admin: 10/19/16 10:29 Dose: 0.4 mg Terazosin HCl (Hytrin -) 5 mg PO [facility] Last Admin: 10/18/16 21:22 Dose: 5 mg Tiotropium [place] (Spiriva -) 1 puff IH DAILY [facility] Last Admin: 10/19/16 10:30 Dose: 1 puff - Objective Vital Signs: Vital Signs Temperature 98.4 F 10/19/16 06:28 Pulse Rate 90 10/19/16 06:28 Respiratory Rate 18 10/19/16 06:28 Blood Pressure 117/76 10/19/16 06:28 O2 Sat by Pulse Oximetry (%) 96 10/18/16 22:00 Constitutional: Yes: Well Nourished, Calm Eyes: Yes: WNL HENT: Yes: WNL Neck: Yes: WNL Cardiovascular: Yes: Regular Rate and Rhythm, S1, S2 Respiratory: Yes: Rhonchi (bilateral rhonchi) Gastrointestinal: Yes: Normal Bowel Sounds, Soft Extremities: Yes: WNL Edema: Yes Assessment/Plan Problem List - Problems (1) Acute on chronic diastolic (congestive) heart failure Code(s): I50.33 - ACUTE ON CHRONIC DIASTOLIC (CONGESTIVE) HEART FAILURE (2) COPD (chronic obstructive pulmonary disease) Code(s): J44.9 - CHRONIC OBSTRUCTIVE PULMONARY DISEASE, UNSPECIFIED Qualifiers : COPD type: chronic bronchitis (3) Chronic respiratory failure with hypoxia Code(s): J96.11 - CHRONIC RESPIRATORY FAILURE WITH HYPOXIA (4) Atelectasis Code(s): J98.11 - ATELECTASIS (5) Diabetes mellitus, insulin dependent (IDDM), uncontrolled Code(s): E10.65 - TYPE 1 DIABETES MELLITUS WITH HYPERGLYCEMIA Qualifiers: Diabetes mellitus complication status: without complication Qualified Code(s): E10.9 - Type 1 diabetes mellitus without complications (6) HTN (hypertension) Code(s): I10 - ESSENTIAL (PRIMARY) HYPERTENSION Qualifiers: Hypertension type: essential hypertension Qualified Code(s): I10 - Essential (primary) hypertension Assessment/Plan Acute on Chronic LV Diastolic Heart Failure COPD Atelectasis Recent Pneumonia Chronic Hypoxic Respiratory Failure CKD HTN DM Hyperlipidemia - lasix - monitor urine output, creatinine - I/Os, daily weights - inhaled bronchodilators - O2 to keep SpO2 >90% - prednisone - incentive spirometry - PO as tolerated - DVT prophylaxis - chest pt - monitor blood sugars DR CEVALLOS
[2016-10-19] MEDS: ALBUTEROL SO4 0.083% IH SOL 2.5 MG/3 ML VIAL.NEB. NEB PRN ×2 (14:10→19:10)
--- NOTE | 2016-10-19 17:01 | PN ---
Progress Note, Physician History of Present Illness: Dyspnea and LE edema improved. - Current Medication List Current Medications: Active Medications Acetaminophen (Tylenol -) 650 mg PO Q6H PRN PRN Reason: FEVER OR PAIN Albuterol Sulfate (Ventolin 0.083% Nebulizer Soln -) 1 amp NEB Q4H PRN PRN Reason: SHORT OF BREATH/WHEEZING Last Admin: 10/19/16 14:10 Dose: 1 amp Allopurinol (Zyloprim -) 100 mg PO DAILY [facility] Last Admin: 10/19/16 10:29 Dose: 100 mg Aspirin (Asa -) 81 mg PO DAILY [facility] Last Admin: 10/19/16 10:29 Dose: 81 mg Budesonide/Formoterol Fumarate (Symbicort 160/4.5mcg -) 2 puff IH BID [facility] Last Admin: 10/19/16 10:30 Dose: 2 puff Buspirone HCl (Buspar -) 5 mg PO BID [facility] Last Admin: 10/19/16 10:31 Dose: Not Given Diltiazem HCl (Cardizem Cd -) 120 mg PO DAILY [facility] Last Admin: 10/19/16 10:33 Dose: 120 mg Docusate Sodium (Colace -) 100 mg PO Q8H PRN PRN Reason: CONSTIPATION Fentanyl (Duragesic 75mcg Patch -) 1 patch TD Q72H [facility] Last Admin: 10/17/16 22:20 Dose: 1 patch Ferrous Sulfate (Feosol -) 325 mg PO DAILY [facility] Last Admin: 10/19/16 10:29 Dose: 325 mg Furosemide (Lasix -) 80 mg PO DAILY [facility] Last Admin: 10/19/16 10:29 Dose: 80 mg Gemfibrozil (Lopid -) 600 mg PO BID@0700,1630 [facility] Last Admin: 10/19/16 06:11 Dose: 600 mg Heparin Sodium (Porcine) (Heparin -) 5,000 unit SQ BID [facility] Last Admin: 10/19/16 10:30 Dose: 5,000 unit Insulin Aspart (Novolog Vial Sliding Scale -) 1 vial SQ ACHS [facility] PRN Reason: Protocol Last Admin: 10/19/16 10:52 Dose: Not Given Insulin Aspart (Novolog Mix 70/30 Vial) 35 units SQ BIDAC [facility] Last Admin: 10/19/16 06:12 Dose: 35 units Lactulose (Cephulac (Oral Use)) 20 gm PO BID [facility] Last Admin: 10/19/16 10:28 Dose: 20 gm Losartan Potassium (Cozaar -) 25 mg PO DAILY [facility] Last Admin: 10/19/16 10:29 Dose: 25 mg Miscellaneous (Duragesic Patch Waste) 1 each [facility] PRN PRN PRN Reason: PAIN Last Admin: 10/14/16 22:18 Dose: 1 each Oxycodone HCl (Roxicodone -) 10 mg PO Q6H PRN Last Admin: 10/19/16 04:00 Dose: 10 mg Prednisone (Deltasone -) 40 mg PO DAILY [facility] Last Admin: 10/19/16 10:29 Dose: 40 mg Roflumilast (Daliresp -) 500 mcg PO DAILY [facility] Last Admin: 10/19/16 10:30 Dose: 500 mcg Senna (Senna -) 1 tab PO [facility] Last Admin: 10/18/16 21:22 Dose: 1 tab Sitagliptin Phosphate (Januvia -) 25 mg PO DAILY@0700 [facility] Last Admin: 10/19/16 06:11 Dose: 25 mg Sodium Chloride ([place] Nasal [place] -) 2 spray NS TID PRN PRN Reason: NASAL CONGESTION Tamsulosin HCl (Flomax -) 0.4 mg PO DAILY@0830 [facility] Last Admin: 10/19/16 10:29 Dose: 0.4 mg Terazosin HCl (Hytrin -) 5 mg PO HS [facility] Last Admin: 10/18/16 21:22 Dose: 5 mg Tiotropium [place] (Spiriva -) 1 puff IH DAILY [facility] Last Admin: 10/19/16 10:30 Dose: 1 puff - Objective Vital Signs: Vital Signs Temperature 98.4 F 10/19/16 09:00 Pulse Rate 89 10/19/16 11:30 Respiratory Rate 20 10/19/16 09:00 Blood Pressure 149/57 10/19/16 09:00 O2 Sat by Pulse Oximetry (%) 95 10/19/16 11:30 Constitutional: Yes: No Distress, Calm Neck: Yes: Supple Cardiovascular: Yes: Regular Rate and Rhythm Respiratory: Yes: Regular, Diminished, On Nasal O2, Wheezes Gastrointestinal: Yes: Normal Bowel Sounds, Soft, Abdomen, Obese Edema: Yes Edema: LLE: 1+, RLE: 1+ Labs: CBC, BMP 10/18/16 06:30 10/18/16 06:30 INR, PTT INR 1.00 (0.82-1.09) 10/14/16 17:19 Problem List - Problems (1) Acute on chronic diastolic (congestive) heart failure Code(s): I50.33 - ACUTE ON CHRONIC DIASTOLIC (CONGESTIVE) HEART FAILURE (2) HTN (hypertension) Code(s): I10 - ESSENTIAL (PRIMARY) HYPERTENSION Qualifiers: Hypertension type: essential hypertension Qualified Code(s): I10 - Essential (primary) hypertension (3) Hypertriglyceridemia Code(s): E78.1 - PURE HYPERGLYCERIDEMIA (4) Leg edema Code(s): R60.0 - LOCALIZED EDEMA Qualifiers: Laterality: bilateral Qualified Code(s): R60.0 - Localized edema (5) Shortness of breath Code(s): R06.02 - SHORTNESS OF BREATH (6) CKD (chronic kidney disease) Code(s): N18.9 - CHRONIC KIDNEY DISEASE, UNSPECIFIED Qualifiers: Chronic kidney disease stage: unspecified stage Qualified Code(s): N18.9 - Chronic kidney disease, unspecified (7) COPD (chronic obstructive pulmonary disease) Code(s): J44.9 - CHRONIC OBSTRUCTIVE PULMONARY DISEASE, UNSPECIFIED Qualifiers : COPD type: chronic bronchitis (8) Diabetes mellitus Code(s): E11.9 - TYPE 2 DIABETES MELLITUS WITHOUT COMPLICATIONS Qualifiers: Diabetes mellitus type: type 2 Diabetes mellitus complication status: without complication Diabetes mellitus terminal 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 Acute on Chronic LV Diastolic Heart Failure resolving 2. COPD with Chronic Hypoxic Respiratory Failure 3. Insulin-dependent Type 2 diabetes mellitus 4. Hypercholesterolemia 5. Anemia 6. CKD 7. HTN PLAN: 1. Lasix 80 qd with monitoring diuretic response, renal function and electrolytes, replete K 2. Continue ASA 81 mg QD, Lopid 600 mg BID, Cardizem CD 120 mg QD, Cozaar 25 mg QD and Hytrin 5 mg QHS 3. Bronchodilator, O2 to keep SpO2 >90%, oral steroid taper, Daliresp and completed antibiotic coverage, compression therapy 4. DVT prophylaxis, mobilize, d/c planning
[2016-10-19] MEDS ORDERED: POTASSIUM CHLORIDE TABS 20 MEQ TABLET.ER (FP) PO ONE (17:04)
[2016-10-19] MEDS ORDERED: INSULIN (NOVOLOG) ASPART 100 UNITS/ML 10ML VIAL ONE (21:06)
[2016-10-19] MEDS: SENNOSIDES 8.6MG TABLET (FP) PO SCH (21:14)
[2016-10-19] MEDS: TERAZOSIN HCL 5 MG CAPSULE PO SCH (21:14)
[2016-10-19] MEDS ORDERED: HYDROmorphone HCL CARPU-JECT 2 MG/1 ML DISP.SYRIN ONE (22:44)
[2016-10-19] MEDS ORDERED: HYDROmorphone HCL CARPU-JECT 2 MG/1 ML DISP.SYRIN IVPB ONE (23:00)
[2016-10-20] MEDS: ALBUTEROL SO4 0.083% IH SOL 2.5 MG/3 ML VIAL.NEB. NEB PRN ×6 (04:47→22:45)
[2016-10-20] MEDS: oxyCODONE HCL 5 MG TABLET PO PRN ×4 (05:36→23:08)
[2016-10-20] MEDS: sitaGLIPtin PHOSPHATE 25 MG TABLET (FP) PO SCH (06:46)
[2016-10-20] MEDS: GEMFIBROZIL 600 MG TABLET (FP) PO SCH ×2 (06:47→16:48)
[2016-10-20] MEDS: INSULIN SLIDING SCALE (NOVOLOG) 1 VIAL SQ SCH ×4 (07:37→21:51)
[2016-10-20] MEDS: TAMSULOSIN HCL 0.4 MG CAP.ER.24H (FP) PO SCH (08:46)
[2016-10-20] MEDS: INSULIN (NOVOLOG MIX 70/30) 100 UNITS/ML MDV SQ SCH ×2 (08:49→18:19)
[2016-10-20] MEDS ORDERED: PT OWN MED DRAWER 7, Y5N ONE ×2 (09:20→20:56)
[2016-10-20] MEDS: ASPIRIN 81 MG CHEWABLE TABLETS PO SCH (09:23)
[2016-10-20] MEDS: LOSARTAN POTASSIUM 25 MG TABLET PO SCH (09:23)
[2016-10-20] MEDS: LACTULOSE 20 GM/30 ML UDC (FOR ORAL USE ONLY) PO SCH ×2 (09:23→21:49)
[2016-10-20] MEDS: busPIRone HCL 5 MG TABLET PO SCH ×2 (09:23→21:49)
[2016-10-20] MEDS: predniSONE 20 MG TABLET (UD) PO SCH (09:24)
[2016-10-20] MEDS: ROFLUMILAST 500 MCG TABLET PO SCH (09:24)
[2016-10-20] MEDS: FERROUS SO4 325 MG TABLET (FP) PO SCH (09:24)
[2016-10-20] MEDS: FUROSEMIDE 40 MG TABLET (FP) PO SCH (09:24)
[2016-10-20] MEDS: TIOTROPIUM BROMIDE 18 MCG/INH (DEVICE W/ 5 CAPSULES) IH SCH (09:25)
[2016-10-20] MEDS: BUDESONIDE/FORMETEROL FUMARATE 160/4.5 mcg INHALER IH SCH ×2 (09:25→21:50)
[2016-10-20] MEDS: ALLOPURINOL 100 MG TABLET (FP) PO SCH (09:25)
[2016-10-20] MEDS: HEPARIN NA (PORCINE) 5,000 UNITS/ML 1ML VIAL SQ SCH ×2 (09:26→21:51)
--- NOTE | 2016-10-20 11:27 | PN ---
Progress Note, Physician Chief Complaint: C/O INSOMNIA FEELS BETTER - Current Medication List Current Medications: Active Medications Acetaminophen (Tylenol -) 650 mg PO Q6H PRN PRN Reason: FEVER OR PAIN Albuterol Sulfate (Ventolin 0.083% Nebulizer Soln -) 1 amp NEB Q4H PRN PRN Reason: SHORT OF BREATH/WHEEZING Last Admin: 10/20/16 07:32 Dose: 1 amp Allopurinol (Zyloprim -) 100 mg PO DAILY [facility] Last Admin: 10/20/16 09:25 Dose: 100 mg Aspirin (Asa -) 81 mg PO DAILY [facility] Last Admin: 10/20/16 09:23 Dose: 81 mg Budesonide/Formoterol Fumarate (Symbicort 160/4.5mcg -) 2 puff IH BID [facility] Last Admin: 10/20/16 09:25 Dose: 2 puff Buspirone HCl (Buspar -) 5 mg PO BID [facility] Last Admin: 10/20/16 09:23 Dose: 5 mg Diltiazem HCl (Cardizem Cd -) 120 mg PO DAILY [facility] Last Admin: 10/20/16 09:23 Dose: 120 mg Docusate Sodium (Colace -) 100 mg PO Q8H PRN PRN Reason: CONSTIPATION Fentanyl (Duragesic 75mcg Patch -) 1 patch TD Q72H [facility] Last Admin: 10/17/16 22:20 Dose: 1 patch Ferrous Sulfate (Feosol -) 325 mg PO DAILY [facility] Last Admin: 10/20/16 09:24 Dose: 325 mg Furosemide (Lasix -) 80 mg PO DAILY [facility] Last Admin: 10/20/16 09:24 Dose: 80 mg Gemfibrozil (Lopid -) 600 mg PO BID@0700,1630 [facility] Last Admin: 10/20/16 06:47 Dose: 600 mg Heparin Sodium (Porcine) (Heparin -) 5,000 unit SQ BID [facility] Last Admin: 10/20/16 09:26 Dose: 5,000 unit Insulin Aspart (Novolog Vial Sliding Scale -) 1 vial SQ ACHS [facility] PRN Reason: Protocol Last Admin: 10/20/16 07:37 Dose: Not Given Insulin Aspart (Novolog Mix 70/30 Vial) 35 units SQ BIDAC [facility] Last Admin: 10/20/16 08:49 Dose: 35 units Lactulose (Cephulac (Oral Use)) 20 gm PO BID [facility] Last Admin: 10/20/16 09:23 Dose: 20 gm Losartan Potassium (Cozaar -) 25 mg PO DAILY [facility] Last Admin: 10/20/16 09:23 Dose: 25 mg Miscellaneous (Duragesic Patch Waste) 1 each [facility] PRN PRN PRN Reason: PAIN Last Admin: 10/14/16 22:18 Dose: 1 each Oxycodone HCl (Roxicodone -) 10 mg PO Q6H PRN Last Admin: 10/20/16 05:36 Dose: 10 mg Prednisone (Deltasone -) 40 mg PO DAILY [facility] Last Admin: 10/20/16 09:24 Dose: 40 mg Roflumilast (Daliresp -) 500 mcg PO DAILY [facility] Last Admin: 10/20/16 09:24 Dose: 500 mcg Senna (Senna -) 1 tab PO [facility] Last Admin: 10/19/16 21:14 Dose: 1 tab Sitagliptin Phosphate (Januvia -) 25 mg PO DAILY@0700 [facility] Last Admin: 10/20/16 06:46 Dose: 25 mg Sodium Chloride ([place] Nasal [place] -) 2 spray NS TID PRN PRN Reason: NASAL CONGESTION Tamsulosin HCl (Flomax -) 0.4 mg PO DAILY@0830 [facility] Last Admin: 10/20/16 08:46 Dose: 0.4 mg Terazosin HCl (Hytrin -) 5 mg PO HS [facility] Last Admin: 10/19/16 21:14 Dose: 5 mg Tiotropium [place] (Spiriva -) 1 puff IH DAILY [facility] Last Admin: 10/19/16 10:30 Dose: 1 puff - Objective Vital Signs: Vital Signs Temperature 97.7 F 10/20/16 08:30 Pulse Rate 88 10/20/16 08:30 Respiratory Rate 18 10/20/16 08:30 Blood Pressure 130/75 10/20/16 08:30 O2 Sat by Pulse Oximetry (%) 96 10/20/16 10:00 Constitutional: Yes: Calm Cardiovascular: Yes: WNL Respiratory: Yes: Rhonchi Gastrointestinal: Yes: WNL Edema: Yes Labs: CBC, BMP 10/18/16 06:30 10/18/16 06:30 INR, PTT INR 1.00 (0.82-1.09) 10/14/16 17:19 Problem List - Problems (1) Chronic respiratory failure with hypoxia Code(s): J96.11 - CHRONIC RESPIRATORY FAILURE WITH HYPOXIA (2) Diabetes mellitus, insulin dependent (IDDM), uncontrolled Code(s): E10.65 - TYPE 1 DIABETES MELLITUS WITH HYPERGLYCEMIA Qualifiers: Diabetes mellitus complication status: without complication Qualified Code(s): E10.9 - Type 1 diabetes mellitus without complications (3) HTN (hypertension) Code(s): I10 - ESSENTIAL (PRIMARY) HYPERTENSION Qualifiers: Hypertension type: essential hypertension Qualified Code(s): I10 - Essential (primary) hypertension (4) Leg edema Code(s): R60.0 - LOCALIZED EDEMA Qualifiers: Laterality: bilateral Qualified Code(s): R60.0 - Localized edema (5) Wheeze Code(s): R06.2 - WHEEZING Assessment/Plan (1) Leg edema Assessment/Plan: renal increase iv lasix --TO PO 80 QD Code(s): R60.0 - LOCALIZED EDEMA Qualifiers: Laterality: bilateral Qualified Code(s): R60.0 - Localized edema (2) COPD exacerbation Assessment/Plan: pulm steroids symbicort daliresp spiriva patient doesn't want turdoza oxygen NC Code(s): J44.1 - CHRONIC OBSTRUCTIVE PULMONARY DISEASE W (ACUTE) EXACERBATION (3) HTN (hypertension) Assessment/Plan: cozaar cardimatthew Code(s): I10 - ESSENTIAL (PRIMARY) HYPERTENSION Qualifiers: Hypertension type: essential hypertension Qualified Code(s): I10 - Essential (primary) hypertension (4) Hypertriglyceridemia Assessment/Plan: lopid Code(s): E78.1 - PURE HYPERGLYCERIDEMIA (5) BPH (benign prostatic hyperplasia) Assessment/Plan: hytrin and flomax Code(s): N40.0 - BENIGN PROSTATIC HYPERPLASIA WITHOUT LOWER URINRY TRACT SYMP (6) Chronic back pain greater than 3 months duration Assessment/Plan: fentanyl and oxycodone Code(s): M54.9 - DORSALGIA, UNSPECIFIED G89.29 - OTHER CHRONIC PAIN (7) DM Assessment/Plan: LOW BS THIS AM --MONITOR IF STABLE THEN DC HOME -> NOW OK Condition: Improved 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
--- NOTE | 2016-10-20 13:11 | PN ---
Progress Note (short form) - Note Progress Note: PULMONARY SITTING IN CHAIR EATING LUNCH VSS ANICTERIC SCATTERED CRACKLES S1S2 OBESE 2-3+ EDEMA LOWER EXT LABS/MEDS/IMAGIMG/NOTES REVIEWED Acute on Chronic LV Diastolic Heart Failure COPD Atelectasis Recent Pneumonia Chronic Hypoxic Respiratory Failure CKD HTN DM Hyperlipidemia - lasix changed back to IVP - monitor urine output, creatinine - I/Os, daily weights - inhaled bronchodilators - O2 to keep SpO2 >90% - prednisone - incentive spirometry - PO as tolerated - DVT prophylaxis - chest pt - monitor blood sugars Jered VALE MD
--- NOTE | 2016-10-20 14:19 | PN ---
Progress Note, Physician Chief Complaint: Events noted Persistent shortness of breath (+) pedal edema History of Present Illness: Patient was seen and examined. Awake and alert. Chart was reviewed. He is ambulating, but still complains of persistent shortness of breath with exertion Denies chest pain or palpitations - Current Medication List Current Medications: Active Medications Acetaminophen (Tylenol -) 650 mg PO Q6H PRN PRN Reason: FEVER OR PAIN Albuterol Sulfate (Ventolin 0.083% Nebulizer Soln -) 1 amp NEB Q4H PRN PRN Reason: SHORT OF BREATH/WHEEZING Last Admin: 10/20/16 12:09 Dose: 1 amp Allopurinol (Zyloprim -) 100 mg PO DAILY [facility] Last Admin: 10/20/16 09:25 Dose: 100 mg Aspirin (Asa -) 81 mg PO DAILY [facility] Last Admin: 10/20/16 09:23 Dose: 81 mg Budesonide/Formoterol Fumarate (Symbicort 160/4.5mcg -) 2 puff IH BID [facility] Last Admin: 10/20/16 09:25 Dose: 2 puff Buspirone HCl (Buspar -) 5 mg PO BID [facility] Last Admin: 10/20/16 09:23 Dose: 5 mg Diltiazem HCl (Cardizem Cd -) 120 mg PO DAILY [facility] Last Admin: 10/20/16 09:23 Dose: 120 mg Docusate Sodium (Colace -) 100 mg PO Q8H PRN PRN Reason: CONSTIPATION Fentanyl (Duragesic 75mcg Patch -) 1 patch TD Q72H [facility] Last Admin: 10/17/16 22:20 Dose: 1 patch Ferrous Sulfate (Feosol -) 325 mg PO DAILY [facility] Last Admin: 10/20/16 09:24 Dose: 325 mg Furosemide (Lasix Injection -) 80 mg IVPUSH DAILY [facility] Gemfibrozil (Lopid -) 600 mg PO BID@0700,1630 [facility] Last Admin: 10/20/16 06:47 Dose: 600 mg Heparin Sodium (Porcine) (Heparin -) 5,000 unit SQ BID [facility] Last Admin: 10/20/16 09:26 Dose: 5,000 unit Insulin Aspart (Novolog Vial Sliding Scale -) 1 vial SQ ACHS [facility] PRN Reason: Protocol Last Admin: 10/20/16 11:49 Dose: Not Given Insulin Aspart (Novolog Mix 70/30 Vial) 35 units SQ BIDAC [facility] Last Admin: 10/20/16 08:49 Dose: 35 units Lactulose (Cephulac (Oral Use)) 20 gm PO BID [facility] Last Admin: 10/20/16 09:23 Dose: 20 gm Losartan Potassium (Cozaar -) 25 mg PO DAILY [facility] Last Admin: 10/20/16 09:23 Dose: 25 mg Miscellaneous (Duragesic Patch Waste) 1 each [facility] PRN PRN PRN Reason: PAIN Last Admin: 10/14/16 22:18 Dose: 1 each Oxycodone HCl (Roxicodone -) 10 mg PO Q6H PRN Last Admin: 10/20/16 14:01 Dose: 10 mg Prednisone (Deltasone -) 40 mg PO DAILY [facility] Last Admin: 10/20/16 09:24 Dose: 40 mg Roflumilast (Daliresp -) 500 mcg PO DAILY [facility] Last Admin: 10/20/16 09:24 Dose: 500 mcg Senna (Senna -) 1 tab PO [facility] Last Admin: 10/19/16 21:14 Dose: 1 tab Sitagliptin Phosphate (Januvia -) 25 mg PO DAILY@0700 [facility] Last Admin: 10/20/16 06:46 Dose: 25 mg Sodium Chloride ([place] Nasal [place] -) 2 spray NS TID PRN PRN Reason: NASAL CONGESTION Tamsulosin HCl (Flomax -) 0.4 mg PO DAILY@0830 [facility] Last Admin: 10/20/16 08:46 Dose: 0.4 mg Terazosin HCl (Hytrin -) 5 mg PO [facility] Last Admin: 10/19/16 21:14 Dose: 5 mg Tiotropium [place] (Spiriva -) 1 puff IH DAILY [facility] Last Admin: 10/20/16 09:25 Dose: 1 puff - Objective Vital Signs: Vital Signs Temperature 97.7 F 10/20/16 08:30 Pulse Rate 88 10/20/16 08:30 Respiratory Rate 18 10/20/16 08:30 Blood Pressure 130/75 10/20/16 08:30 O2 Sat by Pulse Oximetry (%) 96 10/20/16 10:00 Neck: Yes: Supple Cardiovascular: Yes: Regular Rate and Rhythm, S1, S2 Respiratory: Yes: Cough, Diminished, On Nasal O2 Gastrointestinal: Yes: Normal Bowel Sounds, Soft, Abdomen, Obese. No: Tenderness Edema: Yes Edema: LLE: 1+, RLE: 1+ Labs: CBC, BMP 10/18/16 06:30 10/18/16 06:30 Problem List - Problems (1) Acute on chronic diastolic (congestive) heart failure Code(s): I50.33 - ACUTE ON CHRONIC DIASTOLIC (CONGESTIVE) HEART FAILURE (2) COPD exacerbation Code(s): J44.1 - CHRONIC OBSTRUCTIVE PULMONARY DISEASE W (ACUTE) EXACERBATION (3) Chronic respiratory failure with hypoxia Code(s): J96.11 - CHRONIC RESPIRATORY FAILURE WITH HYPOXIA (4) HTN (hypertension) Code(s): I10 - ESSENTIAL (PRIMARY) HYPERTENSION Qualifiers: Hypertension type: essential hypertension Qualified Code(s): I10 - Essential (primary) hypertension (5) Hyperlipidemia LDL goal < 100 Code(s): E78.5 - HYPERLIPIDEMIA, UNSPECIFIED (6) Hypertriglyceridemia Code(s): E78.1 - PURE HYPERGLYCERIDEMIA (7) Shortness of breath Code(s): R06.02 - SHORTNESS OF BREATH (8) Anemia Code(s): D64.9 - ANEMIA, UNSPECIFIED Qualifiers: Anemia type: unspecified type Qualified Code(s): D64.9 - Anemia, unspecified (9) CKD (chronic kidney disease) Code(s): N18.9 - CHRONIC KIDNEY DISEASE, UNSPECIFIED Qualifiers: Chronic kidney disease stage: unspecified stage Qualified Code(s): N18.9 - Chronic kidney disease, unspecified (10) Diabetes mellitus Code(s): E11.9 - TYPE 2 DIABETES MELLITUS WITHOUT COMPLICATIONS Qualifiers: Diabetes mellitus type: type 2 Diabetes mellitus complication status: without complication Diabetes mellitus pot builder insulin use: with usp use Qualified Code(s): E11.9 - Type 2 diabetes mellitus without complications Assessment/Plan 1. Acute on chronic LV diastolic heart failure 2. COPD with chronic hypoxic respiratory failure 3. Type 2 diabetes mellitus 4. Hypercholesterolemia 5. Anemia 6. CKD 7. HTN PLAN: 1. IV diuresis with monitoring renal function and electrolytes - restarted IV Lasix 2. Transthoracic echocardiography noted (done 10/16/16) 3. Continue ASA 81 mg QD, Lopid 600 mg BID, Cardizem CD 120 mg QD, Cozaar 25 mg QD and Hytrin 5 mg QHS 4. Bronchodilator, O2 to keep SpO2 >90%, steroid taper, Daliresp and antibiotic coverage Further plans are to follow Nicholas Silver MD
--- NOTE | 2016-10-20 15:07 | PN ---
Progress Note, Physician History of Present Illness: Renal F/U Pt reports decreasing peripheral edema Still has some dyspnea Some decreased UO on the PO lasix Last labs 10/18 - Current Medication List Current Medications: Active Medications Acetaminophen (Tylenol -) 650 mg PO Q6H PRN PRN Reason: FEVER OR PAIN Albuterol Sulfate (Ventolin 0.083% Nebulizer Soln -) 1 amp NEB Q4H PRN PRN Reason: SHORT OF BREATH/WHEEZING Last Admin: 10/20/16 12:09 Dose: 1 amp Allopurinol (Zyloprim -) 100 mg PO DAILY [facility] Last Admin: 10/20/16 09:25 Dose: 100 mg Aspirin (Asa -) 81 mg PO DAILY [facility] Last Admin: 10/20/16 09:23 Dose: 81 mg Budesonide/Formoterol Fumarate (Symbicort 160/4.5mcg -) 2 puff IH BID [facility] Last Admin: 10/20/16 09:25 Dose: 2 puff Buspirone HCl (Buspar -) 5 mg PO BID [facility] Last Admin: 10/20/16 09:23 Dose: 5 mg Diltiazem HCl (Cardizem Cd -) 120 mg PO DAILY [facility] Last Admin: 10/20/16 09:23 Dose: 120 mg Docusate Sodium (Colace -) 100 mg PO Q8H PRN PRN Reason: CONSTIPATION Fentanyl (Duragesic 75mcg Patch -) 1 patch TD Q72H [facility] Last Admin: 10/17/16 22:20 Dose: 1 patch Ferrous Sulfate (Feosol -) 325 mg PO DAILY [facility] Last Admin: 10/20/16 09:24 Dose: 325 mg Furosemide (Lasix Injection -) 80 mg IVPUSH DAILY [facility] Gemfibrozil (Lopid -) 600 mg PO BID@0700,1630 [facility] Last Admin: 10/20/16 06:47 Dose: 600 mg Heparin Sodium (Porcine) (Heparin -) 5,000 unit SQ BID [facility] Last Admin: 10/20/16 09:26 Dose: 5,000 unit Insulin Aspart (Novolog Vial Sliding Scale -) 1 vial SQ ACHS [facility] PRN Reason: Protocol Last Admin: 10/20/16 11:49 Dose: Not Given Insulin Aspart (Novolog Mix 70/30 Vial) 35 units SQ BIDAC [facility] Last Admin: 10/20/16 08:49 Dose: 35 units Lactulose (Cephulac (Oral Use)) 20 gm PO BID [facility] Last Admin: 10/20/16 09:23 Dose: 20 gm Losartan Potassium (Cozaar -) 25 mg PO DAILY [facility] Last Admin: 10/20/16 09:23 Dose: 25 mg Miscellaneous (Duragesic Patch Waste) 1 each [facility] PRN PRN PRN Reason: PAIN Last Admin: 10/14/16 22:18 Dose: 1 each Oxycodone HCl (Roxicodone -) 10 mg PO Q6H PRN Last Admin: 10/20/16 14:01 Dose: 10 mg Prednisone (Deltasone -) 40 mg PO DAILY [facility] Last Admin: 10/20/16 09:24 Dose: 40 mg Roflumilast (Daliresp -) 500 mcg PO DAILY [facility] Last Admin: 10/20/16 09:24 Dose: 500 mcg Senna (Senna -) 1 tab PO [facility] Last Admin: 10/19/16 21:14 Dose: 1 tab Sitagliptin Phosphate (Januvia -) 25 mg PO DAILY@0700 [facility] Last Admin: 10/20/16 06:46 Dose: 25 mg Sodium Chloride ([place] Nasal [place] -) 2 spray NS TID PRN PRN Reason: NASAL CONGESTION Tamsulosin HCl (Flomax -) 0.4 mg PO DAILY@0830 [facility] Last Admin: 10/20/16 08:46 Dose: 0.4 mg Terazosin HCl (Hytrin -) 5 mg PO HS [facility] Last Admin: 10/19/16 21:14 Dose: 5 mg Tiotropium [place] (Spiriva -) 1 puff IH DAILY [facility] Last Admin: 10/20/16 09:25 Dose: 1 puff - Objective Vital Signs: Vital Signs Temperature 97.7 F 10/20/16 08:30 Pulse Rate 88 10/20/16 08:30 Respiratory Rate 18 10/20/16 08:30 Blood Pressure 130/75 10/20/16 08:30 O2 Sat by Pulse Oximetry (%) 96 10/20/16 10:00 Constitutional: Yes: No Distress Cardiovascular: Yes: S1, S2 Respiratory: Yes: Rhonchi Gastrointestinal: Yes: Soft, Abdomen, Obese. No: Tenderness, Rebound Edema: LLE: 2+, RLE: 2+ Labs: CBC, BMP 10/18/16 06:30 10/18/16 06:30 INR, PTT INR 1.00 (0.82-1.09) 10/14/16 17:19 Assessment/Plan Impression 1. CKD with last Cr close to baseline 2. DM 3. HTN 4. CHF with fluid overload 5. COPD 6. Narcotic dependence 7. BPH 8. Hypokalemia on labs from 2 days ago and given KCL yesterday Plan Rpt labs in am Lasix being switched back to IV Steroids as per pulmonary Dr Williamson
[2016-10-20] MEDS: SENNOSIDES 8.6MG TABLET (FP) PO SCH (21:50)
[2016-10-20] MEDS: TERAZOSIN HCL 5 MG CAPSULE PO SCH (21:50)
[2016-10-20] MEDS: fentaNYL 75mcg/hr PATCH.TD72 TD SCH (21:52)
[2016-10-20] MEDS: FENTANYL PATCH WASTE MC PRN (22:33)
[2016-10-21] MEDS: ALBUTEROL SO4 0.083% IH SOL 2.5 MG/3 ML VIAL.NEB. NEB PRN ×4 (02:27→18:20)
[2016-10-21] MEDS: sitaGLIPtin PHOSPHATE 25 MG TABLET (FP) PO SCH (06:24)
[2016-10-21] MEDS: GEMFIBROZIL 600 MG TABLET (FP) PO SCH ×2 (06:25→16:38)
[2016-10-21] MEDS: INSULIN (NOVOLOG MIX 70/30) 100 UNITS/ML MDV SQ SCH ×2 (06:26→16:46)
[2016-10-21] MEDS: INSULIN SLIDING SCALE (NOVOLOG) 1 VIAL SQ SCH ×4 (06:26→23:59)
[2016-10-21] MEDS: TAMSULOSIN HCL 0.4 MG CAP.ER.24H (FP) PO SCH (08:18)
[2016-10-21 08:40] LABS: BASOPHIL 0.2 % (0-2.0); EOSINOPHIL 0.4 % (0-4.5); MCH 30.1 pg (25.7-33.7); MCHC 32.6 g/dl (32.0-35.9); MEAN CELL VOLUME 92.5 fl (80-96); MEAN PLT VOLUME 9.5 fl (7.5-11.1); NEUTROPHILS 75.3 % (42.8-82.8); PLATELET COUNT 191 K/MM3 (134-434); RDW 15.6 % (11.9-15.9); WHITE BLOOD COUNT 7.3 K/mm3 (4.0-10.0)
[2016-10-21 08:53] LABS: ALBUMIN 3.1 g/dl (3.4-5.0); CALCIUM 9.1 mg/dL (8.5-10.1); MAGNESIUM 2.4 mg/dL (1.8-2.4)
[2016-10-21 08:57] LABS: BILIRUBIN,TOTAL 0.3 mg/dL (0.2-1.0); CREATININE 1.5 mg/dL (0.7-1.3); TOT PROT 6.2 g/dl (6.4-8.2)
[2016-10-21] MEDS ORDERED: PT OWN MED DRAWER 7, Y5N ONE ×4 (09:37→22:45)
[2016-10-21] MEDS: ASPIRIN 81 MG CHEWABLE TABLETS PO SCH (09:42)
[2016-10-21] MEDS: LOSARTAN POTASSIUM 25 MG TABLET PO SCH (09:42)
[2016-10-21] MEDS: LACTULOSE 20 GM/30 ML UDC (FOR ORAL USE ONLY) PO SCH ×2 (09:42→23:53)
[2016-10-21] MEDS: busPIRone HCL 5 MG TABLET PO SCH ×3 (09:42→22:38)
[2016-10-21] MEDS: predniSONE 20 MG TABLET (UD) PO SCH (09:43)
[2016-10-21] MEDS: ROFLUMILAST 500 MCG TABLET PO SCH (09:43)
[2016-10-21] MEDS: ALLOPURINOL 100 MG TABLET (FP) PO SCH (09:43)
[2016-10-21] MEDS: FERROUS SO4 325 MG TABLET (FP) PO SCH (09:43)
[2016-10-21] MEDS: BUDESONIDE/FORMETEROL FUMARATE 160/4.5 mcg INHALER IH SCH ×2 (09:44→23:54)
[2016-10-21] MEDS: FUROSEMIDE 40 MG/4 ML INJECTABLE VIAL IVPUSH SCH (09:44)
[2016-10-21] MEDS: TIOTROPIUM BROMIDE 18 MCG/INH (DEVICE W/ 5 CAPSULES) IH SCH (09:44)
[2016-10-21] MEDS: HEPARIN NA (PORCINE) 5,000 UNITS/ML 1ML VIAL SQ SCH ×2 (09:46→23:53)
--- NOTE | 2016-10-21 10:31 | PN ---
Progress Note, Physician Chief Complaint: Events noted Persistent shortness of breath - a little better than yesterday (+) pedal edema History of Present Illness: Patient was seen and examined. Awake and alert. Chart was reviewed. Denies chest pain or palpitations. Slightly improved shortness of breath and better with IV diuretics - Current Medication List Current Medications: Active Medications Acetaminophen (Tylenol -) 650 mg PO Q6H PRN PRN Reason: FEVER OR PAIN Albuterol Sulfate (Ventolin 0.083% Nebulizer Soln -) 1 amp NEB Q4H PRN PRN Reason: SHORT OF BREATH/WHEEZING Last Admin: 10/21/16 06:24 Dose: 1 amp Allopurinol (Zyloprim -) 100 mg PO DAILY [facility] Last Admin: 10/21/16 09:43 Dose: 100 mg Aspirin (Asa -) 81 mg PO DAILY [facility] Last Admin: 10/21/16 09:42 Dose: 81 mg Budesonide/Formoterol Fumarate (Symbicort 160/4.5mcg -) 2 puff IH BID [facility] Last Admin: 10/21/16 09:44 Dose: 2 puff Buspirone HCl (Buspar -) 5 mg PO BID [facility] Last Admin: 10/21/16 09:42 Dose: 5 mg Diltiazem HCl (Cardizem Cd -) 120 mg PO DAILY [facility] Last Admin: 10/21/16 09:42 Dose: 120 mg Docusate Sodium (Colace -) 100 mg PO Q8H PRN PRN Reason: CONSTIPATION Last Admin: 10/20/16 21:49 Dose: 100 mg Fentanyl (Duragesic 75mcg Patch -) 1 patch TD Q72H [facility] Last Admin: 10/20/16 21:52 Dose: 1 patch Ferrous Sulfate (Feosol -) 325 mg PO DAILY [facility] Last Admin: 10/21/16 09:43 Dose: 325 mg Furosemide (Lasix Injection -) 80 mg IVPUSH DAILY [facility] Last Admin: 10/21/16 09:44 Dose: 80 mg Gemfibrozil (Lopid -) 600 mg PO BID@0700,1630 [facility] Last Admin: 10/21/16 06:25 Dose: 600 mg Heparin Sodium (Porcine) (Heparin -) 5,000 unit SQ BID [facility] Last Admin: 10/21/16 09:46 Dose: 5,000 unit Insulin Aspart (Novolog Vial Sliding Scale -) 1 vial SQ ACHS [facility] PRN Reason: Protocol Last Admin: 10/21/16 06:26 Dose: Not Given Insulin Aspart (Novolog Mix 70/30 Vial) 35 units SQ BIDAC [facility] Last Admin: 10/21/16 06:26 Dose: 35 units Lactulose (Cephulac (Oral Use)) 20 gm PO BID [facility] Last Admin: 10/21/16 09:42 Dose: 20 gm Losartan Potassium (Cozaar -) 25 mg PO DAILY [facility] Last Admin: 10/21/16 09:42 Dose: 25 mg Miscellaneous (Duragesic Patch Waste) 1 each MC PRN PRN PRN Reason: PAIN Last Admin: 10/20/16 22:33 Dose: 1 each Oxycodone HCl (Roxicodone -) 10 mg PO Q6H PRN Last Admin: 10/20/16 23:08 Dose: 10 mg Prednisone (Deltasone -) 40 mg PO DAILY [facility] Last Admin: 10/21/16 09:43 Dose: 40 mg Roflumilast (Daliresp -) 500 mcg PO DAILY [facility] Last Admin: 10/21/16 09:43 Dose: 500 mcg Senna (Senna -) 1 tab PO HS [facility] Last Admin: 10/20/16 21:50 Dose: 1 tab Sitagliptin Phosphate (Januvia -) 25 mg PO DAILY@0700 [facility] Last Admin: 10/21/16 06:24 Dose: 25 mg Sodium Chloride ([place] Nasal [place] -) 2 spray NS TID PRN PRN Reason: NASAL CONGESTION Tamsulosin HCl (Flomax -) 0.4 mg PO DAILY@0830 [facility] Last Admin: 10/21/16 08:18 Dose: 0.4 mg Terazosin HCl (Hytrin -) 5 mg PO HS [facility] Last Admin: 10/20/16 21:50 Dose: 5 mg Tiotropium [place] (Spiriva -) 1 puff IH DAILY [facility] Last Admin: 10/21/16 09:44 Dose: 1 puff - Objective Vital Signs: Vital Signs Temperature 97.9 F 10/21/16 08:55 Pulse Rate 90 10/21/16 08:55 Respiratory Rate 18 10/21/16 08:55 Blood Pressure 127/61 10/21/16 08:55 O2 Sat by Pulse Oximetry (%) 93 L 10/21/16 10:00 Neck: Yes: Supple Cardiovascular: Yes: Regular Rate and Rhythm, S1, S2 Respiratory: Yes: Diminished Gastrointestinal: Yes: Normal Bowel Sounds, Soft. No: Tenderness Edema: Yes Edema: LLE: 1+, RLE: 1+ Labs: CBC, BMP 10/21/16 07:20 10/21/16 07:20 Problem List - Problems (1) Acute on chronic diastolic (congestive) heart failure Code(s): I50.33 - ACUTE ON CHRONIC DIASTOLIC (CONGESTIVE) HEART FAILURE (2) COPD exacerbation Code(s): J44.1 - CHRONIC OBSTRUCTIVE PULMONARY DISEASE W (ACUTE) EXACERBATION (3) Chronic respiratory failure with hypoxia Code(s): J96.11 - CHRONIC RESPIRATORY FAILURE WITH HYPOXIA (4) HTN (hypertension) Code(s): I10 - ESSENTIAL (PRIMARY) HYPERTENSION Qualifiers: Hypertension type: essential hypertension Qualified Code(s): I10 - Essential (primary) hypertension (5) Hyperlipidemia LDL goal < 100 Code(s): E78.5 - HYPERLIPIDEMIA, UNSPECIFIED (6) Hypertriglyceridemia Code(s): E78.1 - PURE HYPERGLYCERIDEMIA (7) Shortness of breath Code(s): R06.02 - SHORTNESS OF BREATH (8) Anemia Code(s): D64.9 - ANEMIA, UNSPECIFIED Qualifiers: Anemia type: unspecified type Qualified Code(s): D64.9 - Anemia, unspecified (9) CKD (chronic kidney disease) Code(s): N18.9 - CHRONIC KIDNEY DISEASE, UNSPECIFIED Qualifiers: Chronic kidney disease stage: unspecified stage Qualified Code(s): N18.9 - Chronic kidney disease, unspecified (10) Diabetes mellitus Code(s): E11.9 - TYPE 2 DIABETES MELLITUS WITHOUT COMPLICATIONS Qualifiers: Diabetes mellitus type: type 2 Diabetes mellitus complication status: without complication Diabetes mellitus assisted insulin use: with assisted use Qualified Code(s): E11.9 - Type 2 diabetes mellitus without complications Assessment/Plan 1. Acute on chronic LV diastolic heart failure 2. COPD with chronic hypoxic respiratory failure 3. Type 2 diabetes mellitus 4. Hypercholesterolemia 5. Anemia 6. CKD 7. HTN PLAN: 1. IV diuresis with monitoring renal function and electrolytes 2. Continue ASA 81 mg QD, Lopid 600 mg BID, Cardizem CD 120 mg QD, Cozaar 25 mg QD and Hytrin 5 mg QHS 3. Bronchodilator, O2 to keep SpO2 >90%, steroid taper, Daliresp and antibiotic coverage Further plans are to follow Nicholas Silver MD
--- NOTE | 2016-10-21 10:33 | PN ---
Progress Note, Physician Chief Complaint: C/O INSOMNIA VERY UPSET BC DID NOT GET AMBIEN WANTS PAIN Rx INCed FEELS IV LASIX IS NOT GOOD FOR HIM - Current Medication List Current Medications: Active Medications Acetaminophen (Tylenol -) 650 mg PO Q6H PRN PRN Reason: FEVER OR PAIN Albuterol Sulfate (Ventolin 0.083% Nebulizer Soln -) 1 amp NEB Q4H PRN PRN Reason: SHORT OF BREATH/WHEEZING Last Admin: 10/21/16 06:24 Dose: 1 amp Allopurinol (Zyloprim -) 100 mg PO DAILY [facility] Last Admin: 10/21/16 09:43 Dose: 100 mg Aspirin (Asa -) 81 mg PO DAILY [facility] Last Admin: 10/21/16 09:42 Dose: 81 mg Budesonide/Formoterol Fumarate (Symbicort 160/4.5mcg -) 2 puff IH BID [facility] Last Admin: 10/21/16 09:44 Dose: 2 puff Buspirone HCl (Buspar -) 5 mg PO BID [facility] Last Admin: 10/21/16 09:42 Dose: 5 mg Diltiazem HCl (Cardizem Cd -) 120 mg PO DAILY [facility] Last Admin: 10/21/16 09:42 Dose: 120 mg Docusate Sodium (Colace -) 100 mg PO Q8H PRN PRN Reason: CONSTIPATION Last Admin: 10/20/16 21:49 Dose: 100 mg Fentanyl (Duragesic 75mcg Patch -) 1 patch TD Q72H [facility] Last Admin: 10/20/16 21:52 Dose: 1 patch Ferrous Sulfate (Feosol -) 325 mg PO DAILY [facility] Last Admin: 10/21/16 09:43 Dose: 325 mg Furosemide (Lasix Injection -) 80 mg IVPUSH DAILY [facility] Last Admin: 10/21/16 09:44 Dose: 80 mg Gemfibrozil (Lopid -) 600 mg PO BID@0700,1630 [facility] Last Admin: 10/21/16 06:25 Dose: 600 mg Heparin Sodium (Porcine) (Heparin -) 5,000 unit SQ BID [facility] Last Admin: 10/21/16 09:46 Dose: 5,000 unit Insulin Aspart (Novolog Vial Sliding Scale -) 1 vial SQ ACHS [facility] PRN Reason: Protocol Last Admin: 02/19/17 06:26 Dose: Not Given Insulin Aspart (Novolog Mix 70/30 Vial) 35 units SQ BIDAC [facility] Last Admin: 10/21/16 06:26 Dose: 35 units Lactulose (Cephulac (Oral Use)) 20 gm PO BID [facility] Last Admin: 10/21/16 09:42 Dose: 20 gm Losartan Potassium (Cozaar -) 25 mg PO DAILY [facility] Last Admin: 10/21/16 09:42 Dose: 25 mg Miscellaneous (Duragesic Patch Waste) 1 each MC PRN PRN PRN Reason: PAIN Last Admin: 10/20/16 22:33 Dose: 1 each Oxycodone HCl (Roxicodone -) 10 mg PO Q6H PRN Last Admin: 10/20/16 23:08 Dose: 10 mg Prednisone (Deltasone -) 40 mg PO DAILY [facility] Last Admin: 10/21/16 09:43 Dose: 40 mg Roflumilast (Daliresp -) 500 mcg PO DAILY [facility] Last Admin: 10/21/16 09:43 Dose: 500 mcg Senna (Senna -) 1 tab PO HS [facility] Last Admin: 10/20/16 21:50 Dose: 1 tab Sitagliptin Phosphate (Januvia -) 25 mg PO DAILY@0700 [facility] Last Admin: 10/21/16 06:24 Dose: 25 mg Sodium Chloride ([place] Nasal [place] -) 2 spray NS TID PRN PRN Reason: NASAL CONGESTION Tamsulosin HCl (Flomax -) 0.4 mg PO DAILY@0830 [facility] Last Admin: 10/21/16 08:18 Dose: 0.4 mg Terazosin HCl (Hytrin -) 5 mg PO HS [facility] Last Admin: 10/20/16 21:50 Dose: 5 mg Tiotropium [place] (Spiriva -) 1 puff IH DAILY [facility] Last Admin: 10/21/16 09:44 Dose: 1 puff - Objective Vital Signs: Vital Signs Temperature 97.9 F 10/21/16 08:55 Pulse Rate 90 10/21/16 08:55 Respiratory Rate 18 10/21/16 08:55 Blood Pressure 127/61 10/21/16 08:55 O2 Sat by Pulse Oximetry (%) 93 L 10/21/16 10:00 Cardiovascular: Yes: WNL Respiratory: Yes: Rhonchi Gastrointestinal: Yes: WNL Edema: Yes Labs: CBC, BMP 10/21/16 07:20 10/21/16 07:20 INR, PTT INR 1.00 (0.82-1.09) 10/14/16 17:19 Problem List - Problems (1) Chronic respiratory failure with hypoxia Code(s): J96.11 - CHRONIC RESPIRATORY FAILURE WITH HYPOXIA (2) Diabetes mellitus, insulin dependent (IDDM), uncontrolled Code(s): E10.65 - TYPE 1 DIABETES MELLITUS WITH HYPERGLYCEMIA Qualifiers: Diabetes mellitus complication status: without complication Qualified Code(s): E10.9 - Type 1 diabetes mellitus without complications (3) HTN (hypertension) Code(s): I10 - ESSENTIAL (PRIMARY) HYPERTENSION Qualifiers: Hypertension type: essential hypertension Qualified Code(s): I10 - Essential (primary) hypertension (4) Leg edema Code(s): R60.0 - LOCALIZED EDEMA Qualifiers: Laterality: bilateral Qualified Code(s): R60.0 - Localized edema (5) Wheeze Code(s): R06.2 - WHEEZING Assessment/Plan (1) Leg edema Assessment/Plan: renal increase iv lasix Code(s): R60.0 - LOCALIZED EDEMA Qualifiers: Laterality: bilateral Qualified Code(s): R60.0 - Localized edema (2) COPD exacerbation Assessment/Plan: pulm steroids symbicort daliresp spiriva patient doesn't want turdoza oxygen [place] Code(s): J44.1 - CHRONIC OBSTRUCTIVE PULMONARY DISEASE W (ACUTE) EXACERBATION (3) HTN (hypertension) Assessment/Plan: cozaar cardizem Code(s): I10 - ESSENTIAL (PRIMARY) HYPERTENSION Qualifiers: Hypertension type: essential hypertension Qualified Code(s): I10 - Essential (primary) hypertension (4) Hypertriglyceridemia Assessment/Plan: lopid Code(s): E78.1 - PURE HYPERGLYCERIDEMIA (5) BPH (benign prostatic hyperplasia) Assessment/Plan: hytrin and flomax Code(s): N40.0 - BENIGN PROSTATIC HYPERPLASIA WITHOUT LOWER URINRY TRACT SYMP (6) Chronic back pain greater than 3 months duration Assessment/Plan: fentanyl and oxycodone Code(s): M54.9 - DORSALGIA, UNSPECIFIED G89.29 - OTHER CHRONIC PAIN (7) DM Assessment/Plan: Condition: Improved DISCHARGE PLANNING ON HOLD PASTOR BERNABE
[2016-10-21] MEDS ORDERED: ZOLPIDEM TARTRATE 5 MG TABLET PO PRN (10:34)
--- NOTE | 2016-10-21 11:32 | PN ---
Progress Note, Physician History of Present Illness: Renal F/U Pt walking [facility] without distress or [place] oxygen Pt was given IV lasix this am and he states he urinated more since then The peripheral edema is less - Current Medication List Current Medications: Active Medications Acetaminophen (Tylenol -) 650 mg PO Q6H PRN PRN Reason: FEVER OR PAIN Albuterol Sulfate (Ventolin 0.083% Nebulizer Soln -) 1 amp NEB Q4H PRN PRN Reason: SHORT OF BREATH/WHEEZING Last Admin: 10/21/16 06:24 Dose: 1 amp Allopurinol (Zyloprim -) 100 mg PO DAILY [facility] Last Admin: 10/21/16 09:43 Dose: 100 mg Aspirin (Asa -) 81 mg PO DAILY [facility] Last Admin: 10/21/16 09:42 Dose: 81 mg Budesonide/Formoterol Fumarate (Symbicort 160/4.5mcg -) 2 puff IH BID [facility] Last Admin: 10/21/16 09:44 Dose: 2 puff Buspirone HCl (Buspar -) 5 mg PO BID [facility] Last Admin: 10/21/16 09:42 Dose: 5 mg Diltiazem HCl (Cardizem Cd -) 120 mg PO DAILY [facility] Last Admin: 10/21/16 09:42 Dose: 120 mg Docusate Sodium (Colace -) 100 mg PO Q8H PRN PRN Reason: CONSTIPATION Last Admin: 10/20/16 21:49 Dose: 100 mg Fentanyl (Duragesic 75mcg Patch -) 1 patch TD Q72H [facility] Last Admin: 10/20/16 21:52 Dose: 1 patch Ferrous Sulfate (Feosol -) 325 mg PO DAILY [facility] Last Admin: 10/21/16 09:43 Dose: 325 mg Furosemide (Lasix Injection -) 80 mg IVPUSH DAILY [facility] Last Admin: 10/21/16 09:44 Dose: 80 mg Gemfibrozil (Lopid -) 600 mg PO BID@0700,1630 [facility] Last Admin: 10/21/16 06:25 Dose: 600 mg Heparin Sodium (Porcine) (Heparin -) 5,000 unit SQ BID [facility] Last Admin: 10/21/16 09:46 Dose: 5,000 unit Insulin Aspart (Novolog Vial Sliding Scale -) 1 vial SQ ACHS [facility] PRN Reason: Protocol Last Admin: 10/21/16 06:26 Dose: Not Given Insulin Aspart (Novolog Mix 70/30 Vial) 35 units SQ BIDAC [facility] Last Admin: 10/21/16 06:26 Dose: 35 units Lactulose (Cephulac (Oral Use)) 20 gm PO BID [facility] Last Admin: 10/21/16 09:42 Dose: 20 gm Losartan Potassium (Cozaar -) 25 mg PO DAILY [facility] Last Admin: 10/21/16 09:42 Dose: 25 mg Miscellaneous (Duragesic Patch Waste) 1 each MC PRN PRN PRN Reason: PAIN Last Admin: 10/20/16 22:33 Dose: 1 each Oxycodone HCl (Roxicodone -) 10 mg PO Q6H PRN Last Admin: 10/20/16 23:08 Dose: 10 mg Prednisone (Deltasone -) 40 mg PO DAILY [facility] Last Admin: 10/21/16 09:43 Dose: 40 mg Roflumilast (Daliresp -) 500 mcg PO DAILY [facility] Last Admin: 10/21/16 09:43 Dose: 500 mcg Senna (Senna -) 1 tab PO HS [facility] Last Admin: 10/20/16 21:50 Dose: 1 tab Sitagliptin Phosphate (Januvia -) 25 mg PO DAILY@0700 [facility] Last Admin: 10/21/16 06:24 Dose: 25 mg Sodium Chloride ([place] Nasal [place] -) 2 spray NS TID PRN PRN Reason: NASAL CONGESTION Tamsulosin HCl (Flomax -) 0.4 mg PO DAILY@0830 [facility] Last Admin: 10/21/16 08:18 Dose: 0.4 mg Terazosin HCl (Hytrin -) 5 mg PO HS [facility] Last Admin: 10/20/16 21:50 Dose: 5 mg Tiotropium [place] (Spiriva -) 1 puff IH DAILY [facility] Last Admin: 10/21/16 09:44 Dose: 1 puff Zolpidem Tartrate (Ambien -) 5 mg PO HS PRN PRN Reason: INSOMNIA - Objective Vital Signs: Vital Signs Temperature 97.9 F 10/21/16 08:55 Pulse Rate 90 10/21/16 08:55 Respiratory Rate 18 10/21/16 08:55 Blood Pressure 127/61 10/21/16 08:55 O2 Sat by Pulse Oximetry (%) 93 L 10/21/16 10:00 Constitutional: Yes: No Distress Cardiovascular: Yes: S1, S2 Respiratory: Yes: Rhonchi Gastrointestinal: Yes: Soft, Abdomen, Obese. No: Tenderness, Rebound Edema: Yes (Decreased ) Labs: CBC, BMP 10/21/16 07:20 10/21/16 07:20 INR, PTT INR 1.00 (0.82-1.09) 10/14/16 17:19 Assessment/Plan Impression 1. Acute on CKD 2. DM 3. HTN 4. CHF with fluid overload 5. COPD 6. Narcotic dependence 7. BPH 8. S/P Hypokalemia Plan Consider IV Lasix Daily Wt Rpt labs in am Steroids as per pulmonary Dr Williamson
[2016-10-21] MEDS ORDERED: HYDROmorphone HCL CARPU-JECT 1 MG/1 ML DISP.SYRIN IM PRN (11:48)
--- NOTE | 2016-10-21 14:27 | PN ---
Progress Note (short form) - Note Progress Note: PULMONARY AMBULATING IN [place] APPEARS STABLE VSS ANICTERIC SCATTERED CRACKLES S1S2 OBESE 2-3+ EDEMA LOWER EXT LABS/MEDS/IMAGIMG/NOTES REVIEWED Acute on Chronic LV Diastolic Heart Failure COPD Atelectasis Recent Pneumonia Chronic Hypoxic Respiratory Failure CKD HTN DM Hyperlipidemia - lasix changed back to IVP - monitor urine output, creatinine - I/Os, daily weights - inhaled bronchodilators - O2 to keep SpO2 >90% - prednisone - incentive spirometry - PO as tolerated - DVT prophylaxis - chest pt - monitor blood sugars - discharge planning Jered VALE MD
[2016-10-21] MEDS: HYDROmorphone HCL CARPU-JECT 2 MG/1 ML DISP.SYRIN IM PRN ×2 (15:41→22:35)
[2016-10-21] MEDS ORDERED: INSULIN (NOVOLOG) ASPART 100 UNITS/ML 10ML VIAL ONE (16:43)
[2016-10-21] MEDS: SENNOSIDES 8.6MG TABLET (FP) PO SCH (22:34)
[2016-10-21] MEDS: TERAZOSIN HCL 5 MG CAPSULE PO SCH (22:35)
[2016-10-21] MEDS ORDERED: HEPARIN NA (PORCINE) 5,000 UNITS/ML 1ML VIAL ONE (22:45)
[2016-10-22] MEDS: HYDROmorphone HCL CARPU-JECT 2 MG/1 ML DISP.SYRIN IM PRN ×3 (03:54→21:23)
[2016-10-22] MEDS: ALBUTEROL SO4 0.083% IH SOL 2.5 MG/3 ML VIAL.NEB. NEB PRN ×5 (04:45→21:52)
[2016-10-22] MEDS: sitaGLIPtin PHOSPHATE 25 MG TABLET (FP) PO SCH (06:27)
[2016-10-22] MEDS: INSULIN (NOVOLOG MIX 70/30) 100 UNITS/ML MDV SQ SCH ×2 (06:27→18:03)
[2016-10-22] MEDS: GEMFIBROZIL 600 MG TABLET (FP) PO SCH ×2 (06:27→18:02)
[2016-10-22] MEDS: INSULIN SLIDING SCALE (NOVOLOG) 1 VIAL SQ SCH ×4 (06:28→21:22)
[2016-10-22 09:56] LABS: ALBUMIN 3.1 g/dl (3.4-5.0); BILIRUBIN,TOTAL 0.3 mg/dL (0.2-1.0); CALCIUM 8.9 mg/dL (8.5-10.1); CREATININE 1.4 mg/dL (0.7-1.3); TOT PROT 6.2 g/dl (6.4-8.2)
[2016-10-22 10:12] LABS: EOSINOPHIL 0.4 % (0-4.5); MCH 30.3 pg (25.7-33.7); MCHC 32.8 g/dl (32.0-35.9); MEAN CELL VOLUME 92.3 fl (80-96); MEAN PLT VOLUME 9.4 fl (7.5-11.1); NEUTROPHILS 75.8 % (42.8-82.8); PLATELET COUNT 207 K/MM3 (134-434); RDW 15.8 % (11.9-15.9); WHITE BLOOD COUNT 7.8 K/mm3 (4.0-10.0)
[2016-10-22] MEDS: ASPIRIN 81 MG CHEWABLE TABLETS PO SCH (10:29)
[2016-10-22] MEDS: LOSARTAN POTASSIUM 25 MG TABLET PO SCH (10:30)
[2016-10-22] MEDS: ROFLUMILAST 500 MCG TABLET PO SCH (10:30)
[2016-10-22] MEDS: FERROUS SO4 325 MG TABLET (FP) PO SCH (10:30)
[2016-10-22] MEDS: predniSONE 20 MG TABLET (UD) PO SCH (10:30)
[2016-10-22] MEDS: LACTULOSE 20 GM/30 ML UDC (FOR ORAL USE ONLY) PO SCH ×2 (10:30→21:22)
[2016-10-22] MEDS: busPIRone HCL 5 MG TABLET PO SCH ×2 (10:30→21:23)
[2016-10-22] MEDS: ALLOPURINOL 100 MG TABLET (FP) PO SCH (10:31)
[2016-10-22] MEDS: TIOTROPIUM BROMIDE 18 MCG/INH (DEVICE W/ 5 CAPSULES) IH SCH (10:31)
[2016-10-22] MEDS: FUROSEMIDE 40 MG/4 ML INJECTABLE VIAL IVPUSH SCH (10:31)
[2016-10-22] MEDS: BUDESONIDE/FORMETEROL FUMARATE 160/4.5 mcg INHALER IH SCH ×2 (10:34→21:23)
[2016-10-22] MEDS ORDERED: PT OWN MED DRAWER 7, Y5N ONE ×2 (10:42→21:18)
--- NOTE | 2016-10-22 11:16 | PN ---
Progress Note, Physician Chief Complaint: Events noted Persistent shortness of breath - improving (+) pedal edema persists Overall clinically improving History of Present Illness: Patient was seen and examined. Awake and alert. Chart was reviewed. Denies chest pain or palpitations. Clinically better with less congestion - Current Medication List Current Medications: Active Medications Acetaminophen (Tylenol -) 650 mg PO Q6H PRN PRN Reason: FEVER OR PAIN Albuterol Sulfate (Ventolin 0.083% Nebulizer Soln -) 1 amp NEB Q4H PRN PRN Reason: SHORT OF BREATH/WHEEZING Last Admin: 10/22/16 10:44 Dose: 1 amp Allopurinol (Zyloprim -) 100 mg PO DAILY [facility] Last Admin: 10/22/16 10:31 Dose: 100 mg Aspirin (Asa -) 81 mg PO DAILY [facility] Last Admin: 10/22/16 10:29 Dose: 81 mg Budesonide/Formoterol Fumarate (Symbicort 160/4.5mcg -) 2 puff IH BID [facility] Last Admin: 10/22/16 10:34 Dose: 2 puff Buspirone HCl (Buspar -) 5 mg PO BID [facility] Last Admin: 10/22/16 10:30 Dose: Not Given Diltiazem HCl (Cardizem Cd -) 120 mg PO DAILY [facility] Last Admin: 10/22/16 10:30 Dose: 120 mg Docusate Sodium (Colace -) 100 mg PO Q8H PRN PRN Reason: CONSTIPATION Last Admin: 10/20/16 21:49 Dose: 100 mg Ferrous Sulfate (Feosol -) 325 mg PO DAILY [facility] Last Admin: 10/22/16 10:30 Dose: 325 mg Furosemide (Lasix Injection -) 80 mg IVPUSH DAILY [facility] Last Admin: 10/22/16 10:31 Dose: 80 mg Gemfibrozil (Lopid -) 600 mg PO BID@0700,1630 [facility] Last Admin: 10/22/16 06:27 Dose: 600 mg Hydromorphone HCl (Dilaudid Injection -) 2 mg IM Q4H PRN PRN Reason: PAIN Last Admin: 10/22/16 03:54 Dose: 2 mg Insulin Aspart (Novolog Vial Sliding Scale -) 1 vial SQ ACHS [facility] PRN Reason: Protocol Last Admin: 10/22/16 06:28 Dose: Not Given Insulin Aspart (Novolog Mix 70/30 Vial) 35 units SQ BIDAC [facility] Last Admin: 10/22/16 06:27 Dose: 35 units Lactulose (Cephulac (Oral Use)) 20 gm PO BID [facility] Last Admin: 10/22/16 10:30 Dose: 20 gm Losartan Potassium (Cozaar -) 25 mg PO DAILY [facility] Last Admin: 10/22/16 10:30 Dose: 25 mg Miscellaneous (Duragesic Patch Waste) 1 each PRN PRN PRN Reason: PAIN Last Admin: 10/20/16 22:33 Dose: 1 each Prednisone (Deltasone -) 40 mg PO DAILY [facility] Last Admin: 10/22/16 10:30 Dose: 40 mg Roflumilast (Daliresp -) 500 mcg PO DAILY [facility] Last Admin: 10/22/16 10:30 Dose: 500 mcg Senna (Senna -) 1 tab PO HS [facility] Last Admin: 10/21/16 22:34 Dose: 1 tab Sitagliptin Phosphate (Januvia -) 25 mg PO DAILY@0700 [facility] Last Admin: 10/22/16 06:27 Dose: 25 mg Sodium Chloride ([place] Nasal [place] -) 2 spray NS TID PRN PRN Reason: NASAL CONGESTION Tamsulosin HCl (Flomax -) 0.4 mg PO DAILY@0830 [facility] Last Admin: 10/21/16 08:18 Dose: 0.4 mg Terazosin HCl (Hytrin -) 5 mg PO HS [facility] Last Admin: 10/21/16 22:35 Dose: 5 mg Tiotropium [place] (Spiriva -) 1 puff IH DAILY [facility] Last Admin: 10/22/16 10:31 Dose: 1 puff Zolpidem Tartrate (Ambien -) 5 mg PO HS PRN PRN Reason: INSOMNIA - Objective Vital Signs: Vital Signs Temperature 98.2 F 10/21/16 22:00 Pulse Rate 85 10/22/16 10:45 Respiratory Rate 18 10/21/16 22:00 Blood Pressure 142/80 10/21/16 22:00 O2 Sat by Pulse Oximetry (%) 95 10/22/16 10:45 Neck: Yes: Supple Cardiovascular: Yes: Regular Rate and Rhythm, S1, S2 Respiratory: Yes: Diminished, Rhonchi Gastrointestinal: Yes: Normal Bowel Sounds, Soft, Abdomen, Obese. No: Tenderness Edema: Yes Edema: LLE: 1+, RLE: 1+ Labs: CBC, BMP 10/22/16 09:00 10/22/16 09:00 Problem List - Problems (1) Acute on chronic diastolic (congestive) heart failure Code(s): I50.33 - ACUTE ON CHRONIC DIASTOLIC (CONGESTIVE) HEART FAILURE (2) COPD exacerbation Code(s): J44.1 - CHRONIC OBSTRUCTIVE PULMONARY DISEASE W (ACUTE) EXACERBATION (3) Chronic respiratory failure with hypoxia Code(s): J96.11 - CHRONIC RESPIRATORY FAILURE WITH HYPOXIA (4) HTN (hypertension) Code(s): I10 - ESSENTIAL (PRIMARY) HYPERTENSION Qualifiers: Hypertension type: essential hypertension Qualified Code(s): I10 - Essential (primary) hypertension (5) Hyperlipidemia LDL goal < 100 Code(s): E78.5 - HYPERLIPIDEMIA, UNSPECIFIED (6) Hypertriglyceridemia Code(s): E78.1 - PURE HYPERGLYCERIDEMIA (7) Shortness of breath Code(s): R06.02 - SHORTNESS OF BREATH (8) Anemia Code(s): D64.9 - ANEMIA, UNSPECIFIED Qualifiers: Anemia type: unspecified type Qualified Code(s): D64.9 - Anemia, unspecified (9) CKD (chronic kidney disease) Code(s): N18.9 - CHRONIC KIDNEY DISEASE, UNSPECIFIED Qualifiers: Chronic kidney disease stage: unspecified stage Qualified Code(s): N18.9 - Chronic kidney disease, unspecified (10) Diabetes mellitus Code(s): E11.9 - TYPE 2 DIABETES MELLITUS WITHOUT COMPLICATIONS Qualifiers: Diabetes mellitus type: type 2 Diabetes mellitus complication status: without complication Diabetes mellitus long term care social worker insulin use: with long term care social worker use Qualified Code(s): E11.9 - Type 2 diabetes mellitus without complications Assessment/Plan 1. Acute on chronic LV diastolic heart failure 2. COPD with chronic hypoxic respiratory failure 3. Type 2 diabetes mellitus 4. Hypercholesterolemia 5. Anemia 6. CKD 7. HTN PLAN: 1. IV diuresis with monitoring renal function and electrolytes 2. Continue ASA 81 mg QD, Lopid 600 mg BID, Cardizem CD 120 mg QD, Cozaar 25 mg QD and Hytrin 5 mg QHS 3. Bronchodilator, O2 to keep SpO2 >90%, steroid taper, Daliresp and antibiotic coverage Further plans are to follow Nicholas Silver MD
--- NOTE | 2016-10-22 11:38 | PN ---
Progress Note, Physician Chief Complaint: ambulating in hallways iv lasix - Current Medication List Current Medications: Active Medications Acetaminophen (Tylenol -) 650 mg PO Q6H PRN PRN Reason: FEVER OR PAIN Albuterol Sulfate (Ventolin 0.083% Nebulizer Soln -) 1 amp NEB Q4H PRN PRN Reason: SHORT OF BREATH/WHEEZING Last Admin: 10/22/16 10:44 Dose: 1 amp Allopurinol (Zyloprim -) 100 mg PO DAILY [facility] [place] Last Admin: 10/22/16 10:31 Dose: 100 mg Aspirin (Asa -) 81 mg PO DAILY [facility] [place] Last Admin: 10/22/16 10:29 Dose: 81 mg Budesonide/Formoterol Fumarate (Symbicort 160/4.5mcg -) 2 puff IH BID [facility] [place] Last Admin: 10/22/16 10:34 Dose: 2 puff Buspirone HCl (Buspar -) 5 mg PO BID [facility] [place] Last Admin: 10/22/16 10:30 Dose: Not Given Diltiazem HCl (Cardizem Cd -) 120 mg PO DAILY [facility] [place] Last Admin: 10/22/16 10:30 Dose: 120 mg Docusate Sodium (Colace -) 100 mg PO Q8H PRN PRN Reason: CONSTIPATION Last Admin: 10/20/16 21:49 Dose: 100 mg Ferrous Sulfate (Feosol -) 325 mg PO DAILY [facility] [place] Last Admin: 10/22/16 10:30 Dose: 325 mg Furosemide (Lasix Injection -) 80 mg IVPUSH DAILY [facility] [place] Last Admin: 10/22/16 10:31 Dose: 80 mg Gemfibrozil (Lopid -) 600 mg PO BID@0700,1630 [facility] [place] Last Admin: 10/22/16 06:27 Dose: 600 mg Hydromorphone HCl (Dilaudid Injection -) 2 mg IM Q4H PRN PRN Reason: PAIN Last Admin: 10/22/16 03:54 Dose: 2 mg Insulin Aspart (Novolog Vial Sliding Scale -) 1 vial SQ ACHS [facility] [place] PRN Reason: Protocol Last Admin: 10/22/16 06:28 Dose: Not Given Insulin Aspart (Novolog Mix 70/30 Vial) 35 units SQ BIDAC [facility] [place] Last Admin: 10/22/16 06:27 Dose: 35 units Lactulose (Cephulac (Oral Use)) 20 gm PO BID [facility] [place] Last Admin: 10/22/16 10:30 Dose: 20 gm Losartan Potassium (Cozaar -) 25 mg PO DAILY [facility] [place] Last Admin: 10/22/16 10:30 Dose: 25 mg Miscellaneous (Duragesic Patch Waste) 1 each MC PRN PRN PRN Reason: PAIN Last Admin: 10/20/16 22:33 Dose: 1 each Prednisone (Deltasone -) 40 mg PO DAILY [facility] [place] Last Admin: 10/22/16 10:30 Dose: 40 mg Roflumilast (Daliresp -) 500 mcg PO DAILY [facility] [place] Last Admin: 10/22/16 10:30 Dose: 500 mcg Senna (Senna -) 1 tab PO HS [facility] [place] Last Admin: 10/21/16 22:34 Dose: 1 tab Sitagliptin Phosphate (Januvia -) 25 mg PO DAILY@0700 [facility] [place] Last Admin: 10/22/16 06:27 Dose: 25 mg Sodium Chloride ([place] Nasal [place] -) 2 spray NS TID PRN PRN Reason: NASAL CONGESTION Tamsulosin HCl (Flomax -) 0.4 mg PO DAILY@0830 [facility] [place] Last Admin: 10/21/16 08:18 Dose: 0.4 mg Terazosin HCl (Hytrin -) 5 mg PO HS [facility] [place] Last Admin: 10/21/16 22:35 Dose: 5 mg Tiotropium [place] (Spiriva -) 1 puff IH DAILY [facility] [place] Last Admin: 10/22/16 10:31 Dose: 1 puff Zolpidem Tartrate (Ambien -) 5 mg PO HS PRN PRN Reason: INSOMNIA - Objective Vital Signs: Vital Signs Temperature 98.2 F 10/21/16 22:00 Pulse Rate 85 10/22/16 10:45 Respiratory Rate 18 10/21/16 22:00 Blood Pressure 142/80 10/21/16 22:00 O2 Sat by Pulse Oximetry (%) 95 10/22/16 10:45 Constitutional: Yes: Anxious Cardiovascular: Yes: Regular Rate and Rhythm, S1, S2 Respiratory: Yes: Rhonchi Gastrointestinal: Yes: Normal Bowel Sounds, Soft Edema: Yes Neurological: Yes: Alert, Oriented Labs: CBC, BMP 10/22/16 09:00 10/22/16 09:00 INR, PTT INR 1.00 (0.82-1.09) 10/14/16 17:19 Problem List - Problems (1) Leg edema Assessment/Plan: renal lasix iv today monitor lytes Code(s): R60.0 - LOCALIZED EDEMA Qualifiers: Laterality: bilateral Qualified Code(s): R60.0 - Localized edema (2) COPD exacerbation Assessment/Plan: pulm steroids po prednsione 30mg symbicort daliresp spiriva paitent doesnot want turdoza oxygen [place] Code(s): J44.1 - CHRONIC OBSTRUCTIVE PULMONARY DISEASE W (ACUTE) EXACERBATION (3) HTN (hypertension) Assessment/Plan: cozaar cardizem Code(s): I10 - ESSENTIAL (PRIMARY) HYPERTENSION Qualifiers: Hypertension type: essential hypertension Qualified Code(s): I10 - Essential (primary) hypertension (4) Hypertriglyceridemia Assessment/Plan: lpoid Code(s): E78.1 - PURE HYPERGLYCERIDEMIA (5) BPH (benign prostatic hyperplasia) Assessment/Plan: hytrin and flomax Code(s): N40.0 - BENIGN PROSTATIC HYPERPLASIA WITHOUT LOWER URINRY TRACT SYMP (6) Chronic back pain greater than 3 months duration Assessment/Plan: fentanyl and oxycodone Code(s): M54.9 - DORSALGIA, UNSPECIFIED G89.29 - OTHER CHRONIC PAIN (7) Diabetes mellitus Assessment/Plan: insulin nad januva Code(s): E11.9 - TYPE 2 DIABETES MELLITUS WITHOUT COMPLICATIONS Qualifiers: Diabetes mellitus type: type 2 Diabetes mellitus complication status: without complication Diabetes mellitus care home insulin use: with care home use Qualified Code(s): E11.9 - Type 2 diabetes mellitus without complications
--- NOTE | 2016-10-22 14:43 | PN ---
Progress Note, Physician History of Present Illness: Pt seen and examined at bedside. He is awake and alert. He complains of shortness of breath. - Current Medication List Current Medications: Active Medications Acetaminophen (Tylenol -) 650 mg PO Q6H PRN PRN Reason: FEVER OR PAIN Albuterol Sulfate (Ventolin 0.083% Nebulizer Soln -) 1 amp NEB Q4H PRN PRN Reason: SHORT OF BREATH/WHEEZING Last Admin: 10/22/16 13:42 Dose: 1 amp Allopurinol (Zyloprim -) 100 mg PO DAILY [facility] Last Admin: 10/22/16 10:31 Dose: 100 mg Aspirin (Asa -) 81 mg PO DAILY [facility] Last Admin: 10/22/16 10:29 Dose: 81 mg Budesonide/Formoterol Fumarate (Symbicort 160/4.5mcg -) 2 puff IH BID [facility] Last Admin: 10/22/16 10:34 Dose: 2 puff Buspirone HCl (Buspar -) 5 mg PO BID [facility] Last Admin: 10/22/16 10:30 Dose: Not Given Diltiazem HCl (Cardizem Cd -) 120 mg PO DAILY [facility] Last Admin: 10/22/16 10:30 Dose: 120 mg Docusate Sodium (Colace -) 100 mg PO Q8H PRN PRN Reason: CONSTIPATION Last Admin: 10/20/16 21:49 Dose: 100 mg Ferrous Sulfate (Feosol -) 325 mg PO DAILY [facility] Last Admin: 10/22/16 10:30 Dose: 325 mg Furosemide (Lasix Injection -) 80 mg IVPUSH DAILY [facility] Last Admin: 10/22/16 10:31 Dose: 80 mg Gemfibrozil (Lopid -) 600 mg PO BID@0700,1630 [facility] Last Admin: 10/22/16 06:27 Dose: 600 mg Hydromorphone HCl (Dilaudid Injection -) 2 mg IM Q4H PRN PRN Reason: PAIN Last Admin: 10/22/16 13:58 Dose: 2 mg Insulin Aspart (Novolog Vial Sliding Scale -) 1 vial SQ ACHS [facility] PRN Reason: Protocol Last Admin: 10/22/16 11:59 Dose: Not Given Insulin Aspart (Novolog Mix 70/30 Vial) 25 units SQ BIDAC [facility] Lactulose (Cephulac (Oral Use)) 20 gm PO BID [facility] Last Admin: 10/22/16 10:30 Dose: 20 gm Losartan Potassium (Cozaar -) 25 mg PO DAILY [facility] Last Admin: 10/22/16 10:30 Dose: 25 mg Miscellaneous (Duragesic Patch Waste) 1 each MC PRN PRN PRN Reason: PAIN Last Admin: 10/20/16 22:33 Dose: 1 each Prednisone (Deltasone -) 40 mg PO DAILY [facility] Last Admin: 10/22/16 10:30 Dose: 40 mg Roflumilast (Daliresp -) 500 mcg PO DAILY [facility] Last Admin: 10/22/16 10:30 Dose: 500 mcg Senna (Senna -) 1 tab PO HS [facility] Last Admin: 10/21/16 22:34 Dose: 1 tab Sitagliptin Phosphate (Januvia -) 25 mg PO DAILY@0700 [facility] Last Admin: 10/22/16 06:27 Dose: 25 mg Sodium Chloride ([place] Nasal [place] -) 2 spray NS TID PRN PRN Reason: NASAL CONGESTION Tamsulosin HCl (Flomax -) 0.4 mg PO DAILY@0830 [facility] Last Admin: 10/21/16 08:18 Dose: 0.4 mg Terazosin HCl (Hytrin -) 5 mg PO HS [facility] Last Admin: 10/21/16 22:35 Dose: 5 mg Tiotropium [place] (Spiriva -) 1 puff IH DAILY [facility] Last Admin: 10/22/16 10:31 Dose: 1 puff Zolpidem Tartrate (Ambien -) 5 mg PO HS PRN PRN Reason: INSOMNIA - Objective Vital Signs: Vital Signs Temperature 98.2 F 10/21/16 22:00 Pulse Rate 85 10/22/16 10:45 Respiratory Rate 18 10/21/16 22:00 Blood Pressure 142/80 10/21/16 22:00 O2 Sat by Pulse Oximetry (%) 95 10/22/16 10:45 Constitutional: Yes: Calm HENT: Yes: Atraumatic Neck: Yes: Supple Cardiovascular: Yes: S1, S2 Respiratory: Yes: Wheezes Gastrointestinal: Yes: Soft Genitourinary: Yes: WNL Musculoskeletal: Yes: WNL Edema: Yes Edema: LLE: 2+, RLE: 2+ Integumentary: Yes: Venous Stasis Changes Neurological: Yes: Oriented Psychiatric: Yes: Oriented Labs: CBC, BMP 10/22/16 09:00 10/22/16 09:00 INR, PTT INR 1.00 (0.82-1.09) 10/14/16 17:19 Problem List - Problems (1) COPD exacerbation Code(s): J44.1 - CHRONIC OBSTRUCTIVE PULMONARY DISEASE W (ACUTE) EXACERBATION (2) Chronic respiratory failure with hypoxia Code(s): J96.11 - CHRONIC RESPIRATORY FAILURE WITH HYPOXIA (3) Diabetes mellitus, insulin dependent (IDDM), uncontrolled Code(s): E10.65 - TYPE 1 DIABETES MELLITUS WITH HYPERGLYCEMIA Qualifiers: Diabetes mellitus complication status: without complication Qualified Code(s): E10.9 - Type 1 diabetes mellitus without complications (4) HTN (hypertension) Code(s): I10 - ESSENTIAL (PRIMARY) HYPERTENSION Qualifiers: Hypertension type: essential hypertension Qualified Code(s): I10 - Essential (primary) hypertension (5) Shortness of breath Code(s): R06.02 - SHORTNESS OF BREATH (6) Anemia Code(s): D64.9 - ANEMIA, UNSPECIFIED Qualifiers: Anemia type: unspecified type Qualified Code(s): D64.9 - Anemia, unspecified (7) CHF (congestive heart failure) Code(s): I50.9 - HEART FAILURE, UNSPECIFIED Qualifiers: Congestive heart failure type: diastolic (8) CKD (chronic kidney disease) Code(s): N18.9 - CHRONIC KIDNEY DISEASE, UNSPECIFIED Qualifiers: Chronic kidney disease stage: unspecified stage Qualified Code(s): N18.9 - Chronic kidney disease, unspecified (9) COPD (chronic obstructive pulmonary disease) Code(s): J44.9 - CHRONIC OBSTRUCTIVE PULMONARY DISEASE, UNSPECIFIED Qualifiers : COPD type: chronic bronchitis (10) GERD (gastroesophageal reflux disease) Code(s): K21.9 - GASTRO-ESOPHAGEAL REFLUX DISEASE WITHOUT ESOPHAGITIS Assessment/Plan Current Medications Generic Name Dose Route Start Last Admin Trade Name Freq PRN Reason Stop Dose Admin Acetaminophen 650 mg 10/14/16 21:18 Tylenol - PO Q6H PRN FEVER OR PAIN Albuterol Sulfate 1 amp 10/19/16 12:22 10/22/16 13:42 Ventolin 0.083% Nebulizer Soln - NEB 1 amp Q4H PRN Administration SHORT OF BREATH/WHEEZING Allopurinol 100 mg 10/15/16 10:00 10/22/16 10:31 Zyloprim - PO 100 mg DAILY [facility] Administration Aspirin 81 mg 10/15/16 10:00 10/22/16 10:29 Asa - PO 81 mg DAILY [facility] Administration Budesonide/Formoterol Fumarate 2 puff 10/14/16 22:00 10/22/16 10:34 Symbicort 160/4.5mcg - IH 2 puff BID [facility] Administration Buspirone HCl 5 mg 10/14/16 22:00 10/22/16 10:30 Buspar - PO Not Given BID [facility] Diltiazem HCl 120 mg 10/15/16 10:00 10/22/16 10:30 Cardizem Cd - PO 120 mg DAILY [facility] Administration Docusate Sodium 100 mg 10/14/16 21:18 10/20/16 21:49 Colace - PO 100 mg Q8H PRN Administration CONSTIPATION Ferrous Sulfate 325 mg 10/15/16 10:00 10/22/16 10:30 Feosol - PO 325 mg DAILY [facility] Administration Furosemide 80 mg 10/21/16 10:00 10/22/16 10:31 Lasix Injection - IVPUSH 80 mg DAILY [facility] Administration Gemfibrozil 600 mg 10/15/16 07:00 10/22/16 06:27 Lopid - PO 600 mg BID@0700,1630 [facility] Administration Hydromorphone HCl 2 mg 10/21/16 13:08 10/22/16 13:58 Dilaudid Injection - IM 2 mg Q4H PRN Administration PAIN Insulin Aspart 1 vial 10/14/16 22:00 10/22/16 11:59 Novolog Vial Sliding Scale - SQ Not Given ACHS [facility] Protocol Insulin Aspart 25 units 10/22/16 11:55 Novolog Mix 70/30 Vial SQ BIDAC [facility] Lactulose 20 gm 10/14/16 22:00 10/22/16 10:30 Cephulac (Oral Use) PO 20 gm BID [facility] Administration Losartan Potassium 25 mg 10/15/16 10:00 10/22/16 10:30 Cozaar - PO 25 mg DAILY [facility] Administration Miscellaneous 1 each 10/14/16 21:18 10/20/16 22:33 Duragesic Patch Waste MC 1 each PRN PRN Administration PAIN Prednisone 40 mg 10/16/16 10:00 10/22/16 10:30 Deltasone - PO 40 mg DAILY [facility] Administration Roflumilast 500 mcg 10/15/16 10:00 10/22/16 10:30 Daliresp - PO 500 mcg DAILY [facility] Administration Senna 1 tab 10/14/16 22:00 10/21/16 22:34 Senna - PO 1 tab HS [facility] Administration Sitagliptin Phosphate 25 mg 10/15/16 07:00 10/22/16 06:27 Januvia - PO 25 mg DAILY@0700 [facility] Administration Sodium Chloride 2 spray 10/14/16 21:18 [place] Nasal [place] - NS TID PRN NASAL CONGESTION Tamsulosin HCl 0.4 mg 10/15/16 08:30 10/21/16 08:18 Flomax - PO 0.4 mg DAILY@0830 [facility] Administration Terazosin HCl 5 mg 10/14/16 22:00 10/21/16 22:35 Hytrin - PO 5 mg HS [facility] Administration Tiotropium [place] 1 puff 10/16/16 10:00 10/22/16 10:31 Spiriva - IH 1 puff DAILY [facility] Administration Zolpidem Tartrate 5 mg 10/21/16 10:34 Ambien - PO HS PRN INSOMNIA Impression 1. CKD 2. DM 3. HTN 4. CHF 5. COPD 6. fluid overload 7. BPH 8. insomnia 9. narcotic dependence Plan - cont with lasix - monitor renal function daily while on IV lasix - cont with cozaar for now - outp follow up, pt will see Dr Nelson - pt has chronic lower extremity edema - his baseline creatinine is about 1.7 from last outpt visit - will follow Dr Nathan
[2016-10-22] MEDS: TAMSULOSIN HCL 0.4 MG CAP.ER.24H (FP) PO SCH (15:01)
--- NOTE | 2016-10-22 15:17 | PN ---
Progress Note (short form) - Note Progress Note: No acute events overnight. Appears clinically better. Less SOB. No CP. No fever. Intake & Output 10/19/16 10/20/16 10/21/16 10/22/16 23:59 23:59 23:59 23:59 Intake Total 100 880 400 0 Output Total 525 Balance 100 880 400 -525 Weight 232 lb 14.4 oz 229 lb 9.6 oz Last Vital Signs Temp Pulse Resp BP Pulse Ox 98.2 F 85 18 142/80 95 10/21/16 22:00 10/22/16 10:45 10/21/16 22:00 10/21/16 22:00 10/22/16 10:45 Active Medications Acetaminophen (Tylenol -) 650 mg PO Q6H PRN PRN Reason: FEVER OR PAIN Albuterol Sulfate (Ventolin 0.083% Nebulizer Soln -) 1 amp NEB Q4H PRN PRN Reason: SHORT OF BREATH/WHEEZING Last Admin: 10/22/16 13:42 Dose: 1 amp Allopurinol (Zyloprim -) 100 mg PO DAILY [facility] Last Admin: 10/22/16 10:31 Dose: 100 mg Aspirin (Asa -) 81 mg PO DAILY [facility] Last Admin: 10/22/16 10:29 Dose: 81 mg Budesonide/Formoterol Fumarate (Symbicort 160/4.5mcg -) 2 puff IH BID [facility] Last Admin: 10/22/16 10:34 Dose: 2 puff Buspirone HCl (Buspar -) 5 mg PO BID [facility] Last Admin: 10/22/16 10:30 Dose: Not Given Diltiazem HCl (Cardizem Cd -) 120 mg PO DAILY [facility] Last Admin: 10/22/16 10:30 Dose: 120 mg Docusate Sodium (Colace -) 100 mg PO Q8H PRN PRN Reason: CONSTIPATION Last Admin: 10/20/16 21:49 Dose: 100 mg Ferrous Sulfate (Feosol -) 325 mg PO DAILY [facility] Last Admin: 10/22/16 10:30 Dose: 325 mg Furosemide (Lasix Injection -) 80 mg IVPUSH DAILY [facility] Last Admin: 10/22/16 10:31 Dose: 80 mg Gemfibrozil (Lopid -) 600 mg PO BID@0700,1630 [facility] Last Admin: 10/22/16 06:27 Dose: 600 mg Hydromorphone HCl (Dilaudid Injection -) 2 mg IM Q4H PRN PRN Reason: PAIN Last Admin: 10/22/16 13:58 Dose: 2 mg Insulin Aspart (Novolog Vial Sliding Scale -) 1 vial SQ ACHS [facility] PRN Reason: Protocol Last Admin: 10/22/16 11:59 Dose: Not Given Insulin Aspart (Novolog Mix 70/30 Vial) 25 units SQ BIDAC [facility] Lactulose (Cephulac (Oral Use)) 20 gm PO BID [facility] Last Admin: 10/22/16 10:30 Dose: 20 gm Losartan Potassium (Cozaar -) 25 mg PO DAILY [facility] Last Admin: 10/22/16 10:30 Dose: 25 mg Miscellaneous (Duragesic Patch Waste) 1 each MC PRN PRN PRN Reason: PAIN Last Admin: 10/20/16 22:33 Dose: 1 each Prednisone (Deltasone -) 40 mg PO DAILY [facility] Last Admin: 10/22/16 10:30 Dose: 40 mg Roflumilast (Daliresp -) 500 mcg PO DAILY [facility] Last Admin: 10/22/16 10:30 Dose: 500 mcg Senna (Senna -) 1 tab PO HS [facility] Last Admin: 10/21/16 22:34 Dose: 1 tab Sitagliptin Phosphate (Januvia -) 25 mg PO DAILY@0700 [facility] Last Admin: 10/22/16 06:27 Dose: 25 mg Sodium Chloride ([place] Nasal [place] -) 2 spray NS TID PRN PRN Reason: NASAL CONGESTION Tamsulosin HCl (Flomax -) 0.4 mg PO DAILY@0830 [facility] Last Admin: 10/22/16 15:01 Dose: 0.4 mg Terazosin HCl (Hytrin -) 5 mg PO HS [facility] Last Admin: 10/21/16 22:35 Dose: 5 mg Tiotropium [place] (Spiriva -) 1 puff IH DAILY [facility] Last Admin: 10/22/16 10:31 Dose: 1 puff Zolpidem Tartrate (Ambien -) 5 mg PO HS PRN PRN Reason: INSOMNIA Constitutional: Yes: NAD Eyes: Yes: Conjunctiva Clear, EOM Intact HENT: Yes: Atraumatic, Normocephalic Neck: Yes: Supple, Trachea Midline Cardiovascular: Yes: Regular Rate and Rhythm Respiratory: Yes: Rhonchi, no wheeze ...Clubbing: No Gastrointestinal: Yes: Normal Bowel Sounds, Soft, Abdomen, Obese. No: Tenderness Edema: Yes Neurological: Yes: Alert, Oriented Laboratory Results - last 24 hr 10/21/16 10/21/16 10/22/16 16:39 23:58 06:26 WBC RBC Hgb Hct MCV MCHC RDW Plt Count MPV Neutrophils % Lymphocytes % Monocytes % Eosinophils % Basophils % Sodium Potassium Chloride Carbon Dioxide Anion Gap BUN Creatinine Creat Clearance w eGFR POC Glucometer 247 175 112 Random Glucose Calcium Total Bilirubin AST ALT Alkaline Phosphatase Total Protein Albumin 10/22/16 10/22/16 10/22/16 09:00 09:00 11:51 WBC 7.8 RBC 3.03 L Hgb 9.2 L Hct 28.0 L MCV 92.3 MCHC 32.8 RDW 15.8 Plt Count 207 MPV 9.4 Neutrophils % 75.8 Lymphocytes % 15.0 Monocytes % 8.8 Eosinophils % 0.4 Basophils % 0.0 Sodium 145 Potassium 3.6 Chloride 105 Carbon Dioxide 31 Anion Gap 9 BUN 43 H Creatinine 1.4 H Creat Clearance w eGFR 49.82 POC Glucometer 68 Random Glucose 60 L D Calcium 8.9 Total Bilirubin 0.3 AST 16 ALT 27 Alkaline Phosphatase 43 L Total Protein 6.2 L Albumin 3.1 L Problem List - Problems (1) Acute on chronic diastolic (congestive) heart failure Code(s): I50.33 - ACUTE ON CHRONIC DIASTOLIC (CONGESTIVE) HEART FAILURE (2) COPD (chronic obstructive pulmonary disease) Code(s): J44.9 - CHRONIC OBSTRUCTIVE PULMONARY DISEASE, UNSPECIFIED Qualifiers : COPD type: chronic bronchitis (3) Chronic respiratory failure with hypoxia Code(s): J96.11 - CHRONIC RESPIRATORY FAILURE WITH HYPOXIA (4) Atelectasis Code(s): J98.11 - ATELECTASIS (5) Diabetes mellitus, insulin dependent (IDDM), uncontrolled Code(s): E10.65 - TYPE 1 DIABETES MELLITUS WITH HYPERGLYCEMIA Qualifiers: Diabetes mellitus complication status: without complication Qualified Code(s): E10.9 - Type 1 diabetes mellitus without complications (6) HTN (hypertension) Code(s): I10 - ESSENTIAL (PRIMARY) HYPERTENSION Qualifiers: Hypertension type: essential hypertension Qualified Code(s): I10 - Essential (primary) hypertension Assessment/Plan Acute on Chronic LV Diastolic Heart Failure COPD Atelectasis Recent Pneumonia Chronic Hypoxic Respiratory Failure CKD HTN DM Hyperlipidemia - Lasix - monitor urine output, creatinine - I/Os, daily weights (weights appear off) - inhaled bronchodilators - O2 to keep SpO2 >90% - Prednisone - Monitor off ABX - DVT prophylaxis - D/C planning Dr Amaral
[2016-10-22] MEDS ORDERED: INSULIN (NOVOLOG) ASPART 100 UNITS/ML 10ML VIAL ONE ×2 (17:59→21:17)
[2016-10-22] MEDS: SENNOSIDES 8.6MG TABLET (FP) PO SCH (21:22)
[2016-10-22] MEDS: TERAZOSIN HCL 5 MG CAPSULE PO SCH (21:22)
[2016-10-23] MEDS: HYDROmorphone HCL CARPU-JECT 2 MG/1 ML DISP.SYRIN IM PRN (05:11)
[2016-10-23] MEDS: INSULIN SLIDING SCALE (NOVOLOG) 1 VIAL SQ SCH ×4 (06:29→21:38)
[2016-10-23] MEDS: GEMFIBROZIL 600 MG TABLET (FP) PO SCH ×2 (06:29→16:42)
[2016-10-23] MEDS: sitaGLIPtin PHOSPHATE 25 MG TABLET (FP) PO SCH (06:29)
[2016-10-23] MEDS: TAMSULOSIN HCL 0.4 MG CAP.ER.24H (FP) PO SCH (08:21)
[2016-10-23] MEDS: INSULIN (NOVOLOG MIX 70/30) 100 UNITS/ML MDV SQ SCH ×2 (08:46→18:08)
--- NOTE | 2016-10-23 09:18 | PN ---
Progress Note, Physician Chief Complaint: Events noted Persistent shortness of breath - improving (+) pedal edema persists Overall clinically improving and less congested History of Present Illness: Patient was seen and examined. Awake and alert. Chart was reviewed. Denies chest pain or palpitations. Still getting IV Lasix - Current Medication List Current Medications: Active Medications Acetaminophen (Tylenol -) 650 mg PO Q6H PRN PRN Reason: FEVER OR PAIN Albuterol Sulfate (Ventolin 0.083% Nebulizer Soln -) 1 amp NEB Q4H PRN PRN Reason: SHORT OF BREATH/WHEEZING Last Admin: 10/22/16 21:52 Dose: 1 amp Allopurinol (Zyloprim -) 100 mg PO DAILY [facility] Last Admin: 10/22/16 10:31 Dose: 100 mg Aspirin (Asa -) 81 mg PO DAILY [facility] Last Admin: 10/22/16 10:29 Dose: 81 mg Budesonide/Formoterol Fumarate (Symbicort 160/4.5mcg -) 2 puff IH BID [facility] Last Admin: 10/22/16 21:23 Dose: 2 puff Buspirone HCl (Buspar -) 5 mg PO BID [facility] Last Admin: 10/22/16 21:23 Dose: Not Given Diltiazem HCl (Cardizem Cd -) 120 mg PO DAILY [facility] Last Admin: 10/22/16 10:30 Dose: 120 mg Docusate Sodium (Colace -) 100 mg PO Q8H PRN PRN Reason: CONSTIPATION Last Admin: 10/20/16 21:49 Dose: 100 mg Ferrous Sulfate (Feosol -) 325 mg PO DAILY [facility] Last Admin: 10/22/16 10:30 Dose: 325 mg Furosemide (Lasix Injection -) 80 mg IVPUSH DAILY [facility] Last Admin: 10/22/16 10:31 Dose: 80 mg Gemfibrozil (Lopid -) 600 mg PO BID@0700,1630 [facility] Last Admin: 10/23/16 06:29 Dose: 600 mg Hydromorphone HCl (Dilaudid Injection -) 2 mg IM Q4H PRN PRN Reason: PAIN Last Admin: 10/23/16 05:11 Dose: 2 mg Insulin Aspart (Novolog Vial Sliding Scale -) 1 vial SQ ACHS [facility] PRN Reason: Protocol Last Admin: 10/23/16 06:29 Dose: Not Given Insulin Aspart (Novolog Mix 70/30 Vial) 25 units SQ BIDAC [facility] Last Admin: 10/23/16 08:46 Dose: 25 units Lactulose (Cephulac (Oral Use)) 20 gm PO BID [facility] Last Admin: 10/22/16 21:22 Dose: 20 gm Losartan Potassium (Cozaar -) 25 mg PO DAILY [facility] Last Admin: 10/22/16 10:30 Dose: 25 mg Miscellaneous (Duragesic Patch Waste) 1 each MC PRN PRN PRN Reason: PAIN Last Admin: 10/20/16 22:33 Dose: 1 each Prednisone (Deltasone -) 40 mg PO DAILY [facility] Last Admin: 10/22/16 10:30 Dose: 40 mg Roflumilast (Daliresp -) 500 mcg PO DAILY [facility] Last Admin: 10/22/16 10:30 Dose: 500 mcg Senna (Senna -) 1 tab PO HS [facility] Last Admin: 10/22/16 21:22 Dose: 1 tab Sitagliptin Phosphate (Januvia -) 25 mg PO DAILY@0700 [facility] Last Admin: 10/23/16 06:29 Dose: 25 mg Sodium Chloride ([place] Nasal [place] -) 2 spray NS TID PRN PRN Reason: NASAL CONGESTION Tamsulosin HCl (Flomax -) 0.4 mg PO DAILY@0830 [facility] Last Admin: 10/23/16 08:21 Dose: 0.4 mg Terazosin HCl (Hytrin -) 5 mg PO HS [facility] Last Admin: 10/22/16 21:22 Dose: 5 mg Tiotropium [place] (Spiriva -) 1 puff IH DAILY [facility] Last Admin: 10/22/16 10:31 Dose: 1 puff Zolpidem Tartrate (Ambien -) 5 mg PO HS PRN PRN Reason: INSOMNIA - Objective Vital Signs: Vital Signs Temperature 98.5 F 10/23/16 06:37 Pulse Rate 84 10/23/16 06:37 Respiratory Rate 20 10/23/16 06:37 Blood Pressure 108/64 10/23/16 06:37 O2 Sat by Pulse Oximetry (%) 95 10/22/16 21:00 Neck: Yes: Supple Cardiovascular: Yes: Regular Rate and Rhythm, S1, S2 Respiratory: Yes: Diminished, Rhonchi Gastrointestinal: Yes: Normal Bowel Sounds, Soft, Abdomen, Obese. No: Tenderness Edema: Yes Edema: LLE: 1+, RLE: 1+ Additional Findings/Remarks: - Review of Systems Constitutional: denies: Chills, Fever Cardiovascular: reports: Shortness of Breath. denies: Chest Pain, Palpitations Respiratory: reports: Cough. denies: Hemoptysis, Orthopnea, PND Gastrointestinal: denies: Abdominal Pain, Constipation, Diarrhea, Melena, Nausea , Rectal Bleeding, Vomiting Musculoskeletal: reports: Joint Pain Neurological: denies: Dizziness, denies: Headache, Seizure, Syncope Labs: CBC, BMP 10/22/16 09:00 10/22/16 09:00 Problem List - Problems (1) Acute on chronic diastolic (congestive) heart failure Code(s): I50.33 - ACUTE ON CHRONIC DIASTOLIC (CONGESTIVE) HEART FAILURE (2) COPD exacerbation Code(s): J44.1 - CHRONIC OBSTRUCTIVE PULMONARY DISEASE W (ACUTE) EXACERBATION (3) Chronic respiratory failure with hypoxia Code(s): J96.11 - CHRONIC RESPIRATORY FAILURE WITH HYPOXIA (4) HTN (hypertension) Code(s): I10 - ESSENTIAL (PRIMARY) HYPERTENSION Qualifiers: Hypertension type: essential hypertension Qualified Code(s): I10 - Essential (primary) hypertension (5) Hyperlipidemia LDL goal < 100 Code(s): E78.5 - HYPERLIPIDEMIA, UNSPECIFIED (6) Hypertriglyceridemia Code(s): E78.1 - PURE HYPERGLYCERIDEMIA (7) Shortness of breath Code(s): R06.02 - SHORTNESS OF BREATH (8) Anemia Code(s): D64.9 - ANEMIA, UNSPECIFIED Qualifiers: Anemia type: unspecified type Qualified Code(s): D64.9 - Anemia, unspecified (9) CKD (chronic kidney disease) Code(s): N18.9 - CHRONIC KIDNEY DISEASE, UNSPECIFIED Qualifiers: Chronic kidney disease stage: unspecified stage Qualified Code(s): N18.9 - Chronic kidney disease, unspecified (10) Diabetes mellitus Code(s): E11.9 - TYPE 2 DIABETES MELLITUS WITHOUT COMPLICATIONS Qualifiers: Diabetes mellitus type: type 2 Diabetes mellitus complication status: without complication 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 Acute on chronic LV diastolic heart failure 2. COPD with chronic hypoxic respiratory failure - improving 3. Type 2 diabetes mellitus 4. Hypercholesterolemia 5. Anemia 6. CKD 7. HTN PLAN: 1. IV diuresis with monitoring renal function and electrolytes - consider switching to PO tomorrow 2. Continue ASA 81 mg QD, Lopid 600 mg BID, Cardizem CD 120 mg QD, Cozaar 25 mg QD and Hytrin 5 mg QHS 3. Bronchodilator, O2 to keep SpO2 >90%, steroid taper, Daliresp and antibiotic coverage Further plans are to follow Nicholas Silver MD
[2016-10-23] MEDS: ALBUTEROL SO4 0.083% IH SOL 2.5 MG/3 ML VIAL.NEB. NEB PRN (09:45)
[2016-10-23] MEDS ORDERED: PT OWN MED DRAWER 7, Y5N ONE ×2 (09:50→21:10)
[2016-10-23] MEDS: ASPIRIN 81 MG CHEWABLE TABLETS PO SCH (10:05)
[2016-10-23] MEDS: busPIRone HCL 5 MG TABLET PO SCH ×2 (10:05→21:31)
[2016-10-23] MEDS: LACTULOSE 20 GM/30 ML UDC (FOR ORAL USE ONLY) PO SCH ×2 (10:06→21:38)
[2016-10-23] MEDS: ROFLUMILAST 500 MCG TABLET PO SCH (10:06)
[2016-10-23] MEDS: LOSARTAN POTASSIUM 25 MG TABLET PO SCH (10:06)
--- NOTE | 2016-10-23 10:06 | PN ---
Progress Note (short form) - Note Progress Note: PULMONARY Breathing continues to improve. Able to sleep in bed last night rather than in a recliner. complaining that nebulizer treatments not frequent enough. Last Vital Signs Temp Pulse Resp BP Pulse Ox 98.5 F 84 20 108/64 95 10/23/16 06:37 10/23/16 06:37 10/23/16 06:37 10/23/16 06:37 10/22/16 21:00 Gen: NAD at rest, ambulating in hallways Heart: RRR Lung: decreased breath sounds at the bases, no wheezes appreciated Abd: soft, nontender Ext: + edema CBC, BMP 10/22/16 09:00 10/22/16 09:00 Active Medications Acetaminophen (Tylenol -) 650 mg PO Q6H PRN PRN Reason: FEVER OR PAIN Albuterol Sulfate (Ventolin 0.083% Nebulizer Soln -) 1 amp NEB Q4H PRN PRN Reason: SHORT OF BREATH/WHEEZING Last Admin: 10/23/16 09:45 Dose: 1 amp Allopurinol (Zyloprim -) 100 mg PO DAILY [facility] Last Admin: 10/22/16 10:31 Dose: 100 mg Aspirin (Asa -) 81 mg PO DAILY [facility] Last Admin: 10/22/16 10:29 Dose: 81 mg Budesonide/Formoterol Fumarate (Symbicort 160/4.5mcg -) 2 puff IH BID [facility] Last Admin: 10/22/16 21:23 Dose: 2 puff Buspirone HCl (Buspar -) 5 mg PO BID [facility] Last Admin: 10/22/16 21:23 Dose: Not Given Diltiazem HCl (Cardizem Cd -) 120 mg PO DAILY [facility] Last Admin: 10/22/16 10:30 Dose: 120 mg Docusate Sodium (Colace -) 100 mg PO Q8H PRN PRN Reason: CONSTIPATION Last Admin: 10/20/16 21:49 Dose: 100 mg Ferrous Sulfate (Feosol -) 325 mg PO DAILY [facility] Last Admin: 10/22/16 10:30 Dose: 325 mg Furosemide (Lasix Injection -) 80 mg IVPUSH DAILY [facility] Last Admin: 10/22/16 10:31 Dose: 80 mg Gemfibrozil (Lopid -) 600 mg PO BID@0700,1630 [facility] Last Admin: 10/23/16 06:29 Dose: 600 mg Hydromorphone HCl (Dilaudid Injection -) 2 mg IM Q4H PRN PRN Reason: PAIN Last Admin: 10/23/16 05:11 Dose: 2 mg Insulin Aspart (Novolog Vial Sliding Scale -) 1 vial SQ ACHS [facility] PRN Reason: Protocol Last Admin: 10/23/16 06:29 Dose: Not Given Insulin Aspart (Novolog Mix 70/30 Vial) 25 units SQ BIDAC [facility] Last Admin: 10/23/16 08:46 Dose: 25 units Lactulose (Cephulac (Oral Use)) 20 gm PO BID [facility] Last Admin: 10/22/16 21:22 Dose: 20 gm Losartan Potassium (Cozaar -) 25 mg PO DAILY [facility] Last Admin: 10/22/16 10:30 Dose: 25 mg Miscellaneous (Duragesic Patch Waste) 1 each MC PRN PRN PRN Reason: PAIN Last Admin: 10/20/16 22:33 Dose: 1 each Prednisone (Deltasone -) 40 mg PO DAILY [facility] Last Admin: 10/22/16 10:30 Dose: 40 mg Roflumilast (Daliresp -) 500 mcg PO DAILY [facility] Last Admin: 10/22/16 10:30 Dose: 500 mcg Senna (Senna -) 1 tab PO HS [facility] Last Admin: 10/22/16 21:22 Dose: 1 tab Sitagliptin Phosphate (Januvia -) 25 mg PO DAILY@0700 [facility] Last Admin: 10/23/16 06:29 Dose: 25 mg Sodium Chloride ([place] Nasal [place] -) 2 spray NS TID PRN PRN Reason: NASAL CONGESTION Tamsulosin HCl (Flomax -) 0.4 mg PO DAILY@0830 [facility] Last Admin: 10/23/16 08:21 Dose: 0.4 mg Terazosin HCl (Hytrin -) 5 mg PO HS [facility] Last Admin: 10/22/16 21:22 Dose: 5 mg Tiotropium [place] (Spiriva -) 1 puff IH DAILY [facility] Last Admin: 10/22/16 10:31 Dose: 1 puff Zolpidem Tartrate (Ambien -) 5 mg PO HS PRN PRN Reason: INSOMNIA A/P Acute COPD Exacerbation Acute on Chronic LV Diastolic Heart Failure Chronic Hypoxic Respiratory Failure HTN DM Hypercholesterolemia CKD - prednisone taper - inhaled bronchodilators - O2 to keep SpO2 >90% - lasix - monitor urine output, creatinine - DVT prophylaxis - can d/c from pulmonary standpoint Problem List - Problems (1) Acute on chronic diastolic (congestive) heart failure Code(s): I50.33 - ACUTE ON CHRONIC DIASTOLIC (CONGESTIVE) HEART FAILURE (2) COPD (chronic obstructive pulmonary disease) Code(s): J44.9 - CHRONIC OBSTRUCTIVE PULMONARY DISEASE, UNSPECIFIED Qualifiers : COPD type: chronic bronchitis (3) Chronic respiratory failure with hypoxia Code(s): J96.11 - CHRONIC RESPIRATORY FAILURE WITH HYPOXIA (4) Atelectasis Code(s): J98.11 - ATELECTASIS (5) Diabetes mellitus, insulin dependent (IDDM), uncontrolled Code(s): E10.65 - TYPE 1 DIABETES MELLITUS WITH HYPERGLYCEMIA Qualifiers: Diabetes mellitus complication status: without complication Qualified Code(s): E10.9 - Type 1 diabetes mellitus without complications (6) HTN (hypertension) Code(s): I10 - ESSENTIAL (PRIMARY) HYPERTENSION Qualifiers: Hypertension type: essential hypertension Qualified Code(s): I10 - Essential (primary) hypertension
[2016-10-23] MEDS: predniSONE 20 MG TABLET (UD) PO SCH (10:07)
[2016-10-23] MEDS: TIOTROPIUM BROMIDE 18 MCG/INH (DEVICE W/ 5 CAPSULES) IH SCH (10:07)
[2016-10-23] MEDS: FERROUS SO4 325 MG TABLET (FP) PO SCH (10:07)
[2016-10-23] MEDS: ALLOPURINOL 100 MG TABLET (FP) PO SCH (10:07)
[2016-10-23] MEDS: FUROSEMIDE 40 MG/4 ML INJECTABLE VIAL IVPUSH SCH (10:08)
[2016-10-23] MEDS: BUDESONIDE/FORMETEROL FUMARATE 160/4.5 mcg INHALER IH SCH ×2 (10:08→21:38)
[2016-10-23] MEDS ORDERED: INSULIN (NOVOLOG MIX 70/30) 100 UNITS/ML MDV SQ ONE (10:21)
[2016-10-23] MEDS ORDERED: HYDROmorphone HCL 2 MG TABLET PO PRN (11:18)
[2016-10-23] MEDS: ALBUTEROL SO4 0.083% IH SOL 2.5 MG/3 ML VIAL.NEB. NEB SCH ×2 (12:08→18:22)
--- NOTE | 2016-10-23 13:34 | PN ---
Progress Note, Physician Chief Complaint: bgm in 40's got orange juice now bgm 89 iv lasix for leg edema last nite he finally slept in [place] [employer] bed was sleeping previously on reclinier chair - Current Medication List Current Medications: Active Medications Acetaminophen (Tylenol -) 650 mg PO Q6H PRN PRN Reason: FEVER OR PAIN Albuterol Sulfate (Ventolin 0.083% Nebulizer Soln -) 1 amp NEB QIDR [facility] Allopurinol (Zyloprim -) 100 mg PO DAILY [facility] Last Admin: 10/23/16 10:07 Dose: 100 mg Aspirin (Asa -) 81 mg PO DAILY [facility] Last Admin: 10/23/16 10:05 Dose: 81 mg Budesonide/Formoterol Fumarate (Symbicort 160/4.5mcg -) 2 puff IH BID [facility] Last Admin: 10/23/16 10:08 Dose: 2 puff Buspirone HCl (Buspar -) 5 mg PO BID [facility] Last Admin: 10/23/16 10:05 Dose: 5 mg Diltiazem HCl (Cardizem Cd -) 120 mg PO DAILY [facility] Last Admin: 10/23/16 10:06 Dose: 120 mg Docusate Sodium (Colace -) 100 mg PO Q8H PRN PRN Reason: CONSTIPATION Last Admin: 10/20/16 21:49 Dose: 100 mg Ferrous Sulfate (Feosol -) 325 mg PO DAILY [facility] Last Admin: 10/23/16 10:07 Dose: 325 mg Furosemide (Lasix Injection -) 80 mg IVPUSH DAILY [facility] Last Admin: 10/23/16 10:08 Dose: 80 mg Gemfibrozil (Lopid -) 600 mg PO BID@0700,1630 [facility] Last Admin: 10/23/16 06:29 Dose: 600 mg Hydromorphone HCl (Dilaudid -) 2 mg PO HS PRN PRN Reason: PAIN Insulin Aspart (Novolog Vial Sliding Scale -) 1 vial SQ ACHS [facility] PRN Reason: Protocol Last Admin: 10/23/16 11:29 Dose: Not Given Lactulose (Cephulac (Oral Use)) 20 gm PO BID [facility] Last Admin: 10/23/16 10:06 Dose: 20 gm Losartan Potassium (Cozaar -) 25 mg PO DAILY [facility] Last Admin: 10/23/16 10:06 Dose: 25 mg Miscellaneous (Duragesic Patch Waste) 1 each MC PRN PRN PRN Reason: PAIN Last Admin: 10/20/16 22:33 Dose: 1 each Prednisone (Deltasone -) 40 mg PO DAILY [facility] Last Admin: 10/23/16 10:07 Dose: 40 mg Roflumilast (Daliresp -) 500 mcg PO DAILY [facility] Last Admin: 10/23/16 10:06 Dose: 500 mcg Senna (Senna -) 1 tab PO HS [facility] Last Admin: 10/22/16 21:22 Dose: 1 tab Sodium Chloride ([place] Nasal [place] -) 2 spray NS TID PRN PRN Reason: NASAL CONGESTION Tamsulosin HCl (Flomax -) 0.4 mg PO DAILY@0830 [facility] Last Admin: 10/23/16 08:21 Dose: 0.4 mg Terazosin HCl (Hytrin -) 5 mg PO [facility] Last Admin: 10/22/16 21:22 Dose: 5 mg Tiotropium [place] (Spiriva -) 1 puff IH DAILY [facility] Last Admin: 10/23/16 10:07 Dose: 1 puff Zolpidem Tartrate (Ambien -) 5 mg PO HS PRN PRN Reason: INSOMNIA - Objective Vital Signs: Vital Signs Temperature 97.1 F L 10/23/16 09:00 Pulse Rate 92 H 10/23/16 09:00 Respiratory Rate 20 10/23/16 09:00 Blood Pressure 124/74 10/23/16 09:00 O2 Sat by Pulse Oximetry (%) 97 10/23/16 09:00 Constitutional: Yes: Calm Cardiovascular: Yes: Regular Rate and Rhythm, S1, S2 Respiratory: Yes: Rhonchi (scattered) Gastrointestinal: Yes: Normal Bowel Sounds, Soft Edema: Yes (improving) Neurological: Yes: Alert, Oriented Labs: CBC, BMP 10/22/16 09:00 10/22/16 09:00 INR, PTT INR 1.00 (0.82-1.09) 10/14/16 17:19 Problem List - Problems (1) Leg edema Assessment/Plan: improving with iv lasix renal on board lasix iv today and tommorow per cardiology monitor lytes Code(s): R60.0 - LOCALIZED EDEMA Qualifiers: Laterality: bilateral Qualified Code(s): R60.0 - Localized edema (2) COPD exacerbation Assessment/Plan: pulm steroids po prednsione 30mg symbicort daliresp spiriva paitent doesnot want turdoza oxygen [place] Code(s): J44.1 - CHRONIC OBSTRUCTIVE PULMONARY DISEASE W (ACUTE) EXACERBATION (3) HTN (hypertension) Assessment/Plan: kwame cortez Code(s): I10 - ESSENTIAL (PRIMARY) HYPERTENSION Qualifiers: Hypertension type: essential hypertension Qualified Code(s): I10 - Essential (primary) hypertension (4) Hypertriglyceridemia Assessment/Plan: lopoid Code(s): E78.1 - PURE HYPERGLYCERIDEMIA (5) BPH (benign prostatic hyperplasia) Assessment/Plan: hytrin and flomax Code(s): N40.0 - BENIGN PROSTATIC HYPERPLASIA WITHOUT LOWER URINRY TRACT SYMP (6) Chronic back pain greater than 3 months duration Assessment/Plan: fentanyl and oxycodone Code(s): M54.9 - DORSALGIA, UNSPECIFIED G89.29 - OTHER CHRONIC PAIN (7) Diabetes mellitus Assessment/Plan: patient not eating as well at home so bgm dropping wants chase sausage yogurt banana insulin 15 units stop januvia Code(s): E11.9 - TYPE 2 DIABETES MELLITUS WITHOUT COMPLICATIONS Qualifiers: Diabetes mellitus type: type 2 Diabetes mellitus complication status: without complication Diabetes mellitus mcc insulin use: with medical terminologist use Qualified Code(s): E11.9 - Type 2 diabetes mellitus without complications Assessment/Plan d.w current medical condition
[2016-10-23] MEDS ORDERED: HYDROmorphone HCL CARPU-JECT 2 MG/1 ML DISP.SYRIN IVPB PRN (14:49)
[2016-10-23] MEDS: HYDROmorphone HCL CARPU-JECT 2 MG/1 ML DISP.SYRIN IVPB PRN ×2 (14:58→22:45)
--- NOTE | 2016-10-23 15:41 | PN ---
Progress Note, Physician History of Present Illness: Pt seen and examined at bedside. He is awake and alert. He feels that the wheezing is improved. - Current Medication List Current Medications: Active Medications Acetaminophen (Tylenol -) 650 mg PO Q6H PRN PRN Reason: FEVER OR PAIN Albuterol Sulfate (Ventolin 0.083% Nebulizer Soln -) 1 amp NEB QIDR [facility] Last Admin: 10/23/16 12:08 Dose: 1 amp Allopurinol (Zyloprim -) 100 mg PO DAILY [facility] Last Admin: 10/23/16 10:07 Dose: 100 mg Aspirin (Asa -) 81 mg PO DAILY [facility] Last Admin: 10/23/16 10:05 Dose: 81 mg Budesonide/Formoterol Fumarate (Symbicort 160/4.5mcg -) 2 puff IH BID [facility] Last Admin: 10/23/16 10:08 Dose: 2 puff Buspirone HCl (Buspar -) 5 mg PO BID [facility] Last Admin: 10/23/16 10:05 Dose: 5 mg Diltiazem HCl (Cardizem Cd -) 120 mg PO DAILY [facility] Last Admin: 10/23/16 10:06 Dose: 120 mg Docusate Sodium (Colace -) 100 mg PO Q8H PRN PRN Reason: CONSTIPATION Last Admin: 10/20/16 21:49 Dose: 100 mg Ferrous Sulfate (Feosol -) 325 mg PO DAILY [facility] Last Admin: 10/23/16 10:07 Dose: 325 mg Furosemide (Lasix Injection -) 80 mg IVPUSH DAILY [facility] Last Admin: 10/23/16 10:08 Dose: 80 mg Gemfibrozil (Lopid -) 600 mg PO BID@0700,1630 [facility] Last Admin: 10/23/16 06:29 Dose: 600 mg Hydromorphone HCl (Dilaudid -) 2 mg PO HS PRN PRN Reason: PAIN Hydromorphone HCl (Dilaudid Injection -) 2 mg IVPB Q4H PRN Last Admin: 10/23/16 14:58 Dose: 2 mg Insulin Aspart (Novolog Mix 70/30 Vial) 15 units SQ BIDAC [facility] Insulin Aspart (Novolog Vial Sliding Scale -) 1 vial SQ ACHS [facility] PRN Reason: Protocol Lactulose (Cephulac (Oral Use)) 20 gm PO BID [facility] Last Admin: 10/23/16 10:06 Dose: 20 gm Losartan Potassium (Cozaar -) 25 mg PO DAILY [facility] Last Admin: 10/23/16 10:06 Dose: 25 mg Miscellaneous (Duragesic Patch Waste) 1 each MC PRN PRN PRN Reason: PAIN Last Admin: 10/20/16 22:33 Dose: 1 each Prednisone (Deltasone -) 30 mg PO DAILY [facility] Roflumilast (Daliresp -) 500 mcg PO DAILY [facility] Last Admin: 10/23/16 10:06 Dose: 500 mcg Senna (Senna -) 1 tab PO HS [facility] Last Admin: 10/22/16 21:22 Dose: 1 tab Sodium Chloride ([place]al [place] -) 2 spray NS TID PRN PRN Reason: NASAL CONGESTION Tamsulosin HCl (Flomax -) 0.4 mg PO DAILY@0830 [facility] Last Admin: 10/23/16 08:21 Dose: 0.4 mg Terazosin HCl (Hytrin -) 5 mg PO HS [facility] Last Admin: 10/22/16 21:22 Dose: 5 mg Tiotropium [place] (Spiriva -) 1 puff IH DAILY [facility] Last Admin: 10/23/16 10:07 Dose: 1 puff Zolpidem Tartrate (Ambien -) 5 mg PO HS PRN PRN Reason: INSOMNIA - Objective Vital Signs: Vital Signs Temperature 97.1 F L 10/23/16 09:00 Pulse Rate 92 H 10/23/16 09:00 Respiratory Rate 20 10/23/16 09:00 Blood Pressure 124/74 10/23/16 09:00 O2 Sat by Pulse Oximetry (%) 97 10/23/16 09:00 Constitutional: Yes: Calm Eyes: Yes: Conjunctiva Clear HENT: Yes: Atraumatic Neck: Yes: Supple Cardiovascular: Yes: S1, S2 Respiratory: Yes: On Nasal O2 Gastrointestinal: Yes: Soft Genitourinary: Yes: WNL Edema: Yes Edema: LLE: 1+, RLE: 1+ Neurological: Yes: Oriented Psychiatric: Yes: Oriented Labs: CBC, BMP 10/22/16 09:00 10/22/16 09:00 INR, PTT INR 1.00 (0.82-1.09) 10/14/16 17:19 Problem List - Problems (1) COPD exacerbation Code(s): Lucho44.1 - CHRONIC OBSTRUCTIVE PULMONARY DISEASE W (ACUTE) EXACERBATION (2) Chronic respiratory failure with hypoxia Code(s): J96.11 - CHRONIC RESPIRATORY FAILURE WITH HYPOXIA (3) Diabetes mellitus, insulin dependent (IDDM), uncontrolled Code(s): E10.65 - TYPE 1 DIABETES MELLITUS WITH HYPERGLYCEMIA Qualifiers: Diabetes mellitus complication status: without complication Qualified Code(s): E10.9 - Type 1 diabetes mellitus without complications (4) HTN (hypertension) Code(s): I10 - ESSENTIAL (PRIMARY) HYPERTENSION Qualifiers: Hypertension type: essential hypertension Qualified Code(s): I10 - Essential (primary) hypertension (5) Shortness of breath Code(s): R06.02 - SHORTNESS OF BREATH (6) Anemia Code(s): D64.9 - ANEMIA, UNSPECIFIED Qualifiers: Anemia type: unspecified type Qualified Code(s): D64.9 - Anemia, unspecified (7) CHF (congestive heart failure) Code(s): I50.9 - HEART FAILURE, UNSPECIFIED Qualifiers: Congestive heart failure type: diastolic (8) CKD (chronic kidney disease) Code(s): N18.9 - CHRONIC KIDNEY DISEASE, UNSPECIFIED Qualifiers: Chronic kidney disease stage: unspecified stage Qualified Code(s): N18.9 - Chronic kidney disease, unspecified (9) COPD (chronic obstructive pulmonary disease) Code(s): J44.9 - CHRONIC OBSTRUCTIVE PULMONARY DISEASE, UNSPECIFIED Qualifiers : COPD type: chronic bronchitis (10) GERD (gastroesophageal reflux disease) Code(s): K21.9 - GASTRO-ESOPHAGEAL REFLUX DISEASE WITHOUT ESOPHAGITIS Assessment/Plan Current Medications Generic Name Dose Route Start Last Admin Trade Name Freq PRN Reason Stop Dose Admin Acetaminophen 650 mg 10/14/16 21:18 Tylenol - PO Q6H PRN FEVER OR PAIN Albuterol Sulfate 1 amp 10/23/16 12:00 10/23/16 12:08 Ventolin 0.083% Nebulizer Soln - NEB 1 amp QIDR [facility] Administration Allopurinol 100 mg 10/15/16 10:00 10/23/16 10:07 Zyloprim - PO 100 mg DAILY [facility] Administration Aspirin 81 mg 10/15/16 10:00 10/23/16 10:05 Asa - PO 81 mg DAILY [facility] Administration Budesonide/Formoterol Fumarate 2 puff 02/12/17 22:00 10/23/16 10:08 Symbicort 160/4.5mcg - IH 2 puff BID [facility] Administration Buspirone HCl 5 mg 10/14/16 22:00 10/23/16 10:05 Buspar - PO 5 mg BID [facility] Administration Diltiazem HCl 120 mg 10/15/16 10:00 10/23/16 10:06 Cardizem Cd - PO 120 mg DAILY [facility] Administration Docusate Sodium 100 mg 10/14/16 21:18 10/20/16 21:49 Colace - PO 100 mg Q8H PRN Administration CONSTIPATION Ferrous Sulfate 325 mg 10/15/16 10:00 10/23/16 10:07 Feosol - PO 325 mg DAILY [facility] Administration Furosemide 80 mg 10/21/16 10:00 10/23/16 10:08 Lasix Injection - IVPUSH 80 mg DAILY [facility] Administration Gemfibrozil 600 mg 10/15/16 07:00 10/23/16 06:29 Lopid - PO 600 mg BID@0700,1630 [facility] Administration Hydromorphone HCl 2 mg 10/23/16 11:18 Dilaudid - PO HS PRN PAIN Hydromorphone HCl 2 mg 10/23/16 14:48 10/23/16 14:58 Dilaudid Injection - IVPB 2 mg Q4H PRN Administration Insulin Aspart 15 units 10/23/16 13:32 Novolog Mix 70/30 Vial SQ BIDAC [facility] Insulin Aspart 1 vial 10/23/16 14:04 Novolog Vial Sliding Scale - SQ ACHS [facility] Protocol Lactulose 20 gm 10/14/16 22:00 10/23/16 10:06 Cephulac (Oral Use) PO 20 gm BID [facility] Administration Losartan Potassium 25 mg 10/15/16 10:00 10/23/16 10:06 Cozaar - PO 25 mg DAILY [facility] Administration Miscellaneous 1 each 10/14/16 21:18 10/20/16 22:33 Duragesic Patch Waste MC 1 each PRN PRN Administration PAIN Prednisone 30 mg 10/23/16 14:04 Deltasone - PO DAILY [facility] Roflumilast 500 mcg 10/15/16 10:00 10/23/16 10:06 Daliresp - PO 500 mcg DAILY [facility] Administration Senna 1 tab 10/14/16 22:00 10/22/16 21:22 Senna - PO 1 tab HS [facility] Administration Sodium Chloride 2 spray 10/14/16 21:18 [place] Nasal [place] - NS TID PRN NASAL CONGESTION Tamsulosin HCl 0.4 mg 10/15/16 08:30 10/23/16 08:21 Flomax - PO 0.4 mg DAILY@0830 [facility] Administration Terazosin HCl 5 mg 10/14/16 22:00 10/22/16 21:22 Hytrin - PO 5 mg HS [facility] Administration Tiotropium [place] 1 puff 10/16/16 10:00 10/23/16 10:07 Spiriva - IH 1 puff DAILY [facility] Administration Zolpidem Tartrate 5 mg 10/21/16 10:34 Ambien - PO HS PRN INSOMNIA Impression 1. CKD 2. DM 3. HTN 4. CHF 5. COPD 6. fluid overload 7. BPH 8. insomnia 9. narcotic dependence Plan - check bmp in am - cont with jamil, cardio input appreciated - cont with kwame for now - outp follow up, pt will see Dr Nelson - pt has chronic lower extremity edema, appears mildly improved today - his baseline creatinine is about 1.7 - will follow Dr Nathan
[2016-10-23] MEDS: SENNOSIDES 8.6MG TABLET (FP) PO SCH (21:37)
[2016-10-23] MEDS: TERAZOSIN HCL 5 MG CAPSULE PO SCH (21:38)
[2016-10-23] MEDS ORDERED: ALBUTEROL SO4 0.083% IH SOL 2.5 MG/3 ML VIAL.NEB. NEB ONE (22:15)
[2016-10-24] MEDS: ALBUTEROL SO4 0.083% IH SOL 2.5 MG/3 ML VIAL.NEB. NEB SCH ×5 (01:07→23:00)
[2016-10-24] MEDS: GEMFIBROZIL 600 MG TABLET (FP) PO SCH ×2 (06:41→16:32)
[2016-10-24] MEDS: INSULIN SLIDING SCALE (NOVOLOG) 1 VIAL SQ SCH ×4 (07:00→22:32)
--- NOTE | 2016-10-24 07:17 | PN ---
Progress Note, Physician History of Present Illness: FEELS BETTER - Current Medication List Current Medications: Active Medications Acetaminophen (Tylenol -) 650 mg PO Q6H PRN PRN Reason: FEVER OR PAIN Albuterol Sulfate (Ventolin 0.083% Nebulizer Soln -) 1 amp NEB QIDR [facility] Last Admin: 10/24/16 05:00 Dose: 1 amp Allopurinol (Zyloprim -) 100 mg PO DAILY [facility] Last Admin: 10/23/16 10:07 Dose: 100 mg Aspirin (Asa -) 81 mg PO DAILY [facility] Last Admin: 10/23/16 10:05 Dose: 81 mg Budesonide/Formoterol Fumarate (Symbicort 160/4.5mcg -) 2 puff IH BID [facility] Last Admin: 10/23/16 21:38 Dose: 2 puff Buspirone HCl (Buspar -) 5 mg PO BID [facility] Last Admin: 10/23/16 21:31 Dose: Not Given Diltiazem HCl (Cardizem Cd -) 120 mg PO DAILY [facility] Last Admin: 10/23/16 10:06 Dose: 120 mg Docusate Sodium (Colace -) 100 mg PO Q8H PRN PRN Reason: CONSTIPATION Last Admin: 10/20/16 21:49 Dose: 100 mg Ferrous Sulfate (Feosol -) 325 mg PO DAILY [facility] Last Admin: 10/23/16 10:07 Dose: 325 mg Furosemide (Lasix Injection -) 80 mg IVPUSH DAILY [facility] Last Admin: 10/23/16 10:08 Dose: 80 mg Gemfibrozil (Lopid -) 600 mg PO BID@0700,1630 [facility] Last Admin: 10/24/16 06:41 Dose: 600 mg Hydromorphone HCl (Dilaudid -) 2 mg PO HS PRN PRN Reason: PAIN Insulin Aspart (Novolog Mix 70/30 Vial) 15 units SQ BIDAC [facility] Last Admin: 10/23/16 18:08 Dose: 15 units Insulin Aspart (Novolog Vial Sliding Scale -) 1 vial SQ ACHS [facility] PRN Reason: Protocol Last Admin: 10/24/16 07:00 Dose: 4 units Lactulose (Cephulac (Oral Use)) 20 gm PO BID [facility] Last Admin: 10/23/16 21:38 Dose: 20 gm Losartan Potassium (Cozaar -) 25 mg PO DAILY [facility] Last Admin: 10/23/16 10:06 Dose: 25 mg Miscellaneous (Duragesic Patch Waste) 1 each MC PRN PRN PRN Reason: PAIN Last Admin: 10/20/16 22:33 Dose: 1 each Prednisone (Deltasone -) 30 mg PO DAILY [facility] Roflumilast (Daliresp -) 500 mcg PO DAILY [facility] Last Admin: 10/23/16 10:06 Dose: 500 mcg Senna (Senna -) 1 tab PO HS [facility] Last Admin: 10/23/16 21:37 Dose: 1 tab Sodium Chloride ([place] -) 2 spray NS TID PRN PRN Reason: NASAL CONGESTION Tamsulosin HCl (Flomax -) 0.4 mg PO DAILY@0830 [facility] Last Admin: 10/23/16 08:21 Dose: 0.4 mg Terazosin HCl (Hytrin -) 5 mg PO [facility] Last Admin: 10/23/16 21:38 Dose: 5 mg Tiotropium [place] (Spiriva -) 1 puff IH DAILY [facility] Last Admin: 10/23/16 10:07 Dose: 1 puff Zolpidem Tartrate (Ambien -) 5 mg PO HS PRN PRN Reason: INSOMNIA - Objective Vital Signs: Vital Signs Temperature 97.8 F 10/23/16 16:30 Pulse Rate 94 H 10/23/16 22:00 Respiratory Rate 22 10/23/16 22:00 Blood Pressure 156/75 10/23/16 22:00 O2 Sat by Pulse Oximetry (%) 97 10/23/16 21:00 Cardiovascular: Yes: S1, S2 Respiratory: Yes: Diminished, Rhonchi Gastrointestinal: Yes: Normal Bowel Sounds, Soft Edema: Yes Labs: CBC, BMP 10/22/16 09:00 10/22/16 09:00 INR, PTT INR 1.00 (0.82-1.09) 10/14/16 17:19 Assessment/Plan - Problems (1) Leg edema Assessment/Plan: improving with iv lasix renal on board lasix iv today per cardiology monitor lytes Code(s): R60.0 - LOCALIZED EDEMA Qualifiers: Laterality: bilateral Qualified Code(s): R60.0 - Localized edema (2) COPD exacerbation Assessment/Plan: pulm steroids po prednsione 30mg symbicort daliresp spiriva paitent does not want turdoza oxygen [place] Code(s): J44.1 - CHRONIC OBSTRUCTIVE PULMONARY DISEASE W (ACUTE) EXACERBATION (3) HTN (hypertension) Assessment/Plan: kwame cortez Code(s): I10 - ESSENTIAL (PRIMARY) HYPERTENSION Qualifiers: Hypertension type: essential hypertension Qualified Code(s): I10 - Essential (primary) hypertension (4) Hypertriglyceridemia Assessment/Plan: lopoid Code(s): E78.1 - PURE HYPERGLYCERIDEMIA (5) BPH (benign prostatic hyperplasia) Assessment/Plan: hytrin and flomax Code(s): N40.0 - BENIGN PROSTATIC HYPERPLASIA WITHOUT LOWER URINRY TRACT SYMP (6) Chronic back pain greater than 3 months duration Assessment/Plan: fentanyl and oxycodone Code(s): M54.9 - DORSALGIA, UNSPECIFIED G89.29 - OTHER CHRONIC PAIN (7) Diabetes mellitus Assessment/Plan: patient not eating as well at home so bgm dropping wants chase sausage yogurt banana insulin 15 units stop januvia Code(s): E11.9 - TYPE 2 DIABETES MELLITUS WITHOUT COMPLICATIONS Qualifiers: Diabetes mellitus type: type 2 Diabetes mellitus complication status: without complication Diabetes mellitus intermodal dispatcher insulin use: with intermodal dispatcher use Qualified Code(s): E11.9 - Type 2 diabetes mellitus without complications
[2016-10-24] MEDS ORDERED: HYDROmorphone HCL CARPU-JECT 2 MG/1 ML DISP.SYRIN ONE (07:38)
[2016-10-24] MEDS: HYDROmorphone HCL CARPU-JECT 2 MG/1 ML DISP.SYRIN IVPB PRN ×2 (07:48→16:04)
[2016-10-24] MEDS ORDERED: PT OWN MED DRAWER 7, Y5N ONE ×3 (08:35→22:14)
[2016-10-24] MEDS: TAMSULOSIN HCL 0.4 MG CAP.ER.24H (FP) PO SCH (08:36)
[2016-10-24 08:37] LABS: CALCIUM 8.7 mg/dL (8.5-10.1); CREATININE 1.6 mg/dL (0.7-1.3)
[2016-10-24] MEDS: INSULIN (NOVOLOG MIX 70/30) 100 UNITS/ML MDV SQ SCH ×2 (08:52→18:05)
[2016-10-24] MEDS ORDERED: INSULIN (NOVOLOG MIX 70/30) 100 UNITS/ML MDV SQ ONE ×2 (08:54→18:10)
[2016-10-24] MEDS: busPIRone HCL 5 MG TABLET PO SCH ×2 (10:29→22:30)
[2016-10-24] MEDS: ASPIRIN 81 MG CHEWABLE TABLETS PO SCH (10:29)
[2016-10-24] MEDS: ROFLUMILAST 500 MCG TABLET PO SCH (10:30)
[2016-10-24] MEDS: LOSARTAN POTASSIUM 25 MG TABLET PO SCH (10:30)
[2016-10-24] MEDS: LACTULOSE 20 GM/30 ML UDC (FOR ORAL USE ONLY) PO SCH ×2 (10:30→22:27)
[2016-10-24] MEDS: predniSONE 20 MG TABLET (UD) PO SCH (10:31)
[2016-10-24] MEDS: ALLOPURINOL 100 MG TABLET (FP) PO SCH (10:33)
[2016-10-24] MEDS: TIOTROPIUM BROMIDE 18 MCG/INH (DEVICE W/ 5 CAPSULES) IH SCH (10:33)
[2016-10-24] MEDS: FERROUS SO4 325 MG TABLET (FP) PO SCH (10:33)
[2016-10-24] MEDS: BUDESONIDE/FORMETEROL FUMARATE 160/4.5 mcg INHALER IH SCH ×2 (10:33→22:31)
[2016-10-24] MEDS: FUROSEMIDE 40 MG/4 ML INJECTABLE VIAL IVPUSH SCH (10:34)
--- NOTE | 2016-10-24 11:45 | PN ---
Progress Note (short form) - Note Progress Note: PULMONARY AMBULATING IN [place] APPEARS STABLE VSS ANICTERIC SCATTERED CRACKLES/RHONCHI S1S2 OBESE 2+ EDEMA LOWER EXT LABS/MEDS/IMAGING/NOTES REVIEWED Acute on Chronic LV Diastolic Heart Failure COPD Atelectasis Recent Pneumonia Chronic Hypoxic Respiratory Failure CKD HTN DM Hyperlipidemia - lasix changed back to IVP - monitor urine output, creatinine - I/Os, daily weights - inhaled bronchodilators - O2 to keep SpO2 >90% - prednisone - incentive spirometry - PO as tolerated - DVT prophylaxis - chest pt - monitor blood sugars - discharge planning Jered VALE MD
--- NOTE | 2016-10-24 13:00 | PN ---
Progress Note, Physician History of Present Illness: Pt seen and examined at bedside. He complains of wheezing. - Current Medication List Current Medications: Active Medications Acetaminophen (Tylenol -) 650 mg PO Q6H PRN PRN Reason: FEVER OR PAIN Albuterol Sulfate (Ventolin 0.083% Nebulizer Soln -) 1 amp NEB QIDR [facility] Last Admin: 10/24/16 12:02 Dose: 1 amp Allopurinol (Zyloprim -) 100 mg PO DAILY [facility] Last Admin: 10/24/16 10:33 Dose: 100 mg Aspirin (Asa -) 81 mg PO DAILY [facility] Last Admin: 10/24/16 10:29 Dose: 81 mg Budesonide/Formoterol Fumarate (Symbicort 160/4.5mcg -) 2 puff IH BID [facility] Last Admin: 10/24/16 10:33 Dose: 2 puff Buspirone HCl (Buspar -) 5 mg PO BID [facility] Last Admin: 10/24/16 10:29 Dose: 5 mg Diltiazem HCl (Cardizem Cd -) 120 mg PO DAILY [facility] Last Admin: 10/24/16 10:30 Dose: 120 mg Docusate Sodium (Colace -) 100 mg PO Q8H PRN PRN Reason: CONSTIPATION Last Admin: 10/20/16 21:49 Dose: 100 mg Ferrous Sulfate (Feosol -) 325 mg PO DAILY [facility] Last Admin: 10/24/16 10:33 Dose: 325 mg Furosemide (Lasix Injection -) 80 mg IVPUSH DAILY [facility] Last Admin: 10/24/16 10:34 Dose: 80 mg Gemfibrozil (Lopid -) 600 mg PO BID@0700,1630 [facility] Last Admin: 10/24/16 06:41 Dose: 600 mg Hydromorphone HCl (Dilaudid -) 2 mg PO HS PRN PRN Reason: PAIN Hydromorphone HCl (Dilaudid Injection -) 2 mg IVPB BID PRN Last Admin: 10/24/16 07:48 Dose: 2 mg Insulin Aspart (Novolog Mix 70/30 Vial) 15 units SQ BIDAC [facility] Last Admin: 10/24/16 08:52 Dose: 15 units Insulin Aspart (Novolog Vial Sliding Scale -) 1 vial SQ ACHS [facility] PRN Reason: Protocol Last Admin: 10/24/16 11:42 Dose: Not Given Lactulose (Cephulac (Oral Use)) 20 gm PO BID [facility] Last Admin: 10/24/16 10:30 Dose: 20 gm Losartan Potassium (Cozaar -) 25 mg PO DAILY [facility] Last Admin: 10/24/16 10:30 Dose: 25 mg Miscellaneous (Duragesic Patch Waste) 1 each MC PRN PRN PRN Reason: PAIN Last Admin: 10/20/16 22:33 Dose: 1 each Prednisone (Deltasone -) 30 mg PO DAILY [facility] Last Admin: 10/24/16 10:31 Dose: 30 mg Roflumilast (Daliresp -) 500 mcg PO DAILY [facility] Last Admin: 10/24/16 10:30 Dose: 500 mcg Senna (Senna -) 1 tab PO HS [facility] Last Admin: 10/23/16 21:37 Dose: 1 tab Sodium Chloride ([place] Nasal [place] -) 2 spray NS TID PRN PRN Reason: NASAL CONGESTION Tamsulosin HCl (Flomax -) 0.4 mg PO DAILY@0830 [facility] Last Admin: 10/24/16 08:36 Dose: 0.4 mg Terazosin HCl (Hytrin -) 5 mg PO HS [facility] Last Admin: 10/23/16 21:38 Dose: 5 mg Tiotropium [place] (Spiriva -) 1 puff IH DAILY [facility] Last Admin: 10/24/16 10:33 Dose: 1 puff Zolpidem Tartrate (Ambien -) 5 mg PO HS PRN PRN Reason: INSOMNIA - Objective Vital Signs: Vital Signs Temperature 98.1 F 10/24/16 10:46 Pulse Rate 82 10/24/16 10:46 Respiratory Rate 16 10/24/16 10:46 Blood Pressure 123/71 10/24/16 10:46 O2 Sat by Pulse Oximetry (%) 95 10/24/16 09:00 Constitutional: Yes: Calm Eyes: Yes: Conjunctiva Clear HENT: Yes: Atraumatic Neck: Yes: Supple Cardiovascular: Yes: S1, S2 Respiratory: Yes: On Nasal O2, Wheezes Gastrointestinal: Yes: Soft, Abdomen, Obese Genitourinary: Yes: WNL Musculoskeletal: Yes: WNL Edema: Yes Edema: LLE: 1+, RLE: 1+ Neurological: Yes: Oriented Psychiatric: Yes: Oriented Labs: CBC, BMP 10/22/16 09:00 10/24/16 06:20 INR, PTT INR 1.00 (0.82-1.09) 10/14/16 17:19 - ....Imaging Chest X-ray: Report Reviewed Problem List - Problems (1) COPD exacerbation Code(s): J44.1 - CHRONIC OBSTRUCTIVE PULMONARY DISEASE W (ACUTE) EXACERBATION (2) Chronic respiratory failure with hypoxia Code(s): J96.11 - CHRONIC RESPIRATORY FAILURE WITH HYPOXIA (3) Diabetes mellitus, insulin dependent (IDDM), uncontrolled Code(s): E10.65 - TYPE 1 DIABETES MELLITUS WITH HYPERGLYCEMIA Qualifiers: Diabetes mellitus complication status: without complication Qualified Code(s): E10.9 - Type 1 diabetes mellitus without complications (4) HTN (hypertension) Code(s): I10 - ESSENTIAL (PRIMARY) HYPERTENSION Qualifiers: Hypertension type: essential hypertension Qualified Code(s): I10 - Essential (primary) hypertension (5) Shortness of breath Code(s): R06.02 - SHORTNESS OF BREATH (6) Anemia Code(s): D64.9 - ANEMIA, UNSPECIFIED Qualifiers: Anemia type: unspecified type Qualified Code(s): D64.9 - Anemia, unspecified (7) CHF (congestive heart failure) Code(s): I50.9 - HEART FAILURE, UNSPECIFIED Qualifiers: Congestive heart failure type: diastolic (8) CKD (chronic kidney disease) Code(s): N18.9 - CHRONIC KIDNEY DISEASE, UNSPECIFIED Qualifiers: Chronic kidney disease stage: unspecified stage Qualified Code(s): N18.9 - Chronic kidney disease, unspecified (9) COPD (chronic obstructive pulmonary disease) Code(s): J44.9 - CHRONIC OBSTRUCTIVE PULMONARY DISEASE, UNSPECIFIED Qualifiers : COPD type: chronic bronchitis (10) GERD (gastroesophageal reflux disease) Code(s): K21.9 - GASTRO-ESOPHAGEAL REFLUX DISEASE WITHOUT ESOPHAGITIS Assessment/Plan Current Medications Generic Name Dose Route Start Last Admin Trade Name Freq PRN Reason Stop Dose Admin Acetaminophen 650 mg 10/14/16 21:18 Tylenol - PO Q6H PRN FEVER OR PAIN Albuterol Sulfate 1 amp 10/23/16 12:00 10/24/16 12:02 Ventolin 0.083% Nebulizer Soln - NEB 1 amp QIDR [facility] Administration Allopurinol 100 mg 10/15/16 10:00 10/24/16 10:33 Zyloprim - PO 100 mg DAILY [facility] Administration Aspirin 81 mg 10/15/16 10:00 10/24/16 10:29 Asa - PO 81 mg DAILY [facility] Administration Budesonide/Formoterol Fumarate 2 puff 10/14/16 22:00 10/24/16 10:33 Symbicort 160/4.5mcg - IH 2 puff BID [facility] Administration Buspirone HCl 5 mg 10/14/16 22:00 10/24/16 10:29 Buspar - PO 5 mg BID [facility] Administration Diltiazem HCl 120 mg 10/15/16 10:00 10/24/16 10:30 Cardizem Cd - PO 120 mg DAILY [facility] Administration Docusate Sodium 100 mg 10/14/16 21:18 10/20/16 21:49 Colace - PO 100 mg Q8H PRN Administration CONSTIPATION Ferrous Sulfate 325 mg 10/15/16 10:00 10/24/16 10:33 Feosol - PO 325 mg DAILY [facility] Administration Furosemide 80 mg 10/21/16 10:00 10/24/16 10:34 Lasix Injection - IVPUSH 80 mg DAILY [facility] Administration Gemfibrozil 600 mg 10/15/16 07:00 10/24/16 06:41 Lopid - PO 600 mg BID@0700,1630 [facility] Administration Hydromorphone HCl 2 mg 10/23/16 11:18 Dilaudid - PO HS PRN PAIN Hydromorphone HCl 2 mg 10/24/16 10:00 10/24/16 07:48 Dilaudid Injection - IVPB 2 mg BID PRN Administration Insulin Aspart 15 units 10/23/16 13:32 10/24/16 08:52 Novolog Mix 70/30 Vial SQ 15 units BIDAC [facility] Administration Insulin Aspart 1 vial 10/23/16 14:04 10/24/16 11:42 Novolog Vial Sliding Scale - SQ Not Given ACHS [facility] Protocol Lactulose 20 gm 10/14/16 22:00 10/24/16 10:30 Cephulac (Oral Use) PO 20 gm BID [facility] Administration Losartan Potassium 25 mg 10/15/16 10:00 10/24/16 10:30 Cozaar - PO 25 mg DAILY [facility] Administration Miscellaneous 1 each 10/14/16 21:18 10/20/16 22:33 Duragesic Patch Waste MC 1 each PRN PRN Administration PAIN Prednisone 30 mg 10/23/16 14:04 10/24/16 10:31 Deltasone - PO 30 mg DAILY [facility] Administration Roflumilast 500 mcg 10/15/16 10:00 10/24/16 10:30 Daliresp - PO 500 mcg DAILY [facility] Administration Senna 1 tab 10/14/16 22:00 10/23/16 21:37 Senna - PO 1 tab HS [facility] Administration Sodium Chloride 2 spray 10/14/16 21:18 [place] Nasal [place] - NS TID PRN NASAL CONGESTION Tamsulosin HCl 0.4 mg 10/15/16 08:30 10/24/16 08:36 Flomax - PO 0.4 mg DAILY@0830 [facility] Administration Terazosin HCl 5 mg 10/14/16 22:00 10/23/16 21:38 Hytrin - PO 5 mg HS [facility] Administration Tiotropium [place] 1 puff 10/16/16 10:00 10/24/16 10:33 Spiriva - IH 1 puff DAILY [facility] Administration Zolpidem Tartrate 5 mg 10/21/16 10:34 Ambien - PO HS PRN INSOMNIA Impression 1. CKD 2. DM 3. HTN 4. CHF 5. COPD 6. fluid overload 7. BPH 8. insomnia 9. narcotic dependence Plan - renal function is stable - cont with lasix - pt not compliant with salt and fluid intake - keep on losartan - check bmp in am - outp follow up, pt will see Dr Nelson - will follow Dr Nathan
[2016-10-24] MEDS: TERAZOSIN HCL 5 MG CAPSULE PO SCH (22:27)
[2016-10-24] MEDS: SENNOSIDES 8.6MG TABLET (FP) PO SCH (22:27)
--- NOTE | 2016-10-25 00:24 | PN ---
Progress Note, Physician Chief Complaint: blood sugars still fluctuate despite diet restriction,has episodes of low sugars History of Present Illness: iddm copd,htn,chf ckd,frequent labile bs - Current Medication List Current Medications: Active Medications Acetaminophen (Tylenol -) 650 mg PO Q6H PRN PRN Reason: FEVER OR PAIN Albuterol Sulfate (Ventolin 0.083% Nebulizer Soln -) 1 amp NEB QIDR [facility] Last Admin: 10/24/16 17:45 Dose: 1 amp Allopurinol (Zyloprim -) 100 mg PO DAILY [facility] Last Admin: 10/24/16 10:33 Dose: 100 mg Aspirin (Asa -) 81 mg PO DAILY [facility] Last Admin: 10/24/16 10:29 Dose: 81 mg Budesonide/Formoterol Fumarate (Symbicort 160/4.5mcg -) 2 puff IH BID [facility] Last Admin: 10/24/16 22:31 Dose: 2 puff Buspirone HCl (Buspar -) 5 mg PO BID [facility] Last Admin: 10/24/16 22:30 Dose: Not Given Diltiazem HCl (Cardizem Cd -) 120 mg PO DAILY [facility] Last Admin: 10/24/16 10:30 Dose: 120 mg Docusate Sodium (Colace -) 100 mg PO Q8H PRN PRN Reason: CONSTIPATION Last Admin: 10/20/16 21:49 Dose: 100 mg Ferrous Sulfate (Feosol -) 325 mg PO DAILY [facility] Last Admin: 10/24/16 10:33 Dose: 325 mg Furosemide (Lasix Injection -) 80 mg IVPUSH DAILY [facility] Last Admin: 10/24/16 10:34 Dose: 80 mg Gemfibrozil (Lopid -) 600 mg PO BID@0700,1630 [facility] Last Admin: 10/24/16 16:32 Dose: 600 mg Hydromorphone HCl (Dilaudid -) 2 mg PO HS PRN PRN Reason: PAIN Hydromorphone HCl (Dilaudid Injection -) 2 mg IVPB BID PRN Last Admin: 10/24/16 16:04 Dose: 2 mg Insulin Aspart (Novolog Mix 70/30 Vial) 15 units SQ BIDAC [facility] Last Admin: 10/24/16 18:05 Dose: 15 units Insulin Aspart (Novolog Vial Sliding Scale -) 1 vial SQ ACHS [facility] PRN Reason: Protocol Last Admin: 10/24/16 22:32 Dose: 2 units Lactulose (Cephulac (Oral Use)) 20 gm PO BID [facility] Last Admin: 10/24/16 22:27 Dose: Not Given Losartan Potassium (Cozaar -) 25 mg PO DAILY [facility] Last Admin: 10/24/16 10:30 Dose: 25 mg Miscellaneous (Duragesic Patch Waste) 1 each MC PRN PRN PRN Reason: PAIN Last Admin: 10/20/16 22:33 Dose: 1 each Prednisone (Deltasone -) 30 mg PO DAILY [facility] Last Admin: 10/24/16 10:31 Dose: 30 mg Roflumilast (Daliresp -) 500 mcg PO DAILY [facility] Last Admin: 10/24/16 10:30 Dose: 500 mcg Senna (Senna -) 1 tab PO HS [facility] Last Admin: 10/24/16 22:27 Dose: 1 tab Sodium Chloride ([place] Nasal [place] -) 2 spray NS TID PRN PRN Reason: NASAL CONGESTION Tamsulosin HCl (Flomax -) 0.4 mg PO DAILY@0830 [facility] Last Admin: 10/24/16 08:36 Dose: 0.4 mg Terazosin HCl (Hytrin -) 5 mg PO HS [facility] Last Admin: 10/24/16 22:27 Dose: 5 mg Tiotropium [place] (Spiriva -) 1 puff IH DAILY [facility] Last Admin: 10/24/16 10:33 Dose: 1 puff Zolpidem Tartrate (Ambien -) 5 mg PO HS PRN PRN Reason: INSOMNIA Last Admin: 10/24/16 22:27 Dose: 5 mg - Objective Vital Signs: Vital Signs Temperature 98.4 F 10/24/16 17:31 Pulse Rate 92 H 10/24/16 17:31 Respiratory Rate 20 10/24/16 17:31 Blood Pressure 126/71 10/24/16 17:31 O2 Sat by Pulse Oximetry (%) 95 10/24/16 09:00 Constitutional: Yes: Well Nourished Eyes: Yes: EOM Intact HENT: Yes: Normocephalic Neck: Yes: Trachea Midline Cardiovascular: Yes: Regular Rate and Rhythm Respiratory: Yes: Cough, SOB on Exertion, Tachypnea Gastrointestinal: Yes: WNL ...Rectal Exam: Yes: Deferred Genitourinary: Yes: WNL Musculoskeletal: Yes: Back Pain, Muscle Pain, Muscle Weakness Edema: Yes Edema: LLE: 2+, RLE: 2+ Labs: CBC, BMP 10/22/16 09:00 10/24/16 06:20 INR, PTT INR 1.00 (0.82-1.09) 10/14/16 17:19 Problem List - Problems (1) COPD exacerbation Code(s): J44.1 - CHRONIC OBSTRUCTIVE PULMONARY DISEASE W (ACUTE) EXACERBATION (2) Cough Code(s): R05 - COUGH (3) Diabetes mellitus, insulin dependent (IDDM), uncontrolled Code(s): E10.65 - TYPE 1 DIABETES MELLITUS WITH HYPERGLYCEMIA Qualifiers: Diabetes mellitus complication status: without complication Qualified Code(s): E10.9 - Type 1 diabetes mellitus without complications Assessment/Plan Current Active Problems Acute on chronic diastolic (congestive) heart failure (Acute) Atelectasis (Acute) Bigeminy (Acute) COPD exacerbation (Acute) Chronic back pain greater than 3 months duration (Acute) Chronic respiratory failure with hypoxia (Acute) Cough (Acute) Diabetes mellitus, insulin dependent (IDDM), uncontrolled (Acute) HTN (hypertension) (Acute) Hyperlipidemia LDL goal < 100 (Acute) Hypertriglyceridemia (Acute) Leg edema (Acute) Shortness of breath (Acute) Tachycardia (Acute) Wheeze (Acute) Abnormal Lab Results 10/24/16 06:20 BUN 48 H Creatinine 1.6 H Random Glucose 192 H D Current Medications Generic Name Dose Route Start Last Admin Trade Name Freq PRN Reason Stop Dose Admin Acetaminophen 650 mg 10/14/16 21:18 Tylenol - PO Q6H PRN FEVER OR PAIN Albuterol Sulfate 1 amp 10/23/16 12:00 10/24/16 17:45 Ventolin 0.083% Nebulizer Soln - NEB 1 amp QIDR [facility] Administration Allopurinol 100 mg 10/15/16 10:00 10/24/16 10:33 Zyloprim - PO 100 mg DAILY [facility] Administration Aspirin 81 mg 10/15/16 10:00 10/24/16 10:29 Asa - PO 81 mg DAILY [facility] Administration Budesonide/Formoterol Fumarate 2 puff 10/14/16 22:00 10/24/16 22:31 Symbicort 160/4.5mcg - IH 2 puff BID [facility] Administration Buspirone HCl 5 mg 10/14/16 22:00 10/24/16 22:30 Buspar - PO Not Given BID [facility] Diltiazem HCl 120 mg 10/15/16 10:00 10/24/16 10:30 Cardizem Cd - PO 120 mg DAILY [facility] Administration Docusate Sodium 100 mg 10/14/16 21:18 10/20/16 21:49 Colace - PO 100 mg Q8H PRN Administration CONSTIPATION Ferrous Sulfate 325 mg 10/15/16 10:00 10/24/16 10:33 Feosol - PO 325 mg DAILY [facility] Administration Furosemide 80 mg 10/21/16 10:00 10/24/16 10:34 Lasix Injection - IVPUSH 80 mg DAILY [facility] Administration Gemfibrozil 600 mg 10/15/16 07:00 10/24/16 16:32 Lopid - PO 600 mg BID@0700,1630 [facility] Administration Hydromorphone HCl 2 mg 10/23/16 11:18 Dilaudid - PO HS PRN PAIN Hydromorphone HCl 2 mg 10/24/16 10:00 10/24/16 16:04 Dilaudid Injection - IVPB 2 mg BID PRN Administration Insulin Aspart 15 units 10/23/16 13:32 10/24/16 18:05 Novolog Mix 70/30 Vial SQ 15 units BIDAC [facility] Administration Insulin Aspart 1 vial 10/23/16 14:04 10/24/16 22:32 Novolog Vial Sliding Scale - SQ 2 units ACHS [facility] Administration Protocol Lactulose 20 gm 10/14/16 22:00 10/24/16 22:27 Cephulac (Oral Use) PO Not Given BID [facility] Losartan Potassium 25 mg 10/15/16 10:00 10/24/16 10:30 Cozaar - PO 25 mg DAILY [facility] Administration Miscellaneous 1 each 10/14/16 21:18 10/20/16 22:33 Duragesic Patch Waste MC 1 each PRN PRN Administration PAIN Prednisone 30 mg 10/23/16 14:04 10/24/16 10:31 Deltasone - PO 30 mg DAILY [facility] Administration Roflumilast 500 mcg 10/15/16 10:00 10/24/16 10:30 Daliresp - PO 500 mcg DAILY [facility] Administration Senna 1 tab 10/14/16 22:00 02/22/17 22:27 Senna - PO 1 tab HS [facility] Administration Sodium Chloride 2 spray 10/14/16 21:18 [place] Nasal [place] - NS TID PRN NASAL CONGESTION Tamsulosin HCl 0.4 mg 10/15/16 08:30 10/24/16 08:36 Flomax - PO 0.4 mg DAILY@0830 [facility] Administration Terazosin HCl 5 mg 10/14/16 22:00 10/24/16 22:27 Hytrin - PO 5 mg HS [facility] Administration Tiotropium [place] 1 puff 10/16/16 10:00 10/24/16 10:33 Spiriva - IH 1 puff DAILY [facility] Administration Zolpidem Tartrate 5 mg 10/21/16 10:34 10/24/16 22:27 Ambien - PO 5 mg HS PRN Administration INSOMNIA dc novolog 70/30 am dos use levemir 15 units am novolog 70/30 15 units ac supper
[2016-10-25] MEDS: ALBUTEROL SO4 0.083% IH SOL 2.5 MG/3 ML VIAL.NEB. NEB SCH ×4 (05:22→23:27)
[2016-10-25] MEDS: GEMFIBROZIL 600 MG TABLET (FP) PO SCH ×2 (06:20→17:23)
[2016-10-25] MEDS ORDERED: INSULIN (NOVOLOG) ASPART 100 UNITS/ML 10ML VIAL ONE (06:44)
[2016-10-25] MEDS ORDERED: INSULIN DETEMIR 100 UNITS/ML MDV SQ ONE (06:45)
[2016-10-25] MEDS: INSULIN DETEMIR 100 UNITS/ML MDV SQ SCH (06:47)
[2016-10-25] MEDS: INSULIN SLIDING SCALE (NOVOLOG) 1 VIAL SQ SCH ×4 (06:47→22:34)
--- NOTE | 2016-10-25 07:14 | PN ---
Progress Note, Physician History of Present Illness: C/O BACK PAIN - Current Medication List Current Medications: Active Medications Acetaminophen (Tylenol -) 650 mg PO Q6H PRN PRN Reason: FEVER OR PAIN Albuterol Sulfate (Ventolin 0.083% Nebulizer Soln -) 1 amp NEB QIDR [facility] Last Admin: 10/25/16 05:22 Dose: 1 amp Allopurinol (Zyloprim -) 100 mg PO DAILY [facility] Last Admin: 10/24/16 10:33 Dose: 100 mg Aspirin (Asa -) 81 mg PO DAILY [facility] Last Admin: 10/24/16 10:29 Dose: 81 mg Budesonide/Formoterol Fumarate (Symbicort 160/4.5mcg -) 2 puff IH BID [facility] Last Admin: 10/24/16 22:31 Dose: 2 puff Buspirone HCl (Buspar -) 5 mg PO BID [facility] Last Admin: 10/24/16 22:30 Dose: Not Given Diltiazem HCl (Cardizem Cd -) 120 mg PO DAILY [facility] Last Admin: 10/24/16 10:30 Dose: 120 mg Docusate Sodium (Colace -) 100 mg PO Q8H PRN PRN Reason: CONSTIPATION Last Admin: 10/20/16 21:49 Dose: 100 mg Ferrous Sulfate (Feosol -) 325 mg PO DAILY [facility] Last Admin: 10/24/16 10:33 Dose: 325 mg Furosemide (Lasix -) 80 mg PO DAILY [facility] Gemfibrozil (Lopid -) 600 mg PO BID@0700,1630 [facility] Last Admin: 10/25/16 06:20 Dose: 600 mg Hydromorphone HCl (Dilaudid Injection -) 2 mg IVPB Q8H PRN PRN Reason: PAIN Insulin Aspart (Novolog Vial Sliding Scale -) 1 vial SQ ACHS [facility] PRN Reason: Protocol Last Admin: 10/25/16 06:47 Dose: 2 units Insulin Aspart (Novolog Mix 70/30 Vial) 15 units SQ DAILY [facility] Insulin Detemir (Levemir Vial) 15 units SQ AM [facility] Last Admin: 10/25/16 06:47 Dose: 15 units Lactulose (Cephulac (Oral Use)) 20 gm PO BID [facility] Last Admin: 10/24/16 22:27 Dose: Not Given Losartan Potassium (Cozaar -) 25 mg PO DAILY [facility] Last Admin: 10/24/16 10:30 Dose: 25 mg Metolazone (Zaroxolyn -) 2.5 mg PO DAILY [facility] Miscellaneous (Duragesic Patch Waste) 1 each MC PRN PRN PRN Reason: PAIN Last Admin: 10/20/16 22:33 Dose: 1 each Prednisone (Deltasone -) 30 mg PO DAILY [facility] Last Admin: 10/24/16 10:31 Dose: 30 mg Roflumilast (Daliresp -) 500 mcg PO DAILY [facility] Last Admin: 10/24/16 10:30 Dose: 500 mcg Senna (Senna -) 1 tab PO HS [facility] Last Admin: 10/24/16 22:27 Dose: 1 tab Sodium Chloride ([place] Nasal [place] -) 2 spray NS TID PRN PRN Reason: NASAL CONGESTION Tamsulosin HCl (Flomax -) 0.4 mg PO DAILY@0830 [facility] Last Admin: 10/24/16 08:36 Dose: 0.4 mg Terazosin HCl (Hytrin -) 5 mg PO HS [facility] Last Admin: 10/24/16 22:27 Dose: 5 mg Tiotropium [place] (Spiriva -) 1 puff IH DAILY [facility] Last Admin: 10/24/16 10:33 Dose: 1 puff Zolpidem Tartrate (Ambien -) 5 mg PO HS PRN PRN Reason: INSOMNIA Last Admin: 10/24/16 22:27 Dose: 5 mg - Objective Vital Signs: Vital Signs Temperature 98.2 F 10/25/16 06:31 Pulse Rate 88 10/25/16 06:31 Respiratory Rate 20 10/25/16 06:31 Blood Pressure 146/72 10/25/16 06:31 O2 Sat by Pulse Oximetry (%) 95 10/24/16 21:00 Cardiovascular: Yes: S1, S2 Respiratory: Yes: Rhonchi. No: Wheezes Gastrointestinal: Yes: Normal Bowel Sounds, Soft Labs: CBC, BMP 10/22/16 09:00 10/24/16 06:20 INR, PTT INR 1.00 (0.82-1.09) 10/14/16 17:19 Assessment/Plan - Problems (1) Leg edema Assessment/Plan: improving with iv lasix renal on board lasix TO PO ADD ZAROXYLN monitor lytes Code(s): R60.0 - LOCALIZED EDEMA Qualifiers: Laterality: bilateral Qualified Code(s): R60.0 - Localized edema (2) COPD exacerbation Assessment/Plan: pulm steroids po prednsione 30mg symbicort daliresp spiriva paitent does not want turdoza oxygen [place] Code(s): J44.1 - CHRONIC OBSTRUCTIVE PULMONARY DISEASE W (ACUTE) EXACERBATION (3) HTN (hypertension) Assessment/Plan: kwame cortez Code(s): I10 - ESSENTIAL (PRIMARY) HYPERTENSION Qualifiers: Hypertension type: essential hypertension Qualified Code(s): I10 - Essential (primary) hypertension (4) Hypertriglyceridemia Assessment/Plan: lopoid Code(s): E78.1 - PURE HYPERGLYCERIDEMIA (5) BPH (benign prostatic hyperplasia) Assessment/Plan: hytrin and flomax Code(s): N40.0 - BENIGN PROSTATIC HYPERPLASIA WITHOUT LOWER URINRY TRACT SYMP (6) Chronic back pain greater than 3 months duration Assessment/Plan: fentanyl and oxycodone Code(s): M54.9 - DORSALGIA, UNSPECIFIED G89.29 - OTHER CHRONIC PAIN (7) Diabetes mellitus Assessment/Plan: patient not eating as well at home so bgm dropping wants chase sausage yogurt banana insulin 15 units stop januvia Code(s): E11.9 - TYPE 2 DIABETES MELLITUS WITHOUT COMPLICATIONS Qualifiers: Diabetes mellitus type: type 2 Diabetes mellitus complication status: without complication 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
[2016-10-25] MEDS ORDERED: PT OWN MED DRAWER 7, Y5N ONE ×4 (09:27→20:13)
[2016-10-25] MEDS: predniSONE 20 MG TABLET (UD) PO SCH (09:38)
[2016-10-25] MEDS: ASPIRIN 81 MG CHEWABLE TABLETS PO SCH (09:39)
[2016-10-25] MEDS: LOSARTAN POTASSIUM 25 MG TABLET PO SCH (09:39)
[2016-10-25] MEDS: FERROUS SO4 325 MG TABLET (FP) PO SCH (09:39)
[2016-10-25] MEDS: ALLOPURINOL 100 MG TABLET (FP) PO SCH (09:40)
[2016-10-25] MEDS: LACTULOSE 20 GM/30 ML UDC (FOR ORAL USE ONLY) PO SCH ×2 (09:40→22:33)
[2016-10-25] MEDS: ROFLUMILAST 500 MCG TABLET PO SCH (09:41)
[2016-10-25] MEDS: TAMSULOSIN HCL 0.4 MG CAP.ER.24H (FP) PO SCH (09:41)
[2016-10-25] MEDS: HYDROmorphone HCL CARPU-JECT 2 MG/1 ML DISP.SYRIN IVPB PRN ×2 (09:41→17:21)
[2016-10-25] MEDS: BUDESONIDE/FORMETEROL FUMARATE 160/4.5 mcg INHALER IH SCH ×2 (09:43→22:34)
[2016-10-25] MEDS: TIOTROPIUM BROMIDE 18 MCG/INH (DEVICE W/ 5 CAPSULES) IH SCH (09:43)
[2016-10-25] MEDS: busPIRone HCL 5 MG TABLET PO SCH (09:43)
[2016-10-25] MEDS: INSULIN (NOVOLOG MIX 70/30) 100 UNITS/ML MDV SQ SCH (09:45)
[2016-10-25] MEDS ORDERED: FUROSEMIDE 40 MG TABLET (FP) PO SCH ×2 (10:00→16:28)
--- NOTE | 2016-10-25 10:17 | PN ---
Progress Note (short form) - Note Progress Note: PULMONARY Breathing continues to improve. +nonproductive cough. No fevers or chills. CXR showing bibasilar atelectasis unchanged from prior. Last Vital Signs Temp Pulse Resp BP Pulse Ox 98.2 F 88 20 146/72 95 10/25/16 06:31 10/25/16 06:31 10/25/16 06:31 10/25/16 06:31 10/24/16 21:00 Gen: NAD at rest, ambulating in hallways Heart: RRR Lung: decreased breath sounds at the bases, no wheezes appreciated Abd: soft, nontender Ext: + edema CBC, BMP 10/22/16 09:00 10/24/16 06:20 Active Medications Acetaminophen (Tylenol -) 650 mg PO Q6H PRN PRN Reason: FEVER OR PAIN Albuterol Sulfate (Ventolin 0.083% Nebulizer Soln -) 1 amp NEB QIDR [facility] Last Admin: 10/25/16 05:22 Dose: 1 amp Albuterol Sulfate (Ventolin 0.083% Nebulizer Soln -) 1 amp NEB Q4H PRN PRN Reason: SHORT OF BREATH/WHEEZING Allopurinol (Zyloprim -) 100 mg PO DAILY [facility] Last Admin: 10/25/16 09:40 Dose: 100 mg Aspirin (Asa -) 81 mg PO DAILY [facility] Last Admin: 10/25/16 09:39 Dose: 81 mg Budesonide/Formoterol Fumarate (Symbicort 160/4.5mcg -) 2 puff IH BID [facility] Last Admin: 10/25/16 09:43 Dose: 2 puff Buspirone HCl (Buspar -) 5 mg PO BID [facility] Last Admin: 10/25/16 09:43 Dose: Not Given Diltiazem HCl (Cardizem Cd -) 120 mg PO DAILY [facility] Last Admin: 10/25/16 09:40 Dose: 120 mg Docusate Sodium (Colace -) 100 mg PO Q8H PRN PRN Reason: CONSTIPATION Last Admin: 10/20/16 21:49 Dose: 100 mg Ferrous Sulfate (Feosol -) 325 mg PO DAILY [facility] Last Admin: 10/25/16 09:39 Dose: 325 mg Furosemide (Lasix -) 80 mg PO DAILY [facility] Gemfibrozil (Lopid -) 600 mg PO BID@0700,1630 [facility] Last Admin: 10/25/16 06:20 Dose: 600 mg Hydromorphone HCl (Dilaudid Injection -) 2 mg IVPB Q8H PRN PRN Reason: PAIN Last Admin: 10/25/16 09:41 Dose: 2 mg Insulin Aspart (Novolog Vial Sliding Scale -) 1 vial SQ ACHS [facility] PRN Reason: Protocol Last Admin: 10/25/16 06:47 Dose: 2 units Insulin Aspart (Novolog Mix 70/30 Vial) 15 units SQ DAILY [facility] Last Admin: 10/25/16 09:45 Dose: 15 units Insulin Detemir (Levemir Vial) 15 units SQ AM [facility] Last Admin: 10/25/16 06:47 Dose: 15 units Lactulose (Cephulac (Oral Use)) 20 gm PO BID [facility] Last Admin: 10/25/16 09:40 Dose: 20 gm Losartan Potassium (Cozaar -) 25 mg PO DAILY [facility] Last Admin: 10/25/16 09:39 Dose: 25 mg Metolazone (Zaroxolyn -) 2.5 mg PO DAILY@0930 [facility] Miscellaneous (Duragesic Patch Waste) 1 each MC PRN PRN PRN Reason: PAIN Last Admin: 10/20/16 22:33 Dose: 1 each Prednisone (Deltasone -) 30 mg PO DAILY [facility] Last Admin: 10/25/16 09:38 Dose: 30 mg Roflumilast (Daliresp -) 500 mcg PO DAILY [facility] Last Admin: 10/25/16 09:41 Dose: 500 mcg Senna (Senna -) 1 tab PO [facility] Last Admin: 10/24/16 22:27 Dose: 1 tab Sodium Chloride ([place] Nasal [place] -) 2 spray NS TID PRN PRN Reason: NASAL CONGESTION Tamsulosin HCl (Flomax -) 0.4 mg PO DAILY@0830 [facility] Last Admin: 10/25/16 09:41 Dose: 0.4 mg Terazosin HCl (Hytrin -) 5 mg PO [facility] Last Admin: 10/24/16 22:27 Dose: 5 mg Tiotropium [place] (Spiriva -) 1 puff IH DAILY [facility] Last Admin: 10/25/16 09:43 Dose: 1 puff Zolpidem Tartrate (Ambien -) 5 mg PO PRN PRN Reason: INSOMNIA Last Admin: 10/24/16 22:27 Dose: 5 mg A/P Acute COPD Exacerbation Acute on Chronic LV Diastolic Heart Failure Chronic Hypoxic Respiratory Failure HTN DM Hypercholesterolemia CKD Atelectasis - prednisone taper - inhaled bronchodilators - O2 to keep SpO2 >90% - lasix - monitor urine output, creatinine - DVT prophylaxis - can d/c home from pulmonary standpoint Problem List - Problems (1) Acute on chronic diastolic (congestive) heart failure Code(s): I50.33 - ACUTE ON CHRONIC DIASTOLIC (CONGESTIVE) HEART FAILURE (2) COPD (chronic obstructive pulmonary disease) Code(s): J44.9 - CHRONIC OBSTRUCTIVE PULMONARY DISEASE, UNSPECIFIED (3) Chronic respiratory failure with hypoxia Code(s): J96.11 - CHRONIC RESPIRATORY FAILURE WITH HYPOXIA (4) Atelectasis Code(s): J98.11 - ATELECTASIS (5) Diabetes mellitus, insulin dependent (IDDM), uncontrolled Code(s): E10.65 - TYPE 1 DIABETES MELLITUS WITH HYPERGLYCEMIA Qualifiers: Qualified Code(s): E10.9 - Type 1 diabetes mellitus without complications (6) HTN (hypertension) Code(s): I10 - ESSENTIAL (PRIMARY) HYPERTENSION Qualifiers: Qualified Code(s): I10 - Essential (primary) hypertension
[2016-10-25] MEDS: METOLAZONE 2.5 MG TABLET (FP) PO SCH (10:57)
--- NOTE | 2016-10-25 14:55 | PN ---
Progress Note, Physician History of Present Illness: Pt still complains of shortness of breath and generalized pain. He is not using oxygen. - Current Medication List Current Medications: Active Medications Acetaminophen (Tylenol -) 650 mg PO Q6H PRN PRN Reason: FEVER OR PAIN Albuterol Sulfate (Ventolin 0.083% Nebulizer Soln -) 1 amp NEB QIDR ON LICENSE OF [facility] Last Admin: 10/25/16 11:11 Dose: 1 amp Albuterol Sulfate (Ventolin 0.083% Nebulizer Soln -) 1 amp NEB Q4H PRN PRN Reason: SHORT OF BREATH/WHEEZING Allopurinol (Zyloprim -) 100 mg PO DAILY ON LICENSE OF [facility] Last Admin: 10/25/16 09:40 Dose: 100 mg Aspirin (Asa -) 81 mg PO DAILY ON [facility] Last Admin: 10/25/16 09:39 Dose: 81 mg Budesonide/Formoterol Fumarate (Symbicort 160/4.5mcg -) 2 puff IH BID ON LICENSE OF [facility] Last Admin: 10/25/16 09:43 Dose: 2 puff Diltiazem HCl (Cardizem Cd -) 120 mg PO DAILY ON [facility] Last Admin: 10/25/16 09:40 Dose: 120 mg Docusate Sodium (Colace -) 100 mg PO Q8H PRN PRN Reason: CONSTIPATION Last Admin: 10/20/16 21:49 Dose: 100 mg Ferrous Sulfate (Feosol -) 325 mg PO DAILY ON [facility] Last Admin: 10/25/16 09:39 Dose: 325 mg Furosemide (Lasix -) 80 mg PO DAILY ON [facility] Last Admin: 10/25/16 11:50 Dose: 80 mg Gemfibrozil (Lopid -) 600 mg PO BID@0700,1630 ON LICENSE OF [facility] Last Admin: 10/25/16 06:20 Dose: 600 mg Hydromorphone HCl (Dilaudid Injection -) 2 mg IVPB Q8H PRN PRN Reason: PAIN Last Admin: 10/25/16 09:41 Dose: 2 mg Insulin Aspart (Novolog Vial Sliding Scale -) 1 vial SQ ACHS ON LICENSE OF [facility] PRN Reason: Protocol Last Admin: 10/25/16 11:50 Dose: Not Given Insulin Aspart (Novolog Mix 70/30 Vial) 15 units SQ DAILY ON [facility] Last Admin: 10/25/16 09:45 Dose: 15 units Insulin Detemir (Levemir Vial) 15 units SQ AM ON LICENSE OF [facility] Last Admin: 10/25/16 06:47 Dose: 15 units Lactulose (Cephulac (Oral Use)) 20 gm PO BID ON LICENSE OF [facility] Last Admin: 10/25/16 09:40 Dose: 20 gm Losartan Potassium (Cozaar -) 25 mg PO DAILY ON [facility] Last Admin: 10/25/16 09:39 Dose: 25 mg Metolazone (Zaroxolyn -) 2.5 mg PO DAILY@0930 ON [facility] Last Admin: 10/25/16 10:57 Dose: 2.5 mg Miscellaneous (Duragesic Patch Waste) 1 each MC PRN PRN PRN Reason: PAIN Last Admin: 10/20/16 22:33 Dose: 1 each Prednisone (Deltasone -) 30 mg PO DAILY ON [facility] Last Admin: 10/25/16 09:38 Dose: 30 mg Roflumilast (Daliresp -) 500 mcg PO DAILY ON [facility] Last Admin: 10/25/16 09:41 Dose: 500 mcg Senna (Senna -) 1 tab PO [facility] Last Admin: 10/24/16 22:27 Dose: 1 tab Sodium Chloride ([place] Nasal [place] -) 2 spray NS TID PRN PRN Reason: NASAL CONGESTION Tamsulosin HCl (Flomax -) 0.4 mg PO DAILY@0830 ON LICENSE OF [facility] Last Admin: 10/25/16 09:41 Dose: 0.4 mg Terazosin HCl (Hytrin -) 5 mg PO [facility] Last Admin: 10/24/16 22:27 Dose: 5 mg Tiotropium [place] (Spiriva -) 1 puff IH DAILY ON LICENSE OF [facility] Last Admin: 10/25/16 09:43 Dose: 1 puff Zolpidem Tartrate (Ambien -) 5 mg PO HS PRN PRN Reason: INSOMNIA Last Admin: 10/24/16 22:27 Dose: 5 mg - Objective Vital Signs: Vital Signs Temperature 98.3 F 10/25/16 11:00 Pulse Rate 106 H 10/25/16 11:00 Respiratory Rate 18 10/25/16 11:00 Blood Pressure 149/79 10/25/16 11:00 O2 Sat by Pulse Oximetry (%) 95 10/24/16 21:00 Constitutional: Yes: Calm Cardiovascular: Yes: S1, S2 Respiratory: Yes: CTA Bilaterally Gastrointestinal: Yes: Soft Genitourinary: Yes: WNL Musculoskeletal: Yes: WNL Edema: Yes Neurological: Yes: Oriented Psychiatric: Yes: Oriented Labs: CBC, BMP 10/22/16 09:00 10/24/16 06:20 INR, PTT INR 1.00 (0.82-1.09) 10/14/16 17:19 Problem List - Problems (1) COPD exacerbation Code(s): J44.1 - CHRONIC OBSTRUCTIVE PULMONARY DISEASE W (ACUTE) EXACERBATION (2) Chronic respiratory failure with hypoxia Code(s): J96.11 - CHRONIC RESPIRATORY FAILURE WITH HYPOXIA (3) Diabetes mellitus, insulin dependent (IDDM), uncontrolled Code(s): E10.65 - TYPE 1 DIABETES MELLITUS WITH HYPERGLYCEMIA Qualifiers: Diabetes mellitus complication status: without complication Qualified Code(s): E10.9 - Type 1 diabetes mellitus without complications (4) HTN (hypertension) Code(s): I10 - ESSENTIAL (PRIMARY) HYPERTENSION Qualifiers: Hypertension type: essential hypertension Qualified Code(s): I10 - Essential (primary) hypertension (5) Shortness of breath Code(s): R06.02 - SHORTNESS OF BREATH (6) Anemia Code(s): D64.9 - ANEMIA, UNSPECIFIED Qualifiers: Anemia type: unspecified type Qualified Code(s): D64.9 - Anemia, unspecified (7) CHF (congestive heart failure) Code(s): I50.9 - HEART FAILURE, UNSPECIFIED Qualifiers: Congestive heart failure type: diastolic (8) CKD (chronic kidney disease) Code(s): N18.9 - CHRONIC KIDNEY DISEASE, UNSPECIFIED Qualifiers: Chronic kidney disease stage: unspecified stage Qualified Code(s): N18.9 - Chronic kidney disease, unspecified (9) COPD (chronic obstructive pulmonary disease) Code(s): J44.9 - CHRONIC OBSTRUCTIVE PULMONARY DISEASE, UNSPECIFIED Qualifiers : COPD type: chronic bronchitis (10) GERD (gastroesophageal reflux disease) Code(s): K21.9 - GASTRO-ESOPHAGEAL REFLUX DISEASE WITHOUT ESOPHAGITIS Assessment/Plan Current Medications Generic Name Dose Route Start Last Admin Trade Name Freq PRN Reason Stop Dose Admin Acetaminophen 650 mg 10/14/16 21:18 Tylenol - PO Q6H PRN FEVER OR PAIN Albuterol Sulfate 1 amp 10/23/16 12:00 10/25/16 11:11 Ventolin 0.083% Nebulizer Soln - NEB 1 amp QIDR JOSE LUIS Administration Albuterol Sulfate 1 amp 10/25/16 09:55 Ventolin 0.083% Nebulizer Soln - NEB Q4H PRN SHORT OF BREATH/WHEEZING Allopurinol 100 mg 10/15/16 10:00 10/25/16 09:40 Zyloprim - PO 100 mg DAILY JOSE LUIS Administration Aspirin 81 mg 10/15/16 10:00 10/25/16 09:39 Asa - PO 81 mg DAILY JOSE LUIS Administration Budesonide/Formoterol Fumarate 2 puff 10/14/16 22:00 10/25/16 09:43 Symbicort 160/4.5mcg - IH 2 puff BID JOSE LUIS Administration Diltiazem HCl 120 mg 10/15/16 10:00 10/25/16 09:40 Cardizem Cd - PO 120 mg DAILY JOSE LUIS Administration Docusate Sodium 100 mg 10/14/16 21:18 10/20/16 21:49 Colace - PO 100 mg Q8H PRN Administration CONSTIPATION Ferrous Sulfate 325 mg 10/15/16 10:00 10/25/16 09:39 Feosol - PO 325 mg DAILY JOSE LUIS Administration Furosemide 80 mg 10/25/16 10:00 10/25/16 11:50 Lasix - PO 80 mg DAILY JOSE LUIS Administration Gemfibrozil 600 mg 10/15/16 07:00 10/25/16 06:20 Lopid - PO 600 mg BID@0700,1630 JOSE LUIS Administration Hydromorphone HCl 2 mg 10/25/16 07:11 10/25/16 09:41 Dilaudid Injection - IVPB 2 mg Q8H PRN Administration PAIN Insulin Aspart 1 vial 10/23/16 14:04 10/25/16 11:50 Novolog Vial Sliding Scale - SQ Not Given ACHS ON LICENSE OF [facility] Protocol Insulin Aspart 15 units 10/25/16 10:00 10/25/16 09:45 Novolog Mix 70/30 Vial SQ 15 units DAILY JOSE LUIS Administration Insulin Detemir 15 units 10/25/16 07:00 10/25/16 06:47 Levemir Vial SQ 15 units AM JOSE LUIS Administration Lactulose 20 gm 10/14/16 22:00 10/25/16 09:40 Cephulac (Oral Use) PO 20 gm BID JOSE LUIS Administration Losartan Potassium 25 mg 10/15/16 10:00 10/25/16 09:39 Cozaar - PO 25 mg DAILY JOSE LUIS Administration Metolazone 2.5 mg 10/25/16 09:30 10/25/16 10:57 Zaroxolyn - PO 2.5 mg DAILY@0930 JOSE LUIS Administration Miscellaneous 1 each 10/14/16 21:18 10/20/16 22:33 Duragesic Patch Waste MC 1 each PRN PRN Administration PAIN Prednisone 30 mg 10/23/16 14:04 10/25/16 09:38 Deltasone - PO 30 mg DAILY JOSE LUIS Administration Roflumilast 500 mcg 10/15/16 10:00 10/25/16 09:41 Daliresp - PO 500 mcg DAILY JOSE LUIS Administration Senna 1 tab 10/14/16 22:00 10/24/16 22:27 Senna - PO 1 tab HS JOSE LUIS Administration Sodium Chloride 2 spray 10/14/16 21:18 [place] Nasal [place] - NS TID PRN NASAL CONGESTION Tamsulosin HCl 0.4 mg 10/15/16 08:30 10/25/16 09:41 Flomax - PO 0.4 mg DAILY@0830 JOSE LUIS Administration Terazosin HCl 5 mg 10/14/16 22:00 10/24/16 22:27 Hytrin - PO 5 mg HS JOSE LUIS Administration Tiotropium [place] 1 puff 10/16/16 10:00 10/25/16 09:43 Spiriva - IH 1 puff DAILY JOSE LUIS Administration Zolpidem Tartrate 5 mg 10/21/16 10:34 10/24/16 22:27 Ambien - PO 5 mg HS PRN Administration INSOMNIA Impression 1. CKD 2. DM 3. HTN 4. CHF 5. COPD 6. fluid overload 7. BPH 8. insomnia 9. narcotic dependence Plan - cont PO lasix - outpt follow up with Dr Nelson - no acute change in management - pt not compliant with salt and fluid intake - keep on losartan - will follow PRN Dr Nathan
[2016-10-25] MEDS: ALBUTEROL SO4 0.083% IH SOL 2.5 MG/3 ML VIAL.NEB. NEB PRN (15:24)
--- NOTE | 2016-10-25 16:25 | PN ---
Progress Note, Physician History of Present Illness: Dyspnea and LE edema improved. - Current Medication List Current Medications: Active Medications Acetaminophen (Tylenol -) 650 mg PO Q6H PRN PRN Reason: FEVER OR PAIN Albuterol Sulfate (Ventolin 0.083% Nebulizer Soln -) 1 amp NEB QIDR [facility] Last Admin: 10/25/16 11:11 Dose: 1 amp Albuterol Sulfate (Ventolin 0.083% Nebulizer Soln -) 1 amp NEB Q4H PRN PRN Reason: SHORT OF BREATH/WHEEZING Last Admin: 10/25/16 15:24 Dose: 1 amp Allopurinol (Zyloprim -) 100 mg PO DAILY [facility] Last Admin: 10/25/16 09:40 Dose: 100 mg Aspirin (Asa -) 81 mg PO DAILY [facility] Last Admin: 10/25/16 09:39 Dose: 81 mg Budesonide/Formoterol Fumarate (Symbicort 160/4.5mcg -) 2 puff IH BID [facility] Last Admin: 10/25/16 09:43 Dose: 2 puff Diltiazem HCl (Cardizem Cd -) 120 mg PO DAILY [facility] Last Admin: 10/25/16 09:40 Dose: 120 mg Docusate Sodium (Colace -) 100 mg PO Q8H PRN PRN Reason: CONSTIPATION Last Admin: 10/20/16 21:49 Dose: 100 mg Ferrous Sulfate (Feosol -) 325 mg PO DAILY [facility] Last Admin: 10/25/16 09:39 Dose: 325 mg Furosemide (Lasix -) 80 mg PO DAILY [facility] Last Admin: 10/25/16 11:50 Dose: 80 mg Gemfibrozil (Lopid -) 600 mg PO BID@0700,1630 [facility] Last Admin: 10/25/16 06:20 Dose: 600 mg Hydromorphone HCl (Dilaudid Injection -) 2 mg IVPB Q8H PRN PRN Reason: PAIN Last Admin: 10/25/16 09:41 Dose: 2 mg Insulin Aspart (Novolog Vial Sliding Scale -) 1 vial SQ ACHS [facility] PRN Reason: Protocol Last Admin: 10/25/16 11:50 Dose: Not Given Insulin Aspart (Novolog Mix 70/30 Vial) 15 units SQ DAILY [facility] Last Admin: 10/25/16 09:45 Dose: 15 units Insulin Detemir (Levemir Vial) 15 units SQ AM [facility] Last Admin: 10/25/16 06:47 Dose: 15 units Lactulose (Cephulac (Oral Use)) 20 gm PO BID [facility] Last Admin: 10/25/16 09:40 Dose: 20 gm Losartan Potassium (Cozaar -) 25 mg PO DAILY [facility] Last Admin: 10/25/16 09:39 Dose: 25 mg Metolazone (Zaroxolyn -) 2.5 mg PO DAILY@0930 [facility] Last Admin: 10/25/16 10:57 Dose: 2.5 mg Miscellaneous (Duragesic Patch Waste) 1 each MC PRN PRN PRN Reason: PAIN Last Admin: 10/20/16 22:33 Dose: 1 each Prednisone (Deltasone -) 30 mg PO DAILY [facility] Last Admin: 10/25/16 09:38 Dose: 30 mg Roflumilast (Daliresp -) 500 mcg PO DAILY [facility] Last Admin: 10/25/16 09:41 Dose: 500 mcg Senna (Senna -) 1 tab PO [facility] Last Admin: 10/24/16 22:27 Dose: 1 tab Sodium Chloride ([place] Nasal [place] -) 2 spray NS TID PRN PRN Reason: NASAL CONGESTION Tamsulosin HCl (Flomax -) 0.4 mg PO DAILY@0830 [facility] Last Admin: 10/25/16 09:41 Dose: 0.4 mg Terazosin HCl (Hytrin -) 5 mg PO HS [facility] Last Admin: 10/24/16 22:27 Dose: 5 mg Tiotropium [place] (Spiriva -) 1 puff IH DAILY [facility] Last Admin: 10/25/16 09:43 Dose: 1 puff Zolpidem Tartrate (Ambien -) 5 mg PO HS PRN PRN Reason: INSOMNIA Last Admin: 10/24/16 22:27 Dose: 5 mg - Objective Vital Signs: Vital Signs Temperature 98.3 F 10/25/16 15:45 Pulse Rate 103 H 10/25/16 15:45 Respiratory Rate 20 10/25/16 15:45 Blood Pressure 149/79 10/25/16 11:00 O2 Sat by Pulse Oximetry (%) 95 10/24/16 21:00 Constitutional: Yes: No Distress, Calm Neck: Yes: Supple Cardiovascular: Yes: Regular Rate and Rhythm Respiratory: Yes: Regular, Diminished Gastrointestinal: Yes: Normal Bowel Sounds, Soft, Abdomen, Obese Edema: Yes Labs: CBC, BMP 10/22/16 09:00 10/24/16 06:20 INR, PTT INR 1.00 (0.82-1.09) 10/14/16 17:19 - ....Imaging Chest X-ray: Report Reviewed (Bibasilar ATX resolved) Problem List - Problems (1) Acute on chronic diastolic (congestive) heart failure Code(s): I50.33 - ACUTE ON CHRONIC DIASTOLIC (CONGESTIVE) HEART FAILURE (2) HTN (hypertension) Code(s): I10 - ESSENTIAL (PRIMARY) HYPERTENSION Qualifiers: Hypertension type: essential hypertension Qualified Code(s): I10 - Essential (primary) hypertension (3) Hypertriglyceridemia Code(s): E78.1 - PURE HYPERGLYCERIDEMIA (4) Leg edema Code(s): R60.0 - LOCALIZED EDEMA Qualifiers: Laterality: bilateral Qualified Code(s): R60.0 - Localized edema (5) Shortness of breath Code(s): R06.02 - SHORTNESS OF BREATH (6) CKD (chronic kidney disease) Code(s): N18.9 - CHRONIC KIDNEY DISEASE, UNSPECIFIED Qualifiers: Chronic kidney disease stage: unspecified stage Qualified Code(s): N18.9 - Chronic kidney disease, unspecified (7) COPD (chronic obstructive pulmonary disease) Code(s): J44.9 - CHRONIC OBSTRUCTIVE PULMONARY DISEASE, UNSPECIFIED Qualifiers : COPD type: chronic bronchitis (8) Diabetes mellitus Code(s): E11.9 - TYPE 2 DIABETES MELLITUS WITHOUT COMPLICATIONS Qualifiers: Diabetes mellitus type: type 2 Diabetes mellitus complication status: without complication Diabetes mellitus ocean transportation intermediary insulin use: with ocean transportation intermediary use Qualified Code(s): E11.9 - Type 2 diabetes mellitus without complications (9) Anemia Code(s): D64.9 - ANEMIA, UNSPECIFIED Qualifiers: Anemia type: unspecified type Qualified Code(s): D64.9 - Anemia, unspecified Assessment/Plan 10/15/2016 Echo: Normal LV size and fxn, mild cLVH, no sig valve abnl 1. Acute on Chronic LV Diastolic Heart Failure resolved 2. COPD with Chronic Hypoxic Respiratory Failure 3. Insulin-dependent Type 2 diabetes mellitus 4. Hypercholesterolemia 5. Anemia 6. CKD 7. HTN PLAN: 1. Decrease Lasix 40 qd with monitoring diuretic response, renal function and electrolytes 2. Continue ASA 81 mg QD, Lopid 600 mg BID, Cardizem CD 120 mg QD, Cozaar 25 mg QD and Hytrin 5 mg QHS 3. Bronchodilator, O2 to keep SpO2 >90%, oral steroid taper, Daliresp and completed antibiotic coverage, compression therapy 4. DVT prophylaxis, mobilize, d/c planning
[2016-10-25] MEDS ORDERED: INSULIN (NOVOLOG MIX 70/30) 100 UNITS/ML MDV SQ ONE (16:30)
[2016-10-25] MEDS ORDERED: fentaNYL 75mcg/hr PATCH.TD72 TD SCH (18:00)
[2016-10-25] MEDS: FENTANYL PATCH WASTE MC PRN (19:09)
[2016-10-25] MEDS: TERAZOSIN HCL 5 MG CAPSULE PO SCH (22:33)
[2016-10-25] MEDS: SENNOSIDES 8.6MG TABLET (FP) PO SCH (22:34)
[2016-10-26] MEDS: HYDROmorphone HCL CARPU-JECT 2 MG/1 ML DISP.SYRIN IVPB PRN ×2 (02:17→10:01)
[2016-10-26] MEDS: ALBUTEROL SO4 0.083% IH SOL 2.5 MG/3 ML VIAL.NEB. NEB PRN (02:25)
[2016-10-26] MEDS: GEMFIBROZIL 600 MG TABLET (FP) PO SCH (06:15)
[2016-10-26] MEDS: INSULIN SLIDING SCALE (NOVOLOG) 1 VIAL SQ SCH (06:16)
[2016-10-26] MEDS: INSULIN DETEMIR 100 UNITS/ML MDV SQ SCH (06:16)
[2016-10-26] MEDS: ALBUTEROL SO4 0.083% IH SOL 2.5 MG/3 ML VIAL.NEB. NEB SCH ×2 (07:31→11:30)
[2016-10-26] MEDS ORDERED: PT OWN MED DRAWER 7, Y5N ONE (08:58)
[2016-10-26] MEDS: ASPIRIN 81 MG CHEWABLE TABLETS PO SCH (10:02)
[2016-10-26] MEDS: METOLAZONE 2.5 MG TABLET (FP) PO SCH (10:02)
[2016-10-26] MEDS: TAMSULOSIN HCL 0.4 MG CAP.ER.24H (FP) PO SCH (10:02)
[2016-10-26] MEDS: predniSONE 20 MG TABLET (UD) PO SCH (10:03)
[2016-10-26] MEDS: LACTULOSE 20 GM/30 ML UDC (FOR ORAL USE ONLY) PO SCH (10:03)
[2016-10-26] MEDS: LOSARTAN POTASSIUM 25 MG TABLET PO SCH (10:03)
[2016-10-26] MEDS: ROFLUMILAST 500 MCG TABLET PO SCH (10:03)
[2016-10-26] MEDS: INSULIN (NOVOLOG MIX 70/30) 100 UNITS/ML MDV SQ SCH (10:04)
[2016-10-26] MEDS: FERROUS SO4 325 MG TABLET (FP) PO SCH (10:04)
[2016-10-26] MEDS: BUDESONIDE/FORMETEROL FUMARATE 160/4.5 mcg INHALER IH SCH (10:04)
[2016-10-26] MEDS: TIOTROPIUM BROMIDE 18 MCG/INH (DEVICE W/ 5 CAPSULES) IH SCH (10:04)
[2016-10-26] MEDS: ALLOPURINOL 100 MG TABLET (FP) PO SCH (10:05)
[2016-10-26 11:19] VITALS: BP 132/68; PULSE 88; TEMP 97.8
--- NOTE | 2016-10-26 11:36 | DS ---
Physical Examination Vital Signs: Vital Signs Temperature 97.8 F 10/26/16 10:00 Pulse Rate 88 10/26/16 10:00 Respiratory Rate 20 10/26/16 10:00 Blood Pressure 132/68 10/26/16 10:00 O2 Sat by Pulse Oximetry (%) 97 10/26/16 09:00 Labs: CBC, BMP 10/22/16 09:00 10/24/16 06:20 Discharge Summary Reason For Visit: COPD/PNEUMONIA Current Active Problems Acute on chronic diastolic (congestive) heart failure (Acute) Atelectasis (Acute) Bigeminy (Acute) COPD exacerbation (Acute) Chronic back pain greater than 3 months duration (Acute) Chronic respiratory failure with hypoxia (Acute) Cough (Acute) Diabetes mellitus, insulin dependent (IDDM), uncontrolled (Acute) HTN (hypertension) (Acute) Hyperlipidemia LDL goal < 100 (Acute) Hypertriglyceridemia (Acute) Leg edema (Acute) Shortness of breath (Acute) Tachycardia (Acute) Wheeze (Acute) Hospital Course: 71 year old male with a significant past medical history of CHF, CKD, HTN, HL, DM, COPD, back pain, bph, anemia, pancreatitis, who presents to the emergency department today for further evaluation of cough since 09/28/16. The patient was recently admitted and treated for COPD and pneumonia. The patient reported that at home he is on 2L of O2 at home. per patient he says his breathing got worse when he got home after discharge and his legs started to swell up so he came to the ER,in ER he got iv steroids anb abx and he says that today his breathing slightly better - Past Medical History WATER QUALITY MANAGER: Yes: Migraine Cardiovascular: Yes: CHF, HTN, Hyperlipdemia Pulmonary: Yes: COPD, O2 Dependent Gastrointestinal: Yes: GERD Renal/: Yes: Renal Inusuff, BPH, Cancer, Hematuria, UTI, Other (CKD) Heme/Onc: Yes: Anemia Psych: Yes: Anxiety Musculoskeletal: Yes: Chronic low back pain, Osteoarthritis Endocrine: Yes: Diabetes Mellitus - Past Surgical History Past Surgical History: Yes: Colonoscopy (Done last December (2013) negative for significant pathology) - Problems (1) Leg edema Assessment/Plan: improving with iv lasix renal on board lasix TO PO ADD ZAROXYLN monitor lytes Code(s): R60.0 - LOCALIZED EDEMA Qualifiers: Laterality: bilateral Qualified Code(s): R60.0 - Localized edema (2) COPD exacerbation Assessment/Plan: pulm steroids po prednsione 30mg symbicort daliresp spiriva patient does not want turdoza oxygen [place] Code(s): J44.1 - CHRONIC OBSTRUCTIVE PULMONARY DISEASE W (ACUTE) EXACERBATION (3) HTN (hypertension) Assessment/Plan: cozaar cardizem Code(s): I10 - ESSENTIAL (PRIMARY) HYPERTENSION Qualifiers: Hypertension type: essential hypertension Qualified Code(s): I10 - Essential (primary) hypertension (4) Hypertriglyceridemia Assessment/Plan: lopoid Code(s): E78.1 - PURE HYPERGLYCERIDEMIA (5) BPH (benign prostatic hyperplasia) Assessment/Plan: hytrin and flomax Code(s): N40.0 - BENIGN PROSTATIC HYPERPLASIA WITHOUT LOWER URINRY TRACT SYMP (6) Chronic back pain greater than 3 months duration Assessment/Plan: fentanyl and oxycodone Code(s): M54.9 - DORSALGIA, UNSPECIFIED G89.29 - OTHER CHRONIC PAIN (7) Diabetes mellitus Assessment/Plan: patient not eating as well at home so bgm dropping wants chase sausage yogurt banana insulin 15 units stop januvia Code(s): E11.9 - TYPE 2 DIABETES MELLITUS WITHOUT COMPLICATIONS Qualifiers: Diabetes mellitus type: type 2 Diabetes mellitus complication status: without complication Diabetes mellitus bed bug exterminator insulin use: with half-way use Qualified Code(s): E11.9 - Type 2 diabetes mellitus without complications Condition: Improved - Instructions Referrals: Misti Crenshaw MD [Primary Care Provider] - Disposition: HOME - Home Medications Comprehensive Discharge Medication List: Ambulatory Orders Aspirin [ASA -] 81 mg PO Q2D@1000 #30 tab.chew 12/27/14 Gemfibrozil [Lopid -] 600 mg PO BID #180 tablet 12/27/14 Terazosin HCl [Hytrin -] 5 mg PO HS #30 capsule 12/27/14 Cyanocobalamin [Vitamin B12 -] 1 g PO DAILY 12/19/15 Lactulose 10 gm PO DAILY 12/20/15 Iron 325 mg PO BID 02/22/16 Tamsulosin HCl [Flomax -] 0.4 mg PO BID 02/22/16 FENTANYL 75mcg PATCH [DURAGESIC 75mcg PATCH -] 1 patch TD Q72H 02/23/16 Albuterol Sulfate Inhaler - [Ventolin HFA Inhaler -] 1 - 2 inh PO Q4H #1 inhaler 03/11/16 Docusate Sodium [Colace -] 100 mg PO BID #60 capsule 03/11/16 Diltiazem Cd [Cardizem Cd -] 120 mg PO DAILY 05/05/16 Naloxegol Oxalate [Movantik] 25 mg PO DAILY PRN 05/05/16 Sitagliptin Phosphate [Januvia] 25 mg PO DAILY 05/05/16 Metoclopramide HCl [Reglan -] 5 mg PO TIDAC tablet 05/09/16 Sennosides [Senna -] 2 tab PO HS PRN #0 tablet 05/09/16 Oxycodone HCl/Acetaminophen [Percocet 10-325 mg Tablet] 1 each PO TID PRN #60 tablet MDD 3 05/10/16 Allopurinol [Zyloprim -] 100 mg PO DAILY 09/28/16 Ranitidine HCl 300 mg PO DAILY 09/28/16 Sennosides [Senokot] 8.6 mg PO DAILY 09/28/16 Acetaminophen [Tylenol .Regular Strength -] 650 mg PO Q6H PRN #0 tablet Budesonide/Formeterol Fumarate [SYMBICORT 160/4.5mcg -] 2 puff IH BID #1 inhaler 10/07/16 Buspirone HCl [Buspar -] 10 mg PO BID #60 tablet 10/07/16 Insulin Aspart Prot/Insuln Asp [Novolog Mix 70-30 Flexpen Syrn] 32 unit SQ BID # 1 box 10/07/16 Losartan Potassium [Cozaar -] 25 mg PO DAILY #30 tablet 10/07/16 Roflumilast [Daliresp -] 500 mcg PO DAILY #30 tablet 10/07/16 Sodium Chloride Nasal [place] [[place] Nasal [place] -] 2 spray NS BID PRN #1 bottle 10/07/16 Tiotropium [place] [Spiriva] 1 puff IH DAILY #1 inh 10/07/16 Furosemide [Lasix -] 80 mg PO DAILY #60 tablet 10/19/16 Prednisone 20 mg PO BID #100 tablet 10/19/16 Metolazone [Zaroxolyn -] 2.5 mg PO DAILY #14 tablet 10/26/16
--- NOTE | 2016-10-26 11:46 | PN ---
Progress Note (short form) - Note Progress Note: PULMONARY AMBULATING IN HALLWAY APPEARS STABLE VSS ANICTERIC SCATTERED RHONCHI IMPROVED S1S2 OBESE 1+ EDEMA LOWER EXT LABS/MEDS/IMAGING/NOTES REVIEWED Acute on Chronic LV Diastolic Heart Failure COPD Atelectasis Recent Pneumonia Chronic Hypoxic Respiratory Failure CKD HTN DM Hyperlipidemia - stable from pulmonary to continue treatment as an outpatient - discharge planning Jered VALE MD
== END 2016-10-26 12:00 | disposition home or self-care (01) | DRG 291 ==
LOC: JER 15:22 → JERBED 19:25 → J8W 10-15 11:22
PROVIDERS: ADMIT Family Medicine; ATTEND Family Medicine
DX: I13.0 Hypertensive heart and chronic kidney disease with heart failure and stage 1 through stage 4 chronic kidney disease, or unspecified chronic kidney disease (principal); I50.33 Acute on chronic diastolic (congestive) heart failure; J44.1 Chronic obstructive pulmonary disease with (acute) exacerbation; J96.11 Chronic respiratory failure with hypoxia; J98.11 Atelectasis; R60.0 Localized edema; M47.9 Spondylosis, unspecified; G89.29 Other chronic pain; N18.9 Chronic kidney disease, unspecified; D64.9 Anemia, unspecified; E78.00 Pure hypercholesterolemia, unspecified; N40.0 Benign prostatic hyperplasia without lower urinary tract symptoms; Z99.81 Dependence on supplemental oxygen; K21.9 Gastro-esophageal reflux disease without esophagitis; F41.9 Anxiety disorder, unspecified; Z87.891 Personal history of nicotine dependence; Z87.01 Personal history of pneumonia (recurrent); E10.65 Type 1 diabetes mellitus with hyperglycemia; Z79.4 Long term (current) use of insulin; E66.9 Obesity, unspecified; Z68.36 Body mass index [BMI] 36.0-36.9, adult
CPT/HCPCS: 36415; 71010-TC; 71020-TC; 80048; 80053; 81003; 82550; 82553; 83036; 83735; 83880; 84484; 85025; 85610; 87070; 87086; 87205; 87254; 87804; 87899; 93005; 93010; 93306-TC; 94640; 99283-25; 99285-25; J1644

== ENCOUNTER 2016-11-22 15:36 | Inpatient (IN) | payer OTHER ==
--- NOTE | 2016-11-22 15:39 | PDOC ---
Rapid Medical Evaluation Time Seen by Provider: 11/22/16 15:38 Medical Evaluation: Allergies Allergy/AdvReac Type Severity Reaction Status Date / Time No Known Drug Allergies Allergy Verified 10/15/16 10:44 HOT PEPPER Allergy SNEEZING Uncoded 10/15/16 10:44 11/22/16 15:39 71 year old male with a history of COPD, IDDM, CHF, HLD who presents with shortness of breath unrelieved by nebulizers. Cough productive of scant sputum. He had some chest pain this morning but has none currently. Was seen by Dr. Lawton this morning and referred here. V/s within normal limits +Expiratory wheezing with scattered ronchi -EKG -Cardiac labs -DuoNeb
[2016-11-22] MEDS ORDERED: ALBUTEROL SO4 2.5/IPRATROPIUM 0.5 INH SOL 3 ML VIAL.NEB. NEB ONE ×2 (15:44→16:15)
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
[2016-11-22] MEDS ORDERED: ACETYLCYSTEINE 20% 200MG/ML 30 ML VIAL *FOR ORAL / INH USE ONLY NEB ONE (16:51)
--- NOTE | 2016-11-22 16:54 | PDOC ---
Attending Attestation - Resident Resident Name: SmithpatrenettaMarcy - ED Attending Attestation I have performed the following: I have examined & evaluated the patient, The case was reviewed & discussed with the resident, I agree w/resident's findings & plan, Exceptions are as noted - HPI HPI: 11/22/16 16:52 71 year old male with a significant PMH of COPD, on home Oxygen , DM, CHF, HLD referred to ED from Dr. Lawton office for persistent SOB, wheezing, and coughing. The patient reports that for the last several months, he has been having worsening breathing difficulties, wheezing and coughing, despite several hospitalizations. Pt was sent to the ED by Dr. Lawton for admission for workup for COPD vs. and/or CHF. - Physicial Exam PE: 11/22/16 16:52 GENERAL: Awake, alert, and fully oriented, in no acute distress. HEAD: No signs of trauma EYES: PERRLA, EOMI, sclera anicteric, conjunctiva clear ENT: Auricles normal inspection, hearing grossly normal, nares patent, oropharynx clear without exudates. NECK: Normal ROM, supple, no lymphadenopathy, JVD, or masses LUNGS: Diffuse ronchi and wheezing throughout. HEART: Regular rate and rhythm, normal S1 and S2, no murmurs, rubs or gallops ABDOMEN: Soft, nontender, normoactive bowel sounds. No guarding, no rebound. No masses EXTREMITIES: Normal range of motion, no edema. No clubbing or cyanosis. No cords, erythema, or tenderness NEUROLOGICAL: Cranial nerves II through XII grossly intact. Normal speech, normal gait SKIN: Warm, Dry, normal turgor, no rashes or lesions noted. - Medical Decision Making 11/22/16 16:53 ECG: NSR 81, left axis deviation, nostd/robby, QTC 413 msec A&P: Will need treatments/nebulizers. Differential includes COPD, CHF. I agree with plan to admit for further workup. Consult Dr. Baca and Dr. Lawton for further management.
[2016-11-22] MEDS ORDERED: ACETYLCYSTEINE 20% 200MG/ML 4 ML VIAL *FOR ORAL / INH USE ONLY ONE (17:16)
[2016-11-22 17:31] LABS: BASOPHIL 0.2 % (0-2.0); EOSINOPHIL 0.2 % (0-4.5); MCH 30.8 pg (25.7-33.7); MCHC 33.6 g/dl (32.0-35.9); MEAN CELL VOLUME 91.5 fl (80-96); MEAN PLT VOLUME 8.8 fl (7.5-11.1); NEUTROPHILS 82.8 % (42.8-82.8); PLATELET COUNT 231 K/MM3 (134-434); RDW 16.8 % (11.9-15.9); WHITE BLOOD COUNT 10.8 K/mm3 (4.0-10.0)
--- NOTE | 2016-11-22 17:32 | CON.CARD ---
Consult Consult Specialty:: Cardiology Referred by:: Raza Mendes MD Reason for Consultation:: Dyspnea - History of Present Illness Chief Complaint: Dyspnea History of Present Illness: Patient is a 71 year old male with history of COPD with previous multiple exacerbations, chronic hypoxic respiratory failure on home O2,, HTN/HCVD, insulin-dependent Type 2 DM, anemia, LV diastolic dysfunction, and hypercholesterolemia presented with worsening shortness of breath, orthopnea, LE edema without chest pain, near or true syncope, palpitations. Reports a nonproductive cough and occasional wheezing, compliance with medication and diet , similar presentation to last October. 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 Cardio/Vascular: Yes: CHF, HTN, Hyperlipdemia Pulmonary: Yes: COPD, O2 Dependent Gastrointestinal: Yes: GERD Renal/: Yes: Renal Inusuff, BPH, Cancer, Hematuria, UTI, Other (CKD) Psych: Yes: Anxiety Musculoskeletal: Yes: Chronic low back pain, Osteoarthritis Endocrine: Yes: Diabetes Mellitus - Past Surgical History Past Surgical History: Yes: Colonoscopy (Done last December (2013) negative for significant pathology) - Alcohol/Substance Use Hx Alcohol Use: No - Smoking History Smoking history: Former smoker Have you smoked in the past 12 months: Yes Aproximately how many cigarettes per day: 2 If you are a former smoker, when did you quit?: 2012 - Social History Usual Living Arrangement: Alone Home Medications - Allergies Allergies/Adverse Reactions: Allergies Allergy/AdvReac Type Severity Reaction Status Date / Time No Known Drug Allergies Allergy Verified 11/22/16 15:42 HOT PEPPER Allergy SNEEZING Uncoded 11/22/16 15:42 - Home Medications Home Medications: Ambulatory Orders Aspirin [ASA -] 81 mg PO Q2D@1000 #30 tab.chew 12/27/14 Gemfibrozil [Lopid -] 600 mg PO BID #180 tablet 12/27/14 Terazosin HCl [Hytrin -] 5 mg PO HS #30 capsule 12/27/14 Cyanocobalamin [Vitamin B12 -] 1 g PO DAILY 12/19/15 Lactulose 10 gm PO DAILY 12/20/15 Iron 325 mg PO BID 02/22/16 Tamsulosin HCl [Flomax -] 0.4 mg PO BID 02/22/16 FENTANYL 75mcg PATCH [DURAGESIC 75mcg PATCH -] 1 patch TD Q72H 02/23/16 Albuterol Sulfate Inhaler - [Ventolin HFA Inhaler -] 1 - 2 inh PO Q4H #1 inhaler 03/11/16 Docusate Sodium [Colace -] 100 mg PO BID #60 capsule 03/11/16 Diltiazem Cd [Cardizem Cd -] 120 mg PO DAILY 05/05/16 Naloxegol Oxalate [Movantik] 25 mg PO DAILY PRN 05/05/16 Sitagliptin Phosphate [Januvia] 25 mg PO DAILY 05/05/16 Metoclopramide HCl [Reglan -] 5 mg PO TIDAC tablet 05/09/16 Sennosides [Senna -] 2 tab PO HS PRN #0 tablet 05/09/16 Allopurinol [Zyloprim -] 100 mg PO DAILY 09/28/16 Ranitidine HCl 300 mg PO DAILY 09/28/16 Sennosides [Senokot] 8.6 mg PO DAILY 09/28/16 Acetaminophen [Tylenol .Regular Strength -] 650 mg PO Q6H PRN #0 tablet Budesonide/Formeterol Fumarate [SYMBICORT 160/4.5mcg -] 2 puff IH BID #1 inhaler 10/07/16 Buspirone HCl [Buspar -] 10 mg PO BID #60 tablet 10/07/16 Insulin Aspart Prot/Insuln Asp [Novolog Mix 70-30 Flexpen Syrn] 32 unit SQ BID # 1 box 10/07/16 Losartan Potassium [Cozaar -] 25 mg PO DAILY #30 tablet 10/07/16 Roflumilast [Daliresp -] 500 mcg PO DAILY #30 tablet 10/07/16 Sodium Chloride Nasal [place] [[place] Nasal [place] -] 2 spray NS BID PRN #1 bottle 10/07/16 Furosemide [Lasix -] 80 mg PO DAILY #60 tablet 10/19/16 Ipratropium 0.02% Nebulizer [Atrovent 0.02% Nebulizer -] 1 amp NEB QID #120 amp 10/26/16 Metolazone [Zaroxolyn -] 2.5 mg PO DAILY #14 tablet 10/26/16 Oxycodone HCl [Roxicodone] 15 mg PO Q4HWA PRN 11/22/16 Family Disease History - Family Disease History Family Disease History: Diabetes: Brother, Heart Disease: Brother Review of Systems - Review of Systems Cardiovascular: reports: Shortness of Breath Respiratory: reports: Cough, Wheezing Vital Signs: Vital Signs Temperature 97.8 F 11/22/16 15:37 Pulse Rate 85 11/22/16 15:37 Respiratory Rate 20 11/22/16 15:37 Blood Pressure 133/68 11/22/16 15:37 O2 Sat by Pulse Oximetry (%) 97 11/22/16 15:37 Constitutional: Yes: No Distress, Calm Neck: Yes: Supple Respiratory: Yes: Regular, Diminished, On Nasal O2 Gastrointestinal: Yes: Normal Bowel Sounds, Soft Cardiovascular: Yes: Regular Rate and Rhythm JVD: No Carotid Bruit: No Heart Sounds: Yes: S1, S2 Murmur: Yes: Systolic Murmur, Grade 1 Edema: Yes Edema: LLE: 1+, RLE: 1+ - Other Data Ejection Fraction %: LVEF > or = 40 % Problem List - Problems (1) HTN (hypertension) Code(s): I10 - ESSENTIAL (PRIMARY) HYPERTENSION Qualifiers: Hypertension type: essential hypertension Qualified Code(s): I10 - Essential (primary) hypertension (2) Hyperlipidemia LDL goal < 100 Code(s): E78.5 - HYPERLIPIDEMIA, UNSPECIFIED (3) Hypertriglyceridemia Code(s): E78.1 - PURE HYPERGLYCERIDEMIA (4) Shortness of breath Code(s): R06.02 - SHORTNESS OF BREATH (5) Acute on chronic diastolic (congestive) heart failure Code(s): I50.33 - ACUTE ON CHRONIC DIASTOLIC (CONGESTIVE) HEART FAILURE (6) Acute on chronic respiratory failure with hypoxia and hypercapnia Code(s): J96.21 - ACUTE AND CHRONIC RESPIRATORY FAILURE WITH HYPOXIA J96.22 - ACUTE AND CHRONIC RESPIRATORY FAILURE WITH HYPERCAPNIA (7) COPD (chronic obstructive pulmonary disease) Code(s): J44.9 - CHRONIC OBSTRUCTIVE PULMONARY DISEASE, UNSPECIFIED Qualifiers : COPD type: chronic bronchitis (8) Diabetes mellitus Code(s): E11.9 - TYPE 2 DIABETES MELLITUS WITHOUT COMPLICATIONS Qualifiers: Diabetes mellitus type: type 2 Diabetes mellitus complication status: without complication Diabetes mellitus half-way insulin use: with long term care phlebotomist use Qualified Code(s): E11.9 - Type 2 diabetes mellitus without complications (9) Leg edema Code(s): R60.0 - LOCALIZED EDEMA Qualifiers: Laterality: bilateral Qualified Code(s): R60.0 - Localized edema Assessment/Plan 10/15/2016 Echo: Normal LV size and fxn, mild cLVH, no sig valve abnl 1. Acute on Chronic LV Diastolic Heart Failure 2. COPD with Chronic Hypoxic Respiratory Failure 3. Insulin-dependent Type 2 diabetes mellitus 4. Hypercholesterolemia 5. Anemia 6. CKD 7. HTN PLAN: 1. IV diuresis with monitoring diuretic response, renal function and electrolytes 2. Continue ASA 81 mg QD, Lopid 600 mg BID, Cardizem CD 120 mg QD, Cozaar 25 mg QD and Hytrin 5 mg QHS 3. Bronchodilator, O2 to keep SpO2 >90%, oral steroid, Daliresp and compression therapy 4. DVT prophylaxis, mobilize 5. Thank you for consultative opportunity
[2016-11-22 17:59] LABS: INR 0.96 (0.82-1.09); PROTHROMBIN TIME (PATIENT) 10.5 SEC (9.98-11.88)
[2016-11-22 18:10] LABS: ALBUMIN 3.9 g/dl (3.4-5.0); BILIRUBIN,TOTAL 0.3 mg/dL (0.2-1.0); CALCIUM 9.3 mg/dL (8.5-10.1); CREATININE 1.9 mg/dL (0.7-1.3)
[2016-11-22 18:11] LABS: TOT PROT 6.8 g/dl (6.4-8.2)
--- NOTE | 2016-11-22 18:16 | HP ---
Admitting History and Physical - Admission History of Present Illness: 71 year old male with a significant PMH of COPD, on home Oxygen , DM, CHF, HLD referred to ED from Dr. Lawton office. He is been complaining of SOB and cough since the last admission month ago. The pt is also complaining of chest pain associated with coughing. He states that he doesn't produces any sputum. He recently visited his PCP and is still taking Azithromycin. He denies fever chills, abdominal pain, N/V, diarrhea, constipation. He denies headache, dizziness, dysuria, increased frequency, urgency. 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 Cardiovascular: Yes: CHF, HTN, Hyperlipdemia Pulmonary: Yes: COPD, O2 Dependent Gastrointestinal: Yes: GERD Renal/: Yes: Renal Inusuff, BPH, Cancer, Hematuria, UTI, Other (CKD) Heme/Onc: Yes: Anemia Psych: Yes: Anxiety Musculoskeletal: Yes: Chronic low back pain, Osteoarthritis Endocrine: Yes: Diabetes Mellitus - Past Surgical History Past Surgical History: Yes: Colonoscopy (Done last December) negative for significant pathology) - Smoking History Smoking history: Former smoker Have you smoked in the past 12 months: Yes Aproximately how many cigarettes per day: 2 If you are a former smoker, when did you quit?: 2013 - Alcohol/Substance Use Hx Alcohol Use: No Home Medications - Allergies Allergies/Adverse Reactions: Allergies Allergy/AdvReac Type Severity Reaction Status Date / Time No Known Drug Allergies Allergy Verified 11/22/16 15:42 HOT PEPPER Allergy SNEEZING Uncoded 11/22/16 15:42 - Home Medications Home Medications: Ambulatory Orders Aspirin [ASA -] 81 mg PO Q2D@1000 #30 tab.chew 12/27/14 Gemfibrozil [Lopid -] 600 mg PO BID #180 tablet 12/27/14 Terazosin HCl [Hytrin -] 5 mg PO HS #30 capsule 12/27/14 Cyanocobalamin [Vitamin B12 -] 1 g PO DAILY 12/19/15 Lactulose 10 gm PO DAILY 12/20/15 Iron 325 mg PO BID 02/22/16 Tamsulosin HCl [Flomax -] 0.4 mg PO BID 02/22/16 FENTANYL 75mcg PATCH [DURAGESIC 75mcg PATCH -] 1 patch TD Q72H 02/23/16 Albuterol Sulfate Inhaler - [Ventolin HFA Inhaler -] 1 - 2 inh PO Q4H #1 inhaler 03/11/16 Docusate Sodium [Colace -] 100 mg PO BID #60 capsule 03/11/16 Diltiazem Cd [Cardizem Cd -] 120 mg PO DAILY 05/05/16 Naloxegol Oxalate [Movantik] 25 mg PO DAILY PRN 05/05/16 Sitagliptin Phosphate [Januvia] 25 mg PO DAILY 05/05/16 Metoclopramide HCl [Reglan -] 5 mg PO TIDAC tablet 05/09/16 Sennosides [Senna -] 2 tab PO HS PRN #0 tablet 05/09/16 Allopurinol [Zyloprim -] 100 mg PO DAILY 09/28/16 Ranitidine HCl 300 mg PO DAILY 09/28/16 Sennosides [Senokot] 8.6 mg PO DAILY 09/28/16 Acetaminophen [Tylenol .Regular Strength -] 650 mg PO Q6H PRN #0 tablet Budesonide/Formeterol Fumarate [SYMBICORT 160/4.5mcg -] 2 puff IH BID #1 inhaler 10/07/16 Buspirone HCl [Buspar -] 10 mg PO BID #60 tablet 10/07/16 Insulin Aspart Prot/Insuln Asp [Novolog Mix 70-30 Flexpen Syrn] 32 unit SQ BID # 1 box 10/07/16 Losartan Potassium [Cozaar -] 25 mg PO DAILY #30 tablet 10/07/16 Roflumilast [Daliresp -] 500 mcg PO DAILY #30 tablet 10/07/16 Sodium Chloride Nasal [place] [[place] Nasal [place] -] 2 spray NS BID PRN #1 bottle 10/07/16 Furosemide [Lasix -] 80 mg PO DAILY #60 tablet 10/19/16 Ipratropium 0.02% Nebulizer [Atrovent 0.02% Nebulizer -] 1 amp NEB QID #120 amp 10/26/16 Metolazone [Zaroxolyn -] 2.5 mg PO DAILY #14 tablet 10/26/16 Oxycodone HCl [Roxicodone] 15 mg PO Q4HWA PRN 11/22/16 Family Disease History - Family Disease History Family Disease History: Diabetes: Brother, Heart Disease: Brother Physical Examination Vital Signs: Vital Signs Temperature 97.8 F 11/22/16 15:37 Pulse Rate 85 11/22/16 15:37 Respiratory Rate 20 11/22/16 15:37 Blood Pressure 133/68 11/22/16 15:37 O2 Sat by Pulse Oximetry (%) 97 11/22/16 15:37 Cardiovascular: Yes: Murmur, S1, S2 Respiratory: Yes: Diminished, Rales, Rhonchi Gastrointestinal: Yes: Normal Bowel Sounds, Soft Edema: Yes Edema: LLE: 1+, RLE: 1+ Labs: CBC, BMP 11/22/16 17:00 Problem List - Problems (1) COPD (chronic obstructive pulmonary disease) Assessment/Plan: IV STEROIDS PULM CONSULT NEBS Code(s): J44.9 - CHRONIC OBSTRUCTIVE PULMONARY DISEASE, UNSPECIFIED Qualifiers : COPD type: chronic bronchitis (2) Acute on chronic diastolic (congestive) heart failure Assessment/Plan: IV LASIX CARDIO Code(s): I50.33 - ACUTE ON CHRONIC DIASTOLIC (CONGESTIVE) HEART FAILURE (3) Diabetes mellitus, insulin dependent (IDDM), uncontrolled Assessment/Plan: BGM ENDO Code(s): E10.65 - TYPE 1 DIABETES MELLITUS WITH HYPERGLYCEMIA Qualifiers: Diabetes mellitus complication status: without complication Qualified Code(s): E10.9 - Type 1 diabetes mellitus without complications (4) HTN (hypertension) Assessment/Plan: SAME MEDS Code(s): I10 - ESSENTIAL (PRIMARY) HYPERTENSION Qualifiers: Hypertension type: essential hypertension Qualified Code(s): I10 - Essential (primary) hypertension
[2016-11-22 18:18] LABS: TROPONIN I < 0.02 ng/ml (0.00-0.05)
[2016-11-22] MEDS ORDERED: ACETAMINOPHEN 325 MG TABLET (FP) PO PRN (18:22)
[2016-11-22] MEDS ORDERED: SENNOSIDES 8.6MG TABLET (FP) PO PRN (18:22)
[2016-11-22] MEDS ORDERED: SODIUM CHLORIDE NASAL SPRAY 44 ML BOTTLE NS PRN (18:22)
[2016-11-22] MEDS ORDERED: PATIENT'S OWN MEDICATION (NON-FORMULARY) (Naloxegol Oxalate [Movantik] 25 MG) PO PRN (18:22)
[2016-11-22] MEDS ORDERED: FENTANYL PATCH WASTE TD PRN (18:58)
[2016-11-22] MEDS: methylPREDNISolone NA SUCC 40 MG/1 ML VIAL IVPB SCH (20:32)
[2016-11-22] MEDS: FERROUS SO4 325 MG TABLET (FP) PO SCH (21:59)
[2016-11-22] MEDS: DOCUSATE SODIUM 100 MG CAPSULE (FP) PO SCH (21:59)
[2016-11-22] MEDS ORDERED: HYDROmorphone HCL CARPU-JECT 1 MG/1 ML DISP.SYRIN IVPB SCH (22:00)
[2016-11-22] MEDS: TAMSULOSIN HCL 0.4 MG CAP.ER.24H (FP) PO SCH (22:00)
[2016-11-22] MEDS: HEPARIN NA (PORCINE) 5,000 UNITS/ML 1ML VIAL SQ SCH (22:00)
[2016-11-22] MEDS: TERAZOSIN HCL 5 MG CAPSULE PO SCH (22:01)
[2016-11-22] MEDS: fentaNYL 75mcg/hr PATCH.TD72 TD SCH (22:05)
[2016-11-22] MEDS: busPIRone HCL 5 MG TABLET PO SCH (22:07)
[2016-11-22] MEDS: INSULIN SLIDING SCALE (NOVOLOG) 1 VIAL SQ SCH (22:40)
[2016-11-22] MEDS: BUDESONIDE/FORMETEROL FUMARATE 160/4.5 mcg INHALER IH SCH (22:40)
[2016-11-22] MEDS: ALBUTEROL SO4 2.5/IPRATROPIUM 0.5 INH SOL 3 ML VIAL.NEB. NEB PRN (22:45)
[2016-11-22] MEDS ORDERED: HYDROmorphone HCL CARPU-JECT 1 MG/1 ML DISP.SYRIN IVPB ONE (23:45)
[2016-11-23 02:02] VITALS: BMI 39.2
[2016-11-23] MEDS: methylPREDNISolone NA SUCC 40 MG/1 ML VIAL IVPB SCH ×4 (02:50→21:15)
[2016-11-23] MEDS: FUROSEMIDE 40 MG/4 ML INJECTABLE VIAL IVPUSH SCH ×2 (06:11→14:50)
[2016-11-23] MEDS: sitaGLIPtin PHOSPHATE 25 MG TABLET (FP) PO SCH (06:56)
[2016-11-23] MEDS: METOCLOPRAMIDE HCL 10 MG TABLET (FP) PO SCH ×3 (06:56→18:01)
[2016-11-23] MEDS: GEMFIBROZIL 600 MG TABLET (FP) PO SCH ×2 (06:57→18:01)
[2016-11-23] MEDS ORDERED: INSULIN (NOVOLOG MIX 70/30) 100 UNITS/ML MDV SQ SCH (07:00)
[2016-11-23] MEDS: INSULIN SLIDING SCALE (NOVOLOG) 1 VIAL SQ SCH ×4 (07:03→21:28)
[2016-11-23 08:52] LABS: BASOPHIL 0.1 % (0-2.0); MCH 29.9 pg (25.7-33.7); MCHC 32.5 g/dl (32.0-35.9); MEAN PLT VOLUME 9.4 fl (7.5-11.1); NEUTROPHILS 93.5 % (42.8-82.8); PLATELET COUNT 198 K/MM3 (134-434); RDW 16.7 % (11.9-15.9); WHITE BLOOD COUNT 11.5 K/mm3 (4.0-10.0)
[2016-11-23] MEDS: busPIRone HCL 5 MG TABLET PO SCH ×2 (09:13→10:39)
[2016-11-23 09:19] LABS: ALBUMIN 3.4 g/dl (3.4-5.0)
[2016-11-23 09:32] LABS: ALK PHOS 40 U/L (45-117); ANION GAP 15 (8-16); BILIRUBIN,TOTAL 0.3 mg/dL (0.2-1.0); CALCIUM 8.6 mg/dL (8.5-10.1); CO2 27 mmol/L (21-32); SGOT/AST 10 U/L (15-37); SGPT/ALT 18 U/L (12-78); TOT PROT 6.4 g/dl (6.4-8.2); TROPONIN I < 0.02 ng/ml (0.00-0.05)
[2016-11-23 09:38] LABS: GLUCOSE,RANDOM 408 mg/dL (74-106)
[2016-11-23] MEDS ORDERED: FUROSEMIDE 40 MG TABLET (FP) PO SCH (10:00)
[2016-11-23] MEDS: ALBUTEROL SO4 2.5/IPRATROPIUM 0.5 INH SOL 3 ML VIAL.NEB. NEB PRN (10:07)
--- NOTE | 2016-11-23 10:07 | EKG ---
Test Reason : Blood Pressure : / mmHG Vent. Rate : 081 BPM Atrial Rate : 081 BPM P-R Int : 166 ms QRS Dur : 084 ms QT Int : 356 ms P-R-T Axes : 032 -31 067 degrees QTc Int : 413 ms NORMAL SINUS RHYTHM POSSIBLE LEFT ATRIAL ENLARGEMENT LEFT AXIS DEVIATION ABNORMAL ECG Confirmed by SHASHANK GUTIERREZ MD ([id number]) on 11/23/2016 10:07:45 AM Referred By: Confirmed By:SHASHANK GUTIERREZ MD
[2016-11-23] MEDS: FERROUS SO4 325 MG TABLET (FP) PO SCH ×2 (10:39→21:19)
[2016-11-23] MEDS: DOCUSATE SODIUM 100 MG CAPSULE (FP) PO SCH ×2 (10:39→21:19)
[2016-11-23] MEDS: RANITIDINE HCL 150 MG TABLET (FP) PO SCH (10:39)
[2016-11-23] MEDS: TAMSULOSIN HCL 0.4 MG CAP.ER.24H (FP) PO SCH ×2 (10:39→21:19)
[2016-11-23] MEDS: LOSARTAN POTASSIUM 25 MG TABLET PO SCH (10:40)
[2016-11-23] MEDS: ALLOPURINOL 100 MG TABLET (FP) PO SCH (10:40)
[2016-11-23] MEDS: HYDROmorphone HCL CARPU-JECT 2 MG/1 ML DISP.SYRIN IVPB SCH ×2 (10:40→21:17)
[2016-11-23] MEDS: ROFLUMILAST 500 MCG TABLET PO SCH (10:41)
[2016-11-23] MEDS: LACTULOSE 20 GM/30 ML UDC (FOR ORAL USE ONLY) PO SCH (10:41)
[2016-11-23] MEDS: HEPARIN NA (PORCINE) 5,000 UNITS/ML 1ML VIAL SQ SCH ×2 (10:42→21:20)
[2016-11-23] MEDS: BUDESONIDE/FORMETEROL FUMARATE 160/4.5 mcg INHALER IH SCH ×3 (10:42→21:24)
--- NOTE | 2016-11-23 11:13 | PN ---
Progress Note, Physician History of Present Illness: Shortness of breath, orthopnea, LE edema improved with diuresis. Still reports a nonproductive cough and occasional wheezing. - Current Medication List Current Medications: Active Medications Acetaminophen (Tylenol -) 650 mg PO Q6H PRN PRN Reason: FEVER OR PAIN Albuterol/Ipratropium (Duoneb -) 1 amp NEB Q6H PRN PRN Reason: SHORTNESS OF BREATH Last Admin: 11/23/16 10:07 Dose: 1 amp Allopurinol (Zyloprim -) 100 mg PO DAILY COUNT [facility]CLUDES [facility] Last Admin: 11/23/16 10:40 Dose: 100 mg Aspirin (Asa -) 81 mg PO Q2D@1000 [facility] Budesonide/Formoterol Fumarate (Symbicort 160/4.5mcg -) 2 puff IH BID COUNT INCLUDES [facility] Last Admin: 11/23/16 10:55 Dose: 2 puff Buspirone HCl (Buspar -) 10 mg PO BID COUNT [facility]CLUDES [facility] Last Admin: 11/23/16 10:39 Dose: 10 mg Diltiazem HCl (Cardizem Cd -) 120 mg PO DAILY COUNT [facility]CLUDES [facility] Last Admin: 11/23/16 10:39 Dose: 120 mg Docusate Sodium (Colace -) 100 mg PO BID COUNT [facility]CLUD[facility] Last Admin: 11/23/16 10:39 Dose: 100 mg Fentanyl (Duragesic 75mcg Patch -) 1 patch TD Q72H COUNT [facility]CLUDES [facility] Last Admin: 11/22/16 22:05 Dose: 1 patch Ferrous Sulfate (Feosol -) 325 mg PO BID COUNT [facility]CLUDES [facility] Last Admin: 11/23/16 10:39 Dose: 325 mg Furosemide (Lasix Injection -) 40 mg IVPUSH BID@0600,1400 [facility] Last Admin: 11/23/16 06:11 Dose: 40 mg Gemfibrozil (Lopid -) 600 mg PO BIDAC COUNT INCLUDES [facility] Last Admin: 11/23/16 06:57 Dose: 600 mg Heparin Sodium (Porcine) (Heparin -) 5,000 unit SQ BID COUNT [facility]CLUDES [facility] Last Admin: 11/23/16 10:42 Dose: 5,000 unit Hydromorphone HCl (Dilaudid Injection -) 2 mg IVPB BID COUNT [facility]CLUDES [facility] Last Admin: 11/23/16 10:40 Dose: 2 mg Insulin Aspart (Novolog Mix 70/30 Vial) 32 units SQ BIDAC COUNT [facility]CLUDES [facility] Last Admin: 11/23/16 07:02 Dose: 32 units Insulin Aspart (Novolog Vial Sliding Scale -) 1 vial SQ ACHS COUNT INCLUDES [facility] PRN Reason: Protocol Last Admin: 11/23/16 10:55 Dose: 7 units Lactulose (Cephulac (Oral Use)) 10 gm PO DAILY COUNT [facility]CLUDES [facility] Last Admin: 11/23/16 10:41 Dose: 10 gm Losartan Potassium (Cozaar -) 25 mg PO DAILY COUNT [facility]CLUD[facility] Last Admin: 11/23/16 10:40 Dose: 25 mg Methylprednisolone Sodium Succinate (Solu-Medrol -) 40 mg IVPB Q6H-IV COUNT [facility]CLUDES [facility] Last Admin: 11/23/16 08:39 Dose: 40 mg Metoclopramide HCl (Reglan -) 5 mg PO TIDAC COUNT [facility]CLUDES [facility] Last Admin: 11/23/16 10:39 Dose: 5 mg Miscellaneous (Duragesic Patch Waste) 1 each TD PRN PRN Non-Formulary Medication (Naloxegol Oxalate [Movantik]) 25 mg PO DAILY PRN PRN Reason: CONSTIPATION Ranitidine HCl (Zantac -) 300 mg PO DAILY COUNT [facility]CLUD[facility] Last Admin: 11/23/16 10:39 Dose: 300 mg Roflumilast (Daliresp -) 500 mcg PO DAILY COUNT [facility]CLUD[facility] Last Admin: 11/23/16 10:41 Dose: Not Given Senna (Senna -) 2 tab PO HS PRN PRN Reason: CONSTIPATION Last Admin: 11/22/16 22:03 Dose: 2 tab Sitagliptin Phosphate (Januvia -) 25 mg PO DAILY@0700 [facility] Last Admin: 11/23/16 06:56 Dose: 25 mg Sodium Chloride ([place] Nasal [place] -) 2 spray NS BID PRN PRN Reason: NASAL CONGESTION Last Admin: 11/23/16 10:40 Dose: 2 spray Tamsulosin HCl (Flomax -) 0.4 mg PO BID COUNT [facility]CLUDES [facility] Last Admin: 11/23/16 10:39 Dose: 0.4 mg Terazosin HCl (Hytrin -) 5 mg PO HS COUNT [facility]CLUDES [facility] Last Admin: 11/22/16 22:01 Dose: 5 mg - Objective Vital Signs: Vital Signs Temperature 97.8 F 11/23/16 06:00 Pulse Rate 88 11/23/16 06:00 Respiratory Rate 20 11/23/16 06:00 Blood Pressure 142/71 11/23/16 06:00 O2 Sat by Pulse Oximetry (%) 96 11/23/16 03:25 Constitutional: Yes: No Distress, Calm Neck: Yes: Supple Cardiovascular: Yes: Regular Rate and Rhythm Respiratory: Yes: Regular, Cough, Diminished, On Nasal O2, Wheezes Gastrointestinal: Yes: Normal Bowel Sounds, Soft, Abdomen, Obese Edema: Yes Edema: LLE: Trace, RLE: Trace Labs: CBC, BMP 11/23/16 06:30 11/23/16 06:30 INR, PTT INR 0.96 (0.82-1.09) 11/22/16 17:00 - ....Imaging Chest X-ray: Report Reviewed (NAD) Problem List - Problems (1) HTN (hypertension) Code(s): I10 - ESSENTIAL (PRIMARY) HYPERTENSION Qualifiers: Hypertension type: essential hypertension Qualified Code(s): I10 - Essential (primary) hypertension (2) Hyperlipidemia LDL goal < 100 Code(s): E78.5 - HYPERLIPIDEMIA, UNSPECIFIED (3) Hypertriglyceridemia Code(s): E78.1 - PURE HYPERGLYCERIDEMIA (4) Shortness of breath Code(s): R06.02 - SHORTNESS OF BREATH (5) Acute on chronic diastolic (congestive) heart failure Code(s): I50.33 - ACUTE ON CHRONIC DIASTOLIC (CONGESTIVE) HEART FAILURE (6) Acute on chronic respiratory failure with hypoxia and hypercapnia Code(s): J96.21 - ACUTE AND CHRONIC RESPIRATORY FAILURE WITH HYPOXIA J96.22 - ACUTE AND CHRONIC RESPIRATORY FAILURE WITH HYPERCAPNIA (7) COPD (chronic obstructive pulmonary disease) Code(s): J44.9 - CHRONIC OBSTRUCTIVE PULMONARY DISEASE, UNSPECIFIED Qualifiers : COPD type: chronic bronchitis (8) Diabetes mellitus Code(s): E11.9 - TYPE 2 DIABETES MELLITUS WITHOUT COMPLICATIONS Qualifiers: Diabetes mellitus type: type 2 Diabetes mellitus complication status: without complication Diabetes mellitus prison insulin use: with intermediate project manager use Qualified Code(s): E11.9 - Type 2 diabetes mellitus without complications (9) Leg edema Code(s): R60.0 - LOCALIZED EDEMA Qualifiers: Laterality: bilateral Qualified Code(s): R60.0 - Localized edema Assessment/Plan 10/15/2016 Echo: Normal LV size and fxn, mild cLVH, no sig valve abnl 1. Acute on Chronic LV Diastolic Heart Failure 2. COPD with Chronic Hypoxic Respiratory Failure 3. Insulin-dependent Type 2 diabetes mellitus not at optimal goal control Ha1c 8.4% 4. Hypercholesterolemia 5. Anemia 6. CKD 7. HTN PLAN: 1. Lasix 40 IV bid with monitoring diuretic response, renal function and electrolytes, tighten glycemic control 2. Continue ASA 81 mg QD, Lopid 600 mg BID, Cardizem CD 120 mg QD, Cozaar 25 mg QD and Hytrin 5 mg QHS 3. Bronchodilator, O2 to keep SpO2 >90%, IV steroid, Daliresp and compression therapy 4. DVT and GI prophylaxis, mobilize
--- NOTE | 2016-11-23 12:45 | PN ---
Progress Note, Physician Chief Complaint: patient slept last night with the bipap - Current Medication List Current Medications: Active Medications Acetaminophen (Tylenol -) 650 mg PO Q6H PRN PRN Reason: FEVER OR PAIN Albuterol/Ipratropium (Duoneb -) 1 amp NEB Q6H PRN PRN Reason: SHORTNESS OF BREATH Last Admin: 11/23/16 10:07 Dose: 1 amp Allopurinol (Zyloprim -) 100 mg PO DAILY [facility] Last Admin: 11/23/16 10:40 Dose: 100 mg Aspirin (Asa -) 81 mg PO Q2D@1000 [facility] Budesonide/Formoterol Fumarate (Symbicort 160/4.5mcg -) 2 puff IH BID [facility] Last Admin: 11/23/16 10:55 Dose: 2 puff Buspirone HCl (Buspar -) 10 mg PO BID [facility] Last Admin: 11/23/16 09:13 Dose: Not Given Diltiazem HCl (Cardizem Cd -) 120 mg PO DAILY [facility] Last Admin: 11/23/16 10:39 Dose: 120 mg Docusate Sodium (Colace -) 100 mg PO BID [facility] Last Admin: 11/23/16 10:39 Dose: 100 mg Fentanyl (Duragesic 75mcg Patch -) 1 patch TD Q72H [facility] Last Admin: 11/22/16 22:05 Dose: 1 patch Ferrous Sulfate (Feosol -) 325 mg PO BID [facility] Last Admin: 11/23/16 10:39 Dose: 325 mg Furosemide (Lasix Injection -) 40 mg IVPUSH BID@0600,1400 [facility] Last Admin: 11/23/16 06:11 Dose: 40 mg Gemfibrozil (Lopid -) 600 mg PO BIDAC [facility] Last Admin: 11/23/16 06:57 Dose: 600 mg Heparin Sodium (Porcine) (Heparin -) 5,000 unit SQ BID [facility] Last Admin: 11/23/16 10:42 Dose: 5,000 unit Hydromorphone HCl (Dilaudid Injection -) 2 mg IVPB BID [facility] Last Admin: 11/23/16 10:40 Dose: 2 mg Insulin Aspart (Novolog Mix 70/30 Vial) 32 units SQ BIDAC [facility] Last Admin: 11/23/16 07:02 Dose: 32 units Insulin Aspart (Novolog Vial Sliding Scale -) 1 vial SQ ACHS [facility] PRN Reason: Protocol Last Admin: 11/23/16 10:55 Dose: 7 units Lactulose (Cephulac (Oral Use)) 10 gm PO DAILY [facility] Last Admin: 11/23/16 10:41 Dose: 10 gm Losartan Potassium (Cozaar -) 25 mg PO DAILY [facility] Last Admin: 11/23/16 10:40 Dose: 25 mg Methylprednisolone Sodium Succinate (Solu-Medrol -) 40 mg IVPB Q6H-IV [facility] Last Admin: 11/23/16 08:39 Dose: 40 mg Metoclopramide HCl (Reglan -) 5 mg PO TIDAC [facility] Last Admin: 11/23/16 10:39 Dose: 5 mg Miscellaneous (Duragesic Patch Waste) 1 each TD PRN PRN Non-Formulary Medication (Naloxegol Oxalate [Movantik]) 25 mg PO DAILY PRN PRN Reason: CONSTIPATION Ranitidine HCl (Zantac -) 300 mg PO DAILY [facility] Last Admin: 11/23/16 10:39 Dose: 300 mg Roflumilast (Daliresp -) 500 mcg PO DAILY [facility] Last Admin: 11/23/16 10:41 Dose: Not Given Senna (Senna -) 2 tab PO HS PRN PRN Reason: CONSTIPATION Last Admin: 11/22/16 22:03 Dose: 2 tab Sitagliptin Phosphate (Januvia -) 25 mg PO DAILY@0700 [facility] Last Admin: 11/23/16 06:56 Dose: 25 mg Sodium Chloride ([place] Nasal [place] -) 2 spray NS BID PRN PRN Reason: NASAL CONGESTION Last Admin: 11/23/16 10:40 Dose: 2 spray Tamsulosin HCl (Flomax -) 0.4 mg PO BID [facility] Last Admin: 11/23/16 10:39 Dose: 0.4 mg Terazosin HCl (Hytrin -) 5 mg PO HS [facility] Last Admin: 11/22/16 22:01 Dose: 5 mg Tiotropium [place] (Spiriva -) 1 puff IH DAILY [facility] - Objective Vital Signs: Vital Signs Temperature 97.8 F 11/23/16 06:00 Pulse Rate 88 11/23/16 06:00 Respiratory Rate 20 11/23/16 06:00 Blood Pressure 142/71 11/23/16 06:00 O2 Sat by Pulse Oximetry (%) 96 11/23/16 03:25 Constitutional: Yes: Calm Neck: Yes: Trachea Midline Cardiovascular: Yes: Regular Rate and Rhythm, S1, S2 Respiratory: Yes: Wheezes (scattered) Gastrointestinal: Yes: Normal Bowel Sounds, Soft Edema: Yes (amparo stocking) Neurological: Yes: Alert, Oriented Labs: CBC, BMP 11/23/16 06:30 11/23/16 06:30 INR, PTT INR 0.96 (0.82-1.09) 11/22/16 17:00 Problem List - Problems (1) Acute on chronic diastolic (congestive) heart failure Assessment/Plan: iv lasix continue other cardiac meds will monitor renal fucntion Code(s): I50.33 - ACUTE ON CHRONIC DIASTOLIC (CONGESTIVE) HEART FAILURE (2) BPH (benign prostatic hyperplasia) Assessment/Plan: flomax Code(s): N40.0 - BENIGN PROSTATIC HYPERPLASIA WITHOUT LOWER URINRY TRACT SYMP (3) COPD (chronic obstructive pulmonary disease) Assessment/Plan: i vsteroids daliresp symbicrot and spririva Code(s): J44.9 - CHRONIC OBSTRUCTIVE PULMONARY DISEASE, UNSPECIFIED Qualifiers : COPD type: chronic bronchitis (4) Constipation due to opioid therapy Assessment/Plan: movantik Code(s): K59.09 - OTHER CONSTIPATION T40.2X5A - ADVERSE EFFECT OF OTHER OPIOIDS, INITIAL ENCOUNTER (5) Diabetes mellitus Assessment/Plan: check hga1c has been on steroids on last admission and this admission tighter glyemic control while inpatient will increase insulin dose bc of steroiods Code(s): E11.9 - TYPE 2 DIABETES MELLITUS WITHOUT COMPLICATIONS Qualifiers: Diabetes mellitus type: type 2 Diabetes mellitus complication status: without complication Diabetes mellitus jail insulin use: with terminal operations supervisor use Qualified Code(s): E11.9 - Type 2 diabetes mellitus without complications (6) Hyperlipidemia LDL goal < 100 Assessment/Plan: lopid Code(s): E78.5 - HYPERLIPIDEMIA, UNSPECIFIED (7) Chronic back pain greater than 3 months duration Assessment/Plan: fentanyl patch Code(s): M54.9 - DORSALGIA, UNSPECIFIED G89.29 - OTHER CHRONIC PAIN
--- NOTE | 2016-11-23 13:34 | PN ---
Progress Note (short form) - Note Progress Note: PULMONARY CONSULTATION DICTATED 11/23/16 IMP DECOMPENSATED COPD CHRONIC HYPOXEMIC RESPIRATORY FAILURE CHF HTN CKD ANEMIA DM PLAN IV STEROIDS INHALED BRONCHODILATORS BIPAP AT NIGHT AND PRN O2 ANTIBIOTICS LASIX GLYCEMIC CONTROL MONITOR ZEINA ABG ON RA DR CEVALLOS Problem List - Problems (1) Cough Code(s): R05 - COUGH (2) Diabetes mellitus, insulin dependent (IDDM), uncontrolled Code(s): E10.65 - TYPE 1 DIABETES MELLITUS WITH HYPERGLYCEMIA Qualifiers: Diabetes mellitus complication status: without complication Qualified Code(s): E10.9 - Type 1 diabetes mellitus without complications (3) HTN (hypertension) Code(s): I10 - ESSENTIAL (PRIMARY) HYPERTENSION Qualifiers: Hypertension type: essential hypertension Qualified Code(s): I10 - Essential (primary) hypertension (4) Hyperlipidemia LDL goal < 100 Code(s): E78.5 - HYPERLIPIDEMIA, UNSPECIFIED (5) Shortness of breath Code(s): R06.02 - SHORTNESS OF BREATH (6) Wheeze Code(s): R06.2 - WHEEZING (7) Anemia Code(s): D64.9 - ANEMIA, UNSPECIFIED Qualifiers: Anemia type: unspecified type Qualified Code(s): D64.9 - Anemia, unspecified (8) Anemia in chronic kidney disease Code(s): N18.9 - CHRONIC KIDNEY DISEASE, UNSPECIFIED D63.1 - ANEMIA IN CHRONIC KIDNEY DISEASE (9) CHF (congestive heart failure) Code(s): I50.9 - HEART FAILURE, UNSPECIFIED Qualifiers: Congestive heart failure type: diastolic (10) COPD (chronic obstructive pulmonary disease) Code(s): J44.9 - CHRONIC OBSTRUCTIVE PULMONARY DISEASE, UNSPECIFIED Qualifiers : COPD type: chronic bronchitis (11) Chronic respiratory failure with hypoxia Code(s): J96.11 - CHRONIC RESPIRATORY FAILURE WITH HYPOXIA
[2016-11-23 14:23] LABS: ALLENS TEST POSITIVE; ART PUNCT SITE LEFT RADIAL; ARTERIAL BLD GAS O2 SATURATION 93.7 % (90-98.9); ARTERIAL BLOOD GAS BASE EXCESS 1.5 meq/l (-2-2); ARTERIAL BLOOD GAS HCO3 26.4 meq/L (22-26); ARTERIAL BLOOD GAS PO2 70.5 mmHg (70-100); LPM/O2% 21; PT. ON O2? NO
[2016-11-23 14:24] LABS: TYPE OF O2 RA
[2016-11-23 14:25] LABS: ARTERIAL BLOOD GAS pH 7.38 (7.35-7.45)
--- NOTE | 2016-11-23 16:19 | CONS ---
DATE OF CONSULTATION: 11/23/2016 PULMONARY CONSULTATION REFERRING PHYSICIAN: Misti Crenshaw M.D. HISTORY OF PRESENT ILLNESS: The patient is a 71-year-old black male known to me from previous hospitalizations and office followup with past history of advanced COPD, diabetes mellitus, congestive heart failure, hyperlipidemia, history of tobacco use, recently quit, admitted to [facility] with chest congestion and shortness of breath. Patient was seen in my office yesterday, at the time he was evaluated and had increasing shortness of breath, cough, and chest congestion. On physical examination yesterday, he was noted to have marked shortness of breath, congestion, and cough productive of yellowish sputum. Denied any fever, chills, nausea, vomiting, diaphoresis. Denies any chest pain, or palpitations. He states he has had these symptoms in the past 3-4 weeks in spite the use of medications, inhalers, bronchodilators, steroids, his symptoms persisted, at which time he was advised to go to the emergency room. In the emergency room, he still had acute exacerbation of COPD, he was started on inhaled bronchodilators, as well as Lasix, and steroids with improvement. He denies any fevers, chills, stated before no hemoptysis. He also has a history of tobacco use, quit not too long ago. There was no history of occupational exposure to chemicals or fumes. There is no history of recent travel. PAST MEDICAL HISTORY: Again, includes advanced COPD, hypertensive cardiovascular disease, hypertension, hypoxemia, respiratory failure on home O2, hypercholesterolemia, diastolic dysfunction. REVIEW OF SYSTEMS: Positive orthopnea. Positive dyspnea. Positive cough. Positive chest congestion. No fever. No chills. No hemoptysis. No chest pain. No palpitations. No abdominal pain. No lower extremity edema. CURRENT MEDICATIONS: Include Duragesic patch, Symbicort, Solu-Medrol, Flonase, Hytrin, lactulose, Cozaar, heparin, Zyloprim, Spiriva, DuoNeb, Cardizem, Colace, senna, Lopid, ballista, Lasix, Duragesic, metoclopramide, Daliresp. PHYSICAL EXAMINATION: General: The patient is a well-developed, well-nourished male, awake, alert, in no acute distress. Vital signs: He is currently afebrile. Blood pressure is 122/63, respiratory rate 18, heart rate is 96. HEENT: Head is normocephalic, atraumatic. Neck: Supple. Heart: Regular. Normal S1, S2. Chest: Bilateral rhonchi throughout. Abdomen: Soft. Bowel sounds positive. Extremities: No cyanosis, edema. LABORATORY: WBC is 11.5, hemoglobin 9.1, hematocrit 28, platelet count of 198,000 and 93 polycytes, 5 lymphocytes, 1 monocytes. INR is 0.96. BUN is 56, creatinine 2.0. Chest x-ray, no acute infiltrates and/or effusion. IMPRESSION: 1. Advanced chronic obstructive pulmonary disease with [id number] hypoxemia, respiratory failure. 2. Hypertensive cardiovascular disease. 3. History of smoking. 4. Hypertension. 5. Anemia. 6. Hypercholesterolemia. 7. Chronic kidney disease. PLAN: IV steroids. Inhaled bronchodilators. Supplemental O2. Lasix. Daily weights. BiPAP. Nancy [id number]
--- NOTE | 2016-11-23 16:35 | CONSULT ---
Consult Consult Specialty:: Nephrology Reason for Consultation:: CKD - History of Present Illness Chief Complaint: shortness of breath History of Present Illness: Pt is a 71 year old male with pmhx of CKD, HTN, COPD, DM, CHF and hyperlipidemia who was sent to the hospital for shortness of breath. He denies chest pain or palpitations. He was found to have elevated creatinine and I was called to evaluate him. He denies dysuria or hematuria. He feels that his shortness of breath is improved with bipap. He has CKD and follows with Dr Nelson. 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 Cardio/Vascular: Yes: CHF, HTN, Hyperlipdemia Pulmonary: Yes: COPD, O2 Dependent Gastrointestinal: Yes: GERD Renal/: Yes: Renal Inusuff, BPH, Cancer, Hematuria, UTI, Other (CKD) Psych: Yes: Anxiety Musculoskeletal: Yes: Chronic low back pain, Osteoarthritis Endocrine: Yes: Diabetes Mellitus - Past Surgical History Past Surgical History: Yes: Colonoscopy (Done last December) negative for significant pathology) - Alcohol/Substance Use Hx Alcohol Use: No - Smoking History Smoking history: Former smoker Have you smoked in the past 12 months: Yes Aproximately how many cigarettes per day: 2 If you are a former smoker, when did you quit?: 2012 - Social History Usual Living Arrangement: Alone Home Medications - Allergies Allergies/Adverse Reactions: Allergies Allergy/AdvReac Type Severity Reaction Status Date / Time No Known Drug Allergies Allergy Verified 11/22/16 15:42 HOT PEPPER Allergy SNEEZING Uncoded 11/22/16 15:42 - Home Medications Home Medications: Ambulatory Orders Aspirin [ASA -] 81 mg PO Q2D@1000 #30 tab.chew 12/27/14 Gemfibrozil [Lopid -] 600 mg PO BID #180 tablet 12/27/14 Terazosin HCl [Hytrin -] 5 mg PO HS #30 capsule 12/27/14 Cyanocobalamin [Vitamin B12 -] 1 g PO DAILY 12/19/15 Lactulose 10 gm PO DAILY 12/20/15 Iron 325 mg PO BID 02/22/16 Tamsulosin HCl [Flomax -] 0.4 mg PO BID 02/22/16 FENTANYL 75mcg PATCH [DURAGESIC 75mcg PATCH -] 1 patch TD Q72H 02/23/16 Albuterol Sulfate Inhaler - [Ventolin HFA Inhaler -] 1 - 2 inh PO Q4H #1 inhaler 03/11/16 Docusate Sodium [Colace -] 100 mg PO BID #60 capsule 03/11/16 Diltiazem Cd [Cardizem Cd -] 120 mg PO DAILY 05/05/16 Naloxegol Oxalate [Movantik] 25 mg PO DAILY PRN 05/05/16 Sitagliptin Phosphate [Januvia] 25 mg PO DAILY 05/05/16 Metoclopramide HCl [Reglan -] 5 mg PO TIDAC tablet 05/09/16 Sennosides [Senna -] 2 tab PO HS PRN #0 tablet 05/09/16 Allopurinol [Zyloprim -] 100 mg PO DAILY 09/28/16 Ranitidine HCl 300 mg PO DAILY 09/28/16 Sennosides [Senokot] 8.6 mg PO DAILY 09/28/16 Acetaminophen [Tylenol .Regular Strength -] 650 mg PO Q6H PRN #0 tablet Budesonide/Formeterol Fumarate [SYMBICORT 160/4.5mcg -] 2 puff IH BID #1 inhaler 10/07/16 Buspirone HCl [Buspar -] 10 mg PO BID #60 tablet 10/07/16 Insulin Aspart Prot/Insuln Asp [Novolog Mix 70-30 Flexpen Syrn] 32 unit SQ BID # 1 box 10/07/16 Losartan Potassium [Cozaar -] 25 mg PO DAILY #30 tablet 10/07/16 Roflumilast [Daliresp -] 500 mcg PO DAILY #30 tablet 10/07/16 Sodium Chloride Nasal [place] [[place] Nasal [place] -] 2 spray NS BID PRN #1 bottle 10/07/16 Furosemide [Lasix -] 80 mg PO DAILY #60 tablet 10/19/16 Ipratropium 0.02% Nebulizer [Atrovent 0.02% Nebulizer -] 1 amp NEB QID #120 amp 10/26/16 Metolazone [Zaroxolyn -] 2.5 mg PO DAILY #14 tablet 10/26/16 Oxycodone HCl [Roxicodone] 15 mg PO Q4HWA PRN 11/22/16 Family Disease History - Family Disease History Family Disease History: Diabetes: Brother, Heart Disease: Brother Review of Systems - Review of Systems Constitutional: reports: Malaise Eyes: reports: No Symptoms HENT: reports: No Symptoms Cardiovascular: reports: Edema, Shortness of Breath Respiratory: reports: Cough, SOB, SOB on Exertion, Wheezing Gastrointestinal: reports: No Symptoms Genitourinary: reports: No Symptoms Musculoskeletal: reports: No Symptoms Integumentary: reports: No Symptoms Neurological: reports: No Symptoms Endocrine: reports: No Symptoms Hematology/Lymphatic: reports: No Symptoms Physical Exam Vital Signs: Vital Signs Temperature 98.2 F 11/23/16 14:29 Pulse Rate 82 11/23/16 14:29 Respiratory Rate 16 11/23/16 14:29 Blood Pressure 120/70 11/23/16 14:29 O2 Sat by Pulse Oximetry (%) 91 L 11/23/16 09:00 Constitutional: Yes: Calm HENT: Yes: Atraumatic Cardiovascular: Yes: S1, S2 Respiratory: Yes: On BiPap, Wheezes Gastrointestinal: Yes: Soft, Abdomen, Obese Renal/: Yes: WNL Musculoskeletal: Yes: WNL Edema: Yes Edema: LLE: 1+, RLE: 1+ Neurological: Yes: Oriented Psychiatric: Yes: Oriented Labs: CBC, BMP 11/23/16 06:30 11/23/16 06:30 Laboratory Tests 10/16/16 10/17/16 10/18/16 07:05 07:45 06:30 Creatinine 1.9 H 1.9 H 1.7 H 10/21/16 10/22/16 10/24/16 07:20 09:00 06:20 Creatinine 1.5 H 1.4 H 1.6 H 11/22/16 11/23/16 17:00 06:30 Creatinine 1.9 H 2.0 H Imaging - Results Chest X-ray: Report Reviewed Problem List - Problems (1) Cough Code(s): R05 - COUGH (2) Diabetes mellitus, insulin dependent (IDDM), uncontrolled Code(s): E10.65 - TYPE 1 DIABETES MELLITUS WITH HYPERGLYCEMIA Qualifiers: Diabetes mellitus complication status: without complication Qualified Code(s): E10.9 - Type 1 diabetes mellitus without complications (3) HTN (hypertension) Code(s): I10 - ESSENTIAL (PRIMARY) HYPERTENSION Qualifiers: Hypertension type: essential hypertension Qualified Code(s): I10 - Essential (primary) hypertension (4) Shortness of breath Code(s): R06.02 - SHORTNESS OF BREATH (5) CHF (congestive heart failure) Code(s): I50.9 - HEART FAILURE, UNSPECIFIED Qualifiers: Congestive heart failure type: diastolic (6) CKD (chronic kidney disease) Code(s): N18.9 - CHRONIC KIDNEY DISEASE, UNSPECIFIED Qualifiers: Chronic kidney disease stage: unspecified stage Qualified Code(s): N18.9 - Chronic kidney disease, unspecified Assessment/Plan Current Medications Generic Name Dose Route Start Last Admin Trade Name Freq PRN Reason Stop Dose Admin Acetaminophen 650 mg 11/22/16 18:22 Tylenol - PO Q6H PRN FEVER OR PAIN Aclidinium [place] 1 puff 11/23/16 22:00 Tudorza - IH BID JOSE LUIS Albuterol Sulfate 1 amp 11/23/16 13:35 Ventolin 0.083% Nebulizer Soln - NEB Q4H PRN SHORT OF BREATH/WHEEZING Allopurinol 100 mg 11/23/16 10:00 11/23/16 10:40 Zyloprim - PO 100 mg DAILY JOSE LUIS Administration Aspirin 81 mg 11/24/16 10:00 Asa - PO Q2D@1000 JOSE LUIS Budesonide/Formoterol Fumarate 2 puff 11/22/16 22:00 11/23/16 10:55 Symbicort 160/4.5mcg - IH 2 puff BID JOSE LUIS Administration Diltiazem HCl 120 mg 11/23/16 10:00 11/23/16 10:39 Cardizem Cd - PO 120 mg DAILY JOSE LUIS Administration Docusate Sodium 100 mg 11/22/16 22:00 11/23/16 10:39 Colace - PO 100 mg BID JOSE LUIS Administration Fentanyl 1 patch 11/22/16 18:30 11/22/16 22:05 Duragesic 75mcg Patch - TD 1 patch Q72H JOSE LUIS Administration Ferrous Sulfate 325 mg 11/22/16 22:00 11/23/16 10:39 Feosol - PO 325 mg BID JOSE LUIS Administration Furosemide 40 mg 11/23/16 06:00 11/23/16 14:50 Lasix Injection - IVPUSH 40 mg BID@0600,1400 JOSE LUIS Administration Gemfibrozil 600 mg 11/23/16 07:00 11/23/16 06:57 Lopid - PO 600 mg BIDAC JOSE LUIS Administration Heparin Sodium (Porcine) 5,000 unit 11/22/16 22:00 11/23/16 10:42 Heparin - SQ 5,000 unit BID JOSE LUIS Administration Hydromorphone HCl 2 mg 11/23/16 10:00 11/23/16 10:40 Dilaudid Injection - IVPB 2 mg BID JOSE LUIS Administration Insulin Aspart 1 vial 11/22/16 22:00 11/23/16 10:55 Novolog Vial Sliding Scale - SQ 7 units ACHS JOSE LUIS Administration Protocol Insulin Aspart 38 units 11/23/16 16:30 Novolog Mix 70/30 Vial SQ BIDAC JOSE LUIS Lactulose 10 gm 11/23/16 10:00 11/23/16 10:41 Cephulac (Oral Use) PO 10 gm DAILY JOSE LUIS Administration Losartan Potassium 25 mg 11/23/16 10:00 11/23/16 10:40 Cozaar - PO 25 mg DAILY JOSE LUIS Administration Methylnaltrexone [place] 12 mg 11/24/16 10:00 Relistor - SQ DAILY JOSE LUIS Methylprednisolone Sodium Succinate 40 mg 11/22/16 21:00 11/23/16 14:50 Solu-Medrol - IVPB 40 mg Q6H-IV JOSE LUIS Administration Metoclopramide HCl 5 mg 11/23/16 07:00 11/23/16 10:39 Reglan - PO 5 mg TIDAC JOSE LUIS Administration Miscellaneous 1 each 11/22/16 18:58 Duragesic Patch Waste TD PRN PRN Ranitidine HCl 300 mg 11/23/16 10:00 11/23/16 10:39 Zantac - PO 300 mg DAILY JOSE LUIS Administration Roflumilast 500 mcg 11/23/16 10:00 11/23/16 10:41 Daliresp - PO Not Given DAILY JOSE LUIS Senna 2 tab 11/22/16 18:22 11/22/16 22:03 Senna - PO 2 tab HS PRN Administration CONSTIPATION Sitagliptin Phosphate 25 mg 11/23/16 07:00 11/23/16 06:56 Januvia - PO 25 mg DAILY@0700 JOSE LUIS Administration Sodium Chloride 2 spray 11/22/16 18:22 11/23/16 10:40 [place] Nasal [place] - NS 2 spray BID PRN Administration NASAL CONGESTION Tamsulosin HCl 0.4 mg 11/22/16 22:00 11/23/16 10:39 Flomax - PO 0.4 mg BID JOSE LUIS Administration Terazosin HCl 5 mg 11/22/16 22:00 11/22/16 22:01 Hytrin - PO 5 mg HS JOSE LUIS Administration Impression 1. CKD 2. DM 3. HTN 4. CHF 5. COPD 6. fluid overload 7. BPH 8. insomnia 9. narcotic dependence Plan - cont with lasix, will possibly switch to PO tomorrow - creatinine is above baseline - cont steroids with taper - cont bipap as needed - can keep on cozaar for now - will follow Dr Nathan
[2016-11-23] MEDS: ALBUTEROL SO4 0.083% IH SOL 2.5 MG/3 ML VIAL.NEB. NEB PRN (17:28)
[2016-11-23] MEDS: INSULIN (NOVOLOG MIX 70/30) 100 UNITS/ML MDV SQ SCH (18:01)
[2016-11-23] MEDS ORDERED: INSULIN (NOVOLOG MIX 70/30) 100 UNITS/ML MDV SQ ONE (19:17)
[2016-11-23] MEDS ORDERED: INSULIN DETEMIR 100 UNITS/ML MDV SQ ONE (19:17)
[2016-11-23] MEDS ORDERED: INSULIN (NOVOLOG) ASPART 100 UNITS/ML 10ML VIAL ONE (19:17)
--- NOTE | 2016-11-23 20:49 | CONSULT ---
Consult Consult Specialty:: endocrine Referred by:: dr.[email or web address] rios Reason for Consultation:: iddm uncontrolled - History of Present Illness Chief Complaint: diabetic pain History of Present Illness: 71 year old male with a significant PMH of COPD, on home Oxygen , DM, CHF, HLD referred to ED from Dr. Lawton office. He is been complaining of SOB and cough since the last admission month ago. The pt is also complaining of chest pain associated with coughing. He states that he doesn't produces any sputum. 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 Cardio/Vascular: Yes: CHF, HTN, Hyperlipdemia Pulmonary: Yes: COPD, O2 Dependent Gastrointestinal: Yes: GERD Renal/: Yes: Renal Inusuff, BPH, Cancer, Hematuria, UTI, Other (CKD) Psych: Yes: Anxiety Musculoskeletal: Yes: Chronic low back pain, Osteoarthritis Endocrine: Yes: Diabetes Mellitus - Past Surgical History Past Surgical History: Yes: Colonoscopy (Done last December) negative for significant pathology) - Alcohol/Substance Use Hx Alcohol Use: No - Smoking History Smoking history: Former smoker Have you smoked in the past 12 months: Yes Aproximately how many cigarettes per day: 2 If you are a former smoker, when did you quit?: 2012 - Social History Usual Living Arrangement: Alone Home Medications - Allergies Allergies/Adverse Reactions: Allergies Allergy/AdvReac Type Severity Reaction Status Date / Time No Known Drug Allergies Allergy Verified 11/22/16 15:42 HOT PEPPER Allergy SNEEZING Uncoded 11/22/16 15:42 - Home Medications Home Medications: Ambulatory Orders Aspirin [ASA -] 81 mg PO Q2D@1000 #30 tab.chew 12/27/14 Gemfibrozil [Lopid -] 600 mg PO BID #180 tablet 12/27/14 Terazosin HCl [Hytrin -] 5 mg PO HS #30 capsule 12/27/14 Cyanocobalamin [Vitamin B12 -] 1 g PO DAILY 12/19/15 Lactulose 10 gm PO DAILY 12/20/15 Iron 325 mg PO BID 02/22/16 Tamsulosin HCl [Flomax -] 0.4 mg PO BID 02/22/16 FENTANYL 75mcg PATCH [DURAGESIC 75mcg PATCH -] 1 patch TD Q72H 02/23/16 Albuterol Sulfate Inhaler - [Ventolin HFA Inhaler -] 1 - 2 inh PO Q4H #1 inhaler 03/11/16 Docusate Sodium [Colace -] 100 mg PO BID #60 capsule 03/11/16 Diltiazem Cd [Cardizem Cd -] 120 mg PO DAILY 05/05/16 Naloxegol Oxalate [Movantik] 25 mg PO DAILY PRN 05/05/16 Sitagliptin Phosphate [Januvia] 25 mg PO DAILY 05/05/16 Metoclopramide HCl [Reglan -] 5 mg PO TIDAC tablet 05/09/16 Sennosides [Senna -] 2 tab PO HS PRN #0 tablet 05/09/16 Allopurinol [Zyloprim -] 100 mg PO DAILY 09/28/16 Ranitidine HCl 300 mg PO DAILY 09/28/16 Sennosides [Senokot] 8.6 mg PO DAILY 09/28/16 Acetaminophen [Tylenol .Regular Strength -] 650 mg PO Q6H PRN #0 tablet Budesonide/Formeterol Fumarate [SYMBICORT 160/4.5mcg -] 2 puff IH BID #1 inhaler 10/07/16 Buspirone HCl [Buspar -] 10 mg PO BID #60 tablet 10/07/16 Insulin Aspart Prot/Insuln Asp [Novolog Mix 70-30 Flexpen Syrn] 32 unit SQ BID # 1 box 10/07/16 Losartan Potassium [Cozaar -] 25 mg PO DAILY #30 tablet 10/07/16 Roflumilast [Daliresp -] 500 mcg PO DAILY #30 tablet 10/07/16 Sodium Chloride Nasal [place] [[place] Nasal [place] -] 2 spray NS BID PRN #1 bottle 10/07/16 Furosemide [Lasix -] 80 mg PO DAILY #60 tablet 10/19/16 Ipratropium 0.02% Nebulizer [Atrovent 0.02% Nebulizer -] 1 amp NEB QID #120 amp 10/26/16 Metolazone [Zaroxolyn -] 2.5 mg PO DAILY #14 tablet 10/26/16 Oxycodone HCl [Roxicodone] 15 mg PO Q4HWA PRN 11/22/16 Family Disease History - Family Disease History Family Disease History: Diabetes: Brother, Heart Disease: Brother Review of Systems - Review of Systems Constitutional: reports: Weakness Eyes: reports: Blurred Vision HENT: reports: No Symptoms Neck: reports: Decreased ROM Cardiovascular: reports: Shortness of Breath Respiratory: reports: Exercise Intolerance, Orthopnea, SOB, SOB on Exertion Gastrointestinal: reports: Constipation Genitourinary: reports: No Symptoms Breasts: reports: No Symptoms Reported Musculoskeletal: reports: Extremity Pain, Joint Swelling, Muscle Pain, Muscle Cramps, Muscle Weakness Integumentary: reports: No Symptoms Neurological: reports: Dizziness, Unsteady Gait, Weakness Endocrine: reports: Unexplained Weight Gain Psychiatric: reports: Anxiety Physical Exam Vital Signs: Vital Signs Temperature 96.7 F L 11/23/16 16:35 Pulse Rate 86 11/23/16 16:35 Respiratory Rate 20 11/23/16 16:35 Blood Pressure 155/88 11/23/16 16:35 O2 Sat by Pulse Oximetry (%) 91 L 11/23/16 09:00 Constitutional: Yes: Anxious Eyes: Yes: EOM Intact HENT: Yes: Normocephalic Neck: Yes: Trachea Midline Cardiovascular: Yes: Tachycardia Respiratory: Yes: On BiPap, SOB, SOB on Exertion Gastrointestinal: Yes: Soft, Abdomen, Obese ...Rectal Exam: Yes: Deferred Renal/: Yes: WNL Breast(s): Yes: WNL Musculoskeletal: Yes: Joint Swelling, Muscle Pain, Muscle Weakness Edema: Yes Neurological: Yes: Alert, Numbness Labs: CBC, BMP 11/23/16 06:30 11/23/16 06:30 Problem List - Problems (1) Diabetes mellitus, insulin dependent (IDDM), uncontrolled Code(s): E10.65 - TYPE 1 DIABETES MELLITUS WITH HYPERGLYCEMIA Qualifiers: Diabetes mellitus complication status: without complication Qualified Code(s): E10.9 - Type 1 diabetes mellitus without complications (2) HTN (hypertension) Code(s): I10 - ESSENTIAL (PRIMARY) HYPERTENSION Qualifiers: Hypertension type: essential hypertension Qualified Code(s): I10 - Essential (primary) hypertension (3) Hyperlipidemia LDL goal < 100 Code(s): E78.5 - HYPERLIPIDEMIA, UNSPECIFIED Assessment/Plan Current Active Problems [place] (Acute) Cough (Acute) Diabetes mellitus, insulin dependent (IDDM), uncontrolled (Acute) HTN (hypertension) (Acute) Hyperlipidemia LDL goal < 100 (Acute) Hypertriglyceridemia (Acute) Shortness of breath (Acute) Tachycardia (Acute) Wheeze (Acute) iddm ckd/chf morbid obesity Abnormal Lab Results 11/23/16 11/23/16 11/23/16 06:30 06:30 14:05 WBC 11.5 H RBC 3.05 L Hgb 9.1 L Hct 28.0 L RDW 16.7 H Neutrophils % 93.5 H Lymphocytes % 5.3 L D Monocytes % 1.1 L ABG pCO2 at Pt Temp 46.0 H ABG HCO3 26.4 H ABG O2 Content 11.8 L Chloride 96 L BUN 56 H Creatinine 2.0 H Random Glucose 408 H* D AST 10 L D Alkaline Phosphatase 40 L Current Medications Generic Name Dose Route Start Last Admin Trade Name Freq PRN Reason Stop Dose Admin Acetaminophen 650 mg 11/22/16 18:22 Tylenol - PO Q6H PRN FEVER OR PAIN Aclidinium [place] 1 puff 11/23/16 22:00 Tudorza - IH BID JOSE LUIS Albuterol Sulfate 1 amp 11/23/16 13:35 11/23/16 17:28 Ventolin 0.083% Nebulizer Soln - NEB 1 amp Q4H PRN Administration SHORT OF BREATH/WHEEZING Allopurinol 100 mg 11/23/16 10:00 11/23/16 10:40 Zyloprim - PO 100 mg DAILY JOSE LUIS Administration Aspirin 81 mg 11/24/16 10:00 Asa - PO Q2D@1000 JOSE LUIS Budesonide/Formoterol Fumarate 2 puff 11/22/16 22:00 11/23/16 10:55 Symbicort 160/4.5mcg - IH 2 puff BID JOSE LUIS Administration Diltiazem HCl 120 mg 11/23/16 10:00 11/23/16 10:39 Cardizem Cd - PO 120 mg DAILY JOSE LUIS Administration Docusate Sodium 100 mg 11/22/16 22:00 11/23/16 10:39 Colace - PO 100 mg BID JOSE LUIS Administration Fentanyl 1 patch 11/22/16 18:30 11/22/16 22:05 Durages[place] 75mcg Patch - TD 1 patch Q72H JOSE LUIS Administration Ferrous Sulfate 325 mg 11/22/16 22:00 11/23/16 10:39 Feosol - PO 325 mg BID JOSE LUIS Administration Furosemide 40 mg 11/23/16 06:00 11/23/16 14:50 Lasix Injection - IVPUSH 40 mg BID@0600,1400 JOSE LUIS Administration Gemfibrozil 600 mg 11/23/16 07:00 11/23/16 18:01 Lopid - PO 600 mg BIDAC JOSE LUIS Administration Heparin Sodium (Porcine) 5,000 unit 11/22/16 22:00 11/23/16 10:42 Heparin - SQ 5,000 unit BID JOSE LUIS Administration Hydromorphone HCl 2 mg 11/23/16 10:00 11/23/16 10:40 Dilaudid Injection - IVPB 2 mg BID JOSE LUIS Administration Insulin Aspart 1 vial 11/22/16 22:00 11/23/16 18:02 Novolog Vial Sliding Scale - SQ 5 units ACHS JOSE LUIS Administration Protocol Insulin Aspart 38 units 11/23/16 16:30 11/23/16 18:01 Novolog Mix 70/30 Vial SQ 38 units BIDAC JOSE LUIS Administration Lactulose 10 gm 11/23/16 10:00 11/23/16 10:41 Cephulac (Oral Use) PO 10 gm DAILY JOSE LUIS Administration Losartan Potassium 25 mg 11/23/16 10:00 11/23/16 10:40 Cozaar - PO 25 mg DAILY JOSE LUIS Administration Methylnaltrexone [place] 12 mg 11/24/16 10:00 Relistor - SQ DAILY JOSE LUIS Methylprednisolone Sodium Succinate 40 mg 11/22/16 21:00 11/23/16 14:50 Solu-Medrol - IVPB 40 mg Q6H-IV JOSE LUIS Administration Metoclopramide HCl 5 mg 11/23/16 07:00 11/23/16 18:01 Reglan - PO 5 mg TIDAC JOSE LUIS Administration Miscellaneous 1 each 11/22/16 18:58 Duragesic Patch Waste TD PRN PRN Ranitidine HCl 300 mg 11/23/16 10:00 11/23/16 10:39 Zantac - PO 300 mg DAILY JOSE LUIS Administration Roflumilast 500 mcg 11/23/16 10:00 11/23/16 10:41 Daliresp - PO Not Given DAILY JOSE LUIS Senna 2 tab 11/22/16 18:22 11/22/16 22:03 Senna - PO 2 tab HS PRN Administration CONSTIPATION Sitagliptin Phosphate 25 mg 11/23/16 07:00 11/23/16 06:56 Januvia - PO 25 mg DAILY@0700 JOSE LUIS Administration Sodium Chloride 2 spray 11/22/16 18:22 11/23/16 10:40 [place] Nasal [place] - NS 2 spray BID PRN Administration NASAL CONGESTION Tamsulosin HCl 0.4 mg 11/22/16 22:00 11/23/16 10:39 Flomax - PO 0.4 mg -p BID JOSE LUIS Administration Terazosin HCl 5 mg 11/22/16 22:00 11/22/16 22:01 Hytrin - PO 5 mg HS JOSE LUIS Administration plan bgm qid novolg coverage continue novolog 70/30 38 units bid ck hb a1c
[2016-11-23] MEDS: TERAZOSIN HCL 5 MG CAPSULE PO SCH (21:21)
[2016-11-23] MEDS: ACLIDINIUM BROMIDE 400 MCG/INH AERO.POWD IH SCH ×2 (21:23→21:27)
[2016-11-24] MEDS: methylPREDNISolone NA SUCC 40 MG/1 ML VIAL IVPB SCH ×4 (02:26→21:35)
[2016-11-24] MEDS: INSULIN SLIDING SCALE (NOVOLOG) 1 VIAL SQ SCH ×4 (06:06→21:49)
[2016-11-24] MEDS: INSULIN (NOVOLOG MIX 70/30) 100 UNITS/ML MDV SQ SCH ×2 (06:10→18:21)
[2016-11-24] MEDS: GEMFIBROZIL 600 MG TABLET (FP) PO SCH ×2 (06:15→18:21)
[2016-11-24] MEDS: FUROSEMIDE 40 MG/4 ML INJECTABLE VIAL IVPUSH SCH ×2 (06:15→14:46)
[2016-11-24] MEDS: sitaGLIPtin PHOSPHATE 25 MG TABLET (FP) PO SCH (06:15)
[2016-11-24] MEDS: METOCLOPRAMIDE HCL 10 MG TABLET (FP) PO SCH ×3 (06:16→18:20)
[2016-11-24] MEDS: ALBUTEROL SO4 0.083% IH SOL 2.5 MG/3 ML VIAL.NEB. NEB PRN ×3 (06:27→17:19)
[2016-11-24 08:19] LABS: BASOPHIL 0.1 % (0-2.0); MCH 29.6 pg (25.7-33.7); MCHC 32.1 g/dl (32.0-35.9); MEAN CELL VOLUME 92.3 fl (80-96); NEUTROPHILS 90.4 % (42.8-82.8); PLATELET COUNT 199 K/MM3 (134-434); RDW 17.2 % (11.9-15.9); WHITE BLOOD COUNT 15.3 K/mm3 (4.0-10.0)
[2016-11-24 08:48] LABS: ALBUMIN 3.7 g/dl (3.4-5.0); BILIRUBIN,TOTAL 0.3 mg/dL (0.2-1.0); CALCIUM 8.7 mg/dL (8.5-10.1); CREATININE 2.3 mg/dL (0.7-1.3); TOT PROT 6.7 g/dl (6.4-8.2)
[2016-11-24 08:55] LABS: CHOLESTEROL 221 mg/dL (50-200); LDL CHOLESTEROL (ONLY SJRH) 94 mg/dL (5-100)
[2016-11-24] MEDS: LOSARTAN POTASSIUM 25 MG TABLET PO SCH (09:59)
[2016-11-24] MEDS: RANITIDINE HCL 150 MG TABLET (FP) PO SCH (09:59)
[2016-11-24] MEDS: DOCUSATE SODIUM 100 MG CAPSULE (FP) PO SCH ×2 (10:00→21:42)
[2016-11-24] MEDS: ALLOPURINOL 100 MG TABLET (FP) PO SCH (10:00)
[2016-11-24] MEDS: HEPARIN NA (PORCINE) 5,000 UNITS/ML 1ML VIAL SQ SCH ×3 (10:00→23:05)
[2016-11-24] MEDS: FERROUS SO4 325 MG TABLET (FP) PO SCH ×2 (10:00→21:42)
[2016-11-24] MEDS: TAMSULOSIN HCL 0.4 MG CAP.ER.24H (FP) PO SCH ×2 (10:00→21:42)
[2016-11-24] MEDS: HYDROmorphone HCL CARPU-JECT 2 MG/1 ML DISP.SYRIN IVPB SCH ×3 (10:01→22:22)
[2016-11-24] MEDS: LACTULOSE 20 GM/30 ML UDC (FOR ORAL USE ONLY) PO SCH (10:02)
[2016-11-24] MEDS: ROFLUMILAST 500 MCG TABLET PO SCH (10:03)
--- NOTE | 2016-11-24 10:10 | PN ---
Progress Note (short form) - Note Progress Note: RENAL Pt seen and examined feels well Last Vital Signs Temp Pulse Resp BP Pulse Ox 97.8 F 73 22 152/79 96 11/24/16 06:00 11/24/16 06:00 11/24/16 06:00 11/24/16 06:00 11/23/16 21:00 obese lungs rhonchi bilat cvs s1s2 rr abd soft, obese ext +edema, wears stocking neuro a+ox3 Current Medications Generic Name Dose Route Start Last Admin Trade Name Freq PRN Reason Stop Dose Admin Acetaminophen 650 mg 11/22/16 18:22 Tylenol - PO Q6H PRN FEVER OR PAIN Aclidinium [place] 1 puff 11/23/16 22:00 11/23/16 21:27 Tudorza - IH Not Given BID JOSE LUIS Albuterol Sulfate 1 amp 11/23/16 13:35 11/24/16 06:27 Ventolin 0.083% Nebulizer Soln - NEB 1 amp Q4H PRN Administration SHORT OF BREATH/WHEEZING Allopurinol 100 mg 11/23/16 10:00 11/24/16 10:00 Zyloprim - PO 100 mg DAILY JOSE LUIS Administration Aspirin 81 mg 11/24/16 10:00 Asa - PO Q2D@1000 JOSE LUIS Budesonide/Formoterol Fumarate 2 puff 11/22/16 22:00 11/23/16 21:24 Symbicort 160/4.5mcg - IH 2 puff BID JOSE LUIS Administration Diltiazem HCl 120 mg 11/23/16 10:00 11/24/16 10:01 Cardizem Cd - PO 120 mg DAILY JOSE LUIS Administration Docusate Sodium 100 mg 11/22/16 22:00 11/24/16 10:00 Colace - PO 100 mg BID JOSE LUIS Administration Fentanyl 1 patch 11/22/16 18:30 11/22/16 22:05 Dur[place] 75mcg Patch - TD 1 patch Q72H JOSE LUIS Administration Ferrous Sulfate 325 mg 11/22/16 22:00 11/24/16 10:00 Feosol - PO 325 mg BID JOSE LUIS Administration Furosemide 40 mg 11/23/16 06:00 11/24/16 06:15 Lasix Injection - IVPUSH 40 mg BID@0600,1400 JOSE LUIS Administration Gemfibrozil 600 mg 11/23/16 07:00 11/24/16 06:15 Lopid - PO 600 mg BIDAC JOSE LUIS Administration Heparin Sodium (Porcine) 5,000 unit 11/22/16 22:00 11/24/16 10:00 Heparin - SQ 5,000 unit BID JOSE LUIS Administration Hydromorphone HCl 2 mg 11/23/16 10:00 11/24/16 10:01 Dilaudid Injection - IVPB 2 mg BID JOSE LUIS Administration Insulin Aspart 38 units 11/23/16 16:30 11/24/16 06:10 Novolog Mix 70/30 Vial SQ 38 units BIDAC JOSE LUIS Administration Insulin Aspart 1 vial 11/23/16 20:53 11/24/16 06:06 Novolog Vial Sliding Scale - SQ Not Given ACHS [facility] Protocol Lactulose 10 gm 11/23/16 10:00 11/24/16 10:02 Cephulac (Oral Use) PO 10 gm DAILY JOSE LUIS Administration Losartan Potassium 25 mg 11/23/16 10:00 11/24/16 09:59 Cozaar - PO 25 mg DAILY JOSE LUIS Administration Methylnaltrexone [place] 12 mg 11/24/16 10:00 Relistor - SQ DAILY JOSE LUIS Methylprednisolone Sodium Succinate 40 mg 11/22/16 21:00 11/24/16 09:59 Solu-Medrol - IVPB 40 mg Q6H-IV JOSE LUIS Administration Metoclopramide HCl 5 mg 11/23/16 07:00 11/24/16 06:16 Reglan - PO 5 mg TIDAC JOSE LUIS Administration Miscellaneous 1 each 11/22/16 18:58 Duragesic Patch Waste TD PRN PRN Ranitidine HCl 300 mg 11/23/16 10:00 11/24/16 09:59 Zantac - PO 300 mg DAILY JOSE LUIS Administration Roflumilast 500 mcg 11/23/16 10:00 11/24/16 10:03 Daliresp - PO 500 mcg DAILY JOSE LUIS Administration Senna 2 tab 11/22/16 18:22 11/22/16 22:03 Senna - PO 2 tab HS PRN Administration CONSTIPATION Sitagliptin Phosphate 25 mg 11/23/16 07:00 11/24/16 06:15 Januvia - PO 25 mg DAILY@0700 JOSE LUIS Administration Sodium Chloride 2 spray 11/22/16 18:22 11/23/16 10:40 [place] Nasal [place] - NS 2 spray BID PRN Administration NASAL CONGESTION Tamsulosin HCl 0.4 mg 11/22/16 22:00 11/24/16 10:00 Flomax - PO 0.4 mg BID JOSE LUIS Administration Terazosin HCl 5 mg 11/22/16 22:00 11/23/16 21:21 Hytrin - PO 5 mg HS JOSE LUIS Administration CBC, BMP 11/24/16 06:00 11/24/16 06:00 Impression 1. CKD 2. DM 3. HTN 4. CHF 5. COPD 6. fluid overload 7. BPH 8. insomnia 9. 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
[2016-11-24] MEDS: ASPIRIN 81 MG CHEWABLE TABLETS PO SCH (10:56)
[2016-11-24] MEDS: Methylnaltrexone Bromide 12 MG/0.6 ML KIT SQ SCH (10:57)
[2016-11-24] MEDS: BUDESONIDE/FORMETEROL FUMARATE 160/4.5 mcg INHALER IH SCH ×2 (10:57→21:43)
[2016-11-24] MEDS: ACLIDINIUM BROMIDE 400 MCG/INH AERO.POWD IH SCH ×2 (10:58→21:43)
--- NOTE | 2016-11-24 12:08 | PN ---
Progress Note, Physician Chief Complaint: not requesting higher narcotic pain rx - Current Medication List Current Medications: Active Medications Acetaminophen (Tylenol -) 650 mg PO Q6H PRN PRN Reason: FEVER OR PAIN Aclidinium [place] (Tudorza -) 1 puff IH BID [facility] Last Admin: 11/24/16 10:58 Dose: Not Given Albuterol Sulfate (Ventolin 0.083% Nebulizer Soln -) 1 amp NEB Q4H PRN PRN Reason: SHORT OF BREATH/WHEEZING Last Admin: 11/24/16 10:50 Dose: 1 amp Allopurinol (Zyloprim -) 100 mg PO DAILY [facility] Last Admin: 11/24/16 10:00 Dose: 100 mg Aspirin (Asa -) 81 mg PO Q2D@1000 [facility] Last Admin: 11/24/16 10:56 Dose: 81 mg Budesonide/Formoterol Fumarate (Symbicort 160/4.5mcg -) 2 puff IH BID [facility] Last Admin: 11/24/16 10:57 Dose: 2 puff Diltiazem HCl (Cardizem Cd -) 120 mg PO DAILY [facility] Last Admin: 11/24/16 10:01 Dose: 120 mg Docusate Sodium (Colace -) 100 mg PO BID [facility] Last Admin: 11/24/16 10:00 Dose: 100 mg Fentanyl (Duragesic 75mcg Patch -) 1 patch TD Q72H [facility] Last Admin: 11/22/16 22:05 Dose: 1 patch Ferrous Sulfate (Feosol -) 325 mg PO BID [facility] Last Admin: 11/24/16 10:00 Dose: 325 mg Furosemide (Lasix Injection -) 40 mg IVPUSH BID@0600,1400 [facility] Last Admin: 11/24/16 06:15 Dose: 40 mg Gemfibrozil (Lopid -) 600 mg PO BIDAC [facility] Last Admin: 11/24/16 06:15 Dose: 600 mg Heparin Sodium (Porcine) (Heparin -) 5,000 unit SQ BID [facility] Last Admin: 11/24/16 10:00 Dose: 5,000 unit Hydromorphone HCl (Dilaudid Injection -) 2 mg IVPB BID [facility] Last Admin: 11/24/16 10:01 Dose: 2 mg Insulin Aspart (Novolog Mix 70/30 Vial) 38 units SQ BIDAC [facility] Last Admin: 11/24/16 06:10 Dose: 38 units Insulin Aspart (Novolog Vial Sliding Scale -) 1 vial SQ ACHS JOSE LUIS PRN Reason: Protocol Last Admin: 11/24/16 06:06 Dose: Not Given Lactulose (Cephulac (Oral Use)) 10 gm PO DAILY [facility] Last Admin: 11/24/16 10:02 Dose: 10 gm Losartan Potassium (Cozaar -) 25 mg PO DAILY [facility] Last Admin: 11/24/16 09:59 Dose: 25 mg Methylnaltrexone Violet (Relistor -) 12 mg SQ DAILY [facility] Last Admin: 11/24/16 10:57 Dose: 12 mg Methylprednisolone Sodium Succinate (Solu-Medrol -) 40 mg IVPB Q6H-IV [facility] Last Admin: 11/24/16 09:59 Dose: 40 mg Metoclopramide HCl (Reglan -) 5 mg PO TIDAC [facility] Last Admin: 11/24/16 11:04 Dose: 5 mg Miscellaneous (Duragesic Patch Waste) 1 each TD PRN PRN Ranitidine HCl (Zantac -) 300 mg PO DAILY [facility] Last Admin: 11/24/16 09:59 Dose: 300 mg Roflumilast (Daliresp -) 500 mcg PO DAILY [facility] Last Admin: 11/24/16 10:03 Dose: 500 mcg Senna (Senna -) 2 tab PO HS PRN PRN Reason: CONSTIPATION Last Admin: 11/22/16 22:03 Dose: 2 tab Sitagliptin Phosphate (Januvia -) 25 mg PO DAILY@0700 [facility] Last Admin: 11/24/16 06:15 Dose: 25 mg Sodium Chloride ([place] Nasal [place] -) 2 spray NS BID PRN PRN Reason: NASAL CONGESTION Last Admin: 11/23/16 10:40 Dose: 2 spray Tamsulosin HCl (Flomax -) 0.4 mg PO BID [facility] Last Admin: 11/24/16 10:00 Dose: 0.4 mg Terazosin HCl (Hytrin -) 5 mg PO HS [facility] Last Admin: 11/23/16 21:21 Dose: 5 mg - Objective Vital Signs: Vital Signs Temperature 97.8 F 11/24/16 06:00 Pulse Rate 81 11/24/16 10:25 Respiratory Rate 22 11/24/16 06:00 Blood Pressure 152/79 11/24/16 06:00 O2 Sat by Pulse Oximetry (%) 97 11/24/16 11:10 Constitutional: Yes: Calm Cardiovascular: Yes: WNL Respiratory: Yes: Rhonchi Gastrointestinal: Yes: Distention Edema: Yes Labs: CBC, BMP 11/24/16 06:00 11/24/16 06:00 INR, PTT INR 0.96 (0.82-1.09) 11/22/16 17:00 Problem List - Problems (1) Diabetes mellitus, insulin dependent (IDDM), uncontrolled Code(s): E10.65 - TYPE 1 DIABETES MELLITUS WITH HYPERGLYCEMIA Qualifiers: Diabetes mellitus complication status: without complication Qualified Code(s): E10.9 - Type 1 diabetes mellitus without complications (2) HTN (hypertension) Code(s): I10 - ESSENTIAL (PRIMARY) HYPERTENSION Qualifiers: Hypertension type: essential hypertension Qualified Code(s): I10 - Essential (primary) hypertension (3) Shortness of breath Code(s): R06.02 - SHORTNESS OF BREATH (4) CHF (congestive heart failure) Code(s): I50.9 - HEART FAILURE, UNSPECIFIED Qualifiers: Congestive heart failure type: diastolic (5) COPD (chronic obstructive pulmonary disease) Code(s): J44.9 - CHRONIC OBSTRUCTIVE PULMONARY DISEASE, UNSPECIFIED Qualifiers : COPD type: chronic bronchitis Assessment/Plan (1) Acute on chronic diastolic (congestive) heart failure Assessment/Plan: iv lasix continue other cardiac meds will monitor renal fucntion Code(s): I50.33 - ACUTE ON CHRONIC DIASTOLIC (CONGESTIVE) HEART FAILURE (2) BPH (benign prostatic hyperplasia) Assessment/Plan: flomax Code(s): N40.0 - BENIGN PROSTATIC HYPERPLASIA WITHOUT LOWER URINRY TRACT SYMP (3) COPD (chronic obstructive pulmonary disease) Assessment/Plan: ivsteroids daliresp symbicrot and spririva Code(s): J44.9 - CHRONIC OBSTRUCTIVE PULMONARY DISEASE, UNSPECIFIED Qualifiers : COPD type: chronic bronchitis (4) Constipation due to opioid therapy Assessment/Plan: movantik Code(s): K59.09 - OTHER CONSTIPATION T40.2X5A - ADVERSE EFFECT OF OTHER OPIOIDS, INITIAL ENCOUNTER (5) Diabetes mellitus Assessment/Plan: check hga1c -> f/u has been on steroids on last admission and this admission tighter glyemic control while inpatient will increase insulin dose bc of steroiods Code(s): E11.9 - TYPE 2 DIABETES MELLITUS WITHOUT COMPLICATIONS Qualifiers: Diabetes mellitus type: type 2 Diabetes mellitus complication status: without complication 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
--- NOTE | 2016-11-24 14:43 | PN ---
Progress Note, Physician Chief Complaint: Events noted Less SOB and wheezing History of Present Illness: Patient was seen and examined. Awake and alert. Chart was reviewed Denies chest pain or palpitations Less SOB and wheezing and cough - feels better - Current Medication List Current Medications: Active Medications Acetaminophen (Tylenol -) 650 mg PO Q6H PRN PRN Reason: FEVER OR PAIN Aclidinium [place] (Tudorza -) 1 puff IH BID [facility] Last Admin: 11/24/16 10:58 Dose: Not Given Albuterol Sulfate (Ventolin 0.083% Nebulizer Soln -) 1 amp NEB Q4H PRN PRN Reason: SHORT OF BREATH/WHEEZING Last Admin: 11/24/16 10:50 Dose: 1 amp Allopurinol (Zyloprim -) 100 mg PO DAILY [facility] Last Admin: 11/24/16 10:00 Dose: 100 mg Aspirin (Asa -) 81 mg PO Q2D@1000 [facility] Last Admin: 11/24/16 10:56 Dose: 81 mg Budesonide/Formoterol Fumarate (Symbicort 160/4.5mcg -) 2 puff IH BID [facility] Last Admin: 11/24/16 10:57 Dose: 2 puff Diltiazem HCl (Cardizem Cd -) 120 mg PO DAILY [facility] Last Admin: 11/24/16 10:01 Dose: 120 mg Docusate Sodium (Colace -) 100 mg PO BID [facility] Last Admin: 11/24/16 10:00 Dose: 100 mg Fentanyl (Duragesic 75mcg Patch -) 1 patch TD Q72H [facility] Last Admin: 11/22/16 22:05 Dose: 1 patch Ferrous Sulfate (Feosol -) 325 mg PO BID [facility] Last Admin: 11/24/16 10:00 Dose: 325 mg Furosemide (Lasix Injection -) 40 mg IVPUSH BID@0600,1400 [facility] Last Admin: 11/24/16 06:15 Dose: 40 mg Gemfibrozil (Lopid -) 600 mg PO BIDAC [facility] Last Admin: 11/24/16 06:15 Dose: 600 mg Heparin Sodium (Porcine) (Heparin -) 5,000 unit SQ BID [facility] Last Admin: 11/24/16 10:00 Dose: 5,000 unit Hydromorphone HCl (Dilaudid Injection -) 2 mg IVPB BID [facility] Last Admin: 11/24/16 10:01 Dose: 2 mg Insulin Aspart (Novolog Mix 70/30 Vial) 38 units SQ BIDAC [facility] Last Admin: 11/24/16 06:10 Dose: 38 units Insulin Aspart (Novolog Vial Sliding Scale -) 1 vial SQ ACHS JOSE LUIS PRN Reason: Protocol Last Admin: 11/24/16 12:13 Dose: 8 units Lactulose (Cephulac (Oral Use)) 10 gm PO DAILY [facility] Last Admin: 11/24/16 10:02 Dose: 10 gm Losartan Potassium (Cozaar -) 25 mg PO DAILY [facility] Last Admin: 11/24/16 09:59 Dose: 25 mg Methylnaltrexone [place] (Relistor -) 12 mg SQ DAILY [facility] Last Admin: 11/24/16 10:57 Dose: 12 mg Methylprednisolone Sodium Succinate (Solu-Medrol -) 40 mg IVPB Q6H-IV [facility] Last Admin: 11/24/16 09:59 Dose: 40 mg Metoclopramide HCl (Reglan -) 5 mg PO TIDAC [facility] Last Admin: 11/24/16 11:04 Dose: 5 mg Miscellaneous (Duragesic Patch Waste) 1 each TD PRN PRN Ranitidine HCl (Zantac -) 300 mg PO DAILY [facility] Last Admin: 11/24/16 09:59 Dose: 300 mg Roflumilast (Daliresp -) 500 mcg PO DAILY [facility] Last Admin: 11/24/16 10:03 Dose: 500 mcg Senna (Senna -) 2 tab PO HS PRN PRN Reason: CONSTIPATION Last Admin: 11/22/16 22:03 Dose: 2 tab Sitagliptin Phosphate (Januvia -) 25 mg PO DAILY@0700 [facility] Last Admin: 11/24/16 06:15 Dose: 25 mg Sodium Chloride ([employer] [place] Nasal [place] -) 2 spray NS BID PRN PRN Reason: NASAL CONGESTION Last Admin: 11/23/16 10:40 Dose: 2 spray Tamsulosin HCl (Flomax -) 0.4 mg PO BID [facility] Last Admin: 11/24/16 10:00 Dose: 0.4 mg Terazosin HCl (Hytrin -) 5 mg PO HS [facility] Last Admin: 11/23/16 21:21 Dose: 5 mg - Objective Vital Signs: Vital Signs Temperature 98.2 F 11/24/16 10:00 Pulse Rate 81 11/24/16 10:25 Respiratory Rate 18 11/24/16 13:57 Blood Pressure 132/82 11/24/16 10:00 O2 Sat by Pulse Oximetry (%) 97 11/24/16 13:57 Neck: Yes: Supple Cardiovascular: Yes: Regular Rate and Rhythm, S1, S2 Respiratory: Yes: Cough, Diminished Gastrointestinal: Yes: Normal Bowel Sounds, Soft, Abdomen, Obese. No: Tenderness Extremities: Yes: Other (Compression stocking in place) Edema: No Labs: CBC, BMP 11/24/16 06:00 11/24/16 06:00 INR, PTT INR 0.96 (0.82-1.09) 11/22/16 17:00 Problem List - Problems (1) Cough Code(s): R05 - COUGH (2) Diabetes mellitus, insulin dependent (IDDM), uncontrolled Code(s): E10.65 - TYPE 1 DIABETES MELLITUS WITH HYPERGLYCEMIA Qualifiers: Diabetes mellitus complication status: without complication Qualified Code(s): E10.9 - Type 1 diabetes mellitus without complications (3) HTN (hypertension) Code(s): I10 - ESSENTIAL (PRIMARY) HYPERTENSION Qualifiers: Hypertension type: essential hypertension Qualified Code(s): I10 - Essential (primary) hypertension (4) Hyperlipidemia LDL goal < 100 Code(s): E78.5 - HYPERLIPIDEMIA, UNSPECIFIED (5) Shortness of breath Code(s): R06.02 - SHORTNESS OF BREATH (6) Acute on chronic diastolic (congestive) heart failure Code(s): I50.33 - ACUTE ON CHRONIC DIASTOLIC (CONGESTIVE) HEART FAILURE (7) Acute on chronic respiratory failure with hypoxia and hypercapnia Code(s): J96.21 - ACUTE AND CHRONIC RESPIRATORY FAILURE WITH HYPOXIA J96.22 - ACUTE AND CHRONIC RESPIRATORY FAILURE WITH HYPERCAPNIA (8) [id number] kidney injury Code(s): N17.9 - ACUTE KIDNEY FAILURE, UNSPECIFIED N18.9 - CHRONIC KIDNEY DISEASE, UNSPECIFIED (9) Anemia Code(s): D64.9 - ANEMIA, UNSPECIFIED Qualifiers: Anemia type: unspecified type Qualified Code(s): D64.9 - Anemia, unspecified (10) COPD (chronic obstructive pulmonary disease) Code(s): J44.9 - CHRONIC OBSTRUCTIVE PULMONARY DISEASE, UNSPECIFIED Qualifiers : COPD type: chronic bronchitis (11) Pneumonia Code(s): J18.9 - PNEUMONIA, UNSPECIFIED ORGANISM Qualifiers: Pneumonia type: due to unspecified organism Laterality: right Lung location: lower lobe of lung Qualified Code(s): J18.9 - Pneumonia, unspecified organism Assessment/Plan 1. Acute on chronic LV diastolic heart failure 2. COPD with chronic hypoxic respiratory failure 3. Insulin-dependent type 2 diabetes mellitus not at optimal goal control Hgba1c 8.4% 4. Hypercholesterolemia 5. Anemia 6. CKD 7. HTN PLAN: 1. Lasix IV with monitoring diuretic response, renal function and electrolytes 2. Continue ASA 81 mg QD, Lopid 600 mg BID, Cardizem CD 120 mg QD, Cozaar 25 mg QD and Hytrin 5 mg QHS 3. Bronchodilator, O2 to keep SpO2 >90%, IV steroid, Daliresp and compression therapy 4. DVT and GI prophylaxix 5. Eventually pulmonary rehab Further plans are to follow Nicholas Silver MD
--- NOTE | 2016-11-24 15:42 | PN ---
Progress Note, Physician History of Present Illness: pulmonary feeling better less congested,+cough - Current Medication List Current Medications: Active Medications Acetaminophen (Tylenol -) 650 mg PO Q6H PRN PRN Reason: FEVER OR PAIN Aclidinium [place] (Tudorza -) 1 puff IH BID [facility] Last Admin: 11/24/16 10:58 Dose: Not Given Albuterol Sulfate (Ventolin 0.083% Nebulizer Soln -) 1 amp NEB Q4H PRN PRN Reason: SHORT OF BREATH/WHEEZING Last Admin: 11/24/16 10:50 Dose: 1 amp Allopurinol (Zyloprim -) 100 mg PO DAILY [facility] Last Admin: 11/24/16 10:00 Dose: 100 mg Aspirin (Asa -) 81 mg PO Q2D@1000 [facility] Last Admin: 11/24/16 10:56 Dose: 81 mg Budesonide/Formoterol Fumarate (Symbicort 160/4.5mcg -) 2 puff IH BID [facility] Last Admin: 11/24/16 10:57 Dose: 2 puff Diltiazem HCl (Cardizem Cd -) 120 mg PO DAILY [facility] Last Admin: 11/24/16 10:01 Dose: 120 mg Docusate Sodium (Colace -) 100 mg PO BID [facility] Last Admin: 11/24/16 10:00 Dose: 100 mg Fentanyl (Duragesic 75mcg Patch -) 1 patch TD Q72H [facility] Last Admin: 11/22/16 22:05 Dose: 1 patch Ferrous Sulfate (Feosol -) 325 mg PO BID [facility] Last Admin: 11/24/16 10:00 Dose: 325 mg Furosemide (Lasix Injection -) 40 mg IVPUSH BID@0600,1400 [facility] Last Admin: 11/24/16 14:46 Dose: 40 mg Gemfibrozil (Lopid -) 600 mg PO BIDAC [facility] Last Admin: 11/24/16 06:15 Dose: 600 mg Heparin Sodium (Porcine) (Heparin -) 5,000 unit SQ BID [facility] Last Admin: 11/24/16 10:00 Dose: 5,000 unit Hydromorphone HCl (Dilaudid Injection -) 2 mg IVPB BID [facility] Last Admin: 11/24/16 10:01 Dose: 2 mg Insulin Aspart (Novolog Mix 70/30 Vial) 38 units SQ BIDAC [facility] Last Admin: 11/24/16 06:10 Dose: 38 units Insulin Aspart (Novolog Vial Sliding Scale -) 1 vial SQ ACHS JOSE LUIS PRN Reason: Protocol Last Admin: 11/24/16 12:13 Dose: 8 units Lactulose (Cephulac (Oral Use)) 10 gm PO DAILY [facility] Last Admin: 11/24/16 10:02 Dose: 10 gm Losartan Potassium (Cozaar -) 25 mg PO DAILY [facility] Last Admin: 11/24/16 09:59 Dose: 25 mg Methylnaltrexone [place] (Relistor -) 12 mg SQ DAILY [facility] Last Admin: 11/24/16 10:57 Dose: 12 mg Methylprednisolone Sodium Succinate (Solu-Medrol -) 40 mg IVPB Q6H-IV [facility] Last Admin: 11/24/16 14:46 Dose: 40 mg Metoclopramide HCl (Reglan -) 5 mg PO TIDAC [facility] Last Admin: 11/24/16 11:04 Dose: 5 mg Miscellaneous (Duragesic Patch Waste) 1 each TD PRN PRN Ranitidine HCl (Zantac -) 300 mg PO DAILY [facility] Last Admin: 11/24/16 09:59 Dose: 300 mg Roflumilast (Daliresp -) 500 mcg PO DAILY [facility] Last Admin: 11/24/16 10:03 Dose: 500 mcg Senna (Senna -) 2 tab PO HS PRN PRN Reason: CONSTIPATION Last Admin: 11/22/16 22:03 Dose: 2 tab Sitagliptin Phosphate (Januvia -) 25 mg PO DAILY@0700 [facility] Last Admin: 11/24/16 06:15 Dose: 25 mg Sodium Chloride ([place] Nasal [place] -) 2 spray NS BID PRN PRN Reason: NASAL CONGESTION Last Admin: 11/23/16 10:40 Dose: 2 spray Tamsulosin HCl (Flomax -) 0.4 mg PO BID [facility] Last Admin: 11/24/16 10:00 Dose: 0.4 mg Terazosin HCl (Hytrin -) 5 mg PO HS [facility] Last Admin: 11/23/16 21:21 Dose: 5 mg - Objective Vital Signs: Vital Signs Temperature 97.9 F 11/24/16 14:54 Pulse Rate 105 H 11/24/16 14:54 Respiratory Rate 20 11/24/16 14:54 Blood Pressure 139/64 11/24/16 14:54 O2 Sat by Pulse Oximetry (%) 97 11/24/16 13:57 Constitutional: Yes: Well Nourished, Calm, Obese Eyes: Yes: WNL HENT: Yes: WNL Neck: Yes: WNL Cardiovascular: Yes: Regular Rate and Rhythm, S1, S2 Respiratory: Yes: Rhonchi (ann rhonchi) Gastrointestinal: Yes: Normal Bowel Sounds, Soft Extremities: Yes: WNL Edema: Yes Labs: CBC, BMP 11/24/16 06:00 11/24/16 06:00 INR, PTT INR 0.96 (0.82-1.09) 11/22/16 17:00 Problem List - Problems (1) Cough Code(s): R05 - COUGH (2) Diabetes mellitus, insulin dependent (IDDM), uncontrolled Code(s): E10.65 - TYPE 1 DIABETES MELLITUS WITH HYPERGLYCEMIA Qualifiers: Diabetes mellitus complication status: without complication Qualified Code(s): E10.9 - Type 1 diabetes mellitus without complications (3) HTN (hypertension) Code(s): I10 - ESSENTIAL (PRIMARY) HYPERTENSION Qualifiers: Hypertension type: essential hypertension Qualified Code(s): I10 - Essential (primary) hypertension (4) Hyperlipidemia LDL goal < 100 Code(s): E78.5 - HYPERLIPIDEMIA, UNSPECIFIED (5) Shortness of breath Code(s): R06.02 - SHORTNESS OF BREATH (6) Wheeze Code(s): R06.2 - WHEEZING (7) Anemia Code(s): D64.9 - ANEMIA, UNSPECIFIED Qualifiers: Anemia type: unspecified type Qualified Code(s): D64.9 - Anemia, unspecified (8) Anemia in chronic kidney disease Code(s): N18.9 - CHRONIC KIDNEY DISEASE, UNSPECIFIED D63.1 - ANEMIA IN CHRONIC KIDNEY DISEASE (9) CHF (congestive heart failure) Code(s): I50.9 - HEART FAILURE, UNSPECIFIED Qualifiers: Congestive heart failure type: diastolic (10) COPD (chronic obstructive pulmonary disease) Code(s): J44.9 - CHRONIC OBSTRUCTIVE PULMONARY DISEASE, UNSPECIFIED Qualifiers : COPD type: chronic bronchitis (11) Chronic respiratory failure with hypoxia Code(s): J96.11 - CHRONIC RESPIRATORY FAILURE WITH HYPOXIA Assessment/Plan IMP DECOMPENSATED COPD CHRONIC HYPOXEMIC RESPIRATORY FAILURE CHF HTN CKD ANEMIA DM PLAN IV STEROIDS SAME DOSE INHALED BRONCHODILATORS BIPAP AT NIGHT AND PRN O2 ANTIBIOTICS LASIX MONITOR ZEINA CEVALLOS Problem List - Problems (1) Cough Code(s): R05 - COUGH (2) Diabetes mellitus, insulin dependent (IDDM), uncontrolled Code(s): E10.65 - TYPE 1 DIABETES MELLITUS WITH HYPERGLYCEMIA Qualifiers: Diabetes mellitus complication status: without complication Qualified Code(s): E10.9 - Type 1 diabetes mellitus without complications (3) HTN (hypertension) Code(s): I10 - ESSENTIAL (PRIMARY) HYPERTENSION Qualifiers: Hypertension type: essential hypertension Qualified Code(s): I10 - Essential (primary) hypertension (4) Hyperlipidemia LDL goal < 100 Code(s): E78.5 - HYPERLIPIDEMIA, UNSPECIFIED (5) Shortness of breath Code(s): R06.02 - SHORTNESS OF BREATH (6) Wheeze Code(s): R06.2 - WHEEZING (7) Anemia Code(s): D64.9 - ANEMIA, UNSPECIFIED Qualifiers: Anemia type: unspecified type Qualified Code(s): D64.9 - Anemia, unspecified (8) Anemia in chronic kidney disease Code(s): N18.9 - CHRONIC KIDNEY DISEASE, UNSPECIFIED D63.1 - ANEMIA IN CHRONIC KIDNEY DISEASE (9) CHF (congestive heart failure) Code(s): I50.9 - HEART FAILURE, UNSPECIFIED Qualifiers: Congestive heart failure type: diastolic (10) COPD (chronic obstructive pulmonary disease) Code(s): J44.9 - CHRONIC OBSTRUCTIVE PULMONARY DISEASE, UNSPECIFIED Qualifiers : COPD type: chronic bronchitis (11) Chronic respiratory failure with hypoxia Code(s): J96.11 - CHRONIC RESPIRATORY FAILURE WITH HYPOXIA
[2016-11-24] MEDS: TERAZOSIN HCL 5 MG CAPSULE PO SCH (21:43)
[2016-11-24] MEDS ORDERED: HYDROmorphone HCL CARPU-JECT 2 MG/1 ML DISP.SYRIN IVPB SCH (22:00)
[2016-11-25] MEDS: ALBUTEROL SO4 0.083% IH SOL 2.5 MG/3 ML VIAL.NEB. NEB PRN ×3 (00:05→22:09)
[2016-11-25] MEDS: methylPREDNISolone NA SUCC 40 MG/1 ML VIAL IVPB SCH ×4 (02:30→21:00)
[2016-11-25] MEDS: sitaGLIPtin PHOSPHATE 25 MG TABLET (FP) PO SCH (06:27)
[2016-11-25] MEDS: METOCLOPRAMIDE HCL 10 MG TABLET (FP) PO SCH ×3 (06:28→17:39)
[2016-11-25] MEDS: GEMFIBROZIL 600 MG TABLET (FP) PO SCH ×2 (06:28→17:39)
[2016-11-25] MEDS: FUROSEMIDE 40 MG/4 ML INJECTABLE VIAL IVPUSH SCH (06:29)
[2016-11-25] MEDS: HYDROmorphone HCL CARPU-JECT 2 MG/1 ML DISP.SYRIN IVPB SCH ×3 (06:29→22:04)
[2016-11-25] MEDS: INSULIN (NOVOLOG MIX 70/30) 100 UNITS/ML MDV SQ SCH ×2 (06:30→17:41)
[2016-11-25] MEDS: INSULIN SLIDING SCALE (NOVOLOG) 1 VIAL SQ SCH ×4 (06:30→22:06)
[2016-11-25 08:21] LABS: MCH 30.1 pg (25.7-33.7); MCHC 32.9 g/dl (32.0-35.9); MEAN CELL VOLUME 91.7 fl (80-96); MEAN PLT VOLUME 9.2 fl (7.5-11.1); PLATELET COUNT 190 K/MM3 (134-434); RDW 16.7 % (11.9-15.9); WHITE BLOOD COUNT 15.5 K/mm3 (4.0-10.0)
[2016-11-25 09:01] LABS: ALBUMIN 3.6 g/dl (3.4-5.0); CALCIUM 8.8 mg/dL (8.5-10.1)
[2016-11-25 09:05] LABS: BILIRUBIN,TOTAL 0.3 mg/dL (0.2-1.0); CREATININE 2.3 mg/dL (0.7-1.3); TOT PROT 6.8 g/dl (6.4-8.2)
[2016-11-25] MEDS: HEPARIN NA (PORCINE) 5,000 UNITS/ML 1ML VIAL SQ SCH ×2 (09:46→22:00)
[2016-11-25] MEDS: FERROUS SO4 325 MG TABLET (FP) PO SCH ×2 (09:47→22:03)
[2016-11-25] MEDS: ALLOPURINOL 100 MG TABLET (FP) PO SCH (09:47)
[2016-11-25] MEDS: DOCUSATE SODIUM 100 MG CAPSULE (FP) PO SCH ×2 (09:47→22:03)
[2016-11-25] MEDS: TAMSULOSIN HCL 0.4 MG CAP.ER.24H (FP) PO SCH ×2 (09:47→22:03)
[2016-11-25] MEDS: RANITIDINE HCL 150 MG TABLET (FP) PO SCH (09:47)
[2016-11-25] MEDS: LOSARTAN POTASSIUM 25 MG TABLET PO SCH (09:48)
[2016-11-25] MEDS: Methylnaltrexone Bromide 12 MG/0.6 ML KIT SQ SCH (09:49)
[2016-11-25] MEDS: LACTULOSE 20 GM/30 ML UDC (FOR ORAL USE ONLY) PO SCH (09:50)
[2016-11-25] MEDS: ROFLUMILAST 500 MCG TABLET PO SCH (09:50)
[2016-11-25] MEDS: ACLIDINIUM BROMIDE 400 MCG/INH AERO.POWD IH SCH (09:51)
[2016-11-25] MEDS: BUDESONIDE/FORMETEROL FUMARATE 160/4.5 mcg INHALER IH SCH ×2 (09:51→22:05)
--- NOTE | 2016-11-25 10:12 | PN ---
Progress Note, Physician Chief Complaint: Events noted Less SOB and wheezing Not in distress History of Present Illness: Patient was seen and examined. Awake and alert. Chart was reviewed Denies chest pain or palpitations Less SOB and wheezing and cough - feels better - Current Medication List Current Medications: Active Medications Acetaminophen (Tylenol -) 650 mg PO Q6H PRN PRN Reason: FEVER OR PAIN Aclidinium [place] (Tudorza -) 1 puff IH BID [facility] Last Admin: 11/25/16 09:51 Dose: Not Given Albuterol Sulfate (Ventolin 0.083% Nebulizer Soln -) 1 amp NEB Q4H PRN PRN Reason: SHORT OF BREATH/WHEEZING Last Admin: 11/25/16 00:05 Dose: 1 amp Allopurinol (Zyloprim -) 100 mg PO DAILY [facility] Last Admin: 11/25/16 09:47 Dose: 100 mg Aspirin (Asa -) 81 mg PO Q2D@1000 [facility] Last Admin: 11/24/16 10:56 Dose: 81 mg Budesonide/Formoterol Fumarate (Symbicort 160/4.5mcg -) 2 puff IH BID [facility] Last Admin: 11/25/16 09:51 Dose: 2 puff Diltiazem HCl (Cardizem Cd -) 120 mg PO DAILY [facility] Last Admin: 11/25/16 09:49 Dose: 120 mg Docusate Sodium (Colace -) 100 mg PO BID [facility] Last Admin: 11/25/16 09:47 Dose: 100 mg Fentanyl (Duragesic 75mcg Patch -) 1 patch TD Q72H [facility] Last Admin: 11/22/16 22:05 Dose: 1 patch Ferrous Sulfate (Feosol -) 325 mg PO BID [facility] Last Admin: 11/25/16 09:47 Dose: 325 mg Furosemide (Lasix Injection -) 40 mg IVPUSH BID@0600,1400 [facility] Last Admin: 11/25/16 06:29 Dose: 40 mg Gemfibrozil (Lopid -) 600 mg PO BIDAC [facility] Last Admin: 11/25/16 06:28 Dose: 600 mg Heparin Sodium (Porcine) (Heparin -) 5,000 unit SQ BID [facility] Last Admin: 11/25/16 09:46 Dose: 5,000 unit Hydromorphone HCl (Dilaudid Injection -) 2 mg IVPB TID [facility] Last Admin: 11/25/16 06:29 Dose: 2 mg Insulin Aspart (Novolog Mix 70/30 Vial) 38 units SQ BIDAC [facility] Last Admin: 11/25/16 06:30 Dose: 38 units Insulin Aspart (Novolog Vial Sliding Scale -) 1 vial SQ ACHS JOSE LUIS PRN Reason: Protocol Last Admin: 11/25/16 06:30 Dose: 9 units Lactulose (Cephulac (Oral Use)) 10 gm PO DAILY [facility] Last Admin: 11/25/16 09:50 Dose: 10 gm Losartan Potassium (Cozaar -) 25 mg PO DAILY [facility] Last Admin: 11/25/16 09:48 Dose: 25 mg Methylnaltrexone [place] (Relistor -) 12 mg SQ DAILY [facility] Last Admin: 11/25/16 09:49 Dose: 12 mg Methylprednisolone Sodium Succinate (Solu-Medrol -) 40 mg IVPB Q6H-IV [facility] Last Admin: 11/25/16 09:46 Dose: 40 mg Metoclopramide HCl (Reglan -) 5 mg PO TIDAC [facility] Last Admin: 11/25/16 06:28 Dose: 5 mg Miscellaneous (Duragesic Patch Waste) 1 each TD PRN PRN Ranitidine HCl (Zantac -) 300 mg PO DAILY [facility] Last Admin: 11/25/16 09:47 Dose: 300 mg Roflumilast (Daliresp -) 500 mcg PO DAILY [facility] Last Admin: 11/25/16 09:50 Dose: 500 mcg Senna (Senna -) 2 tab PO HS PRN PRN Reason: CONSTIPATION Last Admin: 11/22/16 22:03 Dose: 2 tab Sitagliptin Phosphate (Januvia -) 25 mg PO DAILY@0700 [facility] Last Admin: 11/25/16 06:27 Dose: 25 mg Sodium Chloride ([place] Nasal [place] -) 2 spray NS BID PRN PRN Reason: NASAL CONGESTION Last Admin: 11/23/16 10:40 Dose: 2 spray Tamsulosin HCl (Flomax -) 0.4 mg PO BID [facility] Last Admin: 11/25/16 09:47 Dose: 0.4 mg Terazosin HCl (Hytrin -) 5 mg PO HS [facility] Last Admin: 11/24/16 21:43 Dose: 5 mg - Objective Vital Signs: Vital Signs Temperature 98.1 F 11/25/16 06:17 Pulse Rate 86 03/26/17 06:17 Respiratory Rate 18 11/25/16 06:17 Blood Pressure 148/67 11/25/16 06:17 O2 Sat by Pulse Oximetry (%) 89 L 11/24/16 21:00 Neck: Yes: Supple Cardiovascular: Yes: Regular Rate and Rhythm, S1, S2 Respiratory: Yes: Diminished Gastrointestinal: Yes: Normal Bowel Sounds, Soft. No: Tenderness Edema: No Labs: CBC, BMP 11/25/16 06:30 11/25/16 06:30 Problem List - Problems (1) Cough Code(s): R05 - COUGH (2) Diabetes mellitus, insulin dependent (IDDM), uncontrolled Code(s): E10.65 - TYPE 1 DIABETES MELLITUS WITH HYPERGLYCEMIA Qualifiers: Diabetes mellitus complication status: without complication Qualified Code(s): E10.9 - Type 1 diabetes mellitus without complications (3) HTN (hypertension) Code(s): I10 - ESSENTIAL (PRIMARY) HYPERTENSION Qualifiers: Hypertension type: essential hypertension Qualified Code(s): I10 - Essential (primary) hypertension (4) Hyperlipidemia LDL goal < 100 Code(s): E78.5 - HYPERLIPIDEMIA, UNSPECIFIED (5) Shortness of breath Code(s): R06.02 - SHORTNESS OF BREATH (6) Acute on chronic diastolic (congestive) heart failure Code(s): I50.33 - ACUTE ON CHRONIC DIASTOLIC (CONGESTIVE) HEART FAILURE (7) Acute on chronic respiratory failure with hypoxia and hypercapnia Code(s): J96.21 - ACUTE AND CHRONIC RESPIRATORY FAILURE WITH HYPOXIA J96.22 - ACUTE AND CHRONIC RESPIRATORY FAILURE WITH HYPERCAPNIA (8) [id number] kidney injury Code(s): N17.9 - ACUTE KIDNEY FAILURE, UNSPECIFIED N18.9 - CHRONIC KIDNEY DISEASE, UNSPECIFIED (9) Anemia Code(s): D64.9 - ANEMIA, UNSPECIFIED Qualifiers: Anemia type: unspecified type Qualified Code(s): D64.9 - Anemia, unspecified (10) COPD (chronic obstructive pulmonary disease) Code(s): J44.9 - CHRONIC OBSTRUCTIVE PULMONARY DISEASE, UNSPECIFIED Qualifiers : COPD type: chronic bronchitis (11) Pneumonia Code(s): J18.9 - PNEUMONIA, UNSPECIFIED ORGANISM Qualifiers: Pneumonia type: due to unspecified organism Laterality: right Lung location: lower lobe of lung Qualified Code(s): J18.1 - Lobar pneumonia, unspecified organism Assessment/Plan 1. Acute on chronic LV diastolic heart failure 2. COPD with chronic hypoxic respiratory failure - improving 3. Insulin-dependent type 2 diabetes mellitus 4. Hypercholesterolemia 5. Anemia 6. CKD 7. HTN PLAN: 1. Lasix IV with monitoring renal function and electrolytes 2. Continue ASA 81 mg QD, Lopid 600 mg BID, Cardizem CD 120 mg QD, Cozaar 25 mg QD and Hytrin 5 mg QHS 3. Bronchodilator, O2 to keep SpO2 >90%, IV steroid, Daliresp and compression therapy 4. DVT and GI prophylaxix 5. Eventually pulmonary rehab Further plans are to follow Nicholas Silver MD
[2016-11-25] MEDS ORDERED: PT OWN MED DRAWER 7, Y5N ONE ×2 (10:19→11:17)
--- NOTE | 2016-11-25 10:31 | PN ---
Progress Note, Physician Chief Complaint: IN [employer] WITH PAIN CONTROL PLEASED WITH MEDICAL TREATMENT - Current Medication List Current Medications: Active Medications Acetaminophen (Tylenol -) 650 mg PO Q6H PRN PRN Reason: FEVER OR PAIN Aclidinium [place] (Tudorza -) 1 puff IH BID [facility] Last Admin: 11/25/16 09:51 Dose: Not Given Albuterol Sulfate (Ventolin 0.083% Nebulizer Soln -) 1 amp NEB Q4H PRN PRN Reason: SHORT OF BREATH/WHEEZING Last Admin: 11/25/16 00:05 Dose: 1 amp Allopurinol (Zyloprim -) 100 mg PO DAILY [facility] Last Admin: 11/25/16 09:47 Dose: 100 mg Aspirin (Asa -) 81 mg PO Q2D@1000 [facility] Last Admin: 11/24/16 10:56 Dose: 81 mg Budesonide/Formoterol Fumarate (Symbicort 160/4.5mcg -) 2 puff IH BID [facility] Last Admin: 11/25/16 09:51 Dose: 2 puff Diltiazem HCl (Cardizem Cd -) 120 mg PO DAILY [facility] Last Admin: 11/25/16 09:49 Dose: 120 mg Docusate Sodium (Colace -) 100 mg PO BID [facility] Last Admin: 11/25/16 09:47 Dose: 100 mg Fentanyl (Duragesic 75mcg Patch -) 1 patch TD Q72H [facility] Last Admin: 11/22/16 22:05 Dose: 1 patch Ferrous Sulfate (Feosol -) 325 mg PO BID [facility] Last Admin: 11/25/16 09:47 Dose: 325 mg Furosemide (Lasix Injection -) 40 mg IVPUSH BID@0600,1400 [facility] Last Admin: 11/25/16 06:29 Dose: 40 mg Gemfibrozil (Lopid -) 600 mg PO BIDAC [facility] Last Admin: 11/25/16 06:28 Dose: 600 mg Heparin Sodium (Porcine) (Heparin -) 5,000 unit SQ BID [facility] Last Admin: 11/25/16 09:46 Dose: 5,000 unit Hydromorphone HCl (Dilaudid Injection -) 2 mg IVPB TID [facility] Last Admin: 11/25/16 06:29 Dose: 2 mg Insulin Aspart (Novolog Mix 70/30 Vial) 38 units SQ BIDAC [facility] Last Admin: 11/25/16 06:30 Dose: 38 units Insulin Aspart (Novolog Vial Sliding Scale -) 1 vial SQ ACHS JOSE LUIS PRN Reason: Protocol Last Admin: 11/25/16 06:30 Dose: 9 units Lactulose (Cephulac (Oral Use)) 10 gm PO DAILY [facility] Last Admin: 11/25/16 09:50 Dose: 10 gm Losartan Potassium (Cozaar -) 25 mg PO DAILY [facility] Last Admin: 11/25/16 09:48 Dose: 25 mg Methylnaltrexone [place] (Relistor -) 12 mg SQ DAILY [facility] Last Admin: 11/25/16 09:49 Dose: 12 mg Methylprednisolone Sodium Succinate (Solu-Medrol -) 40 mg IVPB Q6H-IV [facility] Last Admin: 11/25/16 09:46 Dose: 40 mg Metoclopramide HCl (Reglan -) 5 mg PO TIDAC [facility] Last Admin: 11/25/16 06:28 Dose: 5 mg Miscellaneous (Duragesic Patch Waste) 1 each TD PRN PRN Ranitidine HCl (Zantac -) 300 mg PO DAILY [facility] Last Admin: 11/25/16 09:47 Dose: 300 mg Roflumilast (Daliresp -) 500 mcg PO DAILY [facility] Last Admin: 11/25/16 09:50 Dose: 500 mcg Senna (Senna -) 2 tab PO HS PRN PRN Reason: CONSTIPATION Last Admin: 11/22/16 22:03 Dose: 2 tab Sitagliptin Phosphate (Januvia -) 25 mg PO DAILY@0700 [facility] Last Admin: 11/25/16 06:27 Dose: 25 mg Sodium Chloride ([place] Nasal [place] -) 2 spray NS BID PRN PRN Reason: NASAL CONGESTION Last Admin: 11/23/16 10:40 Dose: 2 spray Tamsulosin HCl (Flomax -) 0.4 mg PO BID [facility] Last Admin: 11/25/16 09:47 Dose: 0.4 mg Terazosin HCl (Hytrin -) 5 mg PO HS [facility] Last Admin: 11/24/16 21:43 Dose: 5 mg - Objective Vital Signs: Vital Signs Temperature 98.1 F 11/25/16 06:17 Pulse Rate 86 11/25/16 06:17 Respiratory Rate 18 11/25/16 06:17 Blood Pressure 148/67 11/25/16 06:17 O2 Sat by Pulse Oximetry (%) 89 L 11/24/16 21:00 Cardiovascular: Yes: WNL Respiratory: Yes: Rhonchi Gastrointestinal: Yes: WNL Edema: No (USUALLY HAS EDEMA) Labs: CBC, BMP 11/25/16 06:30 11/25/16 06:30 INR, PTT INR 0.96 (0.82-1.09) 11/22/16 17:00 Problem List - Problems (1) Diabetes mellitus, insulin dependent (IDDM), uncontrolled Code(s): E10.65 - TYPE 1 DIABETES MELLITUS WITH HYPERGLYCEMIA Qualifiers: Diabetes mellitus complication status: without complication Qualified Code(s): E10.9 - Type 1 diabetes mellitus without complications (2) HTN (hypertension) Code(s): I10 - ESSENTIAL (PRIMARY) HYPERTENSION Qualifiers: Hypertension type: essential hypertension Qualified Code(s): I10 - Essential (primary) hypertension (3) Shortness of breath Code(s): R06.02 - SHORTNESS OF BREATH (4) CHF (congestive heart failure) Code(s): I50.9 - HEART FAILURE, UNSPECIFIED Qualifiers: Congestive heart failure type: diastolic (5) COPD (chronic obstructive pulmonary disease) Code(s): J44.9 - CHRONIC OBSTRUCTIVE PULMONARY DISEASE, UNSPECIFIED Qualifiers : COPD type: chronic bronchitis Assessment/Plan (1) Acute on chronic diastolic (congestive) heart failure Assessment/Plan: iv lasix continue other cardiac meds will monitor renal fucntion Code(s): I50.33 - ACUTE ON CHRONIC DIASTOLIC (CONGESTIVE) HEART FAILURE (2) BPH (benign prostatic hyperplasia) Assessment/Plan: flomax Code(s): N40.0 - BENIGN PROSTATIC HYPERPLASIA WITHOUT LOWER URINRY TRACT SYMP (3) COPD (chronic obstructive pulmonary disease) Assessment/Plan: ivsteroids daliresp symbicrot and spririva Code(s): J44.9 - CHRONIC OBSTRUCTIVE PULMONARY DISEASE, UNSPECIFIED Qualifiers : COPD type: chronic bronchitis (4) Constipation due to opioid therapy Assessment/Plan: movantik Code(s): K59.09 - OTHER CONSTIPATION T40.2X5A - ADVERSE EFFECT OF OTHER OPIOIDS, INITIAL ENCOUNTER (5) Diabetes mellitus Assessment/Plan: check hga1c -> f/u has been on steroids on last admission and this admission tighter glyemic control endo on case 70/30 increased Code(s): E11.9 - TYPE 2 DIABETES MELLITUS WITHOUT COMPLICATIONS Qualifiers: Diabetes mellitus type: type 2 Diabetes mellitus complication status: without complication 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
[2016-11-25 10:37] LABS: METAMYELOCYTE 1 % (0-2)
--- NOTE | 2016-11-25 11:13 | PN ---
Progress Note (short form) - Note Progress Note: RENAL Pt seen and examined feels well Last Vital Signs Temp Pulse Resp BP Pulse Ox 98.9 F 101 H 20 141/53 89 L 11/25/16 10:00 11/25/16 10:00 11/25/16 10:00 11/25/16 10:00 11/24/16 21:00 obese lungs rhonchi bilat, some wheezing cvs s1s2 rr abd soft, obese ext +edema, wears stocking neuro a+ox3 Current Medications Generic Name Dose Route Start Last Admin Trade Name Freq PRN Reason Stop Dose Admin Acetaminophen 650 mg 11/22/16 18:22 Tylenol - PO Q6H PRN FEVER OR PAIN Aclidinium [place] 1 puff 11/23/16 22:00 11/25/16 09:51 Tudorza - IH Not Given BID JOSE LUIS Albuterol Sulfate 1 amp 11/23/16 13:35 11/25/16 00:05 Ventolin 0.083% Nebulizer Soln - NEB 1 amp Q4H PRN Administration SHORT OF BREATH/WHEEZING Allopurinol 100 mg 11/23/16 10:00 11/25/16 09:47 Zyloprim - PO 100 mg DAILY JOSE LUIS Administration Aspirin 81 mg 11/24/16 10:00 11/24/16 10:56 Asa - PO 81 mg Q2D@1000 JOSE LUIS Administration Budesonide/Formoterol Fumarate 2 puff 11/22/16 22:00 11/25/16 09:51 Symbicort 160/4.5mcg - IH 2 puff BID JOSE LUIS Administration Diltiazem HCl 120 mg 11/23/16 10:00 11/25/16 09:49 Cardizem Cd - PO 120 mg DAILY JOSE LUIS Administration Docusate Sodium 100 mg 11/22/16 22:00 11/25/16 09:47 Colace - PO 100 mg BID JOSE LUIS Administration Fentanyl 1 patch 11/22/16 18:30 11/22/16 22:05 Duragesic 75mcg Patch - TD 1 patch Q72H JOSE LUIS Administration Ferrous Sulfate 325 mg 11/22/16 22:00 11/25/16 09:47 Feosol - PO 325 mg BID JOSE LUIS Administration Furosemide 40 mg 11/23/16 06:00 11/25/16 06:29 Lasix Injection - IVPUSH 40 mg BID@0600,1400 JOSE LUIS Administration Gemfibrozil 600 mg 11/23/16 07:00 11/25/16 06:28 Lopid - PO 600 mg BIDAC JOSE LUIS Administration Heparin Sodium (Porcine) 5,000 unit 11/22/16 22:00 11/25/16 09:46 Heparin - SQ 5,000 unit BID JOSE LUIS Administration Hydromorphone HCl 2 mg 11/24/16 18:30 11/25/16 06:29 Dilaudid Injection - IVPB 2 mg TID JOSE LUIS Administration Insulin Aspart 1 vial 11/23/16 20:53 11/25/16 06:30 Novolog Vial Sliding Scale - SQ 9 units ACHS JOSE LUIS Administration Protocol Insulin Aspart 45 units 11/25/16 10:30 Novolog Mix 70/30 Vial SQ BIDAC JOSE LUIS Lactulose 10 gm 11/23/16 10:00 11/25/16 09:50 Cephulac (Oral Use) PO 10 gm DAILY JOSE LUIS Administration Losartan Potassium 25 mg 11/23/16 10:00 11/25/16 09:48 Cozaar - PO 25 mg DAILY JOSE LUIS Administration Methylnaltrexone [place] 12 mg 11/24/16 10:00 11/25/16 09:49 Relistor - SQ 12 mg DAILY JOSE LUIS Administration Methylprednisolone Sodium Succinate 40 mg 11/22/16 21:00 11/25/16 09:46 Solu-Medrol - IVPB 40 mg Q6H-IV JOSE LUIS Administration Metoclopramide HCl 5 mg 11/23/16 07:00 11/25/16 06:28 Reglan - PO 5 mg TIDAC JOSE LUIS Administration Miscellaneous 1 each 11/22/16 18:58 Duragesic Patch Waste TD PRN PRN Ranitidine HCl 300 mg 11/23/16 10:00 11/25/16 09:47 Zantac - PO 300 mg DAILY JOSE LUIS Administration Roflumilast 500 mcg 11/23/16 10:00 11/25/16 09:50 Daliresp - PO 500 mcg DAILY JOSE LUIS Administration Senna 2 tab 11/22/16 18:22 11/22/16 22:03 Senna - PO 2 tab HS PRN Administration CONSTIPATION Sitagliptin Phosphate 25 mg 11/23/16 07:00 11/25/16 06:27 Januvia - PO 25 mg DAILY@0700 JOSE LUIS Administration Sodium Chloride 2 spray 11/22/16 18:22 11/23/16 10:40 [place] Nasal [place] - NS 2 spray BID PRN Administration NASAL CONGESTION Tamsulosin HCl 0.4 mg 11/22/16 22:00 11/25/16 09:47 Flomax - PO 0.4 mg BID JOSE LUIS Administration Terazosin HCl 5 mg 11/22/16 22:00 11/24/16 21:43 Hytrin - PO 5 mg HS JOSE LUIS Administration CBC, BMP 11/25/16 06:30 11/25/16 06:30 Impression 1. CKD 2. DM 3. HTN 4. CHF 5. COPD 6. fluid overload 7. BPH 8. insomnia 9. 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 He has been hyperglycemic. High bun in part from steroids MV
[2016-11-25] MEDS ORDERED: INSULIN (NOVOLOG) ASPART 100 UNITS/ML 10ML VIAL ONE ×2 (11:50→17:53)
[2016-11-25] MEDS: FUROSEMIDE 40 MG TABLET (FP) PO SCH (14:13)
--- NOTE | 2016-11-25 14:39 | PN ---
Progress Note, Physician History of Present Illness: pulmonary feeling better,less cough,less congestion - Current Medication List Current Medications: Active Medications Acetaminophen (Tylenol -) 650 mg PO Q6H PRN PRN Reason: FEVER OR PAIN Aclidinium [place] (Tudorza -) 1 puff IH BID [facility] Last Admin: 11/25/16 09:51 Dose: Not Given Albuterol Sulfate (Ventolin 0.083% Nebulizer Soln -) 1 amp NEB Q4H PRN PRN Reason: SHORT OF BREATH/WHEEZING Last Admin: 11/25/16 12:11 Dose: 1 amp Allopurinol (Zyloprim -) 100 mg PO DAILY [facility] Last Admin: 11/25/16 09:47 Dose: 100 mg Aspirin (Asa -) 81 mg PO Q2D@1000 [facility] Last Admin: 11/24/16 10:56 Dose: 81 mg Budesonide/Formoterol Fumarate (Symbicort 160/4.5mcg -) 2 puff IH BID [facility] Last Admin: 11/25/16 09:51 Dose: 2 puff Diltiazem HCl (Cardizem Cd -) 120 mg PO DAILY [facility] Last Admin: 11/25/16 09:49 Dose: 120 mg Docusate Sodium (Colace -) 100 mg PO BID [facility] Last Admin: 11/25/16 09:47 Dose: 100 mg Fentanyl (Duragesic 75mcg Patch -) 1 patch TD Q72H [facility] Last Admin: 11/22/16 22:05 Dose: 1 patch Ferrous Sulfate (Feosol -) 325 mg PO BID [facility] Last Admin: 11/25/16 09:47 Dose: 325 mg Furosemide (Lasix -) 40 mg PO BID@0600,1400 [facility] Last Admin: 11/25/16 14:13 Dose: 40 mg Gemfibrozil (Lopid -) 600 mg PO BIDAC [facility] Last Admin: 11/25/16 06:28 Dose: 600 mg Heparin Sodium (Porcine) (Heparin -) 5,000 unit SQ BID [facility] Last Admin: 11/25/16 09:46 Dose: 5,000 unit Hydromorphone HCl (Dilaudid Injection -) 2 mg IVPB TID [facility] Last Admin: 11/25/16 14:13 Dose: 2 mg Insulin Aspart (Novolog Vial Sliding Scale -) 1 vial SQ ACHS [facility] PRN Reason: Protocol Last Admin: 11/25/16 12:10 Dose: 8 units Insulin Aspart (Novolog Mix 70/30 Vial) 45 units SQ BIDAC [facility] Lactulose (Cephulac (Oral Use)) 10 gm PO DAILY [facility] Last Admin: 11/25/16 09:50 Dose: 10 gm Losartan Potassium (Cozaar -) 25 mg PO DAILY [facility] Last Admin: 11/25/16 09:48 Dose: 25 mg Methylnaltrexone [place] (Relistor -) 12 mg SQ DAILY [facility] Last Admin: 11/25/16 09:49 Dose: 12 mg Methylprednisolone Sodium Succinate (Solu-Medrol -) 40 mg IVPB Q6H-IV [facility] Last Admin: 11/25/16 09:46 Dose: 40 mg Metoclopramide HCl (Reglan -) 5 mg PO TIDAC [facility] Last Admin: 11/25/16 12:11 Dose: 5 mg Miscellaneous (Duragesic Patch Waste) 1 each TD PRN PRN Ranitidine HCl (Zantac -) 300 mg PO DAILY [facility] Last Admin: 11/25/16 09:47 Dose: 300 mg Roflumilast (Daliresp -) 500 mcg PO DAILY [facility] Last Admin: 11/25/16 09:50 Dose: 500 mcg Senna (Senna -) 2 tab PO HS PRN PRN Reason: CONSTIPATION Last Admin: 11/22/16 22:03 Dose: 2 tab Sitagliptin Phosphate (Januvia -) 25 mg PO DAILY@0700 [facility] Last Admin: 11/25/16 06:27 Dose: 25 mg Sodium Chloride ([place] Nasal [place] -) 2 spray NS BID PRN PRN Reason: NASAL CONGESTION Last Admin: 11/23/16 10:40 Dose: 2 spray Tamsulosin HCl (Flomax -) 0.4 mg PO BID [facility] Last Admin: 11/25/16 09:47 Dose: 0.4 mg Terazosin HCl (Hytrin -) 5 mg PO HS [facility] Last Admin: 11/24/16 21:43 Dose: 5 mg - Objective Vital Signs: Vital Signs Temperature 98.9 F 11/25/16 10:00 Pulse Rate 101 H 11/25/16 10:00 Respiratory Rate 20 11/25/16 10:00 Blood Pressure 141/53 11/25/16 10:00 O2 Sat by Pulse Oximetry (%) 89 L 11/24/16 21:00 Constitutional: Yes: Well Nourished, Calm, Obese Eyes: Yes: WNL HENT: Yes: WNL Neck: Yes: WNL Cardiovascular: Yes: Regular Rate and Rhythm, S1, S2 Respiratory: Yes: Rhonchi (less rhonchi bilaterally) Gastrointestinal: Yes: Normal Bowel Sounds, Soft Extremities: Yes: WNL Edema: Yes (less edema) Labs: CBC, BMP 11/25/16 06:30 11/25/16 06:30 INR, PTT INR 0.96 (0.82-1.09) 11/22/16 17:00 Problem List - Problems (1) Cough Code(s): R05 - COUGH (2) Diabetes mellitus, insulin dependent (IDDM), uncontrolled Code(s): E10.65 - TYPE 1 DIABETES MELLITUS WITH HYPERGLYCEMIA Qualifiers: Diabetes mellitus complication status: without complication Qualified Code(s): E10.9 - Type 1 diabetes mellitus without complications (3) HTN (hypertension) Code(s): I10 - ESSENTIAL (PRIMARY) HYPERTENSION Qualifiers: Hypertension type: essential hypertension Qualified Code(s): I10 - Essential (primary) hypertension (4) Hyperlipidemia LDL goal < 100 Code(s): E78.5 - HYPERLIPIDEMIA, UNSPECIFIED (5) Shortness of breath Code(s): R06.02 - SHORTNESS OF BREATH (6) Wheeze Code(s): R06.2 - WHEEZING (7) Anemia Code(s): D64.9 - ANEMIA, UNSPECIFIED Qualifiers: Anemia type: unspecified type Qualified Code(s): D64.9 - Anemia, unspecified (8) Anemia in chronic kidney disease Code(s): N18.9 - CHRONIC KIDNEY DISEASE, UNSPECIFIED D63.1 - ANEMIA IN CHRONIC KIDNEY DISEASE (9) CHF (congestive heart failure) Code(s): I50.9 - HEART FAILURE, UNSPECIFIED Qualifiers: Congestive heart failure type: diastolic (10) COPD (chronic obstructive pulmonary disease) Code(s): J44.9 - CHRONIC OBSTRUCTIVE PULMONARY DISEASE, UNSPECIFIED Qualifiers : COPD type: chronic bronchitis (11) Chronic respiratory failure with hypoxia Code(s): J96.11 - CHRONIC RESPIRATORY FAILURE WITH HYPOXIA Assessment/Plan IMP DECOMPENSATED COPD CHRONIC HYPOXEMIC RESPIRATORY FAILURE CHF HTN CKD ANEMIA DM PLAN TAPER STEROIDS INHALED BRONCHODILATORS BIPAP AT NIGHT AND PRN O2 ANTIBIOTICS LASIX MONITOR ZEIAN CEVALLOS Problem List - Problems (1) Cough Code(s): R05 - COUGH (2) Diabetes mellitus, insulin dependent (IDDM), uncontrolled Code(s): E10.65 - TYPE 1 DIABETES MELLITUS WITH HYPERGLYCEMIA Qualifiers: Diabetes mellitus complication status: without complication Qualified Code(s): E10.9 - Type 1 diabetes mellitus without complications (3) HTN (hypertension) Code(s): I10 - ESSENTIAL (PRIMARY) HYPERTENSION Qualifiers: Hypertension type: essential hypertension Qualified Code(s): I10 - Essential (primary) hypertension (4) Hyperlipidemia LDL goal < 100 Code(s): E78.5 - HYPERLIPIDEMIA, UNSPECIFIED (5) Shortness of breath Code(s): R06.02 - SHORTNESS OF BREATH (6) Wheeze Code(s): R06.2 - WHEEZING (7) Anemia Code(s): D64.9 - ANEMIA, UNSPECIFIED Qualifiers: Anemia type: unspecified type Qualified Code(s): D64.9 - Anemia, unspecified (8) Anemia in chronic kidney disease Code(s): N18.9 - CHRONIC KIDNEY DISEASE, UNSPECIFIED D63.1 - ANEMIA IN CHRONIC KIDNEY DISEASE (9) CHF (congestive heart failure) Code(s): I50.9 - HEART FAILURE, UNSPECIFIED Qualifiers: Congestive heart failure type: diastolic (10) COPD (chronic obstructive pulmonary disease) Code(s): J44.9 - CHRONIC OBSTRUCTIVE PULMONARY DISEASE, UNSPECIFIED Qualifiers : COPD type: chronic bronchitis (11) Chronic respiratory failure with hypoxia Code(s): J96.11 - CHRONIC RESPIRATORY FAILURE WITH HYPOXIA
[2016-11-25] MEDS: fentaNYL 75mcg/hr PATCH.TD72 TD SCH (17:39)
[2016-11-25] MEDS: TERAZOSIN HCL 5 MG CAPSULE PO SCH (22:03)
[2016-11-26] MEDS: methylPREDNISolone NA SUCC 40 MG/1 ML VIAL IVPB SCH ×2 (02:16→09:56)
[2016-11-26] MEDS: FUROSEMIDE 40 MG TABLET (FP) PO SCH ×2 (06:01→13:42)
[2016-11-26] MEDS: HYDROmorphone HCL CARPU-JECT 2 MG/1 ML DISP.SYRIN IVPB SCH ×4 (06:02→22:14)
[2016-11-26] MEDS: GEMFIBROZIL 600 MG TABLET (FP) PO SCH ×2 (06:02→17:37)
[2016-11-26] MEDS: METOCLOPRAMIDE HCL 10 MG TABLET (FP) PO SCH ×3 (06:02→17:37)
[2016-11-26] MEDS: INSULIN SLIDING SCALE (NOVOLOG) 1 VIAL SQ SCH ×4 (06:07→21:30)
[2016-11-26] MEDS: INSULIN (NOVOLOG MIX 70/30) 100 UNITS/ML MDV SQ SCH ×2 (06:07→17:44)
[2016-11-26 08:18] LABS: BASOPHIL 0.1 % (0-2.0); MCH 29.6 pg (25.7-33.7); MCHC 32.3 g/dl (32.0-35.9); MEAN CELL VOLUME 91.6 fl (80-96); MEAN PLT VOLUME 9.1 fl (7.5-11.1); NEUTROPHILS 94.9 % (42.8-82.8); PLATELET COUNT 181 K/MM3 (134-434); RDW 17.2 % (11.9-15.9); WHITE BLOOD COUNT 13.3 K/mm3 (4.0-10.0)
[2016-11-26 08:43] LABS: ALBUMIN 3.5 g/dl (3.4-5.0); BILIRUBIN,TOTAL 0.3 mg/dL (0.2-1.0); CALCIUM 8.8 mg/dL (8.5-10.1); CREATININE 2.3 mg/dL (0.7-1.3); TOT PROT 6.7 g/dl (6.4-8.2)
[2016-11-26] MEDS ORDERED: PT OWN MED DRAWER 7, Y5N ONE ×5 (08:54→18:02)
[2016-11-26] MEDS: RANITIDINE HCL 150 MG TABLET (FP) PO SCH (09:56)
[2016-11-26] MEDS: ASPIRIN 81 MG CHEWABLE TABLETS PO SCH (09:56)
[2016-11-26] MEDS: LOSARTAN POTASSIUM 25 MG TABLET PO SCH (09:56)
[2016-11-26] MEDS: TAMSULOSIN HCL 0.4 MG CAP.ER.24H (FP) PO SCH ×2 (09:56→21:31)
[2016-11-26] MEDS: DOCUSATE SODIUM 100 MG CAPSULE (FP) PO SCH ×2 (09:56→21:31)
[2016-11-26] MEDS: ALLOPURINOL 100 MG TABLET (FP) PO SCH (09:57)
[2016-11-26] MEDS: HEPARIN NA (PORCINE) 5,000 UNITS/ML 1ML VIAL SQ SCH ×2 (09:57→21:31)
[2016-11-26] MEDS: FERROUS SO4 325 MG TABLET (FP) PO SCH ×2 (09:57→21:31)
[2016-11-26] MEDS: ROFLUMILAST 500 MCG TABLET PO SCH (09:57)
[2016-11-26] MEDS: Methylnaltrexone Bromide 12 MG/0.6 ML KIT SQ SCH (09:58)
[2016-11-26] MEDS: LACTULOSE 20 GM/30 ML UDC (FOR ORAL USE ONLY) PO SCH (09:59)
[2016-11-26] MEDS ORDERED: TIOTROPIUM BROMIDE 18 MCG/INH (DEVICE W/ 5 CAPSULES) IH SCH (10:00)
[2016-11-26] MEDS: BUDESONIDE/FORMETEROL FUMARATE 160/4.5 mcg INHALER IH SCH ×2 (10:05→21:58)
[2016-11-26] MEDS: sitaGLIPtin PHOSPHATE 25 MG TABLET (FP) PO SCH (10:08)
--- NOTE | 2016-11-26 10:35 | PN ---
Progress Note (short form) - Note Progress Note: PULMONARY States breathing better today. +cough with white sputum and wheezing. No fevers or chills. Last Vital Signs Temp Pulse Resp BP Pulse Ox 98.1 F 91 H 22 151/80 97 11/26/16 06:00 11/26/16 06:00 11/26/16 06:00 11/26/16 06:00 11/26/16 01:41 Gen: NAD in chair Heart: RRR Lung: scattered bilateral wheezes, rhonchi Abd: soft, nontender Ext: + edema CBC, BMP 11/26/16 06:30 11/26/16 06:30 Active Medications Acetaminophen (Tylenol -) 650 mg PO Q6H PRN PRN Reason: FEVER OR PAIN Albuterol Sulfate (Ventolin 0.083% Nebulizer Soln -) 1 amp NEB Q4H PRN PRN Reason: SHORT OF BREATH/WHEEZING Last Admin: 11/25/16 22:09 Dose: 1 amp Allopurinol (Zyloprim -) [address] [facility] Last Admin: 11/26/16 09:57 Dose: 100 mg Aspirin (Asa -) 81 mg PO Q2D@1000 [facility] Last Admin: 11/26/16 09:56 Dose: 81 mg Budesonide/Formoterol Fumarate (Symbicort 160/4.5mcg -) [address] [facility] Last Admin: 11/26/16 10:05 Dose: 2 puff Diltiazem HCl (Cardizem Cd -) [address] [facility] Last Admin: 11/26/16 09:57 Dose: 120 mg Docusate Sodium (Colace -) [address] [facility] Last Admin: 11/26/16 09:56 Dose: 100 mg Fentanyl (Duragesic 75mcg Patch -) [address] [facility] Last Admin: 11/25/16 17:39 Dose: 1 patch Ferrous Sulfate (Feosol -) [address] [facility] Last Admin: 11/26/16 09:57 Dose: 325 mg Furosemide (Lasix -) 40 mg PO BID@0600,1400 [facility] Last Admin: 11/26/16 06:01 Dose: 40 mg Gemfibrozil (Lopid -) [address] [facility] Last Admin: 11/26/16 06:02 Dose: 600 mg Heparin Sodium (Porcine) (Heparin -) 5,000 unit SQ BID [facility] Last Admin: 11/26/16 09:57 Dose: 5,000 unit Hydromorphone HCl (Dilaudid Injection -) [address] [facility] Last Admin: 11/26/16 06:02 Dose: 2 mg Insulin Aspart (Novolog Vial Sliding Scale -) 1 vial SQ ACHS [facility] PRN Reason: Protocol Last Admin: 11/26/16 06:07 Dose: 9 units Insulin Aspart (Novolog Mix 70/30 Vial) [address] [facility] Last Admin: 11/26/16 06:07 Dose: 45 units Lactulose (Cephulac (Oral Use)) [address] [facility] Last Admin: 11/26/16 09:59 Dose: 10 gm Losartan Potassium (Cozaar -) [address] [facility] Last Admin: 11/26/16 09:56 Dose: 25 mg Methylnaltrexone [place] (Relistor -) [address] [facility] Last Admin: 11/26/16 09:58 Dose: 12 mg Methylprednisolone Sodium Succinate (Solu-Medrol -) 40 mg IVPB Q8H-IV [facility] Metoclopramide HCl (Reglan -) [address] [facility] Last Admin: 11/26/16 06:02 Dose: 5 mg Miscellaneous (Duragesic Patch Waste) 1 each TD PRN PRN Ranitidine HCl (Zantac -) [address] [facility] Last Admin: 11/26/16 09:56 Dose: 300 mg Roflumilast (Daliresp -) [address] [facility] Last Admin: 11/26/16 09:57 Dose: 500 mcg Senna (Senna -) 2 tab PO HS PRN PRN Reason: CONSTIPATION Last Admin: 11/22/16 22:03 Dose: 2 tab Sitagliptin Phosphate (Januvia -) 25 mg PO DAILY@0700 [facility] Last Admin: 11/26/16 10:08 Dose: Not Given Sodium Chloride ([place] Nasal [place] -) 2 spray NS BID PRN PRN Reason: NASAL CONGESTION Last Admin: 11/23/16 10:40 Dose: 2 spray Tamsulosin HCl (Flomax -) 0.[address] [facility] Last Admin: 11/26/16 09:56 Dose: 0.4 mg Terazosin HCl (Hytrin -) [address] [facility] Last Admin: 11/25/16 22:03 Dose: 5 mg Tiotropium [place] (Spiriva -) 1 puff IH DAILY [facility] A/P Acute COPD Exacerbation Chronic Hypoxic Respiratory Failure CHF HTN DM CKD - agree with medrol taper - inhaled bronchodilators - O2 to keep SpO2 >90% - glucose control while on systemic steroids - BiPAP at night and PRN during day - lasix - monitor urine output, creatinine - DVT prophylaxis
[2016-11-26] MEDS ORDERED: INSULIN (NOVOLOG) ASPART 100 UNITS/ML 10ML VIAL ONE (11:58)
--- NOTE | 2016-11-26 13:31 | PN ---
Progress Note, Physician Chief Complaint: patient slept last night with the bipap patient is awake ambulating hallways breathing better - Current Medication List Current Medications: Active Medications Acetaminophen (Tylenol -) 650 mg PO Q6H PRN PRN Reason: FEVER OR PAIN Albuterol Sulfate (Ventolin 0.083% Nebulizer Soln -) 1 amp NEB Q4H PRN PRN Reason: SHORT OF BREATH/WHEEZING Last Admin: 11/25/16 22:09 Dose: 1 amp Allopurinol (Zyloprim -) 100 mg PO DAILY [facility] Last Admin: 11/26/16 09:57 Dose: 100 mg Aspirin (Asa -) 81 mg PO Q2D@1000 [facility] Last Admin: 11/26/16 09:56 Dose: 81 mg Budesonide/Formoterol Fumarate (Symbicort 160/4.5mcg -) 2 puff IH BID [facility] Last Admin: 11/26/16 10:05 Dose: 2 puff Diltiazem HCl (Cardizem Cd -) 120 mg PO DAILY [facility] Last Admin: 11/26/16 09:57 Dose: 120 mg Docusate Sodium (Colace -) 100 mg PO BID [facility] Last Admin: 11/26/16 09:56 Dose: 100 mg Fentanyl (Duragesic 75mcg Patch -) 1 patch TD Q72H [facility] Last Admin: 11/25/16 17:39 Dose: 1 patch Ferrous Sulfate (Feosol -) 325 mg PO BID [facility] Last Admin: 11/26/16 09:57 Dose: 325 mg Furosemide (Lasix -) 40 mg PO BID@0600,1400 [facility] Last Admin: 11/26/16 06:01 Dose: 40 mg Gemfibrozil (Lopid -) 600 mg PO BIDAC [facility] Last Admin: 11/26/16 06:02 Dose: 600 mg Heparin Sodium (Porcine) (Heparin -) 5,000 unit SQ BID [facility] Last Admin: 11/26/16 09:57 Dose: 5,000 unit Hydromorphone HCl (Dilaudid Injection -) 2 mg IVPB TID [facility] Last Admin: 11/26/16 06:02 Dose: 2 mg Insulin Aspart (Novolog Vial Sliding Scale -) 1 vial SQ ACHS [facility] PRN Reason: Protocol Last Admin: 11/26/16 12:07 Dose: Not Given Insulin Aspart (Novolog Mix 70/30 Vial) 45 units SQ BIDAC [facility] Last Admin: 11/26/16 06:07 Dose: 45 units Lactulose (Cephulac (Oral Use)) 10 gm PO DAILY [facility] Last Admin: 11/26/16 09:59 Dose: 10 gm Losartan Potassium (Cozaar -) 25 mg PO DAILY [facility] Last Admin: 11/26/16 09:56 Dose: 25 mg Methylnaltrexone [place] (Relistor -) 12 mg SQ DAILY [facility] Last Admin: 11/26/16 09:58 Dose: 12 mg Methylprednisolone Sodium Succinate (Solu-Medrol -) 40 mg IVPB Q8H-IV [facility] Metoclopramide HCl (Reglan -) 5 mg PO TIDAC [facility] Last Admin: 11/26/16 12:08 Dose: 5 mg Miscellaneous (Duragesic Patch Waste) 1 each TD PRN PRN Ranitidine HCl (Zantac -) 300 mg PO DAILY [facility] Last Admin: 11/26/16 09:56 Dose: 300 mg Roflumilast (Daliresp -) 500 mcg PO DAILY [facility] Last Admin: 11/26/16 09:57 Dose: 500 mcg Senna (Senna -) 2 tab PO HS PRN PRN Reason: CONSTIPATION Last Admin: 11/22/16 22:03 Dose: 2 tab Sitagliptin Phosphate (Januvia -) 25 mg PO DAILY@0700 [facility] Last Admin: 11/26/16 10:08 Dose: Not Given Sodium Chloride ([place] Nasal [place] -) 2 spray NS BID PRN PRN Reason: NASAL CONGESTION Last Admin: 11/23/16 10:40 Dose: 2 spray Tamsulosin HCl (Flomax -) 0.4 mg PO BID [facility] Last Admin: 11/26/16 09:56 Dose: 0.4 mg Terazosin HCl (Hytrin -) 5 mg PO HS [facility] Last Admin: 11/25/16 22:03 Dose: 5 mg Tiotropium [place] (Spiriva -) 1 puff IH DAILY [facility] - Objective Vital Signs: Vital Signs Temperature 98.1 F 11/26/16 06:00 Pulse Rate 87 11/26/16 11:40 Respiratory Rate 22 11/26/16 06:00 Blood Pressure 151/80 11/26/16 06:00 O2 Sat by Pulse Oximetry (%) 94 L 11/26/16 11:40 Constitutional: Yes: Calm Neck: Yes: Trachea Midline Cardiovascular: Yes: Regular Rate and Rhythm, S1, S2 Respiratory: Yes: Other (crackles) Gastrointestinal: Yes: Normal Bowel Sounds, Soft Extremities: Yes: Other (amparo stockings) Edema: Yes Neurological: Yes: Alert, Oriented Labs: CBC, BMP 11/26/16 06:30 11/26/16 06:30 INR, PTT INR 0.96 (0.82-1.09) 11/22/16 17:00 Problem List - Problems (1) COPD (chronic obstructive pulmonary disease) Assessment/Plan: iv steroids taper daliresp symbicrot and spririva Code(s): J44.9 - CHRONIC OBSTRUCTIVE PULMONARY DISEASE, UNSPECIFIED Qualifiers : COPD type: chronic bronchitis (2) Acute on chronic diastolic (congestive) heart failure Assessment/Plan: po lasix continue other cardiac meds will monitor renal fucntion Code(s): I50.33 - ACUTE ON CHRONIC DIASTOLIC (CONGESTIVE) HEART FAILURE (3) BPH (benign prostatic hyperplasia) Assessment/Plan: flomax Code(s): N40.0 - BENIGN PROSTATIC HYPERPLASIA WITHOUT LOWER URINRY TRACT SYMP (4) Constipation due to opioid therapy Assessment/Plan: change to relistor Code(s): K59.09 - OTHER CONSTIPATION T40.2X5A - ADVERSE EFFECT OF OTHER OPIOIDS, INITIAL ENCOUNTER (5) Diabetes mellitus Assessment/Plan: hga1c 7.8 has been on steroids on last admission and this admission tighter glyemic control while inpatient will increase insulin dose bc of steroiods Code(s): E11.9 - TYPE 2 DIABETES MELLITUS WITHOUT COMPLICATIONS Qualifiers: Diabetes mellitus type: type 2 Diabetes mellitus complication status: without complication 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
--- NOTE | 2016-11-26 15:03 | PN ---
Progress Note, Physician Chief Complaint: Events noted Feels better History of Present Illness: Patient was seen and examined. Awake and alert. Chart was reviewed Denies chest pain or palpitations. Respiratory status improved - Current Medication List Current Medications: Active Medications Acetaminophen (Tylenol -) 650 mg PO Q6H PRN PRN Reason: FEVER OR PAIN Albuterol Sulfate (Ventolin 0.083% Nebulizer Soln -) 1 amp NEB Q4H PRN PRN Reason: SHORT OF BREATH/WHEEZING Last Admin: 11/25/16 22:09 Dose: 1 amp Allopurinol (Zyloprim -) 100 mg PO DAILY [facility] Last Admin: 11/26/16 09:57 Dose: 100 mg Aspirin (Asa -) 81 mg PO Q2D@1000 [facility] Last Admin: 11/26/16 09:56 Dose: 81 mg Budesonide/Formoterol Fumarate (Symbicort 160/4.5mcg -) 2 puff IH BID [facility] Last Admin: 11/26/16 10:05 Dose: 2 puff Diltiazem HCl (Cardizem Cd -) 120 mg PO DAILY [facility] Last Admin: 11/26/16 09:57 Dose: 120 mg Docusate Sodium (Colace -) 100 mg PO BID [facility] Last Admin: 11/26/16 09:56 Dose: 100 mg Fentanyl (Duragesic 75mcg Patch -) 1 patch TD Q72H [facility] Last Admin: 11/25/16 17:39 Dose: 1 patch Ferrous Sulfate (Feosol -) 325 mg PO BID [facility] Last Admin: 11/26/16 09:57 Dose: 325 mg Furosemide (Lasix -) 40 mg PO BID@0600,1400 [facility] Last Admin: 11/26/16 13:42 Dose: 40 mg Gemfibrozil (Lopid -) 600 mg PO BIDAC [facility] Last Admin: 11/26/16 06:02 Dose: 600 mg Heparin Sodium (Porcine) (Heparin -) 5,000 unit SQ BID [facility] Last Admin: 11/26/16 09:57 Dose: 5,000 unit Hydromorphone HCl (Dilaudid Injection -) 2 mg IVPB TID [facility] Last Admin: 11/26/16 13:42 Dose: 2 mg Insulin Aspart (Novolog Vial Sliding Scale -) 1 vial SQ ACHS [facility] PRN Reason: Protocol Last Admin: 11/26/16 12:07 Dose: Not Given Insulin Aspart (Novolog Mix 70/30 Vial) 45 units SQ BIDAC [facility] Last Admin: 11/26/16 06:07 Dose: 45 units Lactulose (Cephulac (Oral Use)) 10 gm PO DAILY [facility] Last Admin: 11/26/16 09:59 Dose: 10 gm Losartan Potassium (Cozaar -) 25 mg PO DAILY [facility] Last Admin: 11/26/16 09:56 Dose: 25 mg Methylnaltrexone [place] (Relistor -) 12 mg SQ DAILY [facility] Last Admin: 11/26/16 09:58 Dose: 12 mg Methylprednisolone Sodium Succinate (Solu-Medrol -) 40 mg IVPB Q8H-IV [facility] Metoclopramide HCl (Reglan -) 5 mg PO TIDAC [facility] Last Admin: 11/26/16 12:08 Dose: 5 mg Miscellaneous (Duragesic Patch Waste) 1 each TD PRN PRN Ranitidine HCl (Zantac -) 300 mg PO DAILY [facility] Last Admin: 11/26/16 09:56 Dose: 300 mg Roflumilast (Daliresp -) 500 mcg PO DAILY [facility] Last Admin: 11/26/16 09:57 Dose: 500 mcg Senna (Senna -) 2 tab PO HS PRN PRN Reason: CONSTIPATION Last Admin: 11/22/16 22:03 Dose: 2 tab Sitagliptin Phosphate (Januvia -) 25 mg PO DAILY@0700 [facility] Last Admin: 11/26/16 10:08 Dose: Not Given Sodium Chloride ([place] Nasal [place] -) 2 spray NS BID PRN PRN Reason: NASAL CONGESTION Last Admin: 11/23/16 10:40 Dose: 2 spray Tamsulosin HCl (Flomax -) 0.4 mg PO BID [facility] Last Admin: 11/26/16 09:56 Dose: 0.4 mg Terazosin HCl (Hytrin -) 5 mg PO HS [facility] Last Admin: 11/25/16 22:03 Dose: 5 mg Tiotropium [place] (Spiriva -) 1 puff IH DAILY [facility] - Objective Vital Signs: Vital Signs Temperature 98 F 11/26/16 10:00 Pulse Rate 87 11/26/16 11:40 Respiratory Rate 18 11/26/16 10:00 Blood Pressure 133/80 11/26/16 10:00 O2 Sat by Pulse Oximetry (%) 94 L 11/26/16 11:40 Neck: Yes: Supple Cardiovascular: Yes: Regular Rate and Rhythm, S1, S2 Respiratory: Yes: Diminished Gastrointestinal: Yes: Normal Bowel Sounds, Soft. No: Tenderness Edema: Yes Edema: LLE: Trace, RLE: 1+ Labs: CBC, BMP 11/26/16 06:30 11/26/16 06:30 Problem List - Problems (1) Cough Code(s): R05 - COUGH (2) Diabetes mellitus, insulin dependent (IDDM), uncontrolled Code(s): E10.65 - TYPE 1 DIABETES MELLITUS WITH HYPERGLYCEMIA Qualifiers: Diabetes mellitus complication status: without complication Qualified Code(s): E10.9 - Type 1 diabetes mellitus without complications (3) HTN (hypertension) Code(s): I10 - ESSENTIAL (PRIMARY) HYPERTENSION Qualifiers: Hypertension type: essential hypertension Qualified Code(s): I10 - Essential (primary) hypertension (4) Hyperlipidemia LDL goal < 100 Code(s): E78.5 - HYPERLIPIDEMIA, UNSPECIFIED (5) Shortness of breath Code(s): R06.02 - SHORTNESS OF BREATH (6) Acute on chronic diastolic (congestive) heart failure Code(s): I50.33 - ACUTE ON CHRONIC DIASTOLIC (CONGESTIVE) HEART FAILURE (7) Acute on chronic respiratory failure with hypoxia and hypercapnia Code(s): J96.21 - ACUTE AND CHRONIC RESPIRATORY FAILURE WITH HYPOXIA J96.22 - ACUTE AND CHRONIC RESPIRATORY FAILURE WITH HYPERCAPNIA (8) [id number] kidney injury Code(s): N17.9 - ACUTE KIDNEY FAILURE, UNSPECIFIED N18.9 - CHRONIC KIDNEY DISEASE, UNSPECIFIED (9) Anemia Code(s): D64.9 - ANEMIA, UNSPECIFIED Qualifiers: Anemia type: unspecified type Qualified Code(s): D64.9 - Anemia, unspecified (10) COPD (chronic obstructive pulmonary disease) Code(s): J44.9 - CHRONIC OBSTRUCTIVE PULMONARY DISEASE, UNSPECIFIED Qualifiers : COPD type: chronic bronchitis (11) Pneumonia Code(s): J18.9 - PNEUMONIA, UNSPECIFIED ORGANISM Qualifiers: Pneumonia type: due to unspecified organism Laterality: right Lung location: lower lobe of lung Qualified Code(s): J18.1 - Lobar pneumonia, unspecified organism Assessment/Plan 1. Acute on chronic LV diastolic heart failure 2. COPD with chronic hypoxic respiratory failure - improving 3. Insulin-dependent type 2 diabetes mellitus 4. Hypercholesterolemia 5. Anemia 6. CKD 7. HTN PLAN: 1. Lasix PO with monitoring renal function and electrolytes 2. Continue ASA 81 mg QD, Lopid 600 mg BID, Cardizem CD 120 mg QD, Cozaar 25 mg QD and Hytrin 5 mg QHS 3. Bronchodilator, O2 to keep SpO2 >90%, IV steroid, Daliresp and compression therapy 4. DVT and GI prophylaxix 5. Eventually pulmonary rehab at the discretion of Pulmonary service Further plans are to follow Nicholas Silver MD
--- NOTE | 2016-11-26 15:33 | PN ---
Progress Note, Physician History of Present Illness: Pt seen and examined at bedside. He is awake and alert. He feels that his breathing is improving. - Current Medication List Current Medications: Active Medications Acetaminophen (Tylenol -) 650 mg PO Q6H PRN PRN Reason: FEVER OR PAIN Albuterol Sulfate (Ventolin 0.083% Nebulizer Soln -) 1 amp NEB Q4H PRN PRN Reason: SHORT OF BREATH/WHEEZING Last Admin: 11/25/16 22:09 Dose: 1 amp Allopurinol (Zyloprim -) 100 mg PO DAILY [facility] Last Admin: 11/26/16 09:57 Dose: 100 mg Aspirin (Asa -) 81 mg PO Q2D@1000 [facility] Last Admin: 11/26/16 09:56 Dose: 81 mg Budesonide/Formoterol Fumarate (Symbicort 160/4.5mcg -) 2 puff IH BID [facility] Last Admin: 11/26/16 10:05 Dose: 2 puff Diltiazem HCl (Cardizem Cd -) 120 mg PO DAILY [facility] Last Admin: 11/26/16 09:57 Dose: 120 mg Docusate Sodium (Colace -) 100 mg PO BID [facility] Last Admin: 11/26/16 09:56 Dose: 100 mg Fentanyl (Duragesic 75mcg Patch -) 1 patch TD Q72H [facility] Last Admin: 11/25/16 17:39 Dose: 1 patch Ferrous Sulfate (Feosol -) 325 mg PO BID [facility] Last Admin: 11/26/16 09:57 Dose: 325 mg Furosemide (Lasix -) 40 mg PO BID@0600,1400 [facility] Last Admin: 11/26/16 13:42 Dose: 40 mg Gemfibrozil (Lopid -) 600 mg PO BIDAC [facility] Last Admin: 11/26/16 06:02 Dose: 600 mg Heparin Sodium (Porcine) (Heparin -) 5,000 unit SQ BID [facility] Last Admin: 11/26/16 09:57 Dose: 5,000 unit Hydromorphone HCl (Dilaudid Injection -) 2 mg IVPB TID [facility] Last Admin: 11/26/16 13:42 Dose: 2 mg Insulin Aspart (Novolog Vial Sliding Scale -) 1 vial SQ ACHS [facility] PRN Reason: Protocol Last Admin: 11/26/16 12:07 Dose: Not Given Insulin Aspart (Novolog Mix 70/30 Vial) 45 units SQ BIDAC [facility] Last Admin: 11/26/16 06:07 Dose: 45 units Lactulose (Cephulac (Oral Use)) 10 gm PO DAILY [facility] Last Admin: 11/26/16 09:59 Dose: 10 gm Losartan Potassium (Cozaar -) 25 mg PO DAILY [facility] Last Admin: 11/26/16 09:56 Dose: 25 mg Methylnaltrexone Neptune (Relistor -) 12 mg SQ DAILY [facility] Last Admin: 11/26/16 09:58 Dose: 12 mg Methylprednisolone Sodium Succinate (Solu-Medrol -) 40 mg IVPB Q8H-IV [facility] Metoclopramide HCl (Reglan -) 5 mg PO TIDAC [facility] Last Admin: 11/26/16 12:08 Dose: 5 mg Miscellaneous (Duragesic Patch Waste) 1 each TD PRN PRN Ranitidine HCl (Zantac -) 300 mg PO DAILY [facility] Last Admin: 11/26/16 09:56 Dose: 300 mg Roflumilast (Daliresp -) 500 mcg PO DAILY [facility] Last Admin: 11/26/16 09:57 Dose: 500 mcg Senna (Senna -) 2 tab PO HS PRN PRN Reason: CONSTIPATION Last Admin: 11/22/16 22:03 Dose: 2 tab Sitagliptin Phosphate (Januvia -) 25 mg PO DAILY@0700 [facility] Last Admin: 11/26/16 10:08 Dose: Not Given Sodium Chloride ([place] Nasal [place] -) 2 spray NS BID PRN PRN Reason: NASAL CONGESTION Last Admin: 11/23/16 10:40 Dose: 2 spray Tamsulosin HCl (Flomax -) 0.4 mg PO BID [facility] Last Admin: 11/26/16 09:56 Dose: 0.4 mg Terazosin HCl (Hytrin -) 5 mg PO HS [facility] Last Admin: 11/25/16 22:03 Dose: 5 mg Tiotropium [place] (Spiriva -) 1 puff IH DAILY [facility] - Objective Vital Signs: Vital Signs Temperature 98.2 F 11/26/16 15:02 Pulse Rate 90 11/26/16 15:02 Respiratory Rate 20 11/26/16 15:02 Blood Pressure 132/79 11/26/16 15:02 O2 Sat by Pulse Oximetry (%) 94 L 11/26/16 11:40 Constitutional: Yes: Calm HENT: Yes: Atraumatic Neck: Yes: Supple Cardiovascular: Yes: S1, S2 Respiratory: Yes: On BiPap Gastrointestinal: Yes: Soft, Abdomen, Obese Genitourinary: Yes: WNL Musculoskeletal: Yes: WNL Edema: Yes Edema: LLE: 1+, RLE: 1+ Neurological: Yes: Oriented Psychiatric: Yes: Oriented Labs: CBC, BMP 11/26/16 06:30 11/26/16 06:30 INR, PTT INR 0.96 (0.82-1.09) 11/22/16 17:00 Problem List - Problems (1) Cough Code(s): R05 - COUGH (2) Diabetes mellitus, insulin dependent (IDDM), uncontrolled Code(s): E10.65 - TYPE 1 DIABETES MELLITUS WITH HYPERGLYCEMIA Qualifiers: Diabetes mellitus complication status: without complication Qualified Code(s): E10.9 - Type 1 diabetes mellitus without complications (3) HTN (hypertension) Code(s): I10 - ESSENTIAL (PRIMARY) HYPERTENSION Qualifiers: Hypertension type: essential hypertension Qualified Code(s): I10 - Essential (primary) hypertension (4) Shortness of breath Code(s): R06.02 - SHORTNESS OF BREATH (5) CHF (congestive heart failure) Code(s): I50.9 - HEART FAILURE, UNSPECIFIED Qualifiers: Congestive heart failure type: diastolic (6) CKD (chronic kidney disease) Code(s): N18.9 - CHRONIC KIDNEY DISEASE, UNSPECIFIED Qualifiers: Chronic kidney disease stage: unspecified stage Qualified Code(s): N18.9 - Chronic kidney disease, unspecified Assessment/Plan Current Medications Generic Name Dose Route Start Last Admin Trade Name Freq PRN Reason Stop Dose Admin Acetaminophen 650 mg 11/22/16 18:22 Tylenol - PO Q6H PRN FEVER OR PAIN Albuterol Sulfate 1 amp 11/23/16 13:35 11/25/16 22:09 Ventolin 0.083% Nebulizer Soln - NEB 1 amp Q4H PRN Administration SHORT OF BREATH/WHEEZING Allopurinol 100 mg 11/23/16 10:00 11/26/16 09:57 Zyloprim - PO 100 mg DAILY [facility] Administration Aspirin 81 mg 11/24/16 10:00 11/26/16 09:56 Asa - PO 81 mg Q2D@1000 [facility] Administration Budesonide/Formoterol Fumarate 2 puff 11/22/16 22:00 11/26/16 10:05 Symbicort 160/4.5mcg - IH 2 puff BID [facility] Administration Diltiazem HCl 120 mg 11/23/16 10:00 11/26/16 09:57 Cardizem Cd - PO 120 mg DAILY [facility] Administration Docusate Sodium 100 mg 11/22/16 22:00 11/26/16 09:56 Colace - PO 100 mg BID [facility] Administration Fentanyl 1 patch 11/22/16 18:30 11/25/16 17:39 Duragesic 75mcg Patch - TD 1 patch Q72H [facility] Administration Ferrous Sulfate 325 mg 11/22/16 22:00 11/26/16 09:57 Feosol - PO 325 mg BID [facility] Administration Furosemide 40 mg 11/25/16 14:00 11/26/16 13:42 Lasix - PO 40 mg BID@0600,1400 [facility] Administration Gemfibrozil 600 mg 11/23/16 07:00 11/26/16 06:02 Lopid - PO 600 mg BIDAC [facility] Administration Heparin Sodium (Porcine) 5,000 unit 11/22/16 22:00 11/26/16 09:57 Heparin - SQ 5,000 unit BID [facility] Administration Hydromorphone HCl 2 mg 11/24/16 18:30 11/26/16 13:42 Dilaudid Injection - IVPB 2 mg TID [facility] Administration Insulin Aspart 1 vial 11/23/16 20:53 11/26/16 12:07 Novolog Vial Sliding Scale - SQ Not Given [facility] Protocol Insulin Aspart 45 units 11/25/16 10:30 11/26/16 06:07 Novolog Mix 70/30 Vial SQ 45 units BIDAC [facility] Administration Lactulose 10 gm 11/23/16 10:00 11/26/16 09:59 Cephulac (Oral Use) PO 10 gm DAILY [facility] Administration Losartan Potassium 25 mg 11/23/16 10:00 11/26/16 09:56 Cozaar - PO 25 mg DAILY [facility] Administration Methylnaltrexone Neptune 12 mg 11/24/16 10:00 11/26/16 09:58 Relistor - SQ 12 mg DAILY [facility] Administration Methylprednisolone Sodium Succinate 40 mg 11/26/16 18:00 Solu-Medrol - IVPB Q8H-IV [facility] Metoclopramide HCl 5 mg 11/23/16 07:00 11/26/16 12:08 Reglan - PO 5 mg TIDAC [facility] Administration Miscellaneous 1 each 11/22/16 18:58 Duragesic Patch Waste TD PRN PRN Ranitidine HCl 300 mg 11/23/16 10:00 11/26/16 09:56 Zantac - PO 300 mg DAILY [facility] Administration Roflumilast 500 mcg 11/23/16 10:00 11/26/16 09:57 Daliresp - PO 500 mcg DAILY [facility] Administration Senna 2 tab 11/22/16 18:22 11/22/16 22:03 Senna - PO 2 tab HS PRN Administration CONSTIPATION Sitagliptin Phosphate 25 mg 11/23/16 07:00 11/26/16 10:08 Januvia - PO Not Given DAILY@0700 [facility] Sodium Chloride 2 spray 11/22/16 18:22 11/23/16 10:40 [place] Nasal [place] - NS 2 spray BID PRN Administration NASAL CONGESTION Tamsulosin HCl 0.4 mg 11/22/16 22:00 11/26/16 09:56 Flomax - PO 0.4 mg BID [facility] Administration Terazosin HCl 5 mg 11/22/16 22:00 11/25/16 22:03 Hytrin - PO 5 mg HS [facility] Administration Tiotropium Neptune 1 puff 11/26/16 10:00 Spiriva - IH DAILY [facility] Impression 1. CKD 2. DM 3. HTN 4. CHF 5. COPD 6. fluid overload 7. BPH 8. insomnia 9. narcotic dependence Plan - cont furosemide - cont arb - steroids with taper - steroids can contribute to elevated BUN - cont bipap as needed - will follow Dr Nathan
[2016-11-26] MEDS ORDERED: methylPREDNISolone NA SUCC 40 MG/1 ML VIAL IVPB SCH (18:00)
[2016-11-26] MEDS ORDERED: ACETAMINOPHEN 325 MG TABLET (FP) PO PRN (21:11)
[2016-11-26] MEDS ORDERED: ALBUTEROL SO4 2.5/IPRATROPIUM 0.5 INH SOL 3 ML VIAL.NEB. NEB ONE (21:15)
[2016-11-26] MEDS ORDERED: ACETYLCYSTEINE 20% 200MG/ML 30 ML VIAL *FOR ORAL / INH USE ONLY NEB ONE (21:15)
[2016-11-26] MEDS ORDERED: SENNOSIDES 8.6MG TABLET (FP) PO PRN (21:16)
[2016-11-26] MEDS ORDERED: SODIUM CHLORIDE NASAL SPRAY 44 ML BOTTLE NS PRN (21:17)
[2016-11-26] MEDS: TERAZOSIN HCL 5 MG CAPSULE PO SCH (21:31)
[2016-11-26] MEDS ORDERED: busPIRone HCL 5 MG TABLET PO SCH (22:00)
[2016-11-26] MEDS ORDERED: ACETYLCYSTEINE 20% 200MG/ML 4 ML VIAL *FOR ORAL / INH USE ONLY ONE (22:20)
[2016-11-26] MEDS: fentaNYL 75mcg/hr PATCH.TD72 TD SCH (23:16)
[2016-11-26] MEDS ORDERED: diphenhydrAMINE HCL 25 MG CAPSULE (FP) PO PRN (23:24)
[2016-11-27] MEDS: methylPREDNISolone NA SUCC 40 MG/1 ML VIAL IVPB SCH ×4 (01:09→21:22)
[2016-11-27] MEDS ORDERED: INSULIN (NOVOLOG MIX 70/30) 100 UNITS/ML MDV SQ ONE ×4 (06:00→17:57)
[2016-11-27] MEDS ORDERED: FUROSEMIDE 40 MG/4 ML INJECTABLE VIAL ONE (06:01)
[2016-11-27] MEDS: FUROSEMIDE 40 MG TABLET (FP) PO SCH ×3 (06:02→15:44)
[2016-11-27] MEDS: HYDROmorphone HCL CARPU-JECT 2 MG/1 ML DISP.SYRIN IVPB SCH ×3 (06:03→22:06)
[2016-11-27] MEDS: sitaGLIPtin PHOSPHATE 25 MG TABLET (FP) PO SCH (06:09)
[2016-11-27] MEDS: METOCLOPRAMIDE HCL 10 MG TABLET (FP) PO SCH ×5 (06:09→15:36)
[2016-11-27] MEDS: GEMFIBROZIL 600 MG TABLET (FP) PO SCH ×2 (06:10→15:38)
[2016-11-27] MEDS: INSULIN (NOVOLOG MIX 70/30) 100 UNITS/ML MDV SQ SCH ×3 (06:11→17:38)
[2016-11-27] MEDS: INSULIN SLIDING SCALE (NOVOLOG) 1 VIAL SQ SCH ×4 (06:12→21:35)
[2016-11-27] MEDS ORDERED: INSULIN (NOVOLOG MIX 70/30) 100 UNITS/ML MDV SQ SCH (07:00)
[2016-11-27] MEDS: ALBUTEROL SO4 0.083% IH SOL 2.5 MG/3 ML VIAL.NEB. NEB PRN ×4 (07:01→21:24)
[2016-11-27] MEDS ORDERED: TIOTROPIUM BROMIDE 18 MCG/INH (DEVICE W/ 5 CAPSULES) IH SCH (10:00)
[2016-11-27] MEDS ORDERED: FUROSEMIDE 40 MG TABLET (FP) PO SCH (10:00)
--- NOTE | 2016-11-27 10:15 | PN ---
Progress Note (short form) - Note Progress Note: PULMONARY States breathing continues to improve. +cough and wheezing. No fevers or chills. Last Vital Signs Temp Pulse Resp BP Pulse Ox 98.4 F 89 18 159/80 95 11/27/16 09:00 11/27/16 09:00 11/27/16 09:00 11/27/16 09:00 11/26/16 21:00 Gen: NAD, ambulating Heart: RRR Lung: scattered bilateral wheezes, rhonchi Abd: soft, nontender Ext: + edema CBC, BMP 11/26/16 06:30 11/26/16 06:30 Active Medications Acetaminophen (Tylenol -) 650 mg PO Q6H PRN PRN Reason: FEVER OR PAIN Albuterol Sulfate (Ventolin 0.083% Nebulizer Soln -) 1 amp NEB Q4H PRN PRN Reason: SHORT OF BREATH/WHEEZING Last Admin: 11/27/16 07:01 Dose: 1 amp Allopurinol (Zyloprim -) 100 mg PO DAILY [facility] Aspirin (Asa -) 81 mg PO Q2D@1000 [facility] Budesonide/Formoterol Fumarate (Symbicort 160/4.5mcg -) 2 puff IH BID [facility] Last Admin: 11/26/16 21:58 Dose: Not Given Diltiazem HCl (Cardizem Cd -) 120 mg PO DAILY [facility] Diphenhydramine HCl (Benadryl -) 25 mg PO Q4H PRN PRN Reason: ITCHING Last Admin: 11/26/16 23:37 Dose: 25 mg Docusate Sodium (Colace -) 100 mg PO BID [facility] Last Admin: 11/26/16 21:31 Dose: 100 mg Fentanyl (Duragesic 75mcg Patch -) 1 patch TD Q72H [facility] Last Admin: 11/26/16 23:16 Dose: Not Given Ferrous Sulfate (Feosol -) 325 mg PO BID [facility] Last Admin: 11/26/16 21:31 Dose: 325 mg Furosemide (Lasix -) 40 mg PO BID@0600,1400 [facility] Last Admin: 11/27/16 06:02 Dose: 40 mg Gemfibrozil (Lopid -) 600 mg PO BIDAC [facility] Last Admin: 11/27/16 06:10 Dose: 600 mg Heparin Sodium (Porcine) (Heparin -) 5,000 unit SQ BID [facility] Last Admin: 11/26/16 21:31 Dose: Not Given Hydromorphone HCl (Dilaudid Injection -) 2 mg IVPB TID [facility] Last Admin: 11/27/16 06:03 Dose: 2 mg Insulin Aspart (Novolog Vial Sliding Scale -) 1 vial SQ ACHS [facility] PRN Reason: Protocol Last Admin: 11/27/16 06:12 Dose: 14 units Insulin Aspart (Novolog Mix 70/30 Vial) 45 units SQ BIDAC [facility] Last Admin: 11/27/16 06:11 Dose: 45 units Lactulose (Cephulac (Oral Use)) 10 gm PO DAILY [facility] Losartan Potassium (Cozaar -) 25 mg PO DAILY [facility] Methylnaltrexone [place] (Relistor -) 12 mg SQ DAILY [facility] Methylprednisolone Sodium Succinate (Solu-Medrol -) 40 mg IVPB Q8H-IV [facility] Last Admin: 11/27/16 01:09 Dose: 40 mg Metoclopramide HCl (Reglan -) 5 mg PO TIDAC [facility] Last Admin: 11/27/16 06:09 Dose: 5 mg Miscellaneous (Duragesic Patch Waste) 1 each TD PRN PRN Ranitidine HCl (Zantac -) 300 mg PO DAILY [facility] Roflumilast (Daliresp -) 500 mcg PO DAILY [facility] Senna (Senna -) 2 tab PO HS PRN PRN Reason: CONSTIPATION Sitagliptin Phosphate (Januvia -) 25 mg PO DAILY@0700 [facility] Last Admin: 11/27/16 06:09 Dose: 25 mg Sodium Chloride ([place] Nasal [place] -) 2 spray NS BID PRN PRN Reason: NASAL CONGESTION Tamsulosin HCl (Flomax -) 0.4 mg PO BID [facility] Last Admin: 11/26/16 21:31 Dose: 0.4 mg Terazosin HCl (Hytrin -) 5 mg PO HS [facility] Last Admin: 11/26/16 21:31 Dose: 5 mg Tiotropium [place] (Spiriva -) 1 puff IH DAILY [facility] A/P Acute COPD Exacerbation Chronic Hypoxic Respiratory Failure CHF HTN DM CKD - continue medrol taper, can change to q12h dosing - inhaled bronchodilators - O2 to keep SpO2 >90% - glucose control while on systemic steroids - BiPAP at night and PRN during day - lasix - monitor urine output, creatinine - DVT prophylaxis
[2016-11-27] MEDS: RANITIDINE HCL 150 MG TABLET (FP) PO SCH (10:16)
[2016-11-27] MEDS: ALLOPURINOL 100 MG TABLET (FP) PO SCH (10:16)
[2016-11-27] MEDS: TAMSULOSIN HCL 0.4 MG CAP.ER.24H (FP) PO SCH ×2 (10:17→21:22)
[2016-11-27] MEDS: LACTULOSE 20 GM/30 ML UDC (FOR ORAL USE ONLY) PO SCH (10:17)
[2016-11-27] MEDS: LOSARTAN POTASSIUM 25 MG TABLET PO SCH (10:29)
[2016-11-27] MEDS: BUDESONIDE/FORMETEROL FUMARATE 160/4.5 mcg INHALER IH SCH ×3 (10:33→22:31)
[2016-11-27] MEDS ORDERED: PT OWN MED DRAWER 7, Y5N ONE ×2 (10:38→21:17)
[2016-11-27] MEDS ORDERED: HEPARIN NA (PORCINE) 5,000 UNITS/ML 1ML VIAL ONE (10:39)
--- NOTE | 2016-11-27 10:40 | PN ---
Progress Note, Physician Chief Complaint: patient slept last night with the bipap patient is awake ambulating hallways breathing better wants to go home still has cough but getting better - Current Medication List Current Medications: Active Medications Acetaminophen (Tylenol -) 650 mg PO Q6H PRN PRN Reason: FEVER OR PAIN Albuterol Sulfate (Ventolin 0.083% Nebulizer Soln -) 1 amp NEB Q4H PRN PRN Reason: SHORT OF BREATH/WHEEZING Last Admin: 11/27/16 07:01 Dose: 1 amp Allopurinol (Zyloprim -) 100 mg PO DAILY [facility] Last Admin: 11/27/16 10:16 Dose: 100 mg Aspirin (Asa -) 81 mg PO Q2D@1000 [facility] Budesonide/Formoterol Fumarate (Symbicort 160/4.5mcg -) 2 puff IH BID [facility] Last Admin: 11/27/16 10:33 Dose: 2 puff Diltiazem HCl (Cardizem Cd -) 120 mg PO DAILY [facility] Last Admin: 11/27/16 10:30 Dose: 120 mg Diphenhydramine HCl (Benadryl -) 25 mg PO Q4H PRN PRN Reason: ITCHING Last Admin: 11/26/16 23:37 Dose: 25 mg Docusate Sodium (Colace -) 100 mg PO BID [facility] Last Admin: 11/26/16 21:31 Dose: 100 mg Fentanyl (Duragesic 75mcg Patch -) 1 patch TD Q72H [facility] Last Admin: 11/26/16 23:16 Dose: Not Given Ferrous Sulfate (Feosol -) 325 mg PO BID [facility] Last Admin: 11/26/16 21:31 Dose: 325 mg Furosemide (Lasix -) 40 mg PO BID@0600,1400 [facility] Last Admin: 11/27/16 06:02 Dose: 40 mg Gemfibrozil (Lopid -) 600 mg PO BIDAC [facility] Last Admin: 11/27/16 06:10 Dose: 600 mg Heparin Sodium (Porcine) (Heparin -) 5,000 unit SQ BID [facility] Last Admin: 11/26/16 21:31 Dose: Not Given Hydromorphone HCl (Dilaudid Injection -) 2 mg IVPB TID [facility] Last Admin: 11/27/16 06:03 Dose: 2 mg Insulin Aspart (Novolog Vial Sliding Scale -) 1 vial SQ ACHS [facility] PRN Reason: Protocol Last Admin: 11/27/16 06:12 Dose: 14 units Insulin Aspart (Novolog Mix 70/30 Vial) 45 units SQ BIDAC [facility] Last Admin: 11/27/16 06:11 Dose: 45 units Lactulose (Cephulac (Oral Use)) 10 gm PO DAILY [facility] Last Admin: 11/27/16 10:17 Dose: 10 gm Losartan Potassium (Cozaar -) 25 mg PO DAILY [facility] Last Admin: 11/27/16 10:29 Dose: 25 mg Methylnaltrexone [place] (Relistor -) 12 mg SQ DAILY [facility] Methylprednisolone Sodium Succinate (Solu-Medrol -) 40 mg IVPB BID [facility] Metoclopramide HCl (Reglan -) 5 mg PO TIDAC [facility] Last Admin: 11/27/16 10:17 Dose: Not Given Miscellaneous (Duragesic Patch Waste) 1 each TD PRN PRN Ranitidine HCl (Zantac -) 300 mg PO DAILY [facility] Last Admin: 11/27/16 10:16 Dose: 300 mg Roflumilast (Daliresp -) 500 mcg PO DAILY [facility] Senna (Senna -) 2 tab PO HS PRN PRN Reason: CONSTIPATION Sitagliptin Phosphate (Januvia -) 25 mg PO DAILY@0700 [facility] Last Admin: 11/27/16 06:09 Dose: 25 mg Sodium Chloride ([place] Nasal [place] -) 2 spray NS BID PRN PRN Reason: NASAL CONGESTION Tamsulosin HCl (Flomax -) 0.4 mg PO BID [facility] Last Admin: 11/27/16 10:17 Dose: 0.4 mg Terazosin HCl (Hytrin -) 5 mg PO HS [facility] Last Admin: 11/26/16 21:31 Dose: 5 mg Tiotropium [place] (Spiriva -) 1 puff IH DAILY [facility] Last Admin: 11/27/16 10:32 Dose: 1 puff - Objective Vital Signs: Vital Signs Temperature 98.4 F 11/27/16 09:00 Pulse Rate 89 11/27/16 09:00 Respiratory Rate 18 11/27/16 09:00 Blood Pressure 159/80 11/27/16 09:00 O2 Sat by Pulse Oximetry (%) 95 11/26/16 21:00 Constitutional: Yes: Calm Neck: Yes: Trachea Midline Cardiovascular: Yes: Regular Rate and Rhythm, S1, S2 Respiratory: Yes: Rhonchi Gastrointestinal: Yes: Normal Bowel Sounds, Soft Edema: Yes Neurological: Yes: Alert, Oriented Labs: CBC, BMP 11/26/16 06:30 11/26/16 06:30 INR, PTT INR 0.96 (0.82-1.09) 11/22/16 17:00 Problem List - Problems (1) COPD (chronic obstructive pulmonary disease) Assessment/Plan: iv steroids taper to bid bipapa at night daliresp symbicrot and spririva Code(s): J44.9 - CHRONIC OBSTRUCTIVE PULMONARY DISEASE, UNSPECIFIED Qualifiers : COPD type: chronic bronchitis (2) Acute on chronic diastolic (congestive) heart failure Assessment/Plan: po lasix continue other cardiac meds will monitor renal fucntion Code(s): I50.33 - ACUTE ON CHRONIC DIASTOLIC (CONGESTIVE) HEART FAILURE (3) BPH (benign prostatic hyperplasia) Assessment/Plan: flomax Code(s): N40.0 - BENIGN PROSTATIC HYPERPLASIA WITHOUT LOWER URINRY TRACT SYMP (4) Constipation due to opioid therapy Assessment/Plan: change to relistor Code(s): K59.09 - OTHER CONSTIPATION T40.2X5A - ADVERSE EFFECT OF OTHER OPIOIDS, INITIAL ENCOUNTER (5) Diabetes mellitus Assessment/Plan: bgm noted will improve as steroids are tapered Code(s): E11.9 - TYPE 2 DIABETES MELLITUS WITHOUT COMPLICATIONS Qualifiers: Diabetes mellitus type: type 2 Diabetes mellitus complication status: without complication Diabetes mellitus mcfp insulin use: with beet flumer use Qualified Code(s): E11.9 - Type 2 diabetes mellitus without complications (6) Hyperlipidemia LDL goal < 100 Assessment/Plan: lopid Code(s): E78.5 - HYPERLIPIDEMIA, UNSPECIFIED (7) Chronic back pain greater than 3 months duration Assessment/Plan: fentanyl patch Code(s): M54.9 - DORSALGIA, UNSPECIFIED G89.29 - OTHER CHRONIC PAIN
[2016-11-27] MEDS: FERROUS SO4 325 MG TABLET (FP) PO SCH ×2 (10:41→21:22)
[2016-11-27] MEDS: HEPARIN NA (PORCINE) 5,000 UNITS/ML 1ML VIAL SQ SCH ×2 (10:41→21:21)
[2016-11-27] MEDS: ROFLUMILAST 500 MCG TABLET PO SCH (10:42)
[2016-11-27] MEDS: DOCUSATE SODIUM 100 MG CAPSULE (FP) PO SCH ×2 (10:42→21:22)
[2016-11-27] MEDS: Methylnaltrexone Bromide 12 MG/0.6 ML KIT SQ SCH (10:43)
--- NOTE | 2016-11-27 11:38 | PN ---
Progress Note, Physician Chief Complaint: Events noted Feels better overall, but still with intermittent shortness of breath History of Present Illness: Patient was seen and examined. Awake and alert. Chart was reviewed Denies chest pain or palpitations. Respiratory status improving Medications are being titrated - Current Medication List Current Medications: Active Medications Acetaminophen (Tylenol -) 650 mg PO Q6H PRN PRN Reason: FEVER OR PAIN Albuterol Sulfate (Ventolin 0.083% Nebulizer Soln -) 1 amp NEB Q4H PRN PRN Reason: SHORT OF BREATH/WHEEZING Last Admin: 11/27/16 07:01 Dose: 1 amp Allopurinol (Zyloprim -) 100 mg PO DAILY [facility] Last Admin: 11/27/16 10:16 Dose: 100 mg Aspirin (Asa -) 81 mg PO Q2D@1000 [facility] Budesonide/Formoterol Fumarate (Symbicort 160/4.5mcg -) 2 puff IH BID [facility] Last Admin: 11/27/16 10:33 Dose: 2 puff Diltiazem HCl (Cardizem Cd -) 120 mg PO DAILY [facility] Last Admin: 11/27/16 10:30 Dose: 120 mg Diphenhydramine HCl (Benadryl -) 25 mg PO Q4H PRN PRN Reason: ITCHING Last Admin: 11/26/16 23:37 Dose: 25 mg Docusate Sodium (Colace -) 100 mg PO BID [facility] Last Admin: 11/27/16 10:42 Dose: 100 mg Fentanyl (Duragesic 75mcg Patch -) 1 patch TD Q72H [facility] Last Admin: 11/26/16 23:16 Dose: Not Given Ferrous Sulfate (Feosol -) 325 mg PO BID [facility] Last Admin: 11/27/16 10:41 Dose: 325 mg Furosemide (Lasix -) 40 mg PO BID@0600,1400 [facility] Last Admin: 11/27/16 06:02 Dose: 40 mg Gemfibrozil (Lopid -) 600 mg PO BIDAC [facility] Last Admin: 11/27/16 06:10 Dose: 600 mg Heparin Sodium (Porcine) (Heparin -) 5,000 unit SQ BID [facility] Last Admin: 11/27/16 10:41 Dose: 5,000 unit Hydromorphone HCl (Dilaudid Injection -) 2 mg IVPB TID [facility] Last Admin: 11/27/16 06:03 Dose: 2 mg Insulin Aspart (Novolog Vial Sliding Scale -) 1 vial SQ ACHS [facility] PRN Reason: Protocol Last Admin: 11/27/16 06:12 Dose: 14 units Insulin Aspart (Novolog Mix 70/30 Vial) 45 units SQ BIDAC [facility] Last Admin: 11/27/16 06:11 Dose: 45 units Lactulose (Cephulac (Oral Use)) 10 gm PO DAILY [facility] Last Admin: 11/27/16 10:17 Dose: 10 gm Losartan Potassium (Cozaar -) 25 mg PO DAILY [facility] Last Admin: 11/27/16 10:29 Dose: 25 mg Methylnaltrexone [place] (Relistor -) 12 mg SQ DAILY [facility] Last Admin: 11/27/16 10:43 Dose: 12 mg Methylprednisolone Sodium Succinate (Solu-Medrol -) 40 mg IVPB BID [facility] Last Admin: 11/27/16 10:44 Dose: 40 mg Metoclopramide HCl (Reglan -) 5 mg PO TIDAC [facility] Last Admin: 11/27/16 10:17 Dose: Not Given Miscellaneous (Duragesic Patch Waste) 1 each TD PRN PRN Ranitidine HCl (Zantac -) 300 mg PO DAILY [facility] Last Admin: 11/27/16 10:16 Dose: 300 mg Roflumilast (Daliresp -) 500 mcg PO DAILY [facility] Last Admin: 11/27/16 10:42 Dose: 500 mcg Senna (Senna -) 2 tab PO HS PRN PRN Reason: CONSTIPATION Sitagliptin Phosphate (Januvia -) 25 mg PO DAILY@0700 [facility] Last Admin: 11/27/16 06:09 Dose: 25 mg Sodium Chloride ([place] Nasal [place] -) 2 spray NS BID PRN PRN Reason: NASAL CONGESTION Tamsulosin HCl (Flomax -) 0.4 mg PO BID [facility] Last Admin: 11/27/16 10:17 Dose: 0.4 mg Terazosin HCl (Hytrin -) 5 mg PO HS [facility] Last Admin: 11/26/16 21:31 Dose: 5 mg Tiotropium [place] (Spiriva -) 1 puff IH DAILY [facility] Last Admin: 11/27/16 10:32 Dose: 1 puff - Objective Vital Signs: Vital Signs Temperature 98.4 F 11/27/16 09:00 Pulse Rate 89 11/27/16 09:00 Respiratory Rate 18 11/27/16 09:00 Blood Pressure 159/80 11/27/16 09:00 O2 Sat by Pulse Oximetry (%) 95 11/26/16 21:00 Neck: Yes: Supple Cardiovascular: Yes: Regular Rate and Rhythm, S1, S2 Respiratory: Yes: Diminished, Wheezes Gastrointestinal: Yes: Normal Bowel Sounds, Soft, Abdomen, Obese. No: Tenderness Edema: Yes Edema: LLE: 1+, RLE: 1+ Labs: CBC, BMP 11/26/16 06:30 11/26/16 06:30 Problem List - Problems (1) Cough Code(s): R05 - COUGH (2) Diabetes mellitus, insulin dependent (IDDM), uncontrolled Code(s): E10.65 - TYPE 1 DIABETES MELLITUS WITH HYPERGLYCEMIA Qualifiers: Diabetes mellitus complication status: without complication Qualified Code(s): E10.9 - Type 1 diabetes mellitus without complications (3) HTN (hypertension) Code(s): I10 - ESSENTIAL (PRIMARY) HYPERTENSION Qualifiers: Hypertension type: essential hypertension Qualified Code(s): I10 - Essential (primary) hypertension (4) Hyperlipidemia LDL goal < 100 Code(s): E78.5 - HYPERLIPIDEMIA, UNSPECIFIED (5) Shortness of breath Code(s): R06.02 - SHORTNESS OF BREATH (6) Acute on chronic diastolic (congestive) heart failure Code(s): I50.33 - ACUTE ON CHRONIC DIASTOLIC (CONGESTIVE) HEART FAILURE (7) Acute on chronic respiratory failure with hypoxia and hypercapnia Code(s): J96.21 - ACUTE AND CHRONIC RESPIRATORY FAILURE WITH HYPOXIA J96.22 - ACUTE AND CHRONIC RESPIRATORY FAILURE WITH HYPERCAPNIA (8) Wrved-ya-fxyocra kidney injury Code(s): N17.9 - ACUTE KIDNEY FAILURE, UNSPECIFIED N18.9 - CHRONIC KIDNEY DISEASE, UNSPECIFIED (9) Anemia Code(s): D64.9 - ANEMIA, UNSPECIFIED Qualifiers: Anemia type: unspecified type Qualified Code(s): D64.9 - Anemia, unspecified (10) COPD (chronic obstructive pulmonary disease) Code(s): J44.9 - CHRONIC OBSTRUCTIVE PULMONARY DISEASE, UNSPECIFIED Qualifiers : COPD type: chronic bronchitis (11) Pneumonia Code(s): J18.9 - PNEUMONIA, UNSPECIFIED ORGANISM Qualifiers: Pneumonia type: due to unspecified organism Laterality: right Lung location: lower lobe of lung Qualified Code(s): J18.1 - Lobar pneumonia, unspecified organism Assessment/Plan 1. Acute on chronic LV diastolic heart failure 2. COPD with chronic hypoxic respiratory failure - improving 3. Insulin-dependent type 2 diabetes mellitus 4. Hypercholesterolemia 5. Anemia 6. CKD 7. HTN PLAN: 1. Lasix PO with monitoring renal function and electrolytes - may use IV as needed 2. Continue ASA 81 mg QD, Lopid 600 mg BID, Cardizem CD 120 mg QD, Cozaar 25 mg QD and Hytrin 5 mg QHS 3. Bronchodilator, O2 to keep SpO2 >90%, IV steroid, Daliresp and compression therapy at the discretion of pulmonary service 4. DVT and GI prophylaxix 5. Eventually pulmonary rehab at the discretion of Pulmonary service Further plans are to follow Nicholas Silver MD
[2016-11-27] MEDS ORDERED: ALBUTEROL SO4 0.083% IH SOL 2.5 MG/3 ML VIAL.NEB. NEB ONE ×2 (13:44→21:23)
--- NOTE | 2016-11-27 15:09 | PN ---
Progress Note, Physician History of Present Illness: Pt seen and examined at bedside. He is awake and alert. He feels that his breathing is improved today. - Current Medication List Current Medications: Active Medications Acetaminophen (Tylenol -) 650 mg PO Q6H PRN PRN Reason: FEVER OR PAIN Albuterol Sulfate (Ventolin 0.083% Nebulizer Soln -) 1 amp NEB Q4H PRN PRN Reason: SHORT OF BREATH/WHEEZING Last Admin: 11/27/16 13:48 Dose: 1 amp Allopurinol (Zyloprim -) 100 mg PO DAILY [facility]S [facility] Last Admin: 11/27/16 10:16 Dose: 100 mg Aspirin (Asa -) 81 mg PO Q2D@1000 [facility] Budesonide/Formoterol Fumarate (Symbicort 160/4.5mcg -) 2 puff IH BID [facility] Last Admin: 11/27/16 10:33 Dose: 2 puff Diltiazem HCl (Cardizem Cd -) 120 mg PO DAILY [facility]S [facility] Last Admin: 11/27/16 10:30 Dose: 120 mg Diphenhydramine HCl (Benadryl -) 25 mg PO Q4H PRN PRN Reason: ITCHING Last Admin: 11/26/16 23:37 Dose: 25 mg Docusate Sodium (Colace -) 100 mg PO BID [facility]S [facility] Last Admin: 11/27/16 10:42 Dose: 100 mg Fentanyl (Duragesic 75mcg Patch -) 1 patch TD Q72H [facility] 234 [facility]S [facility] Last Admin: 11/26/16 23:16 Dose: Not Given Ferrous Sulfate (Feosol -) 325 mg PO BID [facility]S [facility] Last Admin: 11/27/16 10:41 Dose: 325 mg Furosemide (Lasix -) 40 mg PO BID@0600,1400 [facility]S [facility] Last Admin: 11/27/16 06:02 Dose: 40 mg Gemfibrozil (Lopid -) 600 mg PO BIDAC [facility] 234 B[facility]S [facility] Last Admin: 11/27/16 06:10 Dose: 600 mg Heparin Sodium (Porcine) (Heparin -) 5,000 unit SQ BID [facility] 234 [facility]S [facility] Last Admin: 11/27/16 10:41 Dose: 5,000 unit Hydromorphone HCl (Dilaudid Injection -) 2 mg IVPB TID [facility] 234 [facility] Last Admin: 11/27/16 14:09 Dose: 2 mg Insulin Aspart (Novolog Vial Sliding Scale -) 1 vial SQ ACHS [facility]S [facility] PRN Reason: Protocol Last Admin: 11/27/16 11:43 Dose: Not Given Insulin Aspart (Novolog Mix 70/30 Vial) 45 units SQ BIDAC [facility] 234 B[facility]S [facility] Last Admin: 11/27/16 06:11 Dose: 45 units Lactulose (Cephulac (Oral Use)) 10 gm PO DAILY [facility] 234 [facility]S [facility] Last Admin: 11/27/16 10:17 Dose: 10 gm Losartan Potassium (Cozaar -) 25 mg PO DAILY [facility] 234 [facility] Last Admin: 11/27/16 10:29 Dose: 25 mg Methylnaltrexone [place] (Relistor -) 12 mg SQ DAILY [facility] 234 B[facility]S [facility] Last Admin: 11/27/16 10:43 Dose: 12 mg Methylprednisolone Sodium Succinate (Solu-Medrol -) 40 mg IVPB BID [facility] 234 B[facility]S [facility] Last Admin: 11/27/16 10:44 Dose: 40 mg Metoclopramide HCl (Reglan -) 5 mg PO TIDAC [facility] 234 [facility]S [facility] Last Admin: 11/27/16 14:15 Dose: 5 mg Miscellaneous (Duragesic Patch Waste) 1 each TD PRN PRN Ranitidine HCl (Zantac -) 300 mg PO DAILY [facility]S [facility] Last Admin: 11/27/16 10:16 Dose: 300 mg Roflumilast (Daliresp -) 500 mcg PO DAILY [facility] 234 [facility]S [facility] Last Admin: 11/27/16 10:42 Dose: 500 mcg Senna (Senna -) 2 tab PO HS PRN PRN Reason: CONSTIPATION Sitagliptin Phosphate (Januvia -) 25 mg PO DAILY@0700 [facility] 234 B[facility]S [facility] Last Admin: 11/27/16 06:09 Dose: 25 mg Sodium Chloride ([place] Nasal [place] -) 2 spray NS BID PRN PRN Reason: NASAL CONGESTION Tamsulosin HCl (Flomax -) 0.4 mg PO BID [facility] 234 B[facility]S AT [facility] Last Admin: 11/27/16 10:17 Dose: 0.4 mg Terazosin HCl (Hytrin -) 5 mg PO HS [facility] 234 B[facility]S AT [facility] Last Admin: 11/26/16 21:31 Dose: 5 mg Tiotropium [place] (Spiriva -) 1 puff IH DAILY [facility] 234 B[facility]S AT [facility] Last Admin: 11/27/16 10:32 Dose: 1 puff - Objective Vital Signs: Vital Signs Temperature 98.3 F 11/27/16 14:35 Pulse Rate 107 H 11/27/16 14:35 Respiratory Rate 20 11/27/16 14:35 Blood Pressure 152/75 11/27/16 14:35 O2 Sat by Pulse Oximetry (%) 92 L 11/27/16 13:49 Constitutional: Yes: Calm Eyes: Yes: Conjunctiva Clear HENT: Yes: Atraumatic Cardiovascular: Yes: S1, S2 Respiratory: Yes: Wheezes Gastrointestinal: Yes: Soft, Abdomen, Obese Genitourinary: Yes: WNL Musculoskeletal: Yes: WNL Edema: Yes Edema: LLE: 1+, RLE: 1+ Neurological: Yes: Oriented Psychiatric: Yes: Oriented Labs: CBC, BMP 11/26/16 06:30 11/26/16 06:30 INR, PTT INR 0.96 (0.82-1.09) 11/22/16 17:00 Problem List - Problems (1) Cough Code(s): R05 - COUGH (2) Diabetes mellitus, insulin dependent (IDDM), uncontrolled Code(s): E10.65 - TYPE 1 DIABETES MELLITUS WITH HYPERGLYCEMIA Qualifiers: Diabetes mellitus complication status: without complication Qualified Code(s): E10.9 - Type 1 diabetes mellitus without complications (3) HTN (hypertension) Code(s): I10 - ESSENTIAL (PRIMARY) HYPERTENSION Qualifiers: Hypertension type: essential hypertension Qualified Code(s): I10 - Essential (primary) hypertension (4) Shortness of breath Code(s): R06.02 - SHORTNESS OF BREATH (5) CHF (congestive heart failure) Code(s): I50.9 - HEART FAILURE, UNSPECIFIED Qualifiers: Congestive heart failure type: diastolic (6) CKD (chronic kidney disease) Code(s): N18.9 - CHRONIC KIDNEY DISEASE, UNSPECIFIED Qualifiers: Chronic kidney disease stage: unspecified stage Qualified Code(s): N18.9 - Chronic kidney disease, unspecified Assessment/Plan Current Medications Generic Name Dose Route Start Last Admin Trade Name Freq PRN Reason Stop Dose Admin Acetaminophen 650 mg 11/26/16 21:11 Tylenol - PO Q6H PRN FEVER OR PAIN Albuterol Sulfate 1 amp 11/23/16 13:35 11/27/16 13:48 Ventolin 0.083% Nebulizer Soln - NEB 1 amp Q4H PRN Administration SHORT OF BREATH/WHEEZING Allopurinol 100 mg 11/27/16 10:00 11/27/16 10:16 Zyloprim - PO 100 mg DAILY JO[facility]IS Administration Aspirin 81 mg 11/28/16 10:00 Asa - PO Q2D@1000 [facility] Budesonide/Formoterol Fumarate 2 puff 11/26/16 22:00 11/27/16 10:33 Symbicort 160/4.5mcg - IH 2 puff BID JOSE LUIS Administration Diltiazem HCl 120 mg 11/27/16 10:00 11/27/16 10:30 Cardizem Cd - PO 120 mg DAILY [facility] Administration Diphenhydramine HCl 25 mg 11/26/16 23:24 11/26/16 23:37 Benadryl - PO 25 mg Q4H PRN Administration ITCHING Docusate Sodium 100 mg 11/26/16 22:00 11/27/16 10:42 Colace - PO 100 mg BID [facility]SE [facility] Administration Fentanyl 1 patch 11/26/16 21:15 11/26/16 23:16 Duragesic 75mcg Patch - TD Not Given Q72H JOSE LUIS Ferrous Sulfate 325 mg 11/26/16 22:00 11/27/16 10:41 Feosol - PO 325 mg BID [facility] Administration Furosemide 40 mg 11/25/16 14:00 11/27/16 06:02 Lasix - PO 40 mg BID@0600,1400 [facility] Administration Gemfibrozil 600 mg 11/27/16 07:00 11/27/16 06:10 Lopid - PO 600 mg BIDAC [facility] Administration Heparin Sodium (Porcine) 5,000 unit 11/22/16 22:00 11/27/16 10:41 Heparin - SQ 5,000 unit BID [facility] Administration Hydromorphone HCl 2 mg 11/26/16 22:00 11/27/16 14:09 Dilaudid Injection - IVPB 2 mg TID [facility]SE [facility] Administration Insulin Aspart 1 vial 11/23/16 20:53 11/27/16 11:43 Novolog Vial Sliding Scale - SQ Not Given ACHS COUNTS INCLUDE 234 BEDS AT [facility] Protocol Insulin Aspart 45 units 11/25/16 10:30 11/27/16 06:11 Novolog Mix 70/30 Vial SQ 45 units BIDAC [facility] Administration Lactulose 10 gm 11/27/16 10:00 11/27/16 10:17 Cephulac (Oral Use) PO 10 gm DAILY [facility] Administration Losartan Potassium 25 mg 11/27/16 10:00 11/27/16 10:29 Cozaar - PO 25 mg DAILY [facility] Administration Methylnaltrexone [place] 12 mg 11/27/16 10:00 11/27/16 10:43 Relistor - SQ 12 mg DAILY [facility] Administration Methylprednisolone Sodium Succinate 40 mg 11/27/16 10:16 11/27/16 10:44 Solu-Medrol - IVPB 40 mg BID [facility] Administration Metoclopramide HCl 5 mg 11/27/16 07:00 11/27/16 14:15 Reglan - PO 5 mg TIDAC JOSE LUIS Administration Miscellaneous 1 each 11/22/16 18:58 Duragesic Patch Waste TD PRN PRN Ranitidine HCl 300 mg 11/27/16 10:00 11/27/16 10:16 Zantac - PO 300 mg DAILY [facility] Administration Roflumilast 500 mcg 11/27/16 10:00 11/27/16 10:42 Daliresp - PO 500 mcg DAILY [facility] Administration Senna 2 tab 11/26/16 21:16 Senna - PO HS PRN CONSTIPATION Sitagliptin Phosphate 25 mg 11/27/16 07:00 11/27/16 06:09 Januvia - PO 25 mg DAILY@0700 [facility] Administration Sodium Chloride 2 spray 11/26/16 21:17 [place] Nasal [place] - NS BID PRN NASAL CONGESTION Tamsulosin HCl 0.4 mg 11/26/16 22:00 11/27/16 10:17 Flomax - PO 0.4 mg BID JO[facility] Administration Terazosin HCl 5 mg 11/26/16 22:00 11/26/16 21:31 Hytrin - PO 5 mg HS JOSE LUIS Administration Tiotropium [place] 1 puff 11/27/16 10:00 11/27/16 10:32 Spiriva - IH 1 puff DAILY JOSE LU[facility] Administration Impression 1. CKD 2. DM 3. HTN 4. CHF 5. COPD 6. fluid overload 7. BPH 8. insomnia 9. narcotic dependence Plan - check bmp, will order labs - cont current meds - steroid taper - cont bipap as needed - monitor blood sugar - cardiology input appreciated - cont with [facility] - will follow Dr Nathan
[2016-11-27] MEDS ORDERED: INSULIN DETEMIR 100 UNITS/ML MDV SQ ONE (17:56)
[2016-11-27] MEDS ORDERED: INSULIN (NOVOLOG) ASPART 100 UNITS/ML 10ML VIAL ONE ×2 (17:57→21:31)
[2016-11-27] MEDS: TERAZOSIN HCL 5 MG CAPSULE PO SCH (21:21)
--- NOTE | 2016-11-27 23:39 | PN ---
Progress Note (short form) - Note Progress Note: has tolerated cpap well breathing improved while using cpap with respiratory adjustment,blood sugars have improved required lowering of insulin dose Laboratory Results - last 24 hr 11/27/16 11/27/16 11/27/16 06:04 11:32 12:16 POC Glucometer 496 54 105 11/27/16 11/27/16 16:35 21:24 POC Glucometer 256 214 Current Active Problems Bigeminy (Acute) Cough (Acute) Diabetes mellitus, insulin dependent (IDDM), uncontrolled (Acute) HTN (hypertension) (Acute) Hyperlipidemia LDL goal < 100 (Acute) Hypertriglyceridemia (Acute) Shortness of breath (Acute) Tachycardia (Acute) Wheeze (Acute) plan: consider cpap home therapy as per pulmonary decrease dose novolog 70/30 25 units bid Problem List - Problems (1) Diabetes mellitus, insulin dependent (IDDM), uncontrolled Code(s): E10.65 - TYPE 1 DIABETES MELLITUS WITH HYPERGLYCEMIA Qualifiers: Diabetes mellitus complication status: without complication Qualified Code(s): E10.9 - Type 1 diabetes mellitus without complications (2) HTN (hypertension) Code(s): I10 - ESSENTIAL (PRIMARY) HYPERTENSION Qualifiers: Hypertension type: essential hypertension Qualified Code(s): I10 - Essential (primary) hypertension (3) Hyperlipidemia LDL goal < 100 Code(s): E78.5 - HYPERLIPIDEMIA, UNSPECIFIED
[2016-11-28] MEDS: FUROSEMIDE 40 MG TABLET (FP) PO SCH ×2 (05:47→13:43)
[2016-11-28] MEDS: HYDROmorphone HCL CARPU-JECT 2 MG/1 ML DISP.SYRIN IVPB SCH ×3 (05:50→22:25)
[2016-11-28] MEDS: METOCLOPRAMIDE HCL 10 MG TABLET (FP) PO SCH ×3 (06:05→16:45)
[2016-11-28] MEDS: GEMFIBROZIL 600 MG TABLET (FP) PO SCH ×2 (06:06→16:45)
[2016-11-28] MEDS: INSULIN SLIDING SCALE (NOVOLOG) 1 VIAL SQ SCH ×4 (06:16→22:26)
[2016-11-28] MEDS: INSULIN (NOVOLOG MIX 70/30) 100 UNITS/ML MDV SQ SCH ×2 (06:16→16:43)
[2016-11-28] MEDS: sitaGLIPtin PHOSPHATE 25 MG TABLET (FP) PO SCH (06:17)
[2016-11-28 08:32] LABS: CALCIUM 8.5 mg/dL (8.5-10.1)
[2016-11-28 08:37] LABS: CREATININE 2.5 mg/dL (0.7-1.3)
--- NOTE | 2016-11-28 08:54 | PN ---
Progress Note (short form) - Note Progress Note: PULMONARY VSS/AFEBRILE ALBUTEROL CAUSING SHAKES ANICTERIC SCATTERED RHONCHI S1S2 BS+ OBESE LESS LOWER EXT EDEMA LABS/MEDS/NOTES/IMAGING/MICRO REVIEWED RESOLVING ACUTE EXACERBATION COPD CHRONIC HYPOXEMIC RESP FAILURE DM HTN CKD CHANGE ALBUTEROL TO ATROVENT D/C SPIRIVA CONSIDER DE-ESCALATING STEROIDS SHOULD HAVE NIVPPV AT HOME Jered VALE MD
--- NOTE | 2016-11-28 09:00 | PN ---
Progress Note, Physician Chief Complaint: Events noted Intermittent dyspnea and congestion History of Present Illness: Patient was seen and examined. Awake and alert. Chart was reviewed Denies chest pain or palpitations. Pulmonary input noted - Current Medication List Current Medications: Active Medications Acetaminophen (Tylenol -) 650 mg PO Q6H PRN PRN Reason: FEVER OR PAIN Allopurinol (Zyloprim -) 100 mg PO DAILY [facility] Last Admin: 11/27/16 10:16 Dose: 100 mg Aspirin (Asa -) 81 mg PO Q2D@1000 [facility] Budesonide/Formoterol Fumarate (Symbicort 160/4.5mcg -) 2 puff IH BID [facility] Last Admin: 11/27/16 22:31 Dose: 2 puff Diltiazem HCl (Cardizem Cd -) 120 mg PO DAILY [facility] Last Admin: 11/27/16 10:30 Dose: 120 mg Diphenhydramine HCl (Benadryl -) 25 mg PO Q4H PRN PRN Reason: ITCHING Last Admin: 11/26/16 23:37 Dose: 25 mg Docusate Sodium (Colace -) 100 mg PO BID [facility] Last Admin: 11/27/16 21:22 Dose: 100 mg Fentanyl (Duragesic 75mcg Patch -) 1 patch TD Q72H [facility] Last Admin: 11/26/16 23:16 Dose: Not Given Ferrous Sulfate (Feosol -) 325 mg PO BID [facility] Last Admin: 11/27/16 21:22 Dose: 325 mg Furosemide (Lasix -) 40 mg PO BID@0600,1400 [facility] Last Admin: 11/28/16 05:47 Dose: 40 mg Gemfibrozil (Lopid -) 600 mg PO BIDAC [facility] Last Admin: 11/28/16 06:06 Dose: 600 mg Heparin Sodium (Porcine) (Heparin -) 5,000 unit SQ BID [facility] Last Admin: 11/27/16 21:21 Dose: Not Given Hydromorphone HCl (Dilaudid Injection -) 2 mg IVPB TID [facility] Last Admin: 11/28/16 05:50 Dose: 2 mg Insulin Aspart (Novolog Vial Sliding Scale -) 1 vial SQ ACHS [facility] PRN Reason: Protocol Last Admin: 11/28/16 06:16 Dose: 9 units Insulin Aspart (Novolog Mix 70/30 Vial) 25 units SQ BIDAC [facility] Last Admin: 11/28/16 06:16 Dose: 25 unit Ipratropium [place] (Atrovent 0.02% Nebulizer -) 1 amp NEB Q6H PRN PRN Reason: DYSPEPSIA Stop: 12/05/16 08:49 Lactulose (Cephulac (Oral Use)) 10 gm PO DAILY [facility] Last Admin: 11/27/16 10:17 Dose: 10 gm Losartan Potassium (Cozaar -) 25 mg PO DAILY [facility] Last Admin: 11/27/16 10:29 Dose: 25 mg Methylnaltrexone [place] (Relistor -) 12 mg SQ DAILY [facility] Last Admin: 11/27/16 10:43 Dose: 12 mg Methylprednisolone Sodium Succinate (Solu-Medrol -) 40 mg IVPB BID [facility] Last Admin: 11/27/16 21:22 Dose: 40 mg Metoclopramide HCl (Reglan -) 5 mg PO TIDAC [facility] Last Admin: 11/28/16 06:05 Dose: 5 mg Miscellaneous (Duragesic Patch Waste) 1 each TD PRN PRN Ranitidine HCl (Zantac -) 300 mg PO DAILY [facility] Last Admin: 11/27/16 10:16 Dose: 300 mg Roflumilast (Daliresp -) 500 mcg PO DAILY [facility] Last Admin: 11/27/16 10:42 Dose: 500 mcg Senna (Senna -) 2 tab PO HS PRN PRN Reason: CONSTIPATION Sitagliptin Phosphate (Januvia -) 25 mg PO DAILY@0700 [facility] Last Admin: 11/28/16 06:17 Dose: 25 mg Sodium Chloride ([place] Nasal [place] -) 2 spray NS BID PRN PRN Reason: NASAL CONGESTION Tamsulosin HCl (Flomax -) 0.4 mg PO BID [facility] Last Admin: 11/27/16 21:22 Dose: 0.4 mg Terazosin HCl (Hytrin -) 5 mg PO HS [facility] Last Admin: 11/27/16 21:21 Dose: 5 mg - Objective Vital Signs: Vital Signs Temperature 98.4 F 11/28/16 08:51 Pulse Rate 102 H 11/28/16 08:51 Respiratory Rate 18 11/28/16 08:51 Blood Pressure 148/70 11/28/16 08:51 O2 Sat by Pulse Oximetry (%) 94 L 11/27/16 21:00 Neck: Yes: Supple Cardiovascular: Yes: Regular Rate and Rhythm, S1, S2 Respiratory: Yes: Rhonchi Gastrointestinal: Yes: Normal Bowel Sounds, Soft, Abdomen, Obese. No: Tenderness Edema: Yes Edema: LLE: 1+, RLE: 1+ Labs: CBC, BMP 11/26/16 06:30 11/28/16 06:00 Problem List - Problems (1) Cough Code(s): R05 - COUGH (2) Diabetes mellitus, insulin dependent (IDDM), uncontrolled Code(s): E10.65 - TYPE 1 DIABETES MELLITUS WITH HYPERGLYCEMIA Qualifiers: Diabetes mellitus complication status: without complication Qualified Code(s): E10.9 - Type 1 diabetes mellitus without complications (3) HTN (hypertension) Code(s): I10 - ESSENTIAL (PRIMARY) HYPERTENSION Qualifiers: Hypertension type: essential hypertension Qualified Code(s): I10 - Essential (primary) hypertension (4) Hyperlipidemia LDL goal < 100 Code(s): E78.5 - HYPERLIPIDEMIA, UNSPECIFIED (5) Shortness of breath Code(s): R06.02 - SHORTNESS OF BREATH (6) Acute on chronic diastolic (congestive) heart failure Code(s): I50.33 - ACUTE ON CHRONIC DIASTOLIC (CONGESTIVE) HEART FAILURE (7) Acute on chronic respiratory failure with hypoxia and hypercapnia Code(s): J96.21 - ACUTE AND CHRONIC RESPIRATORY FAILURE WITH HYPOXIA J96.22 - ACUTE AND CHRONIC RESPIRATORY FAILURE WITH HYPERCAPNIA (8) [id number] kidney injury Code(s): N17.9 - ACUTE KIDNEY FAILURE, UNSPECIFIED N18.9 - CHRONIC KIDNEY DISEASE, UNSPECIFIED (9) Anemia Code(s): D64.9 - ANEMIA, UNSPECIFIED Qualifiers: Anemia type: unspecified type Qualified Code(s): D64.9 - Anemia, unspecified (10) COPD (chronic obstructive pulmonary disease) Code(s): J44.9 - CHRONIC OBSTRUCTIVE PULMONARY DISEASE, UNSPECIFIED Qualifiers : COPD type: chronic bronchitis (11) Pneumonia Code(s): J18.9 - PNEUMONIA, UNSPECIFIED ORGANISM Qualifiers: Pneumonia type: due to unspecified organism Laterality: right Lung location: lower lobe of lung Qualified Code(s): J18.1 - Lobar pneumonia, unspecified organism Assessment/Plan 1. Acute on chronic LV diastolic heart failure 2. COPD with chronic hypoxic respiratory failure 3. Insulin-dependent type 2 diabetes mellitus 4. Hypercholesterolemia 5. Anemia 6. CKD 7. HTN PLAN: 1. Lasix PO with monitoring renal function and electrolytes - may use IV as needed 2. Continue ASA 81 mg QD, Lopid 600 mg BID, Cardizem CD 120 mg QD, Cozaar 25 mg QD and Hytrin 5 mg QHS 3. Bronchodilator, O2 to keep SpO2 >90%, IV steroid, Daliresp and compression therapy at the discretion of pulmonary service 4. DVT and GI prophylaxix 5. Eventually pulmonary rehab at the discretion of Pulmonary service Further plans are to follow Nicholas Silver MD
[2016-11-28] MEDS ORDERED: PT OWN MED DRAWER 7, Y5N ONE ×3 (09:15→22:28)
[2016-11-28] MEDS: DOCUSATE SODIUM 100 MG CAPSULE (FP) PO SCH ×2 (09:24→22:25)
[2016-11-28] MEDS: LOSARTAN POTASSIUM 25 MG TABLET PO SCH (09:25)
[2016-11-28] MEDS: RANITIDINE HCL 150 MG TABLET (FP) PO SCH (09:25)
[2016-11-28] MEDS: ASPIRIN 81 MG CHEWABLE TABLETS PO SCH (09:25)
[2016-11-28] MEDS: ALLOPURINOL 100 MG TABLET (FP) PO SCH (09:25)
[2016-11-28] MEDS: TAMSULOSIN HCL 0.4 MG CAP.ER.24H (FP) PO SCH ×2 (09:25→22:25)
[2016-11-28] MEDS: HEPARIN NA (PORCINE) 5,000 UNITS/ML 1ML VIAL SQ SCH ×2 (09:26→22:26)
[2016-11-28] MEDS: LACTULOSE 20 GM/30 ML UDC (FOR ORAL USE ONLY) PO SCH (09:26)
[2016-11-28] MEDS: methylPREDNISolone NA SUCC 40 MG/1 ML VIAL IVPB SCH ×3 (09:26→22:26)
[2016-11-28] MEDS: ROFLUMILAST 500 MCG TABLET PO SCH (09:27)
[2016-11-28] MEDS: Methylnaltrexone Bromide 12 MG/0.6 ML KIT SQ SCH (09:27)
--- NOTE | 2016-11-28 09:45 | PN ---
Progress Note, Physician - Current Medication List Current Medications: Active Medications Acetaminophen (Tylenol -) 650 mg PO Q6H PRN PRN Reason: FEVER OR PAIN Allopurinol (Zyloprim -) 100 mg PO DAILY [facility] Last Admin: 11/28/16 09:25 Dose: 100 mg Aspirin (Asa -) 81 mg PO Q2D@1000 [facility] Last Admin: 11/28/16 09:25 Dose: 81 mg Budesonide/Formoterol Fumarate (Symbicort 160/4.5mcg -) 2 puff IH BID [facility] Last Admin: 11/27/16 22:31 Dose: 2 puff Diltiazem HCl (Cardizem Cd -) 120 mg PO DAILY [facility] Last Admin: 11/28/16 09:24 Dose: 120 mg Diphenhydramine HCl (Benadryl -) 25 mg PO Q4H PRN PRN Reason: ITCHING Last Admin: 11/26/16 23:37 Dose: 25 mg Docusate Sodium (Colace -) 100 mg PO BID [facility] Last Admin: 11/28/16 09:24 Dose: 100 mg Fentanyl (Duragesic 75mcg Patch -) 1 patch TD Q72H [facility] Last Admin: 11/26/16 23:16 Dose: Not Given Ferrous Sulfate (Feosol -) 325 mg PO BID [facility] Last Admin: 11/27/16 21:22 Dose: 325 mg Furosemide (Lasix -) 40 mg PO BID@0600,1400 [facility] Last Admin: 11/28/16 05:47 Dose: 40 mg Gemfibrozil (Lopid -) 600 mg PO BIDAC [facility] Last Admin: 11/28/16 06:06 Dose: 600 mg Heparin Sodium (Porcine) (Heparin -) 5,000 unit SQ BID [facility] Last Admin: 11/28/16 09:26 Dose: 5,000 unit Hydromorphone HCl (Dilaudid Injection -) 2 mg IVPB TID [facility] Last Admin: 11/28/16 05:50 Dose: 2 mg Insulin Aspart (Novolog Vial Sliding Scale -) 1 vial SQ ACHS [facility] PRN Reason: Protocol Last Admin: 11/28/16 06:16 Dose: 9 units Insulin Aspart (Novolog Mix 70/30 Vial) 25 units SQ BIDAC [facility] Last Admin: 11/28/16 06:16 Dose: 25 unit Ipratropium [place] (Atrovent 0.02% Nebulizer -) 1 amp NEB Q6H PRN PRN Reason: DYSPEPSIA Stop: 12/05/16 08:49 Lactulose (Cephulac (Oral Use)) 10 gm PO DAILY [facility] Last Admin: 11/28/16 09:26 Dose: 10 gm Losartan Potassium (Cozaar -) 25 mg PO DAILY [facility] Last Admin: 11/28/16 09:25 Dose: 25 mg Methylnaltrexone [place] (Relistor -) 12 mg SQ DAILY [facility] Last Admin: 11/28/16 09:27 Dose: 12 mg Methylprednisolone Sodium Succinate (Solu-Medrol -) 40 mg IVPB BID [facility] Last Admin: 11/28/16 09:26 Dose: 40 mg Metoclopramide HCl (Reglan -) 5 mg PO TIDAC [facility] Last Admin: 11/28/16 06:05 Dose: 5 mg Miscellaneous (Duragesic Patch Waste) 1 each TD PRN PRN Ranitidine HCl (Zantac -) 300 mg PO DAILY [facility] Last Admin: 11/28/16 09:25 Dose: 300 mg Roflumilast (Daliresp -) 500 mcg PO DAILY [facility] Last Admin: 11/28/16 09:27 Dose: 500 mcg Senna (Senna -) 2 tab PO HS PRN PRN Reason: CONSTIPATION Sitagliptin Phosphate (Januvia -) 25 mg PO DAILY@0700 [facility] Last Admin: 11/28/16 06:17 Dose: 25 mg Sodium Chloride ([place] Nasal [place] -) 2 spray NS BID PRN PRN Reason: NASAL CONGESTION Tamsulosin HCl (Flomax -) 0.4 mg PO BID [facility] Last Admin: 11/28/16 09:25 Dose: 0.4 mg Terazosin HCl (Hytrin -) 5 mg PO HS [facility] Last Admin: 11/27/16 21:21 Dose: 5 mg - Objective Vital Signs: Vital Signs Temperature 98.4 F 11/28/16 08:51 Pulse Rate 102 H 11/28/16 08:51 Respiratory Rate 18 11/28/16 08:51 Blood Pressure 148/70 11/28/16 08:51 O2 Sat by Pulse Oximetry (%) 94 L 11/27/16 21:00 Cardiovascular: Yes: Regular Rate and Rhythm Respiratory: Yes: On Nasal O2, Rhonchi Gastrointestinal: Yes: Normal Bowel Sounds, Soft Peripheral Pulses: Left Femoral: 1+, Right Femoral: 1+ Labs: CBC, BMP 11/26/16 06:30 11/28/16 06:00 INR, PTT INR 0.96 (0.82-1.09) 11/22/16 17:00 Problem List - Problems (1) COPD (chronic obstructive pulmonary disease) Code(s): J44.9 - CHRONIC OBSTRUCTIVE PULMONARY DISEASE, UNSPECIFIED Qualifiers : COPD type: chronic bronchitis (2) Acute on chronic diastolic (congestive) heart failure Code(s): I50.33 - ACUTE ON CHRONIC DIASTOLIC (CONGESTIVE) HEART FAILURE (3) Diabetes mellitus, insulin dependent (IDDM), uncontrolled Code(s): E10.65 - TYPE 1 DIABETES MELLITUS WITH HYPERGLYCEMIA Qualifiers: Diabetes mellitus complication status: without complication Qualified Code(s): E10.9 - Type 1 diabetes mellitus without complications (4) HTN (hypertension) Code(s): I10 - ESSENTIAL (PRIMARY) HYPERTENSION Qualifiers: Hypertension type: essential hypertension Qualified Code(s): I10 - Essential (primary) hypertension Assessment/Plan - Problems (1) COPD (chronic obstructive pulmonary disease) Assessment/Plan: iv steroids taper to 20 bid bipapap at night daliresp symbicrot and spiriiva Code(s): J44.9 - CHRONIC OBSTRUCTIVE PULMONARY DISEASE, UNSPECIFIED Qualifiers : COPD type: chronic bronchitis (2) Acute on chronic diastolic (congestive) heart failure Assessment/Plan: po lasix 60bid continue other cardiac meds will monitor renal function Code(s): I50.33 - ACUTE ON CHRONIC DIASTOLIC (CONGESTIVE) HEART FAILURE (3) BPH (benign prostatic hyperplasia) Assessment/Plan: flomax Code(s): N40.0 - BENIGN PROSTATIC HYPERPLASIA WITHOUT LOWER URINRY TRACT SYMP (4) Constipation due to opioid therapy Assessment/Plan: change to relistor Code(s): K59.09 - OTHER CONSTIPATION T40.2X5A - ADVERSE EFFECT OF OTHER OPIOIDS, INITIAL ENCOUNTER (5) Diabetes mellitus Assessment/Plan: bgm noted will improve as steroids are tapered increase levemir Code(s): E11.9 - TYPE 2 DIABETES MELLITUS WITHOUT COMPLICATIONS Qualifiers: Diabetes mellitus type: type 2 Diabetes mellitus complication status: without complication Diabetes mellitus shelter insulin use: with shelter use Qualified Code(s): E11.9 - Type 2 diabetes mellitus without complications (6) Hyperlipidemia LDL goal < 100 Assessment/Plan: lopid Code(s): E78.5 - HYPERLIPIDEMIA, UNSPECIFIED (7) Chronic back pain greater than 3 months duration Assessment/Plan: fentanyl patch Code(s): M54.9 - DORSALGIA, UNSPECIFIED G89.29 - OTHER CHRONIC PAIN
[2016-11-28] MEDS: BUDESONIDE/FORMETEROL FUMARATE 160/4.5 mcg INHALER IH SCH ×3 (09:46→22:26)
[2016-11-28] MEDS: FERROUS SO4 325 MG TABLET (FP) PO SCH ×2 (09:46→22:25)
[2016-11-28] MEDS: IPRATROPIUM BR 0.02% 0.5 MG/2.5 ML VIAL.NEB. NEB PRN ×2 (10:25→18:30)
--- NOTE | 2016-11-28 12:04 | PN ---
Progress Note, Physician History of Present Illness: Pt seen and examined at bedside. He is awake and alert. He complains of wheezing. - Current Medication List Current Medications: Active Medications Acetaminophen (Tylenol -) 650 mg PO Q6H PRN PRN Reason: FEVER OR PAIN Allopurinol (Zyloprim -) 100 mg PO DAILY [facility] Last Admin: 11/28/16 09:25 Dose: 100 mg Aspirin (Asa -) 81 mg PO Q2D@1000 [facility] Last Admin: 11/28/16 09:25 Dose: 81 mg Budesonide/Formoterol Fumarate (Symbicort 160/4.5mcg -) 2 puff IH BID [facility] Last Admin: 11/28/16 09:46 Dose: 1 puff Diltiazem HCl (Cardizem Cd -) 120 mg PO DAILY [facility] Last Admin: 11/28/16 09:24 Dose: 120 mg Diphenhydramine HCl (Benadryl -) 25 mg PO Q4H PRN PRN Reason: ITCHING Last Admin: 11/26/16 23:37 Dose: 25 mg Docusate Sodium (Colace -) 100 mg PO BID [facility] Last Admin: 11/28/16 09:24 Dose: 100 mg Fentanyl (Duragesic 75mcg Patch -) 1 patch TD Q72H [facility] Last Admin: 11/26/16 23:16 Dose: Not Given Ferrous Sulfate (Feosol -) 325 mg PO BID [facility] Last Admin: 11/28/16 09:46 Dose: 325 mg Furosemide (Lasix -) 60 mg PO BID@0600,1400 [facility] Gemfibrozil (Lopid -) 600 mg PO BIDAC [facility] Last Admin: 11/28/16 06:06 Dose: 600 mg Heparin Sodium (Porcine) (Heparin -) 5,000 unit SQ BID [facility] Last Admin: 11/28/16 09:26 Dose: 5,000 unit Hydromorphone HCl (Dilaudid Injection -) 2 mg IVPB TID [facility] Last Admin: 11/28/16 05:50 Dose: 2 mg Insulin Aspart (Novolog Vial Sliding Scale -) 1 vial SQ ACHS [facility] PRN Reason: Protocol Last Admin: 11/28/16 11:38 Dose: Not Given Insulin Aspart (Novolog Mix 70/30 Vial) 30 units SQ BIDAC [facility] Ipratropium [place] (Atrovent 0.02% Nebulizer -) 1 amp NEB Q6H PRN PRN Reason: DYSPEPSIA Stop: 12/05/16 08:49 Last Admin: 11/28/16 10:25 Dose: 1 amp Lactulose (Cephulac (Oral Use)) 10 gm PO DAILY [facility] Last Admin: 11/28/16 09:26 Dose: 10 gm Losartan Potassium (Cozaar -) 25 mg PO DAILY [facility] Last Admin: 11/28/16 09:25 Dose: 25 mg Methylnaltrexone [place] (Relistor -) 12 mg SQ DAILY [facility] Last Admin: 11/28/16 09:27 Dose: 12 mg Methylprednisolone Sodium Succinate (Solu-Medrol -) 20 mg IVPB BID [facility] Last Admin: 11/28/16 10:09 Dose: Not Given Metoclopramide HCl (Reglan -) 5 mg PO TIDAC [facility] Last Admin: 11/28/16 11:32 Dose: 5 mg Miscellaneous (Duragesic Patch Waste) 1 each TD PRN PRN Ranitidine HCl (Zantac -) 300 mg PO DAILY [facility] Last Admin: 11/28/16 09:25 Dose: 300 mg Roflumilast (Daliresp -) 500 mcg PO DAILY [facility] Last Admin: 11/28/16 09:27 Dose: 500 mcg Senna (Senna -) 2 tab PO HS PRN PRN Reason: CONSTIPATION Sitagliptin Phosphate (Januvia -) 25 mg PO DAILY@0700 [facility] Last Admin: 11/28/16 06:17 Dose: 25 mg Sodium Chloride ([place] Nasal [place] -) 2 spray NS BID PRN PRN Reason: NASAL CONGESTION Tamsulosin HCl (Flomax -) 0.4 mg PO BID [facility] Last Admin: 11/28/16 09:25 Dose: 0.4 mg Terazosin HCl (Hytrin -) 5 mg PO HS [facility] Last Admin: 11/27/16 21:21 Dose: 5 mg - Objective Vital Signs: Vital Signs Temperature 98.4 F 11/28/16 08:51 Pulse Rate 91 H 11/28/16 10:24 Respiratory Rate 18 11/28/16 08:51 Blood Pressure 148/70 11/28/16 08:51 O2 Sat by Pulse Oximetry (%) 93 L 11/28/16 10:50 Constitutional: Yes: Calm Eyes: Yes: Conjunctiva Clear HENT: Yes: Atraumatic Neck: Yes: Supple Cardiovascular: Yes: S1, S2 Respiratory: Yes: Wheezes Gastrointestinal: Yes: Soft, Abdomen, Obese Genitourinary: Yes: WNL Musculoskeletal: Yes: WNL Edema: Yes Edema: LLE: 1+, RLE: 1+ Neurological: Yes: Oriented Psychiatric: Yes: Oriented Labs: CBC, BMP 11/26/16 06:30 11/28/16 06:00 INR, PTT INR 0.96 (0.82-1.09) 11/22/16 17:00 Problem List - Problems (1) Cough Code(s): R05 - COUGH (2) Diabetes mellitus, insulin dependent (IDDM), uncontrolled Code(s): E10.65 - TYPE 1 DIABETES MELLITUS WITH HYPERGLYCEMIA Qualifiers: Diabetes mellitus complication status: without complication Qualified Code(s): E10.9 - Type 1 diabetes mellitus without complications (3) HTN (hypertension) Code(s): I10 - ESSENTIAL (PRIMARY) HYPERTENSION Qualifiers: Hypertension type: essential hypertension Qualified Code(s): I10 - Essential (primary) hypertension (4) Shortness of breath Code(s): R06.02 - SHORTNESS OF BREATH (5) CHF (congestive heart failure) Code(s): I50.9 - HEART FAILURE, UNSPECIFIED Qualifiers: Congestive heart failure type: diastolic (6) CKD (chronic kidney disease) Code(s): N18.9 - CHRONIC KIDNEY DISEASE, UNSPECIFIED Qualifiers: Chronic kidney disease stage: unspecified stage Qualified Code(s): N18.9 - Chronic kidney disease, unspecified Assessment/Plan Current Medications Generic Name Dose Route Start Last Admin Trade Name Freq PRN Reason Stop Dose Admin Acetaminophen 650 mg 11/26/16 21:11 Tylenol - PO Q6H PRN FEVER OR PAIN Allopurinol 100 mg 11/27/16 10:00 11/28/16 09:25 Zyloprim - PO 100 mg DAILY [facility] Administration Aspirin 81 mg 11/28/16 10:00 11/28/16 09:25 Asa - PO 81 mg Q2D@1000 [facility] Administration Budesonide/Formoterol Fumarate 2 puff 11/26/16 22:00 11/28/16 09:46 Symbicort 160/4.5mcg - IH 1 puff BID [facility] Administration Diltiazem HCl 120 mg 11/27/16 10:00 11/28/16 09:24 Cardizem Cd - PO 120 mg DAILY [facility] Administration Diphenhydramine HCl 25 mg 11/26/16 23:24 11/26/16 23:37 Benadryl - PO 25 mg Q4H PRN Administration ITCHING Docusate Sodium 100 mg 11/26/16 22:00 11/28/16 09:24 Colace - PO 100 mg BID [facility] Administration Fentanyl 1 patch 11/26/16 21:15 11/26/16 23:16 Duragesic 75mcg Patch - TD Not Given Q72H [facility] Ferrous Sulfate 325 mg 11/26/16 22:00 11/28/16 09:46 Feosol - PO 325 mg BID [facility] Administration Furosemide 60 mg 11/28/16 09:46 Lasix - PO BID@0600,1400 [facility] Gemfibrozil 600 mg 11/27/16 07:00 11/28/16 06:06 Lopid - PO 600 mg BIDAC [facility] Administration Heparin Sodium (Porcine) 5,000 unit 11/27/16 22:00 11/28/16 09:26 Heparin - SQ 5,000 unit BID [facility] Administration Hydromorphone HCl 2 mg 11/26/16 22:00 11/28/16 05:50 Dilaudid Injection - IVPB 2 mg TID [facility] Administration Insulin Aspart 1 vial 11/23/16 20:53 11/28/16 11:38 Novolog Vial Sliding Scale - SQ Not Given ACHS [facility] Protocol Insulin Aspart 30 units 11/28/16 09:47 Novolog Mix 70/30 Vial SQ BIDAC [facility] Ipratropium [place] 1 amp 11/28/16 08:49 11/28/16 10:25 Atrovent 0.02% Nebulizer - NEB 12/05/16 08:49 1 amp Q6H PRN Administration DYSPEPSIA Lactulose 10 gm 11/27/16 10:00 11/28/16 09:26 Cephulac (Oral Use) PO 10 gm DAILY [facility] Administration Losartan Potassium 25 mg 11/27/16 10:00 11/28/16 09:25 Cozaar - PO 25 mg DAILY [facility] Administration Methylnaltrexone [place] 12 mg 11/27/16 10:00 11/28/16 09:27 Relistor - SQ 12 mg DAILY [facility] Administration Methylprednisolone Sodium Succinate 20 mg 11/28/16 09:47 11/28/16 10:09 Solu-Medrol - IVPB Not Given BID [facility] Metoclopramide HCl 5 mg 11/27/16 07:00 11/28/16 11:32 Reglan - PO 5 mg TIDAC [facility] Administration Miscellaneous 1 each 11/22/16 18:58 Duragesic Patch Waste TD PRN PRN Ranitidine HCl 300 mg 11/27/16 10:00 11/28/16 09:25 Zantac - PO 300 mg DAILY [facility] Administration Roflumilast 500 mcg 11/27/16 10:00 11/28/16 09:27 Daliresp - PO 500 mcg DAILY [facility] Administration Senna 2 tab 11/26/16 21:16 Senna - PO HS PRN CONSTIPATION Sitagliptin Phosphate 25 mg 11/27/16 07:00 11/28/16 06:17 Januvia - PO 25 mg DAILY@0700 [facility] Administration Sodium Chloride 2 spray 11/26/16 21:17 [place] Nasal [place] - NS BID PRN NASAL CONGESTION Tamsulosin HCl 0.4 mg 11/26/16 22:00 11/28/16 09:25 Flomax - PO 0.4 mg BID [facility] Administration Terazosin HCl 5 mg 11/26/16 22:00 11/27/16 21:21 Hytrin - PO 5 mg HS [facility] Administration Impression 1. CKD 2. DM 3. HTN 4. CHF 5. COPD 6. fluid overload 7. BPH 8. insomnia 9. narcotic dependence Plan - switch lasix to PO - will need to monitor renal function - cont steroids - will give resp treatment as he is wheezing - pt will follow with Dr Nelson as outpt - will need better glucose control - cardiology input appreciated - cont with [facility] - will follow Dr Nathan
[2016-11-28] MEDS ORDERED: INSULIN (NOVOLOG) ASPART 100 UNITS/ML 10ML VIAL ONE (16:58)
[2016-11-28] MEDS ORDERED: INSULIN (NOVOLOG MIX 70/30) 100 UNITS/ML MDV SQ ONE (16:58)
[2016-11-28] MEDS ORDERED: INSULIN DETEMIR 100 UNITS/ML MDV SQ ONE (16:59)
[2016-11-28] MEDS: TERAZOSIN HCL 5 MG CAPSULE PO SCH (22:26)
[2016-11-29] MEDS: IPRATROPIUM BR 0.02% 0.5 MG/2.5 ML VIAL.NEB. NEB PRN ×2 (00:13→05:59)
[2016-11-29] MEDS: HYDROmorphone HCL CARPU-JECT 2 MG/1 ML DISP.SYRIN IVPB SCH ×2 (06:39→22:06)
[2016-11-29] MEDS: FUROSEMIDE 40 MG TABLET (FP) PO SCH ×2 (06:40→14:05)
[2016-11-29] MEDS: INSULIN (NOVOLOG MIX 70/30) 100 UNITS/ML MDV SQ SCH ×2 (06:40→18:33)
[2016-11-29] MEDS: sitaGLIPtin PHOSPHATE 25 MG TABLET (FP) PO SCH (06:40)
[2016-11-29] MEDS: INSULIN SLIDING SCALE (NOVOLOG) 1 VIAL SQ SCH ×4 (06:40→22:08)
[2016-11-29] MEDS: GEMFIBROZIL 600 MG TABLET (FP) PO SCH ×2 (06:40→18:32)
[2016-11-29] MEDS: METOCLOPRAMIDE HCL 10 MG TABLET (FP) PO SCH ×3 (06:41→18:34)
--- NOTE | 2016-11-29 08:28 | PN ---
Progress Note, Physician History of Present Illness: FEELS BETTER INTERMITTENT COUGH - Current Medication List Current Medications: Active Medications Acetaminophen (Tylenol -) 650 mg PO Q6H PRN PRN Reason: FEVER OR PAIN Allopurinol (Zyloprim -) 100 mg PO DAILY [facility] Last Admin: 11/28/16 09:25 Dose: 100 mg Aspirin (Asa -) 81 mg PO Q2D@1000 [facility] Last Admin: 11/28/16 09:25 Dose: 81 mg Budesonide/Formoterol Fumarate (Symbicort 160/4.5mcg -) 2 puff IH BID [facility] Last Admin: 11/28/16 22:26 Dose: 2 puff Diltiazem HCl (Cardizem Cd -) 120 mg PO DAILY [facility] Last Admin: 11/28/16 09:24 Dose: 120 mg Diphenhydramine HCl (Benadryl -) 25 mg PO Q4H PRN PRN Reason: ITCHING Last Admin: 11/26/16 23:37 Dose: 25 mg Docusate Sodium (Colace -) 100 mg PO BID [facility] Last Admin: 11/28/16 22:25 Dose: 100 mg Fentanyl (Duragesic 75mcg Patch -) 1 patch TD Q72H [facility] Last Admin: 11/26/16 23:16 Dose: Not Given Ferrous Sulfate (Feosol -) 325 mg PO BID [facility] Last Admin: 11/28/16 22:25 Dose: 325 mg Furosemide (Lasix -) 60 mg PO BID@0600,1400 [facility] Last Admin: 11/29/16 06:40 Dose: 60 mg Gemfibrozil (Lopid -) 600 mg PO BIDAC [facility] Last Admin: 11/29/16 06:40 Dose: 600 mg Heparin Sodium (Porcine) (Heparin -) 5,000 unit SQ BID [facility] Last Admin: 11/28/16 22:26 Dose: Not Given Hydromorphone HCl (Dilaudid Injection -) 2 mg IVPB TID [facility] Last Admin: 11/29/16 06:39 Dose: 2 mg Insulin Aspart (Novolog Vial Sliding Scale -) 1 vial SQ ACHS [facility] PRN Reason: Protocol Last Admin: 11/29/16 06:40 Dose: 10 units Insulin Aspart (Novolog Mix 70/30 Vial) 30 units SQ BIDAC [facility] Last Admin: 11/29/16 06:40 Dose: 30 unit Ipratropium [place] (Atrovent 0.02% Nebulizer -) 1 amp NEB Q6H PRN PRN Reason: DYSPEPSIA Stop: 12/05/16 08:49 Last Admin: 11/29/16 05:59 Dose: 1 amp Lactulose (Cephulac (Oral Use)) 10 gm PO DAILY [facility] Last Admin: 11/28/16 09:26 Dose: 10 gm Losartan Potassium (Cozaar -) 25 mg PO DAILY [facility] Last Admin: 11/28/16 09:25 Dose: 25 mg Methylnaltrexone [place] (Relistor -) 12 mg SQ DAILY [facility] Last Admin: 11/28/16 09:27 Dose: 12 mg Methylprednisolone Sodium Succinate (Solu-Medrol -) 20 mg IVPB BID [facility] Last Admin: 11/28/16 22:26 Dose: 20 mg Metoclopramide HCl (Reglan -) 5 mg PO TIDAC [facility] Last Admin: 11/29/16 06:41 Dose: 5 mg Miscellaneous (Duragesic Patch Waste) 1 each TD PRN PRN Ranitidine HCl (Zantac -) 300 mg PO DAILY [facility] Last Admin: 11/28/16 09:25 Dose: 300 mg Roflumilast (Daliresp -) 500 mcg PO DAILY [facility] Last Admin: 11/28/16 09:27 Dose: 500 mcg Senna (Senna -) 2 tab PO HS PRN PRN Reason: CONSTIPATION Sitagliptin Phosphate (Januvia -) 25 mg PO DAILY@0700 [facility] Last Admin: 11/29/16 06:40 Dose: 25 mg Sodium Chloride ([place] Nasal [place] -) 2 spray NS BID PRN PRN Reason: NASAL CONGESTION Tamsulosin HCl (Flomax -) 0.4 mg PO BID [facility] Last Admin: 11/28/16 22:25 Dose: 0.4 mg Terazosin HCl (Hytrin -) 5 mg PO HS [facility] Last Admin: 11/28/16 22:26 Dose: 5 mg - Objective Vital Signs: Vital Signs Temperature 98.1 F 11/29/16 06:00 Pulse Rate 101 H 11/29/16 06:00 Respiratory Rate 20 11/29/16 06:00 Blood Pressure 159/70 11/29/16 06:00 O2 Sat by Pulse Oximetry (%) 97 11/28/16 21:00 Cardiovascular: Yes: Regular Rate and Rhythm, Murmur Respiratory: Yes: Rhonchi Gastrointestinal: Yes: Normal Bowel Sounds, Soft Edema: Yes Labs: CBC, BMP 11/26/16 06:30 11/28/16 06:00 INR, PTT INR 0.96 (0.82-1.09) 11/22/16 17:00 Problem List - Problems (1) COPD (chronic obstructive pulmonary disease) Code(s): J44.9 - CHRONIC OBSTRUCTIVE PULMONARY DISEASE, UNSPECIFIED Qualifiers : COPD type: chronic bronchitis (2) Acute on chronic diastolic (congestive) heart failure Code(s): I50.33 - ACUTE ON CHRONIC DIASTOLIC (CONGESTIVE) HEART FAILURE (3) Diabetes mellitus, insulin dependent (IDDM), uncontrolled Code(s): E10.65 - TYPE 1 DIABETES MELLITUS WITH HYPERGLYCEMIA Qualifiers: Diabetes mellitus complication status: without complication Qualified Code(s): E10.9 - Type 1 diabetes mellitus without complications (4) HTN (hypertension) Code(s): I10 - ESSENTIAL (PRIMARY) HYPERTENSION Qualifiers: Hypertension type: essential hypertension Qualified Code(s): I10 - Essential (primary) hypertension Assessment/Plan - Problems (1) COPD (chronic obstructive pulmonary disease) Assessment/Plan: iv steroids taper to 20 bid--TO PO bipapap at night daliresp symbicrot and spiriiva Code(s): J44.9 - CHRONIC OBSTRUCTIVE PULMONARY DISEASE, UNSPECIFIED Qualifiers : COPD type: chronic bronchitis (2) Acute on chronic diastolic (congestive) heart failure Assessment/Plan: po lasix 60bid continue other cardiac meds will monitor renal function Code(s): I50.33 - ACUTE ON CHRONIC DIASTOLIC (CONGESTIVE) HEART FAILURE (3) BPH (benign prostatic hyperplasia) Assessment/Plan: flomax Code(s): N40.0 - BENIGN PROSTATIC HYPERPLASIA WITHOUT LOWER URINRY TRACT SYMP (4) Constipation due to opioid therapy Assessment/Plan: change to relistor Code(s): K59.09 - OTHER CONSTIPATION T40.2X5A - ADVERSE EFFECT OF OTHER OPIOIDS, INITIAL ENCOUNTER (5) Diabetes mellitus Assessment/Plan: bgm noted will improve as steroids are tapered increase levemir Code(s): E11.9 - TYPE 2 DIABETES MELLITUS WITHOUT COMPLICATIONS Qualifiers: Diabetes mellitus type: type 2 Diabetes mellitus complication status: without complication Diabetes mellitus shelter insulin use: with shelter use Qualified Code(s): E11.9 - Type 2 diabetes mellitus without complications (6) Hyperlipidemia LDL goal < 100 Assessment/Plan: lopid Code(s): E78.5 - HYPERLIPIDEMIA, UNSPECIFIED (7) Chronic back pain greater than 3 months duration Assessment/Plan: fentanyl patch Code(s): M54.9 - DORSALGIA, UNSPECIFIED G89.29 - OTHER CHRONIC PAIN
[2016-11-29] MEDS: predniSONE 10 MG TABLET (UD) PO SCH ×2 (09:51→22:06)
[2016-11-29] MEDS: ALLOPURINOL 100 MG TABLET (FP) PO SCH (09:51)
[2016-11-29] MEDS: TAMSULOSIN HCL 0.4 MG CAP.ER.24H (FP) PO SCH ×2 (09:51→22:07)
[2016-11-29] MEDS: LACTULOSE 20 GM/30 ML UDC (FOR ORAL USE ONLY) PO SCH (09:52)
[2016-11-29] MEDS: LOSARTAN POTASSIUM 25 MG TABLET PO SCH (09:52)
[2016-11-29] MEDS: RANITIDINE HCL 150 MG TABLET (FP) PO SCH (09:52)
[2016-11-29] MEDS: FERROUS SO4 325 MG TABLET (FP) PO SCH ×2 (09:52→22:07)
[2016-11-29] MEDS: HEPARIN NA (PORCINE) 5,000 UNITS/ML 1ML VIAL SQ SCH ×2 (09:53→22:07)
[2016-11-29] MEDS: BUDESONIDE/FORMETEROL FUMARATE 160/4.5 mcg INHALER IH SCH ×2 (09:54→22:08)
[2016-11-29] MEDS ORDERED: PT OWN MED DRAWER 7, Y5N ONE ×2 (10:00→10:54)
[2016-11-29] MEDS: ROFLUMILAST 500 MCG TABLET PO SCH (10:03)
[2016-11-29] MEDS: Methylnaltrexone Bromide 12 MG/0.6 ML KIT SQ SCH (10:03)
--- NOTE | 2016-11-29 10:10 | PN ---
Progress Note (short form) - Note Progress Note: PULMONARY States breathing continues to improve. No fevers or chills. Agitated about pain meds, even though nurse explained that his medication dose was increased. Last Vital Signs Temp Pulse Resp BP Pulse Ox 98.1 F 101 H 20 159/70 97 11/29/16 06:00 11/29/16 06:00 11/29/16 06:00 11/29/16 06:00 11/28/16 21:00 Gen: NAD at rest Heart: RRR Lung: distant breath sounds, no wheezes appreciated Abd: soft, nontender Ext: + edema CBC, BMP 11/26/16 06:30 11/28/16 06:00 Active Medications Acetaminophen (Tylenol -) 650 mg PO Q6H PRN PRN Reason: FEVER OR PAIN Albuterol/Ipratropium (Duoneb -) 1 amp NEB QIDR [facility] Allopurinol (Zyloprim -) 100 mg PO DAILY [facility] Last Admin: 11/29/16 09:51 Dose: 100 mg Aspirin (Asa -) 81 mg PO Q2D@1000 [facility] Last Admin: 11/28/16 09:25 Dose: 81 mg Budesonide/Formoterol Fumarate (Symbicort 160/4.5mcg -) 2 puff IH BID [facility] Last Admin: 11/29/16 09:54 Dose: 2 puff Diltiazem HCl (Cardizem Cd -) 120 mg PO DAILY [facility] Last Admin: 11/29/16 09:53 Dose: 120 mg Docusate Sodium (Colace -) 100 mg PO HS [facility] Fentanyl (Duragesic 75mcg Patch -) 1 patch TD Q72H [facility] Last Admin: 11/26/16 23:16 Dose: Not Given Ferrous Sulfate (Feosol -) 325 mg PO BID [facility] Last Admin: 11/29/16 09:52 Dose: 325 mg Furosemide (Lasix -) 60 mg PO BID@0600,1400 [facility] Last Admin: 11/29/16 06:40 Dose: 60 mg Gemfibrozil (Lopid -) 600 mg PO BIDAC [facility] Last Admin: 11/29/16 06:40 Dose: 600 mg Heparin Sodium (Porcine) (Heparin -) 5,000 unit SQ BID [facility] Last Admin: 11/29/16 09:53 Dose: 5,000 unit Hydromorphone HCl (Dilaudid Injection -) 2 mg IVPB HS [facility] Insulin Aspart (Novolog Vial Sliding Scale -) 1 vial SQ ACHS JOSE LUIS PRN Reason: Protocol Last Admin: 11/29/16 06:40 Dose: 10 units Insulin Aspart (Novolog Mix 70/30 Vial) 30 units SQ BIDAC [facility] Last Admin: 11/29/16 06:40 Dose: 30 unit Lactulose (Cephulac (Oral Use)) 10 gm PO DAILY [facility] Last Admin: 11/29/16 09:52 Dose: 10 gm Losartan Potassium (Cozaar -) 25 mg PO DAILY [facility] Last Admin: 11/29/16 09:52 Dose: 25 mg Methylnaltrexone [place] (Relistor -) 12 mg SQ DAILY [facility] Last Admin: 11/29/16 10:03 Dose: 12 mg Metoclopramide HCl (Reglan -) 5 mg PO TIDAC [facility] Last Admin: 11/29/16 06:41 Dose: 5 mg Miscellaneous (Duragesic Patch Waste) 1 each TD PRN PRN Prednisone (Deltasone -) 30 mg PO BID [facility] Last Admin: 11/29/16 09:51 Dose: 30 mg Ranitidine HCl (Zantac -) 300 mg PO DAILY [facility] Last Admin: 11/29/16 09:52 Dose: 300 mg Roflumilast (Daliresp -) 500 mcg PO DAILY [facility] Last Admin: 11/29/16 10:03 Dose: 500 mcg Senna (Senna -) 2 tab PO HS PRN PRN Reason: CONSTIPATION Sitagliptin Phosphate (Januvia -) 25 mg PO DAILY@0700 [facility] Last Admin: 11/29/16 06:40 Dose: 25 mg Sodium Chloride ([place] Nasal [place] -) 2 spray NS BID PRN PRN Reason: NASAL CONGESTION Tamsulosin HCl (Flomax -) 0.4 mg PO BID [facility] Last Admin: 11/29/16 09:51 Dose: 0.4 mg Terazosin HCl (Hytrin -) 5 mg PO HS [facility] Last Admin: 11/28/16 22:26 Dose: 5 mg A/P Acute COPD Exacerbation Chronic Hypoxic Respiratory Failure CHF HTN DM CKD - lung exam continues to improve, agree with prednisone taper - inhaled bronchodilators - O2 to keep SpO2 >90% - glucose control while on systemic steroids - BiPAP at night and PRN during day - lasix - monitor urine output, creatinine - DVT prophylaxis
[2016-11-29] MEDS: ALBUTEROL SO4 2.5/IPRATROPIUM 0.5 INH SOL 3 ML VIAL.NEB. NEB SCH ×3 (11:13→23:00)
--- NOTE | 2016-11-29 16:44 | PN ---
Progress Note, Physician Chief Complaint: Events noted No major distress today History of Present Illness: Patient was seen and examined. Awake and alert. Chart was reviewed Denies chest pain or palpitations. - Current Medication List Current Medications: Active Medications Acetaminophen (Tylenol -) 650 mg PO Q6H PRN PRN Reason: FEVER OR PAIN Albuterol/Ipratropium (Duoneb -) 1 amp NEB QIDR [facility] Last Admin: 11/29/16 11:13 Dose: 1 amp Allopurinol (Zyloprim -) 100 mg PO DAILY [facility] Last Admin: 11/29/16 09:51 Dose: 100 mg Aspirin (Asa -) 81 mg PO Q2D@1000 [facility] Last Admin: 11/28/16 09:25 Dose: 81 mg Budesonide/Formoterol Fumarate (Symbicort 160/4.5mcg -) 2 puff IH BID [facility] Last Admin: 11/29/16 09:54 Dose: 2 puff Diltiazem HCl (Cardizem Cd -) 120 mg PO DAILY [facility] Last Admin: 11/29/16 09:53 Dose: 120 mg Docusate Sodium (Colace -) 100 mg PO HS [facility] Fentanyl (Duragesic 75mcg Patch -) 1 patch TD Q72H [facility] Last Admin: 11/26/16 23:16 Dose: Not Given Ferrous Sulfate (Feosol -) 325 mg PO BID [facility] Last Admin: 11/29/16 09:52 Dose: 325 mg Furosemide (Lasix -) 60 mg PO BID@0600,1400 [facility] Last Admin: 11/29/16 14:05 Dose: 60 mg Gemfibrozil (Lopid -) 600 mg PO BIDAC [facility] Last Admin: 11/29/16 06:40 Dose: 600 mg Heparin Sodium (Porcine) (Heparin -) 5,000 unit SQ BID [facility] Last Admin: 11/29/16 09:53 Dose: 5,000 unit Hydromorphone HCl (Dilaudid Injection -) 2 mg IVPB [facility] Insulin Aspart (Novolog Vial Sliding Scale -) 1 vial SQ ACHS [facility] PRN Reason: Protocol Last Admin: 11/29/16 13:13 Dose: Not Given Insulin Aspart (Novolog Mix 70/30 Vial) 30 units SQ BIDAC [facility] Last Admin: 11/29/16 06:40 Dose: 30 unit Lactulose (Cephulac (Oral Use)) 10 gm PO DAILY [facility] Last Admin: 11/29/16 09:52 Dose: 10 gm Losartan Potassium (Cozaar -) 25 mg PO DAILY [facility] Last Admin: 11/29/16 09:52 Dose: 25 mg Methylnaltrexone [place] (Relistor -) 12 mg SQ DAILY [facility] Last Admin: 11/29/16 10:03 Dose: 12 mg Metoclopramide HCl (Reglan -) 5 mg PO TIDAC [facility] Last Admin: 11/29/16 13:13 Dose: Not Given Miscellaneous (Duragesic Patch Waste) 1 each TD PRN PRN Prednisone (Deltasone -) 30 mg PO BID [facility] Last Admin: 11/29/16 09:51 Dose: 30 mg Ranitidine HCl (Zantac -) 300 mg PO DAILY [facility] Last Admin: 11/29/16 09:52 Dose: 300 mg Roflumilast (Daliresp -) 500 mcg PO DAILY [facility] Last Admin: 11/29/16 10:03 Dose: 500 mcg Senna (Senna -) 2 tab PO HS PRN PRN Reason: CONSTIPATION Sitagliptin Phosphate (Januvia -) 25 mg PO DAILY@0700 [facility] Last Admin: 11/29/16 06:40 Dose: 25 mg Sodium Chloride ([place] Nasal [place] -) 2 spray NS BID PRN PRN Reason: NASAL CONGESTION Tamsulosin HCl (Flomax -) 0.4 mg PO BID [facility] Last Admin: 11/29/16 09:51 Dose: 0.4 mg Terazosin HCl (Hytrin -) 5 mg PO HS [facility] Last Admin: 11/28/16 22:26 Dose: 5 mg - Objective Vital Signs: Vital Signs Temperature 98.8 F 11/29/16 14:51 Pulse Rate 92 H 11/29/16 14:51 Respiratory Rate 20 11/29/16 14:51 Blood Pressure 132/82 11/29/16 10:00 O2 Sat by Pulse Oximetry (%) 97 11/28/16 21:00 Neck: Yes: Supple Cardiovascular: Yes: Regular Rate and Rhythm, S1, S2 Respiratory: Yes: Diminished Gastrointestinal: Yes: Normal Bowel Sounds, Soft. No: Tenderness Edema: Yes Edema: LLE: 1+, RLE: 1+ Labs: 11/28/16 06:00 Problem List - Problems (1) Cough Code(s): R05 - COUGH (2) Diabetes mellitus, insulin dependent (IDDM), uncontrolled Code(s): E10.65 - TYPE 1 DIABETES MELLITUS WITH HYPERGLYCEMIA Qualifiers: Diabetes mellitus complication status: without complication Qualified Code(s): E10.9 - Type 1 diabetes mellitus without complications (3) HTN (hypertension) Code(s): I10 - ESSENTIAL (PRIMARY) HYPERTENSION Qualifiers: Hypertension type: essential hypertension Qualified Code(s): I10 - Essential (primary) hypertension (4) Hyperlipidemia LDL goal < 100 Code(s): E78.5 - HYPERLIPIDEMIA, UNSPECIFIED (5) Shortness of breath Code(s): R06.02 - SHORTNESS OF BREATH (6) Acute on chronic diastolic (congestive) heart failure Code(s): I50.33 - ACUTE ON CHRONIC DIASTOLIC (CONGESTIVE) HEART FAILURE (7) Acute on chronic respiratory failure with hypoxia and hypercapnia Code(s): J96.21 - ACUTE AND CHRONIC RESPIRATORY FAILURE WITH HYPOXIA J96.22 - ACUTE AND CHRONIC RESPIRATORY FAILURE WITH HYPERCAPNIA (8) [id number] kidney injury Code(s): N17.9 - ACUTE KIDNEY FAILURE, UNSPECIFIED N18.9 - CHRONIC KIDNEY DISEASE, UNSPECIFIED (9) Anemia Code(s): D64.9 - ANEMIA, UNSPECIFIED Qualifiers: Anemia type: unspecified type Qualified Code(s): D64.9 - Anemia, unspecified (10) COPD (chronic obstructive pulmonary disease) Code(s): J44.9 - CHRONIC OBSTRUCTIVE PULMONARY DISEASE, UNSPECIFIED Qualifiers : COPD type: chronic bronchitis (11) Pneumonia Code(s): J18.9 - PNEUMONIA, UNSPECIFIED ORGANISM Qualifiers: Pneumonia type: due to unspecified organism Laterality: right Lung location: lower lobe of lung Qualified Code(s): J18.1 - Lobar pneumonia, unspecified organism Assessment/Plan 1. Acute on chronic LV diastolic heart failure 2. COPD with chronic hypoxic respiratory failure 3. Insulin-dependent type 2 diabetes mellitus 4. Hypercholesterolemia 5. Anemia 6. CKD 7. HTN PLAN: 1. Lasix PO with monitoring renal function and electrolytes - may use IV as needed 2. Continue ASA 81 mg QD, Lopid 600 mg BID, Cardizem CD 120 mg QD, Cozaar 25 mg QD and Hytrin 5 mg QHS 3. Bronchodilator, O2 to keep SpO2 >90%, IV steroid, Daliresp and compression therapy at the discretion of pulmonary service 4. DVT and GI prophylaxix 5. Eventually pulmonary rehab at the discretion of Pulmonary service Further plans are to follow Nicholas Silver MD
--- NOTE | 2016-11-29 16:52 | PN ---
Progress Note, Physician History of Present Illness: Pt seen and examined at bedside. He is agitated today. He is ambulating without difficulty. - Current Medication List Current Medications: Active Medications Acetaminophen (Tylenol -) 650 mg PO Q6H PRN PRN Reason: FEVER OR PAIN Albuterol/Ipratropium (Duoneb -) 1 amp NEB QIDR [facility] Last Admin: 11/29/16 11:13 Dose: 1 amp Allopurinol (Zyloprim -) 100 mg PO DAILY [facility] Last Admin: 11/29/16 09:51 Dose: 100 mg Aspirin (Asa -) 81 mg PO Q2D@1000 [facility] Last Admin: 11/28/16 09:25 Dose: 81 mg Budesonide/Formoterol Fumarate (Symbicort 160/4.5mcg -) 2 puff IH BID [facility] Last Admin: 11/29/16 09:54 Dose: 2 puff Diltiazem HCl (Cardizem Cd -) 120 mg PO DAILY [facility] Last Admin: 11/29/16 09:53 Dose: 120 mg Docusate Sodium (Colace -) 100 mg PO HS [facility] Fentanyl (Duragesic 75mcg Patch -) 1 patch TD Q72H [facility] Last Admin: 11/26/16 23:16 Dose: Not Given Ferrous Sulfate (Feosol -) 325 mg PO BID [facility] Last Admin: 11/29/16 09:52 Dose: 325 mg Furosemide (Lasix -) 60 mg PO BID@0600,1400 [facility] Last Admin: 11/29/16 14:05 Dose: 60 mg Gemfibrozil (Lopid -) 600 mg PO BIDAC [facility] Last Admin: 11/29/16 06:40 Dose: 600 mg Heparin Sodium (Porcine) (Heparin -) 5,000 unit SQ BID [facility] Last Admin: 11/29/16 09:53 Dose: 5,000 unit Hydromorphone HCl (Dilaudid Injection -) 2 mg IVPB HS [facility] Insulin Aspart (Novolog Vial Sliding Scale -) 1 vial SQ ACHS [facility] PRN Reason: Protocol Last Admin: 11/29/16 13:13 Dose: Not Given Insulin Aspart (Novolog Mix 70/30 Vial) 30 units SQ BIDAC [facility] Last Admin: 11/29/16 06:40 Dose: 30 unit Lactulose (Cephulac (Oral Use)) 10 gm PO DAILY [facility] Last Admin: 11/29/16 09:52 Dose: 10 gm Losartan Potassium (Cozaar -) 25 mg PO DAILY [facility] Last Admin: 11/29/16 09:52 Dose: 25 mg Methylnaltrexone [place] (Relistor -) 12 mg SQ DAILY [facility] Last Admin: 11/29/16 10:03 Dose: 12 mg Metoclopramide HCl (Reglan -) 5 mg PO TIDAC [facility] Last Admin: 11/29/16 13:13 Dose: Not Given Miscellaneous (Duragesic Patch Waste) 1 each TD PRN PRN Prednisone (Deltasone -) 30 mg PO BID [facility] Last Admin: 11/29/16 09:51 Dose: 30 mg Ranitidine HCl (Zantac -) 300 mg PO DAILY [facility] Last Admin: 11/29/16 09:52 Dose: 300 mg Roflumilast (Daliresp -) 500 mcg PO DAILY [facility] Last Admin: 11/29/16 10:03 Dose: 500 mcg Senna (Senna -) 2 tab PO HS PRN PRN Reason: CONSTIPATION Sitagliptin Phosphate (Januvia -) 25 mg PO DAILY@0700 [facility] Last Admin: 11/29/16 06:40 Dose: 25 mg Sodium Chloride ([place] Nasal [place] -) 2 spray NS BID PRN PRN Reason: NASAL CONGESTION Tamsulosin HCl (Flomax -) 0.4 mg PO BID [facility] Last Admin: 11/29/16 09:51 Dose: 0.4 mg Terazosin HCl (Hytrin -) 5 mg PO HS [facility] Last Admin: 11/28/16 22:26 Dose: 5 mg - Objective Vital Signs: Vital Signs Temperature 98.8 F 11/29/16 14:51 Pulse Rate 92 H 11/29/16 14:51 Respiratory Rate 20 11/29/16 14:51 Blood Pressure 132/82 11/29/16 10:00 O2 Sat by Pulse Oximetry (%) 97 11/28/16 21:00 Constitutional: Yes: Other (agitated) HENT: Yes: Atraumatic Cardiovascular: Yes: S1, S2 Respiratory: Yes: Wheezes Gastrointestinal: Yes: Soft, Abdomen, Obese Genitourinary: Yes: WNL Musculoskeletal: Yes: WNL Edema: Yes Edema: LLE: 1+, RLE: 1+ Neurological: Yes: Oriented Psychiatric: Yes: Oriented Labs: CBC, BMP 11/26/16 06:30 11/28/16 06:00 INR, PTT INR 0.96 (0.82-1.09) 11/22/16 17:00 Problem List - Problems (1) Cough Code(s): R05 - COUGH (2) Diabetes mellitus, insulin dependent (IDDM), uncontrolled Code(s): E10.65 - TYPE 1 DIABETES MELLITUS WITH HYPERGLYCEMIA Qualifiers: Diabetes mellitus complication status: without complication Qualified Code(s): E10.9 - Type 1 diabetes mellitus without complications (3) HTN (hypertension) Code(s): I10 - ESSENTIAL (PRIMARY) HYPERTENSION Qualifiers: Hypertension type: essential hypertension Qualified Code(s): I10 - Essential (primary) hypertension (4) Shortness of breath Code(s): R06.02 - SHORTNESS OF BREATH (5) CHF (congestive heart failure) Code(s): I50.9 - HEART FAILURE, UNSPECIFIED Qualifiers: Congestive heart failure type: diastolic (6) CKD (chronic kidney disease) Code(s): N18.9 - CHRONIC KIDNEY DISEASE, UNSPECIFIED Qualifiers: Chronic kidney disease stage: unspecified stage Qualified Code(s): N18.9 - Chronic kidney disease, unspecified Assessment/Plan Current Medications Generic Name Dose Route Start Last Admin Trade Name Freq PRN Reason Stop Dose Admin Acetaminophen 650 mg 11/26/16 21:11 Tylenol - PO Q6H PRN FEVER OR PAIN Albuterol/Ipratropium 1 amp 11/29/16 12:00 11/29/16 11:13 Duoneb - NEB 1 amp QIDR JOSE LUIS Administration Allopurinol 100 mg 11/27/16 10:00 11/29/16 09:51 Zyloprim - PO 100 mg DAILY JOSE LUIS Administration Aspirin 81 mg 11/28/16 10:00 11/28/16 09:25 Asa - PO 81 mg Q2D@1000 JOSE LUIS Administration Budesonide/Formoterol Fumarate 2 puff 11/26/16 22:00 11/29/16 09:54 Symbicort 160/4.5mcg - IH 2 puff BID JOSE LUIS Administration Diltiazem HCl 120 mg 11/27/16 10:00 11/29/16 09:53 Cardizem Cd - PO 120 mg DAILY JOSE LUIS Administration Docusate Sodium 100 mg 11/29/16 22:00 Colace - PO HS JOSE LUIS Fentanyl 1 patch 11/26/16 21:15 11/26/16 23:16 Duragesic 75mcg Patch - TD Not Given Q72H [facility] Ferrous Sulfate 325 mg 11/26/16 22:00 11/29/16 09:52 Feosol - PO 325 mg BID JOSE LUIS Administration Furosemide 60 mg 11/28/16 09:46 11/29/16 14:05 Lasix - PO 60 mg BID@0600,1400 JOSE LUIS Administration Gemfibrozil 600 mg 11/27/16 07:00 11/29/16 06:40 Lopid - PO 600 mg BIDAC [facility] Administration Heparin Sodium (Porcine) 5,000 unit 11/27/16 22:00 11/29/16 09:53 Heparin - SQ 5,000 unit BID JOSE LUSI Administration Hydromorphone HCl 2 mg 11/29/16 22:00 Dilaudid Injection - IVPB HS [facility]SE [facility] Insulin Aspart 1 vial 11/23/16 20:53 11/29/16 13:13 Novolog Vial Sliding Scale - SQ Not Given ACHS [facility] Protocol Insulin Aspart 30 units 11/28/16 09:47 11/29/16 06:40 Novolog Mix 70/30 Vial SQ 30 unit BIDAC [facility] Administration Lactulose 10 gm 11/27/16 10:00 11/29/16 09:52 Cephulac (Oral Use) PO 10 gm DAILY [facility] Administration Losartan Potassium 25 mg 11/27/16 10:00 11/29/16 09:52 Cozaar - PO 25 mg DAILY [facility] Administration Methylnaltrexone [place] 12 mg 11/27/16 10:00 11/29/16 10:03 Relistor - SQ 12 mg DAILY [facility] Administration Metoclopramide HCl 5 mg 11/27/16 07:00 11/29/16 13:13 Reglan - PO Not Given TIDAC [facility] Miscellaneous 1 each 11/22/16 18:58 Duragesic Patch Waste TD PRN PRN Prednisone 30 mg 11/29/16 10:00 11/29/16 09:51 Deltasone - PO 30 mg BID JOSE LUIS Administration Ranitidine HCl 300 mg 11/27/16 10:00 11/29/16 09:52 Zantac - PO 300 mg DAILY JOSE LUIS Administration Roflumilast 500 mcg 11/27/16 10:00 11/29/16 10:03 Daliresp - PO 500 mcg DAILY JOSE LUIS Administration Senna 2 tab 11/26/16 21:16 Senna - PO HS PRN CONSTIPATION Sitagliptin Phosphate 25 mg 11/27/16 07:00 11/29/16 06:40 Januvia - PO 25 mg DAILY@0700 JOSE LUIS Administration Sodium Chloride 2 spray 11/26/16 21:17 [place] Nasal [place] - NS BID PRN NASAL CONGESTION Tamsulosin HCl 0.4 mg 11/26/16 22:00 11/29/16 09:51 Flomax - PO 0.4 mg BID JOSE LUIS Administration Terazosin HCl 5 mg 11/26/16 22:00 11/28/16 22:26 Hytrin - PO 5 mg HS JOSE LUIS Administration Impression 1. CKD 2. DM 3. HTN 4. CHF 5. COPD 6. fluid overload 7. BPH 8. insomnia 9. narcotic dependence Plan - cont lasix - check BMP - steroid with taper - discussed compliance with fluid and salt intake - cardiology input appreciated - cont with [facility] - will follow Dr Nathan
[2016-11-29] MEDS: fentaNYL 75mcg/hr PATCH.TD72 TD SCH (21:49)
[2016-11-29] MEDS: DOCUSATE SODIUM 100 MG CAPSULE (FP) PO SCH (22:06)
[2016-11-29] MEDS: TERAZOSIN HCL 5 MG CAPSULE PO SCH (22:08)
[2016-11-29] MEDS ORDERED: diphenhydrAMINE HCL 25 MG CAPSULE (FP) PO PRN (23:46)
[2016-11-30] MEDS: ALBUTEROL SO4 2.5/IPRATROPIUM 0.5 INH SOL 3 ML VIAL.NEB. NEB SCH ×4 (06:04→23:56)
[2016-11-30] MEDS: FUROSEMIDE 40 MG TABLET (FP) PO SCH ×2 (06:22→14:39)
[2016-11-30] MEDS: sitaGLIPtin PHOSPHATE 25 MG TABLET (FP) PO SCH (06:23)
[2016-11-30] MEDS: GEMFIBROZIL 600 MG TABLET (FP) PO SCH ×2 (06:23→16:44)
[2016-11-30] MEDS: INSULIN SLIDING SCALE (NOVOLOG) 1 VIAL SQ SCH ×4 (06:31→22:16)
[2016-11-30] MEDS: INSULIN (NOVOLOG MIX 70/30) 100 UNITS/ML MDV SQ SCH ×2 (06:31→16:45)
[2016-11-30] MEDS: METOCLOPRAMIDE HCL 10 MG TABLET (FP) PO SCH ×3 (06:32→16:44)
[2016-11-30 09:15] LABS: CALCIUM 8.6 mg/dL (8.5-10.1); CREATININE 2.5 mg/dL (0.7-1.3)
[2016-11-30] MEDS: FERROUS SO4 325 MG TABLET (FP) PO SCH ×2 (09:23→22:19)
[2016-11-30] MEDS: RANITIDINE HCL 150 MG TABLET (FP) PO SCH (09:23)
[2016-11-30] MEDS: predniSONE 10 MG TABLET (UD) PO SCH (09:23)
[2016-11-30] MEDS: ALLOPURINOL 100 MG TABLET (FP) PO SCH (09:23)
[2016-11-30] MEDS: TAMSULOSIN HCL 0.4 MG CAP.ER.24H (FP) PO SCH ×2 (09:24→22:19)
[2016-11-30] MEDS: LACTULOSE 20 GM/30 ML UDC (FOR ORAL USE ONLY) PO SCH (09:24)
[2016-11-30] MEDS: HEPARIN NA (PORCINE) 5,000 UNITS/ML 1ML VIAL SQ SCH ×2 (09:24→22:27)
[2016-11-30] MEDS: ASPIRIN 81 MG CHEWABLE TABLETS PO SCH (09:24)
[2016-11-30] MEDS: LOSARTAN POTASSIUM 25 MG TABLET PO SCH (09:24)
[2016-11-30] MEDS: BUDESONIDE/FORMETEROL FUMARATE 160/4.5 mcg INHALER IH SCH ×2 (09:25→22:27)
[2016-11-30] MEDS ORDERED: PT OWN MED DRAWER 7, Y5N ONE (09:27)
[2016-11-30] MEDS: ROFLUMILAST 500 MCG TABLET PO SCH (09:28)
[2016-11-30] MEDS: Methylnaltrexone Bromide 12 MG/0.6 ML KIT SQ SCH (09:28)
--- NOTE | 2016-11-30 11:33 | PN ---
Progress Note (short form) - Note Progress Note: PULMONARY VSS/AFEBRILE HARSH COUGH CONTINUES UPSET ABOUT DE-ESCALATION OF PAIN MEDS ANICTERIC SCATTERED RHONCHI S1S2 BS+ OBESE LESS LOWER EXT EDEMA LABS/MEDS/NOTES/IMAGING/MICRO REVIEWED RESOLVING ACUTE EXACERBATION COPD CHRONIC HYPOXEMIC RESP FAILURE DM HTN CKD HAVE REDUCED PREDNISONE TO 20MG BID D/C SPIRIVA CONSIDER PAIN MANAGEMENT EVALUATION SHOULD HAVE NIVPPV AT HOME Jered VALE MD
[2016-11-30] MEDS ORDERED: INSULIN (NOVOLOG) ASPART 100 UNITS/ML 10ML VIAL ONE (12:37)
--- NOTE | 2016-11-30 14:10 | PN ---
Progress Note, Physician Chief Complaint: upset about cutting down pain meds - Current Medication List Current Medications: Active Medications Acetaminophen (Tylenol -) 650 mg PO Q6H PRN PRN Reason: FEVER OR PAIN Albuterol/Ipratropium (Duoneb -) 1 amp NEB QIDR [facility] Last Admin: 11/30/16 11:32 Dose: 1 amp Allopurinol (Zyloprim -) 100 mg PO DAILY [facility] Last Admin: 11/30/16 09:23 Dose: 100 mg Aspirin (Asa -) 81 mg PO Q2D@1000 [facility] Last Admin: 11/30/16 09:24 Dose: 81 mg Budesonide/Formoterol Fumarate (Symbicort 160/4.5mcg -) 2 puff IH BID [facility] Last Admin: 11/30/16 09:25 Dose: 2 puff Diltiazem HCl (Cardizem Cd -) 120 mg PO DAILY [facility] Last Admin: 11/30/16 09:24 Dose: 120 mg Diphenhydramine HCl (Benadryl -) 25 mg PO Q4H PRN PRN Reason: ITCHING Last Admin: 11/30/16 00:05 Dose: 25 mg Docusate Sodium (Colace -) 100 mg PO HS [facility] Last Admin: 11/29/16 22:06 Dose: 100 mg Fentanyl (Duragesic 75mcg Patch -) 1 patch TD Q72H [facility] Last Admin: 11/29/16 21:49 Dose: 1 patch Ferrous Sulfate (Feosol -) 325 mg PO BID [facility] Last Admin: 11/30/16 09:23 Dose: 325 mg Furosemide (Lasix -) 60 mg PO BID@0600,1400 [facility] Last Admin: 11/30/16 06:22 Dose: 60 mg Gemfibrozil (Lopid -) 600 mg PO BIDAC [facility] Last Admin: 11/30/16 06:23 Dose: 600 mg Heparin Sodium (Porcine) (Heparin -) 5,000 unit SQ BID [facility] Last Admin: 11/30/16 09:24 Dose: 5,000 unit Hydromorphone HCl (Dilaudid Injection -) 2 mg IVPB HS [facility] Last Admin: 11/29/16 22:06 Dose: 2 mg Insulin Aspart (Novolog Vial Sliding Scale -) 1 vial SQ ACHS [facility] PRN Reason: Protocol Last Admin: 11/30/16 12:38 Dose: 5 units Insulin Aspart (Novolog Mix 70/30 Vial) 30 units SQ BIDAC [facility] Last Admin: 11/30/16 06:31 Dose: 30 unit Lactulose (Cephulac (Oral Use)) 10 gm PO DAILY [facility] Last Admin: 11/30/16 09:24 Dose: 10 gm Losartan Potassium (Cozaar -) 25 mg PO DAILY [facility] Last Admin: 11/30/16 09:24 Dose: 25 mg Methylnaltrexone [place] (Relistor -) 12 mg SQ DAILY [facility] Last Admin: 11/30/16 09:28 Dose: 12 mg Metoclopramide HCl (Reglan -) 5 mg PO TIDAC [facility] Last Admin: 11/30/16 12:39 Dose: 5 mg Miscellaneous (Duragesic Patch Waste) 1 each TD PRN PRN Last Admin: 11/29/16 22:00 Dose: 1 each Prednisone (Deltasone -) 20 mg PO BID [facility] Ranitidine HCl (Zantac -) 300 mg PO DAILY [facility] Last Admin: 11/30/16 09:23 Dose: 300 mg Roflumilast (Daliresp -) 500 mcg PO DAILY [facility] Last Admin: 11/30/16 09:28 Dose: 500 mcg Senna (Senna -) 2 tab PO HS PRN PRN Reason: CONSTIPATION Sitagliptin Phosphate (Januvia -) 25 mg PO DAILY@0700 [facility] Last Admin: 11/30/16 06:23 Dose: 25 mg Sodium Chloride ([place] Nasal [place] -) 2 spray NS BID PRN PRN Reason: NASAL CONGESTION Tamsulosin HCl (Flomax -) 0.4 mg PO BID [facility] Last Admin: 11/30/16 09:24 Dose: 0.4 mg Terazosin HCl (Hytrin -) 5 mg PO HS [facility] Last Admin: 11/29/16 22:08 Dose: 5 mg - Objective Vital Signs: Vital Signs Temperature 100 F H 11/30/16 09:00 Pulse Rate 105 H 11/30/16 09:00 Respiratory Rate 20 11/30/16 09:00 Blood Pressure 135/72 11/30/16 09:00 O2 Sat by Pulse Oximetry (%) 96 11/30/16 11:24 Constitutional: Yes: Calm Neck: Yes: Trachea Midline Cardiovascular: Yes: Regular Rate and Rhythm, S1, S2 Respiratory: Yes: Rhonchi (scattered) Gastrointestinal: Yes: Normal Bowel Sounds, Soft Edema: Yes Neurological: Yes: Alert, Oriented Labs: CBC, BMP 11/26/16 06:30 11/30/16 06:05 INR, PTT INR 0.96 (0.82-1.09) 11/22/16 17:00 Problem List - Problems (1) COPD (chronic obstructive pulmonary disease) Assessment/Plan: po steroids taper to bid bipap at night daliresp symbicrot stop spiriva pulm rehab needs bipap at home Code(s): J44.9 - CHRONIC OBSTRUCTIVE PULMONARY DISEASE, UNSPECIFIED Qualifiers : COPD type: chronic bronchitis (2) Acute on chronic diastolic (congestive) heart failure Assessment/Plan: po lasix continue other cardiac meds will monitor renal fucntion Code(s): I50.33 - ACUTE ON CHRONIC DIASTOLIC (CONGESTIVE) HEART FAILURE (3) BPH (benign prostatic hyperplasia) Assessment/Plan: flomax Code(s): N40.0 - BENIGN PROSTATIC HYPERPLASIA WITHOUT LOWER URINRY TRACT SYMP (4) Constipation due to opioid therapy Assessment/Plan: change to relistor Code(s): K59.09 - OTHER CONSTIPATION T40.2X5A - ADVERSE EFFECT OF OTHER OPIOIDS, INITIAL ENCOUNTER (5) Diabetes mellitus Assessment/Plan: bgm noted will improve as steroids are tapered Code(s): E11.9 - TYPE 2 DIABETES MELLITUS WITHOUT COMPLICATIONS Qualifiers: Diabetes mellitus type: type 2 Diabetes mellitus complication status: without complication 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
[2016-11-30] MEDS ORDERED: HYDROmorphone HCL CARPU-JECT 2 MG/1 ML DISP.SYRIN IVPB ONE (15:30)
--- NOTE | 2016-11-30 17:54 | PN ---
Progress Note, Physician History of Present Illness: Pt seen and examined at bedside. He is awake and appears comfortable. - Current Medication List Current Medications: Active Medications Acetaminophen (Tylenol -) 650 mg PO Q6H PRN PRN Reason: FEVER OR PAIN Albuterol/Ipratropium (Duoneb -) [address] [facility] Last Admin: 11/30/16 17:48 Dose: 1 amp Allopurinol (Zyloprim -) [address] [facility] Last Admin: 11/30/16 09:23 Dose: 100 mg Aspirin (Asa -) 81 mg PO Q2D@1000 [facility] Last Admin: 11/30/16 09:24 Dose: 81 mg Budesonide/Formoterol Fumarate (Symbicort 160/4.5mcg -) [address] [facility] Last Admin: 11/30/16 09:25 Dose: 2 puff Diltiazem HCl (Cardizem Cd -) [address] [facility] Last Admin: 11/30/16 09:24 Dose: 120 mg Diphenhydramine HCl (Benadryl -) 25 mg PO Q4H PRN PRN Reason: ITCHING Last Admin: 11/30/16 00:05 Dose: 25 mg Docusate Sodium (Colace -) [address] [facility] Last Admin: 11/29/16 22:06 Dose: 100 mg Fentanyl (Duragesic 75mcg Patch -) [address] [facility] Last Admin: 11/29/16 21:49 Dose: 1 patch Ferrous Sulfate (Feosol -) [address] [facility] Last Admin: 11/30/16 09:23 Dose: 325 mg Furosemide (Lasix -) 60 mg PO BID@0600,1400 [facility] Last Admin: 11/30/16 14:39 Dose: 60 mg Gemfibrozil (Lopid -) [address] [facility] Last Admin: 11/30/16 16:44 Dose: 600 mg Heparin Sodium (Porcine) (Heparin -) 5,[address] [facility] Last Admin: 11/30/16 09:24 Dose: 5,000 unit Hydromorphone HCl (Dilaudid Injection -) [address] [facility] Last Admin: 11/29/16 22:06 Dose: 2 mg Insulin Aspart (Novolog Vial Sliding Scale -) [address] [facility] PRN Reason: Protocol Last Admin: 11/30/16 16:44 Dose: 5 units Insulin Aspart (Novolog Mix 70/30 Vial) [address] [facility] Last Admin: 11/30/16 16:45 Dose: 30 unit Lactulose (Cephulac (Oral Use)) [address] [facility] Last Admin: 11/30/16 09:24 Dose: 10 gm Losartan Potassium (Cozaar -) [address] [facility] Last Admin: 11/30/16 09:24 Dose: 25 mg Methylnaltrexone [place] (Relistor -) [address] [facility] Last Admin: 11/30/16 09:28 Dose: 12 mg Metoclopramide HCl (Reglan -) [address] [facility] Last Admin: 11/30/16 16:44 Dose: 5 mg Miscellaneous (Duragesic Patch Waste) 1 each TD PRN PRN Last Admin: 11/29/16 22:00 Dose: 1 each Prednisone (Deltasone -) [address] [facility] Ranitidine HCl (Zantac -) [address] [facility] Last Admin: 11/30/16 09:23 Dose: 300 mg Roflumilast (Daliresp -) [address] [facility] Last Admin: 11/30/16 09:28 Dose: 500 mcg Senna (Senna -) 2 tab PO HS PRN PRN Reason: CONSTIPATION Sitagliptin Phosphate (Januvia -) 25 mg PO DAILY@0700 [facility] Last Admin: 11/30/16 06:23 Dose: 25 mg Sodium Chloride ([place] -) 2 spray NS BID PRN PRN Reason: NASAL CONGESTION Tamsulosin HCl (Flomax -) 0.[address] [facility] Last Admin: 11/30/16 09:24 Dose: 0.4 mg Terazosin HCl (Hytrin -) [address] [facility] Last Admin: 11/29/16 22:08 Dose: 5 mg - Objective Vital Signs: Vital Signs Temperature 98.4 F 11/30/16 14:50 Pulse Rate 98 H 11/30/16 14:50 Respiratory Rate 16 11/30/16 14:50 Blood Pressure 126/55 11/30/16 14:50 O2 Sat by Pulse Oximetry (%) 96 11/30/16 11:24 Constitutional: Yes: Calm Eyes: Yes: Conjunctiva Clear HENT: Yes: Atraumatic Neck: Yes: Supple Cardiovascular: Yes: S1, S2 Respiratory: Yes: CTA Bilaterally Gastrointestinal: Yes: Normal Bowel Sounds, Soft Genitourinary: Yes: WNL Musculoskeletal: Yes: WNL Edema: Yes Edema: LLE: 2+, RLE: 2+ Neurological: Yes: Oriented Psychiatric: Yes: Oriented Labs: CBC, BMP 11/26/16 06:30 11/30/16 06:05 INR, PTT INR 0.96 (0.82-1.09) 11/22/16 17:00 Problem List - Problems (1) Cough Code(s): R05 - COUGH (2) Diabetes mellitus, insulin dependent (IDDM), uncontrolled Code(s): E10.65 - TYPE 1 DIABETES MELLITUS WITH HYPERGLYCEMIA Qualifiers: Diabetes mellitus complication status: without complication Qualified Code(s): E10.9 - Type 1 diabetes mellitus without complications (3) HTN (hypertension) Code(s): I10 - ESSENTIAL (PRIMARY) HYPERTENSION Qualifiers: Hypertension type: essential hypertension Qualified Code(s): I10 - Essential (primary) hypertension (4) Shortness of breath Code(s): R06.02 - SHORTNESS OF BREATH (5) CHF (congestive heart failure) Code(s): I50.9 - HEART FAILURE, UNSPECIFIED Qualifiers: Congestive heart failure type: diastolic (6) CKD (chronic kidney disease) Code(s): N18.9 - CHRONIC KIDNEY DISEASE, UNSPECIFIED Qualifiers: Chronic kidney disease stage: unspecified stage Qualified Code(s): N18.9 - Chronic kidney disease, unspecified Assessment/Plan Current Medications Generic Name Dose Route Start Last Admin Trade Name Freq PRN Reason Stop Dose Admin Acetaminophen 650 mg 11/26/16 21:11 Tylenol - PO Q6H PRN FEVER OR PAIN Albuterol/Ipratropium 1 amp 11/29/16 12:00 11/30/16 17:48 Duoneb - NEB 1 amp QIDR [facility] Administration Allopurinol 100 mg 11/27/16 10:00 11/30/16 09:23 Zyloprim - PO 100 mg DAILY [facility] Administration Aspirin 81 mg 11/28/16 10:00 11/30/16 09:24 Asa - PO 81 mg Q2D@1000 [facility] Administration Budesonide/Formoterol Fumarate 2 puff 11/26/16 22:00 11/30/16 09:25 Symbicort 160/4.5mcg - IH 2 puff BID [facility] Administration Diltiazem HCl 120 mg 11/27/16 10:00 11/30/16 09:24 Cardizem Cd - PO 120 mg DAILY [facility] Administration Diphenhydramine HCl 25 mg 11/29/16 23:46 11/30/16 00:05 Benadryl - PO 25 mg Q4H PRN Administration ITCHING Docusate Sodium 100 mg 11/29/16 22:00 11/29/16 22:06 Colace - PO 100 mg HS [facility] Administration Fentanyl 1 patch 11/26/16 21:15 11/29/16 21:49 Duragesic 75mcg Patch - TD 1 patch Q72H [facility] Administration Ferrous Sulfate 325 mg 11/26/16 22:00 11/30/16 09:23 Feosol - PO 325 mg BID [facility] Administration Furosemide 60 mg 11/28/16 09:46 11/30/16 14:39 Lasix - PO 60 mg BID@0600,1400 [facility] Administration Gemfibrozil 600 mg 11/27/16 07:00 11/30/16 16:44 Lopid - PO 600 mg BIDAC [facility] Administration Heparin Sodium (Porcine) 5,000 unit 11/27/16 22:00 11/30/16 09:24 Heparin - SQ 5,000 unit BID [facility] Administration Hydromorphone HCl 2 mg 11/29/16 22:00 11/29/16 22:06 Dilaudid Injection - IVPB 2 mg HS [facility] Administration Insulin Aspart 1 vial 11/23/16 20:53 11/30/16 16:44 Novolog Vial Sliding Scale - SQ 5 units ACHS [facility] Administration Protocol Insulin Aspart 30 units 11/28/16 09:47 11/30/16 16:45 Novolog Mix 70/30 Vial SQ 30 unit BIDAC [facility] Administration Lactulose 10 gm 11/27/16 10:00 11/30/16 09:24 Cephulac (Oral Use) PO 10 gm DAILY [facility] Administration Losartan Potassium 25 mg 11/27/16 10:00 11/30/16 09:24 Cozaar - PO 25 mg DAILY [facility] Administration Methylnaltrexone [place] 12 mg 11/27/16 10:00 11/30/16 09:28 Relistor - SQ 12 mg DAILY [facility] Administration Metoclopramide HCl 5 mg 11/27/16 07:00 11/30/16 16:44 Reglan - PO 5 mg TIDAC [facility] Administration Miscellaneous 1 each 11/22/16 18:58 11/29/16 22:00 Duragesic Patch Waste TD 1 each PRN PRN Administration Prednisone 20 mg 11/30/16 22:00 Deltasone - PO BID [facility] Ranitidine HCl 300 mg 11/27/16 10:00 11/30/16 09:23 Zantac - PO 300 mg DAILY [facility] Administration Roflumilast 500 mcg 11/27/16 10:00 11/30/16 09:28 Daliresp - PO 500 mcg DAILY [facility] Administration Senna 2 tab 11/26/16 21:16 Senna - PO HS PRN CONSTIPATION Sitagliptin Phosphate 25 mg 11/27/16 07:00 11/30/16 06:23 Januvia - PO 25 mg DAILY@0700 [facility] Administration Sodium Chloride 2 spray 11/26/16 21:17 [place] Nasal [place] - NS BID PRN NASAL CONGESTION Tamsulosin HCl 0.4 mg 11/26/16 22:00 11/30/16 09:24 Flomax - PO 0.4 mg BID [facility] Administration Terazosin HCl 5 mg 11/26/16 22:00 11/29/16 22:08 Hytrin - PO 5 mg HS [facility] Administration Impression 1. CKD 2. DM 3. HTN 4. CHF 5. COPD 6. fluid overload 7. BPH 8. insomnia 9. narcotic dependence Plan - creatinine is higher than baseline - cont with lasix - monitor renal function - steroid with taper - discussed compliance with fluid and salt intake - cont with ARB - no acute change in management - will follow Dr Nathan
[2016-11-30] MEDS: predniSONE 20 MG TABLET (UD) PO SCH (22:19)
[2016-11-30] MEDS: DOCUSATE SODIUM 100 MG CAPSULE (FP) PO SCH (22:19)
[2016-11-30] MEDS: TERAZOSIN HCL 5 MG CAPSULE PO SCH (22:19)
[2016-11-30] MEDS: HYDROmorphone HCL CARPU-JECT 2 MG/1 ML DISP.SYRIN IVPB SCH (22:26)
[2016-12-01] MEDS: ALBUTEROL SO4 2.5/IPRATROPIUM 0.5 INH SOL 3 ML VIAL.NEB. NEB SCH ×2 (06:20→12:01)
[2016-12-01] MEDS: FUROSEMIDE 40 MG TABLET (FP) PO SCH (06:24)
[2016-12-01] MEDS: GEMFIBROZIL 600 MG TABLET (FP) PO SCH (06:24)
[2016-12-01] MEDS: sitaGLIPtin PHOSPHATE 25 MG TABLET (FP) PO SCH (06:24)
[2016-12-01] MEDS: INSULIN (NOVOLOG MIX 70/30) 100 UNITS/ML MDV SQ SCH (06:24)
[2016-12-01] MEDS: METOCLOPRAMIDE HCL 10 MG TABLET (FP) PO SCH ×2 (06:25→12:14)
[2016-12-01] MEDS: INSULIN SLIDING SCALE (NOVOLOG) 1 VIAL SQ SCH ×2 (06:25→12:12)
[2016-12-01 06:50] VITALS: PULSE 100
[2016-12-01 09:38] LABS: BASOPHIL 0.2 % (0-2.0); MCH 29.7 pg (25.7-33.7); MCHC 32.3 g/dl (32.0-35.9); MEAN CELL VOLUME 91.7 fl (80-96); MEAN PLT VOLUME 9.9 fl (7.5-11.1); NEUTROPHILS 83.6 % (42.8-82.8); PLATELET COUNT 164 K/MM3 (134-434); RDW 17.1 % (11.9-15.9); WHITE BLOOD COUNT 11.2 K/mm3 (4.0-10.0)
[2016-12-01 10:00] LABS: ALBUMIN 3.6 g/dl (3.4-5.0); CALCIUM 8.8 mg/dL (8.5-10.1); CREATININE 2.5 mg/dL (0.7-1.3)
[2016-12-01 10:01] LABS: BILIRUBIN,TOTAL 0.3 mg/dL (0.2-1.0); TOT PROT 6.6 g/dl (6.4-8.2)
[2016-12-01] MEDS ORDERED: PT OWN MED DRAWER 7, Y5N ONE (10:05)
[2016-12-01] MEDS: LOSARTAN POTASSIUM 25 MG TABLET PO SCH (10:13)
[2016-12-01] MEDS: LACTULOSE 20 GM/30 ML UDC (FOR ORAL USE ONLY) PO SCH (10:13)
--- NOTE | 2016-12-01 10:13 | DS ---
Physical Examination Vital Signs: Vital Signs Temperature 98.4 F 12/01/16 06:00 Pulse Rate 100 H 12/01/16 06:00 Respiratory Rate 20 12/01/16 06:00 Blood Pressure 140/87 12/01/16 06:00 O2 Sat by Pulse Oximetry (%) 97 11/30/16 21:00 Cardiovascular: Yes: Regular Rate and Rhythm Respiratory: Yes: Rhonchi Gastrointestinal: Yes: Normal Bowel Sounds, Soft Edema: Yes (IMPROVED) Labs: CBC, BMP 12/01/16 09:00 12/01/16 09:00 Discharge Summary Reason For Visit: SHORTNESS OF BREATH Current Active Problems [place] (Acute) Cough (Acute) Diabetes mellitus, insulin dependent (IDDM), uncontrolled (Acute) HTN (hypertension) (Acute) Hyperlipidemia LDL goal < 100 (Acute) Hypertriglyceridemia (Acute) Shortness of breath (Acute) Tachycardia (Acute) Wheeze (Acute) Hospital Course: - Problems (1) COPD (chronic obstructive pulmonary disease) Assessment/Plan: po steroids taper to bid bipap at night daliresp symbicrot stop spiriva pulm rehab needs bipap at home Code(s): J44.9 - CHRONIC OBSTRUCTIVE PULMONARY DISEASE, UNSPECIFIED Qualifiers : COPD type: chronic bronchitis (2) Acute on chronic diastolic (congestive) heart failure Assessment/Plan: po lasix continue other cardiac meds will monitor renal fucntion Code(s): I50.33 - ACUTE ON CHRONIC DIASTOLIC (CONGESTIVE) HEART FAILURE (3) BPH (benign prostatic hyperplasia) Assessment/Plan: flomax Code(s): N40.0 - BENIGN PROSTATIC HYPERPLASIA WITHOUT LOWER URINRY TRACT SYMP (4) Constipation due to opioid therapy Assessment/Plan: change to relistor Code(s): K59.09 - OTHER CONSTIPATION T40.2X5A - ADVERSE EFFECT OF OTHER OPIOIDS, INITIAL ENCOUNTER (5) Diabetes mellitus Assessment/Plan: bgm noted will improve as steroids are tapered Code(s): E11.9 - TYPE 2 DIABETES MELLITUS WITHOUT COMPLICATIONS Qualifiers: Diabetes mellitus type: type 2 Diabetes mellitus complication status: without complication Diabetes mellitus snf insulin use: with snf use Qualified Code(s): E11.9 - Type 2 diabetes mellitus without complications (6) Hyperlipidemia LDL goal < 100 Assessment/Plan: lopid Code(s): E78.5 - HYPERLIPIDEMIA, UNSPECIFIED (7) Chronic back pain greater than 3 months duration Assessment/Plan: fentanyl patch pain eval Code(s): M54.9 - DORSALGIA, UNSPECIFIED G89.29 - OTHER CHRONIC PAIN Condition: Improved - Instructions Diet, Activity, Other Instructions: bipap at home Referrals: Misti Crenshaw MD [Primary Care Provider] - 1 Week Disposition: HOME - Home Medications Comprehensive Discharge Medication List: Ambulatory Orders Aspirin [ASA -] 81 mg PO Q2D@1000 #30 tab.chew 12/27/14 Gemfibrozil [Lopid -] 600 mg PO BID #180 tablet 12/27/14 Terazosin HCl [Hytrin -] 5 mg PO HS #30 capsule 12/27/14 Cyanocobalamin [Vitamin B12 -] 1 g PO DAILY 12/19/15 Lactulose 10 gm PO DAILY 12/20/15 Iron 325 mg PO BID 02/22/16 Tamsulosin HCl [Flomax -] 0.4 mg PO BID 02/22/16 FENTANYL 75mcg PATCH [DURAGESIC 75mcg PATCH -] 1 patch TD Q72H 02/23/16 Albuterol Sulfate Inhaler - [Ventolin HFA Inhaler -] 1 - 2 inh PO Q4H #1 inhaler 03/11/16 Docusate Sodium [Colace -] 100 mg PO BID #60 capsule 03/11/16 Diltiazem Cd [Cardizem Cd -] 120 mg PO DAILY 05/05/16 Naloxegol Oxalate [Movantik] 25 mg PO DAILY PRN 05/05/16 Sitagliptin Phosphate [Januvia] 25 mg PO DAILY 05/05/16 Metoclopramide HCl [Reglan -] 5 mg PO TIDAC tablet 05/09/16 Sennosides [Senna -] 2 tab PO HS PRN #0 tablet 05/09/16 Allopurinol [Zyloprim -] 100 mg PO DAILY 09/28/16 Ranitidine HCl 300 mg PO DAILY 09/28/16 Sennosides [Senokot] 8.6 mg PO DAILY 09/28/16 Acetaminophen [Tylenol .Regular Strength -] 650 mg PO Q6H PRN #0 tablet Budesonide/Formeterol Fumarate [SYMBICORT 160/4.5mcg -] 2 puff IH BID #1 inhaler 10/07/16 Insulin Aspart Prot/Insuln Asp [Novolog Mix 70-30 Flexpen Syrn] 32 unit SQ BID # 1 box 10/07/16 Losartan Potassium [Cozaar -] 25 mg PO DAILY #30 tablet 10/07/16 Roflumilast [Daliresp -] 500 mcg PO DAILY #30 tablet 10/07/16 Sodium Chloride Nasal [place] [[place] Nasal [place] -] 2 spray NS BID PRN #1 bottle 10/07/16 Oxycodone HCl [Roxicodone] 15 mg PO Q4HWA PRN 11/22/16 Albuterol 2.5/Ipratropium 0.5 [Duoneb -] 1 amp NEB QIDR amp 12/01/16 Furosemide [Lasix -] 60 mg PO BID@0600,1400 tablet 12/01/16 Prednisone [Deltasone -] 20 mg PO BID #60 tablet 12/01/16
[2016-12-01] MEDS: ROFLUMILAST 500 MCG TABLET PO SCH (10:14)
[2016-12-01] MEDS: TAMSULOSIN HCL 0.4 MG CAP.ER.24H (FP) PO SCH (10:15)
[2016-12-01] MEDS: predniSONE 20 MG TABLET (UD) PO SCH (10:15)
[2016-12-01] MEDS: HEPARIN NA (PORCINE) 5,000 UNITS/ML 1ML VIAL SQ SCH (10:15)
[2016-12-01] MEDS: Methylnaltrexone Bromide 12 MG/0.6 ML KIT SQ SCH (10:16)
[2016-12-01] MEDS: RANITIDINE HCL 150 MG TABLET (FP) PO SCH (10:17)
[2016-12-01] MEDS: BUDESONIDE/FORMETEROL FUMARATE 160/4.5 mcg INHALER IH SCH (10:17)
[2016-12-01] MEDS: ALLOPURINOL 100 MG TABLET (FP) PO SCH (10:17)
[2016-12-01] MEDS: FERROUS SO4 325 MG TABLET (FP) PO SCH (10:19)
--- NOTE | 2016-12-01 11:14 | PN ---
Progress Note (short form) - Note Progress Note: Breathing appears at baseline. No acute events overnight. Chronic bronchitis. Intake & Output 11/28/16 11/29/16 11/30/16 12/01/16 23:59 23:59 23:59 23:59 Intake Total 1550 1340 740 Output Total 700 Balance 1550 640 740 Weight 245 lb 9.6 oz 246 lb 1.6 oz 241 lb 11.2 oz 244 lb 1.6 oz Last Vital Signs Temp Pulse Resp BP Pulse Ox 98.4 F 100 H 20 140/87 97 12/01/16 06:00 12/01/16 06:00 12/01/16 06:00 12/01/16 06:00 11/30/16 21:00 Active Medications Acetaminophen (Tylenol -) 650 mg PO Q6H PRN PRN Reason: FEVER OR PAIN Albuterol/Ipratropium (Duoneb -) 1 amp NEB QIDR [facility] Last Admin: 12/01/16 06:20 Dose: 1 amp Allopurinol (Zyloprim -) 100 mg PO DAILY [facility] Last Admin: 12/01/16 10:17 Dose: 100 mg Aspirin (Asa -) 81 mg PO Q2D@1000 [facility] Last Admin: 11/30/16 09:24 Dose: 81 mg Budesonide/Formoterol Fumarate (Symbicort 160/4.5mcg -) 2 puff IH BID [facility] Last Admin: 12/01/16 10:17 Dose: 2 puff Diltiazem HCl (Cardizem Cd -) 120 mg PO DAILY [facility] Last Admin: 12/01/16 10:12 Dose: 120 mg Diphenhydramine HCl (Benadryl -) 25 mg PO Q4H PRN PRN Reason: ITCHING Last Admin: 11/30/16 00:05 Dose: 25 mg Docusate Sodium (Colace -) 100 mg PO HS [facility] Last Admin: 11/30/16 22:19 Dose: 100 mg Fentanyl (Duragesic 75mcg Patch -) 1 patch TD Q72H [facility] Last Admin: 11/29/16 21:49 Dose: 1 patch Ferrous Sulfate (Feosol -) 325 mg PO BID [facility] Last Admin: 12/01/16 10:19 Dose: 325 mg Furosemide (Lasix -) 60 mg PO BID@0600,1400 [facility] Last Admin: 12/01/16 06:24 Dose: 60 mg Gemfibrozil (Lopid -) 600 mg PO BIDAC [facility] Last Admin: 12/01/16 06:24 Dose: 600 mg Heparin Sodium (Porcine) (Heparin -) 5,000 unit SQ BID [facility] Last Admin: 12/01/16 10:15 Dose: 5,000 unit Hydromorphone HCl (Dilaudid Injection -) 2 mg IVPB HS [facility] Last Admin: 11/30/16 22:26 Dose: 2 mg Insulin Aspart (Novolog Vial Sliding Scale -) 1 vial SQ ACHS [facility] PRN Reason: Protocol Last Admin: 12/01/16 06:25 Dose: 9 units Insulin Aspart (Novolog Mix 70/30 Vial) 30 units SQ BIDAC [facility] Last Admin: 12/01/16 06:24 Dose: 30 unit Lactulose (Cephulac (Oral Use)) 10 gm PO DAILY [facility] Last Admin: 12/01/16 10:13 Dose: 10 gm Losartan Potassium (Cozaar -) 25 mg PO DAILY [facility] Last Admin: 12/01/16 10:13 Dose: 25 mg Methylnaltrexone [place] (Relistor -) 12 mg SQ DAILY [facility] Last Admin: 12/01/16 10:16 Dose: 12 mg Metoclopramide HCl (Reglan -) 5 mg PO TIDAC [facility] Last Admin: 12/01/16 06:25 Dose: 5 mg Miscellaneous (Duragesic Patch Waste) 1 each TD PRN PRN Last Admin: 11/29/16 22:00 Dose: 1 each Prednisone (Deltasone -) 20 mg PO BID [facility] Last Admin: 12/01/16 10:15 Dose: 20 mg Ranitidine HCl (Zantac -) 300 mg PO DAILY [facility] Last Admin: 12/01/16 10:17 Dose: 300 mg Roflumilast (Daliresp -) 500 mcg PO DAILY [facility] Last Admin: 12/01/16 10:14 Dose: 500 mcg Senna (Senna -) 2 tab PO HS PRN PRN Reason: CONSTIPATION Sitagliptin Phosphate (Januvia -) 25 mg PO DAILY@0700 [facility] Last Admin: 12/01/16 06:24 Dose: 25 mg Sodium Chloride ([place] Nasal [place] -) 2 spray NS BID PRN PRN Reason: NASAL CONGESTION Tamsulosin HCl (Flomax -) 0.4 mg PO BID [facility] Last Admin: 12/01/16 10:15 Dose: 0.4 mg Terazosin HCl (Hytrin -) 5 mg PO HS [facility] Last Admin: 11/30/16 22:19 Dose: 5 mg Gen: NAD Heart: RRR Lung: scattered bilateral rhonchi Abd: soft, nontender Ext: + edema Laboratory Results - last 24 hr 11/30/16 11/30/16 11/30/16 11:54 16:37 22:15 WBC RBC Hgb Hct MCV MCHC RDW Plt Count MPV Neutrophils % Lymphocytes % Monocytes % Eosinophils % Basophils % Sodium Potassium Chloride Carbon Dioxide Anion Gap BUN Creatinine Creat Clearance w eGFR POC Glucometer 203 223 156 Random Glucose Calcium Total Bilirubin AST ALT Alkaline Phosphatase Total Protein Albumin 12/01/16 12/01/16 12/01/16 06:17 09:00 09:00 WBC 11.2 H RBC 3.20 L Hgb 9.5 L Hct 29.3 L MCV 91.7 MCHC 32.3 RDW 17.1 H Plt Count 164 MPV 9.9 Neutrophils % 83.6 H Lymphocytes % 8.6 D Monocytes % 7.6 D Eosinophils % 0.0 Basophils % 0.2 Sodium Cancelled Potassium Cancelled Chloride Cancelled Carbon Dioxide Cancelled Anion Gap Cancelled BUN Cancelled Creatinine Cancelled Creat Clearance w eGFR POC Glucometer 333 Random Glucose Cancelled Calcium Cancelled Total Bilirubin AST ALT Alkaline Phosphatase Total Protein Albumin 12/01/16 09:00 WBC RBC Hgb Hct MCV MCHC RDW Plt Count MPV Neutrophils % Lymphocytes % Monocytes % Eosinophils % Basophils % Sodium 142 Potassium 4.4 Chloride 98 Carbon Dioxide 30 Anion Gap 14 BUN 88 H Creatinine 2.5 H Creat Clearance w eGFR 25.51 POC Glucometer Random Glucose 137 H D Calcium 8.8 Total Bilirubin 0.3 AST 15 D ALT 23 D Alkaline Phosphatase 38 L Total Protein 6.6 Albumin 3.6 A/P Acute COPD Exacerbation Chronic Hypoxic Respiratory Failure CHF HTN DM CKD Prednisone taper BD [place] Lasix D/C Dr Amaral
[2016-12-01 11:19] VITALS: BP 135/94; TEMP 98.2
--- NOTE | 2016-12-01 13:00 | PN ---
Progress Note, Physician History of Present Illness: Renal f/u Pt for discharge today Azotemia is stable with high BUN to Cr ratio on steroids and lasix - Current Medication List Current Medications: Active Medications Acetaminophen (Tylenol -) 650 mg PO Q6H PRN PRN Reason: FEVER OR PAIN Albuterol/Ipratropium (Duoneb -) 1 amp NEB QIDR [facility] Last Admin: 12/01/16 12:01 Dose: Not Given Allopurinol (Zyloprim -) 100 mg PO DAILY [facility] Last Admin: 12/01/16 10:17 Dose: 100 mg Aspirin (Asa -) 81 mg PO Q2D@1000 [facility] Last Admin: 11/30/16 09:24 Dose: 81 mg Budesonide/Formoterol Fumarate (Symbicort 160/4.5mcg -) 2 puff IH BID [facility] Last Admin: 12/01/16 10:17 Dose: 2 puff Diltiazem HCl (Cardizem Cd -) 120 mg PO DAILY [facility] Last Admin: 12/01/16 10:12 Dose: 120 mg Diphenhydramine HCl (Benadryl -) 25 mg PO Q4H PRN PRN Reason: ITCHING Last Admin: 11/30/16 00:05 Dose: 25 mg Docusate Sodium (Colace -) 100 mg PO HS [facility] Last Admin: 11/30/16 22:19 Dose: 100 mg Fentanyl (Duragesic 75mcg Patch -) 1 patch TD Q72H [facility] Last Admin: 11/29/16 21:49 Dose: 1 patch Ferrous Sulfate (Feosol -) 325 mg PO BID [facility] Last Admin: 12/01/16 10:19 Dose: 325 mg Furosemide (Lasix -) 60 mg PO BID@0600,1400 [facility] Last Admin: 12/01/16 06:24 Dose: 60 mg Gemfibrozil (Lopid -) 600 mg PO BIDAC [facility] Last Admin: 12/01/16 06:24 Dose: 600 mg Heparin Sodium (Porcine) (Heparin -) 5,000 unit SQ BID [facility] Last Admin: 12/01/16 10:15 Dose: 5,000 unit Hydromorphone HCl (Dilaudid Injection -) 2 mg IVPB HS [facility] Last Admin: 11/30/16 22:26 Dose: 2 mg Insulin Aspart (Novolog Vial Sliding Scale -) 1 vial SQ ACHS [facility] PRN Reason: Protocol Last Admin: 12/01/16 12:12 Dose: Not Given Insulin Aspart (Novolog Mix 70/30 Vial) 30 units SQ BIDAC [facility] Last Admin: 12/01/16 06:24 Dose: 30 unit Lactulose (Cephulac (Oral Use)) 10 gm PO DAILY [facility] Last Admin: 12/01/16 10:13 Dose: 10 gm Losartan Potassium (Cozaar -) 25 mg PO DAILY [facility] Last Admin: 12/01/16 10:13 Dose: 25 mg Methylnaltrexone [place] (Relistor -) 12 mg SQ DAILY [facility] Last Admin: 12/01/16 10:16 Dose: 12 mg Metoclopramide HCl (Reglan -) 5 mg PO TIDAC [facility] Last Admin: 12/01/16 12:14 Dose: 5 mg Miscellaneous (Duragesic Patch Waste) 1 each TD PRN PRN Last Admin: 11/29/16 22:00 Dose: 1 each Prednisone (Deltasone -) 20 mg PO BID [facility] Last Admin: 12/01/16 10:15 Dose: 20 mg Ranitidine HCl (Zantac -) 300 mg PO DAILY [facility] Last Admin: 12/01/16 10:17 Dose: 300 mg Roflumilast (Daliresp -) 500 mcg PO DAILY [facility] Last Admin: 12/01/16 10:14 Dose: 500 mcg Senna (Senna -) 2 tab PO PRN PRN Reason: CONSTIPATION Sitagliptin Phosphate (Januvia -) 25 mg PO DAILY@0700 [facility] Last Admin: 12/01/16 06:24 Dose: 25 mg Sodium Chloride ([place] Nasal [place] -) 2 spray NS BID PRN PRN Reason: NASAL CONGESTION Tamsulosin HCl (Flomax -) 0.4 mg PO BID [facility] Last Admin: 12/01/16 10:15 Dose: 0.4 mg Terazosin HCl (Hytrin -) 5 mg PO HS [facility] Last Admin: 11/30/16 22:19 Dose: 5 mg - Objective Vital Signs: Vital Signs Temperature 98.2 F 12/01/16 10:00 Pulse Rate 100 H 12/01/16 10:00 Respiratory Rate 20 12/01/16 10:00 Blood Pressure 135/94 12/01/16 10:00 O2 Sat by Pulse Oximetry (%) 96 12/01/16 09:00 Constitutional: Yes: No Distress Cardiovascular: Yes: S1, S2 Respiratory: Yes: CTA Bilaterally, Other (Equal air entry B/L) Gastrointestinal: Yes: Soft, Abdomen, Obese. No: Tenderness, Rebound Edema: LLE: 2+, RLE: 2+ Labs: CBC, BMP 12/01/16 09:00 12/01/16 09:00 INR, PTT INR 0.96 (0.82-1.09) 11/22/16 17:00 Laboratory Tests 12/01/16 09:00 Sodium 142 Potassium 4.4 Chloride 98 Carbon Dioxide 30 Anion Gap 14 BUN 88 H Creatinine 2.5 H Creat Clearance w eGFR 25.51 Random Glucose 137 H D Calcium 8.8 AST 15 D ALT 23 D Alkaline Phosphatase 38 L Total Protein 6.6 Albumin 3.6 Assessment/Plan Impression 1. CKD 2. DM 3. HTN 4. CHF 5. COPD 6. fluid overload 7. BPH 8. insomnia 9. narcotic dependence Plan Continue with present meds Taper off steroids May discharge from a renal perspective Rpt labs as an outpt within the next week Dr Williamson
== END 2016-12-01 14:21 | disposition home or self-care (01) | DRG 291 ==
LOC: JER 15:36 → JERBED 16:42 → J8W 19:25 → UNDODISIN 11-26 18:25
PROVIDERS: ADMIT Family Medicine; ATTEND Family Medicine
DX: I13.0 Hypertensive heart and chronic kidney disease with heart failure and stage 1 through stage 4 chronic kidney disease, or unspecified chronic kidney disease (principal); I50.33 Acute on chronic diastolic (congestive) heart failure; J96.21 Acute and chronic respiratory failure with hypoxia; N17.9 Acute kidney failure, unspecified; J44.1 Chronic obstructive pulmonary disease with (acute) exacerbation; N18.9 Chronic kidney disease, unspecified; E78.5 Hyperlipidemia, unspecified; Z99.81 Dependence on supplemental oxygen; Z79.4 Long term (current) use of insulin; D64.9 Anemia, unspecified; E11.22 Type 2 diabetes mellitus with diabetic chronic kidney disease; E78.1 Pure hyperglyceridemia; Z87.891 Personal history of nicotine dependence; E11.65 Type 2 diabetes mellitus with hyperglycemia; N40.0 Benign prostatic hyperplasia without lower urinary tract symptoms; K59.03 Drug induced constipation; T40.2X5A Adverse effect of other opioids, initial encounter; M54.9 Dorsalgia, unspecified; D63.1 Anemia in chronic kidney disease; G47.00 Insomnia, unspecified; E66.01 Morbid (severe) obesity due to excess calories; Z68.39 Body mass index [BMI] 39.0-39.9, adult
CPT/HCPCS: 36415; 36600; 71020-TC; 80048; 80053; 80061; 82550; 82553; 82803; 83036; 83721; 83880; 84484; 85025; 85610; 93005; 93010; 94010; 94640; 94660; 97116-GP; 97161-GP; 99284-25; J1644

== ENCOUNTER 2016-12-24 14:21 | Inpatient (IN) | payer OTHER ==
[2016-12-24 14:27] VITALS: BMI 40.7
[2016-12-24 15:48] LABS: URINE APPEARANCE CLEAR; URINE BILIRUBIN NEGATIVE (NEGATIVE); URINE BLOOD NEGATIVE (NEGATIVE); URINE COLOR LTYELLOW; URINE GLUCOSE (UA) NEGATIVE (NEGATIVE); URINE KETONE NEGATIVE (NEGATIVE); URINE LEUK ESTERASE NEGATIVE (NEGATIVE); URINE NITRITE NEGATIVE (NEGATIVE); URINE PROTEIN NEGATIVE (NEGATIVE); URINE UROBILINOGEN NEGATIVE E.U./dl (0.2-1.0)
[2016-12-24 15:48] LABS: MCH 29.7 pg (25.7-33.7); MCHC 32.1 g/dl (32.0-35.9); MEAN CELL VOLUME 92.7 fl (80-96); MEAN PLT VOLUME 8.5 fl (7.5-11.1); PLATELET COUNT 278 K/MM3 (134-434); RDW 17.9 % (11.9-15.9); WHITE BLOOD COUNT 12.7 K/mm3 (4.0-10.0)
[2016-12-24 15:57] LABS: VENOUS BLOOD GAS HCO3 27.9 meq/L (19-25); VENOUS PH 7.3 (7.32-7.42)
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
[2016-12-24 16:15] LABS: ALBUMIN 3.1 g/dl (3.4-5.0); BILIRUBIN,TOTAL 0.3 mg/dL (0.2-1.0); CALCIUM 8.8 mg/dL (8.5-10.1); COCKROFT - GAULT 55.2; CREATININE 1.9 mg/dL (0.7-1.3); TOT PROT 6.3 g/dl (6.4-8.2)
[2016-12-24 16:16] LABS: INR 1.04 (0.82-1.09); PROTHROMBIN TIME (PATIENT) 11.5 SEC (9.98-11.88)
[2016-12-24 16:31] LABS: ANISOCYTOSIS 1+; HYPOCHROMIA 1+; METAMYELOCYTE 2 % (0-2); MICROCYTOSIS 1+; PLATELET ESTIMATE ADEQUATE (NORMAL); POLYCHROMASIA 1+
[2016-12-24 16:49] LABS: STOOL FOR OCCULT BLOOD POSITIVE (NEGATIVE)
[2016-12-24] MEDS ORDERED: guaiFENesin 600 MG TABLET.ER (FP) PO ONE (17:23)
[2016-12-24] MEDS ORDERED: HYDROmorphone HCL CARPU-JECT 2 MG/1 ML DISP.SYRIN IVPUSH ONE (19:26)
[2016-12-24] MEDS ORDERED: HYDROmorphone HCL CARPU-JECT 1 MG/1 ML DISP.SYRIN ONE (19:37)
[2016-12-24] MEDS ORDERED: DOCUSATE SODIUM 100 MG CAPSULE (FP) PO PRN (21:16)
[2016-12-24] MEDS ORDERED: oxyCODONE HCL 5 MG TABLET PO PRN (21:16)
[2016-12-24] MEDS ORDERED: SODIUM CHLORIDE NASAL SPRAY 44 ML BOTTLE NS PRN (21:16)
[2016-12-24] MEDS ORDERED: LACTULOSE 20 GM/30 ML UDC (FOR ORAL USE ONLY) PO PRN (21:16)
[2016-12-24] MEDS ORDERED: ACETAMINOPHEN 325 MG TABLET (FP) PO PRN (21:16)
[2016-12-24] MEDS ORDERED: FENTANYL PATCH WASTE TD PRN (22:30)
[2016-12-24] MEDS ORDERED: fentaNYL 75mcg/hr PATCH.TD72 TD SCH (22:30)
[2016-12-24] MEDS: DOCUSATE SODIUM 100 MG CAPSULE (FP) PO SCH (23:04)
[2016-12-24] MEDS: TAMSULOSIN HCL 0.4 MG CAP.ER.24H (FP) PO SCH (23:04)
[2016-12-24] MEDS: METOCLOPRAMIDE HCL 10 MG TABLET (FP) PO SCH (23:05)
[2016-12-24] MEDS: RANITIDINE HCL 150 MG TABLET (FP) PO SCH (23:05)
[2016-12-24] MEDS: SENNOSIDES 8.6MG TABLET (FP) PO SCH (23:05)
[2016-12-24] MEDS: predniSONE 20 MG TABLET (UD) PO SCH (23:05)
[2016-12-24] MEDS: TERAZOSIN HCL 5 MG CAPSULE PO SCH (23:37)
[2016-12-24] MEDS: BUDESONIDE/FORMETEROL FUMARATE 160/4.5 mcg INHALER IH SCH (23:37)
[2016-12-24] MEDS: INSULIN SLIDING SCALE (NOVOLOG) 1 VIAL SQ SCH (23:37)
[2016-12-24] MEDS: ALBUTEROL SO4 2.5/IPRATROPIUM 0.5 INH SOL 3 ML VIAL.NEB. NEB PRN (23:49)
[2016-12-25] MEDS ORDERED: HYDROmorphone HCL CARPU-JECT 2 MG/1 ML DISP.SYRIN IVPB ONE (01:00)
[2016-12-25] MEDS: predniSONE 20 MG TABLET (UD) PO SCH ×3 (02:52→21:24)
[2016-12-25] MEDS: METOCLOPRAMIDE HCL 10 MG TABLET (FP) PO SCH ×4 (06:08→21:24)
[2016-12-25] MEDS: INSULIN SLIDING SCALE (NOVOLOG) 1 VIAL SQ SCH ×4 (06:12→21:25)
[2016-12-25 07:40] LABS: MCHC 32.6 g/dl (32.0-35.9); MEAN CELL VOLUME 92.1 fl (80-96); MEAN PLT VOLUME 8.2 fl (7.5-11.1); PLATELET COUNT 277 K/MM3 (134-434); RDW 17.6 % (11.9-15.9); WHITE BLOOD COUNT 10.2 K/mm3 (4.0-10.0)
[2016-12-25 08:08] LABS: ALBUMIN 3.4 g/dl (3.4-5.0); CALCIUM 9.2 mg/dL (8.5-10.1)
[2016-12-25 08:13] LABS: BILIRUBIN,TOTAL 0.3 mg/dL (0.2-1.0); COCKROFT - GAULT 61.7; CREATININE 1.7 mg/dL (0.7-1.3); TOT PROT 6.9 g/dl (6.4-8.2)
--- NOTE | 2016-12-25 08:28 | HP ---
Admitting History and Physical - Admission History of Present Illness: 71 year old male presenting with his , with a significant past medical history of COPD (on home O2), HLD, CHF, IDDM, stomach ulcers and diverticulosis who presents to the emergency department after being sent for eval of anemia. He states that he has been weak as well as blood in his stool for the pat 6 days. He describes his stool as mixed with bright red blood and brown stool, which has been occurring for the last couple of days. He notes that he has had blood transfusions in the past due to ulcers. He states that he last saw his PMD 4 days ago. Pt endorses having cough with yellow mucus since he left the hospital and is unchanged. The patient denies chest pain, shortness of breath, headache and dizziness. Denies fever, chills, nausea, vomit, diarrhea and constipation. Denies dysuria, frequency, urgency and hematuria. 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: Yes: Migraine Cardiovascular: Yes: CHF, HTN, Hyperlipdemia Pulmonary: Yes: COPD, O2 Dependent Gastrointestinal: Yes: GERD Renal/: Yes: Renal Inusuff, BPH, Cancer, Hematuria, UTI, Other (CKD) Heme/Onc: Yes: Anemia Psych: Yes: Anxiety Musculoskeletal: Yes: Chronic low back pain, Osteoarthritis Endocrine: Yes: Diabetes Mellitus - Past Surgical History Past Surgical History: Yes: Colonoscopy (Done last December (2013) negative for significant pathology) - Smoking History Smoking history: Former smoker Have you smoked in the past 12 months: No Aproximately how many cigarettes per day: 2 If you are a former smoker, when did you quit?: 2016 - Alcohol/Substance Use Hx Alcohol Use: No Home Medications - Allergies Allergies/Adverse Reactions: Allergies Allergy/AdvReac Type Severity Reaction Status Date / Time No Known Drug Allergies Allergy Verified 12/24/16 14:27 HOT PEPPER Allergy SNEEZING Uncoded 12/24/16 14:27 - Home Medications Home Medications: Ambulatory Orders Aspirin [ASA -] 81 mg PO Q2D@1000 #30 tab.chew 12/27/14 Gemfibrozil [Lopid -] 600 mg PO BID #180 tablet 12/27/14 Terazosin HCl [Hytrin -] 5 mg PO HS #30 capsule 12/27/14 Cyanocobalamin [Vitamin B12 -] 1 g PO DAILY 04/18/16 Lactulose 10 gm PO DAILY 12/20/15 Iron 325 mg PO BID 02/22/16 Tamsulosin HCl [Flomax -] 0.4 mg PO BID 02/22/16 FENTANYL 75mcg PATCH [DURAGESIC 75mcg PATCH -] 1 patch TD Q72H 02/23/16 Albuterol Sulfate Inhaler - [Ventolin HFA Inhaler -] 1 - 2 inh PO Q4H #1 inhaler 03/11/16 Docusate Sodium [Colace -] 100 mg PO BID #60 capsule 03/11/16 Diltiazem Cd [Cardizem Cd -] 120 mg PO DAILY 05/05/16 Naloxegol Oxalate [Movantik] 25 mg PO DAILY PRN 05/05/16 Sitagliptin Phosphate [Januvia] 25 mg PO DAILY 05/05/16 Metoclopramide HCl [Reglan -] 5 mg PO TIDAC tablet 05/09/16 Sennosides [Senna -] 2 tab PO HS PRN #0 tablet 05/09/16 Allopurinol [Zyloprim -] 100 mg PO DAILY 09/28/16 Ranitidine HCl 300 mg PO DAILY 09/28/16 Sennosides [Senokot] 8.6 mg PO DAILY 09/28/16 Acetaminophen [Tylenol .Regular Strength -] 650 mg PO Q6H PRN #0 tablet Budesonide/Formeterol Fumarate [SYMBICORT 160/4.5mcg -] 2 puff IH BID #1 inhaler 10/07/16 Insulin Aspart Prot/Insuln Asp [Novolog Mix 70-30 Flexpen Syrn] 32 unit SQ BID # 1 box 10/07/16 Losartan Potassium [Cozaar -] 25 mg PO DAILY #30 tablet 10/07/16 Roflumilast [Daliresp -] 500 mcg PO DAILY #30 tablet 10/07/16 Sodium Chloride Nasal [employer] [[place] [employer] Nasal [employer] -] 2 spray NS BID PRN #1 bottle 10/07/16 Oxycodone HCl [Roxicodone] 15 mg PO Q4HWA PRN 11/22/16 Albuterol 2.5/Ipratropium 0.5 [Duoneb -] 1 amp NEB QIDR amp 12/01/16 Furosemide [Lasix -] 60 mg PO BID@0600,1400 tablet 12/01/16 Prednisone [Deltasone -] 20 mg PO BID #60 tablet 12/01/16 Family Disease History - Family Disease History Family Disease History: Diabetes: Brother, Heart Disease: Brother Review of Systems - Review of Systems Cardiovascular: reports: Edema. denies: Chest Pain Respiratory: reports: SOB, SOB on Exertion Gastrointestinal: reports: Rectal Bleeding. denies: Abdominal Pain Genitourinary: reports: No Symptoms Physical Examination Vital Signs: Vital Signs Temperature 97.9 F 12/25/16 05:41 Pulse Rate 92 H 12/25/16 05:41 Respiratory Rate 18 12/25/16 05:41 Blood Pressure 123/59 12/25/16 05:41 O2 Sat by Pulse Oximetry (%) 94 L 12/24/16 23:00 Cardiovascular: Yes: S1, S2 Respiratory: Yes: Diminished, On Nasal O2, Rhonchi Gastrointestinal: Yes: Normal Bowel Sounds, Soft Edema: Yes Labs: CBC, BMP 12/25/16 06:30 12/25/16 06:30 Problem List - Problems (1) Anemia Assessment/Plan: FOLLOW LABS MONITOR AFTER PRBC GI CONSULT PPI Code(s): D64.9 - ANEMIA, UNSPECIFIED Qualifiers: Anemia type: unspecified type Qualified Code(s): D64.9 - Anemia, unspecified (2) Rectal bleed Assessment/Plan: ABOVE MONITOR Code(s): K62.5 - HEMORRHAGE OF ANUS AND RECTUM (3) Diabetes mellitus, insulin dependent (IDDM), uncontrolled Assessment/Plan: BGM SS ENDO Code(s): E10.65 - TYPE 1 DIABETES MELLITUS WITH HYPERGLYCEMIA Qualifiers: Diabetes mellitus complication status: without complication Qualified Code(s): E10.9 - Type 1 diabetes mellitus without complications (4) HTN (hypertension) Assessment/Plan: MONITOR BP Code(s): I10 - ESSENTIAL (PRIMARY) HYPERTENSION Qualifiers: Hypertension type: essential hypertension Qualified Code(s): I10 - Essential (primary) hypertension
[2016-12-25] MEDS ORDERED: PT OWN MED DRAWER 7, Y5N ONE ×3 (09:43→21:08)
[2016-12-25] MEDS ORDERED: FUROSEMIDE 40 MG TABLET (FP) PO SCH (10:00)
[2016-12-25] MEDS: ALBUTEROL SO4 2.5/IPRATROPIUM 0.5 INH SOL 3 ML VIAL.NEB. NEB PRN ×3 (10:09→23:45)
[2016-12-25] MEDS: sitaGLIPtin PHOSPHATE 25 MG TABLET (FP) PO SCH (10:17)
[2016-12-25] MEDS: FERROUS SO4 325 MG TABLET (FP) PO SCH (10:18)
[2016-12-25] MEDS: ALLOPURINOL 300 MG TABLET (FP) PO SCH (10:19)
[2016-12-25] MEDS: SENNOSIDES 8.6MG TABLET (FP) PO SCH ×2 (10:19→21:23)
[2016-12-25] MEDS: INSULIN (NOVOLOG MIX 70/30) 100 UNITS/ML MDV SQ SCH ×2 (10:19→16:54)
[2016-12-25] MEDS: RANITIDINE HCL 150 MG TABLET (FP) PO SCH ×2 (10:19→21:23)
[2016-12-25] MEDS: ASPIRIN COATED 81 MG TABLET.EC PO SCH (10:19)
[2016-12-25] MEDS: GEMFIBROZIL 600 MG TABLET (FP) PO SCH ×2 (10:20→16:54)
[2016-12-25] MEDS: TAMSULOSIN HCL 0.4 MG CAP.ER.24H (FP) PO SCH ×2 (10:21→21:23)
[2016-12-25] MEDS: PANTOPRAZOLE SODIUM 80 MG in SODIUM CHLORIDE 100 ML IVPB SCH ×3 (11:10→21:25)
[2016-12-25] MEDS: BUDESONIDE/FORMETEROL FUMARATE 160/4.5 mcg INHALER IH SCH ×2 (11:48→21:22)
[2016-12-25] MEDS: LOSARTAN 50MG/HCTZ 12.5MG 1 TAB (FP) PO SCH (11:49)
[2016-12-25] MEDS: ROFLUMILAST 500 MCG TABLET PO SCH (12:00)
[2016-12-25] MEDS: FUROSEMIDE 40 MG/4 ML INJECTABLE VIAL IVPUSH SCH (15:10)
--- NOTE | 2016-12-25 15:10 | PN ---
Progress Note (short form) - Note Progress Note: PULMONARY CONSULTATION DICTATED12/25/16 IMP CHRONIC HYPOXEMIC/HYPERCAPNEIC RESPIRATORY FAILURE ADVANCED COPD GI BLEED ANEMIA IDDM ACUTE ON CHRONIC RENAL FAILURE BPH LIKELY OSAS PLAN INHALED BRONCHODILATORS O2 BIPAP AT NIGHT AND PRN PREDNISONE LASIX MONITOR H+H TRANSFUSE PRN MONITOR LYTES,RENAL FUNCTION MONITOR BLOOD SUGARS GI W/U SLEEP STUDIES OUTPATIENT DR CEVALLOS Problem List - Problems (1) Anemia Code(s): D64.9 - ANEMIA, UNSPECIFIED Qualifiers: Anemia type: unspecified type Qualified Code(s): D64.9 - Anemia, unspecified (2) Cough Code(s): R05 - COUGH (3) HTN (hypertension) Code(s): I10 - ESSENTIAL (PRIMARY) HYPERTENSION Qualifiers: Hypertension type: essential hypertension Qualified Code(s): I10 - Essential (primary) hypertension (4) Rectal bleed Code(s): K62.5 - HEMORRHAGE OF ANUS AND RECTUM (5) Rogdm-da-gyignbn kidney injury Code(s): N17.9 - ACUTE KIDNEY FAILURE, UNSPECIFIED N18.9 - CHRONIC KIDNEY DISEASE, UNSPECIFIED (6) Anemia in chronic kidney disease Code(s): N18.9 - CHRONIC KIDNEY DISEASE, UNSPECIFIED D63.1 - ANEMIA IN CHRONIC KIDNEY DISEASE (7) CKD (chronic kidney disease) Code(s): N18.9 - CHRONIC KIDNEY DISEASE, UNSPECIFIED Qualifiers: Chronic kidney disease stage: unspecified stage Qualified Code(s): N18.9 - Chronic kidney disease, unspecified (8) COPD (chronic obstructive pulmonary disease) Code(s): J44.9 - CHRONIC OBSTRUCTIVE PULMONARY DISEASE, UNSPECIFIED Qualifiers : COPD type: chronic bronchitis (9) Chronic respiratory failure with hypoxia Code(s): J96.11 - CHRONIC RESPIRATORY FAILURE WITH HYPOXIA (10) GERD (gastroesophageal reflux disease) Code(s): K21.9 - GASTRO-ESOPHAGEAL REFLUX DISEASE WITHOUT ESOPHAGITIS (11) Leg edema Code(s): R60.0 - LOCALIZED EDEMA Qualifiers: Laterality: bilateral Qualified Code(s): R60.0 - Localized edema (12) Shortness of breath Code(s): R06.02 - SHORTNESS OF BREATH (13) GI bleed Code(s): K92.2 - GASTROINTESTINAL HEMORRHAGE, UNSPECIFIED (14) Chronic respiratory failure with hypoxia and hypercapnia Code(s): J96.11 - CHRONIC RESPIRATORY FAILURE WITH HYPOXIA J96.12 - CHRONIC RESPIRATORY FAILURE WITH HYPERCAPNIA
--- NOTE | 2016-12-25 15:29 | CONSULT ---
Consult Consult Specialty:: Nephrology Reason for Consultation:: CKD - History of Present Illness Chief Complaint: shortness of breath History of Present Illness: Pt is a 71 year old male with pmhx of CKD, CHF, COPD, DM and HLD who presents to ER with low hg. He complains of shortness of breath. He complains of blood in the stool for the last 6 days. He denies dysuria or hematuria. He complains of wheezing. He was admitted for blood transfusion. He denies fevers or chills. 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 Cardio/Vascular: Yes: CHF, HTN, Hyperlipdemia Pulmonary: Yes: COPD, O2 Dependent Gastrointestinal: Yes: GERD Renal/: Yes: Renal Inusuff, BPH, Cancer, Hematuria, UTI, Other (CKD) Psych: Yes: Anxiety Musculoskeletal: Yes: Chronic low back pain, Osteoarthritis Endocrine: Yes: Diabetes Mellitus - Past Surgical History Past Surgical History: Yes: Colonoscopy (Done last December (2013) negative for significant pathology) - Alcohol/Substance Use Hx Alcohol Use: No - Smoking History Smoking history: Former smoker Have you smoked in the past 12 months: No Aproximately how many cigarettes per day: 2 If you are a former smoker, when did you quit?: 2016 - Social History Usual Living Arrangement: Alone Home Medications - Allergies Allergies/Adverse Reactions: Allergies Allergy/AdvReac Type Severity Reaction Status Date / Time No Known Drug Allergies Allergy Verified 12/24/16 14:27 HOT PEPPER Allergy SNEEZING Uncoded 12/24/16 14:27 - Home Medications Home Medications: Ambulatory Orders Aspirin [ASA -] 81 mg PO Q2D@1000 #30 tab.chew 12/27/14 Gemfibrozil [Lopid -] 600 mg PO BID #180 tablet 12/27/14 Terazosin HCl [Hytrin -] 5 mg PO HS #30 capsule 12/27/14 Cyanocobalamin [Vitamin B12 -] 1 g PO DAILY 12/19/15 Lactulose 10 gm PO DAILY 12/20/15 Iron 325 mg PO BID 02/22/16 Tamsulosin HCl [Flomax -] 0.4 mg PO BID 02/22/16 FENTANYL 75mcg PATCH [DURAGESIC 75mcg PATCH -] 1 patch TD Q72H 02/23/16 Albuterol Sulfate Inhaler - [Ventolin HFA Inhaler -] 1 - 2 inh PO Q4H #1 inhaler 03/11/16 Docusate Sodium [Colace -] 100 mg PO BID #60 capsule 03/11/16 Diltiazem Cd [Cardizem Cd -] 120 mg PO DAILY 05/05/16 Naloxegol Oxalate [Movantik] 25 mg PO DAILY PRN 05/05/16 Sitagliptin Phosphate [Januvia] 25 mg PO DAILY 05/05/16 Metoclopramide HCl [Reglan -] 5 mg PO TIDAC tablet 05/09/16 Sennosides [Senna -] 2 tab PO HS PRN #0 tablet 05/09/16 Allopurinol [Zyloprim -] 100 mg PO DAILY 09/28/16 Ranitidine HCl 300 mg PO DAILY 09/28/16 Sennosides [Senokot] 8.6 mg PO DAILY 09/28/16 Acetaminophen [Tylenol .Regular Strength -] 650 mg PO Q6H PRN #0 tablet Budesonide/Formeterol Fumarate [SYMBICORT 160/4.5mcg -] 2 puff IH BID #1 inhaler 10/07/16 Insulin Aspart Prot/Insuln Asp [Novolog Mix 70-30 Flexpen Syrn] 32 unit SQ BID # 1 box 10/07/16 Losartan Potassium [Cozaar -] 25 mg PO DAILY #30 tablet 10/07/16 Roflumilast [Daliresp -] 500 mcg PO DAILY #30 tablet 10/07/16 Sodium Chloride Nasal Laurel [Violet Laurel Nasal Laurel -] 2 spray NS BID PRN #1 bottle 10/07/16 Oxycodone HCl [Roxicodone] 15 mg PO Q4HWA PRN 11/22/16 Albuterol 2.5/Ipratropium 0.5 [Duoneb -] 1 amp NEB QIDR amp 12/01/16 Furosemide [Lasix -] 60 mg PO BID@0600,1400 tablet 12/01/16 Prednisone [Deltasone -] 20 mg PO BID #60 tablet 12/01/16 Family Disease History - Family Disease History Family Disease History: Diabetes: Brother, Heart Disease: Brother Review of Systems - Review of Systems Constitutional: reports: Malaise Eyes: reports: No Symptoms HENT: reports: No Symptoms Neck: reports: No Symptoms Cardiovascular: reports: Edema, Shortness of Breath Respiratory: reports: Cough, SOB, SOB on Exertion Musculoskeletal: reports: No Symptoms Integumentary: reports: No Symptoms Neurological: reports: No Symptoms Endocrine: reports: No Symptoms Physical Exam Vital Signs: Vital Signs Temperature 97.3 F L 12/25/16 10:26 Pulse Rate 81 12/25/16 10:26 Respiratory Rate 22 12/25/16 10:26 Blood Pressure 127/70 12/25/16 10:26 O2 Sat by Pulse Oximetry (%) 94 L 12/24/16 23:00 Constitutional: Yes: Calm HENT: Yes: Atraumatic Cardiovascular: Yes: S1, S2 Respiratory: Yes: On Nasal O2, Wheezes Gastrointestinal: Yes: Soft Renal/: Yes: WNL Musculoskeletal: Yes: WNL Edema: Yes Edema: LLE: 2+, RLE: 2+ Neurological: Yes: Oriented Psychiatric: Yes: Oriented Labs: CBC, BMP 12/25/16 06:30 12/25/16 06:30 Laboratory Tests 11/28/16 11/30/16 12/01/16 06:00 06:05 09:00 WBC Hgb 9.5 L Sodium Potassium Chloride Carbon Dioxide Anion Gap BUN Creatinine 2.5 H 2.5 H 12/01/16 12/24/16 12/24/16 09:00 14:35 14:35 WBC Hgb 7.9 L D Sodium Potassium Chloride Carbon Dioxide Anion Gap BUN Creatinine 2.5 H 1.9 H D 12/25/16 12/25/16 06:30 06:30 WBC 10.2 H Hgb 9.7 L D Sodium 142 Potassium 3.9 Chloride 103 Carbon Dioxide 27 Anion Gap 12 BUN 55 H Creatinine 1.7 H Imaging - Results Chest X-ray: Report Reviewed Problem List - Problems (1) Anemia Code(s): D64.9 - ANEMIA, UNSPECIFIED Qualifiers: Anemia type: unspecified type Qualified Code(s): D64.9 - Anemia, unspecified (2) Diabetes mellitus, insulin dependent (IDDM), uncontrolled Code(s): E10.65 - TYPE 1 DIABETES MELLITUS WITH HYPERGLYCEMIA Qualifiers: Diabetes mellitus complication status: without complication Qualified Code(s): E10.9 - Type 1 diabetes mellitus without complications (3) CKD (chronic kidney disease) Code(s): N18.9 - CHRONIC KIDNEY DISEASE, UNSPECIFIED Qualifiers: Chronic kidney disease stage: unspecified stage Qualified Code(s): N18.9 - Chronic kidney disease, unspecified (4) COPD (chronic obstructive pulmonary disease) Code(s): J44.9 - CHRONIC OBSTRUCTIVE PULMONARY DISEASE, UNSPECIFIED Qualifiers : COPD type: chronic bronchitis Assessment/Plan Current Medications Generic Name Dose Route Start Last Admin Trade Name Freq PRN Reason Stop Dose Admin Acetaminophen 650 mg 12/24/16 21:16 Tylenol - PO Q6H PRN FEVER OR PAIN Albuterol/Ipratropium 1 amp 12/24/16 21:16 12/25/16 10:09 Duoneb - NEB 1 amp Q6H PRN Administration SHORTNESS OF BREATH Allopurinol 300 mg 12/25/16 10:00 12/25/16 10:19 Zyloprim - PO 300 mg DAILY JOSE LUIS Administration Aspirin 81 mg 12/25/16 10:00 12/25/16 10:19 Ecotrin - PO 81 mg DAILY JOSE LUIS Administration Budesonide/Formoterol Fumarate 2 puff 12/24/16 22:00 12/25/16 11:48 Symbicort 160/4.5mcg - IH 2 puff BID JOSE LUIS Administration Diltiazem HCl 120 mg 12/25/16 10:00 12/25/16 10:19 Cardizem Cd - PO 120 mg DAILY JOSE LUIS Administration Docusate Sodium 100 mg 12/24/16 21:16 Colace - PO BID PRN CONSTIPATION Docusate Sodium 300 mg 12/24/16 22:00 12/24/16 23:04 Colace - PO 300 mg HS JOSE LUIS Administration Fentanyl 1 patch 12/24/16 22:30 12/24/16 23:03 Duragesic 75mcg Patch - TD 1 patch Q72H JOSE LUIS Administration Ferrous Sulfate 325 mg 12/25/16 10:00 12/25/16 10:18 Feosol - PO 325 mg DAILY JOSE LUIS Administration Furosemide 40 mg 12/25/16 14:00 12/25/16 15:10 Lasix Injection - IVPUSH 40 mg BID@0600,1400 JOSE LUIS Administration Gemfibrozil 600 mg 12/25/16 07:00 12/25/16 10:20 Lopid - PO 600 mg BID@0700,1630 JOSE LUIS Administration HCTZ/Losartan Potassium 1 tab 12/25/16 10:00 12/25/16 11:49 Hyzaar - PO 1 tab DAILY JOSE LUIS Administration Pantoprazole Sodium 80 mg/ 100 mls @ 10 mls/hr 12/25/16 08:45 12/25/16 11:10 Sodium Chloride IVPB 10 mls/hr Q10H JOSE LUIS Administration 8 MG/HR Insulin Aspart 1 vial 12/24/16 22:00 12/25/16 11:52 Novolog Vial Sliding Scale - SQ Not Given ACHS JOSE LUIS Protocol Insulin Aspart 32 units 12/25/16 07:00 12/25/16 10:19 Novolog Mix 70/30 Vial SQ Not Given BIDAC JOSE LUIS Lactulose 20 gm 12/24/16 21:16 Cephulac (Oral Use) PO Q8H PRN CONSTIPATION Metoclopramide HCl 10 mg 12/24/16 22:00 12/25/16 12:30 Reglan - PO 10 mg ACHS JOSE LUIS Administration Miscellaneous 1 each 12/24/16 22:30 Duragesic Patch Waste TD PRN PRN PAIN Oxycodone HCl 15 mg 12/24/16 21:16 Roxicodone - PO Q6H PRN PAIN Prednisone 20 mg 12/24/16 22:00 12/25/16 10:19 Deltasone - PO 20 mg BID JOSE LUIS Administration Ranitidine HCl 150 mg 12/24/16 22:00 12/25/16 10:19 Zantac - PO 150 mg BID JOSE LUIS Administration Roflumilast 500 mcg 12/25/16 10:00 Daliresp - PO DAILY JOSE LUIS Senna 1 tab 12/24/16 22:00 12/25/16 10:19 Senna - PO 1 tab BID JOSE LUIS Administration Sitagliptin Phosphate 25 mg 12/25/16 07:00 12/25/16 10:17 Januvia - PO Not Given DAILY@0700 JOSE LUIS Sodium Chloride 2 spray 12/24/16 21:16 Violet Laurel Nasal Laurel - NS Q12H PRN NASAL CONGESTION Tamsulosin HCl 0.4 mg 12/24/16 22:00 12/25/16 10:21 Flomax - PO 0.4 mg BID JOSE LUIS Administration Terazosin HCl 5 mg 12/24/16 22:00 12/24/16 23:37 Hytrin - PO Not Given HS JOSE LUIS Impression 1. CKD 2. DM 3. HTN 4. CHF 5. COPD 6. anemia 7. BPH 8. insomnia 9. narcotic dependence Plan - renal function is stabke - monitor hg - will monitor creatinine - cont with lasix - cont with arb - discussed compliance with fluid and salt intake - will follow Dr Nathan
--- NOTE | 2016-12-25 16:19 | CONS ---
PULMONARY CONSULTATION DATE OF CONSULTATION: 12/25/2016 REFERRING PHYSICIAN: Misti Crenshaw MD The patient is a 71-year-old black male known to me from previous hospitalization, with past medical history of advanced COPD on home O2, hyperlipidemia, CHF, insulin-dependent diabetes mellitus, as well as stomach ulcers, diverticulosis, admitted to [facility] secondary to generalized weakness as well as bloody stools for approximately 6 days. He states for the past 6 days, he has been having mixed stool with bright red blood. He denied any abdominal pain. Denied any chest pain or palpitations. He has complained of weakness as well as increasing shortness of breath. The patient has a cough productive of yellow mucus. Patient presented to the ER with the above. In the ER, he was found to be anemic with hemoglobin of 7.9. He was subsequently transfused without complications. He sleeps on 2 pillows, as well as occasional PND. Denies hemoptysis. Denies any recent travel. - h/o DVT with PE in the past. PAST MEDICAL HISTORY: Again includes advanced COPD on O2, hypertension, morbid obesity, insulin-dependent diabetes mellitus, CHF, stomach ulcers, diverticulosis, GERD, BPH, chronic kidney disease, anemia. CURRENT MEDICATIONS: Include Duragesic, Symbicort, prednisone 20 b.i.d., Flomax , Hytrin, lactulose, Tylenol, Hyzaar, Zyloprim, DuoNeb, Cardizem CD, Colace, senna , Januvia, Lopid, Zantac, Feosol, Lasix 40 b.i.d., Ecotrin, Duragesic patch, metoclopramide, and Daliresp. REVIEW OF SYSTEMS: Positive orthopnea. Positive dyspnea. Positive weakness. No chest pain. No palpitations. Positive cough. Positive sputum. No abdominal pain. Positive lower extremity edema. PHYSICAL EXAMINATION: General: The patient is an obese male, awake, alert, currently in no acute distress. Vital Signs: He is currently afebrile. Heart rate is 81, blood pressure is 127 /70, respiratory rate is 22, and O2 saturation is 94% on room air. HEENT: Head exam is normocephalic, atraumatic. Neck: Supple. Heart: Regular. S1, S2. Chest: Bilateral rhonchi. Abdomen: Soft. Bowel sounds are positive. Extremities: Bilateral lower extremity edema. LABORATORY DATA: WBC is 10.2, hemoglobin 9.7, hematocrit 29.7, platelet count 277,000. INR is 1.04. Venous blood gas: A pH 7.30, pCO2 of 54, pO2 of 37, and bicarbonate of 27. BUN 55, creatinine 1.7. Chest x-ray reveals no acute infiltrate or effusions. IMPRESSION: 1. Chronic hypercapnic, hypoxemic respiratory failure. 2. Advanced chronic obstructive pulmonary disease. 3. Gastrointestinal bleed. 4. Congestive heart failure. 5. Insulin-dependent diabetes mellitus. 6. Chronic kidney disease. 7. Benign prostatic hypertrophy. PLAN: Add bronchodilators, supplemental O2, BiPAP at night as well as p.r.n. Monitor hemoglobin and hematocrit, transfuse p.r.n. Monitor blood sugars. Monitor electrolytes. Monitor renal function. Strict I's and O's. GI workup in progress. ALEX CEVALLOS M.D. [id number] MTDD
[2016-12-25 16:45] LABS: MCH 29.5 pg (25.7-33.7); MEAN CELL VOLUME 92.3 fl (80-96); PLATELET COUNT 306 K/MM3 (134-434); RDW 17.6 % (11.9-15.9); WHITE BLOOD COUNT 13.8 K/mm3 (4.0-10.0)
--- NOTE | 2016-12-25 21:03 | CON.GI ---
Consult Consult Specialty:: GI Referred by:: Dr Crenshaw Reason for Consultation:: BRBPR with need for transfusion of 1 unit PRBC - History of Present Illness Chief Complaint: Rectal bleed History of Present Illness: 71 M with h/o O2 dependent COPD, HLD, CHF, IDDM, S/P penile implant, h/o bladder ca, now admitted with anemia and self-report of bloody stools for the past 6 days. He is well-known to our service and has had EGD and colon in the past. 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 Cardio/Vascular: Yes: CHF, HTN, Hyperlipdemia Pulmonary: Yes: COPD, O2 Dependent Gastrointestinal: Yes: GERD Renal/: Yes: Renal Inusuff, BPH, Cancer, Hematuria, UTI, Other (CKD) Psych: Yes: Anxiety Musculoskeletal: Yes: Chronic low back pain, Osteoarthritis Endocrine: Yes: Diabetes Mellitus - Past Surgical History Past Surgical History: Yes: Colonoscopy (Done last December (2013) negative for significant pathology) - Alcohol/Substance Use Hx Alcohol Use: No - Smoking History Smoking history: Former smoker Have you smoked in the past 12 months: No Aproximately how many cigarettes per day: 2 If you are a former smoker, when did you quit?: 2016 - Social History Usual Living Arrangement: Alone Home Medications - Allergies Allergies/Adverse Reactions: Allergies Allergy/AdvReac Type Severity Reaction Status Date / Time No Known Drug Allergies Allergy Verified 12/24/16 14:27 HOT PEPPER Allergy SNEEZING Uncoded 12/24/16 14:27 - Home Medications Home Medications: Ambulatory Orders Aspirin [ASA -] 81 mg PO Q2D@1000 #30 tab.chew 12/27/14 Gemfibrozil [Lopid -] 600 mg PO BID #180 tablet 12/27/14 Terazosin HCl [Hytrin -] 5 mg PO HS #30 capsule 12/27/14 Cyanocobalamin [Vitamin B12 -] 1 g PO DAILY 12/19/15 Lactulose 10 gm PO DAILY 12/20/15 Iron 325 mg PO BID 02/22/16 Tamsulosin HCl [Flomax -] 0.4 mg PO BID 02/22/16 FENTANYL 75mcg PATCH [DURAGESIC 75mcg PATCH -] 1 patch TD Q72H 02/23/16 Albuterol Sulfate Inhaler - [Ventolin HFA Inhaler -] 1 - 2 inh PO Q4H #1 inhaler 03/11/16 Docusate Sodium [Colace -] 100 mg PO BID #60 capsule 03/11/16 Diltiazem Cd [Cardizem Cd -] 120 mg PO DAILY 05/05/16 Naloxegol Oxalate [Movantik] 25 mg PO DAILY PRN 05/05/16 Sitagliptin Phosphate [Januvia] 25 mg PO DAILY 05/05/16 Metoclopramide HCl [Reglan -] 5 mg PO TIDAC tablet 05/09/16 Sennosides [Senna -] 2 tab PO HS PRN #0 tablet 05/09/16 Allopurinol [Zyloprim -] 100 mg PO DAILY 09/28/16 Ranitidine HCl 300 mg PO DAILY 09/28/16 Sennosides [Senokot] 8.6 mg PO DAILY 09/28/16 Acetaminophen [Tylenol .Regular Strength -] 650 mg PO Q6H PRN #0 tablet Budesonide/Formeterol Fumarate [SYMBICORT 160/4.5mcg -] 2 puff IH BID #1 inhaler 10/07/16 Insulin Aspart Prot/Insuln Asp [Novolog Mix 70-30 Flexpen Syrn] 32 unit SQ BID # 1 box 10/07/16 Losartan Potassium [Cozaar -] 25 mg PO DAILY #30 tablet 10/07/16 Roflumilast [Daliresp -] 500 mcg PO DAILY #30 tablet 10/07/16 Sodium Chloride Nasal Mobile [[place] Mobile Nasal Mobile -] 2 spray NS BID PRN #1 bottle 10/07/16 Oxycodone HCl [Roxicodone] 15 mg PO Q4HWA PRN 11/22/16 Albuterol 2.5/Ipratropium 0.5 [Duoneb -] 1 amp NEB QIDR amp 12/01/16 Furosemide [Lasix -] 60 mg PO BID@0600,1400 tablet 12/01/16 Prednisone [Deltasone -] 20 mg PO BID #60 tablet 12/01/16 Family Disease History - Family Disease History Family Disease History: Diabetes: Brother, Heart Disease: Brother Physical Exam-GI Vital Signs: Vital Signs Temperature 98.7 F 12/25/16 15:58 Pulse Rate 96 H 12/25/16 15:58 Respiratory Rate 18 12/25/16 15:58 Blood Pressure 114/56 12/25/16 15:58 O2 Sat by Pulse Oximetry (%) 94 L 12/25/16 10:20 Constitutional: Yes: Mild Distress HENT: Yes: Normocephalic Neck: Yes: Supple Cardiovascular: Yes: Regular Rate and Rhythm Respiratory: Yes: Diminished Gastrointestinal Inspection: Yes: WNL ...Auscultate: Yes: Normoactive Bowel Sounds ...Palpate: Yes: Soft Neurological: Yes: WNL Labs: CBC, BMP 12/25/16 16:00 12/25/16 06:30 INR, PTT INR 1.04 (0.82-1.09) 12/24/16 14:35 Hepatic Panel Total Bilirubin 0.3 mg/dL (0.2-1.0) 12/25/16 06:30 AST 18 U/L (15-37) D 12/25/16 06:30 ALT 21 U/L (12-78) 12/25/16 06:30 Alkaline Phosphatase 49 U/L (45-117) 12/25/16 06:30 Albumin 3.4 g/dl (3.4-5.0) 12/25/16 06:30 Assessment/Plan rectal bleeding and anemia Will do EGD and colon on Thurs AM Prep tomorrow-orders written Monitor CBC
[2016-12-25] MEDS: DOCUSATE SODIUM 100 MG CAPSULE (FP) PO SCH (21:23)
[2016-12-25] MEDS: HYDROmorphone HCL CARPU-JECT 2 MG/1 ML DISP.SYRIN IVPB PRN (21:42)
[2016-12-25] MEDS: TERAZOSIN HCL 5 MG CAPSULE PO SCH (22:10)
[2016-12-26] MEDS: FUROSEMIDE 40 MG/4 ML INJECTABLE VIAL IVPUSH SCH ×2 (05:29→15:12)
[2016-12-26] MEDS: GEMFIBROZIL 600 MG TABLET (FP) PO SCH ×2 (06:10→17:23)
[2016-12-26] MEDS: METOCLOPRAMIDE HCL 10 MG TABLET (FP) PO SCH ×4 (06:11→21:55)
[2016-12-26] MEDS: INSULIN (NOVOLOG MIX 70/30) 100 UNITS/ML MDV SQ SCH ×2 (06:33→17:16)
[2016-12-26] MEDS: sitaGLIPtin PHOSPHATE 25 MG TABLET (FP) PO SCH (06:33)
[2016-12-26] MEDS: INSULIN SLIDING SCALE (NOVOLOG) 1 VIAL SQ SCH ×4 (06:33→21:52)
[2016-12-26] MEDS: ALBUTEROL SO4 2.5/IPRATROPIUM 0.5 INH SOL 3 ML VIAL.NEB. NEB PRN (06:38)
[2016-12-26 07:34] LABS: MCHC 32.1 g/dl (32.0-35.9); MEAN CELL VOLUME 93.4 fl (80-96); MEAN PLT VOLUME 8.6 fl (7.5-11.1); PLATELET COUNT 266 K/MM3 (134-434); RDW 17.8 % (11.9-15.9); WHITE BLOOD COUNT 11.6 K/mm3 (4.0-10.0)
--- NOTE | 2016-12-26 07:59 | CON.CARD ---
Consult Consult Specialty:: Cardiology Referred by:: Dr. Crenshaw Reason for Consultation:: Cardiac evaluation - History of Present Illness Chief Complaint: GI bleed History of Present Illness: Patient was seen and examined yesterday for a consultation and this note is back dated for yesterday (12/25/16) Patient is a 71 year old male well known to our service with underlying history of COPD with multiple exacerbations, chronic hypoxic respiratory failure, HTN/ HCVD, insulin dependent type 2 diabetes mellitus, anemia, LV diastolic dysfunction and hypercholesterolemia now presents with reported rectal bleed. Patient has had GI work ups in the past. He also complains of persistent pedal edema, but complains of less shortness of breath compared to previous admissions to the hospital. He denies chest pain or palpitations. He denies fever or chills. He denies paroxysmal nocturnal dyspnea or orthopnea. No headache or lightheadedness. Cardiology consultation was called and patient was seen yesterday as outline, but note is written today. - History Source History Provided By: Patient, Medical Record Limitations to Obtaining History: No Limitations - Past Medical History ASSISTANT IN NURSING: Yes: Migraine Cardio/Vascular: Yes: CHF, HTN, Hyperlipdemia Pulmonary: Yes: COPD, O2 Dependent Gastrointestinal: Yes: GERD Renal/: Yes: Renal Inusuff, BPH, UTI, Other (CKD) Psych: Yes: Anxiety Musculoskeletal: Yes: Chronic low back pain, Osteoarthritis Endocrine: Yes: Diabetes Mellitus - Past Surgical History Past Surgical History: Yes: Colonoscopy (Done last December (2013) negative for significant pathology) - Alcohol/Substance Use Hx Alcohol Use: No History of Substance Use: reports: None - Smoking History Smoking history: Former smoker Have you smoked in the past 12 months: No Aproximately how many cigarettes per day: 2 If you are a former smoker, when did you quit?: 2016 - Social History Usual Living Arrangement: With Spouse Home Medications - Allergies Allergies/Adverse Reactions: Allergies Allergy/AdvReac Type Severity Reaction Status Date / Time No Known Drug Allergies Allergy Verified 12/24/16 14:27 HOT PEPPER Allergy SNEEZING Uncoded 12/24/16 14:27 - Home Medications Home Medications: Ambulatory Orders Aspirin [ASA -] 81 mg PO Q2D@1000 #30 tab.chew 12/27/14 Gemfibrozil [Lopid -] 600 mg PO BID #180 tablet 12/27/14 Terazosin HCl [Hytrin -] 5 mg PO HS #30 capsule 12/27/14 Cyanocobalamin [Vitamin B12 -] 1 g PO DAILY 12/19/15 Lactulose 10 gm PO DAILY 12/20/15 Iron 325 mg PO BID 02/22/16 Tamsulosin HCl [Flomax -] 0.4 mg PO BID 02/22/16 FENTANYL 75mcg PATCH [DURAGESIC 75mcg PATCH -] 1 patch TD Q72H 02/23/16 Albuterol Sulfate Inhaler - [Ventolin HFA Inhaler -] 1 - 2 inh PO Q4H #1 inhaler 03/11/16 Docusate Sodium [Colace -] 100 mg PO BID #60 capsule 03/11/16 Diltiazem Cd [Cardizem Cd -] 120 mg PO DAILY 05/05/16 Naloxegol Oxalate [Movantik] 25 mg PO DAILY PRN 05/05/16 Sitagliptin Phosphate [Januvia] 25 mg PO DAILY 05/05/16 Metoclopramide HCl [Reglan -] 5 mg PO TIDAC tablet 05/09/16 Sennosides [Senna -] 2 tab PO HS PRN #0 tablet 05/09/16 Allopurinol [Zyloprim -] 100 mg PO DAILY 09/28/16 Ranitidine HCl 300 mg PO DAILY 09/28/16 Sennosides [Senokot] 8.6 mg PO DAILY 09/28/16 Acetaminophen [Tylenol .Regular Strength -] 650 mg PO Q6H PRN #0 tablet Budesonide/Formeterol Fumarate [SYMBICORT 160/4.5mcg -] 2 puff IH BID #1 inhaler 10/07/16 Insulin Aspart Prot/Insuln Asp [Novolog Mix 70-30 Flexpen Syrn] 32 unit SQ BID # 1 box 10/07/16 Losartan Potassium [Cozaar -] 25 mg PO DAILY #30 tablet 10/07/16 Roflumilast [Daliresp -] 500 mcg PO DAILY #30 tablet 10/07/16 Sodium Chloride Nasal [place] [[place] Nasal [place] -] 2 spray NS BID PRN #1 bottle 10/07/16 Oxycodone HCl [Roxicodone] 15 mg PO Q4HWA PRN 11/22/16 Albuterol 2.5/Ipratropium 0.5 [Duoneb -] 1 amp NEB QIDR amp 12/01/16 Furosemide [Lasix -] 60 mg PO BID@0600,1400 tablet 12/01/16 Prednisone [Deltasone -] 20 mg PO BID #60 tablet 12/01/16 Family Disease History - Family Disease History Family Disease History: Diabetes: Brother, Heart Disease: Brother Review of Systems - Review of Systems Constitutional: denies: Chills Cardiovascular: reports: Shortness of Breath. denies: Chest Pain, Palpitations Respiratory: reports: SOB. denies: Cough, Hemoptysis, Orthopnea, PND Gastrointestinal: reports: Rectal Bleeding. denies: Abdominal Pain, Constipation, Diarrhea, Nausea, Vomiting Genitourinary: denies: Dysuria Musculoskeletal: reports: Back Pain Neurological: denies: Dizziness, Headache, Seizure, Syncope Vital Signs: Vital Signs Temperature 98.2 F 12/26/16 06:00 Pulse Rate 85 12/26/16 06:00 Respiratory Rate 18 12/26/16 06:00 Blood Pressure 131/72 12/26/16 06:00 O2 Sat by Pulse Oximetry (%) 96 12/25/16 21:00 Neck: Yes: Supple Respiratory: Yes: Rhonchi Gastrointestinal: Yes: Normal Bowel Sounds, Soft. No: Tenderness Cardiovascular: Yes: Regular Rate and Rhythm JVD: No Carotid Bruit: No PMI: Non-Displaced Heart Sounds: Yes: S1, S2 Murmur: Yes: Systolic Murmur, Grade 1 Edema: Yes Edema: LLE: 2+, RLE: 2+ - Other Data Labs, Other Data: INR, PTT INR 1.04 (0.82-1.09) 12/24/16 14:35 Laboratory Results - last 24 hr 12/25/16 12/25/16 12/25/16 06:30 11:51 16:00 WBC 13.8 H D RBC 2.99 L Hgb 8.8 L Hct 27.6 L MCV 92.3 MCHC 32.0 RDW 17.6 H Plt Count 306 MPV 9.0 Sodium 142 Potassium 3.9 Chloride 103 Carbon Dioxide 27 Anion Gap 12 BUN 55 H Creatinine 1.7 H Creat Clearance w eGFR 39.82 POC Glucometer 167 Random Glucose 102 D Calcium 9.2 Total Bilirubin 0.3 AST 18 D ALT 21 Alkaline Phosphatase 49 Total Protein 6.9 Albumin 3.4 Lipase 115 Stool Occult Blood 12/25/16 12/25/16 12/25/16 16:49 20:57 21:00 WBC RBC Hgb Hct MCV MCHC RDW Plt Count MPV Sodium Potassium Chloride Carbon Dioxide Anion Gap BUN Creatinine Creat Clearance w eGFR POC Glucometer 372 174 Random Glucose Calcium Total Bilirubin AST ALT Alkaline Phosphatase Total Protein Albumin Lipase Stool Occult Blood Negative Sinus rhythm Imaging - Results Chest X-ray: Report Reviewed EKG: Report Reviewed Problem List - Problems (1) Anemia Code(s): D64.9 - ANEMIA, UNSPECIFIED Qualifiers: Anemia type: unspecified type Qualified Code(s): D64.9 - Anemia, unspecified (2) Chronic respiratory failure with hypoxia and hypercapnia Code(s): J96.11 - CHRONIC RESPIRATORY FAILURE WITH HYPOXIA J96.12 - CHRONIC RESPIRATORY FAILURE WITH HYPERCAPNIA (3) Diabetes mellitus, insulin dependent (IDDM), uncontrolled Code(s): E10.65 - TYPE 1 DIABETES MELLITUS WITH HYPERGLYCEMIA Qualifiers: Diabetes mellitus complication status: without complication Qualified Code(s): E10.9 - Type 1 diabetes mellitus without complications (4) GI bleed Code(s): K92.2 - GASTROINTESTINAL HEMORRHAGE, UNSPECIFIED (5) HTN (hypertension) Code(s): I10 - ESSENTIAL (PRIMARY) HYPERTENSION Qualifiers: Hypertension type: essential hypertension Qualified Code(s): I10 - Essential (primary) hypertension (6) Hyperlipidemia LDL goal < 100 Code(s): E78.5 - HYPERLIPIDEMIA, UNSPECIFIED (7) Hypertriglyceridemia Code(s): E78.1 - PURE HYPERGLYCERIDEMIA (8) CKD (chronic kidney disease) Code(s): N18.9 - CHRONIC KIDNEY DISEASE, UNSPECIFIED Qualifiers: Chronic kidney disease stage: unspecified stage Qualified Code(s): N18.9 - Chronic kidney disease, unspecified (9) COPD (chronic obstructive pulmonary disease) Code(s): J44.9 - CHRONIC OBSTRUCTIVE PULMONARY DISEASE, UNSPECIFIED Qualifiers : COPD type: chronic bronchitis (10) Chronic back pain greater than 3 months duration Code(s): M54.9 - DORSALGIA, UNSPECIFIED G89.29 - OTHER CHRONIC PAIN Assessment/Plan 1. GI bleed with anemia 2. History of LV diastolic failure 3. COPD 4. Insulin dependent type 2 diabetes mellitus 5. Hypercholesterolemia 6. CKD 7. HTN/HCVD PLAN: 1. GI evaluation for endoscopy/colonoscopy 2. Continue present cardiac medications - Hyzaar and Cardizem CD 3. Continue Lasix and monitor I/Os and daily weight 4. Continue bronchodilators, O2 and steroids as tolerated 5. Transfuse PRBC as needed and monitor CBC Further plans are to follow - Patient is of Dr. Stephen Silver MD
[2016-12-26 08:16] LABS: ALBUMIN 3.1 g/dl (3.4-5.0)
[2016-12-26 08:20] LABS: BILIRUBIN,TOTAL 0.4 mg/dL (0.2-1.0); COCKROFT - GAULT 57.95; CREATININE 1.7 mg/dL (0.7-1.3); TOT PROT 6.6 g/dl (6.4-8.2)
--- NOTE | 2016-12-26 08:21 | EKG ---
Test Reason : Blood Pressure : / mmHG Vent. Rate : 087 BPM Atrial Rate : 087 BPM P-R Int : 182 ms QRS Dur : 074 ms QT Int : 356 ms P-R-T Axes : 035 -33 063 degrees QTc Int : 428 ms SINUS RHYTHM WITH MARKED SINUS ARRHYTHMIA POSSIBLE LEFT ATRIAL ENLARGEMENT LEFT AXIS DEVIATION LEFT VENTRICULAR HYPERTROPHY ABNORMAL ECG WHEN COMPARED WITH ECG OF 22-NOV-2016 15:46, NO SIGNIFICANT CHANGE WAS FOUND Confirmed by ANKITA ELENA, JOHN ([id number]) on 12/26/2016 8:20:53 AM Referred By: Confirmed By:JOHN LUCIANO MD
--- NOTE | 2016-12-26 09:00 | PN ---
Progress Note, Physician History of Present Illness: NO CP COUGH--CHRONIC - Current Medication List Current Medications: Active Medications Acetaminophen (Tylenol -) 650 mg PO Q6H PRN PRN Reason: FEVER OR PAIN Albuterol/Ipratropium (Duoneb -) 1 amp NEB Q6H PRN PRN Reason: SHORTNESS OF BREATH Last Admin: 12/26/16 06:38 Dose: 1 amp Allopurinol (Zyloprim -) 300 mg PO DAILY [facility] Last Admin: 12/25/16 10:19 Dose: 300 mg Aspirin (Ecotrin -) 81 mg PO DAILY [facility] Last Admin: 12/25/16 10:19 Dose: 81 mg Bisacodyl (Dulcolax -) 10 mg PO ONCE ONE Stop: 12/26/16 16:01 Budesonide/Formoterol Fumarate (Symbicort 160/4.5mcg -) 2 puff IH BID [facility] Last Admin: 12/25/16 21:22 Dose: 2 puff Diltiazem HCl (Cardizem Cd -) 120 mg PO DAILY [facility] Last Admin: 12/25/16 10:19 Dose: 120 mg Docusate Sodium (Colace -) 100 mg PO BID PRN PRN Reason: CONSTIPATION Docusate Sodium (Colace -) 300 mg PO HS [facility] Last Admin: 12/25/16 21:23 Dose: 300 mg Fentanyl (Duragesic 75mcg Patch -) 1 patch TD Q72H [facility] Last Admin: 12/24/16 23:03 Dose: 1 patch Ferrous Sulfate (Feosol -) 325 mg PO DAILY [facility] Last Admin: 12/25/16 10:18 Dose: 325 mg Furosemide (Lasix Injection -) 40 mg IVPUSH BID@0600,1400 [facility] Last Admin: 12/26/16 05:29 Dose: 40 mg Gemfibrozil (Lopid -) 600 mg PO BID@0700,1630 [facility] Last Admin: 12/26/16 06:10 Dose: 600 mg HCTZ/Losartan Potassium (Hyzaar -) 1 tab PO DAILY [facility] Last Admin: 12/25/16 11:49 Dose: 1 tab Hydromorphone HCl (Dilaudid Injection -) 2 mg IVPB Q6H PRN PRN Reason: PAIN Last Admin: 12/25/16 21:42 Dose: 2 mg Pantoprazole Sodium 80 mg/ (Sodium Chloride) 100 mls @ 10 mls/hr IVPB Q10H [facility] PRN Reason: 8 MG/HR Last Admin: 12/25/16 21:25 Dose: 10 mls/hr Insulin Aspart (Novolog Vial Sliding Scale -) 1 vial SQ [facility] PRN Reason: Protocol Last Admin: 12/26/16 06:33 Dose: Not Given Insulin Aspart (Novolog Mix 70/30 Vial) 32 units SQ BIDAC [facility] Last Admin: 12/26/16 06:33 Dose: Not Given Lactulose (Cephulac (Oral Use)) 20 gm PO Q8H PRN PRN Reason: CONSTIPATION Last Admin: 12/25/16 18:54 Dose: 20 gm Metoclopramide HCl (Reglan -) 10 mg PO [facility] Last Admin: 12/26/16 06:11 Dose: 10 mg Miscellaneous (Duragesic Patch Waste) 1 each TD PRN PRN PRN Reason: PAIN Oxycodone HCl (Roxicodone -) 15 mg PO Q6H PRN PRN Reason: PAIN Polyethylene Glycol (Miralax (For Bowel Prep) -) 255 gm PO ONCE ONE Stop: 12/26/16 16:01 Prednisone (Deltasone -) 20 mg PO BID [facility] Last Admin: 12/25/16 21:24 Dose: 20 mg Ranitidine HCl (Zantac -) 150 mg PO BID [facility] Last Admin: 12/25/16 21:23 Dose: 150 mg Roflumilast (Daliresp -) 500 mcg PO DAILY [facility] Last Admin: 12/25/16 12:00 Dose: Not Given Senna (Senna -) 1 tab PO BID [facility] Last Admin: 12/25/16 21:23 Dose: 1 tab Sitagliptin Phosphate (Januvia -) 25 mg PO DAILY@0700 [facility] Last Admin: 12/26/16 06:33 Dose: Not Given Sodium Chloride ([place] Nasal [place] -) 2 spray NS Q12H PRN PRN Reason: NASAL CONGESTION Tamsulosin HCl (Flomax -) 0.4 mg PO BID [facility] Last Admin: 12/25/16 21:23 Dose: 0.4 mg Terazosin HCl (Hytrin -) 5 mg PO HS [facility] Last Admin: 12/25/16 22:10 Dose: 5 mg - Objective Vital Signs: Vital Signs Temperature 98.2 F 12/26/16 06:00 Pulse Rate 85 12/26/16 06:00 Respiratory Rate 18 12/26/16 06:00 Blood Pressure 131/72 12/26/16 06:00 O2 Sat by Pulse Oximetry (%) 96 12/25/16 21:00 Cardiovascular: Yes: Regular Rate and Rhythm Respiratory: Yes: On Nasal O2, Rales, Rhonchi Gastrointestinal: Yes: Normal Bowel Sounds, Soft. No: Tenderness Labs: CBC, BMP 12/26/16 05:35 12/26/16 05:35 INR, PTT INR 1.04 (0.82-1.09) 12/24/16 14:35 Problem List - Problems (1) Anemia Assessment/Plan: FOLLOW LABS MONITOR AFTER PRBC GI CONSULT NOTED FOR ENDOSCOPY--CARDIO AND PULM CLEARANCE PPI Code(s): D64.9 - ANEMIA, UNSPECIFIED Qualifiers: Anemia type: unspecified type Qualified Code(s): D64.9 - Anemia, unspecified (2) Rectal bleed Assessment/Plan: ABOVE MONITOR Code(s): K62.5 - HEMORRHAGE OF ANUS AND RECTUM (3) Diabetes mellitus, insulin dependent (IDDM), uncontrolled Assessment/Plan: BGM SS ENDO Code(s): E10.65 - TYPE 1 DIABETES MELLITUS WITH HYPERGLYCEMIA Qualifiers: Diabetes mellitus complication status: without complication Qualified Code(s): E10.9 - Type 1 diabetes mellitus without complications (4) HTN (hypertension) Assessment/Plan: MONITOR BP Code(s): I10 - ESSENTIAL (PRIMARY) HYPERTENSION Qualifiers: Hypertension type: essential hypertension Qualified Code(s): I10 - Essential (primary) hypertension (5) CHF (congestive heart failure) Assessment/Plan: IV LASIX Code(s): I50.9 - HEART FAILURE, UNSPECIFIED Qualifiers: Congestive heart failure type: diastolic (6) COPD (chronic obstructive pulmonary disease) Assessment/Plan: NEBS PREDNISONE Code(s): J44.9 - CHRONIC OBSTRUCTIVE PULMONARY DISEASE, UNSPECIFIED Qualifiers : COPD type: chronic bronchitis
[2016-12-26] MEDS: ROFLUMILAST 500 MCG TABLET PO SCH ×2 (10:00→11:09)
--- NOTE | 2016-12-26 10:07 | PN ---
Progress Note (short form) - Note Progress Note: S: 71 year old gentleman, history of COPD, s/p hypoxic respiratory failure, hypertension, HCVD, history of chronic kidney disease, insulin dependent diabetes mellitus, history of diverticulosis, chronic back syndrome, hyperlipidemia, admitted with painless rectal bleeding, started over 1 week ago. No abdominal pain or discomfort reported. No history of change in bowel habits. Patient is scheduled to undergo an endoscopy. Has chronic back pain. Active Medications Generic Name Dose Route Start Last Admin Trade Name Freq PRN Reason Stop Dose Admin Acetaminophen 650 mg 12/24/16 21:16 Tylenol - PO Q6H PRN FEVER OR PAIN Albuterol/Ipratropium 1 amp 12/24/16 21:16 12/26/16 06:38 Duoneb - NEB 1 amp Q6H PRN Administration SHORTNESS OF BREATH Albuterol/Ipratropium 1 amp 12/26/16 12:00 Duoneb - NEB QIDR JOSE LUIS Allopurinol 300 mg 12/25/16 10:00 12/25/16 10:19 Zyloprim - PO 300 mg DAILY JOSE LUIS Administration Aspirin 81 mg 12/25/16 10:00 12/25/16 10:19 Ecotrin - PO 81 mg DAILY JOSE LUIS Administration Bisacodyl 10 mg 12/26/16 16:00 Dulcolax - PO 12/26/16 16:01 ONCE ONE Budesonide/Formoterol Fumarate 2 puff 12/24/16 22:00 12/25/16 21:22 Symbicort 160/4.5mcg - IH 2 puff BID JOSE LUIS Administration Diltiazem HCl 120 mg 12/25/16 10:00 12/25/16 10:19 Cardizem Cd - PO 120 mg DAILY JOSE LUIS Administration Docusate Sodium 100 mg 12/24/16 21:16 Colace - PO BID PRN CONSTIPATION Docusate Sodium 300 mg 12/24/16 22:00 12/25/16 21:23 Colace - PO 300 mg HS JOSE LUIS Administration Fentanyl 1 patch 12/24/16 22:30 12/24/16 23:03 Duragesic 75mcg Patch - TD 1 patch Q72H JOSE LUIS Administration Ferrous Sulfate 325 mg 12/25/16 10:00 12/25/16 10:18 Feosol - PO 325 mg DAILY JOSE LUIS Administration Furosemide 40 mg 12/25/16 14:00 12/26/16 05:29 Lasix Injection - IVPUSH 40 mg BID@0600,1400 JOSE LUIS Administration Furosemide 40 mg 12/26/16 09:00 Lasix Injection - IVPUSH 12/26/16 09:01 ONCE ONE Gemfibrozil 600 mg 12/25/16 07:00 12/26/16 06:10 Lopid - PO 600 mg BID@0700,1630 JOSE LUIS Administration HCTZ/Losartan Potassium 1 tab 12/25/16 10:00 12/25/16 11:49 Hyzaar - PO 1 tab DAILY JOSE [facility]IS Administration Hydromorphone HCl 2 mg 12/25/16 21:21 12/25/16 21:42 Dilaudid Injection - IVPB 2 mg Q6H PRN Administration PAIN Pantoprazole Sodium 80 mg/ 100 mls @ 10 mls/hr 12/25/16 08:45 12/25/16 21:25 Sodium Chloride IVPB 10 mls/hr Q10H JOSE LUIS Administration 8 MG/HR Insulin Aspart 1 vial 12/24/16 22:00 12/26/16 06:33 Novolog Vial Sliding Scale - SQ Not Given ACHS [facility] Protocol Insulin Aspart 32 units 12/25/16 07:00 12/26/16 06:33 Novolog Mix 70/30 Vial SQ Not Given BIDAC JOSE LUIS Lactulose 20 gm 12/24/16 21:16 12/25/16 18:54 Cephulac (Oral Use) PO 20 gm Q8H PRN Administration CONSTIPATION Metoclopramide HCl 10 mg 12/24/16 22:00 12/26/16 06:11 Reglan - PO 10 mg ACHS JOSE LUIS Administration Miscellaneous 1 each 12/24/16 22:30 Duragesic Patch Waste TD PRN PRN PAIN Oxycodone HCl 15 mg 12/24/16 21:16 Roxicodone - PO Q6H PRN PAIN Polyethylene Glycol 255 gm 12/26/16 16:00 Miralax (For Bowel Prep) - PO 12/26/16 16:01 ONCE ONE Prednisone 20 mg 12/24/16 22:00 12/25/16 21:24 Deltasone - PO 20 mg BID JOSE LUIS Administration Ranitidine HCl 150 mg 12/24/16 22:00 12/25/16 21:23 Zantac - PO 150 mg BID JOSE LUIS Administration Roflumilast 500 mcg 12/25/16 10:00 12/25/16 12:00 Daliresp - PO Not Given DAILY JOSE LUIS Senna 1 tab 12/24/16 22:00 12/25/16 21:23 Senna - PO 1 tab BID [facility] Administration Sitagliptin Phosphate 25 mg 12/25/16 07:00 12/26/16 06:33 Januvia - PO Not Given DAILY@0700 JOSE LUIS Sodium Chloride 2 spray 12/24/16 21:16 [place] Nasal [place] - NS Q12H PRN NASAL CONGESTION Tamsulosin HCl 0.4 mg 12/24/16 22:00 12/25/16 21:23 Flomax - PO 0.4 mg BID JOSE LUIS Administration Terazosin HCl 5 mg 12/24/16 22:00 12/25/16 22:10 Hytrin - PO 5 mg HS JOSE LUIS Administration O: 71 year old male was in no acute distress, no pallor, cyanosis, clubbing, or jaundice. Last Vital Signs Temp Pulse Resp BP Pulse Ox 98.2 F 85 18 131/72 96 12/26/16 06:00 12/26/16 06:00 12/26/16 06:00 12/26/16 06:00 12/25/16 21:00 Neck: Supple, no JVD, negative HJR, carotids were equal and upstrokes were normal, no thyromegaly appreciated. Heart: PMI was in the 5th intercostal space, no clear cut heaves or thrills, heart sounds are distant unable to appreciate murmur or gallops. Lungs: Decreased breath sounds at both bases, no extraneous sounds were heard. Abdomen: Soft, nontender, markedly obese, unable to palpate the liver or spleen. Bowel sounds were present. Extremities: No calf tenderness. 3-4+ bilateral pedal edema. DP and PT pulses could not be palpated. CBC, BMP 12/26/16 05:35 12/26/16 05:35 Laboratory Results - last 24 hr 12/24/16 12/25/16 12/25/16 19:00 11:51 16:00 WBC 13.8 H D RBC 2.99 L Hgb 8.8 L Hct 27.6 L MCV 92.3 MCHC 32.0 RDW 17.6 H Plt Count 306 MPV 9.0 Sodium Potassium Chloride Carbon Dioxide Anion Gap BUN Creatinine Creat Clearance w eGFR POC Glucometer 167 Random Glucose Calcium Total Bilirubin AST ALT Alkaline Phosphatase Total Protein Albumin Stool Occult Blood Crossmatch See Detail 12/25/16 12/25/16 12/25/16 16:49 20:57 21:00 WBC RBC Hgb Hct MCV MCHC RDW Plt Count MPV Sodium Potassium Chloride Carbon Dioxide Anion Gap BUN Creatinine Creat Clearance w eGFR POC Glucometer 372 174 Random Glucose Calcium Total Bilirubin AST ALT Alkaline Phosphatase Total Protein Albumin Stool Occult Blood Negative Crossmatch 12/26/16 12/26/16 12/26/16 05:35 05:35 05:53 WBC 11.6 H RBC 2.95 L Hgb 8.9 L Hct 27.5 L MCV 93.4 MCHC 32.1 RDW 17.8 H Plt Count 266 MPV 8.6 Sodium 141 Potassium 4.8 D Chloride 98 Carbon Dioxide 29 Anion Gap 14 BUN 59 H Creatinine 1.7 H Creat Clearance w eGFR 39.82 POC Glucometer 193 Random Glucose 160 H D Calcium 9.0 Total Bilirubin 0.4 D AST 26 D ALT 21 Alkaline Phosphatase 50 Total Protein 6.6 Albumin 3.1 L Stool Occult Blood Crossmatch 12/26/16 09:48 WBC RBC Hgb Hct MCV MCHC RDW Plt Count MPV Sodium Potassium Chloride Carbon Dioxide Anion Gap BUN Creatinine Creat Clearance w eGFR POC Glucometer 3 80 Random Glucose Calcium Total Bilirubin AST ALT Alkaline Phosphatase Total Protein Albumin Stool Occult Blood Crossmatch EKG 12/24/2016 Sinus rhythm with intraatrial conduction abnormality. Occasional single supraventricular premature beats. Left axis deviation. Borderline voltage criteria for LVH (aVL). Non specific ST changes. Baseline artifacts were recorded. Impression: (1) Painless Rectal bleeding, etiology to be determined Code(s): K92.2 - GASTROINTESTINAL HEMORRHAGE, UNSPECIFIED (2) Anemia Code(s): D64.9 - ANEMIA, UNSPECIFIED Qualifiers: Anemia type: unspecified type Qualified Code(s): D64.9 - Anemia, unspecified (3) Chronic obstructive disease Code(s): J96.11 - CHRONIC RESPIRATORY FAILURE J96.12 - CHRONIC RESPIRATORY FAILURE (4) Diabetes mellitus, insulin dependent (IDDM), uncontrolled Code(s): E10.65 - TYPE 1 DIABETES MELLITUS WITH HYPERGLYCEMIA Qualifiers: Diabetes mellitus complication status: without complication Qualified Code(s): E10.9 - Type 1 diabetes mellitus without complications (5) HTN (hypertension) Code(s): I10 - ESSENTIAL (PRIMARY) HYPERTENSION Qualifiers: Hypertension type: essential hypertension Qualified Code(s): I10 - Essential (primary) hypertension (6) Hyperlipidemia LDL goal < 100 Code(s): E78.5 - HYPERLIPIDEMIA, UNSPECIFIED (7) Hypertriglyceridemia Code(s): E78.1 - PURE HYPERGLYCERIDEMIA (8) CKD (chronic kidney disease) Code(s): N18.9 - CHRONIC KIDNEY DISEASE, UNSPECIFIED Qualifiers: Chronic kidney disease stage: unspecified stage Qualified Code(s): N18.9 - Chronic kidney disease, unspecified (10) Chronic back pain greater than 3 months duration Code(s): M54.9 - DORSALGIA, UNSPECIFIED G89.29 - OTHER CHRONIC PAIN (11) Exogenous obesity Recommendations: 1. Awaiting endoscopy. 2. Counseled regarding dietary restrictions and weight reduction. 3. Patient may benefit from pulmonary rehabilitation. Attestation: Documentation prepared by Aashish Coley, acting as medical technicians for Stephen Lawton MD.
[2016-12-26] MEDS: PANTOPRAZOLE SODIUM 80 MG in SODIUM CHLORIDE 100 ML IVPB SCH ×2 (10:50→17:09)
[2016-12-26] MEDS: SENNOSIDES 8.6MG TABLET (FP) PO SCH ×2 (10:51→22:01)
[2016-12-26] MEDS: ALLOPURINOL 300 MG TABLET (FP) PO SCH (10:52)
[2016-12-26] MEDS: ASPIRIN COATED 81 MG TABLET.EC PO SCH (10:52)
[2016-12-26] MEDS: TAMSULOSIN HCL 0.4 MG CAP.ER.24H (FP) PO SCH ×2 (10:53→21:55)
[2016-12-26] MEDS: predniSONE 20 MG TABLET (UD) PO SCH ×2 (10:54→21:55)
[2016-12-26] MEDS: FERROUS SO4 325 MG TABLET (FP) PO SCH (10:54)
[2016-12-26] MEDS: RANITIDINE HCL 150 MG TABLET (FP) PO SCH ×2 (10:54→21:55)
[2016-12-26] MEDS ORDERED: PT OWN MED DRAWER 7, Y5N ONE ×4 (11:04→21:50)
[2016-12-26] MEDS: BUDESONIDE/FORMETEROL FUMARATE 160/4.5 mcg INHALER IH SCH ×2 (11:08→21:55)
[2016-12-26] MEDS: LOSARTAN 50MG/HCTZ 12.5MG 1 TAB (FP) PO SCH (11:09)
[2016-12-26] MEDS: ALBUTEROL SO4 2.5/IPRATROPIUM 0.5 INH SOL 3 ML VIAL.NEB. NEB SCH ×3 (11:36→23:34)
--- NOTE | 2016-12-26 12:07 | PN ---
Progress Note, Physician History of Present Illness: Pt seen and examined at bedside. He is awake and alert. He complains of wheezing. - Current Medication List Current Medications: Active Medications Acetaminophen (Tylenol -) 650 mg PO Q6H PRN PRN Reason: FEVER OR PAIN Albuterol/Ipratropium (Duoneb -) 1 amp NEB Q6H PRN PRN Reason: SHORTNESS OF BREATH Last Admin: 12/26/16 06:38 Dose: 1 amp Albuterol/Ipratropium (Duoneb -) 1 amp NEB QIDR [facility] Last Admin: 12/26/16 11:36 Dose: 1 amp Allopurinol (Zyloprim -) 300 mg PO DAILY [facility] Last Admin: 12/26/16 10:52 Dose: 300 mg Aspirin (Ecotrin -) 81 mg PO DAILY [facility] Last Admin: 12/26/16 10:52 Dose: 81 mg Bisacodyl (Dulcolax -) 10 mg PO ONCE ONE Stop: 12/26/16 16:01 Budesonide/Formoterol Fumarate (Symbicort 160/4.5mcg -) 2 puff IH BID [facility] Last Admin: 12/26/16 11:08 Dose: 2 puff Diltiazem HCl (Cardizem Cd -) 120 mg PO DAILY [facility] Last Admin: 12/26/16 10:54 Dose: 120 mg Docusate Sodium (Colace -) 100 mg PO BID PRN PRN Reason: CONSTIPATION Docusate Sodium (Colace -) 300 mg PO HS [facility] Last Admin: 12/25/16 21:23 Dose: 300 mg Fentanyl (Duragesic 75mcg Patch -) 1 patch TD Q72H [facility] Last Admin: 12/24/16 23:03 Dose: 1 patch Ferrous Sulfate (Feosol -) 325 mg PO DAILY [facility] Last Admin: 12/26/16 10:54 Dose: 325 mg Furosemide (Lasix Injection -) 40 mg IVPUSH BID@0600,1400 [facility] Last Admin: 12/26/16 05:29 Dose: 40 mg Furosemide (Lasix Injection -) 40 mg IVPUSH ONCE ONE Stop: 12/26/16 09:01 Gemfibrozil (Lopid -) 600 mg PO BID@0700,1630 [facility] Last Admin: 12/26/16 06:10 Dose: 600 mg HCTZ/Losartan Potassium (Hyzaar -) 1 tab PO DAILY [facility] Last Admin: 12/26/16 11:09 Dose: 1 tab Hydromorphone HCl (Dilaudid Injection -) 2 mg IVPB Q6H PRN PRN Reason: PAIN Last Admin: 12/25/16 21:42 Dose: 2 mg Pantoprazole Sodium 80 mg/ (Sodium Chloride) 100 mls @ 10 mls/hr IVPB Q10H [facility] PRN Reason: 8 MG/HR Last Admin: 12/26/16 10:50 Dose: 10 mls/hr Insulin Aspart (Novolog Vial Sliding Scale -) 1 vial SQ [facility] PRN Reason: Protocol Last Admin: 12/26/16 06:33 Dose: Not Given Insulin Aspart (Novolog Mix 70/30 Vial) 32 units SQ BIDAC [facility] Last Admin: 12/26/16 06:33 Dose: Not Given Lactulose (Cephulac (Oral Use)) 20 gm PO Q8H PRN PRN Reason: CONSTIPATION Last Admin: 12/25/16 18:54 Dose: 20 gm Metoclopramide HCl (Reglan -) 10 mg PO ACHS [facility] Last Admin: 12/26/16 10:53 Dose: 10 mg Miscellaneous (Duragesic Patch Waste) 1 each TD PRN PRN PRN Reason: PAIN Oxycodone HCl (Roxicodone -) 15 mg PO Q6H PRN PRN Reason: PAIN Polyethylene Glycol (Miralax (For Bowel Prep) -) 255 gm PO ONCE ONE Stop: 12/26/16 16:01 Prednisone (Deltasone -) 20 mg PO BID [facility] Last Admin: 12/26/16 10:54 Dose: 20 mg Ranitidine HCl (Zantac -) 150 mg PO BID [facility] Last Admin: 12/26/16 10:54 Dose: 150 mg Roflumilast (Daliresp -) 500 mcg PO DAILY [facility] Last Admin: 12/26/16 11:09 Dose: 500 mcg Senna (Senna -) 1 tab PO BID [facility] Last Admin: 12/26/16 10:51 Dose: 1 tab Sitagliptin Phosphate (Januvia -) 25 mg PO DAILY@0700 [facility] Last Admin: 12/26/16 06:33 Dose: Not Given Sodium Chloride ([place] Nasal [place] -) 2 spray NS Q12H PRN PRN Reason: NASAL CONGESTION Tamsulosin HCl (Flomax -) 0.4 mg PO BID [facility] Last Admin: 12/26/16 10:53 Dose: 0.4 mg Terazosin HCl (Hytrin -) 5 mg PO HS [facility] Last Admin: 12/25/16 22:10 Dose: 5 mg - Objective Vital Signs: Vital Signs Temperature 98.2 F 12/26/16 06:00 Pulse Rate 85 12/26/16 06:00 Respiratory Rate 18 12/26/16 06:00 Blood Pressure 131/72 12/26/16 06:00 O2 Sat by Pulse Oximetry (%) 96 12/25/16 21:00 Constitutional: Yes: Calm Eyes: Yes: Conjunctiva Clear HENT: Yes: Atraumatic Cardiovascular: Yes: S1, S2 Respiratory: Yes: On Nasal O2, Wheezes Gastrointestinal: Yes: Soft, Abdomen, Obese Genitourinary: Yes: WNL Musculoskeletal: Yes: WNL Edema: Yes Edema: LLE: 1+, RLE: 1+ Neurological: Yes: Oriented Psychiatric: Yes: Oriented Labs: CBC, BMP 12/26/16 05:35 12/26/16 05:35 INR, PTT INR 1.04 (0.82-1.09) 12/24/16 14:35 Problem List - Problems (1) Anemia Code(s): D64.9 - ANEMIA, UNSPECIFIED Qualifiers: Anemia type: unspecified type Qualified Code(s): D64.9 - Anemia, unspecified (2) Diabetes mellitus, insulin dependent (IDDM), uncontrolled Code(s): E10.65 - TYPE 1 DIABETES MELLITUS WITH HYPERGLYCEMIA Qualifiers: Diabetes mellitus complication status: without complication Qualified Code(s): E10.9 - Type 1 diabetes mellitus without complications (3) CKD (chronic kidney disease) Code(s): N18.9 - CHRONIC KIDNEY DISEASE, UNSPECIFIED Qualifiers: Chronic kidney disease stage: unspecified stage Qualified Code(s): N18.9 - Chronic kidney disease, unspecified (4) COPD (chronic obstructive pulmonary disease) Code(s): J44.9 - CHRONIC OBSTRUCTIVE PULMONARY DISEASE, UNSPECIFIED Qualifiers : COPD type: chronic bronchitis Assessment/Plan Current Medications Generic Name Dose Route Start Last Admin Trade Name Freq PRN Reason Stop Dose Admin Acetaminophen 650 mg 12/24/16 21:16 Tylenol - PO Q6H PRN FEVER OR PAIN Albuterol/Ipratropium 1 amp 12/24/16 21:16 12/26/16 06:38 Duoneb - NEB 1 amp Q6H PRN Administration SHORTNESS OF BREATH Albuterol/Ipratropium 1 amp 12/26/16 12:00 12/26/16 11:36 Duoneb - NEB 1 amp QIDR [facility] Administration Allopurinol 300 mg 12/25/16 10:00 12/26/16 10:52 Zyloprim - PO 300 mg DAILY [facility] Administration Aspirin 81 mg 12/25/16 10:00 12/26/16 10:52 Ecotrin - PO 81 mg DAILY [facility] Administration Bisacodyl 10 mg 12/26/16 16:00 Dulcolax - PO 12/26/16 16:01 ONCE ONE Budesonide/Formoterol Fumarate 2 puff 12/24/16 22:00 12/26/16 11:08 Symbicort 160/4.5mcg - IH 2 puff BID [facility] Administration Diltiazem HCl 120 mg 12/25/16 10:00 12/26/16 10:54 Cardizem Cd - PO 120 mg DAILY [facility] Administration Docusate Sodium 100 mg 12/24/16 21:16 Colace - PO BID PRN CONSTIPATION Docusate Sodium 300 mg 12/24/16 22:00 12/25/16 21:23 Colace - PO 300 mg HS [facility] Administration Fentanyl 1 patch 12/24/16 22:30 12/24/16 23:03 Duragesic 75mcg Patch - TD 1 patch Q72H [facility] Administration Ferrous Sulfate 325 mg 12/25/16 10:00 12/26/16 10:54 Feosol - PO 325 mg DAILY [facility] Administration Furosemide 40 mg 12/25/16 14:00 12/26/16 05:29 Lasix Injection - IVPUSH 40 mg BID@0600,1400 [facility] Administration Furosemide 40 mg 12/26/16 09:00 Lasix Injection - IVPUSH 12/26/16 09:01 ONCE ONE Gemfibrozil 600 mg 12/25/16 07:00 12/26/16 06:10 Lopid - PO 600 mg BID@0700,1630 [facility] Administration HCTZ/Losartan Potassium 1 tab 12/25/16 10:00 12/26/16 11:09 Hyzaar - PO 1 tab DAILY [facility] Administration Hydromorphone HCl 2 mg 12/25/16 21:21 12/25/16 21:42 Dilaudid Injection - IVPB 2 mg Q6H PRN Administration PAIN Pantoprazole Sodium 80 mg/ 100 mls @ 10 mls/hr 12/25/16 08:45 12/26/16 10:50 Sodium Chloride IVPB 10 mls/hr Q10H [facility] Administration 8 MG/HR Insulin Aspart 1 vial 12/24/16 22:00 12/26/16 06:33 Novolog Vial Sliding Scale - SQ Not Given ACHS [facility] Protocol Insulin Aspart 32 units 12/25/16 07:00 12/26/16 06:33 Novolog Mix 70/30 Vial SQ Not Given BIDAC [facility] Lactulose 20 gm 12/24/16 21:16 12/25/16 18:54 Cephulac (Oral Use) PO 20 gm Q8H PRN Administration CONSTIPATION Metoclopramide HCl 10 mg 12/24/16 22:00 12/26/16 10:53 Reglan - PO 10 mg ACHS [facility] Administration Miscellaneous 1 each 12/24/16 22:30 Duragesic Patch Waste TD PRN PRN PAIN Oxycodone HCl 15 mg 12/24/16 21:16 Roxicodone - PO Q6H PRN PAIN Polyethylene Glycol 255 gm 12/26/16 16:00 Miralax (For Bowel Prep) - PO 12/26/16 16:01 ONCE ONE Prednisone 20 mg 12/24/16 22:00 12/26/16 10:54 Deltasone - PO 20 mg BID [facility] Administration Ranitidine HCl 150 mg 12/24/16 22:00 12/26/16 10:54 Zantac - PO 150 mg BID [facility] Administration Roflumilast 500 mcg 12/25/16 10:00 12/26/16 11:09 Daliresp - PO 500 mcg DAILY [facility] Administration Senna 1 tab 12/24/16 22:00 12/26/16 10:51 Senna - PO 1 tab BID [facility] Administration Sitagliptin Phosphate 25 mg 12/25/16 07:00 12/26/16 06:33 Januvia - PO Not Given DAILY@0700 [facility] Sodium Chloride 2 spray 12/24/16 21:16 [place] Nasal [place] - NS Q12H PRN NASAL CONGESTION Tamsulosin HCl 0.4 mg 12/24/16 22:00 12/26/16 10:53 Flomax - PO 0.4 mg BID [facility] Administration Terazosin HCl 5 mg 12/24/16 22:00 12/25/16 22:10 Hytrin - PO 5 mg HS [facility] Administration Impression 1. CKD 2. DM 3. HTN 4. CHF 5. COPD 6. anemia 7. BPH 8. insomnia 9. narcotic dependence Plan - cont current meds - cont diuretics, pt on lasix and thiazide - monitor hg - renal function is stable - will follow renal function - GI follow up - cont with arb - discussed compliance with fluid and salt intake - will follow Dr Nathan
--- NOTE | 2016-12-26 12:45 | PN ---
Progress Note, Physician History of Present Illness: pulmonary alert,less congested ,for colonoscopy in am - Current Medication List Current Medications: Active Medications Acetaminophen (Tylenol -) 650 mg PO Q6H PRN PRN Reason: FEVER OR PAIN Albuterol/Ipratropium (Duoneb -) 1 amp NEB Q6H PRN PRN Reason: SHORTNESS OF BREATH Last Admin: 12/26/16 06:38 Dose: 1 amp Albuterol/Ipratropium (Duoneb -) 1 amp NEB QIDR [facility] Last Admin: 12/26/16 11:36 Dose: 1 amp Allopurinol (Zyloprim -) 300 mg PO DAILY [facility] Last Admin: 12/26/16 10:52 Dose: 300 mg Aspirin (Ecotrin -) 81 mg PO DAILY [facility] Last Admin: 12/26/16 10:52 Dose: 81 mg Bisacodyl (Dulcolax -) 10 mg PO ONCE ONE Stop: 12/26/16 16:01 Budesonide/Formoterol Fumarate (Symbicort 160/4.5mcg -) 2 puff IH BID [facility] Last Admin: 12/26/16 11:08 Dose: 2 puff Diltiazem HCl (Cardizem Cd -) 120 mg PO DAILY [facility] Last Admin: 12/26/16 10:54 Dose: 120 mg Docusate Sodium (Colace -) 100 mg PO BID PRN PRN Reason: CONSTIPATION Docusate Sodium (Colace -) 300 mg PO HS [facility] Last Admin: 12/25/16 21:23 Dose: 300 mg Fentanyl (Duragesic 75mcg Patch -) 1 patch TD Q72H [facility] Last Admin: 12/24/16 23:03 Dose: 1 patch Ferrous Sulfate (Feosol -) 325 mg PO DAILY [facility] Last Admin: 12/26/16 10:54 Dose: 325 mg Furosemide (Lasix Injection -) 40 mg IVPUSH BID@0600,1400 [facility] Last Admin: 12/26/16 05:29 Dose: 40 mg Furosemide (Lasix Injection -) 40 mg IVPUSH ONCE ONE Stop: 12/26/16 09:01 Gemfibrozil (Lopid -) 600 mg PO BID@0700,1630 [facility] Last Admin: 12/26/16 06:10 Dose: 600 mg HCTZ/Losartan Potassium (Hyzaar -) 1 tab PO DAILY [facility] Last Admin: 12/26/16 11:09 Dose: 1 tab Hydromorphone HCl (Dilaudid Injection -) 2 mg IVPB Q6H PRN PRN Reason: PAIN Last Admin: 12/25/16 21:42 Dose: 2 mg Pantoprazole Sodium 80 mg/ (Sodium Chloride) 100 mls @ 10 mls/hr IVPB Q10H [facility] PRN Reason: 8 MG/HR Last Admin: 12/26/16 10:50 Dose: 10 mls/hr Insulin Aspart (Novolog Vial Sliding Scale -) 1 vial SQ [facility] PRN Reason: Protocol Last Admin: 12/26/16 06:33 Dose: Not Given Insulin Aspart (Novolog Mix 70/30 Vial) 32 units SQ BIDAC [facility] Last Admin: 12/26/16 06:33 Dose: Not Given Lactulose (Cephulac (Oral Use)) 20 gm PO Q8H PRN PRN Reason: CONSTIPATION Last Admin: 12/25/16 18:54 Dose: 20 gm Metoclopramide HCl (Reglan -) 10 mg PO [facility] Last Admin: 12/26/16 10:53 Dose: 10 mg Miscellaneous (Duragesic Patch Waste) 1 each TD PRN PRN PRN Reason: PAIN Oxycodone HCl (Roxicodone -) 15 mg PO Q6H PRN PRN Reason: PAIN Polyethylene Glycol (Miralax (For Bowel Prep) -) 255 gm PO ONCE ONE Stop: 12/26/16 16:01 Prednisone (Deltasone -) 20 mg PO BID [facility] Last Admin: 12/26/16 10:54 Dose: 20 mg Ranitidine HCl (Zantac -) 150 mg PO BID [facility] Last Admin: 12/26/16 10:54 Dose: 150 mg Roflumilast (Daliresp -) 500 mcg PO DAILY [facility] Last Admin: 12/26/16 11:09 Dose: 500 mcg Senna (Senna -) 1 tab PO BID [facility] Last Admin: 12/26/16 10:51 Dose: 1 tab Sitagliptin Phosphate (Januvia -) 25 mg PO DAILY@0700 [facility] Last Admin: 12/26/16 06:33 Dose: Not Given Sodium Chloride ([place] Nasal [place] -) 2 spray NS Q12H PRN PRN Reason: NASAL CONGESTION Tamsulosin HCl (Flomax -) 0.4 mg PO BID [facility] Last Admin: 12/26/16 10:53 Dose: 0.4 mg Terazosin HCl (Hytrin -) 5 mg PO HS [facility] Last Admin: 12/25/16 22:10 Dose: 5 mg - Objective Vital Signs: Vital Signs Temperature 97.9 F 12/26/16 10:00 Pulse Rate 101 H 12/26/16 10:00 Respiratory Rate 20 12/26/16 10:00 Blood Pressure 126/74 12/26/16 10:00 O2 Sat by Pulse Oximetry (%) 96 12/25/16 21:00 Constitutional: Yes: Well Nourished, Calm Eyes: Yes: WNL HENT: Yes: WNL Neck: Yes: WNL Cardiovascular: Yes: Regular Rate and Rhythm, S1, S2 Respiratory: Yes: Rhonchi (ann rhonchi) Gastrointestinal: Yes: Normal Bowel Sounds, Soft Extremities: Yes: WNL Edema: Yes Labs: CBC, BMP 12/26/16 05:35 12/26/16 05:35 INR, PTT INR 1.04 (0.82-1.09) 12/24/16 14:35 Problem List - Problems (1) Anemia Code(s): D64.9 - ANEMIA, UNSPECIFIED Qualifiers: Anemia type: unspecified type Qualified Code(s): D64.9 - Anemia, unspecified (2) Cough Code(s): R05 - COUGH (3) HTN (hypertension) Code(s): I10 - ESSENTIAL (PRIMARY) HYPERTENSION Qualifiers: Hypertension type: essential hypertension Qualified Code(s): I10 - Essential (primary) hypertension (4) Rectal bleed Code(s): K62.5 - HEMORRHAGE OF ANUS AND RECTUM (5) [id number] kidney injury Code(s): N17.9 - ACUTE KIDNEY FAILURE, UNSPECIFIED N18.9 - CHRONIC KIDNEY DISEASE, UNSPECIFIED (6) Anemia in chronic kidney disease Code(s): N18.9 - CHRONIC KIDNEY DISEASE, UNSPECIFIED D63.1 - ANEMIA IN CHRONIC KIDNEY DISEASE (7) CKD (chronic kidney disease) Code(s): N18.9 - CHRONIC KIDNEY DISEASE, UNSPECIFIED Qualifiers: Chronic kidney disease stage: unspecified stage Qualified Code(s): N18.9 - Chronic kidney disease, unspecified (8) COPD (chronic obstructive pulmonary disease) Code(s): J44.9 - CHRONIC OBSTRUCTIVE PULMONARY DISEASE, UNSPECIFIED Qualifiers : COPD type: chronic bronchitis (9) Chronic respiratory failure with hypoxia Code(s): J96.11 - CHRONIC RESPIRATORY FAILURE WITH HYPOXIA (10) GERD (gastroesophageal reflux disease) Code(s): K21.9 - GASTRO-ESOPHAGEAL REFLUX DISEASE WITHOUT ESOPHAGITIS (11) Leg edema Code(s): R60.0 - LOCALIZED EDEMA (12) Shortness of breath Code(s): R06.02 - SHORTNESS OF BREATH (13) GI bleed Code(s): K92.2 - GASTROINTESTINAL HEMORRHAGE, UNSPECIFIED (14) Chronic respiratory failure with hypoxia and hypercapnia Code(s): J96.11 - CHRONIC RESPIRATORY FAILURE WITH HYPOXIA J96.12 - CHRONIC RESPIRATORY FAILURE WITH HYPERCAPNIA Assessment/Plan IMP CHRONIC HYPOXEMIC/HYPERCAPNEIC RESPIRATORY FAILURE ADVANCED COPD GI BLEED ANEMIA IDDM ACUTE ON CHRONIC RENAL FAILURE BPH LIKELY OSAS PLAN INHALED BRONCHODILATORS O2 BIPAP AT NIGHT AND PRN PREDNISONE LASIX MONITOR H+H TRANSFUSE PRN MONITOR LYTES,RENAL FUNCTION MONITOR BLOOD SUGARS COLONOSCOPY SLEEP STUDIES OUTPATIENT ABG CONSIDER BIPAP DURING AND POST PROCEDURE DR CEVALLOS Problem List - Problems (1) Anemia Code(s): D64.9 - ANEMIA, UNSPECIFIED Qualifiers: Anemia type: unspecified type Qualified Code(s): D64.9 - Anemia, unspecified (2) Cough Code(s): R05 - COUGH (3) HTN (hypertension) Code(s): I10 - ESSENTIAL (PRIMARY) HYPERTENSION Qualifiers: Hypertension type: essential hypertension Qualified Code(s): I10 - Essential (primary) hypertension (4) Rectal bleed Code(s): K62.5 - HEMORRHAGE OF ANUS AND RECTUM (5) [id number] kidney injury Code(s): N17.9 - ACUTE KIDNEY FAILURE, UNSPECIFIED N18.9 - CHRONIC KIDNEY DISEASE, UNSPECIFIED (6) Anemia in chronic kidney disease Code(s): N18.9 - CHRONIC KIDNEY DISEASE, UNSPECIFIED D63.1 - ANEMIA IN CHRONIC KIDNEY DISEASE (7) CKD (chronic kidney disease) Code(s): N18.9 - CHRONIC KIDNEY DISEASE, UNSPECIFIED Qualifiers: Chronic kidney disease stage: unspecified stage Qualified Code(s): N18.9 - Chronic kidney disease, unspecified (8) COPD (chronic obstructive pulmonary disease) Code(s): J44.9 - CHRONIC OBSTRUCTIVE PULMONARY DISEASE, UNSPECIFIED Qualifiers : COPD type: chronic bronchitis (9) Chronic respiratory failure with hypoxia Code(s): J96.11 - CHRONIC RESPIRATORY FAILURE WITH HYPOXIA (10) GERD (gastroesophageal reflux disease) Code(s): K21.9 - GASTRO-ESOPHAGEAL REFLUX DISEASE WITHOUT ESOPHAGITIS (11) Leg edema Code(s): R60.0 - LOCALIZED EDEMA Qualifiers: Laterality: bilateral Qualified Code(s): R60.0 - Localized edema (12) Shortness of breath Code(s): R06.02 - SHORTNESS OF BREATH (13) GI bleed Code(s): K92.2 - GASTROINTESTINAL HEMORRHAGE, UNSPECIFIED (14) Chronic respiratory failure with hypoxia and hypercapnia Code(s): J96.11 - CHRONIC RESPIRATORY FAILURE WITH HYPOXIA J96.12 - CHRONIC RESPIRATORY FAILURE WITH HYPERCAPNIA
[2016-12-26 15:11] LABS: ARTERIAL BLD GAS O2 SATURATION 92.7 % (90-98.9); ARTERIAL BLOOD GAS BASE EXCESS 2.8 meq/l (-2-2); ARTERIAL BLOOD GAS HCO3 27.8 meq/L (22-26); ARTERIAL BLOOD GAS pH 7.38 (7.35-7.45)
[2016-12-26 15:12] LABS: ALLENS TEST POSITIVE; ART PUNCT SITE LEFT RADIAL; LPM/O2% 21%; PT. ON O2? NO; TYPE OF O2 ROOM AIR
[2016-12-26 15:13] LABS: ARTERIAL BLOOD GAS PO2 66.7 mmHg (70-100)
[2016-12-26] MEDS ORDERED: POLYETHYLENE GLYCOL 3350 255 GM BTL PO ONE (16:00)
[2016-12-26] MEDS ORDERED: BISACODYL 5 MG TABLET.DR (FP) PO ONE ×2 (16:00→17:30)
[2016-12-26] MEDS ORDERED: FUROSEMIDE 40 MG/4 ML INJECTABLE VIAL IVPUSH ONE (18:15)
[2016-12-26] MEDS ORDERED: MAGNESIUM CITRATE 300 ML BOTTLE PO ONE (21:30)
[2016-12-26] MEDS: TERAZOSIN HCL 5 MG CAPSULE PO SCH (21:55)
[2016-12-26] MEDS: DOCUSATE SODIUM 100 MG CAPSULE (FP) PO SCH (22:01)
[2016-12-26] MEDS: HYDROmorphone HCL CARPU-JECT 2 MG/1 ML DISP.SYRIN IVPB PRN (23:32)
[2016-12-27] MEDS: PANTOPRAZOLE SODIUM 80 MG in SODIUM CHLORIDE 100 ML IVPB SCH (03:30)
[2016-12-27] MEDS: GEMFIBROZIL 600 MG TABLET (FP) PO SCH (06:10)
[2016-12-27] MEDS: METOCLOPRAMIDE HCL 10 MG TABLET (FP) PO SCH ×2 (06:10→10:51)
[2016-12-27] MEDS: sitaGLIPtin PHOSPHATE 25 MG TABLET (FP) PO SCH (06:10)
[2016-12-27] MEDS: INSULIN (NOVOLOG MIX 70/30) 100 UNITS/ML MDV SQ SCH (06:10)
[2016-12-27] MEDS: FUROSEMIDE 40 MG/4 ML INJECTABLE VIAL IVPUSH SCH (06:12)
[2016-12-27] MEDS: INSULIN SLIDING SCALE (NOVOLOG) 1 VIAL SQ SCH ×2 (06:25→11:37)
[2016-12-27] MEDS: ALBUTEROL SO4 2.5/IPRATROPIUM 0.5 INH SOL 3 ML VIAL.NEB. NEB SCH ×2 (07:05→11:45)
[2016-12-27] MEDS: ALBUTEROL SO4 2.5/IPRATROPIUM 0.5 INH SOL 3 ML VIAL.NEB. NEB PRN (08:24)
--- NOTE | 2016-12-27 09:57 | PN ---
Progress Note (short form) - Note Progress Note: ADDENDUM: S/P EGD and colon EGD with mercedes esophagitis secondary to steroid containing sprays for COPD Nystatin started and patient advised to rinse mouth well after use Colon with 4 polyps removed Large internal hemorrhoids noted and likely source of BRBPR Needs to continue laxatives and stool softeners as opt If bleeding continues or worsens, may need surgical eval FF
--- NOTE | 2016-12-27 10:13 | DS ---
Physical Examination Vital Signs: Vital Signs Temperature 98.2 F 12/27/16 09:53 Pulse Rate 98 H 12/27/16 09:53 Respiratory Rate 20 12/27/16 09:53 Blood Pressure 155/85 12/27/16 09:53 O2 Sat by Pulse Oximetry (%) 100 12/27/16 09:53 Constitutional: Yes: Calm Neck: Yes: Trachea Midline Cardiovascular: Yes: Regular Rate and Rhythm, S1, S2 Respiratory: Yes: Rhonchi Gastrointestinal: Yes: Normal Bowel Sounds, Soft Edema: Yes (decreased) Neurological: Yes: Alert, Oriented Labs: CBC, BMP 12/26/16 05:35 12/26/16 05:35 Discharge Summary Reason For Visit: ANEMIA; RECTAL HEMORRHAGE Current Active Problems Anemia (Acute) [place] (Acute) Chronic respiratory failure with hypoxia and hypercapnia (Acute) Cough (Acute) Diabetes mellitus, insulin dependent (IDDM), uncontrolled (Acute) GI bleed (Acute) HTN (hypertension) (Acute) Hyperlipidemia LDL goal < 100 (Acute) Hypertriglyceridemia (Acute) Rectal bleed (Acute) Tachycardia (Acute) Wheeze (Acute) Hospital Course: 71 year old male presenting with his , with a significant past medical history of COPD (on home O2), HLD, CHF, IDDM, stomach ulcers and diverticulosis who presents to the emergency department after being sent for eval of anemia. He states that he has been weak as well as blood in his stool for the pat 6 days. He describes his stool as mixed with bright red blood and brown stool, which has been occurring for the last couple of days. He notes that he has had blood transfusions in the past due to ulcers. He states that he last saw his PMD 4 days ago. Pt endorses having cough with yellow mucus since he left the hospital and is unchanged. The patient denies chest pain, shortness of breath, headache and dizziness. Denies fever, chills, nausea, vomit, diarrhea and constipation. Denies dysuria, frequency, urgency and hematuria. h/h 7.9 /24.5 got one unit of prbc seen by GI S/P EGD and colon EGD with mercedes esophagitis secondary to steroid containing sprays for COPD Nystatin started and patient advised to rinse mouth well after use Colon with 4 polyps removed Large internal hemorrhoids noted and likely source of BRBPR Needs to continue laxatives and stool softeners as opt If bleeding continues or worsens, may need surgical eval leg edema on iv lasix bid - significant reduction in leg edema will change to po medication Condition: Guarded - Instructions Diet, Activity, Other Instructions: nystatin swish and swallow for 10 days rinse mouth well after inhaler use FU with PMD in 2 weeks Disposition: HOME - Home Medications Comprehensive Discharge Medication List: Ambulatory Orders Aspirin [ASA -] 81 mg PO Q2D@1000 #30 tab.chew 12/27/14 Gemfibrozil [Lopid -] 600 mg PO BID #180 tablet 12/27/14 Terazosin HCl [Hytrin -] 5 mg PO HS #30 capsule 12/27/14 Cyanocobalamin [Vitamin B12 -] 1 g PO DAILY 12/19/15 Lactulose 10 gm PO DAILY 12/20/15 Iron 325 mg PO BID 02/22/16 Tamsulosin HCl [Flomax -] 0.4 mg PO BID 02/22/16 FENTANYL 75mcg PATCH [DURAGESIC 75mcg PATCH -] 1 patch TD Q72H 02/23/16 Albuterol Sulfate Inhaler - [Ventolin HFA Inhaler -] 1 - 2 inh PO Q4H #1 inhaler 03/11/16 Docusate Sodium [Colace -] 100 mg PO BID #60 capsule 03/11/16 Diltiazem Cd [Cardizem Cd -] 120 mg PO DAILY 05/05/16 Naloxegol Oxalate [Movantik] 25 mg PO DAILY PRN 05/05/16 Sitagliptin Phosphate [Januvia] 25 mg PO DAILY 05/05/16 Metoclopramide HCl [Reglan -] 5 mg PO TIDAC tablet 05/09/16 Sennosides [Senna -] 2 tab PO HS PRN #0 tablet 05/09/16 Allopurinol [Zyloprim -] 100 mg PO DAILY 09/28/16 Ranitidine HCl 300 mg PO DAILY 09/28/16 Sennosides [Senokot] 8.6 mg PO DAILY 09/28/16 Acetaminophen [Tylenol .Regular Strength -] 650 mg PO Q6H PRN #0 tablet Budesonide/Formeterol Fumarate [SYMBICORT 160/4.5mcg -] 2 puff IH BID #1 inhaler 10/07/16 Insulin Aspart Prot/Insuln Asp [Novolog Mix 70-30 Flexpen Syrn] 32 unit SQ BID # 1 box 10/07/16 Losartan Potassium [Cozaar -] 25 mg PO DAILY #30 tablet 10/07/16 Roflumilast [Daliresp -] 500 mcg PO DAILY #30 tablet 10/07/16 Sodium Chloride Nasal [place] [[place] Nasal [place] -] 2 spray NS BID PRN #1 bottle 10/07/16 Oxycodone HCl [Roxicodone] 15 mg PO Q4HWA PRN 11/22/16 Albuterol 2.5/Ipratropium 0.5 [Duoneb -] 1 amp NEB QIDR amp 12/01/16 Furosemide [Lasix -] 60 mg PO BID@0600,1400 tablet 12/01/16 Prednisone [Deltasone -] 20 mg PO BID #60 tablet 12/01/16
[2016-12-27] MEDS ORDERED: HYDROmorphone HCL CARPU-JECT 2 MG/1 ML DISP.SYRIN IVPB ONE (10:45)
[2016-12-27] MEDS ORDERED: PT OWN MED DRAWER 7, Y5N ONE (10:45)
[2016-12-27] MEDS: predniSONE 20 MG TABLET (UD) PO SCH (10:51)
[2016-12-27] MEDS: ASPIRIN COATED 81 MG TABLET.EC PO SCH (10:51)
[2016-12-27] MEDS: FERROUS SO4 325 MG TABLET (FP) PO SCH (10:51)
[2016-12-27] MEDS: ALLOPURINOL 300 MG TABLET (FP) PO SCH (10:51)
[2016-12-27] MEDS: TAMSULOSIN HCL 0.4 MG CAP.ER.24H (FP) PO SCH (10:51)
[2016-12-27] MEDS: SENNOSIDES 8.6MG TABLET (FP) PO SCH (10:51)
[2016-12-27] MEDS: RANITIDINE HCL 150 MG TABLET (FP) PO SCH (10:51)
[2016-12-27] MEDS: LOSARTAN 50MG/HCTZ 12.5MG 1 TAB (FP) PO SCH (10:52)
[2016-12-27] MEDS: ROFLUMILAST 500 MCG TABLET PO SCH (10:52)
[2016-12-27] MEDS: BUDESONIDE/FORMETEROL FUMARATE 160/4.5 mcg INHALER IH SCH (10:55)
[2016-12-27] MEDS ORDERED: INSULIN (NOVOLOG) ASPART 100 UNITS/ML 10ML VIAL ONE (11:16)
[2016-12-27] MEDS ORDERED: NYSTATIN 500,000 UNITS/5 ML SUSPENSION PO SCH (12:00)
[2016-12-27 12:01] VITALS: PULSE 88
--- NOTE | 2016-12-27 12:35 | PN ---
Progress Note, Physician History of Present Illness: S/P EGD and colon results appreciated, dyspnea and lower extremity edema improving with diuresis. - Current Medication List Current Medications: Active Medications Acetaminophen (Tylenol -) 650 mg PO Q6H PRN PRN Reason: FEVER OR PAIN Albuterol/Ipratropium (Duoneb -) 1 amp NEB Q6H PRN PRN Reason: SHORTNESS OF BREATH Last Admin: 12/27/16 08:24 Dose: 1 amp Albuterol/Ipratropium (Duoneb -) 1 amp NEB QIDR [facility] Last Admin: 12/27/16 11:45 Dose: 1 amp Allopurinol (Zyloprim -) 300 mg PO DAILY [facility] Last Admin: 12/27/16 10:51 Dose: 300 mg Aspirin (Ecotrin -) 81 mg PO DAILY [facility] Last Admin: 12/27/16 10:51 Dose: 81 mg Budesonide/Formoterol Fumarate (Symbicort 160/4.5mcg -) 2 puff IH BID [facility] Last Admin: 12/27/16 10:55 Dose: 2 puff Diltiazem HCl (Cardizem Cd -) 120 mg PO DAILY [facility] Last Admin: 12/27/16 10:51 Dose: 120 mg Docusate Sodium (Colace -) 100 mg PO BID PRN PRN Reason: CONSTIPATION Docusate Sodium (Colace -) 300 mg PO HS [facility] Last Admin: 12/26/16 22:01 Dose: Not Given Fentanyl (Duragesic 75mcg Patch -) 1 patch TD Q72H [facility] Last Admin: 12/24/16 23:03 Dose: 1 patch Ferrous Sulfate (Feosol -) 325 mg PO DAILY [facility] Last Admin: 12/27/16 10:51 Dose: 325 mg Furosemide (Lasix -) 60 mg PO BID@0600,1400 [facility] Gemfibrozil (Lopid -) 600 mg PO BID@0700,1630 [facility] Last Admin: 12/27/16 06:10 Dose: Not Given HCTZ/Losartan Potassium (Hyzaar -) 1 tab PO DAILY [facility] Last Admin: 12/27/16 10:52 Dose: 1 tab Hydromorphone HCl (Dilaudid Injection -) 2 mg IVPB Q6H PRN PRN Reason: PAIN Last Admin: 12/26/16 23:32 Dose: 2 mg Insulin Aspart (Novolog Vial Sliding Scale -) 1 vial SQ [facility] PRN Reason: Protocol Last Admin: 12/27/16 11:37 Dose: 2 units Insulin Aspart (Novolog Mix 70/30 Vial) 32 units SQ BIDAC [facility] Last Admin: 12/27/16 06:10 Dose: Not Given Lactulose (Cephulac (Oral Use)) 20 gm PO Q8H PRN PRN Reason: CONSTIPATION Last Admin: 12/25/16 18:54 Dose: 20 gm Metoclopramide HCl (Reglan -) 10 mg PO [facility] Last Admin: 12/27/16 10:51 Dose: 10 mg Miscellaneous (Duragesic Patch Waste) 1 each TD PRN PRN PRN Reason: PAIN Nystatin (Nystatin Oral Suspension -) 500,000 units PO Q6HPO [facility] Last Admin: 12/27/16 11:37 Dose: 500,000 units Oxycodone HCl (Roxicodone -) 15 mg PO Q6H PRN PRN Reason: PAIN Prednisone (Deltasone -) 20 mg PO BID [facility] Last Admin: 12/27/16 10:51 Dose: 20 mg Ranitidine HCl (Zantac -) 150 mg PO BID [facility] Last Admin: 12/27/16 10:51 Dose: 150 mg Roflumilast (Daliresp -) 500 mcg PO DAILY [facility] Last Admin: 12/27/16 10:52 Dose: 500 mcg Senna (Senna -) 1 tab PO BID [facility] Last Admin: 12/27/16 10:51 Dose: 1 tab Sitagliptin Phosphate (Januvia -) 25 mg PO DAILY@0700 [facility] Last Admin: 12/27/16 06:10 Dose: Not Given Sodium Chloride ([place] Nasal [place] -) 2 spray NS Q12H PRN PRN Reason: NASAL CONGESTION Tamsulosin HCl (Flomax -) 0.4 mg PO BID [facility] Last Admin: 12/27/16 10:51 Dose: 0.4 mg Terazosin HCl (Hytrin -) 5 mg PO HS [facility] Last Admin: 12/26/16 21:55 Dose: 5 mg - Objective Vital Signs: Vital Signs Temperature 98.2 F 12/27/16 09:53 Pulse Rate 88 12/27/16 12:01 Respiratory Rate 20 12/27/16 09:53 Blood Pressure 155/85 12/27/16 09:53 O2 Sat by Pulse Oximetry (%) 97 12/27/16 12:01 Constitutional: Yes: No Distress, Calm Neck: Yes: Supple Cardiovascular: Yes: Regular Rate and Rhythm Respiratory: Yes: Regular, Diminished Gastrointestinal: Yes: Normal Bowel Sounds, Soft, Abdomen, Obese Edema: Yes Edema: LLE: 2+, RLE: 2+ Labs: CBC, BMP 12/26/16 05:35 12/26/16 05:35 INR, PTT INR 1.04 (0.82-1.09) 12/24/16 14:35 Assessment/Plan 1. GI bleed, EGD shows candid esophagitis, colon showed large internal hemorrhoids 2. History of LV diastolic failure 3. Chronic hypoxemic/hypercapneic respiratory failure with advanced COPD 4. Insulin dependent type 2 diabetes mellitus 5. Hypercholesterolemia 6. Acute on CKD improving 7. HTN/HCVD 8. OSAS PLAN: 1. Continue present cardiac medications including ASA 81 qd, Hyzaar 1 qd, Lopid 600 bid, Hytrin 5 qhs, and Cardizem CD 120 qd 2. Continue Lasix 60 bid with monitor diuretic response, renal fxn and electrolytes 3. Continue bronchodilators, O2, Daliresp, oral steroids with GI protection and bipap nightly as tolerated, sleep study as outpatient 4. Transfuse PRBC as needed and monitor CBC
--- NOTE | 2016-12-27 12:46 | PN ---
Progress Note, Physician History of Present Illness: Pt seen and examined at bedside. He is awake and alert. He feels that his breathing is improved. - Current Medication List Current Medications: Active Medications Acetaminophen (Tylenol -) 650 mg PO Q6H PRN PRN Reason: FEVER OR PAIN Albuterol/Ipratropium (Duoneb -) 1 amp NEB Q6H PRN PRN Reason: SHORTNESS OF BREATH Last Admin: 12/27/16 08:24 Dose: 1 amp Albuterol/Ipratropium (Duoneb -) 1 amp NEB QIDR [facility] Last Admin: 12/27/16 11:45 Dose: 1 amp Allopurinol (Zyloprim -) 300 mg PO DAILY [facility] Last Admin: 12/27/16 10:51 Dose: 300 mg Aspirin (Ecotrin -) 81 mg PO DAILY [facility] Last Admin: 12/27/16 10:51 Dose: 81 mg Budesonide/Formoterol Fumarate (Symbicort 160/4.5mcg -) 2 puff IH BID [facility] Last Admin: 12/27/16 10:55 Dose: 2 puff Diltiazem HCl (Cardizem Cd -) 120 mg PO DAILY [facility] Last Admin: 12/27/16 10:51 Dose: 120 mg Docusate Sodium (Colace -) 100 mg PO BID PRN PRN Reason: CONSTIPATION Docusate Sodium (Colace -) 300 mg PO HS [facility] Last Admin: 12/26/16 22:01 Dose: Not Given Fentanyl (Duragesic 75mcg Patch -) 1 patch TD Q72H [facility] Last Admin: 12/24/16 23:03 Dose: 1 patch Ferrous Sulfate (Feosol -) 325 mg PO DAILY [facility] Last Admin: 12/27/16 10:51 Dose: 325 mg Furosemide (Lasix -) 60 mg PO BID@0600,1400 [facility] Gemfibrozil (Lopid -) 600 mg PO BID@0700,1630 [facility] Last Admin: 12/27/16 06:10 Dose: Not Given HCTZ/Losartan Potassium (Hyzaar -) 1 tab PO DAILY [facility] Last Admin: 12/27/16 10:52 Dose: 1 tab Hydromorphone HCl (Dilaudid Injection -) 2 mg IVPB Q6H PRN PRN Reason: PAIN Last Admin: 12/26/16 23:32 Dose: 2 mg Insulin Aspart (Novolog Vial Sliding Scale -) 1 vial SQ [facility] PRN Reason: Protocol Last Admin: 12/27/16 11:37 Dose: 2 units Insulin Aspart (Novolog Mix 70/30 Vial) 32 units SQ BIDAC [facility] Last Admin: 12/27/16 06:10 Dose: Not Given Lactulose (Cephulac (Oral Use)) 20 gm PO Q8H PRN PRN Reason: CONSTIPATION Last Admin: 12/25/16 18:54 Dose: 20 gm Metoclopramide HCl (Reglan -) 10 mg PO [facility] Last Admin: 12/27/16 10:51 Dose: 10 mg Miscellaneous (Duragesic Patch Waste) 1 each TD PRN PRN PRN Reason: PAIN Nystatin (Nystatin Oral Suspension -) 500,000 units PO Q6HPO [facility] Last Admin: 12/27/16 11:37 Dose: 500,000 units Oxycodone HCl (Roxicodone -) 15 mg PO Q6H PRN PRN Reason: PAIN Prednisone (Deltasone -) 20 mg PO BID [facility] Last Admin: 12/27/16 10:51 Dose: 20 mg Ranitidine HCl (Zantac -) 150 mg PO BID [facility] Last Admin: 12/27/16 10:51 Dose: 150 mg Roflumilast (Daliresp -) 500 mcg PO DAILY [facility] Last Admin: 12/27/16 10:52 Dose: 500 mcg Senna (Senna -) 1 tab PO BID [facility] Last Admin: 12/27/16 10:51 Dose: 1 tab Sitagliptin Phosphate (Januvia -) 25 mg PO DAILY@0700 [facility] Last Admin: 12/27/16 06:10 Dose: Not Given Sodium Chloride ([place] -) 2 spray NS Q12H PRN PRN Reason: NASAL CONGESTION Tamsulosin HCl (Flomax -) 0.4 mg PO BID [facility] Last Admin: 12/27/16 10:51 Dose: 0.4 mg Terazosin HCl (Hytrin -) 5 mg PO HS [facility] Last Admin: 12/26/16 21:55 Dose: 5 mg - Objective Vital Signs: Vital Signs Temperature 98.2 F 12/27/16 09:53 Pulse Rate 88 12/27/16 12:01 Respiratory Rate 20 12/27/16 09:53 Blood Pressure 155/85 12/27/16 09:53 O2 Sat by Pulse Oximetry (%) 97 12/27/16 12:01 Constitutional: Yes: Calm Eyes: Yes: Conjunctiva Clear HENT: Yes: Atraumatic Neck: Yes: Supple Cardiovascular: Yes: S1, S2 Respiratory: Yes: On Nasal O2, Wheezes Gastrointestinal: Yes: Soft Genitourinary: Yes: WNL Musculoskeletal: Yes: WNL Edema: Yes Edema: LLE: 1+, RLE: 1+ Neurological: Yes: Oriented Psychiatric: Yes: Oriented Labs: CBC, BMP 12/26/16 05:35 12/26/16 05:35 INR, PTT INR 1.04 (0.82-1.09) 12/24/16 14:35 Problem List - Problems (1) Anemia Code(s): D64.9 - ANEMIA, UNSPECIFIED Qualifiers: Qualified Code(s): D64.9 - Anemia, unspecified (2) Diabetes mellitus, insulin dependent (IDDM), uncontrolled Code(s): E10.65 - TYPE 1 DIABETES MELLITUS WITH HYPERGLYCEMIA Qualifiers: Qualified Code(s): E10.9 - Type 1 diabetes mellitus without complications (3) CKD (chronic kidney disease) Code(s): N18.9 - CHRONIC KIDNEY DISEASE, UNSPECIFIED Qualifiers: Qualified Code(s): N18.9 - Chronic kidney disease, unspecified (4) COPD (chronic obstructive pulmonary disease) Code(s): J44.9 - CHRONIC OBSTRUCTIVE PULMONARY DISEASE, UNSPECIFIED Assessment/Plan Current Medications Generic Name Dose Route Start Last Admin Trade Name Freq PRN Reason Stop Dose Admin Acetaminophen 650 mg 12/24/16 21:16 Tylenol - PO Q6H PRN FEVER OR PAIN Albuterol/Ipratropium 1 amp 12/24/16 21:16 12/27/16 08:24 Duoneb - NEB 1 amp Q6H PRN Administration SHORTNESS OF BREATH Albuterol/Ipratropium 1 amp 12/26/16 12:00 12/27/16 11:45 Duoneb - NEB 1 amp QIDR [facility] Administration Allopurinol 300 mg 12/25/16 10:00 12/27/16 10:51 Zyloprim - PO 300 mg DAILY JO[facility] Administration Aspirin 81 mg 12/25/16 10:00 12/27/16 10:51 Ecotrin - PO 81 mg DAILY JOSE [facility] Administration Budesonide/Formoterol Fumarate 2 puff 12/24/16 22:00 12/27/16 10:55 Symbicort 160/4.5mcg - IH 2 puff BID JOSE LU[facility] Administration Diltiazem HCl 120 mg 12/25/16 10:00 12/27/16 10:51 Cardizem Cd - PO 120 mg DAILY [facility] Administration Docusate Sodium 100 mg 12/24/16 21:16 Colace - PO BID PRN CONSTIPATION Docusate Sodium 300 mg 12/24/16 22:00 12/26/16 22:01 Colace - PO Not Given HS JOSE LU[facility] Fentanyl 1 patch 12/24/16 22:30 12/24/16 23:03 Duragesic 75mcg Patch - TD 1 patch Q72H [facility]SE [facility] Administration Ferrous Sulfate 325 mg 12/25/16 10:00 12/27/16 10:51 Feosol - PO 325 mg DAILY [facility] Administration Furosemide 60 mg 12/27/16 14:00 Lasix - PO BID@0600,1400 [facility] Gemfibrozil 600 mg 12/25/16 07:00 12/27/16 06:10 Lopid - PO Not Given BID@0700,1630 [facility] HCTZ/Losartan Potassium 1 tab 12/25/16 10:00 12/27/16 10:52 Hyzaar - PO 1 tab DAILY [facility] Administration Hydromorphone HCl 2 mg 12/25/16 21:21 12/26/16 23:32 Dilaudid Injection - IVPB 2 mg Q6H PRN Administration PAIN Insulin Aspart 1 vial 12/24/16 22:00 12/27/16 11:37 Novolog Vial Sliding Scale - SQ 2 units ACHS [facility] Administration Protocol Insulin Aspart 32 units 12/25/16 07:00 12/27/16 06:10 Novolog Mix 70/30 Vial SQ Not Given BIDAC [facility] Lactulose 20 gm 12/24/16 21:16 12/25/16 18:54 Cephulac (Oral Use) PO 20 gm Q8H PRN Administration CONSTIPATION Metoclopramide HCl 10 mg 12/24/16 22:00 12/27/16 10:51 Reglan - PO 10 mg ACHS [facility] Administration Miscellaneous 1 each 12/24/16 22:30 Duragesic Patch Waste TD PRN PRN PAIN Nystatin 500,000 units 12/27/16 12:00 12/27/16 11:37 Nystatin Oral Suspension - PO 500,000 units Q6HPO [facility] Administration Oxycodone HCl 15 mg 12/24/16 21:16 Roxicodone - PO Q6H PRN PAIN Prednisone 20 mg 12/24/16 22:00 12/27/16 10:51 Deltasone - PO 20 mg BID [facility] Administration Ranitidine HCl 150 mg 12/24/16 22:00 12/27/16 10:51 Zantac - PO 150 mg BID [facility] Administration Roflumilast 500 mcg 12/25/16 10:00 12/27/16 10:52 Daliresp - PO 500 mcg DAILY [facility] Administration Senna 1 tab 12/24/16 22:00 12/27/16 10:51 Senna - PO 1 tab BID [facility] Administration Sitagliptin Phosphate 25 mg 12/25/16 07:00 12/27/16 06:10 Januvia - PO Not Given DAILY@0700 [facility] Sodium Chloride 2 spray 12/24/16 21:16 [place] Nasal [place] - NS Q12H PRN NASAL CONGESTION Tamsulosin HCl 0.4 mg 12/24/16 22:00 12/27/16 10:51 Flomax - PO 0.4 mg BID [facility] Administration Terazosin HCl 5 mg 12/24/16 22:00 12/26/16 21:55 Hytrin - PO 5 mg HS [facility] Administration Impression 1. CKD 2. DM 3. HTN 4. CHF 5. COPD 6. anemia 7. BPH 8. insomnia 9. narcotic dependence Plan - GI input appreciated - no new labs - will need outpt follow up - pt shoudl see Dr Nelson as outpt - cont diuretics - discussed diet again with pt - will follow PRN Dr Nathan
[2016-12-27 12:56] VITALS: BP 135/65; TEMP 98.1
[2016-12-27] MEDS ORDERED: FUROSEMIDE 20 MG TABLET (FP) PO SCH (14:00)
--- NOTE | 2016-12-28 13:44 | PATH ---
Surgical Pathology Report Patient Name: EDWIN COOPER [facility]. Rec. #: [id number] /Age/Gender: 1945 (Age: 71) / M Account: [id number] Location: 4 SO PEDS/ADOL Taken: 12/27/2016 Received: 12/27/2016 Reported: 12/28/2016 Physicians: Amari Lazo M.D. Specimen(s) Received A: BX ESOPHAGUS B: POLYP PROXIMAL TRANSVERSE C: POLYP ILEOCECAL VALVE Clinical History GI bleed, anemia Falguni esophagitis, hemorrhoids, colon polyp Final Diagnosis A. ESOPHAGUS, BIOPSY: SQUAMOUS EPITHELIUM WITH PAPILLOMATOSIS SUGGESTIVE OF REFLUX ESOPHAGITIS, AND SUPERFICIAL ULCERATION. FUNGAL STAIN (PAS) IS POSITIVE FOR NUMEROUS FUNGAL AND YEAST FORMS MORPHOLOGICALLY CONSISTENT WITH FALGUNI SPECIES. B. COLON, PROXIMAL TRANSVERSE, POLYPECTOMY: MULTIPLE PORTIONS OF TUBULOVILLOUS ADENOMA. C. COLON, ILEOCECAL VALVE, BIOPSY: ACELLULAR DEBRIS CONSISTENT WITH PORTION OF STOOL. NO INTACT MUCOSA IDENTIFIED. Comment: Completeness of resection is best assessed by the performing endoscopist. Electronically Signed Carlos Mejia M.D. Gross Description A. Received in formalin, labeled "biopsy esophagus" are 2 long, irregular portions of soft tissue measuring 0.3 and 0.6 cm. in greatest dimension. The specimens are submitted in toto in one cassette. B. Received in formalin, labeled "proximal transverse polyps" are 5 long, irregular portions of soft tissue ranging from 0.1-0.4 cm. in greatest dimension. The specimens are submitted in toto in one cassette. C. Received in formalin labeled "polyp ileocecal valve" is a 0.4 cm in greatest dimension long orange, possible portion of organic debris. No definite soft tissue is identified. The formalin is filtered and the specimen is entirely submitted in one cassette. DL/12/27/2016 saudi/12/27/2016
== END 2016-12-27 13:50 | disposition home or self-care (01) | DRG 393 ==
LOC: JER 14:21 → JERBED 17:56 → J4S 22:40
PROVIDERS: ADMIT Family Medicine; ATTEND Family Medicine
PROC: 30233N1 Transfusion of Nonautologous Red Blood Cells into Peripheral Vein, Percutaneous Approach (ICD-10-PCS; 2016-12-25)
PROC: 0DB58ZX Excision of Esophagus, Via Natural or Artificial Opening Endoscopic, Diagnostic (ICD-10-PCS; principal; 2016-12-27 08:00)
DX: K64.8 Other hemorrhoids (principal); I50.33 Acute on chronic diastolic (congestive) heart failure; I13.0 Hypertensive heart and chronic kidney disease with heart failure and stage 1 through stage 4 chronic kidney disease, or unspecified chronic kidney disease; J96.11 Chronic respiratory failure with hypoxia; J96.12 Chronic respiratory failure with hypercapnia; N17.9 Acute kidney failure, unspecified; B37.81 Candidal esophagitis; K25.9 Gastric ulcer, unspecified as acute or chronic, without hemorrhage or perforation; J44.9 Chronic obstructive pulmonary disease, unspecified; Z99.81 Dependence on supplemental oxygen; E78.5 Hyperlipidemia, unspecified; D64.9 Anemia, unspecified; K21.9 Gastro-esophageal reflux disease without esophagitis; M47.9 Spondylosis, unspecified; E11.22 Type 2 diabetes mellitus with diabetic chronic kidney disease; E11.65 Type 2 diabetes mellitus with hyperglycemia; N18.9 Chronic kidney disease, unspecified; Z79.4 Long term (current) use of insulin; G47.00 Insomnia, unspecified; E66.09 Other obesity due to excess calories; Z68.38 Body mass index [BMI] 38.0-38.9, adult; Z71.3 Dietary counseling and surveillance
CPT/HCPCS: 36415; 36430; 36600; 71010-TC; 80048; 80053; 81003; 82272; 82803; 83690; 83735; 83880; 85025; 85027; 85610; 86850; 86900; 86901; 86922; 88305-TC; 93005; 93010; 93971-TC; 94640; 99285-25; P9038; P9058